=== PATIENT | female | born 1975 | race Caucasian/White ===

== ENCOUNTER → 2017-08-13 15:25 | Outpatient (CLI) | payer OTHER, SELFPAY ==
--- NOTE | 2017-08-13 15:29 | RAD_ITS ---
STUDY: X-RAY - LEFT ANKLE REASON FOR EXAM: Female, 42 years old. Injury. Pain TECHNIQUE: 3 view(s) of the ankle. COMPARISON: None. FINDINGS: Normal visualized distal tibia and fibula. Normal medial and lateral malleoli. Normal tibiotalar articulation and ankle mortise. Normal visualized talus. Plantar spur of the calcaneus. The visualized subtalar, talonavicular, calcaneocuboid and tarsal articulations are normal. There is no demonstrated fracture. The soft tissue structures are unremarkable. RAD/Ankle min 3 Views IMPRESSION: No fracture. Heel spur. Electronically Signed: Wayne Machuca MD at 23:31 EDT , Service support ,
== END ==
PROVIDERS: Family Provider Family Medicine; PCP Family Medicine; Visit Provider Physician Assistant
DX: S99.912A Unspecified injury of left ankle, initial encounter (principal)
CPT/HCPCS: 73610

== ENCOUNTER 2018-02-04 05:52 | Day surgery (SDC) | payer BC, SELFPAY ==
[2018-02-04 06:11] VITALS: BP 128/69; PULSE 79; TEMP 37; O2SAT 99; BMI 33.7
--- NOTE | 2018-02-04 07:54 | PCM.OPRPT ---
Report of Operation Date of Procedure: 02/04/18 Pre-Operative Diagnosis: menorrhaiga Post-Operative Diagnosis: same Surgery/Procedure Performed:: Hysteroscopy with a Ronda endometrial ablation Description of Surgical Findings:: Normal-appearing cervix and vagina, normal-appearing endometrial cavity. planer setter: None Type of Anesthesia:: MAC/Supplemental/Local Anesthesiologist: Karine Thayer Special Medications: none Specimen's removed: none Drains: none Estimated Blood Loss (mL): 10 Fluids Replaced: 700cc Description of Procedure: The patient was taken to the OR where she was prepped and draped in dorsal lithotomy position. The weighted speculum was placed in the vagina and the anterior lip of the cervix was grasped with a single-tooth tenaculum. A paracervical block was administered with 20 cc of 1% lidocaine with 1-100,000 epinephrine solution. The cervix was dilated serially with Hegar dilators. The 5mm hysteroscope was placed into the uterine cavity and the above findings were noted. Bilateral tubal ostia were identified. The uterus sounded to 11 cm and the cervical length was 5 cm. The endometrial cavity length was 6 cm. The hysteroscope was removed. The Ronda device was set to 6 cm. The instrument was then seated into the endometrial cavity and the indicator was in the green. The cervical seal balloon was inflated and the uterine integrity test was passed. The ablation procedure was initiated and completed without interruption. During the ablation procedure gentle traction was held on the tenaculum and the Ronda device was held up against the uterine fundus. When the ablation procedure was completed the Ronda was removed. The tenaculum was removed and the tenaculum site was noted to be hemostatic. All sponge and needle counts were correct. A vaginal sweep was performed by me. The patient was awakened and taken to the recovery room in stable condition. Hysteroscopic ins: 50 cc normal saline Hysteroscopic outs: The cc Findings: Endometrial cavity: Normal, no fibroids or polyps noted Cervix: Normal Vagina: Normal Grafts/Implants Used: none - Complications none - Admit VTE Documentation VTE Present on Admission: No VTE Mechan Device Prophylaxis: SCD's VTE Pharm Prophylaxis ordered?: No Reason prophylaxis not ordered:: Procedure Not Indicated
--- NOTE | 2018-02-04 07:57 | OP.PCM_ITS ---
Report of Operation Date of Procedure: 02/04/18 Pre-Operative Diagnosis: menorrhaiga Post-Operative Diagnosis: same Surgery/Procedure Performed:: Hysteroscopy with a Ronda endometrial ablation Description of Surgical Findings:: Normal-appearing cervix and vagina, normal-appearing endometrial cavity. vtc technician: None Type of Anesthesia:: MAC/Supplemental/Local Anesthesiologist: Karine Thayer Special Medications: none Specimen's removed: none Drains: none Estimated Blood Loss (mL): 10 Fluids Replaced: 700cc Description of Procedure: The patient was taken to the OR where she was prepped and draped in dorsal l ithotomy position. The weighted speculum was placed in the vagina and the anterior lip of the cervix was grasped with a single-tooth tenaculum. A paracervical block was administered with 20 cc of 1% lidocaine with 1-100,000 epinephrine solution. The cervix was dilated serially with Hegar dilators. The 5mm hysteroscope was placed into the uterine cavity and the above findings were noted. Bilateral tubal ostia were identified. The uterus sounded to 11 cm and the cervical length was 5 cm. The endometrial cavity length was 6 cm. The hysteroscope was removed. The Ronda device was set to 6 cm. The instrument was then seated into the endometrial cavity and the indicator was in the green. The cervical seal balloon was inflated and the uterine integrity test was passed. The ablation procedure was initiated and completed without interruption. During the ablation procedure gentle traction was held on the tenaculum and the Ronda device was held up against the uterine fundus. When the ablation procedure was completed the Ronda was removed. The tenaculum was removed and the tenaculum site was noted to be hemostatic. All sponge and needle counts were correct. A vaginal sweep was performed by me. The patient was awakened and taken to the recovery room in stable condition. Hysteroscopic ins: 50 cc normal saline Hysteroscopic outs: The cc Findings: Endometrial cavity: Normal, no fibroids or polyps noted Cervix: Normal Vagina: Normal Grafts/Implants Used: none - Complications none - Admit VTE Documentation VTE Present on Admission: No VTE Mechan Device Prophylaxis: SCD's VTE Pharm Prophylaxis ordered?: No Reason prophylaxis not ordered:: Procedure Not Indicated
[2018-02-04 08:00] VITALS: BP 110/62; BP 128/69; PULSE 93; RESP 16; TEMP 36.1; O2SAT 98
[2018-02-04 08:05] VITALS: BP 128/69; BP 94/63; PULSE 88; RESP 16; O2SAT 99
[2018-02-04 08:10] VITALS: BP 107/65; BP 128/69; PULSE 85; RESP 16; O2SAT 98
[2018-02-04 08:20] VITALS: BP 128/69; BP 98/67; PULSE 93; RESP 16; TEMP 36.9; O2SAT 98
[2018-02-04] MEDS: HYDROcodone Bitartrate/Apap 5/325 Tablet PO (08:37)
--- NOTE | 2018-02-04 08:42 | PCM.DC.D&C ---
Discharge Diet: No Restrictions Discharge Activity: Return to Normal Activity, May Shower, May Take a Tub Bath - in 2 weeks. Return to work on:: 02/06/18 May shower in (days): 0 May resume sexual activity in: 2 weeks Call your doctor if your incision/area has: Sudden Increased Bleeding, Foul Smelling Discharge Call your doctor if you observe: Fever of 101 or Higher, Using more than one pad per hour - for 2 hrs in a row Allergies/Adverse Reactions: Allergies ibuprofen [From Motrin] Allergy (Verified 01/28/18 08:40) Shortness of breath Medications to take at Discharge Biotin 5,000 mcg PO DAILY 01/28/18 Calcium Citrate 400 mg PO BID 01/28/18 Cholecalciferol (Vitamin D3) [Vitamin D3] 2,000 unit PO BID 01/28/18 Cyanocobalamin [Vitamin B12] 1,000 mcg PO WE 01/28/18 Ferrous Sulfate [Iron] 325 mg PO DAILY 01/28/18 Multivitamin [Multiple Vitamins] 1 each PO DAILY 01/28/18 Hydrocodone Bitart/Apap 5-325 [[place] 5MG-325MG] 1 tablet PO Q6H PRN PRN 4 Days #8 tablet 02/04/18 Ibuprofen [Motrin] 600 mg PO Q6H PRN #60 tablet 02/04/18 The following prescriptions were given: Hydrocodone Bitart/Apap 5-325 [[place] 5MG-325MG] 1 tablet PO Q6H PRN PRN 4 Days #8 tablet PRN Reason: Pain Ibuprofen [Motrin] 600 mg PO Q6H PRN #60 tablet PRN Reason: Pain Primary Care Physician: Care Physician,No Primary [Primary Care Provider] - Test Results: Test results from this visit will be discussed in further detail at your follow-up appointment, if applicable. Please Follow Up With: Sissy Rodriguez MD - [phone] When: 2-4 weeks or prn
[2018-02-04 08:56] VITALS: BP 120/78; BP 128/69; PULSE 78; RESP 16; TEMP 36.8; O2SAT 99
== END 2018-02-04 08:58 | disposition home or self-care (01) ==
LOC: SDC 05:53 → AC 05:55
PROVIDERS: Referring Provider Obstetrics & Gynecology; Visit Provider Obstetrics & Gynecology
PROC: 0U5B8ZZ Destruction of Endometrium, Via Natural or Artificial Opening Endoscopic (ICD-10-PCS; CPT 58558; principal; 2018-02-04 07:15)
DX: N92.0 Excessive and frequent menstruation with regular cycle (principal); D64.9 Anemia, unspecified; Z79.899 Other long term (current) drug therapy; G47.30 Sleep apnea, unspecified; Z98.84 Bariatric surgery status
CPT/HCPCS: 58563; J7120; J2405

== ENCOUNTER 2019-11-03 18:37 | Emergency (ER) | payer OTHER, SELFPAY ==
[2019-11-03 18:37] VITALS: BP 130/80; PULSE 88; RESP 18; TEMP 36.7; O2SAT 93; BMI 44.9
--- NOTE | 2019-11-03 19:32 | ED.VISSUMM ---
- ER Visit Summary Date of Service: 11/03/19 Chief Complaint: Midthoracic back pain acute on chronic History of Present Illness: The patient is a 44 F history of chronic back pain states he had back pain for months. It comes and goes. Worse laying supine. No fever. No chills. No prior back surgery. No prior back MRI. She has seen a chiropractor in the past. Denies any trauma. No leg weakness or numbness. No bowel or bladder incontinence. No dysuria. She has had symptoms like this before. Physical Examination: Middle-aged female no acute distress vital signs stable afebrile. H EENT exam unremarkable. Neck nontender. Lungs clear to auscultation bilaterally. Heart regular rhythm no murmur. Abdomen soft nontender normal bowel sounds no peritoneal signs. Extremities moves all 4. Neurovascular intact. 5-5 human anatomy teacher strength. Dorsi plantarflexion intact. She standing. She can raise up on her toes without any difficulty. No cauda equina. No saddle anesthesia. Back she points to her mid thoracic spine it hurts but is not reproducibly tender. There is no ecchymosis or bruising. No subcu air. No redness or warmth. There is no reproducible tenderness to her spine or paraspinal soft tissues. Neurologically she is awake and alert with no focal motor or sensory deficits. Normal motor strength and sensation bilaterally. Test Results: None Emergency Department Course and Treatment: Patient musculoskeletal back pain. Treated with p.o. Motrin. Treatment Plan: Referred to primary care physician Marck Andrade. Follow-up with not improving. Motrin for pain. Disposition: discharge Impression: Acute thoracic musculoskeletal back pain This note was generated with [employer] dictation software. It may contain incorrect words, spelling, and punctuation that were not noted in review of the chart prior to signing ED Disposition - Plan for ED Patient: Referrals: Care Physician,No Primary [Primary Care Provider] -
--- NOTE | 2019-11-03 19:35 | ED.DEP ---
ED Disposition - Plan for ED Patient: Disposition: Home or Assisted Living Instructions: ED Back Pain Acute or Chronic Referrals: Marck Andrade MD [[facility]] - 1 Week if not improving Additional Instructions: Motrin, Advil or ibuprofen for pain. May also use Tylenol. Follow-up if not improving.
[2019-11-03] MEDS: Ibuprofen 400 MG Tablet 800 MG PO (19:43)
[2019-11-03 19:44] VITALS: BP 126/78; PULSE 78; RESP 18; O2SAT 96
== END 2019-11-03 19:45 | disposition home or self-care (01) ==
PROVIDERS: Emergency Provider Emergency Medicine
DX: M54.6 Pain in thoracic spine (principal); G89.29 Other chronic pain
CPT/HCPCS: 99283

== ENCOUNTER → 2020-12-19 14:11 | Outpatient (CLI) | payer OTHER, SELFPAY ==
[2020-12-19 17:11] LABS: Thyroid Stim Hormone (TSH) 0.87 uIU/mL (0.358-3.74)
[2020-12-19 17:14] LABS: Vitamin B12 402 pg/mL (211-911); Vitamin D,25 Hydroxy 24.5 ng/mL
== END ==
LOC: BIMLAB 14:15
PROVIDERS: PCP Internal Medicine; Referring Provider Nurse Practitioner Family; Visit Provider Nurse Practitioner Family
DX: E53.8 Deficiency of other specified B group vitamins (principal); E66.9 Obesity, unspecified
CPT/HCPCS: 36415; 82306; 82607; 84443

== ENCOUNTER 2021-03-13 11:43 | Outpatient (CLI) | payer OTHER, SELFPAY ==
[2021-03-13 15:35] LABS: Anion Gap 5 (5-15); BUN 12 mg/dL (7-18); BUN/Creat Ratio 18.3 RATIO (10-20); Calcium,Total 9.9 mg/dL (8.5-10.1); Chloride 107 mmol/L (98-107); Creatinine, Serum 0.65 mg/dL (0.55-1.02); EST Glomerular Filtration Rate 105 mL/min (>60); Est Glom Filt Rate - Afr Amer 127 mL/min (>60); Glucose 84 mg/dL (74-106); Potassium 4.5 mmol/L (3.5-5.1); Sodium Level 140 mmol/L (136-145)
== END 2021-03-13 23:59 | disposition short-term general hospital (02) ==
LOC: BIMLAB 11:50
PROVIDERS: PCP Internal Medicine; Referring Provider Nurse Practitioner Family; Visit Provider Nurse Practitioner Family
DX: L65.9 Nonscarring hair loss, unspecified (principal)
CPT/HCPCS: 36415; 80048; 84443

== ENCOUNTER 2021-04-19 07:56 | Outpatient (CLI) | payer OTHER, SELFPAY ==
--- NOTE | 2021-04-19 08:00 | VDLE_ITS ---
Reason For Study: leg swelling RIGHT LEFT CFV is compressible, spontaneous, phasic, CFV is compressible, spontaneous, phasic, competent and demonstrates normal competent, and demonstrates normal augmentation. augmentation. FV is compressible, spontaneous, phasic, FV is compressible, spontaneous, phasic, competent and demonstrates normal competent and demonstrates normal augmentation. augmentation. POP V is compressible, spontaneous, phasic, POP V is compressible, spontaneous, phasic, competent and demonstrates normal competent and demonstrates normal augmentation. augmentation. T/P Trunk is compressible. T/P Trunk is compressible. PTV is compressible. PTV is compressible. RT PerV is compressible. LT PerV is compressible. SFJ is competent and measures 0.70 x 0.70 cm. SFJ is competent and measures 0.51 x 0.70 cm. GSV proximal thigh measures 0.66 x 0.55 cm. GSV proximal thigh measures 0.53 x 0.58 cm. GSV at knee measures 0.45 x 0.42 cm. GSV at knee measures 0.48 x 0.49 cm. GSV is competent throughout. GSV is competent throughout. SSV proximal calf is competent and measures SSV proximal calf is competent and measures 0.24 x 0.27 cm. 0.22 x 0.24 cm. Compressible varocosities noted prox/anterior thigh, lateral knee and prox/lateral calf. Procedure This is a venous duplex using B-mode, color flow and spectral Doppler. Exam performed in department. The exam was diagnostic. VL/Venous Duplex US - Christiano Extrem Interpretation Summary Deep veins of the lower extremities are bilaterally patent and compressible seg mentally. There is no evidence of deep vein thrombosis on either side. Valvular competence appears in tact within the proximal deep venous systems bilaterally. The great saphenous veins appear bila terally patent and compressible segmentally. Sapheno-femoral junctions are bilaterally competent . Valvular competence appears to be intact segmentally within the great saphenous veins bilaterally. Small saphenous veins are patent and competent bilaterally. Superficial varicosities are noted in the right thigh and calf. Ordering Physician: Reji Duckworth Referring Physician: Mynor Garcia Performed By: Mariposa Reeves, ALPHONSO, RVT
== END 2021-04-19 23:59 | disposition home or self-care (01) ==
LOC: CVS 07:57
PROVIDERS: PCP Internal Medicine; Referring Provider Surgery; Visit Provider Surgery
DX: M79.89 Other specified soft tissue disorders (principal); M79.606 Pain in leg, unspecified
CPT/HCPCS: 93970

== ENCOUNTER 2021-06-07 16:52 | Outpatient (CLI) | payer OTHER, SELFPAY ==
[2021-06-14 13:29] LABS: HPV APTIMA, High Risk Negative (Negative)
== END 2021-06-07 23:59 | disposition home or self-care (01) ==
LOC: OPBI 16:53
PROVIDERS: PCP Internal Medicine; Visit Provider Obstetrics & Gynecology
DX: Z12.4 Encounter for screening for malignant neoplasm of cervix (principal)
CPT/HCPCS: 87624; 88175; G0145

== ENCOUNTER 2021-06-13 13:14 | Outpatient (CLI) | payer OTHER, SELFPAY ==
--- NOTE | 2021-06-13 13:17 | BI_ITS ---
MAMMOGRAPHY - BILATERAL SCREENING REASON FOR EXAM: Female, 46 years old. Routine annual screening examination. PERTINENT HISTORY: Non-contributory. TECHNIQUE: Digital bilateral breast adriana (3D mammographic acquisition) in the CC and MLO projections. 2-D mediolateral oblique (MLO) and craniocaudad (CC) views of both breasts were obtained. CAD: Full Field Digital Mammography with Computer Added Detection was performed. COMPARISON: None. Baseline examination. FINDINGS: Breast Composition: There are scattered areas of fibroglandular density. There are no dominant masses or suspicious calcifications. No other significant abnormalities are identified. BI/SCRN MAMM (CAD)W/ADRIANA BILAT IMPRESSION: Negative screening mammogram. Yearly followup mammogram recommended. (A) ASSESSMENT CATEGORY: BIRADS Category 1: Negative. A letter regarding these results will be sent to the patient by the facility within 30 days. Approximately 10% of breast cancers are not detected by mammography. A normal mammogram should not delay biopsy of a clinically suspicious abnormality. [id number] Electronically Signed: Jose Mejía MD at 14:21 EDT ,
== END 2021-06-13 23:59 | disposition home or self-care (01) ==
LOC: OPBI 13:15
PROVIDERS: PCP Internal Medicine; Visit Provider Obstetrics & Gynecology
DX: Z12.31 Encounter for screening mammogram for malignant neoplasm of breast (principal)
CPT/HCPCS: 77063; 77067

== ENCOUNTER 2021-06-14 11:14 | Outpatient (CLI) | payer OTHER, SELFPAY ==
--- NOTE | 2021-06-14 11:15 | US_ITS ---
STUDY: ULTRASOUND OF THE FEMALE PELVIS - COMPLETE REASON FOR EXAM: Female, 46 years old. Mixed incontinence LMP: 05/15/2021. TECHNIQUE: Transabdominal and Transvaginal TECHNICAL QUALITY: Adequate. COMPARISON: None. FINDINGS: The uterus is anteverted and is in a midline position. The uterus measures 12 cm x 5.8 cm x 5.7 cm. There is a Nabothian cyst of the cervix. The endometrium measures 5.2 mm in thickness, and is hyperechoic. There is no demonstrated endometrial mass. There is a 2.7 cm x 2.4 cm x 1.9 sono fundal fibroid. I.U.D. - The patient does not have an I.U.D. The right ovary is visualized. The right ovary measures 2.8 cm x 2.5 cm x 1.5 cm. There is no right ovarian cyst or ovarian mass. There is no visualized right adnexal mass or complex lesion. There is normal arterial and normal venous vascularity. The left ovary is visualized. The left ovary measures 4.1 cm x 2.5 cm x 2.2 cm. There is a 2.5 cm x 2.2 cm by 2.1 cm left ovarian cyst. There is no visualized left adnexal mass or complex lesion. There is normal arterial and normal venous vascularity. There is no fluid in the cul-de-sac. The pre void volume of the bladder was 982 ml. US/Pelvic (Non ) IMPRESSION: Fibroid uterus. 2.5 cm x 2.2 cm x 2.1 cm left ovarian cyst. Electronically Signed: Jose Mejía MD at 13:50 EDT ,
--- NOTE | 2021-06-14 11:15 | US_ITS ---
STUDY: ULTRASOUND OF THE FEMALE PELVIS - COMPLETE REASON FOR EXAM: Female, 46 years old. Mixed incontinence LMP: 05/15/2021. TECHNIQUE: Transabdominal and Transvaginal TECHNICAL QUALITY: Adequate. COMPARISON: None. FINDINGS: The uterus is anteverted and is in a midline position. The uterus measures 12 cm x 5.8 cm x 5.7 cm. There is a Nabothian cyst of the cervix. The endometrium measures 5.2 mm in thickness, and is hyperechoic. There is no demonstrated endometrial mass. There is a 2.7 cm x 2.4 cm x 1.9 sono fundal fibroid. I.U.D. - The patient does not have an I.U.D. The right ovary is visualized. The right ovary measures 2.8 cm x 2.5 cm x 1.5 cm. There is no right ovarian cyst or ovarian mass. There is no visualized right adnexal mass or complex lesion. There is normal arterial and normal venous vascularity. The left ovary is visualized. The left ovary measures 4.1 cm x 2.5 cm x 2.2 cm. There is a 2.5 cm x 2.2 cm by 2.1 cm left ovarian cyst. There is no visualized left adnexal mass or complex lesion. There is normal arterial and normal venous vascularity. There is no fluid in the cul-de-sac. The pre void volume of the bladder was 982 ml. US/Transvaginal Non- IMPRESSION: Fibroid uterus. 2.5 cm x 2.2 cm x 2.1 cm left ovarian cyst. Electronically Signed: Jose Mejía MD at 13:50 EDT ,
== END 2021-06-14 23:59 | disposition home or self-care (01) ==
LOC: US 11:14
PROVIDERS: PCP Internal Medicine; Referring Provider Obstetrics & Gynecology; Visit Provider Obstetrics & Gynecology
DX: N39.46 Mixed incontinence (principal)
CPT/HCPCS: 76830; 76856

== ENCOUNTER → 2021-07-22 | Outpatient (CLI) | payer OTHER, SELFPAY | END | disposition home or self-care (01) | LOC: RAD 12:02 | PROVIDERS: PCP Internal Medicine; Referring Provider Chiropractor; Visit Provider Chiropractor | DX: M99.02 Segmental and somatic dysfunction of thoracic region (principal) | CPT/HCPCS: 72070 ==

== ENCOUNTER → 2021-08-25 | Outpatient (CLI) | payer OTHER, SELFPAY ==
[2021-08-25 14:22] LABS: Bacteria 0 SEEN /hpf (None Seen); Mucous, Urine 0 SEEN /hpf (<or=2+); Red Blood Cells-Urine 0 SEEN /hpf (0-5); Squamous Epithelial Cells - UA 0 SEEN /hpf (5-10)
[2021-08-25 14:35] LABS: Color, Urine Yellow (Yellow); Glucose, Dipstick Normal (Normal); Ketone-Dipstick Negative (Negative); Leukocyte Esterase-Dipstick 500 /ul (Negative); Nitrite-Dipstick Negative (Negative); Occult Blood-Urine 250 /ul (Negative); Protein-Dipstick 30 mg/dl (Negative); Urine Bilirubin Dipstick Negative (Negative); Urine Clarity Clear (Clear); Urine Urobilinogen Normal (Normal)
[2021-08-25 14:45] LABS: White Blood Cells 10-25 SEEN /hpf (0-5)
== END | disposition home or self-care (01) ==
PROVIDERS: PCP Internal Medicine; Visit Provider Nurse Practitioner Family
DX: R30.9 Painful micturition, unspecified (principal)
CPT/HCPCS: 81001; 87077; 87086; 87088

== ENCOUNTER → 2021-09-08 | Outpatient (CLI) | payer OTHER, SELFPAY ==
[2021-09-08 15:11] LABS: Bacteria 0 SEEN /hpf (None Seen); Mucous, Urine 0 SEEN /hpf (<or=2+)
[2021-09-08 15:18] LABS: Color, Urine Straw (Yellow); Glucose, Dipstick Normal (Normal); Ketone-Dipstick Negative (Negative); Leukocyte Esterase-Dipstick 500 /ul (Negative); Nitrite-Dipstick Negative (Negative); Occult Blood-Urine 150 /ul (Negative); Protein-Dipstick 30 mg/dl (Negative); Urine Bilirubin Dipstick Negative (Negative); Urine Clarity Clear (Clear); Urine Urobilinogen Normal (Normal)
[2021-09-08 15:30] LABS: Red Blood Cells-Urine 5-10 SEEN /hpf (0-5); Squamous Epithelial Cells - UA 0-5 SEEN /hpf (5-10); White Blood Cells 10-25 SEEN /hpf (0-5)
== END | disposition home or self-care (01) ==
PROVIDERS: PCP Internal Medicine; Visit Provider Nurse Practitioner Family
DX: N39.0 Urinary tract infection, site not specified (principal)
CPT/HCPCS: 81001; 87077; 87086; 87088; 87186

== ENCOUNTER 2021-10-17 18:03 | Observation (INO) | payer OTHER, SELFPAY ==
--- NOTE | 2021-10-08 15:39 | EKG12_ITS ---
Test Reason : PRE-OP Blood Pressure : / mmHG Vent. Rate : 061 BPM Atrial Rate : 061 BPM P-R Int : 172 ms QRS Dur : 092 ms QT Int : 430 ms P-R-T Axes : 033 027 041 degrees QTc Int : 432 ms Normal sinus rhythm Low voltage QRS Borderline ECG Confirmed by JOSE VICTOR, YVAN ([id number]), make up editor DANYA ONTIVEROS ([id number]) on 10/09/2021 12:51:48 PM Referred By: Allie Coker Confirmed By:YVAN GARCIA MD
[2021-10-14 07:17] LABS: Hematocrit 36.8 % (37-47); Hemoglobin 11.9 g/dL (12.0-15.0); Mean Corp Hgb Conc 32.3 g/dL (32-36); Mean Corpuscular Hgb 27.9 pg (27.0-32.0); Mean Corpuscular Volume 86.2 fL (81-99); Platelet Count 276 K/mm3 (150-450); RBC Distribution Width CV 13.6 % (11.6-14.6); Red Blood Count 4.27 M/mm3 (4.2-5.4); White Blood Count 6.2 K/mm3 (4.4-11.0)
[2021-10-14 07:33] LABS: Partial Thromboplast Time 29.7 Seconds (24.1-36.2)
[2021-10-14 07:52] LABS: Magnesium 2.2 mg/dL (1.6-2.6)
[2021-10-17] VITALS (19 sets, daily range): BP systolic 107–128; BP diastolic 63–80; PULSE 42–102; RESP 14–18; TEMP 36.3–37.2; O2SAT 93–100; BMI 43.4
--- NOTE | 2021-10-17 | HYST_PTH ---
PATIENT: FABIENNE FRANKS LOC: MS3 U#:[id number] AGE/SX: 46/F ROOM: [facility] [place] RE10/17/[address]: Dr. Allie Coker DO : 1975 BED: 1 DIS: 10/18/2021 SPEC #: [id number] RECD: 10/17/21 12:50 STATUS: CHATO ZAMARRIPABre #: [id number] CARLY: 10/17/21 00:[address]: Allie Coker DEPT: SURGICAL PATHOLOGY RECD BY: Mani Soriano ENTERED: 10/17/21 12:50 SP TYPE: HYSTERECT OTHR DR: MD Dr. Mynor Delatorre MD Dr. Holly Wyneski, MD Tissues: Uterus, NOS Procedures: Surgery Specimen Level V HEADER OPERATION: ERAS, total robotic hysterectomy, right salpingectomy, mid urethral salpingectomy PRE-OP DIAGNOSIS: Dyspareunia, abnormal uterine bleeding, stress urinary incontinence TISSUE SUBMITTED: Uterus, cervix, right fallopian tube MICROSCOPIC DIAGNOSIS Uterus, cervix, right fallopian tube, hysterectomy and right salpingectomy: Cervix ? chronic inflammation. Endometrium ? mostly denuded endometrium with focal area of proliferative endometrium, consistent with h/o endometrium ablation. Myometrium ? focal adenomyosis - a small intramural leiomyoma. Right fallopian tubes - no pathologic diagnosis. 10/18/2021 MICROSCOPIC DESCRIPTION Slides are reviewed. GROSS DESCRIPTION Received in fixative is one container labeled with the patient's name and designated uterus. The specimen consists of a hysterectomy specimen consisting of uterus, cervix and detached fallopian tube identified as right. The uterus with cervix weighs 121.5 gm and measures 12 x 7 x 5 cm. The serosal surface is ragged anteriorly. A filschie clip is noted at the right cornua and appears intact. The ectocervical mucosa is unremarkable. The external os is circular in contour. The endocervical canal measures 4.5 cm in length and the endocervical mucosa is unremarkable. The endometrial cavity is narrow and measures 5 cm in length and 0.5 cm in width. The endometrium is hdez, glistening and measures 0.1 cm in thickness. Sections of the uterine wall reveal one small nodular mass in the anterior uterine wall measuring 0.5 cm in diameter. Uterine wall measures up to 3.0 cm in thickness. The fallopian tube measures 3.5 cm in length and 1.0 cm in diameter. Fimbrial end is identified. Sections reveal unremarkable cut surfaces. Canvas Cutter Machine sections are submitted in seven cassettes as follows: 1 - anterior cervix, 2 - posterior cervix, 3 & 4 - anterior uterine wall (cassette 3 contains the nodular mass), 5 & 6 - posterior uterine wall, 7 ? right fallopian tube. /SJ:cc 10/17/21 TC:5 CPT: 44559
[2021-10-17 06:10] LABS: Bedside Glucose 77 mg/dL (74-106)
[2021-10-17] MEDS: Lactated Ringers 1,000 ML 40 ML IV (06:17)
[2021-10-17] MEDS: Scopolamine 1mg/72hr Patch 1 PATCH TD (06:23)
[2021-10-17] MEDS: Gabapentin 600 MG Tablet PO (06:23)
[2021-10-17] MEDS: Acetaminophen 500 MG Tablet 1000 MG PO ×2 (06:23→19:07)
[2021-10-17 06:42] LABS: Internal QC Validated? YES +Cl - CLEAR BKGD; Pregnancy, Urine Negative Negative
--- NOTE | 2021-10-17 08:03 | HP.PCM_ITS ---
History and Physical Date of Admission: 10/17/21 Name:? FABIENNE FRANKS Rep #: [id number] : 1975 ? ? Provider: Dr. Allie Coker, DO Age/Sex:? 46/F ? ? Location: [facility] [place] Status: Signed Intake Vital Signs ? 07/16/2214:43 09/26/2214:20 Height 5 ft 4 in 5 ft 4 in Weight: ? 257 lb 8 oz BMI ? 44.1 BP ? 118/82 H Intake Visit Reasons:?total robotic hyst BS cysto Grip Required: No Is patient in pain?: Yes Allergies ibuprofen [From Motrin] Allergy (Verified 09/26/21 15:42) Shortness of breath Medications cyanocobalamin (vitamin B-12) 1,000 mcg/mL injection solution 1,000 mcg IM QMONTH 06/26/21 [History Confirmed 09/26/21] Is last menstrual period known: Yes Post menopausal: No Patient : No : No Current gender identity: female [facility] Medical History? Back pain Chronic back pain Hair loss disorder Neck pain Obesity Tiredness Varicose veins of both lower extremities Vitamin B12 deficiency Weight loss Surgical History? History of History of endometrial ablation History of gastric stapling History of tonsillectomy History of tubal ligation Family History? Father Diabetes Heart disease Lung cancer ?? ? smoker- agent orange ?? ? Social History? current gender identity:? female Smoking Status:? Never smoker alcohol intake:? never substance use type:? does not use caffeine:? Yes what type of physical activity do you participate in:? none seatbelt use:? always do you feel safe at home:? Yes additional social history:? Jose- [employer] in [place] patient works at [employer] HPI total robotic hyst BS cysto Details: FABIENNE FRANKS is a 46 year old who presents for Pregancy History ? ? ? 3 ? Elective abortions ? Hx Para ? ? ? 3 ? Spontaneous abortions ? Hx # Term Pregnancies ? Ectopic pregnancies ? Hx # Pregnancies ? Multiple births ? # of living children ? Past Pregnancies Del. Date Name GA/Weeks Outcome Route Bth Weight Infant Gen Labor Lgth Anesthesia Del Locatn Provider FOB Unknown [facility] ? live - full term C -section ? Unknown 2000 [facility] ? live - full term C-sec tion ? Unknown 2005 [facility] ? live - full term C -section ? ROS Const ROS Unobtainable: All systems reviewed & are unremarkable except as noted in H Resp Resp: Reports system reviewed and no additional complaints, except as documented; Denies cough GI GI: Reports as per HPI Psych Psych: Reports system reviewed and no additional complaints, except as documented Exam Const General: cooperative, healthy appearing, comfortable and no acute distress Resp Effort & Inspection: normal respiratory effort Skin General: no rashes or lesions noted Psych Appearance: grossly normal Speech and Movement: speech and movement normal Coding Level of Care Code Off vis,est,level 5 Diagnoses Dyspareunia? Abnormal uterine bleeding? N93.9 Obesity? E66.9 Assessment and Plan Assessment and Plan (1) Dyspareunia: ?Status:?Acute ?Comment: deep- doxycycline ordered, US, if no resolution suspect adenomyosis. (2) Abnormal uterine bleeding: ?Status:?Acute ?Comment: s/p ablation, now reduced bleeding but irregular and painful. ordered US (3) Obesity: ?Status:?Acute Plan After discussing the patient's diagnosis and treatment plan options, patient wishes to proceed with surgical management. The plan is for a total robotic hysterectomy, bilateral salpingectomy, cystoscopy on 10/17/2021 ?I have discussed with the patient the risks, benefits, and alternatives of the procedure which include but are not limited to risks of anesthesia, bleeding, infection, possible damage to bowel, bladder, or surrounding vasculature which could lead to additional surgery to evaluate any complications.? Patient agrees to procedure and wishes to proceed.? ACOG/uptodate references given for additional information regarding procedure.? Plan Details Goals & Barriers: Goals Decrease spasm Improve sleep Decrease pain Barriers Overuse UPDATE- I have seen the patient and performed any clinically relevant updates to the history and physical exam. Allie Coker, DO
[2021-10-17] MEDS: Cefazolin 2 GM in 0.9% Normal Saline 100 ML IV (08:06)
--- NOTE | 2021-10-17 08:07 | PCM.DC ---
Discharge Instructions Diet Discharge Diet: No restrictions Activity May resume sexual activity in: 6 weeks Weight Bearing Status: Full weight bearing Dressing / Incision Call your doctor if your incision/area has: Continuous Slow Oozing, Sudden Increased Bleeding, Increased Pain/ Swelling, Increased Redness and Foul Smelling Discharge Call your doctor if you observe: Fever of 101 or Higher, Using more than 1 pad per hour, Shortness of breath, Chest pain and Uncontrolled pain Suture Line Care: Avoid Pulling/Pushing and Avoid Pinching/Bending Remove Dressing in: 1 week (if present) Cleanse incision/area with: Soap & Water and Keep Dressing Clean & Dry Follow Up Care Please Follow Up With: Allie Coker DO When: Call to make an appointment with your doctor for a postop visit in 2 and 6 weeks Test Results: Test results from this visit will be discussed in further detail at your follow-up appointment, if applicable. Discharge Plan Admission Primary Reason for Your Visit: hysterectomy and sling procedure Attending Provider: Allie Coker Primary Care Provider: Mynor Garcia Consulting Providers: Marck Sampson ; Antonia Torres Discharge Orders/Prescriptions Prescriptions: New oxycodone-acetaminophen [Percocet] 5-325 mg tablet 1 tab PO Q4H PRN (Reason: pain) 7 Days Qty: 30 0RF naproxen 500 mg tablet 500 mg PO BID PRN PRN (Reason: Pain) Qty: 30 0RF No Action cyanocobalamin (vitamin B-12) 1,000 mcg/mL solution 1,000 mcg IM QMONTH Other Ambulatory Orders: ,Urine (Routine) Timeframe: 20211017 Facility: [facility] - Location: Laboratory Ordered By: Dr. Allie Coker Referrals / Follow Up: Mynor Garcia MD [Primary Care Provider] - Disposition Disposition (needs filled in before D/C Order can be placed): Home, Self Care
--- NOTE | 2021-10-17 08:52 | PCM.OPRPT ---
Report of Operation Date of Procedure: 10/17/21 Pre-Operative Diagnosis: Stress urinary incontinence Post-Operative Diagnosis: Same Surgery/Procedure Performed:: Mid urethral sling insertion, cystourethroscopy with bilateral ureteral catheterization Surgeon: Antonia Torres Type of Anesthesia: General Estimated Blood Loss (mL): 25 cc Description of Procedure: The patient is a 46-year-old female undergoing a robotic assisted laparoscopic hysterectomy and mid urethral sling insertion for management of her stress incontinence. Informed consent was obtained. The patient was taken to the operating room and placed on the operating room table. Anesthesia monitored the head, neck, airway, IV access and vital signs throughout the case. Once anesthesia was appropriate ministered, the patient was placed into the dorsal lithotomy position. A Cano catheter was inserted to straight drain. Dr. Hawley performed her part of the procedure and the case was turned over to az. The mid urethra was isolated and injected submucosally with vasopressin for hydrostatic dissection and hemostatic control. A midline vertical 2 cm incision was made and sharp and blunt dissection was then performed on either side of the urethra. Care was taken to avoid entrance into the urethra or the vaginal mucosa. Using the provided trochars, the Altis mid urethral sling was inserted into the transobturator complexes bilaterally. The sling was positioned using the tensioning suture. The suture was then cut. The incision was closed using running interlocking 2-0 Vicryl. The Cano catheter was removed and the cystoscope was inserted under direct visualization through the urethra into the urinary bladder. The bladder mucosa was visualized and found to be without evidence of foreign body, hemorrhage, injury or mass. A whistle-tip catheter was used to gently cannulate each ureteral orifice and it was advanced to 20 cm bilaterally without difficulty or evidence of injury. At this time the bladder was emptied and the cystoscope was removed. The patient was awakened and taken to the recovery room in good condition. There were no complications during this procedure. Grafts/Implants Used: Altis mid urethral sling Complications None Admit VTE Documentation VTE Present on Admission: Yes VTE Mechan Device Prophylaxis: SCD's VTE Pharm Prophylaxis ordered?: No Reason prophylaxis not ordered:: Treatment Not Indicated
[2021-10-17] MEDS: Bupivacaine 0.25% 30 ML Vial (10:45)
[2021-10-17] MEDS: Ondansetron 4 MG/2 ML Vial IV (10:55)
--- NOTE | 2021-10-17 12:06 | EX.PCM.DISCH ---
Discharge Instructions Diet Discharge Diet: No restrictions Activity Discharge Activity: May Shower May resume sexual activity in: 6 weeks Weight Bearing Status: Full weight bearing Dressing / Incision Call your doctor if your incision/area has: Continuous Slow Oozing, Sudden Increased Bleeding, Increased Pain/ Swelling, Increased Redness and Foul Smelling Discharge Call your doctor if you observe: Fever of 101 or Higher, Using more than 1 pad per hour, Shortness of breath, Chest pain and Uncontrolled pain Suture Line Care: Avoid Pulling/Pushing and Avoid Pinching/Bending Cleanse incision/area with: Soap & Water and Keep Dressing Clean & Dry Follow Up Care Please Follow Up With: Allie Coker DO When: with , call for appt Test Results: Test results from this visit will be discussed in further detail at your follow-up appointment, if applicable. Discharge Plan Admission Primary Reason for Your Visit: hysterectomy and sling procedure Attending Provider: Allie Coker Primary Care Provider: Mynor Garcia Consulting Providers: Marck Sampson ; Antonia Torres Discharge Orders/Prescriptions Prescriptions: New oxycodone-acetaminophen [Percocet] 5-325 mg tablet 1 tab PO Q4H PRN (Reason: pain) 7 Days Qty: 30 0RF naproxen 500 mg tablet 500 mg PO BID PRN PRN (Reason: Pain) Qty: 30 0RF cephalexin [cephalexin] 500 mg capsule 500 mg PO Q12 3 Days Qty: 6 0RF No Action cyanocobalamin (vitamin B-12) 1,000 mcg/mL solution 1,000 mcg IM QMONTH Other Ambulatory Orders: ,Urine (Routine) Timeframe: 20211017 Facility: [facility] - Location: Laboratory Ordered By: Dr. Allie Coker Referrals / Follow Up: Mynor Garcia MD [Primary Care Provider] - Disposition Disposition (needs filled in before D/C Order can be placed): Home, Self Care
[2021-10-17] MEDS: Lactated Ringers 1,000 ML 100 ML IV (13:05)
[2021-10-17] MEDS: HYDROcodone Bitartrate/Apap 5/325 Tablet PO (16:49)
--- NOTE | 2021-10-17 17:13 | OP.PCM_ITS ---
Operative Report Date of Procedure: 10/17/21 Preoperative diagnosis: Menorrhagia pelvic pain fibroid uterus Postoperative diagnosis: Menorrhagia pelvic pain fibroid uterus Procedure: Total robotic hysterectomy, lysis of adhesions Anesthesia: General endotracheal intubation Estimated blood loss: 200cc Urine output:400cc Drains: None Implanted material: None Complications: None Surgeon: Dr. Allie Coker DO Vice President Of Engineering: JENNIFER Abebe Findings: 10 cm size uterus, normal appearing ovaries and tubes. On exploration of the abdominal cavity the uterus, adnexa, bowel, and liver were found to be normal. There was extensive adhesions of the omentum to the anterior abdominal wall and extensive adhesions of the anterior uterine wall to the anterior abdominal wall. Specimens removed: Uterus and cervix, right fallopian tube Reason for surgery: This is a 46-year-old G3, P3 who presented to my office from Dr. Miller with history of moderate to severe pelvic pain and history of prior C-sections x3, and enlarged fibroid uterus. the planned procedure is for a robotic hysterectomy the risks benefits and alternatives were discussed with the patient the patient had a clear understanding of the procedure and a consent form was signed. Procedure: The patient was placed in the dorsal low lithotomy position and prepped and draped in the normal sterile fashion both abdominally and in the perineum. Her legs were placed in stirrups a Cano catheter was inserted into the urethra without difficulty. A weighted speculum was placed in the vagina and a single- tooth tenaculum was used to grasp the anterior lip of the cervix. An advincula uterine manipulator was inserted through the cervix without complication. It was then tied into place at the 2 and 10:00 locations on the cervix. Gloves were changed and attention was turned towards the abdomen. Approximately 23 cm above the pubic symphysis in the midline, and after Marcaine injection, a [8] mm incision was made. An 8 mm trocar was inserted through the laparoscope, then inserted into the abdomen under direct visualization using the laparoscope. Good abdominal placement was noted and no complications were appreciated. An air seal device was utilized to create pneumoperitoneum. At 12 cm lateral to the midline on the left and right sides 8 mm accessory ports were placed. Next a left upper quadrant 8 mm or assistant port site was placed. The patient was placed in steep Trendelenburg position. The robot was docked. The hysterectomy was initiated first by taking down the round ligament on each side using the vessel sealer device. There was noted to be a marked amount of omental adhesions to the anterior abdominal wall extending from the right upper quadrant down to the left aspect of the uterus. These adhesions were taken down starting with the vessel sealer device and also using the laparoscopic scissors to carefully remove the omentum for adequate visualization. Anterior uterine adhesions were noted and taken down using the monopolar cautery. At this time the uterine manipulator was found to be misplaced and was readjusted and reinserted. Once the anterior adhesions were removed, The IP ligament was then taken down using the vessel sealer device. These areas were freed without complication. the broad ligament was then and taken down using the vessel sealer device. Next the bladder flap was taken down without complication. This was done using monopolar cautery to the level of the cervical vaginal junction. After the bladder flap was created, uterine vessels were then isolated and cauterized using the vessel sealer device and EndoShears. At this point the uterine vessels were taken down further starting from the ascending branch, dissecting along the edges of the cervix to the level of the cervical vaginal junction with hemostasis appreciated. The cervical vaginal junction was then using monopolar cautery in a circumferential pattern across the superior aspect of the cervix. The specimen was delivered through the vagina and sent to pathology. The remaining vaginal cuff was then closed using OV lock suture. This was performed in a running technique. Excellent hemostasis was obtained and good closure was noted. Irrigation was then performed. There was some's light amount of bleeding from the vaginal cuff after the procedure noted in the vaginal canal only this was oversewn using 0 Vicryl sutures however with the each pass of the needle there was tiny needle austen areas that were oozing with blood and for this fibrillar was used for hemostasis. all operative sites were noted to be hemostatic. The abdominal cavity was again examined using the laparoscope after the robot was undocked. All operative sites were noted to be hemostatic. The trochars were removed under direct visualization without complication and pneumoperitoneum was reduced. At this point the skin was then closed using 4-0 Monocryl subcuticular stitch and sealed with surgical glue. The patient tolerated the procedure well sponge lap and needle counts were correct x2 the patient was taken to the recovery room in stable condition. The remaining procedure was performed by Dr.Wyneski Slime Khoury in the separate dictation Multi Select Codes Urinary/Genital Urinary/Genital CPT Codes: 54180 TLH+BS/O <250gr uterus and Other Procedure See Report (lysis of adhesions )
[2021-10-17] MEDS: 0.9% Saline Lock 10 ML Syringe IV ×2 (19:30→21:52)
[2021-10-17] MEDS: Morphine 2 MG/ML Syringe IV (21:51)
[2021-10-17] MEDS: Docusate Sodium 100 MG Capsule PO (21:52)
[2021-10-18] MEDS: Acetaminophen 500 MG Tablet 1000 MG PO ×2 (00:29→06:32)
[2021-10-18 02:23] VITALS: BP 111/69; PULSE 74; RESP 16; TEMP 36.7; O2SAT 100
[2021-10-18 06:19] LABS: Hemoglobin 10.3 g/dL (12.0-15.0); Mean Corp Hgb Conc 32.2 g/dL (32-36); Mean Platelet Vol. 10.3 fl (6.2-12.0); Platelet Count 231 K/mm3 (150-450); RBC Distribution Width CV 13.6 % (11.6-14.6); RBC Distribution Width SD 43.5 fl (35.1-43.9); Red Blood Count 3.68 M/mm3 (4.2-5.4); White Blood Count 10.1 K/mm3 (4.4-11.0)
[2021-10-18 06:48] VITALS: O2SAT 98
[2021-10-18 07:47] VITALS: BP 110/70; PULSE 68; RESP 16; TEMP 36.6; O2SAT 94
--- NOTE | 2021-10-18 08:15 | PCM.PN.OB ---
Subjective Subjective patient recovering well, denies CP, SOB, N, or V. patient is ambulating, voiding ,tolerating adequate po, and pain is controlled with oral medications. Objective Data Objective Data Vital Signs: Vital Signs Temp Pulse Resp BP Pulse Ox O2 Del Method O2 Flow Rate 98 F 68 16 110/70 94 Room Air 2 10/18/21 07:47 10/18/21 07:47 10/18/21 07:47 10/18/21 07:47 10/18/21 07:47 10/18/21 07:47 10/18/21 06:48 Oxygen Flow Rate (L/min) 2 Oxygen Delivery Method Room Air Weight: 253 lb 3.2 oz Body Mass Index (BMI) 43.4 Intake & Output: Intake and Output for Last 24 Hours 10/16/21 10/17/21 10/18/21 23:59 23:59 23:59 Intake Total 2862 / 2862 900 / 900 Output Total 2400 / 2400 1000 / 1000 Balance 462 / 462 -100 / -100 Lab / Micro Data Result Diagrams: 10/18/21 04:54 Labs: Laboratory Results - last 24 hr 10/18/21 04:54: WBC 10.1, RBC 3.68 L, Hgb 10.3 L, Hct 32.0 L, MCV 87.0, MCH 28.0, MCHC 32.2, RDW Std Deviation 43.5, RDW Coeff of Aretha 13.6, Plt Count 231, MPV 10.3 ROS Constitutional Constitutional: Denies chills, fatigue, fever(s), poor appetite or weakness Eyes Eyes: Denies blurry vision, change in vision, seeing flashes or spots in vision ENT HEENT: Denies dizziness, headache(s), loss taste/smell or sore throat Cardiovascular Cardiovascular: Denies chest pain, dizziness, dyspnea, irregular heart rhythm, palpitations or rapid heart rate Respiratory/Chest Respiratory/Chest: Denies chest tightness, cough, dyspnea or breast pain Gastrointestinal Gastrointestinal: Denies abdominal pain, constipation or vomiting Genitourinary Genitourinary: Denies dysuria or flank pain Musculoskeletal Musculoskeletal: Denies difficulty walking, joint pain, limited range of motion or numbness Neurologic Neurologic: Denies abnormal movements, abnormal speech, dizziness, numbness, seizure-like activity or syncope Psychiatric Psychiatric: Denies anxiety, behavioral changes, change in appetite, confusion, depression or suicidal thoughts Physical Exam Const alert, oriented x3 and no apparent distress General Appearance: cooperative and comfortable Resp normal respiratory effort Cardio regular rate GI normal to inspection, nondistended, normoactive bowel sounds GI Narrative: uterus is firm below umbilicus Palpation: soft Back/Spine no CVA tenderness and thoraco-lumbar ROM normal Extremity normal to inspection, no clubbing, cyanosis or edema, no calf tenderness and no pedal edema Psych mental status grossly normal, thought process normal, cooperative, affect normal, speech normal, activity/motor behavior normal, denies homicidal ideation and denies suicidal ideation Assessment & Plan (1) Status post hysterectomy: PLAN: Plan patient is s/p total robotic hysterectomy, lysis of adhesions, midurethral sling and cysto, POD 1 1. routine ERAS protocol postop care- increase ambulation, encourage oral intake and oral control of pain. scds for dvt prophylaxis, patient stable for discharge to home.
[2021-10-18] MEDS: Docusate Sodium 100 MG Capsule PO (09:00)
--- NOTE | 2021-10-18 10:19 | PHA.DC.MC ---
Pharmacy Service has performed discharge medication reconciliation and counseling for this patient. 1. CEPHALEXIN 500MG PO Q12 X 3 DAYS 2. NAPROXEN 500MG PO BID PRN PAIN 3. PERCOCET 5/325MG PO Q4H PRN PAIN The patient's discharge medication list was reviewed for discrepancies and discrepancies were resolved. Home Medications cyanocobalamin (vitamin B-12) 1,000 mcg/mL injection solution 1,000 mcg IM QMONTH 06/26/21 cephalexin 500 mg capsule 500 mg PO Q12 post-operative 3 days #6 CAPSULES 10/17/21 naproxen 500 mg tablet 500 mg PO BID PRN PRN Pain #30 tabs 10/17/21 oxycodone-acetaminophen 5 mg-325 mg tablet (Percocet) 1 tab PO Q4H PRN pain 7 days #30 tabs 10/17/21 The patient was counseled on the following discharge medications and changes in medications for homegoing were reviewed. The Reason for Use, instructions for use, and potential side effects were reviewed for all new medications. The patient's questions regarding all of their medications were answered. The patient was able to verbally demonstrate an understanding of their discharge medications.
== END 2021-10-18 11:07 | disposition home or self-care (01) ==
LOC: MS3 10-18 07:26 → SDC 10-18 09:45 → MS3 10-18 09:45
PROVIDERS: Anesthesiology; Admitting Provider Obstetrics & Gynecology; PCP Internal Medicine; Referring Provider Obstetrics & Gynecology; Visit Provider Obstetrics & Gynecology
PROC: 0UT90ZZ Resection of Uterus, Open Approach (ICD-10-PCS; CPT S2900; principal; 2021-10-17 07:10)
DX: D25.1 Intramural leiomyoma of uterus (principal); Z68.41 Body mass index [BMI] 40.0-44.9, adult; N93.9 Abnormal uterine and vaginal bleeding, unspecified; N39.46 Mixed incontinence; N94.10 Unspecified dyspareunia; E66.9 Obesity, unspecified; L65.9 Nonscarring hair loss, unspecified; M99.02 Segmental and somatic dysfunction of thoracic region; M19.90 Unspecified osteoarthritis, unspecified site; Z98.84 Bariatric surgery status
CPT/HCPCS: 57288; S2900; 58571; 00840; 36415; 81025; 82962; 83735; 85027; 85610; 85730; 86850; 86900; 86901; 88307; 93005; 94762; 96374; 99218; 99251; J7120; A4216; C1758; G0378; G0463; J2405; J3475

== ENCOUNTER → 2021-12-19 | Outpatient (CLI) | payer OTHER, SELFPAY ==
[2021-12-19 17:24] LABS: Vitamin B12 630 pg/mL (211-911); Vitamin D,25 Hydroxy 24.3 ng/mL
[2021-12-19 17:29] LABS: Thyroid Stim Hormone (TSH) 2.45 uIU/mL (0.358-3.74)
== END | disposition home or self-care (01) ==
LOC: BIMLAB 16:12
PROVIDERS: PCP Internal Medicine; Referring Provider Physician Assistant; Visit Provider Physician Assistant
DX: E56.9 Vitamin deficiency, unspecified (principal); Z13.29 Encounter for screening for other suspected endocrine disorder
CPT/HCPCS: 36415; 82306; 82607; 84443

== ENCOUNTER 2022-01-22 16:47 | Outpatient (CLI) | payer OTHER, SELFPAY | END 2022-01-22 23:59 | disposition home or self-care (01) | LOC: LABSPEC 16:48 | PROVIDERS: PCP Internal Medicine; Visit Provider Nurse Practitioner Women's Health | DX: N89.8 Other specified noninflammatory disorders of vagina (principal); R35.0 Frequency of micturition | CPT/HCPCS: 87070; 87077; 87086; 87088; 87186; 87205 ==

== ENCOUNTER → 2022-07-18 | Outpatient (CLI) | payer OTHER, SELFPAY ==
--- NOTE | 2022-07-18 13:56 | EKG12_ITS ---
Test Reason : HTN Blood Pressure : / mmHG Vent. Rate : 059 BPM Atrial Rate : 059 BPM P-R Int : 168 ms QRS Dur : 092 ms QT Int : 426 ms P-R-T Axes : 027 -02 026 degrees QTc Int : 421 ms Sinus bradycardia Otherwise normal ECG Confirmed by MARKOS VICTOR, BRIAN ([id number]), scientific publications editor DANYA ONTIVEROS ([id number]) on 07/21/2022 11:24:46 AM Referred By: Mynor Garcia Confirmed By:BRIAN BURROWS MD
== END | disposition home or self-care (01) ==
LOC: PSN 13:56
PROVIDERS: PCP Internal Medicine; Referring Provider Internal Medicine; Visit Provider Internal Medicine
DX: I10 Essential (primary) hypertension (principal)
CPT/HCPCS: 93005

== ENCOUNTER → 2022-07-24 | Outpatient (CLI) | payer OTHER, SELFPAY ==
[2022-07-24 07:58] LABS: Cholesterol 183 mg/dL (200); High Density Lipoprotein 49 mg/dL; Triglycerides 80 mg/dL; Very Low Density Lipoprotein 16 mg/dL (5-40)
== END | disposition home or self-care (01) ==
PROVIDERS: PCP Internal Medicine; Referring Provider Internal Medicine; Visit Provider Internal Medicine
DX: E78.5 Hyperlipidemia, unspecified (principal)
CPT/HCPCS: 36415; 80061

== ENCOUNTER → 2022-08-22 | Outpatient (CLI) | payer OTHER, SELFPAY ==
--- NOTE | 2022-08-22 13:42 | BI_ITS ---
MAMMOGRAPHY - BILATERAL SCREENING REASON FOR EXAM: Female, 47 years old. Routine annual screening examination. PERTINENT HISTORY: Non-contributory. History of prior right needle breast biopsy. TECHNIQUE: Digital bilateral breast adriana (3D mammographic acquisition) in the CC and MLO projections. 2-D mediolateral oblique (MLO) and craniocaudad (CC) views of both breasts were obtained. CAD: Full Field Digital Mammography with Computer Added Detection was performed. COMPARISON: Comparison is made with prior study June 13, 2021. FINDINGS: Breast Composition: There are scattered areas of fibroglandular density. There are no dominant masses or suspicious calcifications. No other significant abnormalities are identified. There has been no significant change since the prior study. BI/SCRN MAMM (CAD)W/ADRIANA BILAT IMPRESSION: Stable bilateral screening mammogram. Yearly follow-up mammogram recommended. (A) ASSESSMENT CATEGORY: BIRADS Category 1: Negative. A letter regarding these results will be sent to the patient by the facility within 30 days. Approximately 10% of breast cancers are not detected by mammography. A normal mammogram should not delay biopsy of a clinically suspicious abnormality. [id number] Electronically Signed: Jose Mejía MD at 9:33 EDT ,
== END | disposition home or self-care (01) ==
LOC: OPBI 13:41
PROVIDERS: PCP Internal Medicine; Referring Provider Nurse Practitioner Women's Health; Visit Provider Nurse Practitioner Women's Health
DX: Z12.31 Encounter for screening mammogram for malignant neoplasm of breast (principal)
CPT/HCPCS: 77063; 77067

== ENCOUNTER → 2022-08-27 | Outpatient (CLI) | payer OTHER, SELFPAY ==
--- NOTE | 2022-08-27 13:24 | CT_ITS ---
INDICATION: HTN, family history of early CAD. Limited chest OVER READ ONLY. EXAMINATION: CT CHEST WITHOUT CONTRAST - CT Chest W/O Contrast Injection TECHNIQUE: Helically acquired images were obtained of the chest. A radiation dose optimization technique was used for this scan. IV Contrast dosage and agent: None. COMPARISON: None. FINDINGS: LUNGS, PLEURA AND LARGE AIRWAYS: There is an 8.5 mm x 5.7 mm noncalcified nodule in the right lower lobe adjacent to the right hemidiaphragm as seen on axial image #48. No pleural effusion or thickening. No pneumothorax. THYROID: No thyroid lesions. HEART AND PERICARDIUM: Heart size is normal. No pericardial effusion. CORONARY ARTERIES: Coronary artery calcification is not seen. VESSELS: Mild calcific plaque at the level of the aortic arch. MEDIASTINUM AND FELISA: Small mediastinal lymph nodes. Esophagus is unremarkable. No hiatal hernia. UPPER ABDOMEN: Subtotal gastrectomy. BONES: No suspicious lytic or blastic abnormality. CT/Limited Chest CT Cardiac Only IMPRESSION: No coronary artery calcification is seen. 8.5 mm x 5.7 mm noncalcified nodule in the right lower lobe adjacent to the right hemidiaphragm as seen on axial image #48. A follow-up CT scan is recommended in 6 months. Electronically Signed: Jose Mejía MD at 15:20 EDT ,
--- NOTE | 2022-08-27 17:54 | CA.SCORE ---
Calcium Scoring Date of Study:: 08/27/22 Indications Indications: Hypertension and family history of coronary artery disease Coronary Calcium Scoring: High-resolution Computed Tomographic imaging of the chest was performed on [08/27/2022], with particular attention paid to the coronary arteries. Images from the examination were analyzed for the presence and extent of coronary artery calcification , using coronary calcium quantification software. The patient tolerated the procedure well and there were no complications. The results of the coronary calcification analysis are provided below. Findings Coronary Artery Left Main (LM): 0 Left Anterior Descending (LAD): 0 Left Circumflex (LCX): 0 Right Coronary Artery (RCA): 0 Total Agatston Score: 0 Percentile Rankinth percentile Calcium Scoring Interpretation: Different methods to categorize the overall amount of coronary plaque. Overall amount CAC SIS Visual of coronary plaque P1 Mild -100 <2 1-2 vessels with mild amount of plaque P2 Moderate 101-300 3-4 1-2 vessels with moderate amount, 3 vessels with mild amount of plaque P3 Severe 301-999 5-7 3 vessels with moderate amount, 1 vessel with severe amount of plaque P4 Extensive >1000 >8 2-3 vessels with severe amount of plaque Conclusion: No significant atherosclerotic plaquing noted
== END | disposition home or self-care (01) ==
LOC: CT 13:15
PROVIDERS: PCP Internal Medicine; Referring Provider Internal Medicine; Visit Provider Internal Medicine
DX: I10 Essential (primary) hypertension (principal); E66.9 Obesity, unspecified; E78.5 Hyperlipidemia, unspecified; Z82.49 Family history of ischemic heart disease and other diseases of the circulatory system
CPT/HCPCS: 75571; 76380

== ENCOUNTER → 2022-09-23 | Outpatient (CLI) | payer OTHER, SELFPAY | END | disposition home or self-care (01) | LOC: LABSPEC 16:48 | PROVIDERS: PCP Internal Medicine; Visit Provider Physician Assistant | DX: R30.0 Dysuria (principal) | CPT/HCPCS: 87086; 87088; 87186 ==

== ENCOUNTER 2022-12-10 04:34 | Emergency (ER) | payer OTHER, SELFPAY ==
[2022-12-10 04:35] VITALS: BP 130/72; PULSE 76; RESP 18; TEMP 35.9; O2SAT 96; BMI 43.9
--- NOTE | 2022-12-10 04:42 | CT_ITS ---
EXAM: CT HEAD WITHOUT INTRAVENOUS CONTRAST CLINICAL INDICATION: headache TECHNIQUE: Multiple axial images were obtained of the head without intravenous contrast. This CT exam was performed using one or more of the following dose reduction techniques: automated exposure control, adjustment of the mA and/or kV according to patient size, and/or use of iterative reconstruction technique. RADIATION DOSE: Total DLP: 846.73 mGy-cm. COMPARISON: No relevant prior studies available. FINDINGS: BRAIN AND EXTRA-AXIAL SPACES: Unremarkable. No intra- or extra-axial hemorrhage. No evidence of acute infarct. No intracranial mass or mass effect. There is preservation of the landis/white matter interface. Posterior fossa structures are unremarkable. Ventricles are appropriate for age. No hydrocephalus. Basal cisterns are patent. BONES/JOINTS: The temporomandibular joints are symmetric. No discrete lytic or blastic abnormalities. SINUSES: Small incidental retention cyst at the base of the left maxillary antrum. Tiny incidental retention cyst along the floor of the right sphenoid sinus. No paranasal sinus air-fluid levels. MASTOID AIR CELLS: Unremarkable. Clear. ORBITS: Visualized globes, extraocular muscles, optic nerves and retrobulbar fat appear unremarkable. CT/Brain/Head without Contrast IMPRESSION: No acute findings in the head/brain. Electronically Signed: Cruz España MD at 5:25 EDT ,
--- NOTE | 2022-12-10 04:44 | EX.ED.VIS.HA ---
HPI History of Present Illness Chief Complaint: Headache Narrative Narrative: 47-year-old female presents with headache that she has had for the last 2 days. She endorses photophobia and phonophobia as well. It is more of a frontal headache and radiates backwards along her scalp. She is nauseated but has not vomited. She denies any history of diagnosis of migraine headaches, but states that she gets headaches approximately twice a week, but not like this. It was not a thunderclap headache however and it seems to be getting worse over the last 2 days. It started 2 days ago in the evening. She denies any fevers or chills. No other symptoms. No exacerbating or alleviating factors. She has not taken any analgesics, however she is allergic to ibuprofen. She was coming into work, and wanted to be registered for her ongoing headache. [facility] Medical History Abnormal uterine bleeding Anemia Arthritis Back pain Chest pain Chronic back pain Chronic fatigue CPAP (continuous positive airway pressure) dependence Family history of early CAD Generalized anxiety disorder Hair loss disorder History of edema History of pain when walking Hyperlipidemia Hypertension Leg cramps Lung nodule seen on imaging study Migraine headache Neck pain Non-smoker Obesity CHRISTIANA (obstructive sleep apnea) Seizures Sleep apnea Tiredness UTI (urinary tract infection) Varicose veins of both lower extremities Vitamin B12 deficiency Weight loss Home Medications needle (disp) 25 gauge 25 gauge x 1 #100 ea 12/19/21 [Rx Last Taken Unknown] fluoxetine 20 mg tablet 20 mg PO BID #180 tabs 09/03/22 [Rx Last Taken Unknown] Allergy/AdvReac Type Severity Reaction Status Date / Time ibuprofen [From Motrin] Allergy Shortness Verified 12/10/22 04:36 of breath Family History Father Diabetes Heart disease Lung cancer smoker- agent orange Surgical History History of History of carpal tunnel surgery of left wrist History of endometrial ablation History of gastric stapling History of tonsillectomy History of tubal ligation Hx laparoscopic cholecystectomy Hx of bilateral cataract extraction Status post hysterectomy (~10/17/21) Social History Smoking Status: Never smoker alcohol intake: never substance use type: does not use caffeine: Yes what type of physical activity do you participate in: none seatbelt use: always do you feel safe at home: Yes additional social history: 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 HEENT: No sore throat. No neck pain. No loss of vision. No rhinorrhea. Cardiovascular: No chest pain. No palpitations. No pedal edema. Respiratory: No cough, no shortness of breath. Abdominal: No abdominal pain. Positive nausea. No vomiting. Genitourinary: No dysuria. No hematuria. Musculoskeletal: No myalgias. No arthralgias. Neurologic: Positive frontal headaches. No dizziness. No lightheadedness. Skin: No rash. No change in color. Psychiatric: No depression. No anxiety. EXAM Physical Exam Narrative Exam Narrative: Afebrile. Vital signs noted. HEENT: Normocephalic. Atraumatic. PERRL, EOMI. Neck soft and supple. No point tenderness or step off. Cardiovascular: Regular rate and rhythm. No murmurs, rubs, or gallops appreciated. Respiratory: No tachypnea. Lungs clear to auscultation bilaterally. Gastrointestinal: Abdomen soft, nontender, with normoactive bowel sounds. No rebound or guarding. Neurological: Awake. Alert. Oriented x3. Nonfocal, nonlateralizing. DTRs equal and symmetric. Skin: No rash. Normal color. No pallor. Musculoskeletal: No pedal edema. Full range of motion extremities. Const Vital Signs: 12/10/22 04:35 Temperature 96.7 F L Temperature Source Temporal Pulse Rate 76 Respiratory Rate 18 Blood Pressure 130/72 H Blood Pressure Mean 91 Pulse Ox 96 Oxygen Delivery Method Room Air MDM MDM MDM Narrative Medical decision making narrative: Feels she has more of a migrainous type headache. As she does not have a definitive diagnosis of this, however, I do feel CT imaging of the brain is indicated. She was bolused normal saline, and administered Compazine and Benadryl. She currently rates her headache around a [address] of the brain images were reviewed independently by myself and I see no evidence of acute hemorrhage or mass. I reviewed the radiology report which confirms my independent interpretation. I do not feel she requires a lumbar puncture currently. RN reported that the patient still had a throbbing headache. I chose to check her labs afterwards, in review of her laboratory work, she has normal white count of 6.8, hemoglobin stable 11.8, hematocrit 37.5, platelet count normal at 233. Electrolyte panel shows chloride slightly elevated at 111 which I think is nonspecific, BUN normal at 13 with creatinine normal at 0.62, no signs of dehydration. Glucose appropriately elevated at 91 with an anion gap low at 4. She had rated her pain a 4 out of 5 upon reassessment. She was given Decadron 10 mg intravenously, and states that her headache has gone down even further. At this point in time, I do feel she can be discharged safely home with follow-up to her primary care provider. She was told that she may need to start prophylactic medication for migraines, and she may also require referral to a neurologist in the future. I feel she can be discharged safely home. Return instructions were reviewed. Disposition is discharged home in stable condition. History & Record Review Discussion w/independent historian: Patient Additional record(s) reviewed:: Prior ED visit Lab Data Attestation: I reviewed the patient's lab results. Labs: Laboratory Results - last 24 hr 12/10/22 06:17 WBC 6.8 RBC 4.22 Hgb 11.8 L Hct 37.5 MCV 88.9 MCH 28.0 MCHC 31.5 L RDW Std Deviation 43.3 RDW Coeff of Aretha 13.3 Plt Count 233 MPV 9.8 Immature Gran % (Auto) 0.100 Neut % (Auto) 70.2 H Lymph % (Auto) 21.0 Ziebach % (Auto) 6.8 Eos % (Auto) 1.5 Baso % (Auto) 0.4 Absolute Neuts (auto) 4.8 Absolute Lymphs (auto) 1.43 Nucleated RBC % 0 Sodium 140 Potassium 3.8 Chloride 111 H Carbon Dioxide 25.0 Anion Gap 4 L BUN 13 Creatinine 0.62 Estim Creat Clear Calc 98.95 Est GFR (MDRD) Af Amer 134 Est GFR (MDRD) Non-Af 110 BUN/Creatinine Ratio 21.0 H Glucose 91 Calcium 8.9 Radiography Diagnostic Testing: Clinical Impression(s) from Imaging Studies Brain CT 12/10/22 04:42 IMPRESSION: No acute findings in the head/brain. Electronically Signed: Cruz España MD at 5:25 EDT , Discharge Plan Triage Chief Complaint: Headache ED Provider: Jp Barnard Dx/Rx/DC Orders Clinical Impression: Headache, Migraine Instructions: ED Headache Unspecified, ED, Migraine (Classical) Prescriptions: No Action (DME) needle (disp) 25 gauge 25 gauge x 1 needle See Rx Instructions .Route Qty: 100 1RF Rx Instructions: As directed fluoxetine 20 mg tablet 20 mg PO BID Qty: 180 1RF Rx Instructions: administer in the morning and at noon/midday Stand Alone Forms: ED Work / School Excuse Primary Care Provider: Mynor Garcia Referrals: Mynor Garcai MD [Primary Care Provider] - 3-5 Days if not improving Disposition Disposition: Home, Self Care
[2022-12-10] MEDS: 0.9% Normal Saline (1000mL) 1,000 ML 999 ML IV (04:52)
[2022-12-10] MEDS: proCHLORPERazine 10 MG/2 ML Vial IV (04:52)
[2022-12-10] MEDS: DiphenhydrAMINE 50 MG/ML Syringe 25 MG IV (04:52)
[2022-12-10] MEDS: dexAMETHasone 10 MG/ML Vial IV (06:11)
[2022-12-10 06:23] LABS: Absolute Lymphocyte Count 1.43 X10^3/uL (0.83-4.51); Absolute Neutrophil Count 4.8 X10^3/uL (2.0-7.7); Basophil# 0.03 X10^3/uL; Basophil% 0.4 % (0-1); Eosinophils% 1.5 % (0-5); Hematocrit 37.5 % (37-47); Hemoglobin 11.8 g/dL (12.0-15.0); Lymphocyte # 1.43 X10^3/ul (0.83-4.51); Mean Corp Hgb Conc 31.5 g/dL (32-36); Mean Corpuscular Volume 88.9 fL (81-99); Mean Platelet Vol. 9.8 fl (6.2-12.0); Monocyte# 0.46 X10^3/uL; Monocyte% 6.8 % (0-10); NRBC Flagged by Analyzer 0 % (0-5); Neutrophil # 4.77 X10^3/uL (2.7-7.7); Neutrophil % 70.2 % (47-70); Platelet Count 233 K/mm3 (150-450); RBC Distribution Width CV 13.3 % (11.6-14.6); RBC Distribution Width SD 43.3 fl (35.1-43.9); Red Blood Count 4.22 M/mm3 (4.2-5.4); White Blood Count 6.8 K/mm3 (4.4-11.0)
[2022-12-10 06:36] LABS: Anion Gap 4 (5-15); BUN 13 mg/dL (7-18); Calcium,Total 8.9 mg/dL (8.5-10.1); Chloride 111 mmol/L (98-107); Creatinine, Serum 0.62 mg/dL (0.55-1.02); EST Glomerular Filtration Rate 110 mL/min (>60); Est Glom Filt Rate - Afr Amer 134 mL/min (>60); Estimated Creatinine Clearance 98.95 ml/min; Glucose 91 mg/dL (74-106); Potassium 3.8 mmol/L (3.5-5.1); Sodium Level 140 mmol/L (136-145)
[2022-12-10 07:17] VITALS: RESP 16
== END 2022-12-10 07:17 | disposition home or self-care (01) ==
PROVIDERS: Emergency Provider Emergency Medicine; PCP Internal Medicine; Visit Provider Emergency Medicine
DX: G43.909 Migraine, unspecified, not intractable, without status migrainosus (principal); I10 Essential (primary) hypertension; E78.5 Hyperlipidemia, unspecified; Z99.89 Dependence on other enabling machines and devices; F41.1 Generalized anxiety disorder; Z79.899 Other long term (current) drug therapy; Z90.49 Acquired absence of other specified parts of digestive tract; Z98.41 Cataract extraction status, right eye; Z98.42 Cataract extraction status, left eye; Z90.710 Acquired absence of both cervix and uterus
CPT/HCPCS: 70450; 80048; 85025; 96361; 96374; 96375; 99283; J7030; A4216

== ENCOUNTER → 2022-12-15 | Outpatient (CLI) | payer OTHER, SELFPAY | END | disposition home or self-care (01) | LOC: LABSPEC 16:50 | PROVIDERS: PCP Internal Medicine; Referring Provider Obstetrics & Gynecology; Visit Provider Obstetrics & Gynecology | DX: N89.8 Other specified noninflammatory disorders of vagina (principal) | CPT/HCPCS: 87070; 87205 ==

== ENCOUNTER → 2023-03-04 | Outpatient (CLI) | payer OTHER, SELFPAY ==
--- NOTE | 2023-03-04 07:30 | CT_ITS ---
HISTORY: Follow-up lung nodule. TECHNIQUE: Helically acquired images were obtained of the chest without contrast. A radiation dose optimization technique was used for this scan. 864 images. COMPARISON: 08/27/2022. FINDINGS: LARGE AIRWAYS: Patent. LUNGS: Stable 4 mm nodule or scar of the right minor fissure. Stable 8 mm right middle lobe nodule with 2 mm central calcification adjacent to the diaphragm. 3 mm noncalcified nodule in the right lower lobe just posterior to the diaphragm, either new or not seen on prior due to slice selection artifact. PLEURA: No pneumothorax or significant pleural effusion. HEART/PERICARDIUM: Heart within normal limits in size. No significant coronary artery calcification. No pericardial effusion. VESSELS: Thoracic aorta nondilated. MEDIASTINUM/FELISA: Several small calcified and noncalcified mediastinal lymph nodes. UPPER ABDOMEN: Gastric postoperative change. BONES: Intact. CT/Chest without Contrast IMPRESSION: No significant interval change in size of 8 mm right middle lobe nodule. New 3 mm right lower lobe pulmonary nodule. Recommend 12 month follow-up. Electronically Signed: Lo Marin MD at 10:07 EST ,
--- OUTSIDE RECORDS SUMMARY | 2023-03-04 07:32 | XMS RPT_ITS | CCD ---
Author Name Unknown Address [address] [place] [address] Organization [facility] Care Team Providers Care Weighmaster Name Role Phone THERON DAVISA Admitting Unavailable SUSAN, ISABEL Attending Unavailable SUSAN, ISABEL Primary Care Unavailable VACCARIELLO, ANGEL Consulting Unavailable PROVIDER, UNKNOWN Consulting Unavailable PROVIDER, UNKNOWN Consulting Unavailable PROVIDER, UNKNOWN Consulting Unavailable SUSAN, ISABEL Admitting Unavailable SUSAN, ISABEL Attending Unavailable SUSAN, ISABEL Primary Care Unavailable VACCARIELLO, ANGEL Consulting Unavailable PROVIDER, UNKNOWN Consulting Unavailable PROVIDER, UNKNOWN Consulting Unavailable PROVIDER, UNKNOWN Consulting Unavailable SUSAN, ISABEL Admitting Unavailable SUSAN, ISABEL Attending Unavailable SUSAN, ISABEL Primary Care Unavailable VACCARIELLO, ANGEL Consulting Unavailable PROVIDER, UNKNOWN Consulting Unavailable PROVIDER, UNKNOWN Consulting Unavailable PROVIDER, UNKNOWN Consulting Unavailable JAY, LEVI DO Admitting Unavailable JAY, LEVI DO Primary Care Unavailable JAY, LEVI DO Attending Unavailable SUSAN, ISABEL Consulting Unavailable SUSAN, ISABEL Referring Unavailable PROVIDER, UNKNOWN Consulting Unavailable ROSS, SCOT T Admitting Unavailable VACCARIELLO, ANGEL Consulting Unavailable ROSS, SCOT T Primary Care Unavailable ROSS, SCOT T Attending Unavailable PROVIDER, UNKNOWN Consulting Unavailable PROVIDER, UNKNOWN Consulting Unavailable PROVIDER, UNKNOWN Consulting Unavailable ROSS, SCOT T Admitting Unavailable ROSS, SCOT T Primary Care Unavailable ROSS, SCOT T Attending Unavailable VACCARIELLO, ANGEL Consulting Unavailable PROVIDER, UNKNOWN Consulting Unavailable PROVIDER, UNKNOWN Consulting Unavailable PROVIDER, UNKNOWN Consulting Unavailable Allergies Allergy Classification Reported Allergen(s) Allergy Type Date of Onset Reaction(s) Facility (2 sources) Ibuprofen Drug Allergy [facility] Repository Problems Problem Classification Problem Date Documented Da te Episodic/Chronic Abdominal pain (3 sources) Right upper quadrant pain; Translations: [Right upper quadrant pain] Onset: 02-22-2020 Episodic Biliary tract disease (1 source) Calculus of bile duct without cholangitis or cholecystitis without obstruction; Translations: [Calculus of bile duct without cholangitis or cholecystitis without obstruction] Onset: 03-15-2020 Episodic Nausea and vomiting (1 source) Nausea with vomiting, unspecified; Translations: [Nausea with vomiting, unspecified] Onset: 02-22-2020 Episodic Other gastrointestinal disorders (1 source) Bariatric surgery status; Translations: [Bariatric surgery status] Onset: 12-23-2019 Episodic Other nervous system disorders (3 sources) Other chronic pain; Translations: [Other chronic pain] Onset: 11-25-2019 Chronic Other nutritional; endocrine; and metabolic disorders (1 source) Morbid (severe) obesity due to excess calories; Translations: [Morbid (severe) obesity due to excess calories] Onset: 12-23-2019 Chronic Other screening for suspected conditions (not mental disorders or infectious disease) (3 sources) Encounter for screening for diseases of the blood and blood-forming organs and certain disorders involving the immune mechanism; Translations: [Encounter for screening for lipoid disorders] Onset: 12-23-2019 Episodic Spondylosis; intervertebral disc disorders; other back problems (1 source) Spondylosis, unspecified; Translations: [Spondylosis, unspecified] Onset: 11-25-2019 Chronic Spondylosis; intervertebral disc disorders; other back problems (1 source) Pain in thoracic spine; Translations: [Pain in thoracic spine] Onset: 11-25-2019 Episodic Results Test Name Value Interpretation Reference Range Facil ity Encounters Encounter Date Encounter Type Care Provider Facility Start: 03-21-2020 End: 03-21-2020 Patient encounter procedure [facility] Start: 03-15-2020 End: 03-15-2020 Patient encounter procedure [facility] Start: 02-22-2020 End: 02-22-2020 Emergency department patient visit LEVI DEGROOT [facility] Start: 12-26-2019 Encounter for gyneco logical examination (general) (routine) without abnormal findings [facility] Start: 12-26-2019 End: 12-26-2019 Patient encounter procedure [facility] Start: 12-23-2019 Encounter for genera l adult medical examination without abnormal findings [facility] Start: 12-23-2019 End: 12-23-2019 Patient encounter procedure ISABEL DAVIS [facility] Start: 11-25-2019 End: 11-25-2019 Patient encounter procedure ISABEL DAVIS [facility] Encounter for genera l adult medical examination without abnormal findings ISABEL DAVIS [facility] Procedures Date Procedure Procedure Detail Performing Clinician Start: 02-22-2020 Urinalysis LEVI KI NCADE Payers Date Payer Category Payer Unknown [id number] [id number] 1975 Unknown [id number] [id number] [id number] 1975 Unknown [id number] 2.16.84 [id number] 1975 Unknown [id number] 2.16.84 [id number] 1975 Unknown [id number] 2.16.84 [id number] 1975 Unknown [id number] 2.16.84 [id number] Unknown [id number] Clinical Note 09-21-2020 Note Date & Type Note Facility 09-21-2020 Note Patient Outreach (IN [facility]) FABIENNE FRANKS ([id number]) 1975 F Date Time Provider Department 09/21/20 CHRISTOPHER RUIZ During your visit today, we recorded the following information about you: Allergies As of Date: 09/21/2020 Noted Allergy Reaction IBUPROFEN 06/14/2005 12 - Shortness of Breath Comments: but able to take Aleve Date Reviewed: 07/18/2019 Reviewed by: Mindy Tamayo Ma - Fully Assessed Visit Diagnosis:Encounter for screening mammogram for breast cancer [Z12.31] Order(s):[facility] SCREENING [[id number]] Order #: [id number] FUTURE Prescriptions as of 09/24/2020 - albuterol HFA (PROAIR HFA) 90 mcg/actuation inhaler Inhale 2 Puffs as instructed every 4 hours as needed for Wheezing/Shortness of Breath. - biotin 5,000 mcg ODT DAILY - calcium citrate (CALCITRATE) 200 mg (950 mg) tab TWICE A DAY - Cholecalciferol, Vitamin D3, 2,000 unit cap TWICE A DAY - cyanocobalamin (VITAMIN B-12) 500 mcg tab tab(s) WE - ibuprofen (MOTRIN) 600 mg tablet - MULTIVITAMIN ORAL DAILY - ferrous sulfate 325 mg (65 mg iron) tablet Take 1 tablet by mouth twice daily. Problem List As Of Date 09/21/2020 Noted Resolved Supervision of other normal [Z34.80] 06/14/2005 09/05/2011 Edema or excessive weight gain, antepartum [IMO*06/14/2005 09/05/2011 Other benign neoplasm of connective and other s*09/16/2011 Unspecified hereditary and idiopathic periphera*09/16/2011 Encounter Status:Closed by MIREILLE TAO on 09/24/20 [facility] Summary Purpose Family History No Family History Records FoundNo Family History Records FoundNo Family History Records FoundNo Family History Records Found Advance Directives No Advanced Directives Records FoundNo Advanced Directives Records FoundNo Advanced Directives Records FoundNo Advanced Directives Records Found Additional Source Comments INFORMATION SOURCE (unrecogn ized section and content) DATE CREATED AUTHOR AUTHOR'S ORGANIZ ATION 12/28/2019 [facility] DATE CREATED AUTHOR AUTHOR'S ORGANIZ ATION 03/26/2020 [facility] DATE CREATED AUTHOR AUTHOR'S ORGANIZ ATION 09/24/2020 [facility] FOR RECORDS PERTAINING TO PATIENTS WHO ARE OR HAVE BEEN ENROLLED IN A CHEMICAL DEPENDENCY/SUBSTANCEABUSE PROGRAM, SOME INFORMATION MAY BE OMITTED. This clinical summary was aggregated from multiple sources. Caution should be exercised in using it in the provision of clinical care. This summary normalizes information from multiple sources, and as a consequence, information in this document may materially change the coding, format and clinical context of patient data. In addition, data may be omitted in some cases. CLINICAL DECISIONS SHOULD BE BASED ON THE PRIMARY CLINICAL RECORDS. [facility] [email or web address] [facility]. provides no warranty or guarantee of the accuracy or completeness of information in this document.
== END | disposition home or self-care (01) ==
LOC: CT 07:29
PROVIDERS: PCP Internal Medicine; Visit Provider Internal Medicine
DX: R91.1 Solitary pulmonary nodule (principal)
CPT/HCPCS: 71250

== ENCOUNTER → 2023-03-27 | Outpatient (CLI) | payer OTHER, SELFPAY ==
--- NOTE | 2023-03-27 10:55 | VDLE_ITS ---
Reason For Study: Pain BLE RIGHT LEFT GSV is normal. GSV is normal. CFV is compressible, spontaneous, phasic, CFV is compressible, spontaneous, phasic, competent and demonstrates normal competent, and demonstrates normal augmentation. augmentation. FV is compressible, spontaneous, phasic, FV is compressible, spontaneous, phasic, competent and demonstrates normal competent and demonstrates normal augmentation. augmentation. POP V is compressible, spontaneous, phasic, POP V is compressible, spontaneous, phasic, competent and demonstrates normal competent and demonstrates normal augmentation. augmentation. T/P Trunk is compressible. T/P Trunk is compressible. PTV is compressible. PTV is compressible. RT PerV is compressible. LT PerV is compressible. SFJ is competent and measures 0.66cm x 0.67 SFJ is competent and measures 0.60cm x 0.56 cm. cm. GSV proximal thigh measures 0.57cm x 0.56 cm. GSV proximal thigh measures 0.48cm x 0.48 cm. GSV at knee measures 0.40cm x 0.41 cm. GSV at knee measures 0.40cm x 0.42 cm. GSV is competent throughout. GSV is competent throughout. SSV proximal calf is competent and measures SSV proximal calf is competent and measures 0.28cm x 0.29 cm. 0.40cm x 0.42 cm. Compressible varicose vein Rt Thigh. VL/Venous Duplex US - Christiano Extrem Interpretation Summary Deep veins of the bilateral lower extremities are patent and compressible segme ntally. There is no evidence of bilateral lower extremity deep vein thrombosis. The bilateral great saphenous veins appear patent and compressible segmentally. Negative for reflux bilateral Ordering Physician: Elizabeth Melendez Referring Physician: Mynor Garcia Performed By: Trisha Eubanks, RDCS, RVT
== END | disposition home or self-care (01) ==
LOC: CVS 10:54
PROVIDERS: PCP Internal Medicine; Referring Provider Physician Assistant; Visit Provider Physician Assistant
DX: I83.93 Asymptomatic varicose veins of bilateral lower extremities (principal)
CPT/HCPCS: 93970

== ENCOUNTER → 2023-04-14 | Outpatient (CLI) | payer OTHER, SELFPAY ==
--- NOTE | 2023-04-14 13:54 | CT_ITS ---
STUDY: CT ABDOMEN AND PELVIS WITH CONTRAST REASON FOR EXAM: Female, 47 years old. Pelvic congestion. Bilateral lower extremity pain and swelling. RADIATION DOSAGE (If Supplied By Facility): CTDIvol = ( 20.26 ) mGy, DLP = ( 1268.85 ) mGycm TECHNIQUE: Transaxial images were obtained from the dome of the diaphragm to the symphysis pubis without oral contrast. IV 100mL Isovue-370 was administered. Sagittal and coronal images were reconstructed. Individualized dose optimization techniques were used for this CT. COMPARISON: None. FINDINGS: Stable 1 cm nodular density in the right lower lobe adjacent to the right hemidiaphragm. The visualized portions of the heart are within normal limits. There is decreased attenuation of the liver consistent with steatosis. There are surgical clips in the gallbladder fossa consistent with a prior cholecystectomy. Normal spleen. Normal pancreas. Normal bilateral adrenal glands. Normal right kidney. Normal left kidney. The patient is status post gastric sleeve surgery with the decreased size of the stomach. Surgical sutures are seen along the greater curvature of the stomach. Normal small intestine. There are scattered colonic diverticula consistent with diverticulosis. The appendix is visualized and appears normal. Normal abdominal aorta. Normal inferior vena cava. Normal retroperitoneum. Normal urinary bladder. There is a 1.6 cm dominant follicle in the right ovary. The patient is status post hysterectomy. Small benign-appearing lymph nodes in the inguinal regions bilaterally. Normal osseous structures. CT/Abdomen/Pelvis W IV Cont ONLY IMPRESSION: Fatty infiltration of the liver. Status post gastric sleeve surgical procedure. 1.6 cm dominant follicle in the right ovary. Stable 1 cm nodular density in the right lower lobe adjacent to the right hemidiaphragm. Electronically Signed: Jose Mejía MD at 9:24 EST ,
--- OUTSIDE RECORDS SUMMARY | 2023-04-14 18:36 | XMS RPT_ITS | CCD ---
Author Name Unknown Address [address] [place] [address] Organization [facility] Care Team Providers Care Associate Field Service Engineer Name Role Phone THERON DAVISA Admitting Unavailable [...] Reaction(s) Facility (2 sources) Ibuprofen Drug Allergy [facility] Repository Problems Problem Classification Problem Date Documented [...] Start: 03-21-2020 End: 03-21-2020 Patient encounter procedure [facility] Start: 03-15-2020 End: 03-15-2020 Patient encounter procedure [facility] Start: 02-22-2020 End: 02-22-2020 Emergency department patient visit LEVI DEGROOT [facility] Start: 12-26-2019 Encounter for gyneco logical examination (general) (routine) without abnormal findings [facility] Start: 12-26-2019 End: 12-26-2019 Patient encounter procedure [facility] Start: 12-23-2019 Encounter for genera l adult medical examination without abnormal findings [facility] Start: 12-23-2019 End: 12-23-2019 Patient encounter procedure ISABEL DAVIS [facility] Start: 11-25-2019 End: 11-25-2019 Patient encounter procedure ISABEL DAVIS [facility] Encounter for genera l adult medical examination without abnormal findings ISABEL DAVIS [facility] Procedures Date Procedure Procedure Detail Performing Clinician Start: 02-22-2020 Urinalysis LEVI KI NCADE Payers Date Payer Category Payer Unknown [id number] 2.16.84 [id number] 1975 Unknown [id number] 2.16.84 [id number] 1975 Unknown [id number] 2.16.84 [id number] 1975 Unknown [id number] 2.16.84 [id number] 1975 Unknown [id number] 2.16.84 [id number] 1975 Unknown [id number] 2.16.84 [id number] Unknown [id number] Clinical Note 09-21-2020 Note Date & Type Note Facility 09-21-2020 Note Patient Outreach (IN [facility]) FABIENNE FRANKS ([id number]) 1975 F Date Time Provider Department 09/21/20 CHRISTOPHER RUIZ During your visit today, we recorded the following information about you: Allergies As of Date: 09/21/2020 Noted Allergy Reaction IBUPROFEN 06/14/2005 12 - Shortness of Breath Comments: but able to take Aleve Date Reviewed: 07/18/2019 Reviewed by: Mindy Tamayo Ma - Fully Assessed Visit Diagnosis:Encounter for screening mammogram for breast cancer [Z12.31] Order(s):[facility] SCREEN[facility] [[id number]] Order #: [id number] FUTURE Prescriptions as of 09/24/2020 - albuterol [...] Status:Closed by MIREILLE TAO on 09/24/20 [facility] Summary Purpose Family History No Family History Records FoundNo Family History Records FoundNo Family History Records FoundNo Family History Records Found Advance Directives No Advanced Directives Records FoundNo Advanced Directives Records FoundNo Advanced Directives Records FoundNo Advanced Directives Records Found Additional Source Comments INFORMATION SOURCE (unrecogn ized section and content) DATE CREATED AUTHOR AUTHOR'S ORGANIZ ATION 12/28/2019 [facility] DATE CREATED AUTHOR AUTHOR'S ORGANIZ ATION 03/26/2020 [facility] DATE CREATED AUTHOR AUTHOR'S ORGANIZ ATION 09/24/2020 [facility] FOR RECORDS PERTAINING TO PATIENTS WHO [...] BE BASED ON THE PRIMARY CLINICAL RECORDS. [facility] [employer] [facility]. provides no warranty or guarantee of the accuracy or completeness of information in this document.
== END | disposition home or self-care (01) ==
LOC: CT 13:53
PROVIDERS: PCP Internal Medicine; Referring Provider Surgery Trauma Surgery; Visit Provider Surgery Trauma Surgery
DX: N94.89 Other specified conditions associated with female genital organs and menstrual cycle (principal)
CPT/HCPCS: 74177; Q9967

== ENCOUNTER 2023-05-13 08:23 | Day surgery (SDC) | payer OTHER, SELFPAY ==
[2023-05-12 07:33] VITALS: BMI 44.4
--- OUTSIDE RECORDS SUMMARY | 2023-05-13 08:49 | XMS RPT_ITS | CCD ---
Author Name Unknown Address [address] [place] [address] Organization [facility] Care Team Providers Care Housing Officer Name Role Phone THERON DAVISA Admitting Unavailable [...] Reaction(s) Facility (2 sources) Ibuprofen Drug Allergy [facility] Repository Problems Problem Classification Problem Date [...] Start: 03-21-2020 End: 03-21-2020 Patient encounter procedure [facility] Start: 03-15-2020 End: 03-15-2020 Patient encounter procedure [facility] Start: 02-22-2020 End: 02-22-2020 Emergency department patient visit LEVI DEGROOT [facility] Start: 12-26-2019 Encounter for gyneco logical examination (general) (routine) without abnormal findings [facility] Start: 12-26-2019 End: 12-26-2019 Patient encounter procedure [facility] Start: 12-23-2019 Encounter for genera l adult medical examination without abnormal findings [facility] Start: 12-23-2019 End: 12-23-2019 Patient encounter procedure ISABEL DAVIS [facility] Start: 11-25-2019 End: 11-25-2019 Patient encounter procedure ISABEL DAVIS [facility] Encounter for genera l adult medical examination without abnormal findings ISABEL DAVIS [facility] Procedures Date Procedure Procedure Detail Performing Clinician Start: 02-22-2020 Urinalysis LEVI KI NCADE Payers Date Payer Category Payer Unknown [id number] [id number] [id number] 1975 Unknown [id number] [id number] [id number] 1975 Unknown [id number] [id number] [id number] 1975 Unknown [id number] 2.16.84 [id number] 1975 Unknown [id number] 2.16.84 [id number] 1975 Unknown [id number] [id number] [id number] Unknown [id number] Clinical Note 09-21-2020 Note Date & Type Note Facility 09-21-2020 Note Patient Outreach (IN [facility]) FABIENNE FRANKS ([id number]) 1975 F Date Time Provider Department 09/21/20 CHRISTOPHER RUIZ During your visit today, we recorded the following information about you: Allergies As of Date: 09/21/2020 Noted Allergy Reaction IBUPROFEN 06/14/2005 12 - Shortness of Breath Comments: but able to take Aleve Date Reviewed: 07/18/2019 Reviewed by: Mindy Tamayo Ma - Fully Assessed Visit Diagnosis:Encounter for screening mammogram for breast cancer [Z12.31] Order(s):[facility] SCREENING [[id number]] Order #: [id number] FUTURE Prescriptions as of 09/24/2020 - albuterol [...] Status:Closed by MIREILLE TAO on 09/24/20 [facility] Summary Purpose Family History No Family History Records FoundNo Family History Records FoundNo Family History Records FoundNo Family History Records Found Advance Directives No Advanced Directives Records FoundNo Advanced Directives Records FoundNo Advanced Directives Records FoundNo Advanced Directives Records Found Additional Source Comments INFORMATION SOURCE (unrecogn ized section and content) DATE CREATED AUTHOR AUTHOR'S ORGANIZ ATION 12/28/2019 [facility] DATE CREATED AUTHOR AUTHOR'S ORGANIZ ATION 03/26/2020 [facility] DATE CREATED AUTHOR AUTHOR'S ORGANIZ ATION 09/24/2020 [facility] FOR RECORDS PERTAINING TO PATIENTS WHO ARE [...] BE BASED ON THE PRIMARY CLINICAL RECORDS. [facility] [employer] [facility]. provides no warranty or guarantee of the accuracy or completeness of information in this document.
--- NOTE | 2023-05-13 08:58 | HP.PCM_ITS ---
HPI - General HPI Narrative FABIENNE FRANKS, is a 48 F who presents with bilateral lower extremity varicose veins. Also has increased pelvic pain/pressure, worse with physical activity, dyspareunia. No prior DVT or venous procedures. Did have hysterectomy for bleeding fibroids, bladder sling, x 3. CT did not reveal varicosities in the pelvis or enlarged ovarian vein PFSH Medical History Abnormal uterine bleeding Anemia Arthritis Back pain Chest pain Chronic back pain Chronic fatigue Colon cancer screening CPAP (continuous positive airway pressure) dependence Family history of early CAD Generalized anxiety disorder Hair loss disorder History of edema History of pain when walking Hyperlipidemia Hypertension Leg cramps Lung nodule seen on imaging study Lung nodules Migraine headache Neck pain Non-smoker Obesity CHRISTIANA (obstructive sleep apnea) Preventative health care Seizures Sleep apnea Tiredness UTI (urinary tract infection) Varicose veins of both lower extremities Vitamin B12 deficiency Weight loss Home Medications fluoxetine 20 mg tablet 20 mg PO BID #180 tabs 09/03/22 [Rx Last Taken Unknown] mecobalamin (vitamin B12) 10,000 mcg solution for injection 10,000 mcg IM .once a month 12/15/22 [History Last Taken Unknown] cyanocobalamin (vitamin B-12) 1,000 mcg/mL injection solution See Rx Instructions .Route .COMPLEX #3 mL 01/02/23 [Rx Last Taken Unknown] syringe with needle, safety 3 mL 25 gauge x 1 (Easy Touch SheathLock Syringe with Needle) #100 ea 03/18/23 [Rx Last Taken Unknown] Allergy/AdvReac Type Severity Reaction Status Date / Time ibuprofen [From Motrin] AdvReac Intermediate Shortness Verified 04/06/23 15:20 of breath Family History Father Diabetes Heart disease Lung cancer smoker- agent orange Arthritis Cancer Mother High cholesterol Surgical History History of History of carpal tunnel surgery of left wrist History of endometrial ablation History of gastric stapling History of tonsillectomy History of tubal ligation Hx laparoscopic cholecystectomy Hx of bilateral cataract extraction Status post hysterectomy (~10/17/21) Social History Smoking Status: Never smoker alcohol intake: never substance use type: does not use caffeine: Yes what type of physical activity do you participate in: none seatbelt use: always do you feel safe at home: Yes additional social history: [employer]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 [employer] ROS Constitutional Constitutional: Denies chills, fever(s), frequent falls, lethargy or weakness Eyes Eyes: Denies blind spots, change in vision or loss of vision ENT HEENT: Denies bleeding gums, hoarseness or sore throat Cardiovascular Cardiovascular: Denies abdominal pain, bluish discoloration of hand/feet, chest pain with activity, claudication, cold extremities, cyanosis, dyspnea on exertion, erythema on extremities, irregular heart rhythm, leg edema, leg ulcers, numbness in extremities or weakness in extremities Respiratory/Chest Respiratory/Chest: Denies cough, excessive phlegm production, shortness of breath at rest, shortness of breath with exertion or wheezing Gastrointestinal Gastrointestinal: Denies anorexia, change in stool character, constipation, diarrhea, melena or rectal bleeding Genitourinary Genitourinary: Denies dysuria or hematuria Musculoskeletal Musculoskeletal: Denies abnormal gait Integumentary Integumentary: Reports other Details: ; Denies erythema, non-healing lesions or wounds Neurologic Neurologic: Denies abnormal speech, focal weakness, headache(s), loss of vision, numbness, paresthesias or sensory deficit Hematologic/Lymphatic Hematologic/Lymphatic: Denies easy bleeding, easy bruising or lymphadenopathy Vital Signs Vital Signs Vital Signs: Weight Weight: 259 lb Body Mass Index (BMI) 44.4 Physical Exam Const alert, oriented x3, no apparent distress and healthy appearing General Appearance: cooperative; Negative for combative or lethargic Orientation / Consciousness: awake Exam Limitations: no limitations HEENT Head and Scalp: normocephalic and atraumatic Eyes EOMs intact bilaterally General Eye: normal appearance of both eyes Neck full ROM, no lymphadenopathy, thyroid normal and No no carotid bruits General: trachea midline; Negative for lymphadenopathy or tenderness Thyroid: thyroid normal Lymph Lymphatic: Negative for no lymphadenopathy noted Resp normal respiratory effort and no use of accessory muscles Effort and Inspection: Negative for labored, stridor or audible wheezes Cardio regular rate and regular rhythm Peripheral Pulses: brachial pulses present and radial pulses present Back/Spine Cervical Spine: cervical ROM normal Extremity full ROM, normal capillary refill and no clubbing, cyanosis or edema Skin no rashes or lesions noted and no wounds Neuro oriented x3, CN's II-XII intact bilaterally, no focal motor deficits and no sensory deficits noted Psych thought process normal, cooperative, affect normal, speech normal and activit y/motor behavior normal Results Lab / Micro Data 05/13/23 08:28 05/13/23 08:28 Assessment & Plan Assessment/Plan (1) Varicose veins of bilateral lower extremities with pain: PLAN: -venogram
[2023-05-13 09:46] LABS: Hematocrit 38.2 % (37-47); Hemoglobin 11.9 g/dL (12.0-15.0); Mean Corp Hgb Conc 31.2 g/dL (32-36); Mean Corpuscular Hgb 26.7 pg (27.0-32.0); Mean Corpuscular Volume 85.7 fL (81-99); Mean Platelet Vol. 10.3 fl (6.2-12.0); Platelet Count 287 K/mm3 (150-450); RBC Distribution Width CV 13.7 % (11.6-14.6); RBC Distribution Width SD 42.7 fl (35.1-43.9); Red Blood Count 4.46 M/mm3 (4.2-5.4); White Blood Count 7.1 K/mm3 (4.4-11.0)
[2023-05-13 10:26] LABS: Anion Gap 8 (5-15); BUN 12 mg/dL (7-18); BUN/Creat Ratio 17.1 RATIO (10-20); Calcium,Total 9.6 mg/dL (8.5-10.1); Chloride 106 mmol/L (98-107); EST Glomerular Filtration Rate 95 mL/min (>60); Est Glom Filt Rate - Afr Amer 115 mL/min (>60); Estimated Creatinine Clearance 126.53 ml/min; Glucose 91 mg/dL (74-106); Potassium 3.9 mmol/L (3.5-5.1); Sodium Level 142 mmol/L (136-145)
--- NOTE | 2023-05-13 10:45 | PCM.OPRPT ---
Report of Operation Date of Procedure: 05/13/23 Pre-Operative Diagnosis: varicose veins with pain Post-Operative Diagnosis: same Surgery/Procedure Performed:: venogram IVC IVUS IVC, bilateral common/external iliac veins angioplasty/stent right common iliac vein Description of Surgical Findings:: Right common iliac vein compression 65% compression, left common iliac vein compression 47% Surgeon: Marck Thompson Type of Anesthesia: Local and Sedation,Conscious Estimated Blood Loss (mL): 2 Description of Procedure: HPI: Patient is a 48-year-old female with proximal bilateral lower extremity painful varicose veins. She had reflux studies which revealed no significant valvular incompetence in the deep veins or great saphenous veins of the bilateral extremities. She is taken now for venogram to assess for central venous compression. Description of procedure: Upon obtaining form consent and verification correct patient procedure site patient was taken to the Sort Line where she was positioned prepped and draped in usual sterile fashion. Timeout was then performed, sedation administered Versed and fentanyl. Skin overlying the right common femoral vein was anesthetized 1% lidocaine and the saphenofemoral junction accessed under ultrasound guidance with micropuncture needle wire. This was then exchanged for micropuncture sheath routine injection ilio caval venogram was performed revealed satisfactory positioning no extravasation dissection. This also revealed narrowing of the mid common iliac vein. Through the micropuncture sheath [employer]ystem[employer] wire advanced the micropuncture sheath exchanged out for a 10 [place] sheath. Next skin overlying the left common femoral vein was anesthetized 1% lidocaine and the vessel accessed under ultrasound guidance with micropuncture needle wire. This exchanged out for micropuncture sheath routine injection ilio caval venogram was performed revealing satisfactory position no extravasation dissection. This also revealed very large caliber common iliac vein with some decreased opacification in the mid segment. [place] advantage wire was then advanced and the micropuncture sheath exchanged for a 10 [place] sheath. Intravascular sound probe was advanced via the right femoral access sheath and recorded pullback performed of the IVC, right, vein, right external iliac vein. This revealed 65% compression of the mid common iliac vein. Ultrasound probe was then withdrawn and advanced via the left femoral access sheath recorded pullback of the IVC, left common iliac vein, left external leg pain was performed. This revealed a 47% compression of the mid left common iliac vein. It was felt that the right common iliac vein compression met threshold for treatment and that the left was borderline. Reference vessel measurements of the proximal and distal landing zones and length measurement was performed and a Bard Venovo 18 x 100 stent was advanced in the position and deployed. This was then postdilated with a Bard Livermore 16 x 4 angioplasty balloon inflated to nominal along the entirety of the stent. The balloon was then withdrawn and intravascular ultrasound probe was readvanced and recorded pullback performed revealing satisfactory stent positioning with good wall apposition and no residual compression. Completion venogram confirmed brisk contrast transit with no extravasation or dissection. Silk suture was then placed at the access sites and the sheath withdrawn followed by 5 minutes of manual pressure with satisfactory stasis noted. Patient then taken recovery room for bedrest prior to discharge home Grafts/Implants Used: Bard Venovo 18 x 100
== END 2023-05-13 12:49 | disposition home or self-care (01) ==
LOC: CLSP 08:25
PROVIDERS: PCP Internal Medicine; Referring Provider Surgery Trauma Surgery; Visit Provider Surgery Trauma Surgery
DX: I83.813 Varicose veins of bilateral lower extremities with pain (principal); M54.9 Dorsalgia, unspecified; I10 Essential (primary) hypertension; E78.5 Hyperlipidemia, unspecified; F41.1 Generalized anxiety disorder; G89.29 Other chronic pain; Z90.49 Acquired absence of other specified parts of digestive tract; Z98.84 Bariatric surgery status; Z98.42 Cataract extraction status, left eye; Z98.51 Tubal ligation status; G47.33 Obstructive sleep apnea (adult) (pediatric)
CPT/HCPCS: 36010; 36415; 37238; 37252; 37253; 75825; 76937; 80048; 85027; 99152; 99153; C1725; C1753; C1769; C1876; C1894; J7040; Q9967

== ENCOUNTER 2023-05-18 21:42 | Emergency (ER) | payer OTHER, SELFPAY ==
[2023-05-18 21:43] VITALS: BP 151/79; PULSE 89; RESP 16; TEMP 36.1; O2SAT 100; BMI 42.8
--- NOTE | 2023-05-18 23:00 | CT_ITS ---
EXAM: CT HEAD WITHOUT INTRAVENOUS CONTRAST CLINICAL INDICATION: headache, vomiting, new antiplatelet TECHNIQUE: Multiple axial images were obtained of the head without intravenous contrast. This CT exam was performed using one or more of the following dose reduction techniques: automated exposure control, adjustment of the mA and/or kV according to patient size, and/or use of iterative reconstruction technique. RADIATION DOSE: CTDIvol = 44.99 mGy, DLP = 846.73 mGy-cm COMPARISON: 12/10/2022. FINDINGS: BRAIN AND EXTRA-AXIAL SPACES: Unremarkable. No intra- or extra-axial hemorrhage. No evidence of acute infarct. No intracranial mass or mass effect. There is preservation of the landis/white matter interface. Posterior fossa structures are unremarkable. Ventricles are appropriate for age. No hydrocephalus. Basal cisterns are patent. BONES/JOINTS: Unremarkable. No discrete lytic or blastic abnormalities. SINUSES: Unremarkable as visualized. Clear. MASTOID AIR CELLS: Unremarkable. Clear. ORBITS: Visualized globes, extraocular muscles, optic nerves and retrobulbar fat appear unremarkable. CT/Brain/Head without Contrast IMPRESSION: Negative head/brain CT without intravenous contrast. Electronically Signed: Kenneth Grayson MD at 0:40 EDT ,
--- NOTE | 2023-05-18 23:01 | EKG12_ITS ---
Test Reason : DYSRHYTHMIA Blood Pressure : / mmHG Vent. Rate : 081 BPM Atrial Rate : 081 BPM P-R Int : 186 ms QRS Dur : 094 ms QT Int : 404 ms P-R-T Axes : 053 039 044 degrees QTc Int : 469 ms Normal sinus rhythm Normal ECG Confirmed by MARKOS VICTOR, BRIAN ([id number]), supervising editor news reel RAF MONTANEZ [id number]) on 05/19/2023 8:02:37 AM Referred By: Confirmed By:BRIAN BURROWS MD
--- NOTE | 2023-05-18 23:01 | CT_ITS ---
EXAM: CT ABDOMEN AND PELVIS WITH INTRAVENOUS CONTRAST CLINICAL INDICATION: lower abd pain, n/v TECHNIQUE: Helically acquired images were obtained of the abdomen and pelvis with intravenous contrast. This CT exam was performed using one or more of the following dose reduction techniques: automated exposure control, adjustment of the mA and/or kV according to patient size, and/or use of iterative reconstruction technique. CONTRAST: 100 cc of Isovue-370 IV. RADIATION DOSE: CTDIvol = 26.53 mGy, DLP = 1769.16 mGy-cm COMPARISON: 04/14/2023. FINDINGS: LOWER THORAX: Unremarkable. Lung bases are clear. No cardiomegaly. No significant pericardial effusion. ABDOMEN: LIVER: There is diffuse low-attenuation of the liver. GALLBLADDER AND BILE DUCTS: Cholecystectomy. No intra- or extrahepatic biliary ductal dilation. PANCREAS: Unremarkable. No focal cystic or solid mass. SPLEEN: Unremarkable. Normal size without focal cystic or solid mass. ADRENALS: Unremarkable. No nodules. KIDNEYS AND URETERS: Unremarkable. Normal renal size and position. No hydronephrosis. STOMACH AND BOWEL: Status post gastric sleeve surgery. No stomach or bowel distention. No focal inflammatory change. PELVIS: APPENDIX: Normal appendix. BLADDER: Unremarkable. REPRODUCTIVE: Hysterectomy. ABDOMEN and PELVIS: INTRAPERITONEAL SPACE: Unremarkable. No ascites or other fluid collection. No free air. BONES/JOINTS: Unremarkable. No suspicious lytic or blastic abnormality. SOFT TISSUES: Unremarkable. No discrete abdominal or pelvic wall hernia. VASCULATURE: Stents within the right common iliac vein. Abdominal aorta is non-dilated. LYMPH NODES: Unremarkable. No enlarged lymph nodes. CT/Abdomen/Pelvis W IV Cont ONLY IMPRESSION: 1. Fatty liver. 2. Cholecystectomy. 3. Stents within the right common iliac vein. 4. Hysterectomy. 5. No acute abdominal pelvic abnormality. 6. Status post gastric sleeve surgery. No obstruction. Electronically Signed: Kenneth Grayson MD at 0:42 EDT ,
--- NOTE | 2023-05-18 23:03 | EDS_ITS ---
HPI History of Present Illness Chief Complaint: Headache Informant: patient Narrative Narrative: Patient presents with right-sided headache going down the back of her neck and into her right upper chest, discomfort in her chest that hurts more to take a deep breath, and pain in her right lower quadrant of her abdomen. She states all of this started yesterday, when she woke up with a headache and neck pain. She denies any neurologic symptoms. She had said some sensitivity to light, yesterday she had an episode of vomiting, she does not know if it was associated with severe headache or abdominal pain at that time. States she does not usually get headaches but she did have headaches similar to this couple months ago. Of note just 5 days ago she had a procedure where stents were placed in her lower extremity venous system. She states it was due to varicose veins that were pinched off. She is on aspirin and clopidogrel as a result of this, no other new medications. She denies any head injuries lately. She denies anything that she can think of that would result in straining her neck although she admits she did wake up with the symptoms yesterday. She has had some feelings of being hot, denies any known fevers or chills. Denies any coughing or shortness of breath. She states prior to this has been placed she was having pain and swelling in her leg, there is been no major changes there she is wearing her compression stockings. [facility] Medical History Abnormal uterine bleeding Anemia Arthritis Back pain Chest pain Chronic back pain Chronic fatigue Colon cancer screening CPAP (continuous positive airway pressure) dependence Family history of early CAD Generalized anxiety disorder Hair loss disorder History of edema History of pain when walking Hyperlipidemia Hypertension Leg cramps Lung nodule seen on imaging study Lung nodules Migraine headache Neck pain Non-smoker Obesity [place] (obstructive sleep apnea) Preventative health care Seizures Sleep apnea Tiredness UTI (urinary tract infection) Varicose veins of both lower extremities Vitamin B12 deficiency Weight loss Home Medications fluoxetine 20 mg tablet 20 mg PO BID #180 tabs 09/03/22 [Rx Last Taken Unknown] mecobalamin (vitamin B12) 10,000 mcg solution for injection 10,000 mcg IM .once a month 12/15/22 [History Last Taken Unknown] cyanocobalamin (vitamin B-12) 1,000 mcg/mL injection solution See Rx Instructions .Route .COMPLEX #3 mL 01/02/23 [Rx Last Taken Unknown] syringe with needle, safety 3 mL 25 gauge x 1 (Easy Touch SheathLock Syringe with Needle) #100 ea 03/18/23 [Rx Last Taken Unknown] clopidogrel 75 mg tablet (Plavix) 75 mg PO .daily #90 tabs 05/13/23 [Rx Last Taken Unknown] Allergy/AdvReac Type Severity Reaction Status Date / Time ibuprofen [From Motrin] AdvReac Intermediate Shortness Verified 05/18/23 21:43 of breath Family History Father Diabetes Heart disease Lung cancer smoker- agent orange Arthritis Cancer Mother High cholesterol Surgical History History of History of carpal tunnel surgery of left wrist History of endometrial ablation History of gastric stapling History of tonsillectomy History of tubal ligation Hx laparoscopic cholecystectomy Hx of bilateral cataract extraction Status post hysterectomy (~10/17/21) Social History Smoking Status: Never smoker alcohol intake: never substance use type: does not use caffeine: Yes what type of physical activity do you participate in: none seatbelt use: always do you feel safe at home: Yes additional social history: [employer] [facility] [place] patient works at [employer] ROS ROS ED Constitutional Constitutional ED: Denies chills or fever(s) Eyes Eyes: Reports photophobia; Denies blurry vision or diplopia ENT ENT ED: Denies ear pain, rhinorrhea or sore throat Cardiovascular Cardiovascular: Reports chest pain; Denies palpitations Respiratory/Chest Respiratory/Chest: Denies cough or dyspnea Gastrointestinal Gastrointestinal: Reports abdominal pain; Denies diarrhea, hematemesis, hematochezia or melena Genitourinary Genitourinary ED: Denies dysuria, hematuria or urinary frequency Musculoskeletal Musculoskeletal: Reports neck pain; Denies back pain or myalgias Integumentary Denies abscess or rash Neurologic Neurologic: Reports headache(s); Denies paresthesias or weakness Psychiatric Psychiatric: Denies suicidal ideation or suicidal thoughts EXAM Physical Exam Const Vital Signs: 05/18/23 21:43 05/18/23 23:32 05/19/23 00:20 Temperature 97 F L Temperature Source Temporal Pulse Rate 89 74 79 Respiratory Rate 16 16 16 Blood Pressure 151/79 H 132/82 H 107/68 Blood Pressure Mean 103 98 81 Pulse Ox 100 98 97 Oxygen Delivery Method Room Air Room Air Positive well nourished, well developed and obese General Appearance ED: well developed and NAD Nutritional Appearance: obese HEENT Reports normocephalic and moist mucous membranes atraumatic Eyes PERRL, EOMs intact bilaterally and conjunctivae normal Eyes Narrative: photophobia Neck no lymphadenopathy, supple and no meningeal signs Neck Narrative: Tender in the right posterior cervical spine spinal musculature going down into the rhomboids and more lateral portions of the upper trapezius as well. Also tender in the insertion of the right sternocleidomastoid and surrounding areas around that clavicle. Normal on inspection. No mastoid process tenderness. Full range of motion of the neck, no meningismus. General: tenderness Chest Wall inspection of chest normal Resp normal respiratory effort and clear to auscultation bilaterally Cardio regular rate, regular rhythm and no murmurs Rate: Negative for tachycardic GI non-distended GI Narrative: Mild diffuse lower abdominal tenderness, but not immediate suprapubic tenderness. No guarding or rebound tenderness. No upper abdominal tenderness negative [place]. Auscultation: normoactive bowel sounds Palpation: soft Back/Spine no CVA tenderness General Back: other FROM Extremity normal to inspection and full ROM General Extremety ED: Negative for pulses abnormal or tenderness General Extremity: Negative for pulses abnormal Neuro oriented x3 and CN's II-XII intact bilaterally Sensorium / Orientation: awake and alert Speech: speech normal Gait (Neuro): normal gait Motor Exam: strength 5/5 throughout Psych mental status grossly normal Skin no rashes or lesions noted and no wounds Skin Narrative: 2 small surgical incisions each with [address] both inguinal areas benign appearing without discharge, significant tenderness, signs of infection, or dehiscence. Lesions: no lesions Rashes: no rashes MDM MDM MDM Narrative Medical decision making narrative: Patient presents with headache, vomiting, abdominal pain, and also today has been having chest discomfort all day that she states has a bit of a pleuritic component but denies any dyspnea. Based on my exam I think that the chest and neck discomfort are all musculoskeletal which we talked about. She is understanding of that. We did some test to rule out other etiologies of this including a CT of the head to evaluate for intracranial hemorrhage and she is now on clopidogrel that she was not on before, and EKG which is normal, chest x- ray 2 views my interpretation negative, which radiology is in agreement with, and a troponin that is negative. Given that her PERC score is 0 I do not think she needs further workup for pulmonary embolus in context of all of this. I reviewed her records of her recent procedure. It seems that she had a clinical diagnosis of pelvic congestion syndrome and varicose veins and so she was taken for a venogram where they saw that she had stenosis of the right common iliac vein that was enough for stenting, and she also had stenosis of the left common iliac vein but not enough for stenting. It seems part of the reason they took her for the venogram was that she was having pelvic pain. With regards to her abdominal pain, she seemed to indicate that this was something new and was worse when she was having a bowel movement earlier, different than her other pelvic pain, so we sent her for CT of the abdomen/pelvis with IV contrast to rule out appendicitis. I reviewed the CT images, which show her right common iliac vein stent, fatty liver, other couple incidental findings, I reviewed the radiologist interpretation and I agree with it, there is nothing acute, including acute vascular complications of the recent manipulation. Patient was given Reglan while she was getting workup, it helped her headache a little bit. She still having some abdominal discomfort although she was never in any distress. Will give her something for pain prior to discharge, she is due to follow-up postoperatively but does not have the appointment yet is post to receive a phone call from the office tomorrow. Unknown if this could be related to her stent, it is in the general area where she is having pain. History & Record Review Additional record(s) reviewed:: Prior outpatient record Lab Data Attestation: I reviewed the patient's lab results. Labs: Laboratory Results - last 24 hr 05/18/23 05/18/23 23:17 23:34 WBC 8.8 RBC 3.68 L Hgb 10.0 L Hct 31.3 L MCV 85.1 MCH 27.2 MCHC 31.9 L RDW Std Deviation 42.4 RDW Coeff of Aretha 13.6 Plt Count 216 MPV 9.7 Immature Gran % (Auto) 0.500 Neut % (Auto) 68.5 Lymph % (Auto) 22.2 [place] % (Auto) 7.6 Eos % (Auto) 1.0 Baso % (Auto) 0.2 Absolute Neuts (auto) 6.0 Absolute Lymphs (auto) 1.95 Nucleated RBC % 0 Sodium 138 Potassium 3.5 Chloride 106 Carbon Dioxide 25.0 Anion Gap 7 BUN 15 Creatinine 0.70 Estim Creat Clear Calc 128.28 Est GFR (MDRD) Af Amer 116 Est GFR (MDRD) Non-Af 96 BUN/Creatinine Ratio 21.4 H Glucose 88 Calcium 9.8 Troponin I High Sens 5 Urine Color Yellow Urine Clarity Clear Urine pH 5.0 Ur Specific [place] 1.020 Urine Protein Negative Urine Glucose (UA) Normal Urine Ketones Negative Urine Occult Blood Negative Urine Nitrite Negative Urine Bilirubin Negative Urine Urobilinogen Normal Ur Leukocyte Esterase 25 H Urine RBC 10-25 SEEN Urine WBC 0-5 SEEN Ur Squamous Epith Cells 10-25 SEEN Urine Bacteria 2+ Urine Mucus 0 SEEN Radiography Diagnostic Testing: Clinical Impression(s) from Imaging Studies Brain CT 05/18/23 23:00 IMPRESSION: Negative head/brain CT without intravenous contrast. Electronically Signed: Kenneth Grayson MD at 0:40 EDT , Abdomen/Pelvis CT 05/18/23 23:01 IMPRESSION: 1. Fatty liver. 2. Cholecystectomy. 3. Stents within the right common iliac vein. 4. Hysterectomy. 5. No acute abdominal pelvic abnormality. 6. Status post gastric sleeve surgery. No obstruction. Electronically Signed: Kenneth Grayson MD at 0:42 EDT , Rhythm Strip Rhythm Strip: Sinus Rhythm Rate: 80 Ectopy: None EKG Initial EKG: Attestation: I personally reviewed and interpreted this EKG as follows: Interpretation: Sinus Rhythm and No Acute Injury Pattern Comments: nml EKG Discharge Plan Triage Chief Complaint: Headache ED Provider: Wayne Lara Dx/Rx/DC Orders Clinical Impression: Acute headache, Musculoskeletal neck pain, Musculoskeletal chest pain, Lower abdominal pain Instructions: Abdominal Pain, ED, Migraine (Classical) Prescriptions: No Action mecobalamin (vitamin B12) 10,000 mcg recon soln 10,000 mcg IM .once a month fluoxetine 20 mg tablet 20 mg PO BID Qty: 180 1RF Rx Instructions: administer in the morning and at noon/midday clopidogrel [Plavix] 75 mg tablet 75 mg PO .daily Qty: 90 3RF cyanocobalamin (vitamin B-12) 1,000 mcg/mL solution See Rx Instructions .ROUTE .COMPLEX Qty: 3 3RF Dose Instruction: INJECT 1000 MCG (1ML) INTRAMUSCULARLY ONCE A MONTH Rx Instructions: INJECT 1000 MCG (1ML) INTRAMUSCULARLY ONCE A MONTH (DME) Easy Touch SheathLock Syrg-Ndl 3 mL 25 gauge x 1 syringe See Rx Instructions .Route Qty: 100 1RF Rx Instructions: As directed for B-12 injections Primary Care Provider: Mynor Garcia Referrals: Mynor Garcia MD [Primary Care Provider] - 3-5 Days if not improving Marck Thompson MD [Med Staff - Active Staff] - (As directed for follow-up) Disposition Disposition: Home, Self Care
[2023-05-18] MEDS: Metoclopramide 10 MG/2 ML Vial 5 MG IV (23:18)
[2023-05-18] MEDS: Dicyclomine 10 MG Capsule 20 MG PO (23:18)
[2023-05-18] MEDS: 0.9% Normal Saline (1000mL) 1,000 ML 125 ML IV (23:18)
[2023-05-18 23:28] LABS: Absolute Lymphocyte Count 1.95 X10^3/uL (0.83-4.51); Basophil# 0.02 X10^3/uL; Basophil% 0.2 % (0-1); Eosinophil# 0.09 X10^3/uL; Hematocrit 31.3 % (37-47); Lymphocyte # 1.95 X10^3/ul (0.83-4.51); Lymphocyte % 22.2 % (19-41); Mean Corp Hgb Conc 31.9 g/dL (32-36); Mean Corpuscular Hgb 27.2 pg (27.0-32.0); Mean Corpuscular Volume 85.1 fL (81-99); Mean Platelet Vol. 9.7 fl (6.2-12.0); Monocyte# 0.67 X10^3/uL; Monocyte% 7.6 % (0-10); NRBC Flagged by Analyzer 0 % (0-5); Neutrophil % 68.5 % (47-70); Platelet Count 216 K/mm3 (150-450); RBC Distribution Width CV 13.6 % (11.6-14.6); RBC Distribution Width SD 42.4 fl (35.1-43.9); Red Blood Count 3.68 M/mm3 (4.2-5.4); White Blood Count 8.8 K/mm3 (4.4-11.0)
[2023-05-18 23:32] VITALS: BP 132/82; PULSE 74; RESP 16; O2SAT 98
[2023-05-18 23:42] LABS: Mucous, Urine 0 SEEN /hpf (<or=2+)
[2023-05-18 23:47] LABS: Anion Gap 7 (5-15); BUN 15 mg/dL (7-18); BUN/Creat Ratio 21.4 RATIO (10-20); Calcium,Total 9.8 mg/dL (8.5-10.1); Chloride 106 mmol/L (98-107); EST Glomerular Filtration Rate 96 mL/min (>60); Est Glom Filt Rate - Afr Amer 116 mL/min (>60); Estimated Creatinine Clearance 128.28 ml/min; Glucose 88 mg/dL (74-106); Potassium 3.5 mmol/L (3.5-5.1); Sodium Level 138 mmol/L (136-145); Troponin-I HS 5 pg/mL (3.0-54.0)
[2023-05-18 23:49] LABS: Color, Urine Yellow (Yellow); Glucose, Dipstick Normal (Normal); Ketone-Dipstick Negative (Negative); Leukocyte Esterase-Dipstick 25 /ul (Negative); Nitrite-Dipstick Negative (Negative); Occult Blood-Urine Negative /ul (Negative); Protein-Dipstick Negative (Negative); Urine Bilirubin Dipstick Negative (Negative); Urine Clarity Clear (Clear); Urine Urobilinogen Normal (Normal)
[2023-05-18 23:57] LABS: Red Blood Cells-Urine 10-25 SEEN /hpf (0-5); White Blood Cells 0-5 SEEN /hpf (0-5)
[2023-05-18 23:58] LABS: Bacteria 2+ /hpf (None Seen); Squamous Epithelial Cells - UA 10-25 SEEN /hpf (5-10)
[2023-05-19 00:20] VITALS: BP 107/68; PULSE 79; RESP 16; O2SAT 97
[2023-05-19 00:44] VITALS: BP 129/68; PULSE 80; RESP 17; TEMP 36.6; O2SAT 96
[2023-05-19] MEDS: oxyCODONE 5 MG Tablet PO (01:05)
== END 2023-05-19 01:07 | disposition home or self-care (01) ==
PROVIDERS: Emergency Provider Emergency Medicine; PCP Internal Medicine; Visit Provider Emergency Medicine
DX: R07.89 Other chest pain (principal); R51.9 Headache, unspecified; M79.18 Myalgia, other site; R10.30 Lower abdominal pain, unspecified; E78.5 Hyperlipidemia, unspecified; I10 Essential (primary) hypertension; G47.33 Obstructive sleep apnea (adult) (pediatric); Z99.89 Dependence on other enabling machines and devices; Z98.51 Tubal ligation status; Z90.49 Acquired absence of other specified parts of digestive tract; Z98.41 Cataract extraction status, right eye; Z98.42 Cataract extraction status, left eye; Z90.710 Acquired absence of both cervix and uterus
CPT/HCPCS: 70450; 74177; 80048; 81001; 84484; 85025; 87631; 93005; 96361; 96374; 99283; J7030; Q9967; A4216

== ENCOUNTER 2023-07-30 07:13 | Emergency (ER) | payer OTHER, SELFPAY ==
[2023-07-30 07:13] VITALS: BP 128/75; PULSE 70; RESP 14; TEMP 37.2; O2SAT 98; BMI 43.9
--- NOTE | 2023-07-30 07:46 | CT_ITS ---
STUDY: CT ABDOMEN AND PELVIS WITH CONTRAST REASON FOR EXAM: Female, 48 years old. RLQ abd pain RADIATION DOSAGE (If Supplied By Facility): CTDIvol = ( 20.32 ) mGy, DLP = ( 1302.05 ) mGycm TECHNIQUE: IV 100mL Isovue-370 was administered. Transaxial images were obtained from the dome of the diaphragm to the symphysis pubis. Multiplanar coronal and sagittal images were reformatted. The protocol utilizes one or more of the following dose reduction techniques: automated exposure control, adjustment of mA and/or kV according to patient size,and/or use of iterative reconstruction technique. COMPARISON: Prior study dated: 05/18/2023. FINDINGS: Persistent 1 cm right middle lobe nodule abutting the right hemidiaphragm. The visualized portions of the heart are within normal limits. Hepatomegaly and mild hepatic steatosis. There are surgical clips in the gallbladder fossa consistent with a prior cholecystectomy. Normal spleen. Normal pancreas. Normal bilateral adrenal glands. Small hiatal hernia. Status post gastric sleeve. Normal in caliber small bowel loops. Fecal retention. No evidence of acute diverticulitis. No evidence of acute appendicitis. Normal abdominal aorta. Right common iliac stent is again seen stable position since previous exam. No retroperitoneal adenopathy. Normal right kidney. Normal left kidney. Normal urinary bladder. Cystic changes in the right adnexal region. Status post hysterectomy. No free fluid. Normal abdominal wall. No demonstrated acute osseous changes. CT/Abdomen/Pelvis W IV Cont ONLY IMPRESSION: 1. No focal acute inflammatory process. 2. Stable 1 cm right lower lung nodule for which further follow-up exam in 3 months or correlation with PET scan is recommended. 3. Hepatomegaly and mild hepatic steatosis. 4. Status post gastric sleeve, hysterectomy and cholecystectomy. 5. Small cystic changes in the right adnexal region could be due to prominent follicles. 6. Right common iliac stent in stable position. Electronically Signed: Greg Hernandez MD at 9:59 EDT ,
--- NOTE | 2023-07-30 07:52 | ED.VIS.GI ---
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 Thompson, presenting with worsening lower abdominal pain. Patient states in her suprapubic and right lower quadrant. Pain does not radiate. She notes the pain in started approximately 5 days ago but is worsening over the past 2 days. She notes it is particularly sharp and bad when she coughs or sneezes but also worse with movement. She also has increased pain with urination. Never had pain like this before and this feels different than her prior pelvic congestive syndrome issues. She had 2 episodes of diarrhea yesterday but denies any black or blood in her stool. Denies any associated nausea or vomiting. Denies any fever or chills. Did not take any medication for symptoms prior to arrival. Is chronically on Plavix and aspirin because of her iliac stent. Has had prior abdominal surgeries including iliac stent, hysterectomy, gallbladder and gastric sleeve surgery. She does still have her appendix. [facility] Medical History Lung nodules Preventative [facility] care Colon cancer screening UTI (urinary tract infection) CHRISTIANA (obstructive sleep apnea) Chronic fatigue Lung nodule seen on imaging study Family history of early CAD Generalized anxiety disorder Hyperlipidemia Hypertension Arthritis Anemia Migraine headache Seizures Non-smoker CPAP (continuous positive airway pressure) dependence Sleep apnea Leg cramps History of pain when walking History of edema Chest pain Abnormal uterine bleeding Tiredness Weight loss Back pain Neck pain Varicose veins of both lower extremities Hair loss disorder Chronic back pain Obesity Vitamin B12 deficiency Home Medications ?Medication ?Instructions ?Recorded ?Last Taken ?Type mecobalamin (vitamin B12) 10,000 10,000 mcg IM .once a month 12/15/22 Unknown History mcg solution for injection cyanocobalamin (vitamin B-12) See Rx Instructions .Route 01/02/23 Unknown Rx 1,000 mcg/mL injection solution .COMPLEX #3 mL syringe with needle, safety 3 mL #100 ea 03/18/23 Unknown Rx 25 gauge x 1 (Easy Touch SheathLock Syringe with Needle) clopidogrel 75 mg tablet (Plavix) 75 mg PO .daily #90 tabs 05/13/23 Unknown Rx aspirin 81 mg tablet,delayed 81 mg PO DAILY 05/20/23 Unknown History release fluoxetine 20 mg tablet 20 mg PO BID #180 tabs 06/17/23 Unknown Rx hydrocodone-acetaminophen 5-325mg 1 tab PO Q6H PRN PRN Pain 3 days 07/30/23 Unknown Rx 5mg-325mg #10 TABLETS Allergy/AdvReac Type Severity Reaction Status Date / Time ibuprofen (From Motrin) AdvReac Intermediate Shortness Verified 07/30/23 07:14 of breath Family History Father Diabetes Heart disease Lung cancer smoker- agent orange Arthritis Cancer Mother High cholesterol Surgical History Status post hysterectomy (~10/17/21) Hx laparoscopic cholecystectomy Hx of bilateral cataract extraction History of carpal tunnel surgery of left wrist History of endometrial ablation History of gastric stapling History of History of tonsillectomy History of tubal ligation Social History Smoking Status: Never smoker alcohol intake: never substance use type: does not use caffeine: Yes what type of physical activity do you participate in: none seatbelt use: always do you feel safe at home: Yes additional social history: [employer] in [place] patient works at [employer] ROS ROS ED Constitutional Constitutional ED: Denies chills or fever(s) Cardiovascular Cardiovascular: Denies chest pain Respiratory/Chest Respiratory/Chest: Denies cough Gastrointestinal Gastrointestinal: Reports abdominal pain and diarrhea; Denies constipation, nausea or vomiting Musculoskeletal Musculoskeletal: Denies arthralgias or myalgias Integumentary Denies rash Neurologic Neurologic: Denies headache(s) Hematologic/Lymphatic Hematologic/Lymphatic: Denies easy bleeding or easy bruising EXAM Physical Exam Const Vital Signs: 07/30/23 07:13 07/30/23 09:13 07/30/23 11:00 Temperature 98.9 F Temperature Source Temporal Pulse Rate 70 79 72 Respiratory Rate 14 16 16 Blood Pressure 128/75 H 122/71 H 128/74 H Blood Pressure Mean 92 88 92 Pulse Ox 98 98 98 Oxygen Delivery Method Room Air Room Air 07/30/23 12:53 Temperature 97.3 F L Temperature Source Pulse Rate 71 Respiratory Rate 16 Blood Pressure 124/74 H Blood Pressure Mean 90 Pulse Ox 97 Oxygen Delivery Method Positive well nourished and well developed General Appearance ED: well developed and NAD HEENT Reports moist mucous membranes Eyes PERRL Resp normal respiratory effort and clear to auscultation bilaterally Cardio regular rate and regular rhythm GI GI Narrative: Negative Rovsing sign. No pulsatile mass appreciated. Inspection: Negative for abdominal distention Auscultation: hyperactive bowel sounds Palpation: soft and tender RLQ, McBurney's point and suprapubic; Negative for guarding, rigid or rebound tenderness present Extremity full ROM General Extremety ED: Negative for edema or tenderness General Extremity: Negative for edema Neuro Sensorium / Orientation: alert Motor Exam: Negative for general weakness Psych mental status grossly normal and thought process normal Skin no wounds Rashes: no rashes MDM MDM MDM Narrative Medical decision making narrative: Patient is evaluated for worsening suprapubic and right lower quadrant abdominal pain. Has had some associate diarrhea. Differential diagnosis includes was not limited to acute appendicitis, small bowel obstruction, abdominal hernia, occlusion of her iliac stent, nephrolithiasis, colitis and pyelonephritis. Patient's given IV fluids, Toradol and Zofran initially for pain control. Will reevaluate for response. Basic lab work obtained as well as CT of the abdomen pelvis. Most recent vascular office visit note reviewed from 06/03/[address] Thompson. She had a follow-up venogram of the right iliac vein stent. Has had improvement of symptoms and has been doing well. She has mild compression on the left but not treated and improved we will hold off in for their venogram/stent on left. Patient does not have improvement with Toradol. Is given dose of morphine with improvement of her symptoms. Lab work largely unremarkable. No signs of acute infection or signs of acute inflammatory process. CT of the abdomen and pelvis does not show any acute process. As she does have a stable 1 cm right lower lung nodule which patient is informed of and she is aware of already. Surgical changes and she has a small cystic change to the right adnexal region. Her right iliac stent is stable. Patient will be given outpatient referral to gynecology in case of the cyst is causing her pain. Also discussed that she could have a small hernia that is causing pain but is not requiring acute surgical intervention. I am not able to palpate a hernia defect at this time however patient does have an elevated BMI which is limited physical exam. Patient notes that she has increased pain with urination however her urinalysis is not consistent with infection and she is informed of this. Patient be discharged home with a short course of pain medication help with her symptoms and outpatient follow-up. She is agreeable to plan of care. Discharged home in stable condition. Is given return precautions to the emergency room. Lab Data Attestation: I reviewed the patient's lab results. Labs: Laboratory Results - last 24 hr 07/30/23 07/30/23 07:40 10:45 WBC 6.6 RBC 4.12 L Hgb 11.3 L Hct 36.0 L MCV 87.4 MCH 27.4 MCHC 31.4 L RDW Std Deviation 45.0 H RDW Coeff of Aretha 13.9 Plt Count 285 MPV 9.8 Immature Gran % (Auto) 0.300 Neut % (Auto) 68.0 Lymph % (Auto) 22.8 [place] % (Auto) 7.4 Eos % (Auto) 1.2 Baso % (Auto) 0.3 Absolute Neuts (auto) 4.5 Absolute Lymphs (auto) 1.50 Nucleated RBC % 0 Sodium 138 Potassium 3.8 Chloride 108 H Carbon Dioxide 24.0 Anion Gap 6 BUN 15 Creatinine 0.87 Estim Creat Clear Calc 104.65 Est GFR (MDRD) Af Amer 90 Est GFR (MDRD) Non-Af 74 BUN/Creatinine Ratio 17.2 Glucose 93 Calcium 9.6 Total Bilirubin 0.60 AST 16 ALT 21 Alkaline Phosphatase 132 H Total Protein 8.0 Albumin 3.6 Globulin 4.4 H Albumin/Globulin Ratio 0.8 L Urine Color Straw Urine Clarity Clear Urine pH 7.0 Ur Specific [place] 1.015 Urine Protein Negative Urine Glucose (UA) Normal Urine Ketones Negative Urine Occult Blood Negative Urine Nitrite Negative Urine Bilirubin Negative Urine Urobilinogen Normal Ur Leukocyte Esterase 100 H Urine RBC 0 SEEN Urine WBC 0 SEEN Ur Squamous Epith Cells 0 SEEN Urine Bacteria 0 SEEN Urine Mucus 0 SEEN Radiography Diagnostic Testing: Clinical Impression(s) from Imaging Studies Abdomen/Pelvis CT 07/30/23 07:46 IMPRESSION: 1. No focal acute inflammatory process. 2. Stable 1 cm right lower lung nodule for which further follow-up exam in 3 months or correlation with PET scan is recommended. 3. Hepatomegaly and mild hepatic steatosis. 4. Status post gastric sleeve, hysterectomy and cholecystectomy. 5. Small cystic changes in the right adnexal region could be due to prominent follicles. 6. Right common iliac stent in stable position. Electronically Signed: Greg Hernandez MD at 9:59 EDT , Discharge Plan Triage Chief Complaint: Abd Pain ED Provider: Bety Briggs Dx/Rx/DC Orders Clinical Impression: Lower abdominal pain of unknown etiology, Nodule of right lung Instructions: ED Abdominal Pain Unkn Cause Fem, ED Pulmonary Nodule, Solitary Prescriptions: New hydrocodone-acetaminophen 5-325 mg tablet 1 tab PO Q6H PRN PRN (Reason: Pain) 3 Days Qty: 10 0RF No Action mecobalamin (vitamin B12) 10,000 mcg recon soln 10,000 mcg IM .once a month aspirin 81 mg tablet,delayed release (DR/EC) 81 mg PO DAILY clopidogrel [Plavix] 75 mg tablet 75 mg PO .daily Qty: 90 3RF cyanocobalamin (vitamin B-12) 1,000 mcg/mL solution See Rx Instructions .ROUTE .COMPLEX Qty: 3 3RF Dose Instruction: INJECT 1000 MCG (1ML) INTRAMUSCULARLY ONCE A MONTH Rx Instructions: INJECT 1000 MCG (1ML) INTRAMUSCULARLY ONCE A MONTH (DME) Easy Touch SheathLock Syrg-Ndl 3 mL 25 gauge x 1 syringe See Rx Instructions .Route Qty: 100 1RF Rx Instructions: As directed for B-12 injections fluoxetine 20 mg tablet 20 mg PO BID Qty: 180 0RF Rx Instructions: administer in the morning and at noon/midday Primary Care Provider: Mynor Garcia Referrals: Mynor Garcia MD [Primary Care Provider] - Allie Coker DO [Med Staff - Active Staff] - As soon as possible Activity Restrictions/Additional Instructions: The exact cause your symptoms is not clear however there does not appear to be any acute surgical or infectious abnormality on your imaging and lab work today. You do have a pulmonary nodule that needs be followed up with your primary care doctor for routine monitoring. That current guidelines recommend repeat imaging in 3 months. In addition your CT did show prominent cyst/follicles of the right ovary which could be contribute to your pain. We recommend follow-up with gynecology for this. Print Language: Maltese Disposition Disposition: Home, Self Care Discharge Date/Time: 07/30/23 12:55
[2023-07-30] MEDS: 0.9% Normal Saline (1000mL) 1,000 ML 999 ML IV (07:57)
[2023-07-30] MEDS: Ketorolac 30 MG/ML Syringe 15 MG IV (07:57)
[2023-07-30 07:58] LABS: Absolute Neutrophil Count 4.5 X10^3/uL (2.0-7.7); Basophil# 0.02 X10^3/uL; Basophil% 0.3 % (0-1); Eosinophil# 0.08 X10^3/uL; Eosinophils% 1.2 % (0-5); Hemoglobin 11.3 g/dL (12.0-15.0); Lymphocyte % 22.8 % (19-41); Mean Corp Hgb Conc 31.4 g/dL (32-36); Mean Corpuscular Hgb 27.4 pg (27.0-32.0); Mean Corpuscular Volume 87.4 fL (81-99); Mean Platelet Vol. 9.8 fl (6.2-12.0); Monocyte# 0.49 X10^3/uL; Monocyte% 7.4 % (0-10); NRBC Flagged by Analyzer 0 % (0-5); Neutrophil # 4.48 X10^3/uL (2.7-7.7); Platelet Count 285 K/mm3 (150-450); RBC Distribution Width CV 13.9 % (11.6-14.6); Red Blood Count 4.12 M/mm3 (4.2-5.4); White Blood Count 6.6 K/mm3 (4.4-11.0)
[2023-07-30] MEDS: Ondansetron 4 MG/2 ML Vial IV (07:58)
[2023-07-30 08:13] LABS: ALB/GLOB Ratio 0.8 RATIO (0.9-2.4); AST(SGOT) 16 U/L (15-37); Alanine Aminotransfer ALT/SGPT 21 U/L (13-56); Albumin, Serum 3.6 g/dL (3.2-5.0); Alkaline Phosphatase 132 U/L (45-117); Anion Gap 6 (5-15); BUN 15 mg/dL (7-18); BUN/Creat Ratio 17.2 RATIO (10-20); Calcium,Total 9.6 mg/dL (8.5-10.1); Chloride 108 mmol/L (98-107); Creatinine, Serum 0.87 mg/dL (0.55-1.02); EST Glomerular Filtration Rate 74 mL/min (>60); Est Glom Filt Rate - Afr Amer 90 mL/min (>60); Estimated Creatinine Clearance 104.65 ml/min; Globulin 4.4 g/dL (2.2-4.2); Glucose 93 mg/dL (74-106); Potassium 3.8 mmol/L (3.5-5.1); Sodium Level 138 mmol/L (136-145)
[2023-07-30 09:13] VITALS: BP 122/71; PULSE 79; RESP 16; O2SAT 98
[2023-07-30 10:51] LABS: Bacteria 0 SEEN /hpf (None Seen); Mucous, Urine 0 SEEN /hpf (<or=2+); Red Blood Cells-Urine 0 SEEN /hpf (0-5); Squamous Epithelial Cells - UA 0 SEEN /hpf (5-10); White Blood Cells 0 SEEN /hpf (0-5)
[2023-07-30 11:00] VITALS: BP 128/74; PULSE 72; RESP 16; O2SAT 98
[2023-07-30 11:01] LABS: Color, Urine Straw (Yellow); Glucose, Dipstick Normal (Normal); Ketone-Dipstick Negative (Negative); Leukocyte Esterase-Dipstick 100 /ul (Negative); Nitrite-Dipstick Negative (Negative); Occult Blood-Urine Negative /ul (Negative); Protein-Dipstick Negative (Negative); Specific Gravity, Urine 1.015 (1.002-1.030); Urine Bilirubin Dipstick Negative (Negative); Urine Clarity Clear (Clear); Urine Urobilinogen Normal (Normal)
[2023-07-30] MEDS: Morphine 4 MG/ML Syringe IV (11:59)
[2023-07-30 12:53] VITALS: BP 124/74; PULSE 71; RESP 16; TEMP 36.3; O2SAT 97
== END 2023-07-30 12:55 | disposition home or self-care (01) ==
PROVIDERS: Emergency Provider Emergency Medicine; PCP Internal Medicine; Visit Provider Emergency Medicine
DX: R10.31 Right lower quadrant pain (principal); I10 Essential (primary) hypertension; E78.5 Hyperlipidemia, unspecified; Z79.02 Long term (current) use of antithrombotics/antiplatelets; Z79.82 Long term (current) use of aspirin; Z90.710 Acquired absence of both cervix and uterus; G47.33 Obstructive sleep apnea (adult) (pediatric); Z99.89 Dependence on other enabling machines and devices; Z90.49 Acquired absence of other specified parts of digestive tract; Z98.41 Cataract extraction status, right eye; Z98.42 Cataract extraction status, left eye; Z98.51 Tubal ligation status; R10.32 Left lower quadrant pain; R91.1 Solitary pulmonary nodule
CPT/HCPCS: 74177; 80053; 81001; 85025; 96361; 96374; 96375; 99282; Q9967; A4216; J2405

== ENCOUNTER → 2023-08-14 | Outpatient (CLI) | payer OTHER, SELFPAY | END | disposition home or self-care (01) | LOC: LABSPEC 17:11 | PROVIDERS: PCP Internal Medicine; Referring Provider Obstetrics & Gynecology; Visit Provider Obstetrics & Gynecology | DX: R10.2 Pelvic and perineal pain (principal) | CPT/HCPCS: 87086; 87088; 87186 ==

== ENCOUNTER 2023-09-11 15:37 | Emergency (ER) | payer OTHER, SELFPAY ==
[2023-09-11 15:37] VITALS: BP 147/84; PULSE 84; RESP 16; TEMP 36.6; O2SAT 99; BMI 43.5
--- NOTE | 2023-09-11 15:50 | VDLE_ITS ---
Reason For Study: RLE Pain RIGHT LEFT GSV is normal. FV is compressible, spontaneous, phasic, CFV is compressible, spontaneous, phasic, competent and demonstrates normal competent and demonstrates normal augmentation. augmentation. FV is compressible, spontaneous, phasic, competent and demonstrates normal augmentation. POP V is compressible, spontaneous, phasic, competent and demonstrates normal augmentation. T/P Trunk is compressible. PTV is compressible. RT PerV is compressible. ASV Varicosities noted throughout thigh. However the vessel appears patent and compressible. Procedure This is a venous duplex using B-mode, color flow and spectral Doppler. Exam performed portable in ED. The study was technically difficult. A preliminary report was called and/or faxed to ED RN / Dr. Sin. VL/Venous Duplex US, Unilateral Interpretation Summary Deep veins of the right lower extremity are patent and compressible segmentally . There is no evidence of right lower extremity deep vein thrombosis. The right great sapheno us vein appears patent and compressible segmentally. Ordering Physician: Marck Sin Referring Physician: Mynor Garcia Performed By: Ty Parr, NEETU
--- NOTE | 2023-09-11 15:51 | EDS_ITS ---
HPI History of Present Illness HPI Narrative: Patient presents with pain to her right knee and lower leg that began when she woke up today. Patient states it became worse throughout the day. Patient states it began rather suddenly when she woke up. Patient describes it as cramping. Patient states it is mainly over the posterior aspect of her knee and calf. Patient states she does have some cramping over the anterior distal quadricep area. Patient denies any trauma or injury. Patient denies any paresthesias or weakness. Patient states nothing makes her pain worse and nothing makes it better. Chief Complaint: Lower Extremity Injury Informant: patient Onset/Context/Timing Onset: Today Context: Sudden Onset Timing: Continuous Quality of Pain: Aching and - (Cramping) Location: Right posterior knee and calf Worsened by: Nothing Relieved by: Nothing Associated Symptoms Associated Symptoms: Negative for Parasthesia or Weakness [facility] Medical History Lung nodules Preventative health care Colon cancer screening UTI (urinary tract infection) CHRISTIANA (obstructive sleep apnea) Chronic fatigue Lung nodule seen on imaging study Family history of early CAD Generalized anxiety disorder Hyperlipidemia Hypertension Arthritis Anemia Migraine headache Seizures Non-smoker CPAP (continuous positive airway pressure) dependence Sleep apnea Leg cramps History of pain when walking History of edema Chest pain Abnormal uterine bleeding Tiredness Weight loss Back pain Neck pain Varicose veins of both lower extremities Hair loss disorder Chronic back pain Obesity Vitamin B12 deficiency Home Medications ?Medication ?Instructions ?Recorded ?Last Taken ?Type mecobalamin (vitamin B12) 10,000 10,000 mcg IM .once a month 12/15/22 Unknown History mcg solution for injection cyanocobalamin (vitamin B-12) See Rx Instructions .Route 01/02/23 Unknown Rx 1,000 mcg/mL injection solution .COMPLEX #3 mL syringe with needle, safety 3 mL #100 ea 03/18/23 Unknown Rx 25 gauge x 1 (Easy Touch SheathLock Syringe with Needle) clopidogrel 75 mg tablet (Plavix) 75 mg PO .daily #90 tabs 05/13/23 Unknown Rx aspirin 81 mg tablet,delayed 81 mg PO DAILY 05/20/23 Unknown History release fluoxetine 20 mg tablet 20 mg PO BID #180 tabs 06/17/23 Unknown Rx nitrofurantoin 100 mg PO BID #14 caps 08/18/23 Unknown Rx monohydrate/macrocrystals 100 mg capsule (Macrobid) Allergy/AdvReac Type Severity Reaction Status Date / Time ibuprofen (From Motrin) AdvReac Intermediate Shortness Verified 09/11/23 15:39 of breath Family History Father Diabetes Heart disease Lung cancer smoker- agent orange Arthritis Cancer Mother High cholesterol Surgical History Status post hysterectomy (~10/17/21) Hx laparoscopic cholecystectomy Hx of bilateral cataract extraction History of carpal tunnel surgery of left wrist History of endometrial ablation History of gastric stapling History of History of tonsillectomy History of tubal ligation Social History Smoking Status: Never smoker alcohol intake: never substance use type: does not use caffeine: Yes what type of physical activity do you participate in: none seatbelt use: always do you feel safe at home: Yes additional social history: [employer] in [place] patient works at [employer] ROS ROS ED Constitutional Constitutional ED: Denies chills or fever(s) Eyes Eyes: Denies blurry vision or change in vision ENT ENT ED: Denies rhinorrhea or sore throat Cardiovascular Cardiovascular: Denies chest pain or palpitations Respiratory/Chest Respiratory/Chest: Denies cough or dyspnea Gastrointestinal Gastrointestinal: Reports nausea; Denies vomiting Genitourinary Genitourinary ED: Denies dysuria or hematuria Musculoskeletal Musculoskeletal: Reports back pain; Denies neck pain Integumentary Denies abscess or rash Neurologic Neurologic: Reports headache(s); Denies weakness Allergic/Immunologic Allergic/Immunologic ED: Denies mouth swelling or urticaria EXAM Physical Exam Const Vital Signs: 09/11/23 15:37 Temperature 98 F Temperature Source Temporal Pulse Rate 84 Respiratory Rate 16 Blood Pressure 147/84 H Blood Pressure Mean 105 Pulse Ox 99 Oxygen Delivery Method Room Air Positive well nourished and well developed General Appearance ED: well developed and NAD HEENT Reports moist mucous membranes normocephalic and atraumatic Neck full ROM Extremity Extremity Narrative: There is tenderness over the right popliteal fossa and calf. There is trace edema. There is no bony crepitance or step-off. There is no deformity noted. Range of motion was slightly limited in all motions of the right knee secondary to pain. Pedal pulses are equal bilaterally. Sensation was intact to light touch bilaterally in the lower extremities. Strength is 5/5 bilaterally in the lower extremities. Neuro oriented x3, CN's II-XII intact bilaterally, moves all extremities and no sensory deficits noted Sensorium / Orientation: alert Motor Exam: strength 5/5 throughout Psych mental status grossly normal MDM MDM MDM Narrative Medical decision making narrative: Differential diagnosis includes muscle strain, DVT, and superficial phlebitis. Venous duplex of the right lower extremity will be obtained to assess for DVT and superficial phlebitis. Radiography Diagnostic Testing: Venous duplex of the right lower extremity was obtained. There are varicosities. But there is no evidence of DVT or superficial thrombophlebitis. Treatment and Re-Evaluation Narrative: Patient was advised of her findings. Patient was instructed to ice and elevate the right leg. Patient was instructed to take Tylenol as needed for pain. Patient was instructed to follow-up with her primary care physician in 5 to 7 days. Patient understood and was agreeable with the plan. All questions were answered. Discharge Plan Triage Chief Complaint: Lower Extremity Injury ED Provider: Marck Sin Dx/Rx/DC Orders Clinical Impression: Muscle strain of right lower leg, Varicose veins of bilateral lower extremities with pain, Obesity Instructions: ED Muscle Strain, Extremity Prescriptions: No Action mecobalamin (vitamin B12) 10,000 mcg recon soln 10,000 mcg IM .once a month aspirin 81 mg tablet,delayed release (DR/EC) 81 mg PO DAILY clopidogrel [Plavix] 75 mg tablet 75 mg PO .daily Qty: 90 3RF cyanocobalamin (vitamin B-12) 1,000 mcg/mL solution See Rx Instructions .ROUTE .COMPLEX Qty: 3 3RF Dose Instruction: INJECT 1000 MCG (1ML) INTRAMUSCULARLY ONCE A MONTH Rx Instructions: INJECT 1000 MCG (1ML) INTRAMUSCULARLY ONCE A MONTH (DME) Easy Touch SheathLock Syrg-Ndl 3 mL 25 gauge x 1 syringe See Rx Instructions .Route Qty: 100 1RF Rx Instructions: As directed for B-12 injections fluoxetine 20 mg tablet 20 mg PO BID Qty: 180 0RF Rx Instructions: administer in the morning and at noon/midday nitrofurantoin monohyd/m-cryst [Macrobid] 100 mg capsule 100 mg PO BID Qty: 14 0RF Rx Instructions: must administer with a meal/food Primary Care Provider: Mynor Garcia Referrals: Mynor Garcia MD [Primary Care Provider] - 5-7 Days Print Language: Malay Disposition Disposition: Home, Self Care
[2023-09-11 16:55] VITALS: BP 127/66; PULSE 72; RESP 15; TEMP 36.3; O2SAT 99
== END 2023-09-11 16:57 | disposition home or self-care (01) ==
PROVIDERS: Emergency Provider Emergency Medicine; PCP Internal Medicine; Visit Provider Emergency Medicine
DX: S86.911A Strain of unspecified muscle(s) and tendon(s) at lower leg level, right leg, initial encounter (principal); I10 Essential (primary) hypertension; E78.5 Hyperlipidemia, unspecified; I83.813 Varicose veins of bilateral lower extremities with pain; E66.9 Obesity, unspecified; G47.33 Obstructive sleep apnea (adult) (pediatric); Z99.89 Dependence on other enabling machines and devices; Z79.02 Long term (current) use of antithrombotics/antiplatelets; Z79.82 Long term (current) use of aspirin; Z90.710 Acquired absence of both cervix and uterus; Z90.49 Acquired absence of other specified parts of digestive tract; Z98.41 Cataract extraction status, right eye; Z98.42 Cataract extraction status, left eye; Z98.51 Tubal ligation status
CPT/HCPCS: 93971; 99282

== ENCOUNTER → 2023-09-23 | Outpatient (CLI) | payer OTHER, SELFPAY ==
[2023-09-23 13:02] LABS: Vitamin B12 870 pg/mL (211-911); Vitamin D,25 Hydroxy 26.5 ng/mL
[2023-09-23 13:05] LABS: Absolute Neutrophil Count 5.1 X10^3/uL (2.0-7.7); Basophil# 0.03 X10^3/uL; Basophil% 0.4 % (0-1); Eosinophil# 0.09 X10^3/uL; Eosinophils% 1.2 % (0-5); Hematocrit 35.7 % (37-47); Hemoglobin 11.3 g/dL (12.0-15.0); Lymphocyte % 22.8 % (19-41); Mean Corp Hgb Conc 31.7 g/dL (32-36); Mean Corpuscular Hgb 27.1 pg (27.0-32.0); Mean Corpuscular Volume 85.6 fL (81-99); Monocyte# 0.49 X10^3/uL; Monocyte% 6.6 % (0-10); NRBC Flagged by Analyzer 0 % (0-5); Neutrophil # 5.13 X10^3/uL (2.7-7.7); Neutrophil % 68.6 % (47-70); Platelet Count 283 K/mm3 (150-450); RBC Distribution Width CV 13.6 % (11.6-14.6); RBC Distribution Width SD 42.5 fl (35.1-43.9); Red Blood Count 4.17 M/mm3 (4.2-5.4); White Blood Count 7.5 K/mm3 (4.4-11.0)
[2023-09-23 13:08] LABS: ALB/GLOB Ratio 0.8 RATIO (0.9-2.4); AST(SGOT) 18 U/L (15-37); Alanine Aminotransfer ALT/SGPT 22 U/L (13-56); Albumin, Serum 3.3 g/dL (3.2-5.0); Alkaline Phosphatase 131 U/L (45-117); Anion Gap 8 (5-15); BUN 14 mg/dL (7-18); BUN/Creat Ratio 15.7 RATIO (10-20); Calcium,Total 9.4 mg/dL (8.5-10.1); Chloride 110 mmol/L (98-107); Cholesterol 205 mg/dL (200); Creatinine, Serum 0.89 mg/dL (0.55-1.02); EST Glomerular Filtration Rate 72 mL/min (>60); Est Glom Filt Rate - Afr Amer 88 mL/min (>60); Globulin 4.3 g/dL (2.2-4.2); Glucose 91 mg/dL (74-106); High Density Lipoprotein 57 mg/dL; Potassium 3.9 mmol/L (3.5-5.1); Protein, Total 7.6 g/dL (6.4-8.2); Sodium Level 141 mmol/L (136-145); Thyroid Stim Hormone (TSH) 1.11 uIU/mL (0.358-3.74); Triglycerides 122 mg/dL; Very Low Density Lipoprotein 24 mg/dL (5-40)
[2023-09-23 13:43] LABS: Hemoglobin A1c 4.9 % (3.8-5.6)
[2023-09-24 14:10] LABS: Thyroglobulin Antibody < 1.0 IU/mL (0.0-0.9); Thyroid Peroxidase AB < 9 IU/mL (0-34)
== END | disposition home or self-care (01) ==
LOC: VSLAB 11:54
PROVIDERS: Visit Provider Nurse Practitioner Family
DX: E66.9 Obesity, unspecified (principal); E56.9 Vitamin deficiency, unspecified
CPT/HCPCS: 36415; 80053; 80061; 82306; 82607; 83036; 84443; 85025; 86376; 86800

== ENCOUNTER → 2023-11-16 | Outpatient (CLI) | payer OTHER, SELFPAY ==
--- NOTE | 2023-11-16 07:52 | AAVD_ITS ---
Reason For Study: s/p Rt Iliac Stent Inferior Vena Cava Proximal inferior vena cava measures 1.63cm x 2.23 cm. in the cross-sectional axis. Proximal inferior vena cava measures 1.61 cm. in the longitudinal axis. Mid inferior vena cava measures 1.87cm 2.63 cm. in the cross-sectional axis. Mid inferior vena cava measures 1.93 cm. in the longitudinal axis. Distal inferior vena cava measures 2.40cm x 2.77 cm. in the cross-sectional axis. Distal inferior vena cava measures 2.30 cm. in the longitudinal axis. The inferior vena cava has spontaneous, phasic flow throughout. Left Common Iliac Vein Left common iliac vein measures 1.32cm x 1.70 cm. in the cross-sectional axis. Left common iliac vein measures 1.28 cm. in the longitudinal axis. The left common iliac vein has spontaneous, phasic flow throughout. Right Common Iliac Vein Right common iliac vein measures 1.81cm x 1.66 cm. in the cross-sectional axis. Right common iliac vein measures 1.74 cm. in the longitudinal axis. The right common iliac vein has spontaneous, phasic flow throughout. Procedure Aorta IVC Iliac vasculature or bypass grafts [id number]. Exam performed in department. VL/Abd Aortic/IVC Duplex scan Interpretation Summary Patent inferior vena cava and left iliac vein with normal venous flow pattern. Patent right iliac vein stent with normal venous flow pattern. Ordering Physician: Marck Thompson Referring Physician: Andreas Calvert Performed By: Trisha Eubanks, RDCS, RVT
== END | disposition home or self-care (01) ==
LOC: CVS 07:50
PROVIDERS: PCP Nurse Practitioner Family; Referring Provider Surgery Trauma Surgery; Visit Provider Surgery Trauma Surgery
DX: I87.1 Compression of vein (principal)
CPT/HCPCS: 93978

== ENCOUNTER 2023-12-04 05:34 | Day surgery (SDC) | payer OTHER, SELFPAY ==
[2023-12-04] VITALS (7 sets, daily range): BP systolic 103–139; BP diastolic 50–94; PULSE 65–82; RESP 16; TEMP 36.1–36.5; O2SAT 100; BMI 44.7
--- NOTE | 2023-12-04 06:30 | EGD_PTH ---
PATIENT: FABIENNE FRANKS LOC: EN U#:[id number] AGE/SX: 48/F ROOM: RE12/04/[address]: Dr. Brian Zuniga DO : 1975 BED: DIS: 12/04/2023 SPEC #: [id number] RECD: 12/04/23 10:06 STATUS: CHATO GEORGIANA #: [id number] CARLY: 12/04/23 06:[address]: Brian Zuniga DEPT: SURGICAL PATHOLOGY RECD BY: Veronica Ramirez ENTERED: 12/04/23 11:24 SP TYPE: EGD BIOPSY OT DR: Andreas Calvert, ASSEMBLER SHOW MOTOR-C Tissues: A - Duodenum, NOS B - Gastric mucous membrane C - Esophagus, NOS D - Cecum, NOS E - COLON BIOPSY Procedures: Special Stain Group I Surgery Specimen Level IV Alcian Blue/PAS (control) HEADER OPERATION: Colonoscopy with biopsy, EGD with biopsy PRE-OP DIAGNOSIS: Abdominal symptoms TISSUE SUBMITTED: A- Duodenum biopsy, B- Gastric body biopsy, C- Distal esophagus biopsy, D- Cecum biopsy, E- Random colon biopsy MICROSCOPIC DIAGNOSIS A. Duodenum, biopsy: Fragments of duodenal mucosa with focal mild villous blunting and moderate non-specific chronic inflammation. B. Gastric body, biopsy: Mild gastritis. See microscopic description and comment. C. Distal esophagus, biopsy: A fragment of gastric mucosa with mild chronic inflammation. Intestinal metaplasia (goblet cell metaplasia) not identified. See comment. D. Cecum, biopsy: Fragments of colonic mucosa, no pathologic diagnosis. E. Colon, random biopsy: Fragments of colonic mucosa, no pathologic diagnosis. SHANNAN. 12/07/2023 COMMENT B. The results of immunohistochemistry for Helicobacter pylori will be reported separately ([id number]). C. Alcian blue/PAS stain with matched control is used in the evaluation of the specimen. Clinical correlation and appropriate follow-up are necessary. MICROSCOPIC DESCRIPTION Slides are reviewed. B. The specimen shows fragments of gastric mucosa with chronic inflammatory cell infiltrates in the lamina propria consisting of lymphocytes and plasma cells, consistent with mild chronic gastritis. GROSS DESCRIPTION A. Received in fixative is one container labeled with the patient's name and designated Duodenum biopsy. The specimen consists of multiple irregular fragments of light hdez soft tissue that in aggregate measure 1.0 x 0.5 x 0.1 cm. The specimen is totally submitted in one cassette. B. Received in fixative is one container labeled with the patient's name and designated Gastric body biopsy. The specimen consists of two irregular fragments of light hdez soft tissue that in aggregate measure 0.6 x 0.3 x 0.1 cm. The specimen is totally submitted in one cassette. C. Received in fixative is one container labeled with the patient's name and designated Distal esophagus biopsy. The specimen consists of one irregular fragment of light hdez soft tissue that measures 0.6 x 0.3 x 0.1 cm. The specimen is totally submitted in one cassette. D. Received in fixative is one container labeled with the patient's name and designated Cecum biopsy. The specimen consists of multiple irregular fragments of light hdez soft tissue that in aggregate measure 0.6 x 0.4 x 0.1 cm. The specimen is totally submitted in one cassette. E. Received in fixative is one container labeled with the patient's name and designated Random colon biopsy. The specimen consists of two irregular fragments of light hdez soft tissue that in aggregate measure 0.8 x 0.3 x 0.1 cm. The specimen is totally submitted in one cassette. SJ 12/04/2023 TC:3 CPT:76546q0,03363
--- NOTE | 2023-12-04 06:30 | IMM_PTH ---
PATIENT: FABIENNE FRANKS LOC: EN U#:[id number] AGE/SX: 48/F ROOM: RE12/04/[address]: Dr. Brian Zuniga DO : 1975 BED: DIS: 12/04/2023 SPEC #: [id number] RECD: 12/04/23 12:12 STATUS: CHATO REQ #: [id number] CARLY: 12/04/23 06:[address]: Brian Zuniga DEPT: IMMUNOHISTOCHEMISTRY RECD BY: Ernesto Anne ENTERED: 12/04/23 12:12 SP TYPE: IMMUNO OTHR DR: Andreas Calvert, DIESEL TRACTOR OPERATOR-C Tissues: B - Gastric mucous membrane Procedures: H Pylori (initial) PHYSICIAN & INSTITUTION [place] [address] SPECIMEN INFORMATION: Tissue Source: B- Gastric body biopsy Clinical Info: Abdominal symptoms Specimen Number: [id number] CPT code: 03085 METHODOLOGY: Deparaffinized sections of prefer/formalin-fixed tissue or PAP/DQ stained slides are incubated with monoclonal/polyclonal antibodies/oligonucleotide probes. Localization is made via biotin free immunoperoxidase method. Appropriate controls are performed and reacted as expected. Results on target cell population are indicated in the following table: RESULTS: ANTIBODY / CLONE RESULT Block B H Pylori (polyclonal) negative These tests were developed and their performance characteristics determined by [facility]. They may not have been cleared or approved by the U.S. Food and Drug Administration. The FDA has determined that such clearance or approval is not necessary. The above immunohistochemical/dualISH markers are ordered and reviewed by the Pathologist. INTERPRETATION: B. Gastric body, biopsy: Negative for Helicobacter pylori organisms. 12/07/2023
--- NOTE | 2023-12-04 06:35 | PRE.ANES_ITS ---
ASA Classification* ASA Classification ASA Classification: 3 Assessment & Plan Anesthesia* Anesthesia Assessment Anesthesia Assessment: Discussed sedation and/or anesthesia options, risks, benefits, and alternatives with patient/parents/legal guardian/POA. Questions invited. The patient/parents/legal guardian/POA seems to understand and agrees to proceed with anesthesia plan. Reviewed the physical assessment, medical history, allergy history and patient home medications list prior to surgery/procedure/anesthetic and documented any changes. Performed airway and anesthesia risk assessments. Anesthesia Type Anesthesia Type: MAC History Source History Obtained from:: Patient and Chart Anesthesia Focused Assessment* Temperature: 97 F Pulse Rate: 82 Blood Pressure: 139/94 Respiratory Rate: 16 Pulse Ox: 100 Airway Assessment Mouth opens: >3 cm Mallampati Score: II Teeth Condition: Intact Neck Range of motion (ROM): Full ROM Focused Labs Anesthesia Preop lab: CBC WBC 7.5 K/mm3 (4.4-11.0) 09/23/23 11:55 RBC 4.17 M/mm3 (4.2-5.4) L 09/23/23 11:55 Hgb 11.3 g/dL (12.0-15.0) L 09/23/23 11:55 Hct 35.7 % (37-47) L 09/23/23 11:55 Plt Count 283 K/mm3 (150-450) 09/23/23 11:55 CHEMISTRY Potassium 3.9 mmol/L (3.5-5.1) 09/23/23 11:55 Sodium 141 mmol/L (136-145) 09/23/23 11:55 Magnesium 2.2 mg/dL (1.6-2.6) 10/14/21 06:31 Phosphorus 3.0 mg/dL (2.5-4.9) 12/29/22 06:12 BUN 14 mg/dL (7-18) 09/23/23 11:55 Creatinine 0.89 mg/dL (0.55-1.02) 09/23/23 11:55 Glucose 91 mg/dL (74-106) 09/23/23 11:55 POC Glucose 77 mg/dL (74-106) 10/17/21 05:49 TSH 1.11 uIU/mL (0.358-3.74) 09/23/23 11:55 COAG PT 13.0 SECONDS (11.7-14.9) 10/14/21 06:31 Urine Test Negative Negative 10/17/21 05:40 Pre-Assessment Diagnosis/Proposed Procedure Planned Operative Procedure(s): COLONOSCOPY/EGD Anesthesia History Anesthesia History - deposit refund clerk: Anesthesia History - deposit refund clerk Hx Hospitalization No 12/02/23 09:45 Any Problems With Anesthesia No 12/02/23 09:45 Cholinesterase deficiency No 12/02/23 09:45 You/Your Family Experience No 12/02/23 09:45 fever (hyperthermia) with Relationship Recent Exposure to Contagious No 12/04/23 06:00 Disease Does patient have nerve No 12/02/23 09:45 stimulator Patient instructed to have device shut off --Does patient have Pacemaker No 12/04/23 06:00 or ICD? When Was Last Pacemaker Check QUESTION #4 FULL TEXT: You/Your Family Experience fever (hyperthermia) with Anesthesia Last Oral Intake Last Oral intake: Last Oral Intake NPO since 02:00 12/04/23 06:00 Meds taken in AM with sips of water? Meds patient instructed to take am of surgery PONV PONV - deposit refund clerk: PONV - deposit refund clerk Female Yes 12/02/23 09:45 HX of Motion Sickness Yes 12/02/23 09:45 HX of N/V After Surgery No 12/02/23 09:45 Non-Smoker Yes 12/02/23 09:45 Duration of Surgery greater No 12/02/23 09:45 than 60 minutes Number of Risk Factors 3 12/02/23 09:45 PONV Score Moderate Risk 12/02/23 09:45 Height & Weight Height & Weight: Anesthesia: Height & Weight Height 5 ft 5 in 12/04/23 06:00 Weight: 122.016 kg 12/04/23 06:00 Body Mass Index (BMI) 44.7 12/04/23 06:00 Respiratory Assessment Respiratory Assessment - deposit refund clerk: Respiratory Tract Infection Hx - deposit refund clerk Hx Respiratory Tract Infection No 12/02/23 09:45 STOP Sleep Apnea STOP Sleep Apnea - deposit refund clerk: STOP Sleep Apnea - deposit refund clerk Hx Hypertension No 12/02/23 09:45 Hx Sleep Apnea Yes: DOESN'T WEAR 12/02/23 09:45 CPAP Yes 12/02/23 09:45 BIPAP No 12/02/23 09:45 Do you snore loudly (louder than talking or can be heard Do you often feel tired/ fatigued/ sleepy during daytime? Has anyone observed you stop breathing during sleep? STOP Results Positive 12/02/23 09:45 QUESTION #5 FULL TEXT : Do you snore loudly (louder than talking or can be heard through closed doors)? Tobacco Use History Tobacco Use History - deposit refund clerk: Tobacco Use History - deposit refund clerk Tobacco Use Smoking Status Never smoker 12/02/23 09:45 Hx Tobacco Use No 12/02/23 09:45 Years Smoking Packs Smoked per Day Smoking Cessation Date was within the last 15 years Hx Smoking Cessation Date Hx Smoking Cessation Counseling Hematologic Medial History Hematologic Hx - deposit refund clerk: Hematologic Medical Hx - clinical documentation clerk Hx of Blood Transfusion No 12/02/23 09:45 Hx of Transfusion in last 3 No 12/02/23 09:45 Months Date of Last Transfusion (if within last 3 months) Ever experience any problems No 12/02/23 09:45 with transfusion(s)? Specify any problems Hx of Preganancy in last 3 No 12/02/23 09:45 Months Nurse Filling Out Transfusion VCHRISTIN 12/02/23 09:45 & Questions: Date: 12/02/23 12/02/23 09:45 Time: 09:46 12/02/23 09:45 Patient unable to answer at this time (ie. confused, unrespo /Reproduction History /Reproductive History - deposit refund clerk: /Reproductive Hx- deposit refund clerk Hx Now Gestational Age (in weeks): EDC: Hx Hx Para Hx Section SAB No 12/02/23 09:45 PFSH Medical History Lung nodules Preventative health care Colon cancer screening UTI (urinary tract infection) CHRISTIANA (obstructive sleep apnea) Chronic fatigue Lung nodule seen on imaging study Family history of early CAD Generalized anxiety disorder Hyperlipidemia Hypertension Arthritis Anemia Migraine headache Seizures Non-smoker CPAP (continuous positive airway pressure) dependence Sleep apnea Leg cramps History of pain when walking History of edema Abnormal uterine bleeding Tiredness Weight loss Back pain Neck pain Varicose veins of both lower extremities Hair loss disorder Chronic back pain Obesity Vitamin B12 deficiency Home Medications ?Medication ?Instructions ?Recorded ?Last Taken ?Type syringe with needle, safety 3 mL #100 ea 03/18/23 Unknown Rx 25 gauge x 1 (Easy Touch SheathLock Syringe with Needle) aspirin 81 mg tablet,delayed 81 mg PO DAILY 05/20/23 11/30/23 History release bupropion HCl 100 mg tablet,12 hr 100 mg PO QDAY 11/12/23 Unknown History sustained-release (Wellbutrin SR) clopidogrel 75 mg tablet (Plavix) 75 mg PO DAILY 12/02/23 11/30/23 History cyanocobalamin (vitamin B-12) 1,000 mcg subcut QMONTH 12/02/23 Unknown History 1,000 mcg/mL injection solution Allergy/AdvReac Type Severity Reaction Status Date / Time ibuprofen (From Motrin) AdvReac Intermediate Shortness Verified 12/04/23 06:00 of breath Family History Father Diabetes Heart disease Lung cancer smoker- agent orange Arthritis Cancer Mother High cholesterol Surgical History Hx of hysterectomy Hx of surgical procedure Status post hysterectomy (~10/17/21) Hx laparoscopic cholecystectomy Hx of bilateral cataract extraction History of carpal tunnel surgery of left wrist History of endometrial ablation History of gastric stapling History of History of tonsillectomy History of tubal ligation Social History Smoking Status: Never smoker alcohol intake: never substance use type: does not use caffeine: Yes what type of physical activity do you participate in: none seatbelt use: always do you feel safe at home: Yes additional social history: [employer] in [place] patient works at [employer] Review of Systems (Anesthesia) ROS Narrative System reviewed and no additional complaints, except as documented.
--- NOTE | 2023-12-04 06:48 | HP.PCM_ITS ---
History and Physical Date of Admission: 12/04/23 FABIENNE FRANKS, is a 48 F who presents to the office today for establishment with [facility]. She has PMHx pertinent for lung nodules, CHRISTIANA, HTN, HLD, urge and stress incontinence, chronic back pain and B12 deficiency. On interview, she tells me she has had multiple abdominal surgeries most recently a hysterectomy in 2021. Since then she has been having GI symptoms with constipation and sharp abdominal pains. She feels it is a GI concern rather than gynecologic. The pain happens periodically but mostly right before she needs to have a bowel movement. She has 1-2 bowel movements per week and this is normal for her. She has never tried medications for constipation. She has never had a colonoscopy. She denies diarrhea or blood in her stool. She has occasional dysphagia to solids and liquids. She feels like food will get stuck. Her throat will make a 'noise' and she will have to drink water for the food to pass. She has a surgical hx of sleeve gastrectomy in 2018. She did have an EGD before this surgery which did not have abnormalities. She denies n/v or heartburn. ROS Const Constitutional: Positive for fatigue, fever(s), headache(s), weakness and weight change (weight gain) ENT ENT: Positive for headache(s) and difficulty swallowing Cardio Cardiology: Positive for leg pain with exertion Gastro GI: Positive for abdominal pain, bloating, constipation, difficulty swallowing and excessive flatus; No belching, change in bowel habits, change in stool character, coffee ground emesis, cramping, diarrhea, heartburn, feeling full early, incontinent of stools, Vomiting blood/hematemesis, Blood in stool, loose stools, Black,tarry stools, nausea/dyspepsia, pain with swallowing, vomiting or other Musc Musculoskeletal: Positive for joint pain, back pain, joint swelling, muscle weakness, numbness, stiffness, tingling, leg pain at night and leg pain with exertion Skin Skin: No yellowing of the eye or itchy eyes Neuro Neurology: Positive for weakness, headache(s), numbness and tingling Psych Psychiatric: Positive for anxiety and Positive for depression Endo Endocrine: Positive for fatigue and weight change (weight gain) Aller/Imm Allergy/Immunologic: No itchy eyes Isael/Lymp Hematologic/Lymphatic: No easy bleeding or easy bruising Exam Const General: cooperative and comfortable Nutritional Appearance: average body habitus and well nourished [facility] Head: normal to inspection Ears: hearing grossly normal bilaterally Nose: external nose normal Face and sinus: normal facial exam Eyes General: appearance normal, both eyes and all related structures Neck Neck: normal visual inspection Chest Chest palpation & inspection: normal inspection of the chest Resp Effort & Inspection: normal respiratory effort and able to speak in complete sentences Cardio Palpation: normal PMI GI Inspection: normal to inspection Auscultation: normal bowel sounds Percussion: normal to percussion Palpation: no hepatosplenomegaly Skin General: no rashes or lesions noted Neuro General: patient alert Extrem General: normal to inspection Psych Affect: normal affect Assessment and Plan Assessment and Plan (1) Abdominal symptoms: Plan: Patient is here today for establishment with [facility]. She has been having persistent constipation and sharp abdominal pains since her hysterectomy in 2021. She has had numerous abdominal surgeries. No hx of colonoscopies. Patient is right at the screening age for colon cancer and she is having constipation so she will have a colonoscopy. She also has complaints of dysphagia to solids an liquids. Her last EGD was prior to sleeve gastrectomy in 2018. She will be scheduled for an EGD as well. I will order blood work and stool tests to rule out inflammation, infection or autoimmune conditions. In the future we will consider further testing with CT scan to look for structural abnormalities that may be attributing to her pain and constipation. In the meantime, she will start taking miralax and fiber supplement every other day. She is agreeable to this plan. -EGD and colonoscopy -blood work and stool tests -miralax and fiber every other day -f/u in 3 months Orders: Orders CBC W/Diff, Automated Today R10.9 - Unspecified abdominal pain Comprehensive Metabolic Profil Today R10.9 - Unspecified abdominal pain Erythrocyte Sed Rate Today R10.9 - Unspecified abdominal pain CRP Today R10.9 - Unspecified abdominal pain IBD Expanded Profile Today R10.9 - Unspecified abdominal pain Celiac Disease Profile Today R10.9 - Unspecified abdominal pain Allergen, Food Profile 14 Today R10.9 - Unspecified abdominal pain PRIMO Comprehensive Panel Today R10.9 - Unspecified abdominal pain ANCA Today R10.9 - Unspecified abdominal pain Calprotectin, Stool Today R10.9 - Unspecified abdominal pain Stool Lactoferrin/WBC Today K58.9 - Irritable bowel syndrome without diarrhea, R10.9 - Unspecified abdominal pain Pancreatic Elastase, Fecal Today R10.9 - Unspecified abdominal pain Immunoglobulins G/A/M/E Today R10.9 - Unspecified abdominal pain I have examined the patient and the H&P has been reviewed. There are no clinical changes since date of exam.
--- NOTE | 2023-12-04 07:10 | PRE.ANES_ITS ---
ASA Classification* ASA Classification ASA Classification: 3 Assessment & Plan Anesthesia* Anesthesia Assessment Anesthesia Assessment: Discussed sedation and/or anesthesia options, risks, benefits, and alternatives with patient/parents/legal guardian/POA. Questions invited. The patient/parents/legal guardian/POA seems to understand and agrees to proceed with anesthesia plan. Reviewed the physical assessment, medical history, allergy history and patient home medications list prior to surgery/procedure/anesthetic and documented any changes. Performed airway and anesthesia risk assessments. Anesthesia Type Anesthesia Type: MAC (see written pre anesthesia record for full assessment) Anesthesia Focused Assessment* Temperature: 97 F Pulse Rate: 82 Blood Pressure: 139/94 Respiratory Rate: 16 Pulse Ox: 100 Airway Assessment Mouth opens: >3 cm Mallampati Score: III Focused Labs Anesthesia Preop lab: CBC WBC 7.5 K/mm3 (4.4-11.0) 09/23/23 11:55 RBC 4.17 M/mm3 (4.2-5.4) L 09/23/23 11:55 Hgb 11.3 g/dL (12.0-15.0) L 09/23/23 11:55 Hct 35.7 % (37-47) L 09/23/23 11:55 Plt Count 283 K/mm3 (150-450) 09/23/23 11:55 CHEMISTRY Potassium 3.9 mmol/L (3.5-5.1) 09/23/23 11:55 Sodium 141 mmol/L (136-145) 09/23/23 11:55 Magnesium 2.2 mg/dL (1.6-2.6) 10/14/21 06:31 Phosphorus 3.0 mg/dL (2.5-4.9) 12/29/22 06:12 BUN 14 mg/dL (7-18) 09/23/23 11:55 Creatinine 0.89 mg/dL (0.55-1.02) 09/23/23 11:55 Glucose 91 mg/dL (74-106) 09/23/23 11:55 POC Glucose 77 mg/dL (74-106) 10/17/21 05:49 TSH 1.11 uIU/mL (0.358-3.74) 09/23/23 11:55 COAG PT 13.0 SECONDS (11.7-14.9) 10/14/21 06:31 Urine Test Negative Negative 10/17/21 05:40 Pre-Assessment Diagnosis/Proposed Procedure Planned Operative Procedure(s): COLONOSCOPY/EGD Anesthesia History Anesthesia History - manufacturing engineering technologist: Anesthesia History - manufacturing engineering technologist Hx Hospitalization No 12/02/23 09:45 Any Problems With Anesthesia No 12/02/23 09:45 Cholinesterase deficiency No 12/02/23 09:45 You/Your Family Experience No 12/02/23 09:45 fever (hyperthermia) with Relationship Recent Exposure to Contagious No 12/04/23 06:00 Disease Does patient have nerve No 12/02/23 09:45 stimulator Patient instructed to have device shut off --Does patient have Pacemaker No 12/04/23 06:00 or ICD? When Was Last Pacemaker Check QUESTION #4 FULL TEXT: You/Your Family Experience fever (hyperthermia) with Anesthesia Last Oral Intake Last Oral intake: Last Oral Intake NPO since 02:00 12/04/23 06:00 Meds taken in AM with sips of water? Meds patient instructed to take am of surgery PONV PONV - manufacturing engineering technologist: PONV - manufacturing engineering technologist Female Yes 12/02/23 09:45 HX of Motion Sickness Yes 12/02/23 09:45 HX of N/V After Surgery No 12/02/23 09:45 Non-Smoker Yes 12/02/23 09:45 Duration of Surgery greater No 12/02/23 09:45 than 60 minutes Number of Risk Factors 3 12/02/23 09:45 PONV Score Moderate Risk 12/02/23 09:45 Height & Weight Height & Weight: Anesthesia: Height & Weight Height 5 ft 5 in 12/04/23 06:00 Weight: 122.016 kg 12/04/23 06:00 Body Mass Index (BMI) 44.7 12/04/23 06:00 Respiratory Assessment Respiratory Assessment - manufacturing engineering technologist: Respiratory Tract Infection Hx - manufacturing engineering technologist Hx Respiratory Tract Infection No 12/02/23 09:45 STOP Sleep Apnea STOP Sleep Apnea - manufacturing engineering technologist: STOP Sleep Apnea - manufacturing engineering technologist Hx Hypertension No 12/02/23 09:45 Hx Sleep Apnea Yes: DOESN'T WEAR 12/02/23 09:45 CPAP Yes 12/02/23 09:45 BIPAP No 12/02/23 09:45 Do you snore loudly (louder than talking or can be heard Do you often feel tired/ fatigued/ sleepy during daytime? Has anyone observed you stop breathing during sleep? STOP Results Positive 12/02/23 09:45 QUESTION #5 FULL TEXT : Do you snore loudly (louder than talking or can be heard through closed doors)? Tobacco Use History Tobacco Use History - manufacturing engineering technologist: Tobacco Use History - manufacturing engineering technologist Tobacco Use Smoking Status Never smoker 12/02/23 09:45 Hx Tobacco Use No 12/02/23 09:45 Years Smoking Packs Smoked per Day Smoking Cessation Date was within the last 15 years Hx Smoking Cessation Date Hx Smoking Cessation Counseling Hematologic Medial History Hematologic Hx - manufacturing engineering technologist: Hematologic Medical Hx - expeller operator Hx of Blood Transfusion No 12/02/23 09:45 Hx of Transfusion in last 3 No 12/02/23 09:45 Months Date of Last Transfusion (if within last 3 months) Ever experience any problems No 12/02/23 09:45 with transfusion(s)? Specify any problems Hx of Preganancy in last 3 No 12/02/23 09:45 Months Nurse Filling Out Transfusion VCHRISTIN 12/02/23 09:45 & Questions: Date: 12/02/23 12/02/23 09:45 Time: 09:46 12/02/23 09:45 Patient unable to answer at this time (ie. confused, unrespo /Reproduction History /Reproductive History - manufacturing engineering technologist: /Reproductive Hx- manufacturing engineering technologist Hx Now Gestational Age (in weeks): EDC: Hx Hx Para Hx Section SAB No 12/02/23 09:45 PFSH Medical History Lung nodules Preventative health care Colon cancer screening UTI (urinary tract infection) CHRISTIANA (obstructive sleep apnea) Chronic fatigue Lung nodule seen on imaging study Family history of early CAD Generalized anxiety disorder Hyperlipidemia Hypertension Arthritis Anemia Migraine headache Seizures Non-smoker CPAP (continuous positive airway pressure) dependence Sleep apnea Leg cramps History of pain when walking History of edema Abnormal uterine bleeding Tiredness Weight loss Back pain Neck pain Varicose veins of both lower extremities Hair loss disorder Chronic back pain Obesity Vitamin B12 deficiency Home Medications ?Medication ?Instructions ?Recorded ?Last Taken ?Type syringe with needle, safety 3 mL #100 ea 03/18/23 Unknown Rx 25 gauge x 1 (Easy Touch SheathLock Syringe with Needle) aspirin 81 mg tablet,delayed 81 mg PO DAILY 05/20/23 11/30/23 History release bupropion HCl 100 mg tablet,12 hr 100 mg PO QDAY 11/12/23 Unknown History sustained-release (Wellbutrin SR) clopidogrel 75 mg tablet (Plavix) 75 mg PO DAILY 12/02/23 11/30/23 History cyanocobalamin (vitamin B-12) 1,000 mcg subcut QMONTH 12/02/23 Unknown History 1,000 mcg/mL injection solution Allergy/AdvReac Type Severity Reaction Status Date / Time ibuprofen (From Motrin) AdvReac Intermediate Shortness Verified 12/04/23 06:00 of breath Family History Father Diabetes Heart disease Lung cancer smoker- agent orange Arthritis Cancer Mother High cholesterol Surgical History Hx of hysterectomy Hx of surgical procedure Status post hysterectomy (~10/17/21) Hx laparoscopic cholecystectomy Hx of bilateral cataract extraction History of carpal tunnel surgery of left wrist History of endometrial ablation History of gastric stapling History of History of tonsillectomy History of tubal ligation Social History Smoking Status: Never smoker alcohol intake: never substance use type: does not use caffeine: Yes what type of physical activity do you participate in: none seatbelt use: always do you feel safe at home: Yes additional social history: [employer] [place] in [place] patient works at [employer] Review of Systems (Anesthesia) ROS Narrative System reviewed and no additional complaints, except as documented.
--- NOTE | 2023-12-04 07:31 | OP.CCLET_ITS ---
12/04/2023 Andreas Calvert [facility], Security Systems Sales Representative-c Re : Upper GI endoscopy procedure for Yelena Caceres Dear Nehal This procedure was performed on Monday, December 04, 2023. My impressions and recommendations are as follows: Impressions : - Z-line irregular, 40 cm from the incisors. Biopsied. - Small hiatal hernia. - Chronic gastritis. Biopsied. - A sleeve gastrectomy was found, characterized by healthy appearing mucosa. - Erythematous duodenopathy. Biopsied. Recommendations : - Await pathology results. - Continue present medications. My findings are described in the full procedure note, which is enclosed. If I can be of further assistance, please feel free to contact me at . Sincerely, Brian Zuniga, 12/04/2023 7:30:34 AM This report has been signed electronically.
--- NOTE | 2023-12-04 07:31 | OP.EGD_ITS ---
Patient Name: Yelena Caceres Procedure Date: 12/04/2023 6:09 AM Date of : 1975 Age: 48 Procedure: Upper GI endoscopy Indications: Epigastric abdominal pain, Functional Dyspepsia Providers: Brian Zuniga DO Medicines: Monitored Anesthesia Care Patient Profile: This is a 48 year old female. Refer to note in patient chart for documentation of history and physical. Patient has symptoms of chronic abdominal cramping and chronic epigastric abdominal pain. She is status post laparoscopic sleeve gastrectomy within the past several years. Complications: No immediate complications. Procedure: Pre-Anesthesia Assessment: - Prior to the procedure, a History and Physical was performed, and patient medications and allergies were reviewed. The patient is competent. The risks and benefits of the procedure and the sedation options and risks were discussed with the patient. All questions were answered and informed consent was obtained. Patient identification and proposed procedure were verified by the physician in the pre-procedure area. Mental Status Examination: alert and oriented. Airway Examination: normal oropharyngeal airway and neck mobility. Respiratory Examination: clear to auscultation. CV Examination: normal. Prophylactic Antibiotics: The patient does not require prophylactic antibiotics. Prior Anticoagulants: The patient has taken no anticoagulant or antiplatelet agents except for NSAID medication. ASA Grade Assessment: II - A patient with mild systemic disease. After reviewing the risks and benefits, the patient was deemed in satisfactory condition to undergo the procedure. The anesthesia plan was to use monitored anesthesia care (MAC). Immediately prior to administration of medications, the patient was re-assessed for adequacy to receive sedatives. The heart rate, respiratory rate, oxygen saturations, blood pressure, adequacy of pulmonary ventilation, and response to care were monitored throughout the procedure. The physical status of the patient was re-assessed after the procedure. After obtaining informed consent, the endoscope was passed under direct vision. Throughout the procedure, the patient's blood pressure, pulse, and oxygen saturations were monitored continuously. The Colonoscope was introduced through the mouth, and advanced to the second part of duodenum. The upper GI endoscopy was accomplished without difficulty. The patient tolerated the procedure well. Scope In: 7:02:03 AM Scope Out: 7:06:51 AM Total Procedure Duration Time 0 hours 4 minutes 48 seconds Findings: The Z-line was irregular and was found 40 cm from the incisors. Biopsies were taken with a cold forceps for histology. Biopsies were taken with a cold forceps for histology. Verification of patient identification for the specimen was done. Estimated blood loss was minimal. A small hiatal hernia was present. Patchy mild inflammation characterized by erythema was found in the gastric body. Biopsies were taken with a cold forceps for histology. Verification of patient identification for the specimen was done. Estimated blood loss was minimal. Biopsies were taken with a cold forceps for Helicobacter pylori testing. Verification of patient identification for the specimen was done. Estimated blood loss was minimal. Evidence of a sleeve gastrectomy was found in the gastric body. This was characterized by healthy appearing mucosa. Patchy mildly erythematous mucosa without active bleeding and with no stigmata of bleeding was found in the duodenal bulb. Biopsies were taken with a cold forceps for histology. Impression: - Z-line irregular, 40 cm from the incisors. Biopsied. - Small hiatal hernia. - Chronic gastritis. Biopsied. - A sleeve gastrectomy was found, characterized by healthy appearing mucosa. - Erythematous duodenopathy. Biopsied. Recommendation: - Await pathology results. - Continue present medications. Procedure Code(s): --- Professional --- 54401, Esophagogastroduodenoscopy, flexible, transoral; with biopsy, single or multiple CPT copyright 2021 [employer]. All rights reserved. The codes documented in this report are preliminary and upon medical insurance coder review may be revised to meet current compliance requirements. Brian Zuniga DO 12/04/2023 7:30:34 AM This report has been signed electronically. Number of Addenda: 0 Note Initiated On: 12/04/2023 6:09 AM
--- NOTE | 2023-12-04 07:33 | OP.CCLET_ITS ---
12/04/2023 Andreas Calvert [facility], Glass Production Machine Operator-c Re : Colonoscopy procedure for Yelena Caceres Dear Nehal This procedure was performed on Monday, December 04, 2023. My impressions and recommendations are as follows: Impressions : - Diverticulosis in the recto-sigmoid colon and in the sigmoid colon. - Congested mucosa in the sigmoid colon, at the splenic flexure, at the hepatic flexure and in the cecum. Biopsied. Recommendations : - Discharge patient to home. - Resume previous diet. - Continue present medications. - Await pathology results. - Repeat colonoscopy in 10 years for screening purposes. My findings are described in the full procedure note, which is enclosed. If I can be of further assistance, please feel free to contact me at . Sincerely, Brian Zuniga, 12/04/2023 7:33:02 AM This report has been signed electronically.
--- NOTE | 2023-12-04 07:33 | OP.COLON_ITS ---
Patient Name: Yleena Caceres Procedure Date: 12/04/2023 7:07 AM Date of : 1975 Age: 48 Procedure: Colonoscopy Indications: Screening for colorectal malignant neoplasm Providers: Brian Zuniga DO Medicines: Monitored Anesthesia Care Patient Profile: This is a 48 year old female. Refer to note in patient chart for documentation of history and physical. Patient has symptoms of chronic abdominal cramping and chronic epigastric abdominal pain. She is status post laparoscopic sleeve gastrectomy within the past several years. Last Colonoscopy: none. The patient's first colonoscopy is today. Complications: No immediate complications. Procedure: Pre-Anesthesia Assessment: - Prior to the procedure, a History and Physical was performed, and patient medications and allergies were reviewed. The patient is competent. The risks and benefits of the procedure and the sedation options and risks were discussed with the patient. All questions were answered and informed consent was obtained. Patient identification and proposed procedure were verified by the physician in the pre-procedure area. Mental Status Examination: alert and oriented. Airway Examination: normal oropharyngeal airway and neck mobility. Respiratory Examination: clear to auscultation. CV Examination: normal. Prophylactic Antibiotics: The patient does not require prophylactic antibiotics. Prior Anticoagulants: The patient has taken no anticoagulant or antiplatelet agents except for NSAID medication. ASA Grade Assessment: II - A patient with mild systemic disease. After reviewing the risks and benefits, the patient was deemed in satisfactory condition to undergo the procedure. The anesthesia plan was to use monitored anesthesia care (MAC). Immediately prior to administration of medications, the patient was re-assessed for adequacy to receive sedatives. The heart rate, respiratory rate, oxygen saturations, blood pressure, adequacy of pulmonary ventilation, and response to care were monitored throughout the procedure. The physical status of the patient was re-assessed after the procedure. After I obtained informed consent, the scope was passed under direct vision. Throughout the procedure, the patient's blood pressure, pulse, and oxygen saturations were monitored continuously. The Colonoscope was introduced through the anus and advanced to the terminal ileum. The colonoscopy was performed without difficulty. The patient tolerated the procedure well. The quality of the bowel preparation was adequate. The ileocecal valve, appendiceal orifice, and rectum were photographed. Scope In: 7:10:26 AM Scope Withdrawal Time 0 hours 10 minutes 48 seconds Scope Out: 7:23:30 AM Total Procedure Duration Time 0 hours 13 minutes 4 seconds Findings: The perianal and digital rectal examinations were normal. A few small-mouthed diverticula were found in the recto-sigmoid colon and sigmoid colon. An area of mildly congested mucosa was found in the sigmoid colon, at the splenic flexure, at the hepatic flexure and in the cecum. Biopsies were taken with a cold forceps for histology. Verification of patient identification for the specimen was done. Estimated blood loss was minimal. Impression: - Diverticulosis in the recto-sigmoid colon and in the sigmoid colon. - Congested mucosa in the sigmoid colon, at the splenic flexure, at the hepatic flexure and in the cecum. Biopsied. Recommendation: - Discharge patient to home. - Resume previous diet. - Continue present medications. - Await pathology results. - Repeat colonoscopy in 10 years for screening purposes. Procedure Code(s): --- Professional --- 54825, Colonoscopy, flexible; with biopsy, single or multiple CPT copyright 2021 [employer]. All rights reserved. The codes documented in this report are preliminary and upon hand zipper trimmer review may be revised to meet current compliance requirements. Brian Zuniga DO 12/04/2023 7:33:02 AM This report has been signed electronically. Number of Addenda: 0 Note Initiated On: 12/04/2023 7:07 AM
--- NOTE | 2023-12-04 07:39 | PCM.POST.ANE ---
Anesthesia: Postop Eval I Current Vital Signs Temperature: 97.7 F Pulse Rate: 72 Blood Pressure: 103/50 Respiratory Rate: 16 Pulse Ox: 100 Oxygen Delivery Method: Room Air Assessment Airway patent: Yes Spontaneous unlabored respirations: Yes Mental status: Awake and Calm nausea: No Vomiting: No Anesthesia Complication: No Fluid Hydration Crystalloid volume administer (ml): 700 Total IV fluid infused: 700 Progress Note Anesthesia document: Postop Eval 1 completed: Yes
--- NOTE | 2023-12-04 07:42 | PCM.POSTANE2 ---
Anesthesia Postop Eval I Sum Postop Eval Completion status Anesthesia document: Postop Eval 1 completed: Yes Anesthesia Postop Eval I Summary Anesthesia Postop Eval I Summary: Anesthesia Postop Eval I: Assessment Summary Airway patent Yes 12/04/23 07:40 [email or web address] Spontaneous unlabored Yes 12/04/23 07:40 [email or web address] respirations Mental status Awake,Calm 12/04/23 07:40 [email or web address] nausea No 12/04/23 07:40 [email or web address] Vomiting No 12/04/23 07:40 [email or web address] Anesthesia Postop Eval I: Fluid Summary Crystalloid volume administer 700 12/04/23 07:40 [email or web address] (ml) Colloids volume administered ( ml) Blood Product volume administered (ml) Total IV fluid infused 700 12/04/23 07:40 [email or web address] Anesthesia Postop Eval I: Summary Notes Anesthesia Complication No 12/04/23 07:40 [email or web address] Anesthesia Complication Comment: Post-operative progress note Anesthesia: Postop Eval II Evaluation Mental status: Awake Pain Level: 0 nausea: No Vomiting: No
== END 2023-12-04 08:17 | disposition home or self-care (01) ==
LOC: EN 05:39 → AC 05:40
PROVIDERS: PCP Nurse Practitioner Family; Referring Provider Nurse Practitioner Family; Visit Provider Internal Medicine Gastroenterology
PROC: 0DJD8ZZ Inspection of Lower Intestinal Tract, Via Natural or Artificial Opening Endoscopic (ICD-10-PCS; CPT 45378; principal; 2023-12-04 06:25)
DX: R10.9 Unspecified abdominal pain (principal); K44.9 Diaphragmatic hernia without obstruction or gangrene; K57.30 Diverticulosis of large intestine without perforation or abscess without bleeding; K29.50 Unspecified chronic gastritis without bleeding; K63.89 Other specified diseases of intestine; Z90.710 Acquired absence of both cervix and uterus; Z90.3 Acquired absence of stomach [part of]; I10 Essential (primary) hypertension; E78.5 Hyperlipidemia, unspecified; K59.00 Constipation, unspecified; R13.10 Dysphagia, unspecified; K31.89 Other diseases of stomach and duodenum; K22.89 Other specified disease of esophagus
CPT/HCPCS: 45380; 43239; 88305; 88312; 88342; A4216; J2405

== ENCOUNTER 2024-01-31 17:31 | Inpatient (IN) | payer OTHER, SELFPAY ==
[2024-01-31] VITALS (14 sets, daily range): BP systolic 139–166; BP diastolic 82–112; PULSE 20–140; RESP 14–35; TEMP 36.2–36.6; O2SAT 95–100; BMI 44.4; BMI 43.3
[2024-01-31] MEDS: Epi Pen (EQUIV) 0.3 MG Syringe IM (17:38)
[2024-01-31] MEDS: Etomidate 20 MG/10 ML Vial IV ×2 (17:49→17:58)
[2024-01-31] MEDS: DiphenhydrAMINE 50 MG/ML Syringe IV ×2 (17:50→23:17)
[2024-01-31] MEDS: 0.9% Normal Saline (1000mL) 1,000 ML 999 ML IV (17:50)
[2024-01-31] MEDS: Epinephrine (1 mg/ml) 1 MG in 0.9% Normal Saline (250mL Bag) 250 ML 30.1 MG IV (17:52)
[2024-01-31] MEDS: Famotidine 200 MG/20 ML MDV 20 MG in 0.9% Normal Saline (Pres. free 8 ML 300 MG IV ×2 (17:55→23:15)
[2024-01-31] MEDS: Succinylcholine Chloride 200 MG/10 ML SYRINGE 100 MG IV (17:58)
[2024-01-31] MEDS: MethylPREDNISolone 125 MG/2 ML Vial IV (17:58)
[2024-01-31] MEDS: Propofol 10MG/Ml 1,000 MG/100 ML Bottle 7.5 MG CONT INF (18:04)
--- NOTE | 2024-01-31 18:05 | CM.ED ---
Social Work: Date of referral: 01/31/24 Reason for referral: Airway alert plant operations worker met with patient's daughter Theresa who was in the hallway while staff worked with patient to secure airway. Theresa was alone and tearful and social sciences chair provided support and got Theresa to the waiting room which was empty and more private. plant operations worker provided emotional support and comfort until Theresa's father arrived. Theresa denied needing anything additional at this time. Allie Benjamin, AUDIO DIRECTOR, MATTRESS PACKER
[2024-01-31 18:09] LABS: Absolute Lymphocyte Count 2.96 X10^3/uL (0.83-4.51); Absolute Neutrophil Count 3.8 X10^3/uL (2.0-7.7); Basophil# 0.02 X10^3/uL; Basophil% 0.3 % (0-1); Eosinophil# 0.08 X10^3/uL; Eosinophils% 1.1 % (0-5); Hematocrit 38.5 % (37-47); Hemoglobin 12.8 g/dL (12.0-15.0); Lymphocyte # 2.96 X10^3/ul (0.83-4.51); Lymphocyte % 40.2 % (19-41); Mean Corp Hgb Conc 33.2 g/dL (32-36); Mean Corpuscular Hgb 28.1 pg (27.0-32.0); Mean Corpuscular Volume 84.6 fL (81-99); Mean Platelet Vol. 9.8 fl (6.2-12.0); Monocyte# 0.46 X10^3/uL; Monocyte% 6.2 % (0-10); NRBC Flagged by Analyzer 0 % (0-5); Neutrophil # 3.81 X10^3/uL (2.7-7.7); Neutrophil % 51.7 % (47-70); Platelet Count 336 K/mm3 (150-450); RBC Distribution Width CV 14.1 % (11.6-14.6); RBC Distribution Width SD 43.3 fl (35.1-43.9); Red Blood Count 4.55 M/mm3 (4.2-5.4); White Blood Count 7.4 K/mm3 (4.4-11.0)
--- NOTE | 2024-01-31 18:10 | RAD_ITS ---
EXAM: XR CHEST, 1 VIEW CLINICAL INDICATION: Respiratory failure due to allergic/anaphylactic r TECHNIQUE: Frontal view of the chest. COMPARISON: No relevant prior studies available. FINDINGS: LUNGS AND PLEURAL SPACES: Pulmonary opacities in the left lung likely indicating pneumonia or atelectasis. No pneumothorax. No effusion. HEART: No significant abnormality. Cardiac silhouette not enlarged. MEDIASTINUM: Central airways and mediastinal contour are unremarkable. BONES/JOINTS: No significant abnormality. No acute fracture. SOFT TISSUES: No significant abnormality. TUBES, LINES AND DEVICES: The endotracheal tube tip is high, approximately 6.4 cm above the lindsey. RAD/Chest 1 View (Portable) IMPRESSION: 1. The endotracheal tube tip is high, approximately 6.4 cm above the lindsey. Consider advancing approximately 2 to 3 cm. 2. Pulmonary opacities in the left lung likely indicating pneumonia or atelectasis. Electronically Signed: Ian Kenyon DO at 18:28 EST ,
--- NOTE | 2024-01-31 18:19 | EDS_ITS ---
HPI History of Present Illness Chief Complaint: Allergic Reaction Detail of Chief Complaint: Allergic reaction Informant: patient and family Onset/Context/Timing Onset: Hours Context: Sudden Onset Timing: Continuous Quality: Anaphylactic reaction and allergic angioedema. Location: Generalized Current Severity: Severe Maximum Severity: Severe Worsened by: Unknown Relieved by: Nothing Associated Symptoms Associated Symptoms: Airway obstruction Narrative Narrative: patient is a 48-year-old woman. 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 Apparently this has happened before when she has gone to [facility]. Unable to understand when patient arrived. She had obvious angioedema with a Mallampati score of 4. History is limited. Prior similar symptoms: Yes Recent Illness/Hospitalization: No PFSH PFS Medical History Lung nodules Preventative health care Colon cancer screening UTI (urinary tract infection) CHRISTIANA (obstructive sleep apnea) Chronic fatigue Lung nodule seen on imaging study Family history of early CAD Generalized anxiety disorder Hyperlipidemia Hypertension Arthritis Anemia Migraine headache Seizures Non-smoker CPAP (continuous positive airway pressure) dependence Sleep apnea Leg cramps History of pain when walking History of edema Abnormal uterine bleeding Tiredness Weight loss Back pain Neck pain Varicose veins of both lower extremities Hair loss disorder Chronic back pain Obesity Vitamin B12 deficiency Home Medications ?Medication ?Instructions ?Recorded ?Last Taken ?Type syringe with needle, safety 3 mL #100 ea 03/18/23 Unknown Rx 25 gauge x 1 (Easy Touch SheathLock Syringe with Needle) aspirin 81 mg tablet,delayed 81 mg PO DAILY 05/20/23 11/30/23 History release bupropion HCl 100 mg tablet,12 hr 100 mg PO QDAY 11/12/23 Unknown History sustained-release (Wellbutrin SR) clopidogrel 75 mg tablet (Plavix) 75 mg PO DAILY 12/02/23 11/30/23 History cyanocobalamin (vitamin B-12) 1,000 mcg subcut QMONTH 12/02/23 Unknown History 1,000 mcg/mL injection solution pantoprazole 20 mg tablet,delayed 20 mg PO QDAY #30 tabs 12/16/23 Unknown Rx release Allergy/AdvReac Type Severity Reaction Status Date / Time ibuprofen (From Motrin) AdvReac Intermediate Shortness Verified 01/31/24 17:36 of breath Family History Father Diabetes Heart disease Lung cancer smoker- agent orange Arthritis Cancer Mother High cholesterol Surgical History Hx of hysterectomy Hx of surgical procedure Status post hysterectomy (~10/17/21) Hx laparoscopic cholecystectomy Hx of bilateral cataract extraction History of carpal tunnel surgery of left wrist History of endometrial ablation History of gastric stapling History of History of tonsillectomy History of tubal ligation Social History Smoking Status: Never smoker alcohol intake: never substance use type: does not use caffeine: Yes what type of physical activity do you participate in: none seatbelt use: always do you feel safe at home: Yes additional social history: [employer] in [place] patient works at [employer] ROS ROS ED Review of Systems ROS Unobtainable: due to mental status and other Details: Anaphylactic reaction with allergic angioedema and airway obstruction EXAM Physical Exam Const Vital Signs: 01/31/24 17:33 01/31/24 17:52 01/31/24 18:06 Temperature 97.3 F L 98 F Temperature Source Temporal Axillary Pulse Rate 133 H 140 H 135 H Respiratory Rate 24 H 35 H 34 H Respiratory Effort Respiratory Depth Respiratory Pattern Blood Pressure 139/112 H 140/100 H 140/100 H Blood Pressure Mean 121 113 113 Pulse Ox 100 95 100 Oxygen Delivery Method Room Air Ambu-Bag Fraction of Inspired Oxygen (FIO2) 01/31/24 18:15 01/31/24 18:25 01/31/24 18:32 Temperature Temperature Source Pulse Rate 112 H 99 Respiratory Rate 14 20 H Respiratory Effort Short of Breath Nasal [place] Respiratory Depth Shallow Respiratory Pattern Normal Gasping Blood Pressure 166/96 H Blood Pressure Mean 119 Pulse Ox 100 99 Oxygen Delivery Method Mechanical Ventilator Fraction of Inspired Oxygen (FIO2) 50 50 Positive well nourished and well developed General Appearance ED: well developed and cyanotic; Negative for diaphoretic or NAD HEENT Reports moist mucous membranes HEENT Narrative: Allergic angioedema with Mallampati score of 4 Eyes PERRL and EOMs intact bilaterally General Eye ED: Negative for pale conjunctiva or scleral icterus Neck Neck Narrative: Significant swelling of the anterior neck. Chest Wall inspection of chest normal and palpation of chest normal Resp No normal respiratory effort and clear to auscultation bilaterally Resp Narrative: Patient with retractions. Cardio regular rhythm, S1 normal heart sound, S2 normal heart sound and no murmurs GI normal to inspection, nondistended, normoactive bowel sounds, non-tender, non- distended and no masses; Negative for hepatosplenomegaly Back/Spine no CVA tenderness Extremity normal to inspection General Extremety ED: Negative for edema or tenderness General Extremity: Negative for edema Neuro oriented x3 and CN's II-XII intact bilaterally Psych Mood & Affect: anxious Skin Skin Narrative: Initially patient did not have a rash. Shortly after arrival she developed urticaria MDM MDM MDM Narrative Medical decision making narrative: Patient presents with angioedema. She is on an antidepressant. She took Zyrtec. Unable to determine why she took Zyrtec. Daughter states she took a Zyrtec. Patient has allergic angioedema. She is developing generalized hives. She ate at [employer]. Spoke with the worker at [employer]. She informing they do not use peanut oil. She had [employer] beef and [employer] noodles. Contents are peppers, onions soy sauce. There is no type of shellfish food. Uncertain whether they use separate pots/pans for shellfish food and food that contains nuts. Patient received epi. There was no response because of concern that she may not have gotten the epi. Second dose of epi was given. In spite of this patient continued to have swelling of her lip tongue and neck. Epi drip was verbally ordered by me and nurse was instructed how to mix it. Patient had an LMA placed immediately by me and airway team was called. Dr. Sampson the anesthesiologist presented. Prior to placement of Igel patient became cyanotic. She was pointing to her throat that she could not breathe. In spite of 2 epinephrine, Pepcid, Solu-Medrol and Benadryl she was getting worse and reason for epinephrine drip. Patient was oxygenated with Igel. Patient was fiberoptically intubated through Igel by Dr. Sampson. There was appropriate color change on the capnometer. Chest x-ray reveals endotracheal tube to be in proper position. Furthermore visualized with bronchoscope rings in the trachea. Please see read nurses notes for time and dosage of medicines that were ordered verbally during an emergent critical situation. History & Record Review Discussion w/independent historian: Patient and Family Lab Data Attestation: I reviewed the patient's lab results. Lab results narrative: CBC is unremarkable. There is no eosinophilia. Electrolyte panel is unremarkable. Glucose is slightly elevated 121 with normal CO2 anion gap. Hepatic panel is normal Labs: Laboratory Results - last 24 hr 01/31/24 01/31/24 01/31/24 17:42 17:42 17:42 WBC 7.4 RBC 4.55 Hgb 12.8 Hct 38.5 MCV 84.6 MCH 28.1 MCHC 33.2 RDW Std Deviation 43.3 RDW Coeff of Aretha 14.1 Plt Count 336 MPV 9.8 Immature Gran % (Auto) 0.500 Neut % (Auto) 51.7 Lymph % (Auto) 40.2 Graves % (Auto) 6.2 Eos % (Auto) 1.1 Baso % (Auto) 0.3 Absolute Neuts (auto) 3.8 Absolute Lymphs (auto) 2.96 Nucleated RBC % 0 Sodium Cancelled 140 Potassium Cancelled 3.7 Chloride Cancelled Carbon Dioxide Anion Gap BUN Creatinine Estim Creat Clear Calc Est GFR (MDRD) Af Amer Est GFR (MDRD) Non-Af BUN/Creatinine Ratio Glucose Calcium Total Bilirubin AST ALT Alkaline Phosphatase Total Creatine Kinase Total Protein Albumin Globulin Albumin/Globulin Ratio Triglycerides 01/31/24 01/31/24 01/31/24 17:42 17:42 17:42 WBC RBC Hgb Hct MCV MCH MCHC RDW Std Deviation RDW Coeff of Aretha Plt Count MPV Immature Gran % (Auto) Neut % (Auto) Lymph % (Auto) Graves % (Auto) Eos % (Auto) Baso % (Auto) Absolute Neuts (auto) Absolute Lymphs (auto) Nucleated RBC % Sodium Potassium Chloride 108 H Carbon Dioxide Cancelled 22.0 Anion Gap Cancelled 10 BUN Cancelled Creatinine Estim Creat Clear Calc Est GFR (MDRD) Af Amer Est GFR (MDRD) Non-Af BUN/Creatinine Ratio Glucose Calcium Total Bilirubin AST ALT Alkaline Phosphatase Total Creatine Kinase Total Protein Albumin Globulin Albumin/Globulin Ratio Triglycerides 01/31/24 01/31/24 01/31/24 17:42 17:42 17:42 WBC RBC Hgb Hct MCV MCH MCHC RDW Std Deviation RDW Coeff of Aretha Plt Count MPV Immature Gran % (Auto) Neut % (Auto) Lymph % (Auto) Graves % (Auto) Eos % (Auto) Baso % (Auto) Absolute Neuts (auto) Absolute Lymphs (auto) Nucleated RBC % Sodium Potassium Chloride Carbon Dioxide Anion Gap BUN 11 Creatinine Cancelled 0.88 Estim Creat Clear Calc Cancelled 107.88 Est GFR (MDRD) Af Amer Cancelled Est GFR (MDRD) Non-Af BUN/Creatinine Ratio Glucose Calcium Total Bilirubin AST ALT Alkaline Phosphatase Total Creatine Kinase Total Protein Albumin Globulin Albumin/Globulin Ratio Triglycerides 01/31/24 01/31/24 01/31/24 17:42 17:42 17:42 WBC RBC Hgb Hct MCV MCH MCHC RDW Std Deviation RDW Coeff of Aretha Plt Count MPV Immature Gran % (Auto) Neut % (Auto) Lymph % (Auto) Graves % (Auto) Eos % (Auto) Baso % (Auto) Absolute Neuts (auto) Absolute Lymphs (auto) Nucleated RBC % Sodium Potassium Chloride Carbon Dioxide Anion Gap BUN Creatinine Estim Creat Clear Calc Est GFR (MDRD) Af Amer 89 Est GFR (MDRD) Non-Af Cancelled 74 BUN/Creatinine Ratio Cancelled 12.5 Glucose Cancelled Calcium Total Bilirubin AST ALT Alkaline Phosphatase Total Creatine Kinase Total Protein Albumin Globulin Albumin/Globulin Ratio Triglycerides 01/31/24 01/31/24 17:42 17:42 WBC RBC Hgb Hct MCV MCH MCHC RDW Std Deviation RDW Coeff of Aretha Plt Count MPV Immature Gran % (Auto) Neut % (Auto) Lymph % (Auto) Graves % (Auto) Eos % (Auto) Baso % (Auto) Absolute Neuts (auto) Absolute Lymphs (auto) Nucleated RBC % Sodium Potassium Chloride Carbon Dioxide Anion Gap BUN Creatinine Estim Creat Clear Calc Est GFR (MDRD) Af Amer Est GFR (MDRD) Non-Af BUN/Creatinine Ratio Glucose 121 H Calcium Cancelled 9.5 Total Bilirubin 0.20 AST 5 L ALT 21 Alkaline Phosphatase 139 H Total Creatine Kinase 128 Total Protein 7.5 Albumin 3.4 Globulin 4.1 Albumin/Globulin Ratio 0.8 L Triglycerides 170 Radiography Chest X-Ray - ED: Read by ED Physician (Single view chest x-ray does not drink to be in proper position. There is no evidence of pneumothorax, infiltrate or effusion. There is evidence of discoid atelectasis left. Cardiac silhouette size normal. 1819) Diagnostic Testing: Clinical Impression(s) from Imaging Studies Chest X-Ray 01/31/24 18:10 IMPRESSION: 1. The endotracheal tube tip is high, approximately 6.4 cm above the lindsey. Consider advancing approximately 2 to 3 cm. 2. Pulmonary opacities in the left lung likely indicating pneumonia or atelectasis. Electronically Signed: Ian Kenyon, DO at 18:28 EST , Radiology report was read. The endotracheal tube cannot be advanced because of 6.5 and there is concern the airway could be lost if attempt was made to use obturator to advance endotracheal tube through the Igel. Since patient is being ventilated and oxygenated the tube will remain at 6 cm above the lindsey. EKG Initial EKG: Attestation: I personally reviewed and interpreted this EKG as follows: Interpretation: Sinus Rhythm (Rate is 95. There is low voltage which may be due to body habitus i.e. BMI 44.5. NE interval started milliseconds QRS duration 98 ms. QT duration parities 6 ms. The QTc is prolonged.) Treatment and Re-Evaluation :: Documented in the MDM portion of the EMR Procedures Other Procedures Procedure(s): Placement of i-gel for oxygenation due to angioedema obstructing the airway. Critical Care Time Critical Care Time: Yes Critical care time (excluding procedures): 30-74 minutes (36), Including time spent: (History, physical, documentation, wet pour supervisor spoke with family by tended to the patient's needs), Discussing w/Patient &/or Family/Clutch Specialist, Discussing w/Consultants (Spoke with hospitalist for admission to ICU and wet pour supervisor to [facility] arrangements for ICU admission), Arranging Admission or Transfer and Performing Direct Patient Care at Bedside (Placement of i-gel/LMA for oxygenation and alleviate patient's obstruction due to allergic angioedema. Patient was fiberoptically intubated by Dr. Sampson) Discharge Plan Dx/Rx/DC Orders Clinical Impression: Anaphylactic reaction, Hypertension, Hyperlipidemia, CHRISTIANA (obstructive sleep apnea), Allergic angioedema due to ingested food, Acute respiratory distress, Acute airway obstruction, Sinus tachycardia, BMI 40.0-44.9, adult Disposition Disposition: Acute Care Hospital [facility]
--- NOTE | 2024-01-31 18:22 | CPS ---
Stat airway team was called. ET tube was placed by Dr. Sheppard through the [facility] oral airway with fiber optic scope. Tube was secured with cloth tape. ET tube appears to be at 26 at the lip.
[2024-01-31 18:30] LABS: ALB/GLOB Ratio 0.8 RATIO (0.9-2.4); AST(SGOT) 5 U/L (15-37); Alanine Aminotransfer ALT/SGPT 21 U/L (13-56); Albumin, Serum 3.4 g/dL (3.2-5.0); Alkaline Phosphatase 139 U/L (45-117); Anion Gap 10 (5-15); BUN 11 mg/dL (7-18); BUN/Creat Ratio 12.5 RATIO (10-20); CPK Total, Creatine Kinase 128 U/L (26-192); Calcium,Total 9.5 mg/dL (8.5-10.1); Chloride 108 mmol/L (98-107); Creatinine, Serum 0.88 mg/dL (0.55-1.02); EST Glomerular Filtration Rate 74 mL/min (>60); Est Glom Filt Rate - Afr Amer 89 mL/min (>60); Estimated Creatinine Clearance 107.88 ml/min; Globulin 4.1 g/dL (2.2-4.2); Glucose 121 mg/dL (74-106); Potassium 3.7 mmol/L (3.5-5.1); Protein, Total 7.5 g/dL (6.4-8.2); Sodium Level 140 mmol/L (136-145)
--- NOTE | 2024-01-31 18:42 | HP.PCM.HOS_ITS ---
HPI - General General Date of Admission: 01/31/24 Date of Service: 01/31/24 Chief Complaint: facial, throat, tongue swelling after eating out. 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 Thompson who presents to the [facility] ED on 01/31/24 with history of significant facial swelling, tongue and throat swelling, pruritus that started approximately 5 minutes prior to ED arrival following ingestion of food at [employer] with no history of food allergies previous to this. Workup in the ED included initial evaluation T97.3 Temporally, heart rate 113, BP 139/112, respiratory rate 24, 100% on room air--> heart rate 99, BP 166/96, respiratory rate 20, 99% ventilated with 50% FiO2, CBC with WBC 7.4, hemoglobin 12.8, MCV 84.6, platelet 336 without marked shift, CMP with chloride 108, glucose 121, alk phos 139 otherwise not marked appearing, total creatinine kinase 128, chest x-ray ET tube high approximately 6.4 cm above the lindsey, pulm opacities left lung possibly pneumonia or atelectasis. Given severity of presentation and worsening airway compromise stat airway team was initiated per ED physician and anesthesia eventually placed an i-gel supraglottic airway as well as an ET tube inside of the i-gel via fiberoptic. In the ED patient was administered 1 L normal saline, diphenhydramine 50 mg IV x 2, EpiPen 0.3 mg IM x 2, famotidine 20 mg IV x 1, Solu-Medrol 125 mg IV x 1 and eventually administered succinylcholine 100 mg IV x 1, etomidate 20 mg IV x 2 and started on a propofol drip. Patient following securing her airway was also placed on an epinephrine drip. Per report he notes that she also had similar reaction but less severe after [employer] and took zyrtec with improvement. Soy, green/red/yellow pepper, lo mein, soy sauce, beef was in her dish per [employer]. They do not use peanut oil. Unclear if separate pans are used on not. PFSH Medical History Lung nodules Preventative health care Colon cancer screening UTI (urinary tract infection) CHRISTIANA (obstructive sleep apnea) Chronic fatigue Lung nodule seen on imaging study Family history of early CAD Generalized anxiety disorder Hyperlipidemia Hypertension Arthritis Anemia Migraine headache Seizures Non-smoker CPAP (continuous positive airway pressure) dependence Sleep apnea Leg cramps History of pain when walking History of edema Abnormal uterine bleeding Tiredness Weight loss Back pain Neck pain Varicose veins of both lower extremities Hair loss disorder Chronic back pain Obesity Vitamin B12 deficiency Home Medications ?Medication ?Instructions ?Recorded ?Last Taken ?Type syringe with needle, safety 3 mL #100 ea 03/18/23 Unknown Rx 25 gauge x 1 (Easy Touch SheathLock Syringe with Needle) aspirin 81 mg tablet,delayed 81 mg PO DAILY 05/20/23 11/30/23 History release bupropion HCl 100 mg tablet,12 hr 100 mg PO QDAY 11/12/23 Unknown History sustained-release (Wellbutrin SR) clopidogrel 75 mg tablet (Plavix) 75 mg PO DAILY 12/02/23 11/30/23 History cyanocobalamin (vitamin B-12) 1,000 mcg subcut QMONTH 12/02/23 Unknown History 1,000 mcg/mL injection solution pantoprazole 20 mg tablet,delayed 20 mg PO QDAY #30 tabs 12/16/23 Unknown Rx release Allergy/AdvReac Type Severity Reaction Status Date / Time ibuprofen (From Motrin) AdvReac Intermediate Shortness Verified 01/31/24 17:36 of breath Family History Father Diabetes Heart disease Lung cancer smoker- agent orange Arthritis Cancer Mother High cholesterol Surgical History Hx of hysterectomy Hx of surgical procedure Status post hysterectomy (~10/17/21) Hx laparoscopic cholecystectomy Hx of bilateral cataract extraction History of carpal tunnel surgery of left wrist History of endometrial ablation History of gastric stapling History of History of tonsillectomy History of tubal ligation Social History Smoking Status: Never smoker alcohol intake: never substance use type: does not use caffeine: Yes what type of physical activity do you participate in: none seatbelt use: always do you feel safe at home: Yes additional social history: [employer]- [place] in [place] patient works at [employer] ROS Review of Systems ROS Unobtainable: due to endotracheal tube Vital Signs Vital Signs Vital Signs: 01/31/24 17:33 01/31/24 17:52 01/31/24 18:06 Temperature 97.3 F L 98 F Temperature Source Temporal Axillary Pulse Rate 133 H 140 H 135 H Respiratory Rate 24 H 35 H 34 H Respiratory Effort Respiratory Depth Respiratory Pattern Blood Pressure 139/112 H 140/100 H 140/100 H Blood Pressure Mean 121 113 113 Pulse Ox 100 95 100 Oxygen Delivery Method Room Air Ambu-Bag Fraction of Inspired Oxygen (FIO2) 01/31/24 18:15 01/31/24 18:25 01/31/24 18:32 Temperature Temperature Source Pulse Rate 112 H 99 Respiratory Rate 14 20 H Respiratory Effort Short of Breath Nasal [place] Respiratory Depth Shallow Respiratory Pattern Normal Gasping Blood Pressure 166/96 H Blood Pressure Mean 119 Pulse Ox 100 99 Oxygen Delivery Method Mechanical Ventilator Fraction of Inspired Oxygen (FIO2) 50 50 Weight Weight: 275 lb 6.4 oz Body Mass Index (BMI) 44.4 Physical Exam Narrative Physical Examination: General: Intubated, sedated, intubated, airway team, i-gel and ET tube currently in place, significant facial/tongue/airway swelling. Skin: Normal color, normal turgor, no icterus, no cyanosis. HEENT: AT/NC, EOMI, PERRLA, dry MM, swollen tongue/throat/face, no obvious carotid bruit, difficult assess JVD given current swelling. Lungs: Diminished, greater bases, intubated, sedated, symmetric rise no rales, ronchi or wheezing. Heart: Mildly tachycardic with rhythm; no gallop, rub audible. Abdomen: Soft, morbidly obese, NTTP but currently intubated and sedated, no obvious distention, distant BS, no appreciated HSM but difficult exam given morbidly obese habitus. Extremities: No cyanosis, clubbing, no peripheral marked edema but as noted significant facial swelling with anaphylaxis. Neurological: Intubated, sedated, intubated, airway team, i-gel and ET tube currently in place, significant facial/tongue/airway swelling, cognitive function unable to be assessed well because intubated/sedated status, pupils mildly sluggish, equally reactive to light and accommodation, cranial nerves unable to be assessed given intubated/sedated status, not responding to stimuli, strength accordingly severely global decrease. Psychiatric: Affect appears flat, sedated and intubated, no acute evidence of depressive or anxiety feelings but does have history. Results Lab / Micro Data 01/31/24 17:42 01/31/24 17:42 Labs: Laboratory Results - last 24 hr 01/31/24 17:42: WBC 7.4, RBC 4.55, Hgb 12.8, Hct 38.5, MCV 84.6, MCH 28.1, MCHC 33.2, RDW Std Deviation 43.3, RDW Coeff of Aretha 14.1, Plt Count 336, MPV 9.8, Immature Gran % (Auto) 0.500, Neut % (Auto) 51.7, Lymph % (Auto) 40.2, [place] % (Auto) 6.2, Eos % (Auto) 1.1, Baso % (Auto) 0.3, Absolute Neuts (auto) 3.8, Absolute Lymphs (auto) 2.96, Nucleated RBC % 0, Sodium Cancelled 01/31/24 17:42: Sodium 140, Potassium Cancelled 01/31/24 17:42: Potassium 3.7, Chloride Cancelled 01/31/24 17:42: Chloride 108 H, Carbon Dioxide Cancelled 01/31/24 17:42: Carbon Dioxide 22.0, Anion Gap Cancelled 01/31/24 17:42: Anion Gap 10, BUN Cancelled 01/31/24 17:42: BUN 11, Creatinine Cancelled 01/31/24 17:42: Creatinine 0.88, Estim Creat Clear Calc Cancelled 01/31/24 17:42: Estim Creat Clear Calc 107.88, Est GFR (MDRD) Af Amer Cancelled 01/31/24 17:42: Est GFR (MDRD) Af Amer 89, Est GFR (MDRD) Non-Af Cancelled 01/31/24 17:42: Est GFR (MDRD) Non-Af 74, BUN/Creatinine Ratio Cancelled 01/31/24 17:42: BUN/Creatinine Ratio 12.5, Glucose Cancelled 01/31/24 17:42: Glucose 121 H, Calcium Cancelled 01/31/24 17:42: Calcium 9.5, Total Bilirubin 0.20, AST 5 L, ALT 21, Alkaline Phosphatase 139 H, Total Creatine Kinase 128, Total Protein 7.5, Albumin 3.4, Globulin 4.1, Albumin/Globulin Ratio 0.8 L Imaging Radiology Impression Chest X-Ray 01/31/24 18:10 IMPRESSION: 1. The endotracheal tube tip is high, approximately 6.4 cm above the lindsey. Consider advancing approximately 2 to 3 cm. 2. Pulmonary opacities in the left lung likely indicating pneumonia or atelectasis. 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 Thompson who presents to the [facility] ED on 01/31/24 with history of significant facial swelling, tongue and throat swelling, pruritus that started approximately 5 minutes prior to ED arrival following ingestion of food at [employer] with no history of food allergies previous to this. #1. Acute hypoxic respiratory failure secondary to severe allergic reaction highly suspicious for seafood allergy with anaphylaxis and airway compromise: Will admit to the ICU, maintain intubated and sedated status with i-gel within the ETT per anesthesia, will maintain on ATC budesonide, PRN albuterol, maintain on IV epinephrine, maintain on IV Solu-Medrol, maintain on IV Benadryl, maintain on IV famotidine, vocational technical education teacher will be consulted for further recommendations, given airway is secure as noted per family preference/request as patient works at [facility], will admit to [facility] and if necessary may consider involving ENT however they are not on service per discussion with press operator [employer] until 02/02/2024. Food allergy formal testing requested with pending Food Profile Allergen given severity of current presentation and recurrent history, worsening although seafood allergy suspected based on family history given. #2. History of gastric sleeve with occasional dysphagia since: Noted gastric sleeve 2017, complaints of dysphagia to food getting stuck since, most recent EGD noted 12/04/2023 with small hiatal hernia, chronic gastritis, evidence of sleeve gastrectomy found, erythematous duodenopathy with biopsies obtained. Encourage continued outpatient follow-up with gastroenterology as previously arranged. Continue recently initiated PPI 12/16/2023 per gastroenterology at office visit. #3. Hypertension: Current list does not appear to be on regimen, clarified to be certain we will add if appropriate, IV as needed hydralazine in interim. #4. Hyperlipidemia: Per current list does not appear to be on any statin therapy or hyperlipidemic regimen, no statin allergy listed, will defer to outpatient. #5. Chart reported history of seizure disorder: Unclear exact history, possibly in use, not on any antibiotic medication but clarifying. #6. History of significant varicose veins bilaterally with pain with right greater than left common iliac vein obstruction: Status post PCI right common iliac vein with only noted mild compression on the left thus monitoring, following outpatient with vascular surgeon Dr. Thompson, continue aspirin, Plavix, clarifying hypertensive regimen, not on statin therapy per current list but again clarifying to be certain. #7. Chronic normocytic anemia, vitamin B12 deficiency: Noted in history especially with follow-up with gastroenterology, on subcu injections monthly, admission CBC with hemoglobin 12.8, MCV 84.6, baseline hemoglobin noted to be 10-11 primarily, most recently prior to this 09/23/2023 hemoglobin 11.3, continue to trend. #8. Morbid Obesity: Weight loss and lifestyle changes encouraged. #9. CHRISTIANA: Given presentation will continue intubated and sedated status. #10. Anxiety and depression: Will continue patient on appropriate regimen #11. GERD: Will maintain on IV famotidine. On oral PPI per GI. #12. DVT prophylaxis: Lovenox. #13. CODE STATUS: Full code. Charges/Coding Visit Charges Inpatient E&M: 42336 Init Hosp L3
--- NOTE | 2024-01-31 18:54 | ED.RN ---
pt grasping @ throat, thrashing. Intubation verbal order, restraints applied for pt safety per Dr. Gage
--- NOTE | 2024-01-31 18:57 | EKG12_ITS ---
Test Reason : DYSRHYTHMIA Blood Pressure : */* mmHG Vent. Rate : 95 BPM Atrial Rate : 95 BPM P-R Int : 200 ms QRS Dur : 98 ms QT Int : 386 ms P-R-T Axes : 32 -11 57 degrees QTcB Int : 485 ms Normal sinus rhythm Low voltage QRS Prolonged QT Abnormal ECG Confirmed by Kenneth Friedman ([id number]), linux kernel developer DANYA ONTIVEROS ([id number]) on 02/01/2024 11:47:23 AM Referred By: Confirmed By: Kenneth Friedman
[2024-01-31 19:01] LABS: Triglycerides 170 mg/dL
--- NOTE | 2024-01-31 19:06 | ED.RN ---
unable to place OG due to angioedema. LMA placed to hold airway, ETT placed inside.
[2024-01-31 19:19] LABS: Lactic Acid 3.9 mmol/L (0.4-1.9)
[2024-01-31 19:20] LABS: Allen Test Positive; Base Excess -6 mmol/L (-2 to +2); Bicarbonate 20.9 mmol/L (22-26); Blood Gas Specimen Type ART; Mode AC; O2 Delivery Device Adult Vent; PEEP 5; PO2 92 mmHG (75-100); RR 14; SITE L Radial; SO2 96 % (95-99); Total Carbon Dioxide 22 mmol/L; pCO2 46.1 mmHg (35-45); pH 7.27 (7.35-7.45)
[2024-01-31] MEDS: fentaNYL drip 100 ML 5 MCG CONT INF (20:11)
[2024-01-31 22:35] LABS: Reflex Lactate? Y
[2024-01-31 22:39] LABS: Base Excess -5 mmol/L (-2 to +2); Blood Gas Specimen Type ART; Mode AC; O2 Delivery Device Adult Vent; PEEP 5; PO2 91 mmHG (75-100); RR 14; SITE L Radial; SO2 97 % (95-99); Total Carbon Dioxide 21 mmol/L; pCO2 35.3 mmHg (35-45); pH 7.36 (7.35-7.45)
[2024-01-31] MEDS: Propofol 10MG/Ml 1,000 MG/100 ML Bottle 30 MG CONT INF (22:54)
[2024-01-31] MEDS: Chlorhexidine 15 ML PO (22:57)
[2024-01-31] MEDS: Enoxaparin 40 MG/0.4 ML Syringe SC (23:16)
[2024-01-31] MEDS: 0.9% Normal Saline (1000mL) 1,000 ML 100 ML IV (23:17)
[2024-01-31] MEDS: MethylPREDNISolone 125 MG/2 ML Vial 40 MG IV (23:17)
[2024-02-01] VITALS (33 sets, daily range): BP systolic 128–144; BP diastolic 78–84; PULSE 14–109; RESP 14–23; TEMP 36.2–37; O2SAT 92–100; BMI 43.2
[2024-02-01 01:35] LABS: Lactic Acid 5.4 mmol/L (0.4-1.9)
[2024-02-01] MEDS: Epinephrine (1 mg/ml) 1 MG in 0.9% Normal Saline (250mL Bag) 250 ML 60.2 MG IV (02:12)
[2024-02-01] MEDS: Propofol 10MG/Ml 1,000 MG/100 ML Bottle 26.2 MG CONT INF ×6 (02:12→20:39)
--- NOTE | 2024-02-01 02:15 | PCM.HOSP.N ---
Hospitalist Note Patient admitted earlier this evening for anaphylactic shock requiring emergent intubation. Initial lactic acid was 3.9 and repeat lactic acid at 1 AM came back at 5.4. Patient is currently being maintained on epinephrine drip at 4 mcg/minute and propofol and phenyl drips. She is also getting IV Benadryl and IV Solu-Medrol scheduled every 8 hours. Per ICU nurse, patient has been very stable since arrival up to the ICU. Has gotten approximately 500 cc of normal saline to this point. Will give another 1 L of normal saline total at this time. No need for urgent labs, can follow-up morning labs and repeat lactate then.
[2024-02-01 05:11] LABS: Absolute Lymphocyte Count 0.62 X10^3/uL (0.83-4.51); Absolute Neutrophil Count 13.4 X10^3/uL (2.0-7.7); Basophil# 0.02 X10^3/uL; Basophil% 0.1 % (0-1); Eosinophil# 0.02 X10^3/uL; Eosinophils% 0.1 % (0-5); Hematocrit 37.1 % (37-47); Lymphocyte # 0.62 X10^3/ul (0.83-4.51); Lymphocyte % 4.3 % (19-41); Mean Corp Hgb Conc 32.3 g/dL (32-36); Mean Corpuscular Hgb 27.8 pg (27.0-32.0); Mean Corpuscular Volume 85.9 fL (81-99); Mean Platelet Vol. 9.6 fl (6.2-12.0); Monocyte# 0.23 X10^3/uL; Monocyte% 1.6 % (0-10); NRBC Flagged by Analyzer 0 % (0-5); Neutrophil # 13.43 X10^3/uL (2.7-7.7); Neutrophil % 93.3 % (47-70); Platelet Count 335 K/mm3 (150-450); RBC Distribution Width CV 14.4 % (11.6-14.6); Red Blood Count 4.32 M/mm3 (4.2-5.4); White Blood Count 14.4 K/mm3 (4.4-11.0)
[2024-02-01 05:33] LABS: ALB/GLOB Ratio 0.8 RATIO (0.9-2.4); AST(SGOT) 22 U/L (15-37); Alanine Aminotransfer ALT/SGPT 21 U/L (13-56); Albumin, Serum 3.1 g/dL (3.2-5.0); Alkaline Phosphatase 125 U/L (45-117); Anion Gap 14 (5-15); BUN 7 mg/dL (7-18); BUN/Creat Ratio 7.7 RATIO (10-20); Calcium,Total 7.3 mg/dL (8.5-10.1); Chloride 108 mmol/L (98-107); Creatinine, Serum 0.91 mg/dL (0.55-1.02); EST Glomerular Filtration Rate 70 mL/min (>60); Est Glom Filt Rate - Afr Amer 85 mL/min (>60); Estimated Creatinine Clearance 106.09 ml/min; Glucose 180 mg/dL (74-106); Potassium 4.8 mmol/L (3.5-5.1); Protein, Total 7.1 g/dL (6.4-8.2); Sodium Level 138 mmol/L (136-145)
[2024-02-01 05:35] LABS: Lactic Acid 8.1 mmol/L (0.4-1.9)
[2024-02-01] MEDS: Sodium Bicarbonate 8.4% 50 ML Syringe 100 MEQ IV (05:55)
[2024-02-01] MEDS: DiphenhydrAMINE 50 MG/ML Syringe IV ×3 (05:55→20:40)
[2024-02-01] MEDS: MethylPREDNISolone 125 MG/2 ML Vial 40 MG IV ×3 (05:55→20:40)
--- NOTE | 2024-02-01 07:36 | PN.HOSP_ITS ---
Reason for Visit Reason for Visit: Diagnoses Anaphylactic shock, unspecified, initial encounter (01/31/24) Subjective Subjective Patient is a 48-year-old lady who was admitted following anaphylactic reaction after food ingestion. Patient was assessed to have a compromised airway resulting in patient being intubated and admitted to the intensive care unit. Patient was also found to have a lactic acid elevation with no source of infection Objective Data Objective Data Vital Signs: Vital Signs Temp Pulse Resp BP Pulse Ox O2 Del Method FiO2 97.2 F L 99 23 H 128/78 H 95 Mechanical Ventilator 21 02/01/24 00:00 02/01/24 07:00 02/01/24 07:00 02/01/24 07:00 02/01/24 07:00 02/01/24 07:00 02/01/24 07:00 Oxygen Delivery Method Mechanical Ventilator Weight: 125.1 kg Body Mass Index (BMI) 43.2 Intake & Output: Intake and Output for Last 24 Hours 01/30/24 01/31/24 02/01/24 23:59 23:59 23:59 Intake Total 1391.82 / 1429.32 486.83 / 486.83 Output Total 1950 / 1950 Balance 1391.82 / 579.32 -1463.17 / -1463.17 Lab / Micro Data 02/01/24 05:00 02/01/24 05:00 Labs: Laboratory Results - last 24 hr 01/31/24 17:42: WBC 7.4, RBC 4.55, Hgb 12.8, Hct 38.5, MCV 84.6, MCH 28.1, MCHC 33.2, RDW Std Deviation 43.3, RDW Coeff of Aretha 14.1, Plt Count 336, MPV 9.8, Immature Gran % (Auto) 0.500, Neut % (Auto) 51.7, Lymph % (Auto) 40.2, [place] % (Auto) 6.2, Eos % (Auto) 1.1, Baso % (Auto) 0.3, Absolute Neuts (auto) 3.8, Absolute Lymphs (auto) 2.96, Nucleated RBC % 0, Sodium Cancelled 01/31/24 17:42: Sodium 140, Potassium Cancelled 01/31/24 17:42: Potassium 3.7, Chloride Cancelled 01/31/24 17:42: Chloride 108 H, Carbon Dioxide Cancelled 01/31/24 17:42: Carbon Dioxide 22.0, Anion Gap Cancelled 01/31/24 17:42: Anion Gap 10, BUN Cancelled 01/31/24 17:42: BUN 11, Creatinine Cancelled 01/31/24 17:42: Creatinine 0.88, Estim Creat Clear Calc Cancelled 01/31/24 17:42: Estim Creat Clear Calc 107.88, Est GFR (MDRD) Af Amer Cancelled 01/31/24 17:42: Est GFR (MDRD) Af Amer 89, Est GFR (MDRD) Non-Af Cancelled 01/31/24 17:42: Est GFR (MDRD) Non-Af 74, BUN/Creatinine Ratio Cancelled 01/31/24 17:42: BUN/Creatinine Ratio 12.5, Glucose Cancelled 01/31/24 17:42: Glucose 121 H, Calcium Cancelled 01/31/24 17:42: Calcium 9.5, Total Bilirubin 0.20, AST 5 L, ALT 21, Alkaline Phosphatase 139 H, Total Creatine Kinase 128, Total Protein 7.5, Albumin 3.4, Globulin 4.1, Albumin/Globulin Ratio 0.8 L, Triglycerides 170 01/31/24 18:33: Lactic Acid 3.9 H* 02/01/24 00:55: Lactic Acid 5.4 H* 02/01/24 05:00: WBC 14.4 H, RBC 4.32, Hgb 12.0, Hct 37.1, MCV 85.9, MCH 27.8, MCHC 32.3, RDW Std Deviation 45.0 H, RDW Coeff of Aretha 14.4, Plt Count 335, MPV 9.6, Immature Gran % (Auto) 0.600, Neut % (Auto) 93.3 H, Lymph % (Auto) 4.3 L, [place] % (Auto) 1.6, Eos % (Auto) 0.1, Baso % (Auto) 0.1, Absolute Neuts (auto) 13.4 H, Absolute Lymphs (auto) 0.62 L, Nucleated RBC % 0, Sodium 138, Potassium 4.8, Chloride 108 H, Carbon Dioxide 16.0 L, Anion Gap 14, BUN 7, Creatinine 0.91, Estim Creat Clear Calc 106.09, Est GFR (MDRD) Af Amer 85, Est GFR (MDRD) Non-Af 70, BUN/Creatinine Ratio 7.7 L, Glucose 180 H, Lactic Acid 8.1 H*, C alcium 7.3 L, Total Bilirubin 0.30, AST 22, ALT 21, Alkaline Phosphatase 125 H, Total Protein 7.1, Albumin 3.1 L, Globulin 4.0, Albumin/Globulin Ratio 0.8 L ABG Data ABG results: ABG 01/31/24 01/31/24 19:17 22:35 Specimen Type ART ART Sample Site L Radial L Radial pH 7.27 L 7.36 Bicarbonate Actual 20.9 L 20.0 L Total CO2 22 21 Base Excess -6 L -5 L O2 Saturation 96 97 O2 % 40.0 25.0 ABG pCO2 46.1 H 35.3 ABG pO2 92 91 Srinivasa Test Positive N/A Respiration Rate 14 14 O2 Delivery Device Adult Vent Adult Vent Vent Mode AC AC Tidal Volume 450.0 500.0 POC PEEP 5 5 Radiography Diagnostic Testing: Radiology Impression Chest X-Ray 01/31/24 18:10 IMPRESSION: 1. The endotracheal tube tip is high, approximately 6.4 cm above the lindsey. Consider advancing approximately 2 to 3 cm. 2. Pulmonary opacities in the left lung likely indicating pneumonia or atelectasis. Electronically Signed: Ian Kenyon DO at 18:28 EST , Physical Exam Narrative GENERAL: Sedated on the vent HEENT: ET tube in place EYES; Anicteric, Normal Conjunctiva NECK; supple, normal thyroid, RESPIRATORY: Diminished to auscultation CARDIOVASCULAR: Regular S1 S2, GI: soft, normoactive bowel sounds, : No Renal angle tenderness; EXTREMITIES: No edema, no clubbing, MUSCULOSKELETAL: no muscle wasting NEURO: Sedated on the vent SKIN: No Rash Assessment & Plan Assessment/Plan (1) Anaphylaxis: PLAN: Plan Patient is a 48-year-old lady who was admitted following anaphylactic reaction after food ingestion. Patient was assessed to have a compromised airway resulting in patient being intubated and admitted to the intensive care unit. Patient was also found to have a lactic acid elevation with no source of infection 1. Acute anaphylactic reaction ? Following ingestion of food suspected to be secondary to seafood allergy. Patient is allergic to peanuts. Patient was found to have a compromise airway resulting in patient being intubated and subsequently admitted to the intensive care unit and placed on epinephrine drip 2. Acute hypoxic respiratory failure ? Secondary to compromised airway following anaphylaxis patient was admitted to the intensive care unit managed with Benadryl Solu-Medrol as well as epinephrine drip with consultation placed to environmental solutions engineer 3. Essential hypertension ? Blood pressure currently remains stable 4. GERD ? On PPI 5. Vitamin B12 deficiency ? Patient is on subcu injections q. monthly 6. Class III obesity with BMI of 43.2 ? Complicating care 7. Lactic acidosis ? No evidence of infectious etiology thought to be secondary to increased work of breathing following patient anaphylaxis 8. DVT prophylaxis ? Subcu Lovenox Time spent in the patient's overall evaluation,decision-making process, review of diagnostic data, adjustment of management, discussion with other providers, nursing nursing and ancillary staff involved in patient's care documentation, 50 minutes Charges/Coding Visit Charges Inpatient E&M: [id number] [facility] Hosp L3
[2024-02-01] MEDS: fentaNYL drip 100 ML 7.5 MCG CONT INF ×2 (08:01→20:41)
[2024-02-01] MEDS: 0.9% Saline Lock 10 ML Syringe IV ×4 (08:02→20:41)
--- NOTE | 2024-02-01 08:34 | EX.PCM.CONCC ---
Assessment & Plan Assessment/Plan (1) Acute airway obstruction: (2) Anaphylactic reaction: PLAN: Plan RECOMMENDATIONS: 1. Continue assist-control mode mechanical ventilation. 2. Check endotracheal tube cuff leak in the morning. 3. Awaiting results of allergy and food profile. 4. Continue propofol and fentanyl for sedation. 5. Continue Pepcid, Benadryl and IV steroids as ordered. 6. Continue appropriate DVT prophylaxis. 7. Recommend outpatient follow-up with allergy/immunology after discharge. IMPRESSIONS: 1. Acute hypoxemic respiratory failure Secondary to acute anaphylactic reaction secondary to unknown triggering food ingestion. The patient has a known history of significant food allergies. She is no longer actively being followed by an interior systems carpenter. The patient appears to have developed significant angioedema after eating at [employer]. As a consequence of this, the patient was emergently intubated for airway protection. She will be continued on corticosteroids, Benadryl and Pepcid as ordered. In the interim, food allergy profile was currently pending. Plan to perform a leak test once again tomorrow morning. Ventilator requirement is minimal at the present time. Ultimately, the patient needs to follow-up with an allergy/immunology provider after discharge. 2. History of obstructive sleep apnea/GERD/anemia/hypertension/hyperlipidemia/history of gastric sleeve procedure Complicates care, management, recovery and prognosis. Continue supportive measures as noted above. Hold on initiating tube feeding today. TIME: 42 minutes of critical care time, independent of procedures, was spent addressing the patient's acute hypoxemic respiratory failure secondary to angioedema in the setting of an anaphylactic reaction, review of all data and collaboration with the care team. HPI Consult Data Date of Consult: 02/01/24 HPI Narrative Reason for Consultation: Acute respiratory failure HPI Narrative: The patient is a 48-year-old female, with a history as outlined below, who presented to the emergency department on January 30 after experiencing an acute anaphylactic reaction while eating at [employer]. The patient has a known history of multiple food allergies, having previously been followed by an steam hand 20 years ago. In addition, she has a documented history of hypertension, hyperlipidemia, and obstructive sleep apnea. According to the patient's , is not entirely clear what the patient ate that would have precipitated her acute anaphylactic reaction. However, he did report that she quite frequently experiences dermatitis and has had an episode of lip swelling this past spring with certain food exposures. On presentation to the emergency department, the patient was notably tachycardic and tachypneic, but otherwise hemodynamically stable. The patient had notable angioedema noted on presentation to the emergency department. Due to her airway being compromised, an Igel was placed. The patient was ultimately intubated through the Igel by anesthesia. She was initiated on Pepcid, Benadryl and IV steroids. The patient was subsequently admitted to the medical intensive care unit for further management. Postintubation ABG demonstrated a pH of 7.36 with a pCO2 of 35 and pO2 of 91. This morning, the patient is stable from a clinical perspective. Her ventilator requirement is minimal with an FiO2 of 21%. However, the patient's angioedema has not completely resolved. The patient did not have a leak this morning reported by respiratory therapy. White blood cell count is elevated at 14,000. Her most recent lactate was normal at 1.9. Food allergy profile is currently pending. [facility] Medical History Lung nodules Preventative [facility] Colon cancer screening UTI (urinary tract infection) CHRISTIANA (obstructive sleep apnea) Chronic fatigue Lung nodule seen on imaging study Family history of early CAD Generalized anxiety disorder Hyperlipidemia Hypertension Arthritis Anemia Migraine headache Seizures Non-smoker CPAP (continuous positive airway pressure) dependence Sleep apnea Leg cramps History of pain when walking History of edema Abnormal uterine bleeding Tiredness Weight loss Back pain Neck pain Varicose veins of both lower extremities Hair loss disorder Chronic back pain Obesity Vitamin B12 deficiency Home Medications ?Medication ?Instructions ?Recorded ?Last Taken ?Type syringe with needle, safety 3 mL #100 ea 03/18/23 Unknown Rx 25 gauge x 1 (Easy Touch SheathLock Syringe with Needle) aspirin 81 mg tablet,delayed 81 mg PO DAILY 05/20/23 11/30/23 History release bupropion HCl 100 mg tablet,12 hr 100 mg PO QDAY 11/12/23 Unknown History sustained-release (Wellbutrin SR) clopidogrel 75 mg tablet (Plavix) 75 mg PO DAILY 12/02/23 11/30/23 History cyanocobalamin (vitamin B-12) 1,000 mcg subcut QMONTH 12/02/23 Unknown History 1,000 mcg/mL injection solution pantoprazole 20 mg tablet,delayed 20 mg PO QDAY #30 tabs 12/16/23 Unknown Rx release Allergy/AdvReac Type Severity Reaction Status Date / Time peanut Allergy Severe Angioedema Verified 01/31/24 19:30 ibuprofen (From Motrin) AdvReac Intermediate Shortness Verified 01/31/24 17:36 of breath Family History Father Diabetes Heart disease Lung cancer smoker- agent orange Arthritis Cancer Mother High cholesterol Surgical History Hx of hysterectomy Hx of surgical procedure Status post hysterectomy (~10/17/21) Hx laparoscopic cholecystectomy Hx of bilateral cataract extraction History of carpal tunnel surgery of left wrist History of endometrial ablation History of gastric stapling History of History of tonsillectomy History of tubal ligation Social History Smoking Status: Never smoker alcohol intake: never substance use type: does not use caffeine: Yes what type of physical activity do you participate in: none seatbelt use: always do you feel safe at home: Yes additional social history: [employer] in [place] patient works at [employer] Review of Systems ROS Unobtainable: due to endotracheal tube Physical Exam Const Constitutional Narrative: Intubated, sedated and mechanically ventilated. No ventilator dyssynchrony. is present at the bedside. HEENT normocephalic and head/scalp atraumatic HEENT Narrative: The patient is currently intubated through an i-gel, which is in satisfactory position. There is still a significant amount of angioedema present. Eyes PERRL, EOMs intact bilaterally and conjunctivae normal Neck supple General: trachea midline Chest inspection of chest normal Resp normal respiratory effort Auscultation: diminished lung sounds Cardio regular rate and regular rhythm GI normal to inspection, nondistended, normoactive bowel sounds Extremity General Extremity: Negative for clubbing or edema Skin no rashes or lesions noted Neuro Sensorium / Orientation: sedated on vent Lab / Micro Data 02/01/24 05:00 02/01/24 05:00 Labs: Laboratory Results - last 24 hr 01/31/24 17:42: WBC 7.4, RBC 4.55, Hgb 12.8, Hct 38.5, MCV 84.6, MCH 28.1, MCHC 33.2, RDW Std Deviation 43.3, RDW Coeff of Aretha 14.1, Plt Count 336, MPV 9.8, Immature Gran % (Auto) 0.500, Neut % (Auto) 51.7, Lymph % (Auto) 40.2, Delta % (Auto) 6.2, Eos % (Auto) 1.1, Baso % (Auto) 0.3, Absolute Neuts (auto) 3.8, Absolute Lymphs (auto) 2.96, Nucleated RBC % 0, Sodium Cancelled 01/31/24 17:42: Sodium 140, Potassium Cancelled 01/31/24 17:42: Potassium 3.7, Chloride Cancelled 01/31/24 17:42: Chloride 108 H, Carbon Dioxide Cancelled 01/31/24 17:42: Carbon Dioxide 22.0, Anion Gap Cancelled 01/31/24 17:42: Anion Gap 10, BUN Cancelled 01/31/24 17:42: BUN 11, Creatinine Cancelled 01/31/24 17:42: Creatinine 0.88, Estim Creat Clear Calc Cancelled 01/31/24 17:42: Estim Creat Clear Calc 107.88, Est GFR (MDRD) Af Amer Cancelled 01/31/24 17:42: Est GFR (MDRD) Af Amer 89, Est GFR (MDRD) Non-Af Cancelled 01/31/24 17:42: Est GFR (MDRD) Non-Af 74, BUN/Creatinine Ratio Cancelled 01/31/24 17:42: BUN/Creatinine Ratio 12.5, Glucose Cancelled 01/31/24 17:42: Glucose 121 H, Calcium Cancelled 01/31/24 17:42: Calcium 9.5, Total Bilirubin 0.20, AST 5 L, ALT 21, Alkaline Phosphatase 139 H, Total Creatine Kinase 128, Total Protein 7.5, Albumin 3.4, Globulin 4.1, Albumin/Globulin Ratio 0.8 L, Triglycerides 170 01/31/24 18:33: Lactic Acid 3.9 H* 02/01/24 00:55: Lactic Acid 5.4 H* 02/01/24 05:00: WBC 14.4 H, RBC 4.32, Hgb 12.0, Hct 37.1, MCV 85.9, MCH 27.8, MCHC 32.3, RDW Std Deviation 45.0 H, RDW Coeff of Aretha 14.4, Plt Count 335, MPV 9.6, Immature Gran % (Auto) 0.600, Neut % (Auto) 93.3 H, Lymph % (Auto) 4.3 L, Delta % (Auto) 1.6, Eos % (Auto) 0.1, Baso % (Auto) 0.1, Absolute Neuts (auto) 13.4 H, Absolute Lymphs (auto) 0.62 L, Nucleated RBC % 0, Sodium 138, Potassium 4.8, Chloride 108 H, Carbon Dioxide 16.0 L, Anion Gap 14, BUN 7, Creatinine 0.91, Estim Creat Clear Calc 106.09, Est GFR (MDRD) Af Amer 85, Est GFR (MDRD) Non-Af 70, BUN/Creatinine Ratio 7.7 L, Glucose 180 H, Lactic Acid 8.1 H*, Calcium 7.3 L, Total Bilirubin 0.30, AST 22, ALT 21, Alkaline Phosphatase 125 H, Total Protein 7.1, Albumin 3.1 L, Globulin 4.0, Albumin/Globulin Ratio 0.8 L ABG Data ABG results: ABG 01/31/24 01/31/24 19:17 22:35 Specimen Type ART ART Sample Site L Radial L Radial pH 7.27 L 7.36 Bicarbonate Actual 20.9 L 20.0 L Total CO2 22 21 Base Excess -6 L -5 L O2 Saturation 96 97 O2 % 40.0 25.0 ABG pCO2 46.1 H 35.3 ABG pO2 92 91 Srinivasa Test Positive N/A Respiration Rate 14 14 O2 Delivery Device Adult Vent Adult Vent Vent Mode AC AC Tidal Volume 450.0 500.0 POC PEEP 5 5 Imaging Radiology Impression Chest X-Ray 01/31/24 18:10 IMPRESSION: 1. The endotracheal tube tip is high, approximately 6.4 cm above the l[place]. Consider advancing approximately 2 to 3 cm. 2. Pulmonary opacities in the left lung likely indicating pneumonia or atelectasis. Electronically Signed: Ian Kenyon DO at 18:28 EST , Charges/Coding Procedures Hospitalists Procedures: 73814 Critical Care 1st Hr
[2024-02-01] MEDS: Chlorhexidine 15 ML PO ×2 (08:41→20:52)
[2024-02-01] MEDS: Enoxaparin 40 MG/0.4 ML Syringe SC ×2 (08:42→20:41)
[2024-02-01 09:06] LABS: Reflex Lactate? Y
[2024-02-01] MEDS: Famotidine 200 MG/20 ML MDV 20 MG in 0.9% Normal Saline (Pres. free 8 ML 300 MG IV ×2 (09:25→20:41)
[2024-02-01 09:53] LABS: Lactic Acid 1.9 mmol/L (0.4-1.9)
--- NOTE | 2024-02-01 10:31 | CM.UR ---
RN CM Assessment Face to Face with patient for initial transition planning/care coordination assessment. Pt is currently on the vent and is unable to answer this RN CM as needed. Pt (Jose) at bedside and willing to help. Care providers, pharmacy, and demographics verified. Admitting dx: Anaphylaxis, Acute Hypoxic RF LACE Strata: 1 PCP: Andreas Calvert Specialists: ICU Dr. aCmpbell states that the pt is needing to be re-established with an Qa Engineer/ Dye Maker. Jose states that the pt has not seen an Dye Maker in 20 years. States that the specialist was out of [place] and cannot recall the name or facility. This RN CM provided Jose with the local Qa Engineer information. Jose states that he would be OK with this RN CM setting the pt up with an appt. Jose also questions the pt if this is OK and the pt nodded her head yes. This RN CM [facility] [place] and they state that they prefer the pt or pt spouse to call and schedule the appt so they can describe what all is needed and what to expect. This RN CM provided the pt with this contact information who then states that he will call to get the pt established. Preferred Pharmacy: [facility] Insurance: [facility] [employer] Prescription Benefit: Yes LNOK: Jose Caceres (), Theresa Caceres (Sarath), Mable Caceres (Son) Living Arrangements: Pt lives with her and daughter Theresa in a single story home with 3-4 steps to enter ADLs/IADLs: Jose states that the pt is ind at baseline Transportation: Self, . DME: CPAP @ [facility] with no additional oxygen. Denies further DME uses at this time HHC/SNF: Denies Hx Plan: TBD. Pt is currently on the mechanical ventilator. PT has been held up to this point and may be held again today per ICU rounds. At this time, it is too early to decipher what the safest DC plan will be for the pt moving forward. CM and SW to continue to follow. Carmelo Head RN, CM
--- NOTE | 2024-02-01 11:19 | CASEMGMT ---
RN CM Assessment Face to Face with patient for initial transition planning/care coordination assessment. Pt is currently on the vent and is unable to answer this RN CM as needed. Pt (Jose) at bedside and willing to help. Care providers, pharmacy, and demographics verified. Admitting dx: Anaphylaxis, Acute Hypoxic RF LACE Strata: 1 PCP: Andreas Calvert Specialists: ICU Dr. Campbell states that the pt is needing to be re-established with an [facility]/ C[facility]. Jose states that the pt has not seen an Ciso in 20 years. States that the specialist was out of [place] and cannot recall the name or facility. This RN CM provided Jose with the local [facility] information. Jose states that he would be OK with this RN CM setting the pt up with an appt. Jose also questions the pt if this is OK and the pt nodded her head yes. This RN CM [facility] [place] and they state that they prefer the pt or pt spouse to call and schedule the appt so they can describe what all is needed and what to expect. This RN CM provided the pt with this contact information who then states that he will call to get the pt established. Preferred Pharmacy: [facility] Insurance: [facility] [employer] Prescription Benefit: Yes LNOK: Jose Caceres (), Theresa Caceres (Sarath), Mable Caceres (Son) Living Arrangements: Pt lives with her and daughter Theresa in a single story home with 3-4 steps to enter ADLs/IADLs: Jose states that the pt is ind at baseline Transportation: Self, . DME: CPAP @ [facility] with no additional oxygen. Denies further DME uses at this time HHC/SNF: Denies Hx Plan: TBD. Pt is currently on the mechanical ventilator. PT has been held up to this point and will be held again today per ICU rounds. At this time, it is too early to decipher what the safest DC plan will be for the pt moving forward. CM and SW to continue to follow. Carmelo Head RN, CM
[2024-02-01 11:29] LABS: Bedside Glucose 111 mg/dL (74-106)
--- NOTE | 2024-02-01 16:04 | CHAPLAIN ---
Type of Pastoral Visit _x__ Initial Visit ___ Follow-up Visit ___ On-call Visit ___ General Patient Visit ___ Spiritual Assessment ___ Family Conference ___ Bereavement ___ Rapid Response ___ Code Blue ___ Other (describe below) Pastoral Care Referral From _x__ Patient _x__ Family ___ Nurse ___ Physician ___ Executive Assistant To President ___ Alliance Director ___ Other (describe below) Sacrament/Intervention ___ Active listening ___ Anointing ___ Jain ___ Bereavement ___ Communion ___ Stella exploration ___ ___ Life review _x__ Prayer ___ Reconciliation ___ Sacrament of Sick _x__ Supportive presence ___ Wedding ___ Other (describe below) Pastoral Comments patient is on a vent but is awake and able to open eyes and nod her head to comments and questions; spouse is at her bedside; patient accepts prayer as does the spouse; offer of support and seeking any further support to patient is given to the spouse
[2024-02-01 17:49] LABS: Bedside Glucose 105 mg/dL (74-106)
[2024-02-01 23:32] LABS: Bedside Glucose 123 mg/dL (74-106)
[2024-02-02] VITALS (33 sets, daily range): BP systolic 118–148; BP diastolic 70–89; PULSE 60–84; RESP 14–18; TEMP 36.7–37.2; O2SAT 92–100; BMI 42.0
[2024-02-02] MEDS: Propofol 10MG/Ml 1,000 MG/100 ML Bottle 26.2 MG CONT INF ×2 (00:51→04:21)
[2024-02-02 04:16] LABS: Absolute Neutrophil Count 16.3 X10^3/uL (2.0-7.7); Basophil# 0.02 X10^3/uL; Basophil% 0.1 % (0-1); Hematocrit 33.3 % (37-47); Hemoglobin 10.6 g/dL (12.0-15.0); Mean Corp Hgb Conc 31.8 g/dL (32-36); Mean Corpuscular Hgb 27.5 pg (27.0-32.0); Mean Corpuscular Volume 86.3 fL (81-99); Mean Platelet Vol. 9.8 fl (6.2-12.0); Monocyte# 0.69 X10^3/uL; Monocyte% 3.7 % (0-10); NRBC Flagged by Analyzer 0 % (0-5); Neutrophil % 87.4 % (47-70); Platelet Count 283 K/mm3 (150-450); RBC Distribution Width CV 14.6 % (11.6-14.6); RBC Distribution Width SD 45.6 fl (35.1-43.9); Red Blood Count 3.86 M/mm3 (4.2-5.4); White Blood Count 18.7 K/mm3 (4.4-11.0)
[2024-02-02 04:21] LABS: Anion Gap 4 (5-15); BUN 16 mg/dL (7-18); Calcium,Total 9.3 mg/dL (8.5-10.1); Chloride 106 mmol/L (98-107); Creatinine, Serum 0.67 mg/dL (0.55-1.02); EST Glomerular Filtration Rate 101 mL/min (>60); Est Glom Filt Rate - Afr Amer 122 mL/min (>60); Glucose 119 mg/dL (74-106); Magnesium 2.2 mg/dL (1.6-2.6); Phosphorus 3.3 mg/dL (2.5-4.9); Sodium Level 136 mmol/L (136-145)
[2024-02-02] MEDS: CHLORHEXIDINE GLUC 2% CLOTH 1 EACH TOWELETTE TOPICAL (04:22)
[2024-02-02] MEDS: 0.9% Saline Lock 10 ML Syringe IV ×5 (04:22→20:13)
[2024-02-02] MEDS: DiphenhydrAMINE 50 MG/ML Syringe IV ×3 (05:13→20:07)
[2024-02-02] MEDS: MethylPREDNISolone 125 MG/2 ML Vial 40 MG IV ×3 (05:13→20:06)
[2024-02-02 05:36] LABS: Bedside Glucose 81 mg/dL (74-106)
[2024-02-02] MEDS: TITRATION PARAMETER CHANGE 1 EACH IV (05:58)
--- NOTE | 2024-02-02 07:13 | PN.HOSP_ITS ---
Reason for Visit Reason for Visit: Diagnoses Other specified respiratory disorders (01/31/24) Anaphylactic shock, unspecified, initial encounter (01/31/24) Subjective Subjective Patient seen remains on the vent responds to tactile stimulation. Tongue still remains significantly swollen Objective Data Objective Data Vital Signs: Vital Signs Temp Pulse Resp BP Pulse Ox O2 Del Method FiO2 98.4 F 70 14 124/81 H 95 Mechanical Ventilator 21 02/02/24 04:00 02/02/24 07:00 02/02/24 07:00 02/02/24 07:00 02/02/24 07:00 02/02/24 07:00 02/02/24 07:00 Oxygen Delivery Method Mechanical Ventilator Weight: 121.8 kg Body Mass Index (BMI) 42.0 Intake & Output: Intake and Output for Last 24 Hours 01/31/24 02/01/24 02/02/24 23:59 23:59 23:59 Intake Total 1391.82 / 1429.32 1971.87 / 2005.57 192.16 / 192.16 Output Total 4000 / 4000 200 / 200 Balance 1391.82 / 579.32 -2028.13 / -1994.43 -7.84 / -7.84 Lab / Micro Data 02/02/24 03:50 02/02/24 03:50 Labs: Laboratory Results - last 24 hr 02/01/24 09:20: Lactic Acid 1.9 02/01/24 11:08: POC Glucose 111 H 02/01/24 17:31: POC Glucose 105 02/01/24 23:15: POC Glucose 123 H 02/02/24 03:50: WBC 18.7 H, RBC 3.86 L, Hgb 10.6 L, Hct 33.3 L, MCV 86.3, MCH 27.5, MCHC 31.8 L, RDW Std Deviation 45.6 H, RDW Coeff of Aretha 14.6, Plt Count 283, MPV 9.8, Immature Gran % (Auto) 0.800, Neut % (Auto) 87.4 H, Lymph % (Auto) 8.0 L, [place] % (Auto) 3.7, Eos % (Auto) 0.0, Baso % (Auto) 0.1, Absolute Neuts (auto) 16.3 H, Absolute Lymphs (auto) 1.50, Nucleated RBC % 0, Sodium 136, Potassium 4.0, Chloride 106, Carbon Dioxide 26.0, Anion Gap 4 L, BUN 16, Creatinine 0.67, Estim Creat Clear Calc 144.10, Est GFR (MDRD) Af Amer 122, Est GFR (MDRD) Non-Af 101, BUN/Creatinine Ratio 24.0 H, Glucose 119 H, Calcium 9.3, Phosphorus 3.3, Magnesium 2.2 02/02/24 05:11: POC Glucose 81 Micro: Microbiology 01/31/24 22:10 Sputum, Induced/Lukens Gram Stain - Final Physical Exam Narrative GENERAL: Sedated on the vent HEENT: ET tube in place EYES; Anicteric, Normal Conjunctiva NECK; supple, normal thyroid, RESPIRATORY: Diminished to auscultation CARDIOVASCULAR: Regular S1 S2, GI: soft, normoactive bowel sounds, : No Renal angle tenderness; EXTREMITIES: No edema, no clubbing, MUSCULOSKELETAL: no muscle wasting NEURO: Sedated on the vent SKIN: No Rash Assessment & Plan Assessment/Plan (1) Anaphylaxis: PLAN: Plan Patient is a 48-year-old lady who was admitted following anaphylactic reaction after food ingestion. Patient was assessed to have a compromised airway resulting in patient being intubated and admitted to the intensive care unit. Patient was also found to have a lactic acid elevation with no source of infection 1. Acute anaphylactic reaction ? Following ingestion of food suspected to be secondary to seafood allergy. Patient is allergic to peanuts. Patient was found to have a compromise airway resulting in patient being intubated and subsequently admitted to the intensive care unit and placed on epinephrine drip ?02/02/2024 epinephrine discontinued. Patient is on famotidine and methylprednisolone 2. Acute hypoxic respiratory failure ? Secondary to compromised airway following anaphylaxis patient was admitted to the intensive care unit managed with Benadryl Solu-Medrol as well as epinephrine drip with consultation placed to sales executive ? 02/02/2024; patient remains on the vent 3. Essential hypertension ? Blood pressure currently remains stable 4. GERD ? On PPI 5. Vitamin B12 deficiency ? Patient is on subcu injections q. monthly 6. Class III obesity with BMI of 43.2 ? Complicating care 7. Lactic acidosis ? No evidence of infectious etiology thought to be secondary to increased work of breathing following patient anaphylaxis 8. DVT prophylaxis ? Subcu Lovenox 9. Leukocytosis ? No evidence of infection this is secondary to patient being on steroid we will continue monitoring with daily CBC with differential Time spent in the patient's overall evaluation,decision-making process, review of diagnostic data, adjustment of management, discussion with other providers, nursing nursing and ancillary staff involved in patient's care documentation, 52 minutes Charges/Coding Visit Charges Inpatient E&M: 36819 Init Hosp L3
[2024-02-02] MEDS: Propofol 10MG/Ml 1,000 MG/100 ML Bottle 25.6 MG CONT INF (07:48)
[2024-02-02] MEDS: Chlorhexidine 15 ML PO ×2 (07:54→20:07)
[2024-02-02] MEDS: Enoxaparin 40 MG/0.4 ML Syringe SC ×2 (07:55→20:05)
--- NOTE | 2024-02-02 08:18 | PCM.PN.INT ---
Assessment & Plan Assessment/Plan (1) Acute airway obstruction: (2) Anaphylactic reaction: PLAN: Plan RECOMMENDATIONS: 1. Continue assist-control mode mechanical ventilation. 2. Check endotracheal tube cuff leak each morning. Plan for spontaneous breathing trial tomorrow morning if leak is present. 3. Awaiting results of allergy and food profile. 4. Continue propofol and fentanyl for sedation. 5. Continue Pepcid, Benadryl and IV steroids as ordered. 6. Continue appropriate DVT prophylaxis. 7. Recommend outpatient follow-up with allergy/immunology after discharge. IMPRESSIONS: 1. Acute hypoxemic respiratory failure Secondary to acute anaphylactic reaction secondary to unknown triggering food ingestion. The patient has a known history of significant food allergies. She is no longer actively being followed by an pullboat engineer. The patient appears to have developed significant angioedema after eating at [employer]. As a consequence of this, the patient was emergently intubated for airway protection. She will be continued on corticosteroids, Benadryl and Pepcid as ordered. In the interim, food allergy profile was currently pending. Overall, the patient's angioedema is slowly improving and she did have a cuff leak noted this morning. Given that there is still residual swelling, we will continue the aforementioned supportive care, with plans to proceed with spontaneous breathing trial once her edema has adequately resolved. Ultimately, the patient needs to follow-up with an allergy/immunology provider after discharge. 2. History of obstructive sleep apnea/GERD/anemia/hypertension/hyperlipidemia/history of gastric sleeve procedure Complicates care, management, recovery and prognosis. Continue supportive measures as noted above. Continue to hold on initiating tube feeding, due to inability to place OG/NG tube. In the interim, will start dextrose containing IV fluids. TIME: 32 minutes of critical care time, independent of procedures, was spent addressing the patient's acute hypoxemic respiratory failure secondary to angioedema in the setting of an anaphylactic reaction, review of all data and collaboration with the care team. Subjective Subjective The patient was seen and examined at the bedside this morning. Events from the last 24 hours have been reviewed. The patient is currently afebrile, hemodynamically stable and maintaining appropriate oxygen saturations on assist-control mode mechanical ventilation with an FiO2 requirement of 21% and PEEP of 5. Overall, the patient's angioedema continues to improve. She did have a cuff leak noted this morning. No other overnight issues were identified by the nursing staff. White blood cell count is elevated at 19,000 with a hemoglobin of 10.6 g/dL. Creatinine is stable. Objective Data Objective Data The patient's most recent lab work, culture data and imaging studies have all been personally reviewed. Sputum culture dated January 30 appears to be normal respiratory manolo. Vital Signs: Vital Signs Temp Pulse Resp BP Pulse Ox O2 Del Method FiO2 98.5 F 73 14 133/81 H 96 Mechanical Ventilator 21 02/02/24 08:00 02/02/24 08:00 02/02/24 08:00 02/02/24 08:00 02/02/24 08:00 02/02/24 08:00 02/02/24 08:00 Oxygen Delivery Method Mechanical Ventilator Weight: 268 lb 8.368 oz Body Mass Index (BMI) 42.0 Intake & Output: Intake and Output for Last 24 Hours 01/31/24 02/01/24 02/02/24 23:59 23:59 23:59 Intake Total 1391.82 / 1429.32 1971.87 / 2004.57 292.06 / 292.06 Output Total 4000 / 4000 200 / 200 Balance 1391.82 / 579.32 -2028.13 / -1993.43 92.06 / 92.06 Lab / Micro Data Attestation: I reviewed the patient's lab results. 02/02/24 03:50 02/02/24 03:50 Labs: Laboratory Results - last 24 hr 02/01/24 09:20: Lactic Acid 1.9 02/01/24 11:08: POC Glucose 111 H 02/01/24 17:31: POC Glucose 105 02/01/24 23:15: POC Glucose 123 H 02/02/24 03:50: WBC 18.7 H, RBC 3.86 L, Hgb 10.6 L, Hct 33.3 L, MCV 86.3, MCH 27.5, MCHC 31.8 L, RDW Std Deviation 45.6 H, RDW Coeff of Aretha 14.6, Plt Count 283, MPV 9.8, Immature Gran % (Auto) 0.800, Neut % (Auto) 87.4 H, Lymph % (Auto) 8.0 L, [place] % (Auto) 3.7, Eos % (Auto) 0.0, Baso % (Auto) 0.1, Absolute Neuts (auto) 16.3 H, Absolute Lymphs (auto) 1.50, Nucleated RBC % 0, Sodium 136, Potassium 4.0, Chloride 106, Carbon Dioxide 26.0, Anion Gap 4 L, BUN 16, Creatinine 0.67, Estim Creat Clear Calc 144.10, Est GFR (MDRD) Af Amer 122, Est GFR (MDRD) Non-Af 101, BUN/Creatinine Ratio 24.0 H, Glucose 119 H, Calcium 9.3, Phosphorus 3.3, Magnesium 2.2 02/02/24 05:11: POC Glucose 81 Micro: Microbiology 01/31/24 22:10 Sputum, Induced/Lukens Gram Stain - Final 01/31/24 22:10 Sputum, Induced/Lukens Respiratory Culture - Preliminary Appears to be normal respiratory manolo. Further studies to follow. Physical Exam Const Constitutional Narrative: Intubated, sedated and mechanically ventilated. No ventilator dyssynchrony. is present at the bedside. HEENT normocephalic and head/scalp atraumatic HEENT Narrative: The patient is currently intubated through an i-gel, which is in satisfactory position. Improving angioedema is noted. Eyes PERRL, EOMs intact bilaterally and conjunctivae normal Neck supple General: trachea midline Chest inspection of chest normal Resp normal respiratory effort Auscultation: diminished lung sounds Cardio regular rate and regular rhythm GI normal to inspection, nondistended, normoactive bowel sounds Extremity General Extremity: Negative for clubbing or edema Skin no rashes or lesions noted Neuro Sensorium / Orientation: sedated on vent Charges/Coding Procedures Hospitalists Procedures: [id number] Critical Care 1st Hr
[2024-02-02] MEDS: Famotidine 200 MG/20 ML MDV 20 MG in 0.9% Normal Saline (Pres. free 8 ML 300 MG IV ×2 (09:24→20:05)
[2024-02-02] MEDS: fentaNYL drip 100 ML 7.5 MCG CONT INF ×2 (09:45→23:12)
[2024-02-02] MEDS: Dext 5%-0.45% NS 1,000 ML 100 ML IV (10:58)
[2024-02-02] MEDS: Propofol 10MG/Ml 1,000 MG/100 ML Bottle 21.9 MG CONT INF ×3 (11:04→20:07)
[2024-02-02 11:20] LABS: Bedside Glucose 90 mg/dL (74-106)
[2024-02-02 17:02] LABS: Bedside Glucose 104 mg/dL (74-106)
[2024-02-02 23:31] LABS: Bedside Glucose 109 mg/dL (74-106)
[2024-02-03] VITALS (27 sets, daily range): BP systolic 96–163; BP diastolic 55–100; PULSE 61–88; RESP 13–20; TEMP 36–37.8; O2SAT 91–98; BMI 43.0
[2024-02-03] MEDS: Propofol 10MG/Ml 1,000 MG/100 ML Bottle 11 MG CONT INF (04:50)
[2024-02-03] MEDS: MethylPREDNISolone 125 MG/2 ML Vial 40 MG IV ×3 (05:15→19:58)
[2024-02-03] MEDS: DiphenhydrAMINE 50 MG/ML Syringe IV ×3 (05:15→19:59)
[2024-02-03] MEDS: 0.9% Saline Lock 10 ML Syringe IV ×3 (07:31→19:59)
[2024-02-03 07:44] LABS: Absolute Lymphocyte Count 1.54 X10^3/uL (0.83-4.51); Absolute Neutrophil Count 15.5 X10^3/uL (2.0-7.7); Basophil# 0.02 X10^3/uL; Basophil% 0.1 % (0-1); Hematocrit 33.3 % (37-47); Hemoglobin 10.4 g/dL (12.0-15.0); Lymphocyte # 1.54 X10^3/ul (0.83-4.51); Lymphocyte % 8.6 % (19-41); Mean Corp Hgb Conc 31.2 g/dL (32-36); Mean Corpuscular Hgb 27.4 pg (27.0-32.0); Mean Corpuscular Volume 87.9 fL (81-99); Mean Platelet Vol. 9.9 fl (6.2-12.0); Monocyte# 0.86 X10^3/uL; Monocyte% 4.8 % (0-10); NRBC Flagged by Analyzer 0 % (0-5); Neutrophil # 15.46 X10^3/uL (2.7-7.7); Neutrophil % 85.9 % (47-70); Platelet Count 250 K/mm3 (150-450); RBC Distribution Width CV 14.5 % (11.6-14.6); RBC Distribution Width SD 46.8 fl (35.1-43.9); Red Blood Count 3.79 M/mm3 (4.2-5.4)
[2024-02-03 07:51] LABS: Anion Gap 6 (5-15); BUN 19 mg/dL (7-18); BUN/Creat Ratio 30.7 RATIO (10-20); Calcium,Total 9.4 mg/dL (8.5-10.1); Chloride 105 mmol/L (98-107); Creatinine, Serum 0.62 mg/dL (0.55-1.02); EST Glomerular Filtration Rate 110 mL/min (>60); Est Glom Filt Rate - Afr Amer 133 mL/min (>60); Estimated Creatinine Clearance 153.36 ml/min; Glucose 102 mg/dL (74-106); Sodium Level 137 mmol/L (136-145)
--- NOTE | 2024-02-03 08:10 | PN.HOSP_ITS ---
Reason for Visit Reason for Visit: Diagnoses Other specified respiratory disorders (01/31/24) Anaphylactic shock, unspecified, initial encounter (01/31/24) Subjective Subjective Patient seen remains on the vent today appears to be a substantial decrease in the size of her tongue swelling Objective Data Objective Data Vital Signs: Vital Signs Temp Pulse Resp BP Pulse Ox O2 Del Method FiO2 99.6 F H 65 14 141/83 H 97 Mechanical Ventilator 21 02/03/24 04:00 02/03/24 07:00 02/03/24 07:00 02/03/24 07:00 02/03/24 07:00 02/03/24 07:00 02/03/24 07:00 Oxygen Delivery Method Mechanical Ventilator Weight: 124.5 kg Body Mass Index (BMI) 43.0 Intake & Output: Intake and Output for Last 24 Hours 02/01/24 02/02/24 02/03/24 23:59 23:59 23:59 Intake Total 1971.87 / 2005.57 1737.56 / 1754.56 146.43 / 146.43 Output Total 4000 / 4000 1700 / 1700 450 / 450 Balance -2028.13 / -1994.43 37.56 / 54.56 -303.57 / -303.57 Lab / Micro Data 02/03/24 03:10 02/03/24 03:10 Labs: Laboratory Results - last 24 hr 02/02/24 10:58: POC Glucose 90 02/02/24 16:45: POC Glucose 104 02/02/24 23:10: POC Glucose 109 H 02/03/24 03:10: WBC 18.0 H, RBC 3.79 L, Hgb 10.4 L, Hct 33.3 L, MCV 87.9, MCH 27.4, MCHC 31.2 L, RDW Std Deviation 46.8 H, RDW Coeff of Aretha 14.5, Plt Count 250, MPV 9.9, Immature Gran % (Auto) 0.600, Neut % (Auto) 85.9 H, Lymph % (Auto) 8.6 L, [place] % (Auto) 4.8, Eos % (Auto) 0.0, Baso % (Auto) 0.1, Absolute Neuts (auto) 15.5 H, Absolute Lymphs (auto) 1.54, Nucleated RBC % 0, Sodium 137, Potassium 4.0, Chloride 105, Carbon Dioxide 26.0, Anion Gap 6, BUN 19 H, Creatinine 0.62, Estim Creat Clear Calc 153.36, Est GFR (MDRD) Af Amer 133, Est GFR (MDRD) Non-Af 110, BUN/Creatinine Ratio 30.7 H, Glucose 102, Calcium 9.4 Micro: Microbiology 01/31/24 22:10 Sputum, Induced/Lukens Gram Stain - Final 01/31/24 22:10 Sputum, Induced/Lukens Respiratory Culture - Preliminary Appears to be normal respiratory manolo. Further studies to follow. Physical Exam Narrative GENERAL: Sedated on the vent HEENT: ET tube in place EYES; Anicteric, Normal Conjunctiva NECK; supple, normal thyroid, RESPIRATORY: Diminished to auscultation CARDIOVASCULAR: Regular S1 S2, GI: soft, normoactive bowel sounds, : No Renal angle tenderness; EXTREMITIES: No edema, no clubbing, MUSCULOSKELETAL: no muscle wasting NEURO: Sedated on the vent SKIN: No Rash Assessment & Plan Assessment/Plan (1) Anaphylaxis: PLAN: Plan Patient is a 48-year-old lady who was admitted following anaphylactic reaction after food ingestion. Patient was assessed to have a compromised airway resulting in patient being intubated and admitted to the intensive care unit. Patient was also found to have a lactic acid elevation with no source of infection 1. Acute anaphylactic reaction ? Following ingestion of food suspected to be secondary to seafood allergy. Patient is allergic to peanuts. Patient was found to have a compromise airway resulting in patient being intubated and subsequently admitted to the intensive care unit and placed on epinephrine drip ?02/02/2024 epinephrine discontinued. Patient is on famotidine and methylprednisolone ? 02/03/2024; patient seen remains on the vent today appears to be a substantial decrease in the size of her tongue swelling 2. Acute hypoxic respiratory failure ? Secondary to compromised airway following anaphylaxis patient was admitted to the intensive care unit managed with Benadryl Solu-Medrol as well as epinephrine drip with consultation placed to child life therapist ? 02/02/2024; patient remains on the vent 3. Essential hypertension ? Blood pressure currently remains stable 4. GERD ? On PPI 5. Vitamin B12 deficiency ? Patient is on subcu injections q. monthly 6. Class III obesity with BMI of 43.2 ? Complicating care 7. Lactic acidosis ? No evidence of infectious etiology thought to be secondary to increased work of breathing following patient anaphylaxis 8. DVT prophylaxis ? Subcu Lovenox 9. Leukocytosis ? No evidence of infection this is secondary to patient being on steroid we will continue monitoring with daily CBC with differential Time spent in the patient's overall evaluation,decision-making process, review of diagnostic data, adjustment of management, discussion with other providers, nursing nursing and ancillary staff involved in patient's care documentation, 38 minutes Charges/Coding Visit Charges Inpatient E&M: 07049 Subs Hosp L2
--- NOTE | 2024-02-03 10:04 | PN.CC_ITS ---
Assessment & Plan Assessment/Plan (1) Acute airway obstruction: (2) Anaphylactic reaction: PLAN: Plan RECOMMENDATIONS: 1. Proceed with a trial of extubation this morning. 2. Supplemental oxygen, if needed, to maintain saturations at or above 90%. 3. Awaiting results of allergy and food profile. 4. Continue Pepcid, Benadryl and IV steroids as ordered for 1 additional day. 5. Recommend speech therapy evaluation prior to advancement of diet. 6. Continue appropriate DVT prophylaxis. 7. Recommend outpatient follow-up with allergy/immunology after discharge. IMPRESSIONS: 1. Acute hypoxemic respiratory failure Secondary to acute anaphylactic reaction secondary to unknown triggering food ingestion. The patient has a known history of significant food allergies. She is no longer actively being followed by an clinical study manager. The patient appears to have developed significant angioedema after eating at [employer]. As a consequence of this, the patient was emergently intubated for airway protection. The patient has been maintained on corticosteroids, Benadryl and Pepcid with subsequent improvement in her angioedema. Her respiratory status has improved and she was able to pass a breathing trial this morning. Therefore, we will proceed with extubation. In the interim, food allergy profile was currently pending. Ultimately, the patient needs to follow-up with an allergy/immunology provider after discharge. The patient's diet will be advanced once she has been cleared by speech therapy. 2. History of obstructive sleep apnea/GERD/anemia/hypertension/hyperlipidemia/history of gastric sleeve procedure Complicates care, management, recovery and prognosis. Continue supportive measures as noted above. TIME: 35 minutes of critical care time, independent of procedures, was spent addressing the patient's acute hypoxemic respiratory failure secondary to angioedema in the setting of an anaphylactic reaction, review of all data and collaboration with the care team. Subjective Subjective The patient was seen and examined at the bedside this morning. Events from the last 24 hours have been reviewed. The patient is currently afebrile, hemodynamically stable and maintaining appropriate oxygen saturations on assist- control mode mechanical ventilation with an FiO2 requirement of 21% and PEEP of 5. Upon my evaluation of the patient this morning, she was noted to have overall improvement in her presenting angioedema. She had a notable cuff leak on her endotracheal tube when the pilot plant operator balloon was deflated. The patient was subsequently placed on a spontaneous breathing trial, which she completed without complication. The patient is alert and able to follow commands appropriately. Therefore, the decision was made to proceed with extubation. White blood cell count this morning remains elevated at 18,000. Hemoglobin remained stable at 10.4 g/dL. Platelet count is within normal limits. Chemistry profile was unrevealing. Objective Data Objective Data The patient's most recent lab work, culture data and imaging studies have all been personally reviewed. Sputum culture dated January 30 appears to be normal respiratory manolo. Vital Signs: Vital Signs Temp Pulse Resp BP Pulse Ox O2 Del Method FiO2 96.8 F L 63 14 163/89 H 96 Mechanical Ventilator 21 02/03/24 08:00 02/03/24 09:00 02/03/24 09:00 02/03/24 09:00 02/03/24 09:00 02/03/24 09:00 02/03/24 07:05 Oxygen Delivery Method Mechanical Ventilator Weight: 274 lb 7.608 oz Body Mass Index (BMI) 43.0 Intake & Output: Intake and Output for Last 24 Hours 02/01/24 02/02/24 02/03/24 23:59 23:59 23:59 Intake Total 1971.87 / 2005.57 1737.56 / 1754.56 183.43 / 183.43 Output Total 4000 / 4000 1700 / 1700 450 / 450 Balance -2028.13 / -1994.43 37.56 / 54.56 -266.57 / -266.57 Lab / Micro Data Attestation: I reviewed the patient's lab results. 02/03/24 03:10 02/03/24 03:10 Labs: Laboratory Results - last 24 hr 02/02/24 10:58: POC Glucose 90 02/02/24 16:45: POC Glucose 104 02/02/24 23:10: POC Glucose 109 H 02/03/24 03:10: WBC 18.0 H, RBC 3.79 L, Hgb 10.4 L, Hct 33.3 L, MCV 87.9, MCH 27.4, MCHC 31.2 L, RDW Std Deviation 46.8 H, RDW Coeff of Aretha 14.5, Plt Count 250, MPV 9.9, Immature Gran % (Auto) 0.600, Neut % (Auto) 85.9 H, Lymph % (Auto) 8.6 L, [place] % (Auto) 4.8, Eos % (Auto) 0.0, Baso % (Auto) 0.1, Absolute Neuts (auto) 15.5 H, Absolute Lymphs (auto) 1.54, Nucleated RBC % 0, Sodium 137, Potassium 4.0, Chloride 105, Carbon Dioxide 26.0, Anion Gap 6, BUN 19 H, Creatinine 0.62, Estim Creat Clear Calc 153.36, Est GFR (MDRD) Af Amer 133, Est GFR (MDRD) Non-Af 110, BUN/Creatinine Ratio 30.7 H, Glucose 102, Calcium 9.4 Micro: Microbiology 01/31/24 22:10 Sputum, Induced/Lukens Gram Stain - Final 01/31/24 22:10 Sputum, Induced/Lukens Respiratory Culture - Final Mixed normal respiratory manolo. No Streptococcus pneumoniae, beta-hemolytic Streptococcus or Staphylococcus aureus isolated. Physical Exam Const Constitutional Narrative: Remains intubated and mechanically ventilated. Currently tolerating spontaneous mode of mechanical ventilation. remains present at the bedside. HEENT normocephalic and head/scalp atraumatic HEENT Narrative: The patient is currently intubated through an i-gel, which is in satisfactory position. The patient's oropharyngeal edema significantly improved. Eyes PERRL, EOMs intact bilaterally and conjunctivae normal Neck supple General: trachea midline Chest inspection of chest normal Resp normal respiratory effort Auscultation: diminished lung sounds Cardio regular rate and regular rhythm GI normal to inspection, nondistended, normoactive bowel sounds Extremity General Extremity: Negative for clubbing or edema Skin no rashes or lesions noted Neuro Neuro Narrative: Alert and able to follow simple commands without issue. Charges/Coding Procedures Hospitalists Procedures: [id number] Critical Care 1st Hr
[2024-02-03] MEDS: Enoxaparin 40 MG/0.4 ML Syringe SC ×2 (10:46→19:58)
[2024-02-03] MEDS: Famotidine 200 MG/20 ML MDV 20 MG in 0.9% Normal Saline (Pres. free 8 ML 300 MG IV ×2 (10:46→20:02)
[2024-02-03] MEDS: CHLORHEXIDINE GLUC 2% CLOTH 1 EACH TOWELETTE TOPICAL (11:10)
[2024-02-03 13:08] LABS: Clam <0.10 kU/L (Class 0); Codfish <0.10 kU/L (Class 0); Corn <0.10 kU/L (Class 0); Egg, White <0.10 kU/L (Class 0); Milk (Cow) <0.10 kU/L (Class 0); Peanut <0.10 kU/L (Class 0); SCALLOP <0.10 kU/L (Class 0); SESAME SEED 0.18 kU/L (Class 0/I); Shrimp <0.10 kU/L (Class 0); Soybean <0.10 kU/L (Class 0); Walnut, (Food) <0.10 kU/L (Class 0); Wheat <0.10 kU/L (Class 0)
[2024-02-04] VITALS (13 sets, daily range): BP systolic 87–147; BP diastolic 54–94; PULSE 54–75; RESP 15–20; TEMP 36.7–37.2; O2SAT 92–98; BMI 41.8
[2024-02-04 03:47] LABS: Absolute Lymphocyte Count 1.43 X10^3/uL (0.83-4.51); Basophil# 0.02 X10^3/uL; Basophil% 0.2 % (0-1); Eosinophil# 0.01 X10^3/uL; Eosinophils% 0.1 % (0-5); Hematocrit 34.1 % (37-47); Hemoglobin 11.1 g/dL (12.0-15.0); Lymphocyte # 1.43 X10^3/ul (0.83-4.51); Lymphocyte % 10.8 % (19-41); Mean Corp Hgb Conc 32.6 g/dL (32-36); Mean Corpuscular Hgb 27.8 pg (27.0-32.0); Mean Corpuscular Volume 85.3 fL (81-99); Mean Platelet Vol. 9.5 fl (6.2-12.0); Monocyte# 0.74 X10^3/uL; Monocyte% 5.6 % (0-10); NRBC Flagged by Analyzer 0 % (0-5); Neutrophil # 10.98 X10^3/uL (2.7-7.7); Neutrophil % 82.6 % (47-70); Platelet Count 234 K/mm3 (150-450); RBC Distribution Width CV 13.9 % (11.6-14.6); RBC Distribution Width SD 43.3 fl (35.1-43.9); White Blood Count 13.3 K/mm3 (4.4-11.0)
[2024-02-04 04:05] LABS: Anion Gap 8 (5-15); BUN 24 mg/dL (7-18); BUN/Creat Ratio 39.7 RATIO (10-20); Calcium,Total 9.5 mg/dL (8.5-10.1); Chloride 107 mmol/L (98-107); EST Glomerular Filtration Rate 113 mL/min (>60); Est Glom Filt Rate - Afr Amer 137 mL/min (>60); Estimated Creatinine Clearance 160.47 ml/min; Glucose 111 mg/dL (74-106); Sodium Level 139 mmol/L (136-145)
[2024-02-04] MEDS: 0.9% Saline Lock 10 ML Syringe IV (05:11)
[2024-02-04] MEDS: DiphenhydrAMINE 50 MG/ML Syringe IV (05:11)
[2024-02-04] MEDS: MethylPREDNISolone 125 MG/2 ML Vial 40 MG IV (05:12)
--- NOTE | 2024-02-04 08:31 | PN.HOSP_ITS ---
Reason for Visit Reason for Visit: Diagnoses Other specified respiratory disorders (01/31/24) Anaphylactic shock, unspecified, initial encounter (01/31/24) Subjective Subjective Patient was assessed maintained on the vent. Tongue still remains swollen. Plan is for patient to be transferred to [facility]. Objective Data Objective Data Vital Signs: Vital Signs Temp Pulse Resp BP Pulse Ox O2 Del Method FiO2 98.1 F 55 L 18 111/66 93 Room Air 21 02/04/24 08:00 02/04/24 08:00 02/04/24 08:00 02/04/24 08:00 02/04/24 08:00 02/04/24 08:00 02/03/24 07:05 Oxygen Delivery Method Room Air Weight: 121 kg Body Mass Index (BMI) 41.8 Intake & Output: Intake and Output for Last 24 Hours 02/02/24 02/03/24 02/04/24 23:59 23:59 23:59 Intake Total 1737.56 / 1754.56 203.43 / 203.43 Output Total 1700 / 1700 2175 / 2175 Balance 37.56 / 54.56 -1971.57 / -1971.57 Lab / Micro Data 02/04/24 03:40 02/04/24 03:40 Labs: Laboratory Results - last 24 hr 02/01/24 00:55: Clam Allergen <0.10, Codfish Allergen <0.10, [place] Allergen <0.10, Cow's Milk Allergen <0.10, Egg White Allergen <0.10, Peanut Allergen <0.10, [place] Allergen <0.10, Sesame Seed IgE Ab 0.18 H, Shrimp Allergen <0.10, Soybean Allergen <0.10, [place] Allergen <0.10, Wheat Allergen <0.10, RAST Comment Comment 02/04/24 03:40: WBC 13.3 H, RBC 4.00 L, Hgb 11.1 L, Hct 34.1 L, MCV 85.3, MCH 27.8, MCHC 32.6, RDW Std Deviation 43.3, RDW Coeff of Aretha 13.9, Plt Count 234, MPV 9.5, Immature Gran % (Auto) 0.700, Neut % (Auto) 82.6 H, Lymph % (Auto) 10.8 L, [place] % (Auto) 5.6, Eos % (Auto) 0.1, Baso % (Auto) 0.2, Absolute Neuts (auto) 11.0 H, Absolute Lymphs (auto) 1.43, Nucleated RBC % 0, Sodium 139, Potassium 4.0, Chloride 107, Carbon Dioxide 24.0, Anion Gap 8, BUN 24 H, Creatinine 0.60, Estim Creat Clear Calc 160.47, Est GFR (MDRD) Af Amer 137, Est GFR (MDRD) Non-Af 113, BUN/Creatinine Ratio 39.7 H, Glucose 111 H, Calcium 9.5 Micro: Microbiology 01/31/24 22:10 Sputum, Induced/Lukens Gram Stain - Final 01/31/24 22:10 Sputum, Induced/Lukens Respiratory Culture - Final Mixed normal respiratory manolo. No Streptococcus pneumoniae, beta-hemolytic Streptococcus or Staphylococcus aureus isolated. Physical Exam Narrative GENERAL: cooperative HEENT: Atraumatic; normocephalic, tongue remains swollen EYES; Anicteric, Normal Conjunctiva NECK; supple, normal thyroid, RESPIRATORY: Diminished to auscultation CARDIOVASCULAR: Regular S1 S2, GI: soft, normoactive bowel sounds, : No Renal angle tenderness; EXTREMITIES: No edema, no clubbing, MUSCULOSKELETAL: no muscle wasting NEURO: Awake; no lateralizing signs. SKIN: No Rash PSYCH; Flat affect Assessment & Plan Assessment/Plan (1) Anaphylaxis: PLAN: Plan Patient is a 48-year-old lady who was admitted following anaphylactic reaction after food ingestion. Patient was assessed to have a compromised airway resulting in patient being intubated and admitted to the intensive care unit. Patient was also found to have a lactic acid elevation with no source of infection 1. Acute anaphylactic reaction ? Following ingestion of food suspected to be secondary to seafood allergy. Patient is allergic to peanuts. Patient was found to have a compromise airway resulting in patient being intubated and subsequently admitted to the intensive care unit and placed on epinephrine drip ?02/02/2024 epinephrine discontinued. Patient is on famotidine and methylprednisolone ? 02/03/2024; patient seen remains on the vent today appears to be a substantial decrease in the size of her tongue swelling ? 02/04/2024. Patient has successfully been weaned off the vent. Plan is for patient to be transferred to [facility] unit 2. Acute hypoxic respiratory failure ? Secondary to compromised airway following anaphylaxis patient was admitted to the intensive care unit managed with Benadryl Solu-Medrol as well as epinephrine drip with consultation placed to miller wood [employer] ? 02/02/2024; patient remains on the vent 3. Essential hypertension ? Blood pressure currently remains stable 4. GERD ? On PPI 5. Vitamin B12 deficiency ? Patient is on subcu injections q. monthly 6. Class III obesity with BMI of 43.2 ? Complicating care 7. Lactic acidosis ? No evidence of infectious etiology thought to be secondary to increased work of breathing following patient anaphylaxis 8. DVT prophylaxis ? Subcu Lovenox 9. Leukocytosis ? No evidence of infection this is secondary to patient being on steroid we will continue monitoring with daily CBC with differential Time spent in the patient's overall evaluation,decision-making process, review of diagnostic data, adjustment of management, discussion with other providers, nursing nursing and ancillary staff involved in patient's care documentation, 38 minutes Charges/Coding Visit Charges Inpatient E&M: 09900 Subs Hosp L2
--- NOTE | 2024-02-04 10:45 | PCM.PN.INT ---
Assessment & Plan Assessment/Plan (1) Acute airway obstruction: (2) Anaphylactic reaction: PLAN: Plan RECOMMENDATIONS: 1. Swallow evaluation prior to advancement of diet. 2. Supplemental oxygen, if needed, to maintain saturations at or above 90%. 3. Okay to discontinue Benadryl, Pepcid and steroids. 4. Continue appropriate DVT prophylaxis. 5. Encourage incentive spirometer use and mobilize patient as tolerated. 6. Recommend outpatient follow-up with allergy/immunology after discharge. 7. The patient is medically stable for transfer out of the intensive care unit. Will sign off at this time. IMPRESSIONS: 1. Acute hypoxemic respiratory failure Secondary to acute anaphylactic reaction secondary to unknown triggering food ingestion. The patient has a known history of significant food allergies. She is no longer actively being followed by an foreign banknote teller trader. The patient appears to have developed significant angioedema after eating at [employer]. As a consequence of this, the patient was emergently intubated for airway protection. The patient has been maintained on corticosteroids, Benadryl and Pepcid with subsequent improvement in her angioedema. Her respiratory status has improved and she was able to be successfully extubated on February 02. The patient is maintaining appropriate oxygen saturations on room air. Recommend speech therapy evaluation prior to advancement of diet. The patient's Pepcid, Benadryl and corticosteroids will be discontinued. Ultimately, the patient needs to follow-up with an allergy/immunology provider after discharge. 2. History of obstructive sleep apnea/GERD/anemia/hypertension/hyperlipidemia/history of gastric sleeve procedure Complicates care, management, recovery and prognosis. Continue supportive measures as noted above. This note was generated with [employer] dictation software. It may contain incorrect words, spelling, and punctuation that were not noted in checking the note before signing. Subjective Subjective The patient was seen and examined at the bedside this morning. Events from the last 24 hours have been reviewed. The patient is currently afebrile, hemodynamically stable and maintaining appropriate oxygen saturations on room air. No overnight issues were identified by the nursing staff. The patient does endorse the presence of a sore throat this morning. Speech therapy is planning to follow-up with the patient today regarding her swallowing. White count is elevated at 13,000. Hemoglobin is stable. Chemistry profile is within normal limits. Objective Data Objective Data The patient's most recent lab work, culture data and imaging studies have all been personally reviewed. Sputum culture dated January 30 appears to be normal respiratory manolo. Vital Signs: Vital Signs Temp Pulse Resp BP Pulse Ox O2 Del Method FiO2 98.1 F 55 L 18 111/66 93 Room Air 21 02/04/24 08:00 02/04/24 08:00 02/04/24 08:00 02/04/24 08:00 02/04/24 08:00 02/04/24 08:00 02/03/24 07:05 Oxygen Delivery Method Room Air Weight: 266 lb 12.149 oz Body Mass Index (BMI) 41.8 Intake & Output: Intake and Output for Last 24 Hours 02/02/24 02/03/24 02/04/24 23:59 23:59 23:59 Intake Total 1737.56 / 1754.56 203.43 / 203.43 Output Total 1700 / 1700 2175 / 2175 Balance 37.56 / 54.56 -1971.57 / -1971.57 Lab / Micro Data Attestation: I reviewed the patient's lab results. 02/04/24 03:40 02/04/24 03:40 Labs: Laboratory Results - last 24 hr 02/01/24 00:55: Clam Allergen <0.10, Codfish Allergen <0.10, [place] Allergen <0.10, Cow's Milk Allergen <0.10, Egg White Allergen <0.10, Peanut Allergen <0.10, Scallop Allergen <0.10, Sesame Seed IgE Ab 0.18 H, Shrimp Allergen <0.10, Soybean Allergen <0.10, [place] Allergen <0.10, Wheat Allergen <0.10, RAST Comment Comment 02/04/24 03:40: WBC 13.3 H, RBC 4.00 L, Hgb 11.1 L, Hct 34.1 L, MCV 85.3, MCH 27.8, MCHC 32.6, RDW Std Deviation 43.3, RDW Coeff of Aretha 13.9, Plt Count 234, MPV 9.5, Immature Gran % (Auto) 0.700, Neut % (Auto) 82.6 H, Lymph % (Auto) 10.8 L, [place] % (Auto) 5.6, Eos % (Auto) 0.1, Baso % (Auto) 0.2, Absolute Neuts (auto) 11.0 H, Absolute Lymphs (auto) 1.43, Nucleated RBC % 0, Sodium 139, Potassium 4.0, Chloride 107, Carbon Dioxide 24.0, Anion Gap 8, BUN 24 H, Creatinine 0.60, Estim Creat Clear Calc 160.47, Est GFR (MDRD) Af Amer 137, Est GFR (MDRD) Non-Af 113, BUN/Creatinine Ratio 39.7 H, Glucose 111 H, Calcium 9.5 Micro: Microbiology 01/31/24 22:10 Sputum, Induced/Lukens Gram Stain - Final 01/31/24 22:10 Sputum, Induced/Lukens Respiratory Culture - Final Mixed normal respiratory manolo. No Streptococcus pneumoniae, beta-hemolytic Streptococcus or Staphylococcus aureus isolated. Physical Exam Const alert, oriented x3 and no apparent distress General Appearance: cooperative HEENT normocephalic, head/scalp atraumatic and moist oral mucous membranes HEENT Narrative: No significant oropharyngeal edema Eyes PERRL, EOMs intact bilaterally and conjunctivae normal Neck supple General: trachea midline Chest inspection of chest normal Resp normal respiratory effort Auscultation: diminished lung sounds; Negative for rales, rhonchi or wheezes Cardio regular rate and regular rhythm GI normal to inspection, nondistended, normoactive bowel sounds Extremity General Extremity: Negative for clubbing or edema Skin no rashes or lesions noted Neuro CN's II-XII intact bilaterally, moves all extremities and no focal motor deficits Psych Mood & Affect: flat affect Charges/Coding Visit Charges Inpatient E&M: 81580 Subs Hosp L3
[2024-02-04] MEDS: Enoxaparin 40 MG/0.4 ML Syringe SC ×2 (11:39→21:48)
--- NOTE | 2024-02-04 14:42 | CASEMGMT ---
DEON FOERMAN to pt room at this time to f/u on DC plan. Pt is currently being transferred to [facility]. Report called and given to [facility] DEON FOREMAN.
[2024-02-04] MEDS: Acetaminophen 650 MG Suppository RC (17:19)
[2024-02-04] MEDS: Phenol/Sodium Phenolate 180ML 3 SPRAY MUCOUS MEM (22:29)
[2024-02-05 03:44] VITALS: BP 124/78; PULSE 60; RESP 18; TEMP 36.8; O2SAT 95
[2024-02-05 05:51] VITALS: BMI 41.1
[2024-02-05] MEDS: 0.9% Saline Lock 10 ML Syringe IV ×2 (06:55→12:59)
[2024-02-05] MEDS: Ondansetron 4 MG/2 ML Vial IV (06:55)
--- NOTE | 2024-02-05 07:20 | PN.HOSP_ITS ---
Reason for Visit Reason for Visit: Diagnoses Other specified respiratory disorders (01/31/24) Anaphylactic shock, unspecified, initial encounter (01/31/24) Subjective Subjective Patient seen complains of tongue swelling and difficulty swallowing. Objective Data Objective Data Vital Signs: Vital Signs Temp Pulse Resp BP Pulse Ox O2 Del Method FiO2 98.2 F 60 18 124/78 H 95 Room Air 21 02/05/24 03:44 02/05/24 03:44 02/05/24 03:44 02/05/24 03:44 02/05/24 03:44 02/05/24 03:45 02/03/24 07:05 Oxygen Delivery Method Room Air Weight: 119.1 kg Body Mass Index (BMI) 41.1 Intake & Output: Intake and Output for Last 24 Hours 02/03/24 02/04/24 02/05/24 23:59 23:59 23:59 Intake Total 203.43 / 203.43 0 / 0 Output Total 2175 / 2175 Balance -1971.57 / -1971.57 0 / 0 Lab / Micro Data 02/04/24 03:40 02/04/24 03:40 Micro: Microbiology 01/31/24 22:10 Sputum, Induced/Lukens Gram Stain - Final 01/31/24 22:10 Sputum, Induced/Lukens Respiratory Culture - Final Mixed normal respiratory manolo. No Streptococcus pneumoniae, beta-hemolytic Streptococcus or Staphylococcus aureus isolated. Physical Exam Narrative GENERAL: cooperative HEENT: Atraumatic; normocephalic, tongue remains swollen EYES; Anicteric, Normal Conjunctiva NECK; supple, normal thyroid, RESPIRATORY: Diminished to auscultation CARDIOVASCULAR: Regular S1 S2, GI: soft, normoactive bowel sounds, : No Renal angle tenderness; EXTREMITIES: No edema, no clubbing, MUSCULOSKELETAL: no muscle wasting NEURO: Awake; no lateralizing signs. SKIN: Erythema upper chest PSYCH; Flat affect Assessment & Plan Assessment/Plan (1) Anaphylaxis: PLAN: Plan Patient is a 48-year-old lady who was admitted following anaphylactic reaction after food ingestion. Patient was assessed to have a compromised airway resulting in patient being intubated and admitted to the intensive care unit. Patient was also found to have a lactic acid elevation with no source of infection 1. Acute anaphylactic reaction ? Following ingestion of food suspected to be secondary to seafood allergy. Patient is allergic to peanuts. Patient was found to have a compromise airway resulting in patient being intubated and subsequently admitted to the intensive care unit and placed on epinephrine drip ?02/02/2024 epinephrine discontinued. Patient is on famotidine and methylprednisolone ? 02/03/2024; patient seen remains on the vent today appears to be a substantial decrease in the size of her tongue swelling ? 02/04/2024. Patient has successfully been weaned off the vent. Plan is for patient to be transferred to [facility] unit ? 02/05/2024; patient still complains of difficulty swallowing. Will continue with monitoring 2. Acute hypoxic respiratory failure ? Secondary to compromised airway following anaphylaxis patient was admitted to the intensive care unit managed with Benadryl Solu-Medrol as well as epinephrine drip with consultation placed to fluid jet cutter operator ? 02/02/2024; patient remains on the vent 3. Essential hypertension ? Blood pressure currently remains stable 4. GERD ? On PPI 5. Vitamin B12 deficiency ? Patient is on subcu injections q. monthly 6. Class III obesity with BMI of 43.2 ? Complicating care 7. Lactic acidosis ? No evidence of infectious etiology thought to be secondary to increased work of breathing following patient anaphylaxis 8. DVT prophylaxis ? Subcu Lovenox 9. Leukocytosis ? No evidence of infection this is secondary to patient being on steroid we will continue monitoring with daily CBC with differential Time spent in the patient's overall evaluation,decision-making process, review of diagnostic data, adjustment of management, discussion with other providers, nursing nursing and ancillary staff involved in patient's care documentation, 36 minutes Charges/Coding Visit Charges Inpatient E&M: 56646 Subs Hosp L2
[2024-02-05 08:33] VITALS: BP 124/74; PULSE 67; RESP 18; TEMP 36.4; O2SAT 98
[2024-02-05 08:35] LABS: Absolute Lymphocyte Count 3.23 X10^3/uL (0.83-4.51); Absolute Neutrophil Count 7.2 X10^3/uL (2.0-7.7); Basophil# 0.02 X10^3/uL; Basophil% 0.2 % (0-1); Eosinophil# 0.01 X10^3/uL; Eosinophils% 0.1 % (0-5); Hematocrit 38.8 % (37-47); Hemoglobin 12.3 g/dL (12.0-15.0); Lymphocyte # 3.23 X10^3/ul (0.83-4.51); Lymphocyte % 28.8 % (19-41); Mean Corp Hgb Conc 31.7 g/dL (32-36); Mean Corpuscular Hgb 27.6 pg (27.0-32.0); Mean Platelet Vol. 9.5 fl (6.2-12.0); Monocyte# 0.71 X10^3/uL; Monocyte% 6.3 % (0-10); NRBC Flagged by Analyzer 0 % (0-5); Neutrophil # 7.18 X10^3/uL (2.7-7.7); Neutrophil % 64.2 % (47-70); Platelet Count 249 K/mm3 (150-450); RBC Distribution Width CV 13.9 % (11.6-14.6); RBC Distribution Width SD 43.8 fl (35.1-43.9); Red Blood Count 4.46 M/mm3 (4.2-5.4); White Blood Count 11.2 K/mm3 (4.4-11.0)
[2024-02-05] MEDS: Enoxaparin 40 MG/0.4 ML Syringe SC ×2 (08:36→21:31)
[2024-02-05 09:12] LABS: Anion Gap 6 (5-15); BUN 31 mg/dL (7-18); BUN/Creat Ratio 37.8 RATIO (10-20); Calcium,Total 9.8 mg/dL (8.5-10.1); Chloride 107 mmol/L (98-107); Creatinine, Serum 0.82 mg/dL (0.55-1.02); EST Glomerular Filtration Rate 80 mL/min (>60); Est Glom Filt Rate - Afr Amer 96 mL/min (>60); Estimated Creatinine Clearance 114.49 ml/min; Glucose 87 mg/dL (74-106); Magnesium 2.4 mg/dL (1.6-2.6); Phosphorus 3.5 mg/dL (2.5-4.9); Sodium Level 143 mmol/L (136-145)
[2024-02-05] MEDS: KCL 20MEQ in D5.45NS 20 MEQ/1,000 ML IV.SOLN. 100 MEQ IV ×2 (12:43→23:05)
--- NOTE | 2024-02-05 13:38 | CASEMGMT ---
Noted pt to have reassessment of swallow function tomorrow for diet advancement. RN AHSAN into pt room, pt sitting on eob with at bedside. Discussed homegoing needs. Pt denies needs. Discussed that should pt be dc'd over the weekend, a ST rx is placed on chart with green sheet so she will receive it. She is aware that if she is still admitted on Thursday, RN AHSAN will follow up. Pt denies any further needs.
[2024-02-05 14:38] VITALS: BP 111/74; PULSE 67; RESP 18; TEMP 36.6; O2SAT 95
--- NOTE | 2024-02-05 17:06 | CHAPLAIN ---
Type of Pastoral Visit ___ Initial Visit _x__ Follow-up Visit ___ On-call Visit ___ General Patient Visit ___ Spiritual Assessment ___ Family Conference ___ Bereavement ___ Rapid Response ___ Code Blue ___ Other (describe below) Pastoral Care Referral From _x__ Patient ___ Family ___ Nurse ___ Physician ___ Flat Bed Operator ___ Die Cutting Machine Operator ___ Other (describe below) Sacrament/Intervention _x__ Active listening ___ Anointing ___ Roman Catholic ___ Bereavement ___ Communion ___ Stella exploration ___ ___ Life review _x__ Prayer ___ Reconciliation ___ Sacrament of Sick _x__ Supportive presence ___ Wedding ___ Other (describe below) Pastoral Comments follow up to this patient; spouse is with her at bedside; pt was previously in ICU and has made some improvements; pt is still unable to fully swallow and enjoy drink or food; pt admits that this is a difficult situation but acknowledges the improvement and hope for full recovery; offer presence and prayer is received
[2024-02-05] MEDS: Acetaminophen 650 MG Suppository RC (21:31)
[2024-02-05 21:36] VITALS: BP 118/62; PULSE 67; RESP 16; TEMP 37.1; O2SAT 98
[2024-02-06] MEDS: Acetaminophen 650 MG Suppository RC ×4 (02:39→18:44)
[2024-02-06 02:42] VITALS: BP 115/63; PULSE 62; RESP 16; TEMP 36.6; O2SAT 99
[2024-02-06 03:22] VITALS: BMI 41.2
[2024-02-06 05:40] LABS: Absolute Lymphocyte Count 2.03 X10^3/uL (0.83-4.51); Absolute Neutrophil Count 7.1 X10^3/uL (2.0-7.7); Basophil# 0.03 X10^3/uL; Basophil% 0.3 % (0-1); Eosinophil# 0.08 X10^3/uL; Eosinophils% 0.8 % (0-5); Hematocrit 37.4 % (37-47); Hemoglobin 12.1 g/dL (12.0-15.0); Lymphocyte # 2.03 X10^3/ul (0.83-4.51); Lymphocyte % 20.2 % (19-41); Mean Corp Hgb Conc 32.4 g/dL (32-36); Mean Corpuscular Hgb 27.9 pg (27.0-32.0); Mean Corpuscular Volume 86.2 fL (81-99); Mean Platelet Vol. 9.7 fl (6.2-12.0); NRBC Flagged by Analyzer 0 % (0-5); Neutrophil # 7.13 X10^3/uL (2.7-7.7); Neutrophil % 71.1 % (47-70); Platelet Count 281 K/mm3 (150-450); RBC Distribution Width CV 13.7 % (11.6-14.6); RBC Distribution Width SD 42.9 fl (35.1-43.9); Red Blood Count 4.34 M/mm3 (4.2-5.4)
[2024-02-06 06:00] LABS: Anion Gap 6 (5-15); BUN 21 mg/dL (7-18); BUN/Creat Ratio 32.6 RATIO (10-20); Calcium,Total 9.5 mg/dL (8.5-10.1); Chloride 107 mmol/L (98-107); Creatinine, Serum 0.64 mg/dL (0.55-1.02); EST Glomerular Filtration Rate 105 mL/min (>60); Est Glom Filt Rate - Afr Amer 127 mL/min (>60); Estimated Creatinine Clearance 146.69 ml/min; Glucose 95 mg/dL (74-106); Potassium 3.2 mmol/L (3.5-5.1); Sodium Level 140 mmol/L (136-145)
[2024-02-06] MEDS: Enoxaparin 40 MG/0.4 ML Syringe SC ×2 (08:04→21:56)
[2024-02-06 08:33] VITALS: BP 109/76; PULSE 89; RESP 16; TEMP 36.2; O2SAT 97
[2024-02-06] MEDS: KCL 20MEQ in D5.45NS 20 MEQ/1,000 ML IV.SOLN. 100 MEQ IV (09:05)
[2024-02-06 11:27] VITALS: BP 111/80; PULSE 93; RESP 16; TEMP 36.4; O2SAT 99
--- NOTE | 2024-02-06 11:36 | PCM.PN.HOSP ---
Reason for Visit Reason for Visit: Diagnoses Other specified respiratory disorders (01/31/24) Anaphylactic shock, unspecified, initial encounter (01/31/24) Subjective Subjective Saw patient at bedside this morning, present. Patient was sitting at edge of bed, appeared fatigued but otherwise in no acute distress. Continue to report difficulty with swallowing anything including her saliva and noted having a foul-smelling saliva over the past few days. Denies any fevers or chills. No other acute concerns this morning. Objective Data Objective Data Vital Signs: Vital Signs Temp Pulse Resp BP Pulse Ox O2 Del Method FiO2 97.5 F L 93 16 111/80 99 Room Air 21 02/06/24 11:27 02/06/24 11:27 02/06/24 11:27 02/06/24 11:27 02/06/24 11:27 02/06/24 11:27 02/03/24 07:05 Oxygen Delivery Method Room Air Weight: 119.1 kg Body Mass Index (BMI) 41.2 Intake & Output: Intake and Output for Last 24 Hours 02/04/24 02/05/24 02/06/24 23:59 23:59 23:59 Intake Total 1000 / 1000 1000 / 1000 Balance 1000 / 1000 1000 / 1000 Lab / Micro Data 02/06/24 04:40 02/06/24 04:40 Labs: Laboratory Results - last 24 hr 02/06/24 04:40: WBC 10.0, RBC 4.34, Hgb 12.1, Hct 37.4, MCV 86.2, MCH 27.9, MCHC 32.4, RDW Std Deviation 42.9, RDW Coeff of Aretha 13.7, Plt Count 281, MPV 9.7, Immature Gran % (Auto) 0.600, Neut % (Auto) 71.1 H, Lymph % (Auto) 20.2, [place] % (Auto) 7.0, Eos % (Auto) 0.8, Baso % (Auto) 0.3, Absolute Neuts (auto) 7.1, Absolute Lymphs (auto) 2.03, Nucleated RBC % 0, Sodium 140, Potassium 3.2 L, Chloride 107, Carbon Dioxide 27.0, Anion Gap 6, BUN 21 H, Creatinine 0.64, Estim Creat Clear Calc 146.69, Est GFR (MDRD) Af Amer 127, Est GFR (MDRD) Non-Af 105, BUN/Creatinine Ratio 32.6 H, Glucose 95, Calcium 9.5 Micro: Microbiology 01/31/24 22:10 Sputum, Induced/Lukens Gram Stain - Final 01/31/24 22:10 Sputum, Induced/Lukens Respiratory Culture - Final Mixed normal respiratory manolo. No Streptococcus pneumoniae, beta-hemolytic Streptococcus or Staphylococcus aureus isolated. Physical Exam Const alert, oriented x3 and no apparent distress Constitutional Narrative: Middle-age female, class III obesity, mildly fatigued appearing, otherwise sitting up comfortably in bed, in no acute distress. General Appearance: cooperative and comfortable HEENT normocephalic, head/scalp atraumatic and hearing grossly normal bilaterally HEENT Narrative: Tongue remains swollen. Unable to visualize palate well. Eyes PERRL, EOMs intact bilaterally and conjunctivae normal Neck full ROM Chest inspection of chest normal Resp normal respiratory effort, normal air movement, no use of accessory muscles and clear to auscultation bilaterally Cardio regular rate, regular rhythm, no murmurs and peripheral pulses 2+ throughout GI normal to inspection, nondistended, normoactive bowel sounds, soft to palpation, non-tender and non-distended Back/Spine normal ROM Extremity normal to inspection, full ROM and no pedal edema Skin no rashes or lesions noted Psych mental status grossly normal Assessment & Plan Assessment/Plan (1) Anaphylactic reaction: (2) Acute airway obstruction: (3) Dysphagia: PLAN: Plan Patient is a 48-year-old female who presented to [facility] ED on 01/31/2024 after an acute anaphylactic reaction. 1. Acute anaphylactic reaction; acute hypoxic respiratory failure, resolved ? Meat Hostess followed. Occurred following food ingestion suspected secondary to seafood allergy versus peanut allergy. Required emergent intubation on admission. Improved with IV Solu-Medrol, Benadryl, famotidine and epinephrine drip for short period of time. Successfully extubated to nasal cannula on 02/03 and transferred to MedSur unit. Now stable on room air. No need for further treatment for allergic reaction. Allergy panel sent, result pending. 2. Dysphagia secondary to ongoing tongue and palate swelling with concern for superimposed infection ? Speech therapy following. Patient with severe oropharyngeal dysphagia secondary to ongoing palate swelling, recommendation for strict n.p.o. status as of 02/05. Have concern for possible superimposed infection given foul-smelling saliva and excessive phlegm production. Sputum culture on admit was unremarkable, repeat sputum culture sent on 02/05. Will empirically treat with IV Unasyn for now. Patient has now been without nutrition since 01/30. If patient shows no improvement and remains strict n.p.o. status on Wednesday 02/07, will plan for GI consult for evaluation for NG feeding tube placement. Chronic medical conditions: ? Class III obesity: BMI 41 on admit. Encouraged lifestyle modifications. Complicates hospital course, care and prognosis. ? 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 Thompson. Continue home aspirin and Plavix. ? GERD: Continue home PPI. ? Mood disorder: Continue home bupropion. ? Vitamin B12 deficiency: Continue monthly injections on discharge. DVT prophylaxis: Lovenox CODE STATUS: Full code, verified Expected disposition: Home, TBD Total clinical time spent by myself addressing the patient's medical issues, reviewing all the data, and collaborating with patient's care team: 35 minutes. Charges/Coding Visit Charges Inpatient E&M: 67766 Subs Hosp L2
[2024-02-06 12:53] LABS: AST(SGOT) 30 U/L (15-37); Alanine Aminotransfer ALT/SGPT 60 U/L (13-56); Albumin, Serum 3.1 g/dL (3.2-5.0); Alkaline Phosphatase 103 U/L (45-117); Bilirubin, Direct 0.32 mg/dL (0.00-0.30); Globulin 4.2 g/dL (2.2-4.2); Protein, Total 7.3 g/dL (6.4-8.2)
[2024-02-06] MEDS: Ampicillin/Sulbactam 3 GM in 0.9% Normal Saline (100mL MB+) 100 ML IV ×2 (13:04→17:17)
[2024-02-06 15:37] VITALS: BP 110/62; PULSE 72; RESP 16; TEMP 36.7; O2SAT 96
[2024-02-06 21:51] VITALS: BP 111/63; PULSE 72; RESP 16; TEMP 36.4; O2SAT 96
[2024-02-07] VITALS (7 sets, daily range): BP systolic 103–130; BP diastolic 55–84; PULSE 64–99; RESP 15–18; TEMP 36.2–36.9; O2SAT 94–100; BMI 41.1; BMI 43.6
[2024-02-07] MEDS: Ampicillin/Sulbactam 3 GM in 0.9% Normal Saline (100mL MB+) 100 ML IV ×4 (00:28→17:48)
[2024-02-07] MEDS: Acetaminophen 650 MG Suppository RC ×2 (00:28→17:47)
[2024-02-07 07:22] LABS: Absolute Lymphocyte Count 1.97 X10^3/uL (0.83-4.51); Absolute Neutrophil Count 6.2 X10^3/uL (2.0-7.7); Basophil# 0.02 X10^3/uL; Basophil% 0.2 % (0-1); Eosinophil# 0.19 X10^3/uL; Eosinophils% 2.1 % (0-5); Hematocrit 39.1 % (37-47); Hemoglobin 12.6 g/dL (12.0-15.0); Lymphocyte # 1.97 X10^3/ul (0.83-4.51); Lymphocyte % 21.8 % (19-41); Mean Corp Hgb Conc 32.2 g/dL (32-36); Mean Corpuscular Hgb 27.6 pg (27.0-32.0); Mean Corpuscular Volume 85.7 fL (81-99); Mean Platelet Vol. 9.6 fl (6.2-12.0); Monocyte# 0.64 X10^3/uL; Monocyte% 7.1 % (0-10); NRBC Flagged by Analyzer 0 % (0-5); Neutrophil # 6.19 X10^3/uL (2.7-7.7); Neutrophil % 68.4 % (47-70); Platelet Count 271 K/mm3 (150-450); RBC Distribution Width CV 13.7 % (11.6-14.6); RBC Distribution Width SD 42.5 fl (35.1-43.9); Red Blood Count 4.56 M/mm3 (4.2-5.4); White Blood Count 9.1 K/mm3 (4.4-11.0)
[2024-02-07 08:15] LABS: Anion Gap 7 (5-15); BUN 16 mg/dL (7-18); BUN/Creat Ratio 27.7 RATIO (10-20); Calcium,Total 9.2 mg/dL (8.5-10.1); Chloride 107 mmol/L (98-107); Creatinine, Serum 0.58 mg/dL (0.55-1.02); EST Glomerular Filtration Rate 119 mL/min (>60); Est Glom Filt Rate - Afr Amer 144 mL/min (>60); Estimated Creatinine Clearance 161.79 ml/min; Glucose 86 mg/dL (74-106); Potassium 3.6 mmol/L (3.5-5.1); Sodium Level 141 mmol/L (136-145)
[2024-02-07] MEDS: Enoxaparin 40 MG/0.4 ML Syringe SC (09:37)
[2024-02-07] MEDS: Ondansetron 4 MG/2 ML Vial IV (11:59)
--- NOTE | 2024-02-07 12:07 | PCM.PN.HOSP ---
Reason for Visit Reason for Visit: Diagnoses Other specified respiratory disorders (01/31/24) Dysphagia, unspecified (01/31/24) Anaphylactic shock, unspecified, initial encounter (01/31/24) Subjective Subjective Saw patient at bedside this morning, present. Patient was sitting up in bedside chair, in no acute distress. She remained mildly fatigued appearing. She was attempting to eat some ice chips when I saw her. Stated that she felt the same today compared to yesterday, still has not been able to get anything down. Continues to have significant sputum production that is foul-smelling. Denies any fevers or chills. No other new concerns this morning. Discussed with patient and on plans moving forward. Given patient still cannot take in any food or drink and it has been 7 days since last p.o. intake, patient will need to start supplemental nutrition. Called Dr. Zuniga and tentative plan is for placement of feeding tube under endoscopic guidance to minimize risk of trauma to palate with placement and to potentially have some visualization of the palate with placement. Patient and agreeable with this plan. Objective Data Objective Data Vital Signs: Vital Signs Temp Pulse Resp BP Pulse Ox O2 Del Method FiO2 98.5 F 83 18 118/68 100 Room Air 21 02/07/24 09:30 02/07/24 09:30 02/07/24 09:30 02/07/24 09:30 02/07/24 09:30 02/07/24 09:31 02/03/24 07:05 Oxygen Delivery Method Room Air Weight: 119 kg Body Mass Index (BMI) 41.1 Intake & Output: Intake and Output for Last 24 Hours 02/05/24 02/06/24 02/07/24 23:59 23:59 23:59 Intake Total 1000 / 1000 2224 / 2224 254 / 254 Balance 1000 / 1000 2224 / 2224 254 / 254 Lab / Micro Data 02/07/24 06:24 02/07/24 06:24 Labs: Laboratory Results - last 24 hr 02/06/24 04:40: Total Bilirubin 1.00, Direct Bilirubin 0.32 H, AST 30, ALT 60 H, Alkaline Phosphatase 103, Total Protein 7.3, Albumin 3.1 L, Globulin 4.2 02/07/24 06:24: WBC 9.1, RBC 4.56, Hgb 12.6, Hct 39.1, MCV 85.7, MCH 27.6, MCHC 32.2, RDW Std Deviation 42.5, RDW Coeff of Aretha 13.7, Plt Count 271, MPV 9.6, Immature Gran % (Auto) 0.400, Neut % (Auto) 68.4, Lymph % (Auto) 21.8, [place] % (Auto) 7.1, Eos % (Auto) 2.1, Baso % (Auto) 0.2, Absolute Neuts (auto) 6.2, Absolute Lymphs (auto) 1.97, Nucleated RBC % 0, Sodium 141, Potassium 3.6, Chloride 107, Carbon Dioxide 27.0, Anion Gap 7, BUN 16, Creatinine 0.58, Estim Creat Clear Calc 161.79, Est GFR (MDRD) Af Amer 144, Est GFR (MDRD) Non-Af 119, BUN/Creatinine Ratio 27.7 H, Glucose 86, Calcium 9.2 Micro: Microbiology 02/06/24 13:05 Sputum, Expectorated/Coughed Gram Stain - Final 02/06/24 13:05 Sputum, Expectorated/Coughed Respiratory Culture - Preliminary Appears to be normal respiratory manolo. Further studies to follow. 01/31/24 22:10 Sputum, Induced/Lukens Gram Stain - Final 01/31/24 22:10 Sputum, Induced/Lukens Respiratory Culture - Final Mixed normal respiratory manolo. No Streptococcus pneumoniae, beta-hemolytic Streptococcus or Staphylococcus aureus isolated. Physical Exam Const alert, oriented x3 and no apparent distress Constitutional Narrative: Middle-age female, class III obesity, mildly fatigued appearing, otherwise sitting up comfortably in bed, in no acute distress. General Appearance: cooperative and comfortable HEENT normocephalic, head/scalp atraumatic and hearing grossly normal bilaterally HEENT Narrative: Tongue remains swollen. Unable to visualize palate well. Eyes PERRL, EOMs intact bilaterally and conjunctivae normal Neck full ROM Chest inspection of chest normal Resp normal respiratory effort, normal air movement, no use of accessory muscles and clear to auscultation bilaterally Cardio regular rate, regular rhythm, no murmurs and peripheral pulses 2+ throughout GI normal to inspection, nondistended, normoactive bowel sounds, soft to palpation, non-tender and non-distended Back/Spine normal ROM Extremity normal to inspection, full ROM and no pedal edema Skin no rashes or lesions noted Psych mental status grossly normal Assessment & Plan Assessment/Plan (1) Anaphylactic reaction: (2) Acute airway obstruction: (3) Dysphagia: PLAN: Plan Patient is a 48-year-old female who presented to [facility] ED on 01/31/2024 after an acute anaphylactic reaction. 1. Acute anaphylactic reaction; acute hypoxic respiratory failure, resolved ? Photographic Double followed. Occurred following food ingestion suspected secondary to seafood allergy versus peanut allergy. Required emergent intubation on admission. Improved with IV Solu-Medrol, Benadryl, famotidine and epinephrine drip for short period of time. Successfully extubated to nasal cannula on 02/03 and transferred to MedSur unit. Now stable on room air. No need for further treatment for allergic reaction. Allergy panel sent, result pending. 2. Dysphagia secondary to ongoing tongue and palate swelling with concern for superimposed infection ? Speech therapy following. Patient with severe oropharyngeal dysphagia secondary to ongoing palate swelling, recommendation for strict n.p.o. status as of 02/05. Have concern for possible superimposed infection given foul-smelling saliva and excessive phlegm production. Sputum culture on admit was unremarkable, repeat sputum culture sent on 02/05. Will empirically treat with IV Unasyn for now. Patient has now been without nutrition since 01/30. Discussed with Dr. Zuniga and we will plan for feeding tube placement under endoscopic guidance on Wednesday 02/07, GI consult placed. He notably may be able to have some visualization of the palate with placement. If he does not have adequate visualization, will need to discuss with speech therapy on need for possible FEES versus ENT evaluation. Continue strict n.p.o. status. Chronic medical conditions: ? Class III obesity: BMI 41 on admit. Encouraged lifestyle modifications. Complicates hospital course, care and prognosis. ? 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 Thompson. Continue home aspirin and Plavix. ? GERD: Continue home PPI. ? Mood disorder: Continue home bupropion. ? Vitamin B12 deficiency: Continue monthly injections on discharge. DVT prophylaxis: Lovenox CODE STATUS: Full code, verified Expected disposition: Home, TBD Total clinical time spent by myself addressing the patient's medical issues, reviewing all the data, and collaborating with patient's care team: 35 minutes. Charges/Coding Visit Charges Inpatient E&M: 70879 Subs Hosp L2
--- NOTE | 2024-02-07 16:54 | EX.PCM.CON.G ---
HPI Consult Data Date of Consult: 02/08/24 HPI Narrative Reason for Consultation: dysphagia HPI Narrative: FABIENNE FRANKS, is a 48 F who [id number] female who presented to [facility] [place] ED on 01/31/2024 after an acute anaphylactic reaction. Her acute anaphylactic reaction; acute hypoxic respiratory failure, resolved. It was suspected that it occurred following food ingestion suspected secondary to seafood allergy versus peanut allergy. Required emergent intubation on admission. Improved with IV Solu-Medrol, Benadryl, famotidine and epinephrine drip for short period of time. Successfully extubated to nasal cannula on 02/03 and transferred to MedSur unit. Now stable on room air. No need for further treatment for allergic reaction. Allergy panel sent, result pending. She also developed dysphagia secondary to ongoing tongue and palate swelling with concern for superimposed infection. she was evaluated by speech therapy. Speech therapy following. Patient with severe oropharyngeal dysphagia secondary to ongoing palate swelling, recommendation for strict n.p.o. status as of 02/05. There is also have concern for possible superimposed infection given foul-smelling saliva and excessive phlegm production. Sputum culture on admit was unremarkable, repeat sputum culture sent on 02/05. She is getting empirically treated with IV Unasyn for now. Patient has now been without nutrition since 01/30. I was consulted for Dobbhoff tube placement. [facility] Medical History Lung nodules Preventative health care Colon cancer screening UTI (urinary tract infection) CHRISTIANA (obstructive sleep apnea) Chronic fatigue Lung nodule seen on imaging study Family history of early CAD Generalized anxiety disorder Hyperlipidemia Hypertension Arthritis Anemia Migraine headache Seizures Non-smoker CPAP (continuous positive airway pressure) dependence Sleep apnea Leg cramps History of pain when walking History of edema Abnormal uterine bleeding Tiredness Weight loss Back pain Neck pain Varicose veins of both lower extremities Hair loss disorder Chronic back pain Obesity Vitamin B12 deficiency Home Medications ?Medication ?Instructions ?Recorded ?Last Taken ?Type syringe with needle, safety 3 mL #100 ea 03/18/23 Unknown Rx 25 gauge x 1 (Easy Touch SheathLock Syringe with Needle) aspirin 81 mg tablet,delayed 81 mg PO DAILY stent 05/20/23 01/31/24 08:11 History release 81 mg clopidogrel 75 mg tablet (Plavix) 75 mg PO DAILY 12/02/23 11/30/23 History cyanocobalamin (vitamin B-12) 1,000 mcg subcut QMONTH gastric 12/02/23 01/13/24 History 1,000 mcg/mL injection solution sleeve pantoprazole 20 mg tablet,delayed 20 mg PO QDAY #30 tabs 12/16/23 01/31/24 Rx release bupropion HCl 300 mg 24 hr tablet, 300 mg PO DAILY PTSD 02/04/24 01/31/24 History extended release Allergy/AdvReac Type Severity Reaction Status Date / Time peanut Allergy Severe Angioedema Verified 01/31/24 19:30 ibuprofen (From Motrin) AdvReac Intermediate Shortness Verified 01/31/24 17:36 of breath Family History Father Diabetes Heart disease Lung cancer smoker- agent orange Arthritis Cancer Mother High cholesterol Surgical History Hx of hysterectomy Hx of surgical procedure Status post hysterectomy (~10/17/21) Hx laparoscopic cholecystectomy Hx of bilateral cataract extraction History of carpal tunnel surgery of left wrist History of endometrial ablation History of gastric stapling History of History of tonsillectomy History of tubal ligation Social History Smoking Status: Never smoker alcohol intake: never substance use type: does not use caffeine: Yes what type of physical activity do you participate in: none seatbelt use: always do you feel safe at home: Yes additional social history: [employer] in [place] patient works at [employer] evs ROS Review of Systems ROS Unobtainable: due to endotracheal tube Medical Records Data Medical Nutrition Assessment Dietitian: Malnutrition Criteria Met Start: 02/08/24 12:25 Freq: Status: Active Protocol: Document 02/08/24 12:25 ECTOR (Rec: 02/08/24 12:28 SLA [id number]) Nutrition Malnutrition Evidence of Malnutrition Exists Yes Malnutrition (severe): Acute Illness/Injury Evidenced By Suboptimal Energy Intake ( Severe),Weight Loss (Severe) Intake Problem Inadequate Oral Intake Status Inactive Problem Clinical Problem Acute Disease or Injury Related Malnutrition Etiology related to anaphylactic reaction leaving pt with swollen tongue and inability to take oral nutrition x 8 days Signs/Symptoms as evidenced by 8.8% unintentional wt loss and pt meeting <75% of est nutritional needs x 8 days Status Active Problem Recommendation Dietitian Recommendations/Changes When able to start TF, rec Jevity 1.5 at goal rate 50 ml/ hr with 100 ml water flush every 4 hours to provide ~1800 merlyn / 76 gm pro/ 1812 ml free water/day. Would start tf at 10 ml/hr and increase every 12-24 hours as pt tolerates until goal rate achieved. Rec slow start and increase in tf rate d/t risk of refeeding syndrome. Recommend advanced diet as tolerated to Cardiac / Gluten Free diet per AERONAUTICS TEACHER consistency/ texture recommendations. Will continue to follow and monitor for changes in pt nutritional status and make additional recommendations as needed. Lab / Micro Data 02/08/24 06:25 02/08/24 06:25 Labs: Laboratory Results - last 24 hr 02/07/24 20:30: Urine Test Negative 02/08/24 06:25: WBC 8.5, RBC 4.31, Hgb 12.0, Hct 37.0, MCV 85.8, MCH 27.8, MCHC 32.4, RDW Std Deviation 42.9, RDW Coeff of Aretha 13.7, Plt Count 277, MPV 9.5, Immature Gran % (Auto) 0.600, Neut % (Auto) 67.0, Lymph % (Auto) 23.2, [place] % (Auto) 6.6, Eos % (Auto) 2.2, Baso % (Auto) 0.4, Absolute Neuts (auto) 5.7, Absolute Lymphs (auto) 1.96, Nucleated RBC % 0, PT 14.6, INR 1.1, Sodium 143, Potassium 3.5, Chloride 110 H, Carbon Dioxide 25.0, Anion Gap 8, BUN 19 H, Creatinine 0.63, Estim Creat Clear Calc 140.64, Est GFR (MDRD) Af Amer 131, Est GFR (MDRD) Non-Af 108, BUN/Creatinine Ratio 30.3 H, Glucose 92, Calcium 9.6 Micro: Microbiology 02/06/24 13:05 Sputum, Expectorated/Coughed Gram Stain - Final 02/06/24 13:05 Sputum, Expectorated/Coughed Respiratory Culture - Preliminary Appears to be normal respiratory manolo. Further studies to follow. Assessment & Plan Assessment/Plan (1) Anaphylaxis: PLAN: Plan Patient is a 48-year-old lady who was admitted following anaphylactic reaction after food ingestion. Patient was assessed to have a compromised airway resulting in patient being intubated and admitted to the intensive care unit. Patient was also found to have a lactic acid elevation with no source of infection 1. Acute anaphylactic reaction ? Following ingestion of food suspected to be secondary to seafood allergy. Patient is allergic to peanuts. Patient was found to have a compromise airway resulting in patient being intubated and subsequently admitted to the intensive care unit and placed on epinephrine drip. She is extubated and out of the ICU but she still complains of difficulty swallowing and inability to swallow her secretions. She will undergo endoscopic evaluation along with Dobbhoff tube placement. She was explained alternatives, risk and benefits Elizabeth withstanding bleeding, infection, sepsis, perforation, need for return to . She will have an ASA of 3. Charges/Coding Visit Charges Inpatient E&M: 67428 Init Hosp L3
[2024-02-07 21:01] LABS: Internal QC Validated? YES +Cl - CLEAR BKGD; Pregnancy, Urine Negative Negative
[2024-02-08] VITALS (13 sets, daily range): BP systolic 95–127; BP diastolic 54–86; PULSE 66–89; RESP 14–18; TEMP 36.2–36.9; O2SAT 94–100; BMI 41.9
[2024-02-08] MEDS: Ampicillin/Sulbactam 3 GM in 0.9% Normal Saline (100mL MB+) 100 ML IV ×4 (01:24→19:08)
[2024-02-08 06:36] LABS: Absolute Lymphocyte Count 1.96 X10^3/uL (0.83-4.51); Absolute Neutrophil Count 5.7 X10^3/uL (2.0-7.7); Basophil# 0.03 X10^3/uL; Basophil% 0.4 % (0-1); Eosinophil# 0.19 X10^3/uL; Eosinophils% 2.2 % (0-5); Lymphocyte # 1.96 X10^3/ul (0.83-4.51); Lymphocyte % 23.2 % (19-41); Mean Corp Hgb Conc 32.4 g/dL (32-36); Mean Corpuscular Hgb 27.8 pg (27.0-32.0); Mean Corpuscular Volume 85.8 fL (81-99); Mean Platelet Vol. 9.5 fl (6.2-12.0); Monocyte# 0.56 X10^3/uL; Monocyte% 6.6 % (0-10); NRBC Flagged by Analyzer 0 % (0-5); Neutrophil # 5.67 X10^3/uL (2.7-7.7); Platelet Count 277 K/mm3 (150-450); RBC Distribution Width CV 13.7 % (11.6-14.6); RBC Distribution Width SD 42.9 fl (35.1-43.9); Red Blood Count 4.31 M/mm3 (4.2-5.4); White Blood Count 8.5 K/mm3 (4.4-11.0)
[2024-02-08 07:22] LABS: Anion Gap 8 (5-15); BUN 19 mg/dL (7-18); BUN/Creat Ratio 30.3 RATIO (10-20); Calcium,Total 9.6 mg/dL (8.5-10.1); Chloride 110 mmol/L (98-107); Creatinine, Serum 0.63 mg/dL (0.55-1.02); EST Glomerular Filtration Rate 108 mL/min (>60); Est Glom Filt Rate - Afr Amer 131 mL/min (>60); Estimated Creatinine Clearance 140.64 ml/min; Glucose 92 mg/dL (74-106); Potassium 3.5 mmol/L (3.5-5.1); Sodium Level 143 mmol/L (136-145)
[2024-02-08 07:31] LABS: International Normalized Ratio 1.1; Prothrombin Time (Protime)PT. 14.6 SECONDS (11.7-14.9)
[2024-02-08] MEDS: Ondansetron 4 MG/2 ML Vial IV (09:24)
[2024-02-08] MEDS: 0.9% Saline Lock 10 ML Syringe IV ×2 (09:24→19:07)
--- NOTE | 2024-02-08 11:23 | PN.HOSP_ITS ---
Subjective Subjective Doing well, no issues overnight. Has what appears to be thrush Objective Data Objective Data Vital Signs: Vital Signs Temp Pulse Resp BP Pulse Ox O2 Del Method FiO2 97.9 F 72 15 111/64 94 Room Air 21 02/08/24 05:00 02/08/24 05:00 02/08/24 05:00 02/08/24 05:00 02/08/24 05:00 02/08/24 05:00 02/03/24 07:05 Oxygen Delivery Method Room Air Weight: 251 lb 8.759 oz Body Mass Index (BMI) 41.9 Intake & Output: Intake and Output for Last 24 Hours 02/07/24 02/08/24 02/09/24 03:59 03:59 03:59 Intake Total 2336 / 2336 578 / 578 112 / 112 Balance 2336 / 2336 578 / 578 112 / 112 Lab / Micro Data 02/08/24 06:25 02/08/24 06:25 Labs: Laboratory Results - last 24 hr 02/07/24 20:30: Urine Test Negative 02/08/24 06:25: WBC 8.5, RBC 4.31, Hgb 12.0, Hct 37.0, MCV 85.8, MCH 27.8, MCHC 32.4, RDW Std Deviation 42.9, RDW Coeff of Aretha 13.7, Plt Count 277, MPV 9.5, Immature Gran % (Auto) 0.600, Neut % (Auto) 67.0, Lymph % (Auto) 23.2, [place] % (Auto) 6.6, Eos % (Auto) 2.2, Baso % (Auto) 0.4, Absolute Neuts (auto) 5.7, Absolute Lymphs (auto) 1.96, Nucleated RBC % 0, PT 14.6, INR 1.1, Sodium 143, Potassium 3.5, Chloride 110 H, Carbon Dioxide 25.0, Anion Gap 8, BUN 19 H, Creatinine 0.63, Estim Creat Clear Calc 140.64, Est GFR (MDRD) Af Amer 131, Est GFR (MDRD) Non-Af 108, BUN/Creatinine Ratio 30.3 H, Glucose 92, Calcium 9.6 Micro: Microbiology 02/06/24 13:05 Sputum, Expectorated/Coughed Gram Stain - Final 02/06/24 13:05 Sputum, Expectorated/Coughed Respiratory Culture - Preliminary Appears to be normal respiratory manolo. Further studies to follow. 01/31/24 22:10 Sputum, Induced/Lukens Gram Stain - Final 01/31/24 22:10 Sputum, Induced/Lukens Respiratory Culture - Final Mixed normal respiratory manolo. No Streptococcus pneumoniae, beta-hemolytic Streptococcus or Staphylococcus aureus isolated. Physical Exam Narrative General: Alert, Oriented x3, Cooperative, No apparent distress HEENT: Atraumatic, PERRLA, EOMI, Normocephalic Oral: Moist Mucosa Neck: Supple, No JVD Lungs: Diminished, Normal air movement, No rhonchi, No wheeze, No rales Cardiovascular: Regular rate, Regular Rhythm, Normal S1, Normal S2, No murmurs Abdomen: Soft, Non Tender, Non-Distended, No Hepato-splenomegaly Extremities: No edema, Capillary Refill Less than 3 Seconds Skin: No rashes, No breakdown Musculoskeletal: No Tenderness to Palpation of Joints or Extremities Neurological: No focal neurological deficits, Motor Exam 5/5 strength throughout, Sensory exam intact to light touch and pain Psych/Mental Status: Normal Affect, Appropriate Assessment & Plan Assessment/Plan (1) Anaphylactic reaction: (2) Acute airway obstruction: (3) Dysphagia: PLAN: Plan 1. Acute anaphylactic reaction; acute hypoxic respiratory failure, resolved ? Side Seam Tender followed. Occurred following food ingestion suspected secondary to seafood allergy versus peanut allergy. Required emergent intubation on admission. Improved with IV Solu-Medrol, Benadryl, famotidine and epinephrine drip for short period of time. Successfully extubated to nasal cannula on 02/03 and transferred to MedSur unit. Now stable on room air. No need for further treatment for allergic reaction. Allergy panel sent, result pending. 02/08/2024: Allergy testing is positive for sesame seeds, she did eat at [employer] which may have sesame oil though the positive level was equivocal/low at 0.18. Planning for EGD today 2. Dysphagia secondary to ongoing tongue and palate swelling with concern for superimposed infection ? Speech therapy following. Patient with severe oropharyngeal dysphagia secondary to ongoing palate swelling, recommendation for strict n.p.o. status as of 02/05. Have concern for possible superimposed infection given foul-smelling saliva and excessive phlegm production. Sputum culture on admit was unremarkable, repeat sputum culture sent on 02/05. Will empirically treat with IV Unasyn for now. Patient has now been without nutrition since 01/30. Discussed with Dr. Zuniga and we will plan for feeding tube placement under endoscopic guidance on Wednesday 02/07, GI consult placed. He notably may be able to have some visualization of the palate with placement. If he does not have adequate visualization, will need to discuss with speech therapy on need for possible FEES versus ENT evaluation. Continue strict n.p.o. status. 02/08/2024: Still on Unasyn, she was also placed on inhaled budesonide initially on admission. Possible continued swelling and pain with swallowing due to thrush. Will start nystatin swish and swallow Chronic medical conditions: ? Class III obesity: BMI 41 on admit. Encouraged lifestyle modifications. Complicates hospital course, care and prognosis. ? 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 Thompson. Continue home aspirin and Plavix. ? GERD: Continue home PPI. ? Mood disorder: Continue home bupropion. ? Vitamin B12 deficiency: Continue monthly injections on discharge. DVT: Lovenox Charges/Coding Visit Charges Inpatient E&M: 91971 Subs Hosp L2
[2024-02-08] MEDS: NYSTATIN 500,000 UNIT/5 ML UDC 500000 UNIT PO ×4 (11:56→21:05)
--- NOTE | 2024-02-08 15:28 | CHAPLAIN ---
Type of Pastoral Visit ___ Initial Visit _x__ Follow-up Visit ___ On-call Visit ___ General Patient Visit ___ Spiritual Assessment ___ Family Conference ___ Bereavement ___ Rapid Response ___ Code Blue ___ Other (describe below) Pastoral Care Referral From _x__ Patient ___ Family ___ Nurse ___ Physician ___ Operating Room Scheduler ___ Artificial Flowers Dyer ___ Other (describe below) Sacrament/Intervention _x__ Active listening ___ Anointing ___ Methodist ___ Bereavement ___ Communion ___ Stella exploration ___ ___ Life review ___ Prayer ___ Reconciliation ___ Sacrament of Sick _x__ Supportive presence ___ Wedding ___ Other (describe below) Pastoral Comments follow up on this patient who is to have a procedure this afternoon; spouse and daughter are with her but daughter leaves at this time; pt is offered support; pt and spouse give updates on the situation and speak of how they are addressing it all
--- NOTE | 2024-02-08 15:34 | NURSING ---
1510-pt off floor via bed for scheduled procedure
--- NOTE | 2024-02-08 16:08 | PRE.ANES_ITS ---
ASA Classification* ASA Classification ASA Classification: 3 Assessment & Plan Anesthesia* Anesthesia Assessment Anesthesia Assessment: Discussed sedation and/or anesthesia options, risks, benefits, and alternatives with patient/parents/legal guardian/POA. Questions invited. The patient/parents/legal guardian/POA seems to understand and agrees to proceed with anesthesia plan. Reviewed the physical assessment, medical history, allergy history and patient home medications list prior to surgery/procedure/anesthetic and documented any changes. Performed airway and anesthesia risk assessments. Anesthesia Type Anesthesia Type: MAC History Source History Obtained from:: Patient and Chart Anesthesia Focused Assessment* Temperature: 98.1 F Pulse Rate: 75 Blood Pressure: 110/54 Respiratory Rate: 15 Pulse Ox: 100 Oxygen Delivery Method: Room Air Fraction of Inspired Oxygen (FIO2): 21 Airway Assessment Mouth opens: >3 cm Mallampati Score: II Teeth Condition: Intact Neck Range of motion (ROM): Limited ROM (Slight decrease in extension) Focused Labs Anesthesia Preop lab: CBC WBC 8.5 K/mm3 (4.4-11.0) 02/08/24 06:25 RBC 4.31 M/mm3 (4.2-5.4) 02/08/24 06:25 Hgb 12.0 g/dL (12.0-15.0) 02/08/24 06:25 Hct 37.0 % (37-47) 02/08/24 06:25 Plt Count 277 K/mm3 (150-450) 02/08/24 06:25 CHEMISTRY Potassium 3.5 mmol/L (3.5-5.1) 02/08/24 06:25 Sodium 143 mmol/L (136-145) 02/08/24 06:25 Magnesium 2.4 mg/dL (1.6-2.6) 02/05/24 08:16 Phosphorus 3.5 mg/dL (2.5-4.9) 02/05/24 08:16 BUN 19 mg/dL (7-18) H 02/08/24 06:25 Creatinine 0.63 mg/dL (0.55-1.02) 02/08/24 06:25 Glucose 92 mg/dL (74-106) 02/08/24 06:25 POC Glucose 109 mg/dL (74-106) H 02/02/24 23:10 TSH 1.11 uIU/mL (0.358-3.74) 09/23/23 11:55 COAG PT 14.6 SECONDS (11.7-14.9) 02/08/24 06:25 Urine Test Negative Negative 02/07/24 20:30 Pre-Assessment Diagnosis/Proposed Procedure Planned Operative Procedure(s): EGD Anesthesia History 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 When Was Last Pacemaker Check QUESTION #4 FULL TEXT: You/Your Family Experience fever (hyperthermia) with Anesthesia Last Oral Intake Last Oral intake: Last Oral Intake NPO since 00:00 02/07/24 22:44 Meds taken in AM with sips of water? Meds patient instructed to take am of surgery PONV PONV - paving and surfacing labourer: PONV - paving and surfacing labourer Female HX of Motion Sickness HX of N/V After Surgery Non-Smoker Duration of Surgery greater than 60 minutes Number of Risk Factors PONV Score Height & Weight Height & Weight: Anesthesia: Height & Weight Height 5 ft 5 in 02/08/24 12:01 Weight: 114.1 kg 02/08/24 12:01 Body Mass Index (BMI) 41.9 02/08/24 06:00 Respiratory Assessment Respiratory Assessment - paving and surfacing labourer: Respiratory Tract Infection Hx - paving and surfacing labourer Hx Respiratory Tract Infection No 02/08/24 05:31 STOP Sleep Apnea STOP Sleep Apnea - paving and surfacing labourer: STOP Sleep Apnea - paving and surfacing labourer Hx Hypertension No 02/04/24 13:24 Hx Sleep Apnea No 01/31/24 22:00 CPAP Yes 12/04/23 07:35 BIPAP No 12/02/23 09:45 Do you snore loudly (louder No 01/31/24 22:00 than talking or can be heard Do you often feel tired/ No 01/31/24 22:00 fatigued/ sleepy during daytime? Has anyone observed you stop No 01/31/24 22:00 breathing during sleep? STOP Results Negative 01/31/24 22:00 QUESTION #5 FULL TEXT : Do you snore loudly (louder than talking or can be heard through closed doors)? 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 Specify any problems Hx of Preganancy in last 3 No 01/31/24 22:00 Months Nurse Filling Out Transfusion MCLEMENS 01/31/24 22:00 & Questions: Date: 01/31/24 01/31/24 22:00 Time: 22:06 01/31/24 22:00 Patient unable to answer at this time (ie. confused, unrespo /Reproduction History /Reproductive History - paving and surfacing labourer: /Reproductive Hx- paving and surfacing labourer Hx Now No 02/08/24 05:31 Gestational Age (in weeks): EDC: Hx Hx Para Hx Section SAB No 02/07/24 22:44 Active Medications Active Medications: Current Medications Generic Name Dose Route Start Last Admin Trade Name Freq PRN Reason Stop Dose Admin Acetaminophen 650 mg 01/31/24 21:58 Acetaminophen 325 Mg Tablet PO Q4H PRN PRN Fever, pain 1-10/10 Acetaminophen 650 mg 01/31/24 21:58 02/07/24 17:47 Acetaminophen 650 Mg Suppository RC 650 mg Q4H PRN PRN Administration Fever, pain 1-10 Albuterol Sulfate 2.5 mg 01/31/24 21:58 Albuterol 2.5 Mg/3 Ml Vial.Neb. INHALATION Q2H PRN PRN Dyspnea, wheezing Aspirin 81 mg 02/01/24 10:00 02/08/24 07:10 Aspirin E.C. 81 Mg Tablet PO Not Given DAILY [facility] Bupropion HCl 100 mg 02/01/24 10:00 02/08/24 07:11 Bupropion (Sr) 100 Mg Tablet.Sa PO Not Given DAILY [facility] Clopidogrel Bisulfate 75 mg 02/01/24 10:00 02/08/24 07:11 Clopidogrel Bisulfate 75 Mg Tablet PO Not Given DAILY [facility] Enoxaparin Sodium 40 mg 01/31/24 22:00 02/08/24 07:11 Enoxaparin 40 Mg/0.4 Ml Syringe SC Not Given BID MICA Hydralazine HCl 10 mg 01/31/24 21:58 Hydralazine 20 Mg/Ml Vial IV Q4H PRN PRN SBP > 160 Protocol Ampicillin Sodium/Sulbactam 112 mls @ 150 mls/hr 02/06/24 12:05 02/08/24 12:50 Sodium 3 gm/ Sodium Chloride IV Infused Q6 MICA Infusion Sodium Chloride 500 mls @ 15 mls/hr 02/07/24 01:33 IV .[id number] PRN Saline Flush Sodium Chloride 500 mls @ 15 mls/hr 02/07/24 01:33 IV .[id number] PRN Additional IVPB Infusion Nystatin 500,000 unit 02/08/24 10:00 02/08/24 14:18 Nystatin 500,000 Unit/5 Ml Udc PO 500,000 unit 4X/DAY MICA Administration Ondansetron HCl 4 mg 01/31/24 21:58 02/08/24 09:24 Ondansetron 4 Mg/2 Ml Vial IV 4 mg Q8H PRN PRN Administration NAUSEA/VOMITING Pantoprazole Sodium 20 mg 02/01/24 10:00 02/08/24 07:11 Pantoprazole Sodium 20 Mg Tablet PO Not Given DAILY [facility] Phenol/Menthol 3 spray 02/04/24 21:55 02/04/24 22:29 Phenol/Sodium Phenolate 180ml MUCOUS MEM 3 spray Q2H PRN PRN Administration SORE THROAT Prochlorperazine Edisylate 5 mg 01/31/24 21:58 Prochlorperazine 10 Mg/2 Ml Vial IV Q4H PRN PRN Breakthrough Nausea/Vomiting Sodium Chloride 5 ml 01/31/24 21:58 Sodium Cl For Inhalation 15 Ml Vial.Neb. INHALATION Q5M PRN Suctioning Sodium Chloride 10 - 40 ml 01/31/24 22:15 02/08/24 09:24 0.9% Saline Lock 10 Ml Syringe IV 10 ml UD PRN Administration SALINE FLUSH PFSH Medical History Lung nodules Preventative health care Colon cancer screening UTI (urinary tract infection) CHRISTIANA (obstructive sleep apnea) Chronic fatigue Lung nodule seen on imaging study Family history of early CAD Generalized anxiety disorder Hyperlipidemia Hypertension Arthritis Anemia Migraine headache Seizures Non-smoker CPAP (continuous positive airway pressure) dependence Sleep apnea Leg cramps History of pain when walking History of edema Abnormal uterine bleeding Tiredness Weight loss Back pain Neck pain Varicose veins of both lower extremities Hair loss disorder Chronic back pain Obesity Vitamin B12 deficiency Home Medications ?Medication ?Instructions ?Recorded ?Last Taken ?Type syringe with needle, safety 3 mL #100 ea 03/18/23 Unknown Rx 25 gauge x 1 (Easy Touch SheathLock Syringe with Needle) aspirin 81 mg tablet,delayed 81 mg PO DAILY stent 05/20/23 01/31/24 08:11 History release 81 mg clopidogrel 75 mg tablet (Plavix) 75 mg PO DAILY 12/02/23 11/30/23 History cyanocobalamin (vitamin B-12) 1,000 mcg subcut QMONTH gastric 12/02/23 01/13/24 History 1,000 mcg/mL injection solution sleeve pantoprazole 20 mg tablet,delayed 20 mg PO QDAY #30 tabs 12/16/23 01/31/24 Rx release bupropion HCl 300 mg 24 hr tablet, 300 mg PO DAILY PTSD 02/04/24 01/31/24 History extended release Allergy/AdvReac Type Severity Reaction Status Date / Time peanut Allergy Severe Angioedema Verified 01/31/24 19:30 ibuprofen (From Motrin) AdvReac Intermediate Shortness Verified 01/31/24 17:36 of breath Family History Father Diabetes Heart disease Lung cancer smoker- agent orange Arthritis Cancer Mother High cholesterol Surgical History Hx of hysterectomy Hx of surgical procedure Status post hysterectomy (~10/17/21) Hx laparoscopic cholecystectomy Hx of bilateral cataract extraction History of carpal tunnel surgery of left wrist History of endometrial ablation History of gastric stapling History of History of tonsillectomy History of tubal ligation Social History Smoking Status: Never smoker alcohol intake: never substance use type: does not use caffeine: Yes what type of physical activity do you participate in: none seatbelt use: always do you feel safe at home: Yes additional social history: [employer] in [place] patient works at [employer] evs Review of Systems (Anesthesia) ROS Narrative System reviewed and no additional complaints, except as documented.
--- NOTE | 2024-02-08 17:23 | PCM.POST.ANE ---
Anesthesia: Postop Eval I Current Vital Signs Temperature: 97.6 F Pulse Rate: 89 Blood Pressure: 108/79 Respiratory Rate: 18 Pulse Ox: 99 Oxygen Delivery Method: Room Air Assessment Airway patent: Yes Spontaneous unlabored respirations: Yes Mental status: Awake nausea: No Vomiting: No Anesthesia Complication: No Fluid Hydration Crystalloid volume administer (ml): 30 Total IV fluid infused: 30 Progress Note Anesthesia document: Postop Eval 1 completed: Yes
--- NOTE | 2024-02-08 17:30 | RAD_ITS ---
We are attempting to reach an attending provider to discuss findings. An addendum with communication details will be sent when the communication is complete. STUDY: X-RAY - ABDOMEN/PELVIS REASON FOR EXAM: Female, 48 years old. FEEDING TUBE PLACEMENT TECHNIQUE: KUB COMPARISON: None. FINDINGS: Normal visualized lung bases. There is an unremarkable bowel gas pattern. There is no demonstrated free abdominal air. The visualized liver, spleen and kidneys are grossly normal in size and morphology. Feeding tube placement noted with tip in the proximal gastric fundus and should be advanced Postop change in the right upper quadrant. Dorsal spine demonstrates minor scoliosis and degenerative change RAD/Abdomen Single View (Portable) IMPRESSION: Feeding tube placement with tip in proximal gastric fundus and should be advanced Electronically Signed: James Jacobson MD at 19:00 EST ,
--- NOTE | 2024-02-08 17:53 | PCM.POSTANE2 ---
Anesthesia Postop Eval I Sum Postop Eval Completion status Anesthesia document: Postop Eval 1 completed: Yes Anesthesia Postop Eval I Summary Anesthesia Postop Eval I Summary: Anesthesia Postop Eval I: Assessment Summary Airway patent Yes 02/08/24 17:24 [email or web address] Spontaneous unlabored Yes 02/08/24 17:24 [email or web address] respirations Mental status Awake 02/08/24 17:24 [email or web address] nausea No 02/08/24 17:24 [email or web address] Vomiting No 02/08/24 17:24 [email or web address] Anesthesia Postop Eval I: Fluid Summary Crystalloid volume administer 30 02/08/24 17:24 [email or web address] (ml) Colloids volume administered ( ml) Blood Product volume administered (ml) Total IV fluid infused 30 02/08/24 17:24 [email or web address] Anesthesia Postop Eval I: Summary Notes Anesthesia Complication No 02/08/24 17:24 [email or web address] Anesthesia Complication Comment: Post-operative progress note Anesthesia: Postop Eval II Evaluation Mental status: Awake Pain Level: 0 nausea: No Vomiting: No
--- NOTE | 2024-02-08 18:30 | OP.EGD_ITS ---
Patient Name: Yelena Caceres Procedure Date: 02/08/2024 4:40 PM Date of : 1975 Age: 48 Procedure: Upper GI endoscopy Indications: Dysphagia, Odynophagia Providers: Brian Zuniga DO Medicines: Monitored Anesthesia Care Patient Profile: This is a 48 year old female. Refer to note in patient chart for documentation of history and physical. Patient has symptoms of dysphagia with both liquids and solids. Complications: No immediate complications. Procedure: Pre-Anesthesia Assessment: - Prior to the procedure, a History and Physical was performed, and patient medications and allergies were reviewed. The patient is competent. The risks and benefits of the procedure and the sedation options and risks were discussed with the patient. All questions were answered and informed consent was obtained. Patient identification and proposed procedure were verified by the physician in the pre-procedure area. Mental Status Examination: alert and oriented. Airway Examination: normal oropharyngeal airway and neck mobility. Respiratory Examination: clear to auscultation. CV Examination: normal. Prophylactic Antibiotics: The patient does not require prophylactic antibiotics. Prior Anticoagulants: The patient has taken no anticoagulant or antiplatelet agents. ASA Grade Assessment: II - A patient with mild systemic disease. After reviewing the risks and benefits, the patient was deemed in satisfactory condition to undergo the procedure. The anesthesia plan was to use monitored anesthesia care (MAC). Immediately prior to administration of medications, the patient was re-assessed for adequacy to receive sedatives. The heart rate, respiratory rate, oxygen saturations, blood pressure, adequacy of pulmonary ventilation, and response to care were monitored throughout the procedure. The physical status of the patient was re-assessed after the procedure. After obtaining informed consent, the endoscope was passed under direct vision. Throughout the procedure, the patient's blood pressure, pulse, and oxygen saturations were monitored continuously. The Endoscope was introduced through the mouth, and advanced to the second part of duodenum. The upper GI endoscopy was accomplished without difficulty. The patient tolerated the procedure well. Scope In: 5:04:37 PM Scope Out: 5:15:27 PM Total Procedure Duration Time 0 hours 10 minutes 50 seconds Findings: Laryngeal edema was visualized, most prominently diffusely, throughout the larynx. The edema is not obstructing the airway. Ulceration was found diffusely, throughout the larynx. The examined esophagus was normal. No gross lesions were noted in the entire examined stomach. No gross lesions were noted in the duodenal bulb. A 14 Fr nasogastric tube was placed through the nares into the esophagus. Under endoscopic guidance, the tube was advanced into the stomach. Placement was confirmed by scope visualization. Impression: - Laryngeal edema was found. - Ulceration was found diffusely, throughout the larynx. - Normal esophagus. - No gross lesions in the entire stomach. - No gross lesions in the duodenal bulb. - Feeding tube placement was successfully performed. - No specimens collected. Recommendation: - Discharge patient to home. - Clear liquid diet. - Continue present medications. - Start tube feedings -Consult nutrition -Consult ENT Procedure Code(s): --- Professional --- 25857, Esophagogastroduodenoscopy, flexible, transoral; with insertion of intraluminal tube or catheter CPT copyright 2021 [employer]. All rights reserved. The codes documented in this report are preliminary and upon undercover agent review may be revised to meet current compliance requirements. Brian Zuniga DO 02/08/2024 6:30:28 PM This report has been signed electronically. Number of Addenda: 0 Note Initiated On: 02/08/2024 4:40 PM
--- NOTE | 2024-02-08 18:31 | OP.CCLET_ITS ---
02/08/[address] [facility], Single Fold Machine Operator-c Re : Upper GI endoscopy procedure for Yelena Caceres Dear Nehal This procedure was performed on Thursday, February 08, 2024. My impressions and recommendations are as follows: Impressions : - Laryngeal edema was found. - Ulceration was found diffusely, throughout the larynx. - Normal esophagus. - No gross lesions in the entire stomach. - No gross lesions in the duodenal bulb. - Feeding tube placement was successfully performed. - No specimens collected. Recommendations : - Discharge patient to home. - Clear liquid diet. - Continue present medications. - Start tube feedings -Consult nutrition -Consult ENT My findings are described in the full procedure note, which is enclosed. If I can be of further assistance, please feel free to contact me at . Sincerely, Brian Zuniga, 02/08/2024 6:30:28 PM This report has been signed electronically.
--- NOTE | 2024-02-08 20:38 | NURSING ---
RCVD CALL FROM [facility] RADIOLOGY RE: REINIER PLACEMENT. PER DR RIVERS (RADIOLOGIST), THE TIP IS IN THE PROXIMAL GASTRIC FUNDUS AND SHOULD BE ADVANCED. PAGED DR SILVESTRE & INFORMED HIM. CHARGE NURSE PAGED TOOLING ENGINEER TO VERIFY THAT NURSING IS NOT PERMITTED TO ADVANCE REINIER. DR SILVESTRE MADE AWARE. HOLDING JEVITY AT THIS TIME
[2024-02-08] MEDS: Enoxaparin 40 MG/0.4 ML Syringe SC (21:05)
[2024-02-09] MEDS: Ampicillin/Sulbactam 3 GM in 0.9% Normal Saline (100mL MB+) 100 ML IV ×2 (00:01→05:09)
[2024-02-09 05:00] VITALS: BP 121/64; PULSE 63; RESP 15; TEMP 36.6; O2SAT 100
[2024-02-09 05:43] VITALS: BMI 42.7
[2024-02-09 07:50] LABS: Absolute Lymphocyte Count 2.69 X10^3/uL (0.83-4.51); Basophil# 0.04 X10^3/uL; Basophil% 0.3 % (0-1); Eosinophil# 0.02 X10^3/uL; Eosinophils% 0.2 % (0-5); Hematocrit 39.3 % (37-47); Hemoglobin 13.4 g/dL (12.0-15.0); Lymphocyte # 2.69 X10^3/ul (0.83-4.51); Lymphocyte % 23.3 % (19-41); Mean Corp Hgb Conc 34.1 g/dL (32-36); Mean Corpuscular Hgb 29.3 pg (27.0-32.0); Mean Platelet Vol. 9.9 fl (6.2-12.0); Monocyte# 0.67 X10^3/uL; Monocyte% 5.8 % (0-10); NRBC Flagged by Analyzer 0 % (0-5); Neutrophil # 8.04 X10^3/uL (2.7-7.7); Neutrophil % 69.8 % (47-70); Platelet Count 372 K/mm3 (150-450); RBC Distribution Width CV 13.7 % (11.6-14.6); RBC Distribution Width SD 42.6 fl (35.1-43.9); Red Blood Count 4.57 M/mm3 (4.2-5.4); White Blood Count 11.5 K/mm3 (4.4-11.0)
[2024-02-09 08:00] VITALS: BP 113/71; PULSE 72; RESP 14; TEMP 36.4; O2SAT 99
[2024-02-09 08:10] LABS: Anion Gap 8 (5-15); BUN 21 mg/dL (7-18); BUN/Creat Ratio 33.9 RATIO (10-20); Calcium,Total 10.5 mg/dL (8.5-10.1); Chloride 110 mmol/L (98-107); Creatinine, Serum 0.62 mg/dL (0.55-1.02); EST Glomerular Filtration Rate 110 mL/min (>60); Est Glom Filt Rate - Afr Amer 133 mL/min (>60); Estimated Creatinine Clearance 144.62 ml/min; Glucose 80 mg/dL (74-106); Potassium 3.8 mmol/L (3.5-5.1); Sodium Level 140 mmol/L (136-145)
[2024-02-09] MEDS: Enoxaparin 40 MG/0.4 ML Syringe SC ×2 (08:20→23:15)
[2024-02-09] MEDS: NYSTATIN 500,000 UNIT/5 ML UDC 500000 UNIT PO ×4 (08:20→23:15)
--- NOTE | 2024-02-09 09:02 | PN.HOSP_ITS ---
Subjective Subjective Feels like her oral lesions are doing little bit better. Unfortunately the feeding tube needs to be advanced further, GI has been contacted for this Objective Data Objective Data Vital Signs: Vital Signs Temp Pulse Resp BP Pulse Ox O2 Del Method FiO2 97.5 F L 72 14 113/71 99 Room Air 21 02/09/24 08:00 02/09/24 08:00 02/09/24 08:00 02/09/24 08:00 02/09/24 08:00 02/09/24 08:00 02/08/24 16:15 Oxygen Delivery Method Room Air Weight: 256 lb 13.416 oz Body Mass Index (BMI) 42.7 Intake & Output: Intake and Output for Last 24 Hours 02/08/24 02/09/24 02/10/24 03:59 03:59 03:59 Intake Total 578 / 578 448 / 448 112 / 112 Balance 578 / 578 448 / 448 112 / 112 Medical Nutrition Assessment Dietitian: Malnutrition Criteria Met Start: 02/08/24 12:25 Freq: Status: Active Protocol: Document 02/08/24 12:25 SLA (Rec: 02/08/24 12:28 SLA [id number]) Nutrition Malnutrition Evidence of Malnutrition Exists Yes Malnutrition (severe): Acute Illness/Injury Evidenced By Suboptimal Energy Intake ( Severe),Weight Loss (Severe) Intake Problem Inadequate Oral Intake Status Inactive Problem Clinical Problem Acute Disease or Injury Related Malnutrition Etiology related to anaphylactic reaction leaving pt with swollen tongue and inability to take oral nutrition x 8 days Signs/Symptoms as evidenced by 8.8% unintentional wt loss and pt meeting <75% of est nutritional needs x 8 days Status Active Problem Recommendation Dietitian Recommendations/Changes When able to start TF, rec Jevity 1.5 at goal rate 50 ml/ hr with 100 ml water flush every 4 hours to provide ~1800 merlyn / 76 gm pro/ 1812 ml free water/day. Would start tf at 10 ml/hr and increase every 12-24 hours as pt tolerates until goal rate achieved. Rec slow start and increase in tf rate d/t risk of refeeding syndrome. Recommend advanced diet as tolerated to Cardiac / Gluten Free diet per PICKLING DRUM OPERATOR consistency/ texture recommendations. Will continue to follow and monitor for changes in pt nutritional status and make additional recommendations as needed. Lab / Micro Data 02/09/24 07:32 02/09/24 07:32 Labs: Laboratory Results - last 24 hr 02/09/24 07:32: WBC 11.5 H, RBC 4.57, Hgb 13.4, Hct 39.3, MCV 86.0, MCH 29.3, M CHC 34.1 D, RDW Std Deviation 42.6, RDW Coeff of Aretha 13.7, Plt Count 372, MPV 9.9, Immature Gran % (Auto) 0.600, Neut % (Auto) 69.8, Lymph % (Auto) 23.3, Archer % (Auto) 5.8, Eos % (Auto) 0.2, Baso % (Auto) 0.3, Absolute Neuts (auto) 8.0 H, Absolute Lymphs (auto) 2.69, Nucleated RBC % 0, Sodium 140, Potassium 3.8, C hloride 110 H, Carbon Dioxide 22.0, Anion Gap 8, BUN 21 H, Creatinine 0.62, Estim Creat Clear Calc 144.62, Est GFR (MDRD) Af Amer 133, Est GFR (MDRD) Non-Af 110, BUN/Creatinine Ratio 33.9 H, Glucose 80, Calcium 10.5 H Micro: Microbiology 02/06/24 13:05 Sputum, Expectorated/Coughed Gram Stain - Final 02/06/24 13:05 Sputum, Expectorated/Coughed Respiratory Culture - Preliminary Appears to be normal respiratory manolo. Further studies to follow. 01/31/24 22:10 Sputum, Induced/Lukens Gram Stain - Final 01/31/24 22:10 Sputum, Induced/Lukens Respiratory Culture - Final Mixed normal respiratory manolo. No Streptococcus pneumoniae, beta-hemolytic Streptococcus or Staphylococcus aureus isolated. Radiography Diagnostic Testing: Radiology Impression KUB X-Ray 02/08/24 17:30 IMPRESSION: Feeding tube placement with tip in proximal gastric fundus and should be advanced Electronically Signed: James Jacobson MD at 19:00 EST , ADDENDUM: 02/08/242033 IMPRESSION: Feeding tube placement with tip in proximal gastric fundus and should be advanced N.B. : The above Results were Read Back by James Jacobson MD to Charis Montez RN, and understanding confirmed on 02/08/2024 20:27:40 (ET). Electronically Signed: James Jacobson MD at 19:00 EST Reading Location ID and State: [address] [place] [address] Tel , Service support , Physical Exam Narrative General: Alert, Oriented x3, Cooperative, No apparent distress HEENT: Atraumatic, PERRLA, EOMI, Normocephalic, feeding tube in right nostril Oral: Moist Mucosa Neck: Supple, No JVD Lungs: Diminished, Normal air movement, No rhonchi, No wheeze, No rales Cardiovascular: Regular rate, Regular Rhythm, Normal S1, Normal S2, No murmurs Abdomen: Soft, Non Tender, Non-Distended, No Hepato-splenomegaly Extremities: No edema, Capillary Refill Less than 3 Seconds Skin: No rashes, No breakdown Musculoskeletal: No Tenderness to Palpation of Joints or Extremities Neurological: No focal neurological deficits, Motor Exam 5/5 strength throughout, Sensory exam intact to light touch and pain Psych/Mental Status: Normal Affect, Appropriate Assessment & Plan Assessment/Plan (1) Anaphylactic reaction: (2) Acute airway obstruction: (3) Dysphagia: PLAN: Plan 1. Acute anaphylactic reaction; acute hypoxic respiratory failure, resolved ? Bench Boring Machine Operator followed. Occurred following food ingestion suspected secondary to seafood allergy versus peanut allergy. Required emergent intubation on admission. Improved with IV Solu-Medrol, Benadryl, famotidine and epinephrine drip for short period of time. Successfully extubated to nasal cannula on 02/03 and transferred to MedSurg unit. Now stable on room air. No need for further treatment for allergic reaction. Allergy panel sent, result pending. 02/08/2024: Allergy testing is positive for sesame seeds, she did eat at [employer] which may have sesame oil though the positive level was equivocal/low at 0.18. Planning for EGD today 2. Dysphagia secondary to ongoing tongue and palate swelling with concern for superimposed infection ? Speech therapy following. Patient with severe oropharyngeal dysphagia secondary to ongoing palate swelling, recommendation for strict n.p.o. status as of 02/05. Have concern for possible superimposed infection given foul-smelling saliva and excessive phlegm production. Sputum culture on admit was unremarkable, repeat sputum culture sent on 02/05. Will empirically treat with IV Unasyn for now. Patient has now been without nutrition since 01/30. Discussed with Dr. Zuniga and we will plan for feeding tube placement under endoscopic guidance on Wednesday 02/07, GI consult placed. He notably may be able to have some visualization of the palate with placement. If he does not have adequate visualization, will need to discuss with speech therapy on need for possible FEES versus ENT evaluation. Continue strict n.p.o. status. 02/08/2024: Still on Unasyn, she was also placed on inhaled budesonide initially on admission. Possible continued swelling and pain with swallowing due to thrush. Will start p.o. nystatin 02/09/2024: Dobbhoff tube is in the gastric fundus, will need to be advanced. Sputum cultures are negative and she has had 3 days of Unasyn, will discontinue Chronic medical conditions: ? Class III obesity: BMI 41 on admit. Encouraged lifestyle modifications. Complicates hospital course, care and prognosis. ? 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 Thompson. Continue home aspirin and Plavix. ? GERD: Continue home PPI. ? Mood disorder: Continue home bupropion. ? Vitamin B12 deficiency: Continue monthly injections on discharge. DVT: Lovenox Charges/Coding Visit Charges Inpatient E&M: 24199 Subs Hosp L2
--- NOTE | 2024-02-09 09:18 | NURSING ---
text sent to dr sevilla, pt still npo and do not have any ativan to premedicate pt
--- NOTE | 2024-02-09 10:47 | CASEMGMT ---
Discharge Planning A list of HH providers including quality and resource use data and consistent with the patient's preferred geographic region, medical needs, and insurance network was created in [facility].? This list was provided to the RN AHSAN. Esperanza Vieira, Discharge Planning Asst.
[2024-02-09] MEDS: BMX LIQUID 180 ML 10 ML PO ×2 (11:21→23:50)
--- NOTE | 2024-02-09 11:49 | CASEMGMT ---
Addendum entered by Josy Unger 02/09/24 15:44: RN AHSAN into pt room, pt aware that she needs to be homebound to have HHC. Discussed ST as an outpt. Made aware the request was made to see if I can send a nurse for education prior to dc'ing from the hospital. Pt verbalizes understanding. Pt feedings started. Addendum entered by Josy Unger 02/09/24 13:14: Referral sent to [facility] to check benefits and see if there is availability for teaching at the hospital. Pt has not yet started feedings at this time. Hospitalist on floor to advance tube. Addendum entered by Josy Unger 02/09/24 13:03: Received t/c back from [facility], pt does need to be homebound for services despite dobhoff. Referral cancelled at this time. Will proceed with outpt ST. Original Note: RN AHSAN into pt room, discussed with pt options for homegoing such as HHC vs outpt. Pt would be interested in [facility] nurse coming to the home to teach and monitor tube feedings. Provided pt with a list of HHC options created by dc automotive service assistant. 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 Pt is aware this RN CM will call and confirm if pt needs to be homebound or not. Pt will need SN and ST. Provided pt a verbal list of options for infusion provider for feedings, pt chose [facility]. TC mary grace Gibbons at [facility], referral made, will await decision to accept.
[2024-02-09] MEDS: 0.9% Saline Lock 10 ML Syringe IV (12:46)
[2024-02-09] MEDS: LORazepam 2 MG/ML Syringe 0.5 MG IV (12:46)
--- NOTE | 2024-02-09 13:24 | RAD_ITS ---
STUDY: X-RAY - ABDOMEN/PELVIS REASON FOR EXAM: Female, 48 years old. Dobbhoff placement for enteral feeding TECHNIQUE: Single AP view of the abdomen / pelvis. COMPARISON: Comparison is made with prior study dated February 08, 2024. FINDINGS: The tip of the Dobbhoff tube is in the second portion of the duodenum. There is a moderate amount of colonic fecal material. The visualized liver, spleen and kidneys are grossly normal in size and morphology. Vascular stent is seen in the right pelvis. There are degenerative changes of the visualized lumbar spine. RAD/Abdomen Single View (Portable) IMPRESSION: The tip of the feeding tube is in the second portion of the duodenum. Electronically Signed: Jose Mejía MD at 15:18 EST ,
--- NOTE | 2024-02-09 13:26 | NURSING ---
GORDYOFF ADVANCED AT BEDSIDE BY DR WICK. PT TOLERATED WELL. KUB ORDERED
[2024-02-09] MEDS: Jevity 1.5 1,000 ML 10 ML GT (16:04)
[2024-02-09 16:20] VITALS: BP 103/63; PULSE 68; RESP 14; TEMP 37; O2SAT 98
--- NOTE | 2024-02-09 16:28 | NURSING ---
JONATHON REVIEWED BY SAMANTHA MACIAS TO USE. CONNECTOR OBTAINED FROM ICU, TF WOULD NOT CONNECT TO DOOFF CONNECTOR. JEVITY INFUSING AT 10MLS/HR
[2024-02-09 23:18] VITALS: BP 130/99; PULSE 96; RESP 16; TEMP 36.6; O2SAT 99
[2024-02-10 05:37] LABS: Absolute Lymphocyte Count 1.73 X10^3/uL (0.83-4.51); Absolute Neutrophil Count 9.3 X10^3/uL (2.0-7.7); Basophil# 0.02 X10^3/uL; Basophil% 0.2 % (0-1); Eosinophil# 0.05 X10^3/uL; Eosinophils% 0.4 % (0-5); Hematocrit 36.8 % (37-47); Hemoglobin 11.7 g/dL (12.0-15.0); Lymphocyte # 1.73 X10^3/ul (0.83-4.51); Lymphocyte % 14.8 % (19-41); Mean Corp Hgb Conc 31.8 g/dL (32-36); Mean Corpuscular Hgb 27.3 pg (27.0-32.0); Mean Corpuscular Volume 85.8 fL (81-99); Mean Platelet Vol. 10.1 fl (6.2-12.0); Monocyte# 0.56 X10^3/uL; Monocyte% 4.8 % (0-10); NRBC Flagged by Analyzer 0 % (0-5); Neutrophil # 9.29 X10^3/uL (2.7-7.7); Neutrophil % 79.2 % (47-70); Platelet Count 283 K/mm3 (150-450); RBC Distribution Width CV 14.1 % (11.6-14.6); RBC Distribution Width SD 43.7 fl (35.1-43.9); Red Blood Count 4.29 M/mm3 (4.2-5.4); White Blood Count 11.7 K/mm3 (4.4-11.0)
[2024-02-10 06:00] VITALS: BMI 43.0
[2024-02-10 06:17] LABS: Anion Gap 6 (5-15); BUN 22 mg/dL (7-18); BUN/Creat Ratio 36.8 RATIO (10-20); Calcium,Total 9.9 mg/dL (8.5-10.1); Chloride 109 mmol/L (98-107); EST Glomerular Filtration Rate 114 mL/min (>60); Est Glom Filt Rate - Afr Amer 139 mL/min (>60); Estimated Creatinine Clearance 149.44 ml/min; Glucose 95 mg/dL (74-106); Potassium 3.3 mmol/L (3.5-5.1); Sodium Level 141 mmol/L (136-145)
[2024-02-10 06:23] VITALS: BP 126/83; PULSE 87; RESP 16; TEMP 36.9; O2SAT 100
[2024-02-10 07:44] LABS: Phosphorus 2.7 mg/dL (2.5-4.9)
--- NOTE | 2024-02-10 09:05 | DCINST_ITS ---
Discharge Instructions Diet Discharge Diet: - (Tube feeds) DC O2, CPAP, BIPAP needs PSN CPAP & BiPAP: BiPAP & CPAP Settings per PSN Fraction of Inspired Oxygen ( 21 02/08/24 16:15 FIO2) Additional Home O2 Discharge instructions: No Dressing / Incision Discharge Activity: Return to Normal Activity Dressing / Incision Call your doctor if you observe: Fever of 101 or Higher, Shortness of breath, Dizziness, Fainting spells, Swelling in the ankles, Chest pain and Increased palpitations (irregular heartbeat) Follow Up Care Test Results: Test results from this visit will be discussed in further detail at your follow- up appointment, if applicable. Discharge Plan Admission Admit Date/Time: 01/31/24 18:43 Attending Provider: Omar Betancourt Primary Care Provider: Andreas Calvert Consulting Providers: Mary Kern; Jez Cuba; Brian Zuniga; Abdias Gallagher Discharge Orders/Prescriptions Prescriptions: New IV with Additives Jevity 1.5 1000 ML 50 mls/hr GT Ordered By: Omar Betancourt MD Last Taken: 02/09/24 16:04 10 mls/hr Continued aspirin 81 mg tablet,delayed release (DR/EC) 81 mg PO DAILY pantoprazole 20 mg tablet,delayed release (DR/EC) 20 mg PO QDAY Qty: 30 2RF clopidogrel [Plavix] 75 mg tablet 75 mg PO DAILY Patient Comments: stop 3 days prior to procedure cyanocobalamin (vitamin B-12) 1,000 mcg/mL solution 1,000 mcg subcut QMONTH Rx Instructions: INJECT 1000 MCG (1ML) INTRAMUSCULARLY ONCE A MONTH bupropion HCl 300 mg tablet extended release 24 hr 300 mg PO DAILY (DME) Easy Touch SheathLock Syrg-Ndl 3 mL 25 gauge x 1 syringe See Rx Instructions .Route Qty: 100 1RF Rx Instructions: As directed for B-12 injections Referrals / Follow Up: Bereket Fields MD [Med Staff - Active Staff] - Within 2 Weeks (Per request from GI for eval of ulcerations and swelling of larynx and pharynx) Brian Zuniga DO [Med Staff - Active Staff] - Within 2 Weeks Andreas Calvert, APPLICATIONS ADMINISTRATOR-C [Primary Care Provider] - Within 1 Week Disposition Disposition (needs filled in before D/C Order can be placed): Home, Self Care
--- NOTE | 2024-02-10 10:00 | CASEMGMT ---
Addendum entered by Josy Unger 02/10/24 12:16: 1059-Discussed with hospitalist as well as game developer, pt to be increased to 40ml/hr prior to dc. 12p- Made aware by Francis at [facility] that pt did well with teaching. States the pump will be sent to pt home this evening. Pt to dc with a bottle of feedings, nurse aware. RN CM into pt room, pt confirmed that she feels comfortable with feedings. Pt is able to take some nutrition orally. Pt aware that supplies will be delivered this evening. Pt and nurse determining best dc time for pt. Pt is aware of ST eval set up. Pt denies any further homegoing needs. DC instructions sent to [facility] via [facility] at this time. Addendum entered by Josy Unger 02/10/24 11:03: ST order faxed to [facility] at this time. Addendum entered by Josy Unger 02/10/24 10:59: Uploaded TF order to [facility] and notified [facility] that pt attachment is cone shaped. TC to [facility], ST eval scheduled for Thursday at 12pm. Placed on dc instructions. Original Note: RN CM received benefits that cost of feedings will be zero once deductible and OOP is met. Nurse can come from [facility] at 11am today for teaching to pt. RN CM into pt room, ST present. Pt aware of benefits of medication and nurse will be present. Pt prefers RN CM to set up appt for ST at [facility] upon dc. Pt prefers latest appt possible. Spoke with game developer who will come to floor to verify order for TF.
--- NOTE | 2024-02-10 10:06 | CASEMGMT ---
Discharge Planning Updates sent via [facility] to [facility]. Esperanza Vieira DC Planning Asst.
[2024-02-10 11:07] VITALS: BP 133/100; PULSE 105; RESP 16; TEMP 36.6; O2SAT 100
[2024-02-10] MEDS: Enoxaparin 40 MG/0.4 ML Syringe SC (11:26)
[2024-02-10] MEDS: NYSTATIN 500,000 UNIT/5 ML UDC 500000 UNIT PO (11:30)
--- NOTE | 2024-02-10 12:04 | PCM.DC.SUM ---
Providers Date of Admission: 01/31/24 Primary Care Physician: JOSE Pickett Consultations 01/31/24 21:58 Consult: Sales Enablement Consultant / Pulmonary Medicine Routine Consulting Provider: Intensivists/Pulmonary Med Reason for Consult: Anaphylaxis, respiratory failure EMERGENT Consult: No Notified: Yes Date Notified: 01/31/24 Time Notified: 18:45 Method of Notification: Text 02/07/24 13:55 Consult: Gastroenterology Routine Consulting Provider: NadiaBrian Reason for Consult: endoscopic feeding tube placement EMERGENT Consult: No MD Notified: Yes Date Notified: 02/07/24 Time Notified: 15:18 Method of Notification: per Dr. Gallagher Reason For Visit: ANAPHYLAXIS, ACUTE HYPOXIC RESPIRATORY FAILURE Diagnosis Discharge Diagnosis (1) Anaphylactic reaction: Status: Acute Code(s): T78.2XXA - Anaphylactic shock, unspecified, initial encounter (2) Acute airway obstruction: Status: Acute Code(s): J98.8 - Other specified respiratory disorders (3) Dysphagia: Status: Acute Code(s): R13.10 - Dysphagia, unspecified Medications at Discharge Home Medications syringe with needle, safety 3 mL 25 gauge x 1 (Easy Touch SheathLock Syringe with Needle) #100 ea 03/18/23 aspirin 81 mg tablet,delayed release 81 mg PO DAILY stent 05/20/23 clopidogrel 75 mg tablet (Plavix) 75 mg PO DAILY 12/02/23 cyanocobalamin (vitamin B-12) 1,000 mcg/mL injection solution 1,000 mcg subcut QMONTH gastric sleeve 12/02/23 pantoprazole 20 mg tablet,delayed release 20 mg PO QDAY #30 tabs 12/16/23 bupropion HCl 300 mg 24 hr tablet, extended release 300 mg PO DAILY PTSD 02/04/24 IV with Additives 50 mls/hr GT 02/10/24 Hospital Course Operations None Procedures EGD and Intubation Summary of Care Provided Minutes Spent on Discharge: 37 Hospital Course: Per HPI: The patient is a 48 y/o F w/ PMHx: Hx Sleeve gastrectomy 2018 with occasional dysphagia since, Morbid obesity, HTN, HLD, Seizure disorder, CHRISTIANA on CPAP, Anxiety and Depression, Chronic migraines, Chronic anemia, Hx significant varicose veins bilaterally with pain associated with 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 Thompson who presents to the [facility] ED on 01/31/24 with history of significant facial swelling, tongue and throat swelling, pruritus that started approximately 5 minutes prior to ED arrival following ingestion of food at [employer] with no history of food allergies previous to this. Workup in the ED included initial evaluation T97.3 Temporally, heart rate 113, BP 139/112, respiratory rate 24, 100% on room air--> heart rate 99, BP 166/96, respiratory rate 20, 99% ventilated with 50% FiO2, CBC with WBC 7.4, hemoglobin 12.8, MCV 84.6, platelet 336 without marked shift, CMP with chloride 108, glucose 121, alk phos 139 otherwise not marked appearing, total creatinine kinase 128, chest x-ray ET tube high approximately 6.4 cm above the lindsey, pulm opacities left lung possibly pneumonia or atelectasis. Given severity of presentation and worsening airway compromise stat airway team was initiated per ED physician and anesthesia eventually placed an i-gel supraglottic airway as well as an ET tube inside of the i-gel via fiberoptic. In the ED patient was administered 1 L normal saline, diphenhydramine 50 mg IV x 2, EpiPen 0.3 mg IM x 2, famotidine 20 mg IV x 1, Solu-Medrol 125 mg IV x 1 and eventually administered succinylcholine 100 mg IV x 1, etomidate 20 mg IV x 2 and started on a propofol drip. Patient following securing her airway was also placed on an epinephrine drip. Per report he notes that she also had similar reaction but less severe after [employer] and took zyrtec with improvement. Soy, green/red/yellow pepper, lo mein, soy sauce, beef was in her dish per [employer]. They do not use peanut oil. Unclear if separate pans are used on not. Hospital Course: 1. Acute anaphylactic reaction; acute hypoxic respiratory failure, resolved ? Sales Enablement Consultant followed. Occurred following food ingestion suspected secondary to seafood allergy versus peanut allergy. Required emergent intubation on admission. Improved with IV Solu-Medrol, Benadryl, famotidine and epinephrine drip for short period of time. Successfully extubated to nasal cannula on 02/03 and transferred to MedSur unit. Now stable on room air. No need for further treatment for allergic reaction. Allergy panel sent, result pending. 02/08/2024: Allergy testing is positive for sesame seeds, she did eat at [employer] which may have sesame oil though the positive level was equivocal/low at 0.18. Planning for EGD today 02/10/2024: I discussed with her the plan for discharge today she expressed understanding the risks and benefits of going home and would like to go home today. Her Dobbhoff was advanced and she was tolerating tube feeds at 20, will increase this to 40 today and then on discharge she can likely go to 50 cc/h. Will have her follow-up with ENT at the request of GI as an outpatient to monitor the laryngeal and pharyngeal ulcerations and swelling. She is capable of having thin liquids per speech, and her speech recommends outpatient therapy. 2. Dysphagia secondary to ongoing tongue and palate swelling with concern for superimposed infection ? Speech therapy following. Patient with severe oropharyngeal dysphagia secondary to ongoing palate swelling, recommendation for strict n.p.o. status as of 02/05. Have concern for possible superimposed infection given foul-smelling saliva and excessive phlegm production. Sputum culture on admit was unremarkable, repeat sputum culture sent on 02/05. Will empirically treat with IV Unasyn for now. Patient has now been without nutrition since 01/30. Discussed with Dr. Zuniga and we will plan for feeding tube placement under endoscopic guidance on Wednesday 02/07, GI consult placed. He notably may be able to have some visualization of the palate with placement. If he does not have adequate visualization, will need to discuss with speech therapy on need for possible FEES versus ENT evaluation. Continue strict n.p.o. status. 02/08/2024: Still on Unasyn, she was also placed on inhaled budesonide initially on admission. Possible continued swelling and pain with swallowing due to thrush. Will start p.o. nystatin 02/09/2024: Dobbhoff tube is in the gastric fundus, will need to be advanced. Sputum cultures are negative and she has had 3 days of Unasyn, will discontinue Chronic medical conditions: ? Class III obesity: BMI 41 on admit. Encouraged lifestyle modifications. Complicates hospital course, care and prognosis. ? 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 Thompson. Continue home aspirin and Plavix. ? GERD: Continue home PPI. ? Mood disorder: Continue home bupropion. ? Vitamin B12 deficiency: Continue monthly injections on discharge. Physical Exam Narrative General: Alert, Oriented x3, Cooperative, No apparent distress HEENT: Atraumatic, PERRLA, EOMI, Normocephalic, feeding tube in right nostril Oral: Moist Mucosa Neck: Supple, No JVD Lungs: Diminished, Normal air movement, No rhonchi, No wheeze, No rales Cardiovascular: Regular rate, Regular Rhythm, Normal S1, Normal S2, No murmurs Abdomen: Soft, Non Tender, Non-Distended, No Hepato-splenomegaly Extremities: No edema, Capillary Refill Less than 3 Seconds Skin: No rashes, No breakdown Musculoskeletal: No Tenderness to Palpation of Joints or Extremities Neurological: No focal neurological deficits, Motor Exam 5/5 strength throughout, Sensory exam intact to light touch and pain Psych/Mental Status: Normal Affect, Appropriate Medical Records Data Medical Nutrition Assessment Dietitian: Malnutrition Criteria Met Start: 02/08/24 12:25 Freq: Status: Active Protocol: Document 02/09/24 13:23 RMA (Rec: 02/09/24 13:23 RMA [id number]) Nutrition Malnutrition Evidence of Malnutrition Exists Yes Malnutrition (severe): Acute Illness/Injury Evidenced By Suboptimal Energy Intake ( Severe),Weight Loss (Severe) Intake Problem Inadequate Oral Intake Etiology related to difficulty swallowing Signs/Symptoms as evidenced by NPO and need for enteral nutrition support Status Active Problem Clinical Problem Acute Disease or Injury Related Malnutrition Etiology Severe protein-calorie malnutrition in the context of acute condition related to difficulty chewing/swallowing Signs/Symptoms as evidenced by NPO, >5% unintentional wt loss in less than 2 weeks, PO meeting less than 50% estimated nutrition needs Status Active Problem Recommendation Dietitian Recommendations/Changes When able to start enteral nutrition support, recommend TF with Jevity 1.5 to goal rate 50 ml/hr with 100 ml water flush every 4 hours to provide ~1800 kcal, 76 gm pro and 1812 ml free water/day. Start TF at 10 ml/hr and increase by 10mL/hr Q 8-12 hours as tolerated until goal rate of 50mL/hr achieved. Monitor closely for signs/ symptoms of refeeding syndrome . Recommend advanced PO diet as tolerated to Cardiac / Gluten- Free diet per [employer] consistency/ texture recommendations. Weight / BMI Weight Weight: 258 lb 9.636 oz Body Mass Index (BMI) 43.0 ABG / Lab / Microbiology Data 02/10/24 04:32 02/10/24 04:32 Laboratory: Laboratory Results - last 24 hr 02/10/24 04:32: WBC 11.7 H, RBC 4.29, Hgb 11.7 L, Hct 36.8 L, MCV 85.8, MCH 27.3, MCHC 31.8 L D, RDW Std Deviation 43.7, RDW Coeff of Aretha 14.1, Plt Count 283, MPV 10.1, Immature Gran % (Auto) 0.600, Neut % (Auto) 79.2 H, Lymph % (Auto) 14.8 L, [place] % (Auto) 4.8, Eos % (Auto) 0.4, Baso % (Auto) 0.2, Absolute Neuts (auto) 9.3 H, Absolute Lymphs (auto) 1.73, Nucleated RBC % 0, Sodium 141, Potassium 3.3 L, Chloride 109 H, Carbon Dioxide 26.0, Anion Gap 6, BUN 22 H, Creatinine 0.60, Estim Creat Clear Calc 149.44, Est GFR (MDRD) Af Amer 139, Est GFR (MDRD) Non-Af 114, BUN/Creatinine Ratio 36.8 H, Glucose 95, Calcium 9.9, Phosphorus 2.7, Magnesium 2.0 Microbiology: Microbiology 02/06/24 13:05 Sputum, Expectorated/Coughed Gram Stain - Final 02/06/24 13:05 Sputum, Expectorated/Coughed Respiratory Culture - Final 01/31/24 22:10 Sputum, Induced/Lukens Gram Stain - Final 01/31/24 22:10 Sputum, Induced/Lukens Respiratory Culture - Final Mixed normal respiratory manolo. No Streptococcus pneumoniae, beta-hemolytic Streptococcus or Staphylococcus aureus isolated. Radiography Diagnostic Testing: Radiology Impression KUB X-Ray 02/09/24 13:24 IMPRESSION: The tip of the feeding tube is in the second portion of the duodenum. Electronically Signed: Jose Mejía MD at 15:18 EST , D/C Instructions Discharge Diet: - (Tube feeds) Call your doctor if you observe: Fever of 101 or Higher, Shortness of breath, Dizziness, Fainting spells, Swelling in the ankles, Chest pain and Increased palpitations (irregular heartbeat) DC O2, CPAP, BIPAP Needs PSN CPAP & BiPAP: BiPAP & CPAP Settings per PSN Fraction of Inspired Oxygen ( 21 02/08/24 16:15 FIO2) Additional Home O2 Discharge instructions: No DC home with Oxygen: No Meaningful Use Info Meaningful Use Meaningful Use Diagnoses (Choose all that apply): None applicable Ischemic Stroke Statin Dosing Therapy Reference: STATIN DOSE THERAPY REFERENCE: * Patients > 75 years receive moderate or high dose statin therapy. * Patients 75 years or YOUNGER should receive HIGH intensity statin dose unless contraindicated. You will be required to document reason for non-treatment if statin daily dose does not meet guidelines. HIGH DOSE STATIN THERAPY DAILY Atorvastatin > than or = to 40 mg Rosuvastatin > than or = to 20 mg Amlodipine + Atorvastatin > than or = to 2.5/40 mg Ezetimibe + Simvastatin 10/80 mg Simvastatin 80mg Discharge Plan Admission Admit Date/Time: 01/31/24 18:43 Attending Provider: Omar Betancourt Primary Care Provider: Andreas Calvert [facility] Consulting Providers: Mary Kern; Jez Cuba; Nadia,Brian; Abdias Gallagher Discharge Orders/Prescriptions Prescriptions: New IV with Additives Jevity 1.5 1000 ML 50 mls/hr GT Ordered By: Omar Betancourt MD Last Taken: 02/09/24 16:04 10 mls/hr Continued aspirin 81 mg tablet,delayed release (DR/EC) 81 mg PO DAILY pantoprazole 20 mg tablet,delayed release (DR/EC) 20 mg PO QDAY Qty: 30 2RF clopidogrel [Plavix] 75 mg tablet 75 mg PO DAILY Patient Comments: stop 3 days prior to procedure cyanocobalamin (vitamin B-12) 1,000 mcg/mL solution 1,000 mcg subcut QMONTH Rx Instructions: INJECT 1000 MCG (1ML) INTRAMUSCULARLY ONCE A MONTH bupropion HCl 300 mg tablet extended release 24 hr 300 mg PO DAILY (DME) Easy Touch SheathLock Syrg-Ndl 3 mL 25 gauge x 1 syringe See Rx Instructions .Route Qty: 100 1RF Rx Instructions: As directed for B-12 injections Referrals / Follow Up: Bereket Fields MD [Med Staff - Active Staff] - Within 2 Weeks (Per request from GI for eval of ulcerations and swelling of larynx and pharynx) Brian Zuniga DO [Med Staff - Active Staff] - Within 2 Weeks Andreas Calvert, EVENTS MANAGER-C [Primary Care Provider] - Within 1 Week Disposition Disposition (needs filled in before D/C Order can be placed): Home, Self Care Charges/Coding Visit Charges Inpatient E&M: 34207 Disch Hosp >30min
--- NOTE | 2024-02-10 13:43 | PHA.DC.MR.R ---
Pharmacy [place] Med Reconciliation Pharmacy Service has performed discharge medication reconciliation for this patient. The patient's discharge medication list was reviewed for discrepancies and discrepancies were resolved. Medications at Discharge Home Medications syringe with needle, safety 3 mL 25 gauge x 1 (Easy Touch SheathLock Syringe with Needle) #100 ea 03/18/23 aspirin 81 mg tablet,delayed release 81 mg PO DAILY stent 05/20/23 clopidogrel 75 mg tablet (Plavix) 75 mg PO DAILY 12/02/23 cyanocobalamin (vitamin B-12) 1,000 mcg/mL injection solution 1,000 mcg subcut QMONTH gastric sleeve 12/02/23 pantoprazole 20 mg tablet,delayed release 20 mg PO QDAY #30 tabs 12/16/23 bupropion HCl 300 mg 24 hr tablet, extended release 300 mg PO DAILY PTSD 02/04/24 IV with Additives 50 mls/hr GT 02/10/24
--- NOTE | 2024-02-10 13:54 | SP.FEES_ITS ---
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 Thompson, Lung nodules, Preventative health care, Colon cancer screening, UTI, Chronic fatigue, Family history of early CAD, Generalized anxiety disorder, HLD, HTN, Arthritis, Anemia, Migraine, Headache, Seizures, Non-smoker, CPAP dependence, Leg cramps, History of pain when walking, History of edema, Abnormal uterine bleeding, Tiredness, Weight loss, Back pain, Neck pain, Varicose veins of both lower extremities, Hair loss disorder, Chronic back pain, Obesity, Vitamin B12 deficiency. The patient presented [facility] ED on 01/31/24 with history of significant facial swelling, tongue and throat swelling, pruritus that started ~5 minutes prior to ED arrival following ingestion of food at [employer]. Per pt and family, hx of Celiacs, as well as allergy to peanuts, mangoes, and potentially shellfish. Per report, he notes that she also had similar reaction, but less severe after [employer] and took zyrtec with improvement. Soy, green/red/yellow pep per, lo mein, soy sauce, beef was in her dish per [employer]. They do not use peanut oil. Unclear if separate pans are used on not. In the ED, given severity of presentation and worsening airway compromise stat airway team was initiated, eventually placed an i-gel supraglottic airway as well as an ET tube inside of the i-gel via fiberoptic. After securing her airway, the patient was also placed on an epinephrine drip. Pt was admitted to ICU. Pt was extubated in the AM 02/03/[address] consult prior to diet advancement. Pt was recommended NPO 02/03/2024 due to poor secretion management. 02/04/2024 she was cleared for ice chips; however, odynophagia onset. 02/08/24 pt underwent EGD for placement of NG tube. 02/08/2024 Impression: Laryngeal edema?Ulceration was found diffusely, throughout the larynx?Normal esophagus?Feeding tube placement was successfully performed.? Pt was recommended for FEES today to assess swallow function and aspiration risk to determine if the patient is safe for diet advancement. KNOWN FOOD ALLERGIES: Gluten (Celiac's), Peanut, Mangoes, Shellfish?? Current Diet: Alternative Means of Nutrition/Hydration: NG tube Comment:: NPO w/ sips and chips by tsp after oral care Respiratory Status Observation:: Room Air Vocal Quality: Observations:: Hoarse Cognition: Observations:: WNL Position During FEES: Position During FEES:: Upright Location: In Bed Fiberoptic Endoscope: Size: 3.4 mm Nare Used:: Left Anatomical Findings: Anatomical Findings:: Tongue swelling improved, but bruising on tongue. Scarring on posterior pharyngeal wall (hx of tonsillectomy). NG tube present and running along the R side of the patient's pharynx. Pharynx and larynx w/ moderate edema. L pyriform sinus unable to be viewed due to edema. R pyriform sinus i ntermittently in view. R arytenoid more edematous than L. Ventricular folds edematous. Majority of tissue in pharynx pink/reddish w/ bright red epiglottis and R arytenoid. Raymond-colored, slightly raised tissue on lateral glosso- epiglottic folds and posterior pharyngeal wall, likely healing ulcerated tissue from recent intubation/extubation for anaphylaxis. Thin, clear secretions mostly on the lateral glosso-epiglottic folds. Incomplete vocal fold adduction (posterior 1/3 of the folds) w/ phonation tasks. R vocal fold paresis possibly due to edematous R arytenoid impacting ROM. Minimal pharyngeal contraction observed during pitch glides. Penetration-Aspiration Scale Penetration-Aspiration Scale Thin Liquids by Teaspoon Food/Drink Provided:: Thin water w/ green food coloring Swallow Onset Location:: Vallecula PAS Score: PAS Score *7 Visual Analysis of Swallowing Efficiency and Safety (VASES) after the swallow: Oropharynx, Laryngeal Vestibule, Vocal Folds and Subglottis VASES Comments:: Residues: glosso-epiglottic folds 10%, vallecula 30%, true vocal folds <5%, subglottis <5% Strategies Trialed:: Effortful = somewhat effective (decreased residue, but still PAS = 7). Chin tuck = effective (PAS = 3) Mildly Thick Liquids by Teaspoon Food/Drink Provided:: mildly thick water w/ green food coloring Swallow Onset Location:: Val[place]cula PAS Score: PAS Score *8 Visual Analysis of Swallowing Efficiency and Safety (VASES) after the swallow: Oropharynx, Hypopharynx, Vocal Folds and Subglottis Comments:: glosso-epiglottic folds 10%, posterior pharyngeal wall = 15%, arytenoids and post cricoid region = 20%, vallecula 10%, true vocal folds <5%, subglottis <5% Puree Textures Food/Drink Provided:: Applesauce Swallow Onset Location:: Val[place]cula PAS Score: PAS Score *3 Visual Analysis of Swallowing Efficiency and Safety (VASES) after the swallow: Oropharynx and Epiglottis Comments:: Residues: 60% vallecula, 10% posterior pharyngeal wall, 5% epiglottis, 10% pyriform sinuses bilaterally Additional Comments:: Pt coughed up ~50% of bolus and spit out. Diagnosis/Impressions Diagnosis: Moderate-severe oropharyngeal dysphagia R13.12 Recommendations Diet: Thin Liquids Comments: Sips by TSP Chin tuck and double swallow EACH SIP Slow rate Intermittent [id number]-md-swallow Sitting upright for oral intake medications via NG tube NG tube present to meet nutrition/hydration needs Recommend Repeat Instrumental Swallow Assessment: Yes Comments: Repeat MBSS planned as OP 02/18/2024 w/ follow-up OP ST recommended. Need for Skilled Speech Therapy Services: Yes Comments: Recommendation for repeat instrumental assessment in 1 week to allow time for healing and to consider pt for diet advancement w/ follow-up OP ST recommended. Pt demonstrates good understanding of recommended diet textures and aspiration precautions at this time. Education Completed: 1. Described result of evaluation. and 2. Pt understands evaluation & agrees with goals and treatment plan.
== END 2024-02-10 14:41 | disposition home or self-care (01) | DRG 915 ==
LOC: ED 18:47 → ICU 18:57 → MS3 02-04 14:55
PROVIDERS: Anesthesiology; Hospitalist; Internal Medicine; Internal Medicine Gastroenterology; Admitting Provider Family Medicine; Emergency Provider Emergency Medicine; PCP Nurse Practitioner Family; Visit Provider Family Medicine
PROC: 0DJ08ZZ Inspection of Upper Intestinal Tract, Via Natural or Artificial Opening Endoscopic (ICD-10-PCS; CPT 43235; principal; 2024-02-08 16:25)
DX: T78.00XA Anaphylactic reaction due to unspecified food, initial encounter (principal); J96.01 Acute respiratory failure with hypoxia; E46 Unspecified protein-calorie malnutrition; B37.0 Candidal stomatitis; E87.20 Acidosis, unspecified; Z68.41 Body mass index [BMI] 40.0-44.9, adult; J38.4 Edema of larynx; I10 Essential (primary) hypertension; F32.A Depression, unspecified; E53.8 Deficiency of other specified B group vitamins; E78.5 Hyperlipidemia, unspecified; G47.33 Obstructive sleep apnea (adult) (pediatric); K21.9 Gastro-esophageal reflux disease without esophagitis; J98.8 Other specified respiratory disorders; D72.829 Elevated white blood cell count, unspecified; Z79.02 Long term (current) use of antithrombotics/antiplatelets; Z79.82 Long term (current) use of aspirin; F41.1 Generalized anxiety disorder; Z90.710 Acquired absence of both cervix and uterus; E66.813 Obesity, class 3; J38.7 Other diseases of larynx; Z90.3 Acquired absence of stomach [part of]; Z99.89 Dependence on other enabling machines and devices; Z79.899 Other long term (current) drug therapy; Z90.49 Acquired absence of other specified parts of digestive tract; Z98.41 Cataract extraction status, right eye; Z98.42 Cataract extraction status, left eye; Z98.51 Tubal ligation status; Y92.511 Restaurant or cafe as the place of occurrence of the external cause; T78.3XXA Angioneurotic edema, initial encounter; R13.19 Other dysphagia; Z86.718 Personal history of other venous thrombosis and embolism
CPT/HCPCS: 31500; 31720; 36415; 36600; 71045; 74018; 80048; 80053; 80076; 81025; 82550; 82803; 82962; 83605; 83735; 84100; 84478; 85025; 85610; 86003; 87070; 87205; 92526; 92610; 92612; 93005; 94002; 94003; 94668; 94762; 97802; 97803; 99252; 99285; J7030; J7040; J7050; A4216; G0463; J0295; J2405; J3490; J7799

== ENCOUNTER → 2024-02-16 | Outpatient (CLI) | payer OTHER, SELFPAY ==
[2024-02-16 12:38] LABS: Absolute Lymphocyte Count 1.58 X10^3/uL (0.83-4.51); Absolute Neutrophil Count 4.5 X10^3/uL (2.0-7.7); Basophil# 0.05 X10^3/uL; Basophil% 0.7 % (0-1); Eosinophil# 0.14 X10^3/uL; Eosinophils% 2.1 % (0-5); Hematocrit 36.7 % (37-47); Hemoglobin 11.9 g/dL (12.0-15.0); Lymphocyte # 1.58 X10^3/ul (0.83-4.51); Lymphocyte % 23.2 % (19-41); Mean Corp Hgb Conc 32.4 g/dL (32-36); Mean Corpuscular Hgb 27.6 pg (27.0-32.0); Mean Corpuscular Volume 85.2 fL (81-99); Mean Platelet Vol. 10.5 fl (6.2-12.0); Monocyte% 7.3 % (0-10); NRBC Flagged by Analyzer 0 % (0-5); Neutrophil # 4.51 X10^3/uL (2.7-7.7); Neutrophil % 66.3 % (47-70); Platelet Count 351 K/mm3 (150-450); RBC Distribution Width CV 14.1 % (11.6-14.6); RBC Distribution Width SD 43.8 fl (35.1-43.9); Red Blood Count 4.31 M/mm3 (4.2-5.4); White Blood Count 6.8 K/mm3 (4.4-11.0)
== END | disposition home or self-care (01) ==
LOC: VSLAB 10:13
PROVIDERS: PCP Nurse Practitioner Family
DX: D72.829 Elevated white blood cell count, unspecified (principal)
CPT/HCPCS: 36415; 85025

== ENCOUNTER → 2024-02-18 | Outpatient (CLI) | payer OTHER, SELFPAY ==
--- NOTE | 2024-02-18 14:02 | SP.MBSS_ITS ---
Modified Barium Swallow Patient Information Study Date: 02/18/24 Study Time: 13:00 Direct Billable Minutes: 77 Total Minutes procedure & reportin Diagnosis: Dysphagia R13.10 Referring Physician: Jagdeep Valverde Ranjan Reason for Referral: Re-assess swallow function and aspiration risk to determine recommendations for least restrictive diet textures and strategies to decrease risk for aspiration. 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 Thompson, Lung nodules, Preventative health care, Colon cancer screening, UTI, Chronic fatigue, Family history of early CAD, Generalized anxiety disorder, HLD, HTN, Arthritis, Anemia, Migraine, Headache, Seizures, Non-smoker, CPAP dependence, Leg cramps, History of pain when walking, History of edema, Abnormal uterine bleeding, Tiredness, Weight loss, Back pain, Neck pain, Varicose veins of both lower extremities, Hair loss disorder, Chronic back pain, Obesity, Vitamin B12 deficiency. The patient presented [facility] ED on 01/31/24 with history of significant facial swelling, tongue and throat swelling, pruritus that started ~5 minutes prior to ED arrival following ingestion of food at [employer]. Per pt and family, hx of Celiacs, as well as allergy to peanuts, mangoes, and potentially shellfish. Per report, he notes that she also had similar reaction, but less severe after [employer]ob[employer] and took zyrtec with improvement. Soy, green/red/yellow pepper , lo mein, soy sauce, beef was in her dish per [employer]. They do not use peanut oil. Unclear if separate pans are used on not. In the ED, given severity of presentation and worsening airway compromise stat airway team was initiated, eventually placed an i-gel supraglottic airway as well as an ET tube inside of the i-gel via fiberoptic. After securing her airway, the patient was also placed on an epinephrine drip. Pt was admitted to ICU. Pt was extubated in the AM 02/03/[address] consult prior to diet advancement. Pt was recommended NPO 02/03/2024 due to poor secretion management. 02/04/2024 she was cleared for ice chips; however, odynophagia onset. 02/08/24 pt underwent EGD for placement of NG tube. 02/08/2024 Impression: Laryngeal edema?Ulceration was found diffusely, throughout the larynx?Normal esophagus?Feeding tube placement was successfully performed.? Pt was recommended for FEES 02/10/2024 to assess swallow function and aspiration risk to determine if the patient is safe for diet advancement. FEES revealed moderate-severe oropharyngeal dysphagia w/ recommendations for thin liquids only, sips by tsp, chin tuck and double swallow each sip, slow rate, intermittent cough and re-swallow, sitting upright for oral intake, medications via NG tube, NG tube present to meet nutrition/hydration needs. She was discharged home w/ this diet and recommended for repeat in [facility] assessment of swallow function in 1 week. Current Diet Ordered: Thin liquids only; NG Dentition: WNL Mental Status: WNL Respiratory Status: Oxygenating on Room Air Penetration-Aspiration Scale Penetration-Aspiration Scale: OBJECTIVE ASSESSMENT OF SWALLOW FUNCTION (QUANTITATIVE ? PER TRIAL): PENETRATION / ASPIRATION SCALE (HERNANDEZ): 1 = does not enter airway 2 = enters airway/above vocal folds/ejected 3 = enters airway/above vocal folds/not ejected 4 = enters airway/contacts vocal folds/ejected 5 = enters airway/contacts vocal folds/not ejected 6 = enters airway/below vocal folds/ejected 7 = enters airway/below vocal folds/not ejected despite effort 8 = enters airway/below vocal folds/no effort VIDEOFLOROSCOPIC SCALE SCORE (HERNANDEZ): Grade I = aspiration of material that has penetrated into the laryngeal vestibule, intact cough reflex Grade II = aspiration < 10 % of the bolus, intact cough reflex Grade III = aspiration of < 10 % of the bolus, reduced cough reflex or aspiration of > 10 % of the bolus, intact cough reflex Grade IV = aspiration of > 10 % of the bolus, reduced cough reflex Penetration-Aspiration Scale Score Thin Liquid via teaspoon Chin tuck: Result: 1= does not enter airway Thin Liquid via teaspoon Trial 2: Result: 1= does not enter airway Thin Liquid via small single sip: cup: Result: 4= enters airway/contacts vocal folds/ejected [place] Thick Liquid via small single sip: cup: Result: 1= does not enter airway Honey Thick Liquid via teaspoon: Result: 1= does not enter airway Pudding via teaspoon: Result: 1= does not enter airway 1/2 Potato Chip coated in barium pudding: Result: 1= does not enter airway Thin Liquid via single sip: straw Effortful swallow: Result: 2= enter airway/above vocal folds/ejected Thin Liquid via sequential sips:straw: Result: 2= enter airway/above vocal folds/ejected Oral Phase Labial Seal: No Labial Escape Tongue Control During Bolus Hold: Posterior escape of less than half of bolus Bolus Preparation/Mastication: Timely and efficient chewing and mashing Bolus Transport/Lingual Motion: Delayed initiation of tongue motion Oral Residue: Trace residue lining oral structures Pharyngeal Phase Initiation of Pharyngeal Swallow: Bolus head at posterior laryngeal surgace of epiglottis Soft Palate Elevation: No bolus between soft palate and pharyngeal wall Laryngeal Elevation: Comp. Superior move thyroid cart w/comp. apprx arytenoid cart-epig pet Anterior Hyoid Excursion: Partial anterior movement Epiglottic Movement: Partial inversion (inconsistent) Laryngeal Vestibule Closure at Height of Swallow: Incomplete; narrow column of air/contrast in laryngeal vestibule (very trace amount of thin barium on VF during the swallow w/ thin by cup) Pharyngeal Stripping Wave: Present - diminished Pharyngoesophageal Segment Opening: Parital distension and partial duration; parital obstruction of flow Tongue Base Retraction: Narrow column of contrast between tongue base & post. pharyngeal wall Pharyngeal Residue: Collection of residue within or on pharyngeal structures Diagnosis/Impression Diagnosis: Mild pharyngeal dysphagia R13.13 Impression: The oral phase appears grossly WNL. The pharyngeal phase is marked by... -Mild pharyngeal residues most notable w/ pudding and cookie due to mildly decreased TB retraction, pharyngeal stripping wave, and UES opening/duration. Liquid wash effectively cleared residues. -Good airway closure during the swallow attributed to good laryngeal elevation. Epiglottic inversion partial on some trials likely due to presence of NG tube in pharynx. -Very trace laryngeal penetration of thin liquids by cup to the vocal folds w/ full ejection. No aspiration observed. Recommendations Diet: Regular Textures (Easy to Chew textures - IDDSI Level 7) and Thin Liquids Comment: Add sauces/gravies to dry textures NG available to supplement nutrition/hydration needs if the patient is unable to meet nutrition/hydration needs by mouth given continued odynophagia (10/09 when not managed by pain medication) Compensatory Strategies: Small Bites, Small Sips (Effortful/hard swallows), Slow Rate, Alternate bites/solids and sips/liquids, Sitting upright and Remain sitting upright for 30 minutes after PO intake Recommend Repeat Modified Barium Swallow: No Need for Skilled Speech Therapy Services: Yes Comment: Due to mild residual pharyngeal deficits, will recommend the patient follow up w/ OP ST for training in oropharyngeal exercise program to promote improved TB retraction, pharyngeal stripping wave, and UES opening/duration. Consider implementation of Lynn, Effortful, and Yawn stretch. Education Completed: 1. Described result of evaluation. Comment: CLIENT SERVICE SUPERVISOR reviewed results and recommendations of MBSS w/ pt. Education well received. Pt is planning to discuss study w/ [facility] SPECIALIST, Jagdeep Valverde. If she is able to resume a full oral diet, she would like NG tube removed as soon as possible. CLIENT SERVICE SUPERVISOR encouraged further discussion of results of MBSS w/ NCQA SPECIALIST. Status Active ST Patient: Active Contact Information [facility] Speech Therapy:: Gisselle Solis M.A. CCC-CLIENT SERVICE SUPERVISOR? Speech-Language Pathologist?? [facility] [address] [place] [address]? [email or web address]?? [phone]
== END | disposition home or self-care (01) ==
LOC: RAD 12:46
PROVIDERS: PCP Nurse Practitioner Family
DX: R13.10 Dysphagia, unspecified (principal)
CPT/HCPCS: 74230; 92611

== ENCOUNTER 2024-02-20 12:33 | Emergency (ER) | payer OTHER, SELFPAY ==
[2024-02-20 12:34] VITALS: BP 163/91; PULSE 122; RESP 18; TEMP 36.6; O2SAT 98; BMI 42.3
--- NOTE | 2024-02-20 12:52 | EDS_ITS ---
<Statement entered by Alex Perales DO - 02/20/24 15:47> Patient was seen and examined with nurse practitioner Rodolfo All components of the history and physical confirmed and agreed. History of present illness and physical exam: Patient is a 48-year-old female with a past medical history of allergic reaction, acute airway obstruction with NG tube placement secondary to feeding difficulty after developing ulcer in her throat who presents to the emergency department with a chief complaint of dislodged feeding tube. She states that she follows with Dr. Zuniga in the outpatient setting. States that after a shower today she noted that she was coughing heavily and noted that the tube was coiled in her mouth. She states that she has noted that at the end of the tube had been continuously getting longer and longer. Patient states that she has been eating and drinking by mouth. Review of systems: Agree with above Physical exam: Agree with above MDM Patient is a 48-year-old female who presents to the emergency department chief complaint of dislodged NG tube. Patient will have a workup performed here including a x-ray to ensure no evidence of perforation. On the differential diagnose includes but not limited to NG tube dislodgment, perforation although once again have very low suspicion for this as the patient is nontoxic in appearance has no pain and is tolerating her secretions well. Patient's x-ray was reviewed by myself and by radiology Which showed no acute evidence of cardiopulmonary processes. Patient's case was discussed with Dr. Zuniga by the nurse practitioner Rodolfo who states that he does not believe that she needs the NG at this point in time as she is tolerating food by mouth. He states that this she will need to follow-up with him in the outpatient setting. Patient was encouraged to return with worsening symptoms or other concerns. She is agreeable this plan as well as significant other at bedside. All question concerns answered she was discharged home in stable condition. Plan: Final impression: NG tube dislodgment Disposition: Patient will be discharged home in stable condition Supervising attending attestation: Alex Perales D.O. [facility] History of Present Illness Chief Complaint: Other, Pain/Inj Narrative Narrative: Patient is a 48-year-old female who is recent history of significant allergic reaction, acute airway obstruction, patient currently sees Dr. Mcdonald and had a feeding tube placed from her nose which was an NG tube. Patient was coughing heavily today and it came up out of her abdomen and into her throat causing her to gag and vomit. Patient denied any other abdominal pain, sickness. Patient is here to have this removed. Per the patient, she does take by mouth fluids and food at this time. [facility] Medical History Lung nodules Preventative health care Colon cancer screening UTI (urinary tract infection) CHRISTIANA (obstructive sleep apnea) Chronic fatigue Lung nodule seen on imaging study Family history of early CAD Generalized anxiety disorder Hyperlipidemia Hypertension Arthritis Anemia Migraine headache Seizures Non-smoker CPAP (continuous positive airway pressure) dependence Sleep apnea Leg cramps History of pain when walking History of edema Abnormal uterine bleeding Tiredness Weight loss Back pain Neck pain Varicose veins of both lower extremities Hair loss disorder Chronic back pain Obesity Vitamin B12 deficiency Home Medications ?Medication ?Instructions ?Recorded ?Last Taken ?Type syringe with needle, safety 3 mL #100 ea 03/18/23 Unknown Rx 25 gauge x 1 (Easy Touch SheathLock Syringe with Needle) aspirin 81 mg tablet,delayed 81 mg PO DAILY stent 05/20/23 01/31/24 08:11 History release 81 mg clopidogrel 75 mg tablet (Plavix) 75 mg PO DAILY 12/02/23 11/30/23 History cyanocobalamin (vitamin B-12) 1,000 mcg subcut QMONTH gastric 12/02/23 01/13/24 History 1,000 mcg/mL injection solution sleeve pantoprazole 20 mg tablet,delayed 20 mg PO QDAY #30 tabs 12/16/23 01/31/24 Rx release bupropion HCl 300 mg 24 hr tablet, 300 mg PO DAILY PTSD 02/04/24 01/31/24 History extended release IV with Additives 50 mls/hr GT 02/10/24 Unknown Rx epinephrine 0.1 mg/0.1 mL 0.1 ml subcut X1 #2 ea 02/10/24 Unknown Rx injection, auto-injector Allergy/AdvReac Type Severity Reaction Status Date / Time peanut Allergy Severe Angioedema Verified 02/20/24 12:37 ibuprofen (From Motrin) AdvReac Intermediate Shortness Verified 02/20/24 12:37 of breath Family History Father Diabetes Heart disease Lung cancer smoker- agent orange Arthritis Cancer Mother High cholesterol Surgical History Hx of hysterectomy Hx of surgical procedure Status post hysterectomy (~10/17/21) Hx laparoscopic cholecystectomy Hx of bilateral cataract extraction History of carpal tunnel surgery of left wrist History of endometrial ablation History of gastric stapling History of History of tonsillectomy History of tubal ligation Social History Smoking Status: Never smoker alcohol intake: never substance use type: does not use caffeine: Yes what type of physical activity do you participate in: none seatbelt use: always do you feel safe at home: Yes additional social history: Jose- [employer] in [place] patient works at [employer] ROS ROS ED ROS Narrative Constitutional: Negative for fever, chills, weight loss, weakness Eyes: Negative for vision loss, vision change, double vision ENT: Negative for any sore throat, ear pain, congestion Cardiovascular: Negative for any chest pain, tightness, palpitations Respiratory: Negative for any cough, sputum production, hemoptysis, dyspnea, dyspnea on exertion, orthopnea Gastrointestinal: Negative for any abdominal pain, diarrhea, constipation, blood in stool, blood in vomit. Positive for nausea and vomiting : Negative for any urinary frequency, dysuria, retention, blood in urine Muscle skeletal: Negative for any neck pain, back pain Neurological: Negative for any headache, syncope, dizziness Skin: Negative for any rashes, itching, abrasions, lacerations Psychiatric: Negative for any depression, anxiety, stress, suicidal ideation, homicidal ideation Hematologic: Negative for any excessive bruising, easy bleeding EXAM Physical Exam Narrative Exam Narrative: Vital signs reviewed. On my initial evaluation, the patient was leaning over in a trash can vomiting. Patient had quite a bit of the tube coiled in her mouth. I immediately able to take it out of her nose. HEET: Head normocephalic atraumatic, TMs clear bilaterally. Posterior pharynx is clear, moist mucous membranes. Nares clear bilaterally. Neck: Supple with no lymphadenopathy or tenderness. No signs of meningismus. Cardiac: Regular rate and rhythm no murmurs gallops or rubs, equal peripheral pulses bilaterally. Respiratory: Lungs clear to auscultation bilaterally. No chest tenderness. Abdomen: Soft, nontender, nondistended. No abdominal bruit or pulsatile masses. No hepatosplenomegaly Extremities: No peripheral edema, no signs of gross trauma or deformity. Active full range of motion of all extremities. Neuro: Cranial nerves II through XII intact, no focal neurological deficits. Skin: Clean dry and intact with no rash, purpura, petechiae, vesicles or pustules. Backs/flank: No CVA tenderness, no midline spinal tenderness, no deformity. Psych: Normal mood and affect. No SI, HI or acute psychosis. Const Vital Signs: 02/20/24 12:34 02/20/24 13:06 Temperature 97.8 F Temperature Source Temporal Pulse Rate 122 H Respiratory Rate 18 Respiratory Pattern Normal Blood Pressure 163/91 H Blood Pressure Mean 115 Pulse Ox 98 Oxygen Delivery Method Room Air Positive well nourished and well developed General Appearance ED: well developed [facility] MDM Radiography Diagnostic Testing: Clinical Impression(s) from Imaging Studies Chest X-Ray 02/20/24 12:55 IMPRESSION: No radiographic evidence of acute cardiopulmonary disease. Electronically Signed: Gerg Hernandez MD at 14:14 EST , Treatment and Re-Evaluation :: Differential diagnosis includes however is not limited to: NG tube malfunction, aspiration pneumonia, GI virus, acute nausea and vomiting Patient appears generally well, vital signs are stable, patient is nontoxic- appearing. On my initial evaluation, the patient was tachycardic however the patient was vomiting as well as had a NG tube mostly cold in her mouth. I was able to discontinue it from her right nare. Once the NG tube was removed, the patient symptoms decreased. Patient will be given a two-view chest x-ray to rule out any aspiration pneumonia as well as oral Zofran. Patient also be observed. I do not believe that this NG/feeding tube needs to be replaced because she is eating food by mouth at this time. She does see Dr. Zuniga. She will need to follow-up with him. All radiologic examinations were read, reviewed by the emergency department attending. From these reads, a plan of care will be put in place. On reevaluation with the patient is doing well, passing p.o. challenge. X-ray two-view interpreted the ER physician was negative. Spoke with Dr. Mcdonald, he is okay with not having the NG/feeding tube in. Patient will follow-up outpatient, she was given strict return precaution. Patient stable for discharge. Discharge Plan Triage Chief Complaint: Other, Pain/Inj ED Midlevel Provider: Rodolfo Torres ED Provider: Alex Perales Dx/Rx/DC Orders Clinical Impression: Complication of feeding tube, History of dysphagia Prescriptions: No Action aspirin 81 mg tablet,delayed release (DR/EC) 81 mg PO DAILY pantoprazole 20 mg tablet,delayed release (DR/EC) 20 mg PO QDAY Qty: 30 2RF clopidogrel [Plavix] 75 mg tablet 75 mg PO DAILY Patient Comments: stop 3 days prior to procedure cyanocobalamin (vitamin B-12) 1,000 mcg/mL solution 1,000 mcg subcut QMONTH Rx Instructions: INJECT 1000 MCG (1ML) INTRAMUSCULARLY ONCE A MONTH bupropion HCl 300 mg tablet extended release 24 hr 300 mg PO DAILY IV with Additives Jevity 1.5 1000 ML 50 mls/hr GT Ordered By: Omar Betancourt MD Last Taken: Unknown epinephrine 0.1 mg/0.1 mL auto-injector 0.1 ml subcut X1 Qty: 2 0RF (DME) Easy Touch SheathLock Syrg-Ndl 3 mL 25 gauge x 1 syringe See Rx Instructions .Route Qty: 100 1RF Rx Instructions: As directed for B-12 injections Primary Care Provider: Andreas Calvert Referrals: Brian Zuniga DO [Med Staff - Active Staff] - Andreas Calvert, CERTIFICATION AND SELECTION SPECIALIST-C [Primary Care Provider] - Activity Restrictions/Additional Instructions: Please follow-up outpatient Print Language: Romansh Disposition Disposition: Home, Self Care
[2024-02-20] MEDS: Ondansetron ODT 4 MG Tablet 8 MG PO (12:53)
--- NOTE | 2024-02-20 12:55 | RAD_ITS ---
INDICATION: cough EXAMINATION/TECHNIQUE: X-RAY - XR Chest 2 Views COMPARISON: Prior study dated: 01/31/2024 FINDINGS: LINES/DEVICES: Endotracheal tube has been removed. LUNGS: No consolidation, edema or effusion. No pneumothorax. MEDIASTINUM AND CARDIOVASCULAR STRUCTURES: Cardiac silhouette not enlarged. Central airways and mediastinal contour are unremarkable. BONES AND SOFT TISSUES: Unremarkable. RAD/Chest PA and Lateral IMPRESSION: No radiographic evidence of acute cardiopulmonary disease. Electronically Signed: Greg Hernandez MD at 14:14 EST ,
[2024-02-20 14:37] VITALS: BP 133/62; PULSE 74; RESP 15; TEMP 36.6; O2SAT 99
== END 2024-02-20 14:52 | disposition home or self-care (01) ==
PROVIDERS: Emergency Provider Emergency Medicine; PCP Nurse Practitioner Family; Visit Provider Emergency Medicine
DX: T85.528A Displacement of other gastrointestinal prosthetic devices, implants and grafts, initial encounter (principal); Z90.710 Acquired absence of both cervix and uterus; I10 Essential (primary) hypertension; E78.5 Hyperlipidemia, unspecified; G47.33 Obstructive sleep apnea (adult) (pediatric); Z99.89 Dependence on other enabling machines and devices; Z79.82 Long term (current) use of aspirin; Z79.899 Other long term (current) drug therapy; F41.1 Generalized anxiety disorder; Z90.49 Acquired absence of other specified parts of digestive tract; Z98.41 Cataract extraction status, right eye; Z98.42 Cataract extraction status, left eye; Z98.51 Tubal ligation status; R11.10 Vomiting, unspecified
CPT/HCPCS: 71046; 99282

== ENCOUNTER 2024-03-17 06:41 | Day surgery (SDC) | payer OTHER, SELFPAY ==
--- NOTE | 2024-03-16 09:25 | PAT.ANE_ITS ---
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 When Was Last Pacemaker Check QUESTION #4 FULL TEXT: You/Your Family Experience fever (hyperthermia) with Anesthesia Last Oral Intake Last Oral intake: Last Oral Intake NPO since Meds taken in AM with sips of water? Meds patient instructed to take am of surgery PONV PONV - sales promotion manager: PONV - sales promotion manager Female Yes 03/16/24 09:05 HX of Motion Sickness No 03/16/24 09:05 HX of N/V After Surgery No 03/16/24 09:05 Non-Smoker Yes 03/16/24 09:05 Duration of Surgery greater No 03/16/24 09:05 than 60 minutes Number of Risk Factors 2 03/16/24 09:05 PONV Score Moderate Risk 03/16/24 09:05 Height & Weight Height & Weight: Anesthesia: Height & Weight Height 5 ft 5 in 02/20/24 12:34 Respiratory Assessment Respiratory Assessment - sales promotion manager: Respiratory Tract Infection Hx - sales promotion manager Hx Respiratory Tract Infection No 03/16/24 09:05 STOP Sleep Apnea STOP Sleep Apnea - sales promotion manager: STOP Sleep Apnea - sales promotion manager Hx Hypertension No 03/16/24 09:05 Hx Sleep Apnea Yes 03/16/24 09:05 CPAP Yes: NON COMPLIANT 03/16/24 09:05 BIPAP No 03/16/24 09:05 Do you snore loudly (louder than talking or can be heard Do you often feel tired/ fatigued/ sleepy during daytime? Has anyone observed you stop breathing during sleep? STOP Results Positive 03/16/24 09:05 QUESTION #5 FULL TEXT : Do you snore loudly (louder than talking or can be heard through closed doors)? 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 Specify any problems Hx of Preganancy in last 3 N/A 03/16/24 09:05 Months Nurse Filling Out Transfusion NBUCHER 03/16/24 09:05 & Questions: Date: 03/16/24 03/16/24 09:05 Time: 09:06 03/16/24 09:05 Patient unable to answer at this time (ie. confused, unrespo /Reproduction History /Reproductive History - sales promotion manager: /Reproductive Hx- sales promotion manager Hx Now No 03/16/24 09:05 Gestational Age (in weeks): EDC: Hx Hx Para Hx Section SAB No 03/16/24 09:05 [facility] Medical History Lung nodules Preventative health care Colon cancer screening UTI (urinary tract infection) CHRISTIANA (obstructive sleep apnea) Chronic fatigue Lung nodule seen on imaging study Family history of early CAD Generalized anxiety disorder Hyperlipidemia Hypertension Arthritis Anemia Migraine headache Seizures Non-smoker CPAP (continuous positive airway pressure) dependence Sleep apnea Leg cramps History of pain when walking History of edema Abnormal uterine bleeding Tiredness Weight loss Back pain Neck pain Varicose veins of both lower extremities Hair loss disorder Chronic back pain Obesity Vitamin B12 deficiency Home Medications ?Medication ?Instructions ?Recorded ?Last Taken ?Type syringe with needle, safety 3 mL #100 ea 03/18/23 Unknown Rx 25 gauge x 1 (Easy Touch SheathLock Syringe with Needle) aspirin 81 mg tablet,delayed 81 mg PO DAILY stent 05/20/23 01/31/24 08:11 History release 81 mg clopidogrel 75 mg tablet (Plavix) 75 mg PO DAILY 12/02/23 11/30/23 History cyanocobalamin (vitamin B-12) 1,000 mcg subcut QMONTH gastric 12/02/23 01/13/24 History 1,000 mcg/mL injection solution sleeve epinephrine 0.1 mg/0.1 mL 0.1 ml subcut X1 #2 ea 02/10/24 Unknown Rx injection, auto-injector ondansetron 4 mg disintegrating 4 mg PO Q8H PRN PRN Nausea #10 tabs 02/20/24 Unknown Rx tablet sucralfate 100 mg/mL oral 10 ml PO BID 30 days #600 mL 03/03/24 Unknown Rx suspension Allergy/AdvReac Type Severity Reaction Status Date / Time peanut Allergy Severe Angioedema Verified 03/16/24 09:02 ibuprofen (From Motrin) AdvReac Intermediate Shortness Verified 03/16/24 09:02 of breath Family History Father Diabetes Heart disease Lung cancer smoker- agent orange Arthritis Cancer Mother High cholesterol Surgical History Hx of hysterectomy Hx of surgical procedure Status post hysterectomy (~10/17/21) Hx laparoscopic cholecystectomy Hx of bilateral cataract extraction History of carpal tunnel surgery of left wrist History of endometrial ablation History of gastric stapling History of History of tonsillectomy History of tubal ligation Social History Smoking Status: Never smoker alcohol intake: never substance use type: does not use caffeine: Yes what type of physical activity do you participate in: none seatbelt use: always do you feel safe at home: Yes additional social history: Sqrrl in [place] patient works at [employer] Audit: Pertinent Findings Pertinent Findings EKG Perinent findings: 01/31/2024 normal sinus rhythm 95 bpm prolonged QT otherwise normal Pulmonary function results/spirometer pertinent findings: 02/20/2024 no evidence of acute cardiopulmonary disease Additional pertinent findings: Potassium 3.3 on 02/10/2024 lab Recommendation Anesthesia Recommendation Anesthesia recommendation: OPTIMIZED for anesthesia
[2024-03-17] VITALS (7 sets, daily range): BP systolic 123–128; BP diastolic 68–87; PULSE 75–98; RESP 16; TEMP 36.1–36.3; O2SAT 94–96; BMI 44.1
--- NOTE | 2024-03-17 | COLBX_PTH ---
PATIENT: FABIENNE FRANKS LOC: EN U#:[id number] AGE/SX: 48/F ROOM: RE03/17/[address]: Dr. Brian Zuniga DO : 1975 BED: DIS: 03/17/2024 SPEC #: [id number] RECD: 03/17/24 12:46 STATUS: CHATO REBre #: [id number] CARLY: 03/17/24 00:[address]: Brian Zuniga DEPT: SURGICAL PATHOLOGY RECD BY: Mani Soriano ENTERED: 03/17/24 12:46 SP TYPE: COLON BX OTHR DR: MD Joy Bright, JERRICA Calvert, INTELLECTUAL PROPERTY COUNSEL-C Tissues: Duodenum, NOS Procedures: Surgery Specimen Level IV HEADER OPERATION: EGD, biopsy PRE-OP DIAGNOSIS: Dysphagia, anaphylaxis, celiac disease TISSUE SUBMITTED: Duodenum biopsy MICROSCOPIC DIAGNOSIS Duodenum, biopsy: A fragment of duodenal mucosa with mild non-specific chronic inflammation. See comment. 03/18/2024 COMMENT Correlation with clinical, endoscopic, laboratory findings and appropriate follow up are necessary. MICROSCOPIC DESCRIPTION Slides are reviewed. GROSS DESCRIPTION Received in fixative is one container labeled with the patient's name and designated Duodenum biopsy. The specimen consists of one irregular fragment of light hdez soft tissue that measures 1.0 x 0.3 x 0.2 cm. The specimen is totally submitted in one cassette. 03/17/2024 TC:3 CPT:59596
--- NOTE | 2024-03-17 07:26 | PCM.PRE.AN2 ---
ASA Classification* ASA Classification ASA Classification: 3 Assessment & Plan Anesthesia* Anesthesia Assessment Anesthesia Assessment: Discussed sedation and/or anesthesia options, risks, benefits, and alternatives with patient/parents/legal guardian/POA. Questions invited. The patient/parents/legal guardian/POA seems to understand and agrees to proceed with anesthesia plan. Reviewed the physical assessment, medical history, allergy history and patient home medications list prior to surgery/procedure/anesthetic and documented any changes. Performed airway and anesthesia risk assessments. Anesthesia Type Anesthesia Type: MAC Anesthesia Focused Assessment* Temperature: 96.9 F Pulse Rate: 83 Blood Pressure: 123/68 Respiratory Rate: 16 Pulse Ox: 96 Airway Assessment Mouth opens: >3 cm Mallampati Score: II Focused Labs Anesthesia Preop lab: CBC WBC 6.8 K/mm3 (4.4-11.0) 02/16/24 10:14 RBC 4.31 M/mm3 (4.2-5.4) 02/16/24 10:14 Hgb 11.9 g/dL (12.0-15.0) L 02/16/24 10:14 Hct 36.7 % (37-47) L 02/16/24 10:14 Plt Count 351 K/mm3 (150-450) 02/16/24 10:14 CHEMISTRY Potassium 3.3 mmol/L (3.5-5.1) L 02/10/24 04:32 Sodium 141 mmol/L (136-145) 02/10/24 04:32 Magnesium 2.0 mg/dL (1.6-2.6) 02/10/24 04:32 Phosphorus 2.7 mg/dL (2.5-4.9) 02/10/24 04:32 BUN 22 mg/dL (7-18) H 02/10/24 04:32 Creatinine 0.60 mg/dL (0.55-1.02) 02/10/24 04:32 Glucose 95 mg/dL (74-106) 02/10/24 04:32 POC Glucose 109 mg/dL (74-106) H 02/02/24 23:10 TSH 1.11 uIU/mL (0.358-3.74) 09/23/23 11:55 COAG PT 14.6 SECONDS (11.7-14.9) 02/08/24 06:25 Urine Test Negative Negative 02/07/24 20:30 Pre-Assessment Diagnosis/Proposed Procedure Planned Operative Procedure(s): EGD Anesthesia History Anesthesia History - 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 When Was Last Pacemaker Check QUESTION #4 FULL TEXT: You/Your Family Experience fever (hyperthermia) with Anesthesia Last Oral Intake Last Oral intake: Last Oral Intake NPO since 23:30 03/17/24 07:02 Meds taken in AM with sips of water? Meds patient instructed to take am of surgery PONV PONV - accounts receivable administrator: PONV - accounts receivable administrator Female Yes 03/16/24 09:05 HX of Motion Sickness No 03/16/24 09:05 HX of N/V After Surgery No 03/16/24 09:05 Non-Smoker Yes 03/16/24 09:05 Duration of Surgery greater No 03/16/24 09:05 than 60 minutes Number of Risk Factors 2 03/16/24 09:05 PONV Score Moderate Risk 03/16/24 09:05 Height & Weight Height & Weight: Anesthesia: Height & Weight Height 5 ft 5 in 03/17/24 07:02 Weight: 120.4 kg 03/17/24 07:02 Body Mass Index (BMI) 44.1 03/17/24 07:02 Respiratory Assessment Respiratory Assessment - accounts receivable administrator: Respiratory Tract Infection Hx - accounts receivable administrator Hx Respiratory Tract Infection No 03/16/24 09:05 STOP Sleep Apnea STOP Sleep Apnea - accounts receivable administrator: STOP Sleep Apnea - accounts receivable administrator Hx Hypertension No 03/16/24 09:05 Hx Sleep Apnea Yes 03/16/24 09:05 CPAP Yes: NON COMPLIANT 03/16/24 09:05 BIPAP No 03/16/24 09:05 Do you snore loudly (louder than talking or can be heard Do you often feel tired/ fatigued/ sleepy during daytime? Has anyone observed you stop breathing during sleep? STOP Results Positive 03/16/24 09:05 QUESTION #5 FULL TEXT : Do you snore loudly (louder than talking or can be heard through closed doors)? Tobacco Use History Tobacco Use History - accounts receivable administrator: Tobacco Use History - accounts receivable administrator Tobacco Use Smoking Status Never smoker 03/16/24 09:05 Hx Tobacco Use No 03/16/24 09:05 Years Smoking Packs Smoked per Day Smoking Cessation Date was within the last 15 years Hx Smoking Cessation Date Hx Smoking Cessation Counseling Hematologic Medial History Hematologic Hx - accounts receivable administrator: Hematologic Medical Hx - public relations account executive Hx of Blood Transfusion No 03/16/24 09:05 Hx of Transfusion in last 3 No 03/16/24 09:05 Months Date of Last Transfusion (if within last 3 months) Ever experience any problems No 03/16/24 09:05 with transfusion(s)? Specify any problems Hx of Preganancy in last 3 N/A 03/16/24 09:05 Months Nurse Filling Out Transfusion NBUCHER 03/16/24 09:05 & Questions: Date: 03/16/24 03/16/24 09:05 Time: 09:06 03/16/24 09:05 Patient unable to answer at this time (ie. confused, unrespo /Reproduction History /Reproductive History - accounts receivable administrator: /Reproductive Hx- accounts receivable administrator Hx Now No 03/16/24 09:05 Gestational Age (in weeks): EDC: Hx Hx Para Hx Section SAB No 03/16/24 09:05 PFSH Medical History Lung nodules Preventative health care Colon cancer screening UTI (urinary tract infection) CHRISTIANA (obstructive sleep apnea) Chronic fatigue Lung nodule seen on imaging study Family history of early CAD Generalized anxiety disorder Hyperlipidemia Hypertension Arthritis Anemia Migraine headache Seizures Non-smoker CPAP (continuous positive airway pressure) dependence Sleep apnea Leg cramps History of pain when walking History of edema Abnormal uterine bleeding Tiredness Weight loss Back pain Neck pain Varicose veins of both lower extremities Hair loss disorder Chronic back pain Obesity Vitamin B12 deficiency Home Medications ?Medication ?Instructions ?Recorded ?Last Taken ?Type syringe with needle, safety 3 mL #100 ea 03/18/23 Unknown Rx 25 gauge x 1 (Easy Touch SheathLock Syringe with Needle) aspirin 81 mg tablet,delayed 81 mg PO DAILY stent 05/20/23 01/31/24 08:11 History release 81 mg clopidogrel 75 mg tablet (Plavix) 75 mg PO DAILY 12/02/23 11/30/23 History cyanocobalamin (vitamin B-12) 1,000 mcg subcut QMONTH gastric 12/02/23 01/13/24 History 1,000 mcg/mL injection solution sleeve epinephrine 0.1 mg/0.1 mL 0.1 ml subcut X1 #2 ea 02/10/24 Unknown Rx injection, auto-injector ondansetron 4 mg disintegrating 4 mg PO Q8H PRN PRN Nausea #10 tabs 02/20/24 Unknown Rx tablet sucralfate 100 mg/mL oral 10 ml PO BID 30 days #600 mL 03/03/24 Unknown Rx suspension Allergy/AdvReac Type Severity Reaction Status Date / Time nut - unspecified (nuts) Allergy Severe Angioedema Verified 03/17/24 07:00 ibuprofen (From Motrin) AdvReac Intermediate Shortness Verified 03/16/24 09:02 of breath Family History Father Diabetes Heart disease Lung cancer smoker- agent orange Arthritis Cancer Mother High cholesterol Surgical History Hx of hysterectomy Hx of surgical procedure Status post hysterectomy (~10/17/21) Hx laparoscopic cholecystectomy Hx of bilateral cataract extraction History of carpal tunnel surgery of left wrist History of endometrial ablation History of gastric stapling History of History of tonsillectomy History of tubal ligation Social History Smoking Status: Never smoker alcohol intake: never substance use type: does not use caffeine: Yes what type of physical activity do you participate in: none seatbelt use: always do you feel safe at home: Yes additional social history: [employer] in [place] patient works at [employer] Review of Systems (Anesthesia) ROS Narrative System reviewed and no additional complaints, except as documented.
--- NOTE | 2024-03-17 07:54 | PCM.HP.STD ---
HPI - General General Date of Admission: 03/17/24 Date of Service: 03/17/24 Chief Complaint: Dysphagia HPI Narrative FABIENNE RFANKS, is a 48 F who presents for evaluation of ongoing dysphagia. BGI 11.12.23 established She has PMHx pertinent for lung nodules, CHRISTIANA, HTN, HLD, urge and stress incontinence, chronic back pain and B12 deficiency. On interview, she tells me she has had multiple abdominal surgeries most recently a hysterectomy in 2021. Since then she has been having GI symptoms with constipation and sharp abdominal pains. She feels it is a GI concern rather than gynecologic. The pain happens periodically but mostly right before she needs to have a bowel movement. She has 1-2 bowel movements per week and this is normal for her. She has never tried medications for constipation. She has never had a colonoscopy. She denies diarrhea or blood in her stool. She has occasional dysphagia to solids and liquids. She feels like food will get stuck. Her throat will make a 'noise' and she will have to drink water for the food to pass. She has a surgical hx of sleeve gastrectomy in 2018. She did have an EGD before this surgery which did not have abnormalities. She denies n/v or heartburn. EGD 12.04.23 Z-line irregular, 40 cm from the incisors. Biopsied. - Small hiatal hernia. - Chronic gastritis. Biopsied. - A sleeve gastrectomy was found, characterized by healthy appearing mucosa. - Erythematous duodenography. Biopsied. Colonoscopy 12.04.23 Diverticulosis in the recto-sigmoid colon and in the sigmoid colon. - Congested mucosa in the sigmoid colon, at the splenic flexure, at the hepatic flexure and in the cecum. Biopsied. OV 12.16.23; Pt continues to have symptoms with dysphagia and heartburn. She feels like food gets stuck. She has not been taking a PPI. She has no new issues today but is here to discuss her test results. [facility] inpatient 01.31.24-02.10.24- Acute anaphylactic reaction, dysphagia, Dobbhoff tube placement EGD 02.08.24- Laryngeal edema, ulceration was found diffusely throughout the larynx. Normal esophagus OV 1.2.25 Pt reports feeding tube was removed in the ER on 02/19. Continues to have trouble swallowing, food getting stuck. States her tongue is still numb. States she was previously taking Pantoprazole 20mg QD as prescribed at last visit but has not been taking it since hospital discharge. [facility] Medical History Lung nodules Preventative health care Colon cancer screening UTI (urinary tract infection) CHRISTIANA (obstructive sleep apnea) Chronic fatigue Lung nodule seen on imaging study Family history of early CAD Generalized anxiety disorder Hyperlipidemia Hypertension Arthritis Anemia Migraine headache Seizures Non-smoker CPAP (continuous positive airway pressure) dependence Sleep apnea Leg cramps History of pain when walking History of edema Abnormal uterine bleeding Tiredness Weight loss Back pain Neck pain Varicose veins of both lower extremities Hair loss disorder Chronic back pain Obesity Vitamin B12 deficiency Home Medications ?Medication ?Instructions ?Recorded ?Last Taken ?Type syringe with needle, safety 3 mL #100 ea 03/18/23 Unknown Rx 25 gauge x 1 (Easy Touch SheathLock Syringe with Needle) aspirin 81 mg tablet,delayed 81 mg PO DAILY stent 05/20/23 01/31/24 08:11 History release 81 mg clopidogrel 75 mg tablet (Plavix) 75 mg PO DAILY 12/02/23 11/30/23 History cyanocobalamin (vitamin B-12) 1,000 mcg subcut QMONTH gastric 12/02/23 01/13/24 History 1,000 mcg/mL injection solution sleeve epinephrine 0.1 mg/0.1 mL 0.1 ml subcut X1 #2 ea 02/10/24 Unknown Rx injection, auto-injector ondansetron 4 mg disintegrating 4 mg PO Q8H PRN PRN Nausea #10 tabs 02/20/24 Unknown Rx tablet sucralfate 100 mg/mL oral 10 ml PO BID 30 days #600 mL 03/03/24 Unknown Rx suspension Allergy/AdvReac Type Severity Reaction Status Date / Time nut - unspecified (nuts) Allergy Severe Angioedema Verified 03/17/24 07:00 ibuprofen (From Motrin) AdvReac Intermediate Shortness Verified 03/16/24 09:02 of breath Family History Father Diabetes Heart disease Lung cancer smoker- agent orange Arthritis Cancer Mother High cholesterol Surgical History Hx of hysterectomy Hx of surgical procedure Status post hysterectomy (~10/17/21) Hx laparoscopic cholecystectomy Hx of bilateral cataract extraction History of carpal tunnel surgery of left wrist History of endometrial ablation History of gastric stapling History of History of tonsillectomy History of tubal ligation Social History Smoking Status: Never smoker alcohol intake: never substance use type: does not use caffeine: Yes what type of physical activity do you participate in: none seatbelt use: always do you feel safe at home: Yes additional social history: [employer] in [place] patient works at [employer] Constitutional Constitutional: Denies fatigue, fever(s), poor appetite, weight gain or weight loss Gastrointestinal Gastrointestinal: Denies belching, bloating, change in bowel habits, change in stool character, chewing difficulty, coffee ground emesis, constipation, cramping, diarrhea, dyspepsia, dysphagia, early satiety, excessive flatus, fecal incontinence, heartburn, hematemesis, hematochezia, hemorrhoids, loose stools, melena, nausea, odynophagia, rectal bleeding, tenesmus, vomiting or weight changes Vital Signs Vital Signs Vital Signs: 03/17/24 07:02 03/17/24 07:02 03/17/24 07:26 Temperature 96.9 F L 96.9 F L Temperature Source Temporal Pulse Rate 83 83 Respiratory Rate 16 16 Respiratory Pattern Normal Blood Pressure 123/68 H 123/68 H Blood Pressure Mean 86 Blood Pressure Source Monitor Blood Pressure Position Semi-Fowlers Blood Pressure Location Right Arm Pulse Ox 96 96 Oxygen Delivery Method Room Air Weight Weight: 265 lb 6.985 oz Body Mass Index (BMI) 44.1 Physical Exam Const alert, oriented x3, no apparent distress and healthy appearing General Appearance: cooperative GI normal to inspection, nondistended, normoactive bowel sounds, soft to palpation, non-tender and non-distended Percussion: normal to percussion Rectal Exam: deferred Assessment & Plan Assessment/Plan (1) Dysphagia: PLAN: She recently had a allergic reaction (thought to be secondary to sesame seed) with an acute airway obstruction with NG tube placement secondary to feeding difficulty after developing ulcer in her throat who presented to the emergency department with a chief complaint of dislodged feeding tube. She stated that after a shower she noted that she was coughing heavily and noted that the tube was coiled in her mouth. She states that she has noted that at the end of the tube had been continuously getting longer and longer. Patient states that she has been eating and drinking by mouth. Patient will had a workup performed here including a x-ray to ensure no evidence of perforation. On the differential diagnose includes but not limited to NG tube dislodgment, perforation although once again have very low suspicion for this as the patient is nontoxic in appearance has no pain and is tolerating her secretions well. Patient's x-ray was reviewed by myself and by radiology Which showed no acute evidence of cardiopulmonary processes. I requested that the tube be removed while in the ED. Currently at this time she is having some esophageal dysphagia. Recommend prednisolone 10 mL/day and Carafate 5 to 10 mL twice a day x 1 month. We will also repeat upper endoscopy. P She is agreeable this plan as well as significant other at bedside. All question concerns answered. (2) Anaphylaxis: Status: Acute (3) Celiac disease: Status: Acute Medications: New sucralfate 10 mL PO BID 30 days 600 mL 0RF prednisolone sodium phosphate 10 mg (5 mL) PO QAM 30 days 150 mL 0RF
--- NOTE | 2024-03-17 08:23 | PCM.POST.ANE ---
Anesthesia: Postop Eval I Current Vital Signs Temperature: 97.4 F Pulse Rate: 81 Blood Pressure: 127/85 Respiratory Rate: 16 Pulse Ox: 96 Oxygen Delivery Method: Room Air Assessment Airway patent: Yes Spontaneous unlabored respirations: Yes Mental status: Asleep nausea: No Vomiting: No Anesthesia Complication: No Fluid Hydration Crystalloid volume administer (ml): 30 Total IV fluid infused: 30 Progress Note Anesthesia document: Postop Eval 1 completed: Yes
--- NOTE | 2024-03-17 08:25 | OP.CCLET_ITS ---
03/17/2024 Andreas Calvert [facility], Sling Operator-c Re : Upper GI endoscopy procedure for Yelena Caceres Dear Nehal This procedure was performed on March. My impressions and recommendations are as follows: Impressions : - The nasopharynx and oropharynx are abnormal. - Non-severe reflux esophagitis with no bleeding. - Small hiatal hernia. - Bile duodenitis. Biopsied. Recommendations : - Discharge patient to home. - Resume previous diet. - Continue present medications. - Await pathology results. My findings are described in the full procedure note, which is enclosed. If I can be of further assistance, please feel free to contact me at . Sincerely, Brian Zuniga, 03/17/2024 8:25:12 AM This report has been signed electronically.
--- NOTE | 2024-03-17 08:25 | OP.EGD_ITS ---
Patient Name: Yelena Caceres Procedure Date: 03/17/2024 8:03 AM Date of : 1975 Age: 48 Procedure: Upper GI endoscopy Indications: Dysphagia, Odynophagia Providers: Brian Zuniga DO Referring MD: Andreas Calvert [facility], Width Stripper-c Medicines: Monitored Anesthesia Care Patient Profile: This is a 48 year old female. Refer to note in patient chart for documentation of history and physical. Patient has symptoms of chronic dysphagia and dysphagia with both liquids and solids. Complications: No immediate complications. Procedure: Pre-Anesthesia Assessment: - Prior to the procedure, a History and Physical was performed, and patient medications and allergies were reviewed. The patient is competent. The risks and benefits of the procedure and the sedation options and risks were discussed with the patient. All questions were answered and informed consent was obtained. Patient identification and proposed procedure were verified by the physician in the pre-procedure area. Mental Status Examination: alert and oriented. Airway Examination: normal oropharyngeal airway and neck mobility. Respiratory Examination: clear to auscultation. CV Examination: normal. Prophylactic Antibiotics: The patient does not require prophylactic antibiotics. Prior Anticoagulants: The patient has taken no anticoagulant or antiplatelet agents. ASA Grade Assessment: II - A patient with mild systemic disease. After reviewing the risks and benefits, the patient was deemed in satisfactory condition to undergo the procedure. The anesthesia plan was to use monitored anesthesia care (MAC). Immediately prior to administration of medications, the patient was re-assessed for adequacy to receive sedatives. The heart rate, respiratory rate, oxygen saturations, blood pressure, adequacy of pulmonary ventilation, and response to care were monitored throughout the procedure. The physical status of the patient was re-assessed after the procedure. After obtaining informed consent, the endoscope was passed under direct vision. Throughout the procedure, the patient's blood pressure, pulse, and oxygen saturations were monitored continuously. The Endoscope was introduced through the mouth, and advanced to the duodenal bulb. The upper GI endoscopy was accomplished without difficulty. The patient tolerated the procedure well. Scope In: 8:11:45 AM Scope Out: 8:14:58 AM Total Procedure Duration Time 0 hours 3 minutes 13 seconds Findings: The nasopharynx and oropharynx are abnormal. Non-severe esophagitis with no bleeding was found 39 to 40 cm from the incisors. A small hiatal hernia was present. The exam of the stomach was otherwise normal. Patchy mild inflammation characterized by congestion (edema), erosions and erythema was found in the duodenal bulb and in the first portion of the duodenum. Biopsies were taken with a cold forceps for histology. Verification of patient identification for the specimen was done. Estimated blood loss was minimal. Impression: - The nasopharynx and oropharynx are abnormal. - Non-severe reflux esophagitis with no bleeding. - Small hiatal hernia. - Bile duodenitis. Biopsied. Recommendation: - Discharge patient to home. - Resume previous diet. - Continue present medications. - Await pathology results. Procedure Code(s): --- Professional --- 73990, Esophagogastroduodenoscopy, flexible, transoral; with biopsy, single or multiple CPT copyright 2021 [employer]. All rights reserved. The codes documented in this report are preliminary and upon camp program director review may be revised to meet current compliance requirements. Brian Zuniga DO 03/17/2024 8:25:12 AM This report has been signed electronically. Number of Addenda: 0 Note Initiated On: 03/17/2024 8:03 AM
--- NOTE | 2024-03-17 08:42 | PCM.POSTANE2 ---
Anesthesia Postop Eval I Sum Postop Eval Completion status Anesthesia document: Postop Eval 1 completed: Yes Anesthesia Postop Eval I Summary Anesthesia Postop Eval I Summary: Anesthesia Postop Eval I: Assessment Summary Airway patent Yes 03/17/24 08:24 [email or web address] Spontaneous unlabored Yes 03/17/24 08:24 [email or web address] respirations Mental status Asleep 03/17/24 08:24 [email or web address] nausea No 03/17/24 08:24 [email or web address] Vomiting No 03/17/24 08:24 [email or web address] Anesthesia Postop Eval I: Fluid Summary Crystalloid volume administer 30 03/17/24 08:24 [email or web address] (ml) Colloids volume administered ( ml) Blood Product volume administered (ml) Total IV fluid infused 30 03/17/24 08:24 [email or web address] Anesthesia Postop Eval I: Summary Notes Anesthesia Complication No 03/17/24 08:24 [email or web address] Anesthesia Complication Comment: Post-operative progress note Anesthesia: Postop Eval II Evaluation Mental status: Awake Pain Level: 0 nausea: No Vomiting: No
[2024-03-17 09:52] LABS: Internal QC Validated? YES +Cl - CLEAR BKGD; Pregnancy, Serum, hCG Quali. NEGATIVE Negative
[2024-03-17 09:53] LABS: Erythrocyte Sedimentation Rate 35 mm/hr (0-30)
[2024-03-17 09:56] LABS: Absolute Lymphocyte Count 1.48 X10^3/uL (0.83-4.51); Absolute Neutrophil Count 4.8 X10^3/uL (2.0-7.7); Basophil# 0.04 X10^3/uL; Basophil% 0.6 % (0-1); Eosinophil# 0.19 X10^3/uL; Eosinophils% 2.7 % (0-5); Hematocrit 32.6 % (37-47); Hemoglobin 10.7 g/dL (12.0-15.0); Lymphocyte # 1.48 X10^3/ul (0.83-4.51); Lymphocyte % 21.2 % (19-41); Mean Corp Hgb Conc 32.8 g/dL (32-36); Mean Corpuscular Hgb 27.7 pg (27.0-32.0); Mean Corpuscular Volume 84.5 fL (81-99); Mean Platelet Vol. 10.4 fl (6.2-12.0); Monocyte# 0.49 X10^3/uL; NRBC Flagged by Analyzer 0 % (0-5); Neutrophil # 4.75 X10^3/uL (2.7-7.7); Neutrophil % 68.1 % (47-70); Platelet Count 264 K/mm3 (150-450); RBC Distribution Width CV 14.5 % (11.6-14.6); RBC Distribution Width SD 44.2 fl (35.1-43.9); Red Blood Count 3.86 M/mm3 (4.2-5.4)
[2024-03-17 10:06] LABS: Vitamin B12 453 pg/mL (211-911); Vitamin D,25 Hydroxy 26.1 ng/mL
[2024-03-17 10:16] LABS: ALB/GLOB Ratio 0.8 RATIO (0.9-2.4); AST(SGOT) 14 U/L (15-37); Alanine Aminotransfer ALT/SGPT 19 U/L (13-56); Albumin, Serum 3.1 g/dL (3.2-5.0); Alkaline Phosphatase 113 U/L (45-117); Anion Gap 7 (5-15); BUN 11 mg/dL (7-18); BUN/Creat Ratio 19.2 RATIO (10-20); CRP 9.42 mg/L (0.0-3.0); Calcium,Total 9.6 mg/dL (8.5-10.1); Chloride 109 mmol/L (98-107); Creatinine, Serum 0.57 mg/dL (0.55-1.02); EST Glomerular Filtration Rate 120 mL/min (>60); Est Glom Filt Rate - Afr Amer 145 mL/min (>60); Estimated Creatinine Clearance 160.35 ml/min; Glucose 92 mg/dL (74-106); Iron Binding Capacity,Total 316 ug/dL (250-450); Potassium 3.5 mmol/L (3.5-5.1); Protein, Total 7.1 g/dL (6.4-8.2); Sodium Level 140 mmol/L (136-145)
[2024-03-21 00:07] LABS: Clam <0.10 kU/L (Class 0); Codfish <0.10 kU/L (Class 0); Corn <0.10 kU/L (Class 0); Egg, White <0.10 kU/L (Class 0); Milk (Cow) <0.10 kU/L (Class 0); Peanut <0.10 kU/L (Class 0); SCALLOP <0.10 kU/L (Class 0); SESAME SEED <0.10 kU/L (Class 0); Shrimp <0.10 kU/L (Class 0); Soybean <0.10 kU/L (Class 0); Walnut, (Food) <0.10 kU/L (Class 0); Wheat <0.10 kU/L (Class 0)
[2024-03-21 16:09] LABS: ACCA 100 units (0-90); ALCA 0 units (0-60); AMCA 20 units (0-100); Cytoplasmic Ab (C-ANCA) <1:20 titer (Neg:<1:20); Endomysial Antibody IgA Negative (Negative); Immunoglobulin A 216 mg/dL (87-352); Immunoglobulin E 24 IU/mL (6-495); Immunoglobulin G 1022 mg/dL (586-1602); Immunoglobulin M 41 mg/dL (26-217); Perinuclear Ab (P-ANCA) <1:20 titer (Neg:<1:20); gASCA 34 units (0-50); t-Transglutaminase IgA <2 U/mL (0-3)
[2024-03-21 19:07] LABS: C1 EST Inhibitor, Functional >110 (.)
== END 2024-03-17 09:06 | disposition home or self-care (01) ==
LOC: EN 06:41 → AC 06:42
PROVIDERS: Student in an Organized Health Care Education/Training Program; PCP Nurse Practitioner Family; Referring Provider Nurse Practitioner Family; Visit Provider Internal Medicine Gastroenterology
PROC: 0DJ08ZZ Inspection of Upper Intestinal Tract, Via Natural or Artificial Opening Endoscopic (ICD-10-PCS; CPT 43235; principal; 2024-03-17 07:40)
DX: R13.10 Dysphagia, unspecified (principal); K44.9 Diaphragmatic hernia without obstruction or gangrene; Z90.710 Acquired absence of both cervix and uterus; E78.5 Hyperlipidemia, unspecified; K29.80 Duodenitis without bleeding; Z79.02 Long term (current) use of antithrombotics/antiplatelets; Z79.82 Long term (current) use of aspirin; I10 Essential (primary) hypertension; G47.33 Obstructive sleep apnea (adult) (pediatric); Z99.89 Dependence on other enabling machines and devices; Z90.49 Acquired absence of other specified parts of digestive tract; Z98.41 Cataract extraction status, right eye; Z98.42 Cataract extraction status, left eye; Z98.51 Tubal ligation status; T78.2XXA Anaphylactic shock, unspecified, initial encounter; K90.0 Celiac disease; K21.00 Gastro-esophageal reflux disease with esophagitis, without bleeding; R93.3 Abnormal findings on diagnostic imaging of other parts of digestive tract; K31.89 Other diseases of stomach and duodenum
CPT/HCPCS: 43239; 80053; 82306; 82607; 82746; 82784; 82785; 83516; 83520; 83550; 84703; 85025; 85652; 86003; 86036; 86037; 86140; 86160; 86161; 86255; 86671; 88305; A4216; J2405

== ENCOUNTER 2024-03-25 10:00 | Outpatient (RCR) | payer OTHER, SELFPAY ==
--- NOTE | 2024-02-22 17:19 | ST ---
[facility] Speech Pathology [address] [place] [address] Modified Barium Swallow Study MR#: [id number] Name: FABIENNE FRANKS Rep #: [id number] : 1975 48 Modified Barium Swallow Patient Information Study Date: 02/18/24 Study Time: 13:00 Direct Billable Minutes: 77 Total Minutes procedure & reportin Diagnosis: Dysphagia R13.10 Referring Physician: Jagdeep Valverde Reason for Referral: Re-assess swallow function and aspiration risk to determine recommendations for least restrictive diet textures and strategies to decrease risk for aspiration. 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 Thompson, Lung nodules, Preventative health care, Colon cancer screening, UTI, Chronic fatigue, Family history of early CAD, Generalized anxiety disorder, HLD, HTN, Arthritis, Anemia, Migraine, Headache, Seizures, Non-smoker, CPAP dependence, Leg cramps, History of pain when walking, History of edema, Abnormal uterine bleeding, Tiredness, Weight loss, Back pain, Neck pain, Varicose veins of both lower extremities, Hair loss disorder, Chronic back pain, Obesity, Vitamin B12 deficiency. The patient presented [facility] ED on 01/31/24 with history of significant facial swelling, tongue and throat swelling, pruritus that started ~5 minutes prior to ED arrival following ingestion of food at [employer]. Per pt and family, hx of Celiacs, as well as allergy to peanuts, mangoes, and potentially shellfish. Per report, he notes that she also had similar reaction, but less severe after [employer] and took zyrtec with improvement. Soy, green/red/yellow pepper, lo mein, soy sauce, beef was in her dish per [employer]. They do not use peanut oil. Unclear if separate pans are used on not. In the ED, given severity of presentation and worsening airway compromise stat airway team was initiated, eventually placed an i-gel supraglottic airway as well as an ET tube inside of the i-gel via fiberoptic. After securing her airway, the patient was also placed on an epinephrine drip. Pt was admitted to ICU. Pt was extubated in the AM 02/03/[address] consult prior to diet advancement. Pt was recommended NPO 02/03/2024 due to poor secretion management. 02/04/2024 she was cleared for ice chips; however, odynophagia onset. 02/08/24 pt underwent EGD for placement of NG tube. 02/08/2024 Impression: Laryngeal edema?Ulceration was found diffusely, throughout the larynx?Normal esophagus?Feeding tube placement was successfully performed.? Pt was recommended for FEES 02/10/2024 to assess swallow function and aspiration risk to determine if the patient is safe for diet advancement. FEES revealed moderate-severe oropharyngeal dysphagia w/ recommendations for thin liquids only, sips by tsp, chin tuck and double swallow each sip, slow rate, intermittent cough and re-swallow, sitting upright for oral intake, medications via NG tube, NG tube present to meet nutrition/hydration needs. She was discharged home w/ this diet and recommended for repeat instrumental assessment of swallow function in 1 week. Current Diet Ordered: Thin liquids only; NG Dentition: WNL Mental Status: WNL Respiratory Status: Oxygenating on Room Air Penetration-Aspiration Scale Penetration-Aspiration Scale: OBJECTIVE ASSESSMENT OF SWALLOW FUNCTION (QUANTITATIVE ? PER TRIAL): PENETRATION / ASPIRATION SCALE (HERNANDEZ): 1 = does not enter airway 2 = enters airway/above vocal folds/ejected 3 = enters airway/above vocal folds/not ejected 4 = enters airway/contacts vocal folds/ejected 5 = enters airway/contacts vocal folds/not ejected 6 = enters airway/below vocal folds/ejected 7 = enters airway/below vocal folds/not ejected despite effort 8 = enters airway/below vocal folds/no effort VIDEOFLOROSCOPIC SCALE SCORE (HERNANDEZ): Grade I = aspiration of material that has penetrated into the laryngeal vestibule, intact cough reflex Grade II = aspiration < 10 % of the bolus, intact cough reflex Grade III = aspiration of < 10 % of the bolus, reduced cough reflex or aspiration of > 10 % of the bolus, intact cough reflex Grade IV = aspiration of > 10 % of the bolus, reduced cough reflexPenetration-Aspiration Scale Score Thin Liquid via teaspoon Chin tuck: Result: 1= does not enter airway Thin Liquid via teaspoon Trial 2: Result: 1= does not enter airway Thin Liquid via small single sip: cup: Result: 4= enters airway/contacts vocal folds/ejected [place] Thick Liquid via small single sip: cup: Result: 1= does not enter airway Honey Thick Liquid via teaspoon: Result: 1= does not enter airway Pudding via teaspoon: Result: 1= does not enter airway 1/2 Potato Chip coated in barium pudding: Result: 1= does not enter airway Thin Liquid via single sip: straw Effortful swallow: Result: 2= enter airway/above vocal folds/ejected Thin Liquid via sequential sips:straw: Result: 2= enter airway/above vocal folds/ejected Oral Phase Labial Seal: No Labial Escape Tongue Control During Bolus Hold: Posterior escape of less than half of bolus Bolus Preparation/Mastication: Timely and efficient chewing and mashing Bolus Transport/Lingual Motion: Delayed initiation of tongue motion Oral Residue: Trace residue lining oral structures Pharyngeal Phase Initiation of Pharyngeal Swallow: Bolus head at posterior laryngeal surgace of epiglottis Soft Palate Elevation: No bolus between soft palate and pharyngeal wall Laryngeal Elevation: Comp. Superior move thyroid cart w/comp. apprx arytenoid cart-epig pet Anterior Hyoid Excursion: Partial anterior movement Epiglottic Movement: Partial inversion (inconsistent) Laryngeal Vestibule Closure at Height of Swallow: Incomplete; narrow column of air/contrast in laryngeal vestibule (very trace amount of thin barium on VF during the swallow w/ thin by cup) Pharyngeal Stripping Wave: Present - diminished Pharyngoesophageal Segment Opening: Parital distension and partial duration; parital obstruction of flow Tongue Base Retraction: Narrow column of contrast between tongue base & post. pharyngeal wall Pharyngeal Residue: Collection of residue within or on pharyngeal structures Diagnosis/Impression Diagnosis: Mild pharyngeal dysphagia R13.13 Impression: The oral phase appears grossly WNL. The pharyngeal phase is marked by... -Mild pharyngeal residues most notable w/ pudding and cookie due to mildly decreased TB retraction, pharyngeal stripping wave, and UES opening/duration. Liquid wash effectively cleared residues. -Good airway closure during the swallow attributed to good laryngeal elevation. Epiglottic inversion partial on some trials likely due to presence of NG tube in pharynx. -Very trace laryngeal penetration of thin liquids by cup to the vocal folds w/ full ejection. No aspiration observed. Recommendations Diet: Regular Textures (Easy to Chew textures - IDDSI Level 7) and Thin Liquids Comment: Add sauces/gravies to dry textures NG available to supplement nutrition/hydration needs if the patient is unable to meet nutrition/hydration needs by mouth given continued odynophagia (10/09 when not managed by pain medication) Compensatory Strategies: Small Bites, Small Sips (Effortful/hard swallows), Slow Rate, Alternate bites/solids and sips/liquids, Sitting upright and Remain sitting upright for 30 minutes after PO intake Recommend Repeat Modified Barium Swallow: No Need for Skilled Speech Therapy Services: Yes Comment: Due to mild residual pharyngeal deficits, will recommend the patient follow up w/ OP ST for training in oropharyngeal exercise program to promote improved TB retraction, pharyngeal stripping wave, and UES opening/duration. Consider implementation of Lynn, Effortful, and Yawn stretch. Education Completed: 1. Described result of evaluation. Comment: SHOEMAKING FINISHER reviewed results and recommendations of MBSS w/ pt. Education well received. Pt is planning to discuss study w/ PAYROLL ADMINISTRATOR, Jagdeep Valverde. If she is able to resume a full oral diet, she would like NG tube removed as soon as possible. SHOEMAKING FINISHER encouraged further discussion of results of MBSS w/ PAYROLL ADMINISTRATOR. Status Active ST Patient: Active Contact Information [facility] Speech Therapy:: Gisselle Solis M.A. [facility]-SHOEMAKING FINISHER? Speech-Language Pathologist?? [facility] [address] [place] [address]? [email or web address]?? [phone] 02/18/24 [id number] <Electronically signed by Gisselle Solis M.A., CCC-SHOEMAKING FINISHER>
--- NOTE | 2024-02-29 17:17 | HP.SP.EVAL ---
Visit History Visit Info Date of Eval: 02/22/24 Visit: 1 Patient's Approved Number of Visits: 25 Thaw Shed Heater Tender: CRISTIANO History Attending Doctor: Referring Doctor: Reason for Referral: DYSPHAGIA. DR TO FAX RX Medical Diagnosis: Dysphagia Date of Onset of Diagnosis: 01-31-24 Previous speech therapy: Yes Results: Pt was recommended NPO 02/03/2024 due to poor secretion management. 02/04/2024 she was cleared for ice chips; however, odynophagia onset. 02/08/24 pt underwent EGD for placement of NG tube. FEES revealed moderate-severe oropharyngeal dysphagia w/ recommendations for thin liquids only, sips by tsp, chin tuck and double swallow each sip, slow rate, intermittent cough and re-swallow, sitting upright for oral intake, medications via NG tube, NG tube present to meet nutrition/hydration needs. She was discharged home w/ this diet and recommended for repeat instrumental assessment of swallow function in 1 week with MBSS completed on 02/18/24. ( See below for results.) Other Relevant Medical History/Diagnoses/Surgery: The patient presented [facility] ED on 01/31/24 with history of significant facial swelling, tongue and throat swelling, pruritus that started ~5 minutes prior to ED arrival following ingestion of food at [employer]. Per pt and family, hx of Celiacs, as well as allergy to peanuts, mangoes, and potentially shellfish. Per report, he notes that she also had similar reaction, but less severe after [employer] Lobster and took zyrtec with improvement. In the ED, given severity of presentation and worsening airway compromise stat airway team was initiated, eventually placed an i-gel supraglottic airway as well as an ET tube inside of the i-gel via fiberoptic. After securing her airway, the patient was also placed on an epinephrine drip. Pt was admitted to ICU. Pt was extubated in the AM 02/03/2024. 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 Thompson, Lung nodules, Preventative health care, Colon cancer screening, UTI, Chronic fatigue, Family history of early CAD, Generalized anxiety disorder, HLD, HTN, Arthritis, Anemia, Migraine, Headache, Seizures, Non-smoker, CPAP dependence, Leg cramps, History of pain when walking, History of edema, Abnormal uterine bleeding, Tiredness, Weight loss, Back pain, Neck pain, Varicose veins of both lower extremities, Hair loss disorder, Chronic back pain, Obesity, Vitamin B12 deficiency. Medications related to this diagnosis: Plavix, baby aspirin, antibiotic, B12 shot. Smoking Status: Never smoker Diagnosis Diagnosis: Mild pharyngeal dysphagia R13.13 Pain Is pain an issue with your current prescribed condition?: Yes Personal Preferred language: Macedonian Patient Allergies Allergies Allergies: Allergies peanut Allergy (Severe, Verified 02/20/24 12:37) Angioedema ibuprofen (From Motrin) Adverse Reaction (Intermediate, Verified 02/20/24 12:37) Shortness of breath Subjective Dysphagia Symptoms Reported Symptoms/Problems with: Difficulty Swallowing Solids, Difficulty Swallowing Liquids, Difficulty Swallowing Pills and Pain on Swallowing Current Diet Solids Current Diet: Regular and Soft Other: Easy to chew Current Diet Liquids Current Liquids: Thin Comments NG tube: -: Patient had NG tube placed while in hospital. It was removed on 02-20-24 when it changed location and ER removed it. Objective Dysphagia Administered by Administered by: Self Thin Liquids Administred via: Cup Oral Transit: WNL Bolus clearance: fully cleared Gagging: No Cough: none observed/unable to assess Patient Report: Patient reported that she is able to drink now without difficulty. Soft & Bite sized (Mechanical) Oral Preparation: WNL Oral Transit: WNL Bolus clearance: fully cleared Cough: none observed/unable to assess Patient Report: Patient is very careful when chewing as a little over half her tongue is numb. She reported no difficulty with swallowing except when foods are dry. Swallowing Impairment Contributing Factors to Swallowing Impairment: Reduced Oral Strength/Coordination/Sensation Impact Impact on Safety & Functioning: Risk for Inadequate Nutrition/Hydration Recommendations Modified Barium Swallow/Cookie Swallow Recommended: No Swallowing Treatment: Yes Diet Texture Recommendations Solids: Easy to Chew (Level 7) Liquids: Thin (Level 0) Safety Saftey Precautions/Swallowing Recommendations (Check all that Apply): Upright Position at Least 30 Minutes After Meals, Small Sips & Bites when Eating, Alternate Liquids & Solids and Other (Specify Below) Other: Effortful swallow Results Swallowing Within Normal Limits: No Swallowing Diagnosis: Pharyngeal Phase Dysphagia (R13.13) Severity: Mild Objective Oral Motor Oral Status Dentition: WNL Labial Impairment: WNL Closure: WNL Involuntary Movement noted: No Lingual Comments Comments: Patient reports that right side just over half of her tongue remains numb. Jaw Impairment: WNL Respiratory Status Respiratory Status: Room Air Modified Barium Results Hx If Applicable Enter into a NOTE MBS Report Entered: Yes MBS Results (from prior exam): 02/22/24 17:19 Speech Therapy by Arvind De La Cruz [facility] Speech Pathology [address] [place] [address] Modified Barium Swallow Study MR#: [id number] Name: FABIENNE FRANKS Rep #: [id number] : 1975 48 Modified Barium Swallow Patient Information Study Date: 02/18/24 Study Time: 13:00 Direct Billable Minutes: 77 Total Minutes procedure & reportin Diagnosis: Dysphagia R13.10 Referring Physician: Jagdeep Valverde Ranjan Reason for Referral: Re-assess swallow function and aspiration risk to determine recommendations for least restrictive diet textures and strategies to decrease risk for aspiration. 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 Thompson, Lung nodules, Preventative health care, Colon cancer screening, UTI, Chronic fatigue, Family history of early CAD, Generalized anxiety disorder, HLD, HTN, Arthritis, Anemia, Migraine, Headache, Seizures, Non-smoker, CPAP dependence, Leg cramps, History of pain when walking, History of edema, Abnormal uterine bleeding, Tiredness, Weight loss, Back pain, Neck pain, Varicose veins of both lower extremities, Hair loss disorder, Chronic back pain, Obesity, Vitamin B12 deficiency. The patient presented [facility] ED on 01/31/24 with history of significant facial swelling, tongue and throat swelling, pruritus that started ~5 minutes prior to ED arrival following ingestion of food at [employer]. Per pt and family, hx of Celiacs, as well as allergy to peanuts, mangoes, and potentially shellfish. Per report, he notes that she also had similar reaction, but less severe after Red Lobster and took zyrtec with improvement. Soy, green/red/yellow pepper, lo mein, soy sauce, beef was in her dish per [employer]. They do not use peanut oil. Unclear if separate pans are used on not. In the ED, given severity of presentation and worsening airway compromise stat airway team was initiated, eventually placed an i-gel supraglottic airway as well as an ET tube inside of the i-gel via fiberoptic. After securing her airway, the patient was also placed on an epinephrine drip. Pt was admitted to ICU. Pt was extubated in the AM 02/03/[address] consult prior to diet advancement. Pt was recommended NPO 02/03/2024 due to poor secretion management. 02/04/2024 she was cleared for ice chips; however, odynophagia onset. 02/08/24 pt underwent EGD for placement of NG tube. 02/08/2024 Impression: Laryngeal edema?Ulceration was found diffusely, throughout the larynx?Normal esophagus?Feeding tube placement was successfully performed.? Pt was recommended for FEES 02/10/2024 to assess swallow function and aspiration risk to determine if the patient is safe for diet advancement. FEES revealed moderate-severe oropharyngeal dysphagia w/ recommendations for thin liquids only, sips by tsp, chin tuck and double swallow each sip, slow rate, intermittent cough and re-swallow, sitting upright for oral intake, medications via NG tube, NG tube present to meet nutrition/hydration needs. She was discharged home w/ this diet and recommended for repeat instrumental assessment of swallow function in 1 week. Current Diet Ordered: Thin liquids only; NG Dentition: WNL Mental Status: WNL Respiratory Status: Oxygenating on Room Air Penetration-Aspiration Scale Penetration-Aspiration Scale: OBJECTIVE ASSESSMENT OF SWALLOW FUNCTION (QUANTITATIVE ? PER TRIAL): PENETRATION / ASPIRATION SCALE (HERNANDEZ): 1 = does not enter airway 2 = enters airway/above vocal folds/ejected 3 = enters airway/above vocal folds/not ejected 4 = enters airway/contacts vocal folds/ejected 5 = enters airway/contacts vocal folds/not ejected 6 = enters airway/below vocal folds/ejected 7 = enters airway/below vocal folds/not ejected despite effort 8 = enters airway/below vocal folds/no effort VIDEOFLOROSCOPIC SCALE SCORE (HERNANDEZ): Grade I = aspiration of material that has penetrated into the laryngeal vestibule, intact cough reflex Grade II = aspiration < 10 % of the bolus, intact cough reflex Grade III = aspiration of < 10 % of the bolus, reduced cough reflex or aspiration of > 10 % of the bolus, intact cough reflex Grade IV = aspiration of > 10 % of the bolus, reduced cough reflexPenetration-Aspiration Scale Score Thin Liquid via teaspoon Chin tuck: Result: 1= does not enter airway Thin Liquid via teaspoon Trial 2: Result: 1= does not enter airway Thin Liquid via small single sip: cup: Result: 4= enters airway/contacts vocal folds/ejected Hysham Thick Liquid via small single sip: cup: Result: 1= does not enter airway Honey Thick Liquid via teaspoon: Result: 1= does not enter airway Pudding via teaspoon: Result: 1= does not enter airway 1/2 Potato Chip coated in barium pudding: Result: 1= does not enter airway Thin Liquid via single sip: straw Effortful swallow: Result: 2= enter airway/above vocal folds/ejected Thin Liquid via sequential sips:straw: Result: 2= enter airway/above vocal folds/ejected Oral Phase Labial Seal: No Labial Escape Tongue Control During Bolus Hold: Posterior escape of less than half of bolus Bolus Preparation/Mastication: Timely and efficient chewing and mashing Bolus Transport/Lingual Motion: Delayed initiation of tongue motion Oral Residue: Trace residue lining oral structures Pharyngeal Phase Initiation of Pharyngeal Swallow: Bolus head at posterior laryngeal surgace of epiglottis Soft Palate Elevation: No bolus between soft palate and pharyngeal wall Laryngeal Elevation: Comp. Superior move thyroid cart w/comp. apprx arytenoid cart-epig pet Anterior Hyoid Excursion: Partial anterior movement Epiglottic Movement: Partial inversion (inconsistent) Laryngeal Vestibule Closure at Height of Swallow: Incomplete; narrow column of air/contrast in laryngeal vestibule (very trace amount of thin barium on VF during the swallow w/ thin by cup) Pharyngeal Stripping Wave: Present - diminished Pharyngoesophageal Segment Opening: Parital distension and partial duration; parital obstruction of flow Tongue Base Retraction: Narrow column of contrast between tongue base & post. pharyngeal wall Pharyngeal Residue: Collection of residue within or on pharyngeal structures Diagnosis/Impression Diagnosis: Mild pharyngeal dysphagia R13.13 Impression: The oral phase appears grossly WNL. The pharyngeal phase is marked by... -Mild pharyngeal residues most notable w/ pudding and cookie due to mildly decreased TB retraction, pharyngeal stripping wave, and UES opening/duration. Liquid wash effectively cleared residues. -Good airway closure during the swallow attributed to good laryngeal elevation. Epiglottic inversion partial on some trials likely due to presence of NG tube in pharynx. -Very trace laryngeal penetration of thin liquids by cup to the vocal folds w/ full ejection. No aspiration observed. Recommendations Diet: Regular Textures (Easy to Chew textures - IDDSI Level 7) and Thin Liquids Comment: Add sauces/gravies to dry textures NG available to supplement nutrition/hydration needs if the patient is unable to meet nutrition/hydration needs by mouth given continued odynophagia (8/10 when not managed by pain medication) Compensatory Strategies: Small Bites, Small Sips (Effortful/hard swallows), Slow Rate, Alternate bites/solids and sips/liquids, Sitting upright and Remain sitting upright for 30 minutes after PO intake Recommend Repeat Modified Barium Swallow: No Need for Skilled Speech Therapy Services: Yes Comment: Due to mild residual pharyngeal deficits, will recommend the patient follow up w/ OP ST for training in oropharyngeal exercise program to promote improved TB retraction, pharyngeal stripping wave, and UES opening/duration. Consider implementation of Lynn, Effortful, and Yawn stretch. Education Completed: 1. Described result of evaluation. Comment: MIGRATORY FARM HAND reviewed results and recommendations of MBSS w/ pt. Education well received. Pt is planning to discuss study w/ BRIQUETTE MOLDER, Jagdeep Valverde. If she is able to resume a full oral diet, she would like NG tube removed as soon as possible. MIGRATORY FARM HAND encouraged further discussion of results of MBSS w/ BRIQUETTE MOLDER. Status Active ST Patient: Active Contact Information [facility] Speech Therapy:: Gisselle Solis M.A. [facility]? Speech-Language Pathologist?? [facility] [address] [place] [address]? [email or web address]?? [phone] 02/18/24 [id number] <Electronically signed by Gisselle Solis M.A., CCC-MIGRATORY FARM HAND> Initialized on 02/22/24 17:19 - END OF NOTE Swallowing Performance Scale Swallowing Performance Scale Swallowing Performance Scale Result: 3 Mild Reference: Neuro-QoL instrument Radiation Oncology Patient Plan Plan Plan: Patient continues to have pain when swallowing. Currently, she is independent with completion of exercises. Re-assess in 2-4 weeks to determine if pain has reduced and skills are appropriate. Recommendations Treatment Warranted: Yes Treatment Warranted: Dysphagia Progress Prognosis: Good Frequency Frequency: 1x/Week Duration: 1 session in 2-4 weeks. Patient/Family Goal Patient/Family Goal: Patient wishes to return to eating like normal. Goals that are Established Determination:: Goals will be added/modified as deemed necessary and appropriate. Therapy will be discontinued when results of re-evaluation indicate therapy is no longer needed or lack of progress has been documented. Goal #1-5 Goal #1: Re-assess if patient's pain level has reduced to determine swallowing difficulties at that time. Education Patient has Indicated that the Following Identified Educational Needs: None The Patient has indicated that they have no educational or learning abilities that may effect their care.: Yes Patient Instruction Patient Education: Diagnosis, Treatment Plan and Home Exercise Program Person Taught: Patient Teaching Method: Discussion Response to teaching: Verbalize Understanding
--- NOTE | 2024-07-18 09:09 | HP.SP.DC ---
ST Discharge Summary Discharged: Discharge: Yelena Caceres is discharged from [facility] as of July 18, 2024. 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 Patient exhibited pain upon swallowing and had further testing. She was treated for 2 sessions in March and was to return after a second opinion from another sewage reticulation drafting officer. She had a modified barium swallow study on 02/17/25 that recommended Regular Textures (Easy to Chew textures - IDDSI Level 7) and Thin Liquids. She resumed this diet at home when she was discharged from the hospital. She was completing her exercises independently and continued to report feeling food stuck 2x per day. GI report stated she was 80% healed but she was unsure why she was continuing to have pain with swallowing. Plan was for her to contact ENT to determine why she was having pain and return to speech therapy. No further contact was completed so patient is discharged. Thank you for allowing me to participate in the care of this patient.
== END 2024-03-25 19:00 | disposition home or self-care (01) ==
LOC: SP 10:00
PROVIDERS: PCP Nurse Practitioner Family; Referring Provider Family Medicine; Visit Provider Family Medicine
DX: R13.12 Dysphagia, oropharyngeal phase (principal)
CPT/HCPCS: 92507; 92526; 92610

== ENCOUNTER → 2024-04-11 | Outpatient (CLI) | payer OTHER, SELFPAY ==
[2024-04-13 13:07] LABS: Anti-Centromere B Ab <0.2 AI (0.0-0.9); Anti-Chromatin <0.2 AI (0.0-0.9); Anti-Jo <0.2 AI (0.0-0.9); Anti-Scleroderma-70 AB <0.2 AI (0.0-0.9); Anti-dsDNA Ab <1 IU/mL (0-9); RNP Ab 0.2 AI (0.0-0.9); SJOGREN'S Anti-SS-A test > 8.0 AI (0.0-0.9); SJOGREN'S Anti-SS-B test < 0.2 AI (0.0-0.9); Smith Ab <0.2 AI (0.0-0.9)
[2024-04-14 19:07] LABS: Angiotensin Convert Enzyme 60 U/L (14-82); C1 EST Inhibitor, Functional >110 (.); C1 Esterase Inhibitor, Quant 37 mg/dL (21-39); Complement C3 197 mg/dL (82-167); Complement CH50 > 60 U/mL (>41); Cytoplasmic Ab (C-ANCA) <1:20 titer (Neg:<1:20); Perinuclear Ab (P-ANCA) <1:20 titer (Neg:<1:20)
== END | disposition home or self-care (01) ==
PROVIDERS: PCP Nurse Practitioner Family; Referring Provider Internal Medicine Gastroenterology; Visit Provider Internal Medicine Gastroenterology
DX: T78.3XXA Angioneurotic edema, initial encounter (principal); I77.6 Arteritis, unspecified
CPT/HCPCS: 36415; 82164; 86037; 86160; 86161; 86162; 86225; 86235

== ENCOUNTER → 2024-05-16 | Outpatient (CLI) | payer OTHER, SELFPAY ==
--- NOTE | 2024-05-16 07:42 | AAVD_ITS ---
Reason For Study Reason For Study: s/p Rt Iliac Stent Inferior Vena Cava Proximal inferior vena cava measures 0.75cm x 2.25 cm. in the cross-sectional axis. Proximal inferior vena cava measures 0.88 cm. in the longitudinal axis. Mid inferior vena cava measures 1.60 cm x 1.64 cm. in the cross-sectional axis. Mid inferior vena cava measures 0.82 cm. in the longitudinal axis. Distal inferior vena cava measures 1.66cm x 2.39 cm. in the cross-sectional axis. Distal inferior vena cava measures 1.86 cm. in the longitudinal axis. The inferior vena cava has spontaneous, phasic flow throughout. Left Common Iliac Vein Left common iliac vein measures 1.47cm x 2.46 cm. in the cross-sectional axis. Left common iliac vein measures 1.25 cm. in the longitudinal axis. The left common iliac vein has spontaneous, phasic flow throughout. Right Common Iliac Vein Right common iliac vein measures 1.78cm x 1.42 cm. in the cross-sectional axis. Right common iliac vein measures 1.55 cm. in the longitudinal axis. The right common iliac vein has spontaneous, phasic flow throughout. Procedure Aorta IVC Iliac vasculature or bypass grafts [id number]. Exam performed in department. VL/Abd Aortic/IVC Duplex scan Interpretation Summary Inferior vena cava and left iliac vein patent with normal venous flow pattern. Right iliac vein stent patent with normal venous flow pattern. Ordering Physician: Elizabeth Melendez Referring Physician: Andreas Calvert Performed By: Trisha Eubanks, ALPHONSO, RVT
== END | disposition home or self-care (01) ==
LOC: CVS 07:42
PROVIDERS: PCP Nurse Practitioner Family; Referring Provider Physician Assistant; Visit Provider Physician Assistant
DX: I87.1 Compression of vein (principal); Z48.812 Encounter for surgical aftercare following surgery on the circulatory system
CPT/HCPCS: 93978

== ENCOUNTER → 2024-05-17 | Outpatient (CLI) | payer OTHER, SELFPAY ==
--- NOTE | 2024-05-17 17:53 | CT_ITS ---
PROCEDURE: CHEST WITHOUT CONTRAST 05/17/2024 REASON FOR EXAM: FU LUNG NODULE TECHNIQUE: CT chest was performed without IV contrast. Multiplanar reformats were generated. One or more dose reduction techniques were used (e.g., Automated exposure control, adjustment of the mA and/or kV according to patient size, use of iterative reconstruction technique COMPARISON: 03/04/2023 and 08/27/2022 RADIATION DOSE SUMMARY: CTDlvol: 20.15 mGy DLP: 730.04 mGycm FINDINGS: Note that evaluation of the vasculature, sean, and soft tissues is limited in the absence of IV contrast. Heart/pericardium: Unremarkable. Aorta: Two-vessel arch, normal variant. Pulmonary arteries: Normal in caliber. Lymph nodes: Chronic granulomatous disease. Similar partially calcified subcarinal node, 14 mm short axis. Similar anterior mediastinal nodularity since 08/07/2022. Lungs/pleura: Minimal atelectasis/scarring. Similar small fissural likely intrapulmonary lymph node along the minor fissure (series 4, image 64). Similar irregular partially calcified nodule abutting the RIGHT hemidiaphragm in the RIGHT middle lobe since the earliest exam of 08/27/2022 when measured similarly, roughly 11 x 9 mm (series 4 image 76). Previous RIGHT lower lobe 3 mm nodule abutting the diaphragm is not visualized. Airways: Unremarkable. Chest wall: Unremarkable. Upper abdomen: Sleeve gastrectomy. Cholecystectomy. Tiny splenic granulomas.. Musculoskeletal: Multilevel spondylosis. Possible early diffuse idiopathic skeletal hyperostosis. Mild thoracolumbar dextroscoliosis may be positional. CT/Chest without Contrast IMPRESSION: 1. No new or enlarging pulmonary nodule identified. Similar 10 mm average axia l diameter RIGHT lower lobe nodule abutting the diaphragm is partially calcified and may reflect a calcifying granuloma. Jane nued follow-up to complete 2 years of surveillance recommended. 2. Mild mediastinal lymphadenopathy, nonspecific and potentially reactive or re lated to chronic granulomatous disease. This is also similar to prior. Attention on above recommended follow-up. 3. Unusual nonspecific but similar anterior mediastinal nodularity compared wit h the earliest exam of 08/07/2022. Attention on follow-up. 4. Additional description as above. Reading Location: [id number]
== END | disposition home or self-care (01) ==
LOC: CT 17:49
PROVIDERS: PCP Nurse Practitioner Family; Referring Provider Internal Medicine; Visit Provider Internal Medicine
DX: R91.1 Solitary pulmonary nodule (principal); R91.8 Other nonspecific abnormal finding of lung field
CPT/HCPCS: 71250

== ENCOUNTER → 2024-06-21 | Outpatient (CLI) | payer OTHER, SELFPAY ==
--- NOTE | 2024-06-21 16:50 | RAD_ITS ---
PROCEDURE: LUMBAR SPINE 2 OR 3 VIEWS 06/21/2024 REASON FOR EXAM: PAIN TECHNIQUE: 2 view(s) of the lumbar spine FINDINGS: Vertebrae: Unremarkable. Discs: Disc space heights are preserved. Alignment: No subluxation. Other: Facet hypertrophy consistent with degenerative disc disease. RAD/Lumbar Spine 2 or 3 Views IMPRESSION: MILD DEGENERATIVE CHANGES OF THE LUMBAR SPINE. Reading Location: [id number]
--- NOTE | 2024-06-21 16:50 | RAD_ITS ---
PROCEDURE: THORACIC SPINE 2 VIEWS 06/21/2024 REASON FOR EXAM: PAIN TECHNIQUE: One (1) view of the thoracic spine. FINDINGS: Vertebrae: No acute fracture. Disc spaces: Mild joint space narrowing. Alignment: Normal alignment. soft tissues: Unremarkable. Other: RAD/Thoracic Spine 2 Views IMPRESSION: MILD DEGENERATIVE DISC DISEASE. Reading Location: [id number]
--- NOTE | 2024-06-21 16:50 | RAD_ITS ---
PROCEDURE: CERV SPINE 2 OR 3 VIEWS N/A REASON FOR EXAM: PAIN TECHNIQUE: 3 views of the cervical spine. FINDINGS: Vertebrae: Unremarkable. disc spaces: Unremarkable. Alignment: Normal soft tissues: Unremarkable. Other: RAD/Cerv Spine 2 or 3 Views IMPRESSION: NEGATIVE CERVICAL SPINE. Disclaimer: Reading Location: [id number]
== END | disposition home or self-care (01) ==
LOC: MTRAD 16:50
PROVIDERS: PCP Nurse Practitioner Family; Referring Provider Physician Assistant; Visit Provider Physician Assistant
DX: R52 Pain, unspecified (principal)
CPT/HCPCS: 72040; 72070; 72100

== ENCOUNTER 2024-06-27 13:59 | Emergency (ER) | payer OTHER, SELFPAY ==
[2024-06-27 14:00] VITALS: BP 165/92; PULSE 106; RESP 16; TEMP 36.6; O2SAT 97; BMI 45.1
--- NOTE | 2024-06-27 16:19 | EDS_ITS ---
<Statement entered by Alex Perales DO - 06/27/24 20:37> Patient was seen and examined with physician contract assistant Mona All components of the history and physical confirmed and agreed. History of present illness and physical exam: Patient is a 49-year-old female with a past medical history of hypertension, hyperlipidemia, seizures, CHRISTIANA, anxiety who presented to the emergency department with a chief complaint of having multiple complaints. States that she has felt shaky overall for the last few days and on Thursday she had an episode of lightheadedness. She states that she had been on prednisone since late last week due to flare of her back pain. She reports urinary frequency as well and had 1 episode of vomiting prior to arrival states that she slightly feels n auseous still. Patient notes that she has a dull headache that started earlier today and progressively worsened in nature. Patient denies any trauma or injuries. Review of systems: Agree above Physical exam: Agree with above will add on to neuroexam that she completed finger-nose testing bilaterally without any difficulty sensation grossly intact. MDM: Patient is a 49-year-old female who presented to the emergency department with multiple vague complaints. On the differential diagnose includes but not limited to UTI, electrolyte abnormality, upper respiratory infection secondary to viral etiology. Patient CBC was reviewed and showed no evidence leukocytosis white blood count normal 11.7, hemoglobin 11.4, plate count was 334. Patient's sodium normal 139, potassium was 3.4, creatinine was 0.86. Patient urinalysis reviewed and showed no evidence of infection. Patient ambulated well here in the emergency department. Patient was recommended to take Claritin and Zyrtec for her tympanic membrane effusions however they do not appear to be infected this is likely secondary to allergies. She was advised to follow-up with her primary care physician in the outpatient setting return for worsening symptoms or concerns. She is agreeable to plan all question concerns answered she was discharged home in stable condition. Final impression: Generalized weakness Disposition: Patient will be discharged home in stable condition Supervising attending attestation: Alex Perales D.O. [facility] History of Present Illness Chief Complaint: General Illness Narrative Narrative: Patient presenting today with multiple vague complaints. She reports that she has felt shaky over the last few days and on Thursday had an episode of lightheadedness. She has been on prednisone since late last week due to a flare of her back pain. She reports urinary frequency and had 1 episode of vomiting prior to arrival, she reports she still feels slightly nauseous. She reports left-sided ear pain that started over the weekend. She reports a frontal headache that started earlier today, she reports that the pain has been gradual in onset, she has a history of headaches and has had similar headaches in the past. She denies any fevers, chills, abdominal pain, chest pain, shortness of breath. [facility] Medical History Lumbar strain Thoracic myofascial strain Cervical myofascial strain Lung nodules Preventative health care Colon cancer screening UTI (urinary tract infection) CHRISTIANA (obstructive sleep apnea) Chronic fatigue Lung nodule seen on imaging study Family history of early CAD Generalized anxiety disorder Hyperlipidemia Hypertension Arthritis Anemia Migraine headache Seizures Non-smoker CPAP (continuous positive airway pressure) dependence Sleep apnea Leg cramps History of pain when walking History of edema Abnormal uterine bleeding Tiredness Weight loss Back pain Neck pain Varicose veins of both lower extremities Hair loss disorder Chronic back pain Obesity Vitamin B12 deficiency Home Medications ?Medication ?Instructions ?Recorded ?Last Taken ?Type syringe with needle, safety 3 mL #100 ea 03/18/23 Unkn own Rx 25 gauge x 1 (Easy Touch SheathLock Syringe with Needle) cyanocobalamin (vitamin B-12) 1,000 mcg subcut QMONTH gastric 12/02/23 04/20/24 History 1,000 mcg/mL injection solution sleeve epinephrine 0.1 mg/0.1 mL 0.1 ml subcut X1 #2 ea 02/09 Unknown Rx injection, auto-injector ondansetron 4 mg disintegrating 4 mg PO Q8H PRN PRN Na usea #10 tabs 02/20/24 Unknown Rx tablet prednisone 20 mg tablet 20 mg PO QDAY #90 tabs 04/07 Unknown Rx clopidogrel 75 mg tablet (Plavix) 75 mg PO DAILY #90 t abs 06/10/24 06/26/24 Rx cyclobenzaprine 10 mg tablet 10 mg PO HS PRN muscle sp asm #14 06/21/24 06/26/24 Rx tabs prednisone 10 mg tablet 10 mg PO DAILY #30 tabs 06/0106/26/24 Rx estradiol 0.01% (0.1 mg/gram) vaginal 06/27/24 Unknown History vaginal cream Allergy/AdvReac Type Severity Reaction Status Date / Time nut - unspecified (nuts) Allergy Severe Angioedema Verified 06/27/24 14:03 ibuprofen (From Motrin) AdvReac Intermediate Shortness Verified 06/27/24 14:03 of breath Family History Father Diabetes Heart disease Lung cancer smoker- agent orange Arthritis Cancer Mother High cholesterol Surgical History Hx of hysterectomy Hx of surgical procedure Status post hysterectomy (~10/17/21) Hx laparoscopic cholecystectomy Hx of bilateral cataract extraction History of carpal tunnel surgery of left wrist History of endometrial ablation History of gastric stapling History of History of tonsillectomy History of tubal ligation Social History Smoking Status: Never smoker alcohol intake: never substance use type: does not use caffeine: Yes what type of physical activity do you participate in: none seatbelt use: always do you feel safe at home: Yes additional social history: Thwapr in surprise patient works at [employer] evs ROS ROS ED Constitutional Constitutional ED: Denies chills or fever(s) Cardiovascular Cardiovascular: Denies chest pain Respiratory/Chest Respiratory/Chest: Denies dyspnea Gastrointestinal Gastrointestinal: Reports nausea and vomiting; Denies abdominal pain Genitourinary Genitourinary ED: Reports urinary frequency; Denies dysuria or hematuria Musculoskeletal Musculoskeletal: Denies arthralgias or myalgias Integumentary Denies rash Neurologic Neurologic: Reports headache(s); Denies weakness EXAM Physical Exam Const Vital Signs: 06/27/24 14:00 06/27/24 16:16 06/27/24 16:38 Temperature 97.9 F Temperature Source Oral Pulse Rate 106 H 100 Respiratory Rate 16 18 Respiratory Effort Normal Non-Labored Respiratory Pattern Normal Blood Pressure 165/92 H 138/79 H Blood Pressure Mean 116 98 Pulse Ox 97 99 Oxygen Delivery Method Room Air Room Air 06/27/24 18:06 06/27/24 18:59 Temperature 98.4 F Temperature Source Pulse Rate 83 89 Respiratory Rate 16 18 Respiratory Effort Respiratory Pattern Blood Pressure 124/73 H 138/74 H Blood Pressure Mean 90 95 Pulse Ox 97 97 Oxygen Delivery Method Room Air Positive well nourished, well developed and no apparent distress General Appearance ED: well developed HEENT Reports normocephalic and head/scalp atraumatic HEENT Narrative: Bilateral TMs with effusions, no bulging or erythema to the bilateral TMs, bilateral EACs are clear. No mastoid tenderness bilaterally. Mouth ED: Yes moist mucous membranes normal Eyes PERRL and EOMs intact bilaterally Neck full ROM and supple Chest Wall inspection of chest normal Resp normal respiratory effort and clear to auscultation bilaterally Cardio regular rate and regular rhythm GI soft to palpation, non-tender, non-distended and no masses Back/Spine normal ROM and normal to inspection Extremity normal to inspection and full ROM Neuro oriented x3, CN's II-XII intact bilaterally, moves all extremities, no focal motor deficits and no sensory deficits noted Sensorium / Orientation: awake and alert Psych mental status grossly normal and thought process normal Skin no rashes or lesions noted and no wounds MDM MDM MDM Narrative Medical decision making narrative: Patient presenting today with multiple vague complaints. She has left-sided ear pain, she has effusions to the bilateral TMs without bulging or erythema, no signs of mastoiditis. She had an episode of vomiting prior to arrival, her abdomen is soft and nontender. She reports urinary frequency, UA will be obtained to assess for UTI. Additionally she has a headache, no meningeal signs, low suspicion for SAH, she has had headaches in the past. I do not feel head imaging is indicated at this time. She will be given IV fluids, Zofran, and Toradol. She has an ibuprofen allergy reports that she has tolerated Toradol in the past. Labs obtained, her CBC shows a mild leukocytosis at 11.7, BMP unremarkable, UA will be cultured. I recommended she begin taking Claritin or Zyrtec for her TM effusions, I do not feel antibiotics are indicated at this time. On reexamination she is doing well, she ambulated without difficulty, her vitals have remained stable.Patient discharged home in stable condition. Lab Data Attestation: I reviewed the patient's lab results. Labs: Laboratory Results - last 24 hr 06/27/24 06/27/24 16:30 16:47 WBC 11.7 H RBC 4.33 Hgb 11.4 L Hct 34.9 L MCV 80.6 L MCH 26.3 L MCHC 32.7 RDW Std Deviation 40.2 RDW Coeff of Aretha 13.7 Plt Count 334 MPV 9.1 Immature Gran % (Auto) 0.400 Neut % (Auto) 63.1 Lymph % (Auto) 29.5 [place] % (Auto) 6.1 Eos % (Auto) 0.5 Baso % (Auto) 0.4 Absolute Neuts (auto) 7.4 Absolute Lymphs (auto) 3.46 Nucleated RBC % 0 Sodium 139 Potassium 3.4 Chloride 105 Carbon Dioxide 22.6 Anion Gap 12 BUN 16 Creatinine 0.86 Estim Creat Clear Calc 106.46 Est GFR (MDRD) Non-Af 84 BUN/Creatinine Ratio 18.0 Glucose 84 Calcium 9.8 Urine Color Straw Urine Clarity Clear Urine pH 6.0 Ur Specific [place] 1.015 Urine Protein 15 H Urine Glucose (UA) Normal Urine Ketones Negative Urine Occult Blood Negative Urine Nitrite Negative Urine Bilirubin Negative Urine Urobilinogen Normal Ur Leukocyte Esterase 100 H Urine RBC 0 SEEN Urine WBC 5-10 SEEN Ur Squamous Epith Cells 0-5 SEEN Urine Bacteria 1+ Urine Mucus 0 SEEN Discharge Plan Triage Chief Complaint: General Illness ED Midlevel Provider: Dinora Weiss ED Provider: Alex Perales Dx/Rx/DC Orders Clinical Impression: Weakness, Urinary frequency, Vomiting Instructions: ED Vomiting (Adult) Prescriptions: No Action prednisone 20 mg tablet 20 mg PO QDAY Qty: 90 0RF clopidogrel [Plavix] 75 mg tablet 75 mg PO DAILY Qty: 90 3RF cyclobenzaprine 10 mg tablet 10 mg PO HS PRN (Reason: muscle spasm) Qty: 14 0RF prednisone 10 mg tablet 10 mg PO DAILY Qty: 30 0RF Rx Instructions: 4 tablets daily x3 days, then 3 tablets daily x3 days, then 2 tablets daily x3 days, then 1 tablet daily x3 days cyanocobalamin (vitamin B-12) 1,000 mcg/mL solution 1,000 mcg subcut QMONTH Rx Instructions: INJECT 1000 MCG (1ML) INTRAMUSCULARLY ONCE A MONTH epinephrine 0.1 mg/0.1 mL auto-injector 0.1 ml subcut X1 Qty: 2 0RF ondansetron 4 mg tablet,disintegrating 4 mg PO Q8H PRN PRN (Reason: Nausea) Qty: 10 0RF estradiol 0.01 % (0.1 mg/gram) cream vaginal Patient Comments: PT HAS NOT STARTED (DME) Easy Touch SheathLock Syrg-Ndl 3 mL 25 gauge x 1 syringe See Rx Instructions .Route Qty: 100 1RF Rx Instructions: As directed for B-12 injections Primary Care Provider: Andreas Calvert Referrals: Andreas Calvert, [employer]ER-[facility] [Primary Care Provider] - 5-7 Days Activity Restrictions/Additional Instructions: Follow-up with your PCP and return for any other concerns. Print Language: Guatemalan Disposition Disposition: Home, Self Care Discharge Date/Time: 06/27/24 19:00
[2024-06-27 16:38] VITALS: BP 138/79; PULSE 100; RESP 18; O2SAT 99
[2024-06-27 16:42] LABS: Mucous, Urine 0 SEEN /hpf (<or=2+); Red Blood Cells-Urine 0 SEEN /hpf (0-5)
[2024-06-27] MEDS: 0.9% Normal Saline (1000mL) 1,000 ML 999 ML IV (16:51)
[2024-06-27] MEDS: Ondansetron 4 MG/2 ML Vial IV (16:51)
[2024-06-27 17:04] LABS: Absolute Lymphocyte Count 3.46 X10^3/uL (0.83-4.51); Absolute Neutrophil Count 7.4 X10^3/uL (2.0-7.7); Basophil# 0.05 X10^3/uL; Basophil% 0.4 % (0-1); Eosinophil# 0.06 X10^3/uL; Eosinophils% 0.5 % (0-5); Hematocrit 34.9 % (37-47); Hemoglobin 11.4 g/dL (12.0-15.0); Lymphocyte # 3.46 X10^3/ul (0.83-4.51); Lymphocyte % 29.5 % (19-41); Mean Corp Hgb Conc 32.7 g/dL (32-36); Mean Corpuscular Hgb 26.3 pg (27.0-32.0); Mean Corpuscular Volume 80.6 fL (81-99); Mean Platelet Vol. 9.1 fl (6.2-12.0); Monocyte# 0.71 X10^3/uL; Monocyte% 6.1 % (0-10); NRBC Flagged by Analyzer 0 % (0-5); Neutrophil # 7.39 X10^3/uL (2.7-7.7); Neutrophil % 63.1 % (47-70); Platelet Count 334 K/mm3 (150-450); RBC Distribution Width CV 13.7 % (11.6-14.6); RBC Distribution Width SD 40.2 fl (35.1-43.9); Red Blood Count 4.33 M/mm3 (4.2-5.4); White Blood Count 11.7 K/mm3 (4.4-11.0)
[2024-06-27 17:14] LABS: Color, Urine Straw (Yellow); Glucose, Dipstick Normal (Normal); Ketone-Dipstick Negative (Negative); Leukocyte Esterase-Dipstick 100 /ul (Negative); Nitrite-Dipstick Negative (Negative); Occult Blood-Urine Negative /ul (Negative); Protein-Dipstick 15 mg/dl (Negative); Specific Gravity, Urine 1.015 (1.002-1.030); Urine Bilirubin Dipstick Negative (Negative); Urine Clarity Clear (Clear); Urine Urobilinogen Normal (Normal)
[2024-06-27 17:20] LABS: Anion Gap 12 (5-15); BUN 16 mg/dL (4-19); Calcium,Total 9.8 mg/dL (7.6-11.0); Carbon Dioxide 22.6 mmol/L (21.0-32.0); Chloride 105 mmol/L (98-108); Creatinine, Serum 0.86 mg/dL (0.70-1.20); EST Glomerular Filtration Rate 84 (>60); Estimated Creatinine Clearance 106.46 ml/min (50-250); Glucose 84 mg/dL (70-99); Potassium 3.4 mmol/L (3.3-5.1); Sodium Level 139 mmol/L (133-145)
[2024-06-27 18:06] VITALS: BP 124/73; PULSE 83; RESP 16; O2SAT 97
[2024-06-27 18:28] VITALS: O2SAT 98
[2024-06-27] MEDS: Ketorolac 15 MG/ML Vial IV (18:48)
[2024-06-27 18:52] LABS: Bacteria 1+ /hpf (None Seen)
[2024-06-27 18:53] LABS: Squamous Epithelial Cells - UA 0-5 SEEN /hpf (5-10); White Blood Cells 5-10 SEEN /hpf (0-5)
[2024-06-27 18:59] VITALS: BP 138/74; PULSE 89; RESP 18; TEMP 36.9; O2SAT 97
== END 2024-06-27 19:00 | disposition home or self-care (01) ==
PROVIDERS: Physician Assistant; Emergency Provider Emergency Medicine; PCP Nurse Practitioner Family; Visit Provider Emergency Medicine
DX: R53.1 Weakness (principal); Z90.710 Acquired absence of both cervix and uterus; I10 Essential (primary) hypertension; E78.5 Hyperlipidemia, unspecified; R11.10 Vomiting, unspecified; R35.0 Frequency of micturition; G47.33 Obstructive sleep apnea (adult) (pediatric); Z99.89 Dependence on other enabling machines and devices; Z90.49 Acquired absence of other specified parts of digestive tract; Z98.41 Cataract extraction status, right eye; Z98.42 Cataract extraction status, left eye; Z98.51 Tubal ligation status
CPT/HCPCS: 80048; 81001; 85025; 96361; 96374; 96375; 99283; J2405

== ENCOUNTER 2024-06-29 06:44 | Day surgery (SDC) | payer OTHER, SELFPAY ==
[2024-06-28 08:09] VITALS: BMI 44.9
[2024-06-29 06:58] LABS: Hematocrit 35.5 % (37-47); Hemoglobin 11.5 g/dL (12.0-15.0); Mean Corp Hgb Conc 32.4 g/dL (32-36); Mean Corpuscular Hgb 26.1 pg (27.0-32.0); Mean Corpuscular Volume 80.5 fL (81-99); Mean Platelet Vol. 9.1 fl (6.2-12.0); Platelet Count 323 K/mm3 (150-450); RBC Distribution Width CV 13.8 % (11.6-14.6); Red Blood Count 4.41 M/mm3 (4.2-5.4); White Blood Count 10.2 K/mm3 (4.4-11.0)
[2024-06-29 07:23] LABS: Anion Gap 10 (5-15); BUN 15 mg/dL (4-19); BUN/Creat Ratio 24.3 RATIO (10-20); Calcium,Total 9.7 mg/dL (7.6-11.0); Carbon Dioxide 22.6 mmol/L (21.0-32.0); Chloride 106 mmol/L (98-108); Creatinine, Serum 0.61 mg/dL (0.70-1.20); EST Glomerular Filtration Rate 111 (>60); Estimated Creatinine Clearance 149.73 ml/min (50-250); Glucose 84 mg/dL (70-99); Potassium 3.9 mmol/L (3.3-5.1); Sodium Level 138 mmol/L (133-145)
--- NOTE | 2024-06-29 14:41 | PCM.OPRPT ---
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 Post-Operative Diagnosis: Same, patent stent with no evidence of in-stent stenosis or thrombosis Surgery/Procedure Performed: Venogram inferior vena cava Intravascular ultrasound of the inferior vena cava, right common iliac vein, right external iliac vein recruiting scheduler: No Type of Anesthesia: Local and Sedation,Conscious Procedure Start Time: 08:05 Procedure Stop Time: 08:15 Select all DRAINS/GRAFTS/IMPLANTS that apply: None Estimated Blood Loss: 2 Specimen collected: No Description of surgery: HPI: Patient is a 49-year-old female with venous insufficiency and painful varicose veins who previously underwent a right common iliac vein stent placement approximately 1 year prior for greater than 50% compression. She initially has had symptom relief however she has had intermittent return of the right lower extremity pain and heaviness. She is also missed some of her dual antiplatelet doses so she presents now for venogram to assess for any evidence of compromise of the stent in an effort to treat prior to for stent failure. Description of procedure: Upon obtaining informed consent and verification correct patient procedure patient was taken the Group Product Manager where she was positioned prepped and draped in usual sterile fashion. Time was performed consultation ministered with Versed and fentanyl. Skin overlying the right common femoral vein was anesthetized with 1% lidocaine and the vessel accessed with a micropuncture needle wire under ultrasound guidance. This then exchanged for micropuncture sheath through which hand-injection ilio caval venogram was performed which revealed satisfactory positioning and no extravasation or dissection. This also revealed widely patent stent with brisk contrast transit and no significant pelvic collateral visualization. There also did not appear to be any in-stent stenosis evident on the venography. Bentson wire was then advanced and the micropuncture sheath exchanged for a short 8 Burkinan sheath. Through the 8 Burkinan sheath an intravascular ultrasound probe was advanced and recorded pullback performed of the IVC, right common iliac vein, right external iliac vein. This revealed patent stent with no in-stent stenosis, no significant evidence of intimal hyperplasia or mural thrombus formation, no compression, and good stent wall apposition. No lesions that required intervention were identified so the catheter, wire, and sheath were withdrawn a minute pressure held for 5 minutes until hemostasis was obtained. The patient was then taken the recovery area for bedrest prior to discharge to home. Surgical Findings: See above Complications Complications: No
== END 2024-06-29 10:30 | disposition home or self-care (01) ==
PROVIDERS: PCP Nurse Practitioner Family; Referring Provider Surgery Trauma Surgery; Visit Provider Surgery Trauma Surgery
DX: I87.1 Compression of vein (principal); Z79.02 Long term (current) use of antithrombotics/antiplatelets; Z79.82 Long term (current) use of aspirin
CPT/HCPCS: 36010; 36415; 37252; 37253; 75825; 76937; 80048; 85027; 99152; C1753; C1769; C1894; Q9967

== ENCOUNTER 2024-12-26 03:51 | Emergency (ER) | payer OTHER, SELFPAY ==
[2024-12-26 03:52] VITALS: BP 129/78; PULSE 79; RESP 16; TEMP 36.7; O2SAT 97; BMI 49.1
--- NOTE | 2024-12-26 04:24 | RAD_ITS ---
PROCEDURE: RAD/Thoracic Spine 3 Views
--- NOTE | 2024-12-26 04:30 | RAD_ITS ---
PROCEDURE: RAD/Chest PA and Lateral
--- NOTE | 2024-12-26 04:48 | ED.VIS.BACK ---
HPI History of Present Illness Chief Complaint: Back Informant: patient Narrative Narrative: Patient is a 49-year-old female with history of intermittent thoracic back pain, CHRISTIANA, anxiety, hypertension and hyperlipidemia presenting with worsening thoracic back pain. Describes it more as a burning sensation. States she cannot get comfortable. Is unable to sleep much for the past 2 days because of the pain. States that this back pain will flareup from time to time and normally muscle relaxers will help it calm down. Is not helping this time. She went to urgent care yesterday was prescribed Flexeril as well as a Medrol Dosepak. States she cannot sleep because of the pain. She has the pain initially started Thursday morning, 2 days ago after waking up. The pain is in her bilateral shoulder blade area and radiates down her thoracic back and up into her neck sometimes. Denies any numbness or tingling. Denies any weakness. Denies any urinary or bowel symptoms. States because of the pain she does not been able to eat or drink much. Pain is constant. Does not try anything at home because nothing works. [facility] Medical History Lumbar strain Thoracic myofascial strain Cervical myofascial strain Lung nodules Preventative health care Colon cancer screening UTI (urinary tract infection) CHRISTIANA (obstructive sleep apnea) Chronic fatigue Lung nodule seen on imaging study Family history of early CAD Generalized anxiety disorder Hyperlipidemia Hypertension Arthritis Anemia Migraine headache Seizures Non-smoker CPAP (continuous positive airway pressure) dependence Sleep apnea Leg cramps History of pain when walking History of edema Abnormal uterine bleeding Tiredness Weight loss Back pain Neck pain Varicose veins of both lower extremities Hair loss disorder Chronic back pain Obesity Vitamin B12 deficiency Home Medications ?Medication ?Instructions ?Recorded ?Last Taken ?Type syringe with needle, safety 3 mL #100 ea 03/18/23 Unknown Rx 25 gauge x 1 (Easy Touch SheathLock Syringe with Needle) cyanocobalamin (vitamin B-12) 1,000 mcg subcut QMONTH gastric 12/02/23 04/20/24 History 1,000 mcg/mL injection solution sleeve epinephrine 0.1 mg/0.1 mL 0.1 ml subcut X1 #2 ea 02/10/24 Unknown Rx injection, auto-injector ondansetron 4 mg disintegrating 4 mg PO Q8H PRN PRN Nausea #10 tabs 02/20/24 Unknown Rx tablet clopidogrel 75 mg tablet (Plavix) 75 mg PO DAILY #90 tabs 06/10/24 06/29/24 Rx cyclobenzaprine 10 mg tablet 10 mg PO HS PRN muscle spasm #14 06/21/24 06/26/24 Rx tabs estradiol 0.01% (0.1 mg/gram) vaginal 06/27/24 Unknown History vaginal cream prednisone 20 mg tablet 20 mg PO QDAY PRN 07/20/24 Unknown History hydrocodone-acetaminophen 5-325mg 1 tab PO Q8H PRN Pain 3 days #10 12/26/24 Unknown Rx 5mg-325mg TABLETS Allergy/AdvReac Type Severity Reaction Status Date / Time nut - unspecified (nuts) Allergy Severe Angioedema Verified 12/26/24 03:52 ibuprofen (From Motrin) AdvReac Intermediate Shortness Verified 12/26/24 03:52 of breath Family History Father Diabetes Heart disease Lung cancer smoker- agent orange Arthritis Cancer Mother High cholesterol Surgical History H/O midurethral sling procedure History of placement of ear tubes S/P adenoidectomy History of cholecystectomy Hx of hysterectomy Hx of surgical procedure Status post hysterectomy (~10/17/21) Hx laparoscopic cholecystectomy Hx of bilateral cataract extraction History of carpal tunnel surgery of left wrist History of endometrial ablation History of gastric stapling History of History of tonsillectomy History of tubal ligation Social History Smoking Status: Never smoker alcohol intake: never substance use type: does not use caffeine: Yes what type of physical activity do you participate in: none seatbelt use: always do you feel safe at home: Yes additional social history: [employer] in [place] patient works at [employer] ROS ROS ED Constitutional Constitutional ED: Denies chills or fever(s) Cardiovascular Cardiovascular: Denies chest pain Respiratory/Chest Respiratory/Chest: Denies dyspnea or dyspnea on exertion Gastrointestinal Gastrointestinal: Denies abdominal pain, diarrhea, nausea or vomiting Genitourinary Genitourinary ED: Denies dysuria Musculoskeletal Musculoskeletal: Reports back pain and neck pain Integumentary Denies rash Neurologic Neurologic: Denies paresthesias or weakness Hematologic/Lymphatic Hematologic/Lymphatic: Denies easy bleeding or easy bruising EXAM Physical Exam Const Vital Signs: 12/26/24 03:52 12/26/24 06:14 Temperature 98.1 F 98 F Temperature Source Oral Pulse Rate 79 64 Respiratory Rate 16 18 Blood Pressure 129/78 H 107/73 Blood Pressure Mean 95 84 Pulse Ox 97 100 Oxygen Delivery Method Room Air Positive well nourished and well developed General Appearance ED: well developed and NAD HEENT Reports moist mucous membranes Neck supple and no JVD Resp normal respiratory effort and clear to auscultation bilaterally Cardio regular rate and regular rhythm GI normal to inspection, nondistended, normoactive bowel sounds and soft to palpation Back/Spine Back/Spine Narrative: No cervical tenderness. No midline thoracic tenderness. Bilateral trapezius muscle and bilateral thoracic paraspinal tenderness to palpation. Decreased range of motion of thoracic back secondary to pain. Extremity normal to inspection General Extremety ED: Negative for edema General Extremity: Negative for edema Neuro oriented x3 Neuro Narrative: Normal gait. Sensorium / Orientation: alert Motor Exam: strength 5/5 throughout Psych mental status grossly normal Skin no rashes or lesions noted and no wounds MDM MDM MDM Narrative Medical decision making narrative: Patient presents for worsening thoracic back pain. Has episodes of bilateral thoracic back pain like this but usually not as severe and generally is relieved by muscle relaxers. Did drive here but is comfortable with receiving sedating medications and her daughter could pick her up. Pain appears to be more muscle skeletal. She does not any midline tenderness however she reports history of some back issues but she is not clear about the type. Given that is in the thoracic region will obtain chest x-ray to look for any abnormalities of the aortic size and heart as well as pneumothorax. Also obtain thoracic x-rays to look for any acute fracture or other cause of her pain. Do not think she requires emergent MRI as she has a normal neurologic exam with no focal deficits. Patient given IV Toradol and morphine with improvement of pain. Is been given [place]. X-ray of the thoracic and chest x-ray did not show any acute process. No acute infiltrate. Does have some mild atelectasis changes but suspect she is not taking deep breaths because of her pain. Does have degenerative changes to her back. Will be discharged home with a course of [place] referral for spinal surgery with Dr. Perez. Patient is comfortable this plan of care. Hemodynamically stable in the emergency room. Discharged home in stable and improved condition. Radiography Diagnostic Testing: Clinical Impression(s) from Imaging Studies Thoracic Spine X-Ray 12/26/24 04:24 IMPRESSION: No evidence for acute abnormality. Reading Location: [place] [id number] Chest X-Ray 12/26/24 04:30 IMPRESSION: Interval appearance of mild bilateral basilar atelectatic pulmonary changes. Reading Location: [place] [address] Discharge Plan Triage Chief Complaint: Back ED Provider: Bety Briggs Dx/Rx/DC Orders Clinical Impression: Acute bilateral thoracic back pain Instructions: ED Back Pain (Acute or Chronic), ED Back Sprain/Strain Prescriptions: New hydrocodone-acetaminophen 5-325 mg tablet 1 tab PO Q8H PRN (Reason: Pain) 3 Days Qty: 10 0RF No Action clopidogrel [Plavix] 75 mg tablet 75 mg PO DAILY Qty: 90 3RF cyclobenzaprine 10 mg tablet 10 mg PO HS PRN (Reason: muscle spasm) Qty: 14 0RF cyanocobalamin (vitamin B-12) 1,000 mcg/mL solution 1,000 mcg subcut QMONTH Rx Instructions: INJECT 1000 MCG (1ML) INTRAMUSCULARLY ONCE A MONTH epinephrine 0.1 mg/0.1 mL auto-injector 0.1 ml subcut X1 Qty: 2 0RF ondansetron 4 mg tablet,disintegrating 4 mg PO Q8H PRN PRN (Reason: Nausea) Qty: 10 0RF estradiol 0.01 % (0.1 mg/gram) cream vaginal Patient Comments: PT HAS NOT STARTED (DME) Easy Touch SheathLock Syrg-Ndl 3 mL 25 gauge x 1 syringe See Rx Instructions .Route Qty: 100 1RF Rx Instructions: As directed for B-12 injections Primary Care Provider: Andreas Calvert Referrals: Fernando Bryant MD [Med Staff - Active Staff, Orthopedics] Andreas Calvert, APPLICATION INTEGRATOR-C [Primary Care Provider, Family Practice] Activity Restrictions/Additional Instructions: Continue to use heat to your back as well as topical agents. You do have some degenerative changes to your thoracic spine and I do recommend follow-up either with family medicine or spinal surgery for further evaluation of this. You have been given information for these physicians. Print Language: Setswana Disposition Disposition: Home, Self Care Discharge Date/Time: 12/26/24 06:15
[2024-12-26] MEDS: HYDROcodone Bitartrate/Apap 5/325 Tablet PO (06:09)
[2024-12-26 06:14] VITALS: BP 107/73; PULSE 64; RESP 18; TEMP 36.6; O2SAT 100
== END 2024-12-26 06:15 | disposition home or self-care (01) ==
PROVIDERS: Emergency Provider Emergency Medicine; PCP Nurse Practitioner Family; Visit Provider Emergency Medicine
DX: M54.6 Pain in thoracic spine (principal); E78.5 Hyperlipidemia, unspecified; I10 Essential (primary) hypertension; G47.33 Obstructive sleep apnea (adult) (pediatric); Z99.89 Dependence on other enabling machines and devices; Z90.49 Acquired absence of other specified parts of digestive tract; Z90.710 Acquired absence of both cervix and uterus; Z98.41 Cataract extraction status, right eye; Z98.42 Cataract extraction status, left eye
CPT/HCPCS: 71046; 72072; 96372; 99282

== ENCOUNTER → 2025-02-15 | Outpatient (CLI) | payer OTHER, SELFPAY ==
[2025-02-15 12:24] LABS: Hematocrit 38.7 % (37-47); Hemoglobin 12.7 g/dL (12.0-15.0); Immature Granulocytes Count 0.030 X10^3/uL (0.0-0.0); Mean Corp Hgb Conc 32.8 g/dL (32-36); Mean Corpuscular Volume 86.0 fL (81-99); Mean Platelet Vol. 10.6 fl (6.2-12.0); NRBC Flagged by Analyzer 0 % (0-5); Platelet Count 266 K/mm3 (150-450); RBC Distribution Width CV 14.0 % (11.6-14.6); RBC Distribution Width SD 43.8 fl (35.1-43.9); Red Blood Count 4.50 M/mm3 (4.2-5.4); White Blood Count 7.6 K/mm3 (4.4-11.0)
[2025-02-15 13:19] LABS: AST(SGOT) 18 U/L (<=31); Alanine Aminotransfer ALT/SGPT 13 U/L (<=34); Albumin, Serum 4.3 g/dL (3.5-5.0); Alkaline Phosphatase 113 U/L (35-104); Anion Gap 12 (5-15); BUN 12 mg/dL (4-19); BUN/Creat Ratio 18.8 RATIO (10-20); Calcium,Total 10.0 mg/dL (7.6-11.0); Carbon Dioxide 21.5 mmol/L (21.0-32.0); Chloride 105 mmol/L (98-108); Globulin 3.5 g/dL (2.2-4.2); Glucose 86 mg/dL (70-99); Potassium 4.1 mmol/L (3.3-5.1); Vitamin B12 615 pg/mL (180-914); Vitamin D,25 Hydroxy 13.9 ng/mL (30-100)
== END | disposition home or self-care (01) ==
LOC: VSLAB 09:54
PROVIDERS: PCP Nurse Practitioner Family; Referring Provider Nurse Practitioner Family; Visit Provider Nurse Practitioner Family
DX: F33.0 Major depressive disorder, recurrent, mild (principal); E56.9 Vitamin deficiency, unspecified
CPT/HCPCS: 36415; 80053; 82306; 82607; 83036; 84443; 85025

== ENCOUNTER 2025-02-24 12:52 | Emergency (ER) | payer OTHER, SELFPAY ==
[2025-02-24] VITALS (7 sets, daily range): BP systolic 108–159; BP diastolic 63–91; PULSE 80–100; RESP 14–18; TEMP 36.2–36.6; O2SAT 98–100; BMI 45.0
--- NOTE | 2025-02-24 13:59 | EDS_ITS ---
HPI History of Present Illness Chief Complaint: General Illness Narrative Narrative: Patient is a 49-year-old female with a past medical history of CHRISTIANA, hyperlipidemia, hypertension, migraine headaches, vitamin B12 deficiency who presents to the emergency department with a chief complaint of sore throat, headache, whole body aches and not feeling well. Patient did note that she was very anxious and concerned about her symptoms as in the past she states that she was in the exact same room and had to be intubated awake secondary to allergic reaction. Patient denies any sick contacts. [facility] Medical History Lumbar strain Thoracic myofascial strain Cervical myofascial strain Lung nodules Preventative health care Colon cancer screening UTI (urinary tract infection) CHRISTIANA (obstructive sleep apnea) Chronic fatigue Lung nodule seen on imaging study Family history of early CAD Generalized anxiety disorder Hyperlipidemia Hypertension Arthritis Anemia Migraine headache Seizures Non-smoker CPAP (continuous positive airway pressure) dependence Sleep apnea Leg cramps History of pain when walking History of edema Abnormal uterine bleeding Tiredness Weight loss Back pain Neck pain Varicose veins of both lower extremities Hair loss disorder Chronic back pain Obesity Vitamin B12 deficiency Home Medications ?Medication ?Instructions ?Recorded ?Last Taken ?Type syringe with needle, safety 3 mL #100 ea 03/18/23 Unkn own Rx 25 gauge x 1 (Easy Touch SheathLock Syringe with Needle) cyanocobalamin (vitamin B-12) 1,000 mcg subcut QMONTH gastric 12/02/23 04/20/24 History 1,000 mcg/mL injection solution sleeve epinephrine 0.1 mg/0.1 mL 0.1 ml subcut X1 #2 ea 02/09 Unknown Rx injection, auto-injector ondansetron 4 mg disintegrating 4 mg PO Q8H PRN PRN Na usea #10 tabs 02/20/24 Unknown Rx tablet clopidogrel 75 mg tablet (Plavix) 75 mg PO DAILY #90 t abs 06/10/24 06/29/24 Rx cyclobenzaprine 10 mg tablet 10 mg PO HS PRN muscle sp asm #14 06/21/24 06/26/24 Rx tabs estradiol 0.01% (0.1 mg/gram) vaginal 06/27/24 Unknown History vaginal cream prednisone 20 mg tablet 20 mg PO QDAY PRN 07/20/24 U nknown History hydrocodone-acetaminophen 5-325mg 1 tab PO Q8H PRN Guzman n 3 days #10 12/26/24 Unknown Rx 5mg-325mg TABLETS ondansetron 4 mg disintegrating 4 mg PO Q6H PRN nausea and 02/24/25 Unknown Rx tablet vomiting #20 tabs Allergy/AdvReac Type Severity Reaction Status Date / Time nut - unspecified (nuts) Allergy Severe Angioedema Verified 02/24/25 12:53 ibuprofen (From Motrin) AdvReac Intermediate Shortness Verified 02/24/25 12:53 of breath Family History Father Diabetes Heart disease Lung cancer smoker- agent orange Arthritis Cancer Mother High cholesterol Surgical History H/O midurethral sling procedure History of placement of ear tubes S/P adenoidectomy History of cholecystectomy Hx of hysterectomy Hx of surgical procedure Status post hysterectomy (~10/17/21) Hx laparoscopic cholecystectomy Hx of bilateral cataract extraction History of carpal tunnel surgery of left wrist History of endometrial ablation History of gastric stapling History of History of tonsillectomy History of tubal ligation Social History Smoking Status: Never smoker alcohol intake: never substance use type: does not use caffeine: Yes what type of physical activity do you participate in: none seatbelt use: always do you feel safe at home: Yes additional social history: [employer] in [place] patient works at [employer] ROS ROS ED ROS Narrative Constitutional: Complains of whole body aches and chills as noted above denies any fevers Eyes, ears, nose, throat: Complaint of sore throat as noted above states that she is swallowing without any difficulty Cardiovascular: Complains of chest discomfort when she coughs denies palpitations Respiratory: Complains of cough as noted above denies shortness of breath Abdomen: Denies any abdominal pain nausea vomit diarrhea : Denies urinary symptoms Neurological: Denies any numbness, weakness, tingling Musculoskeletal: Denies back pain Skin: Denies any rashes or lesions EXAM Physical Exam Narrative Exam Narrative: General: Patient was lying in bed resting comfortably did not appear to be in acute distress Head: Atraumatic, normocephalic Eyes: PERRL bilaterally, EOMI bilaterally, no conjunctival injection noted, mild posterior pharynx erythema noted uvula midline no concern for peritonsillar abscess, external auditory canals clear bilaterally, TMs visualized bilaterally with some fluid noted behind the tympanic membrane however no concern for otitis media Neck: Soft, supple, trachea midline Cardiovascular: Regular rate and rhythm Respiratory: Clear to auscultation bilaterally Abdomen: Soft, nondistended, nontender to palpation Extremities: +5/5 strength noted in the bilateral upper and lower extremities Neurological: Patient following commands knew that she was at [facility] year is 2024 Skin: Warm, dry, intact no rashes or lesions noted Const Vital Signs: 02/24/25 12:53 02/24/25 12:54 02/24/25 13:54 Temperature 97.1 F L 97.1 F L 97.2 F L Temperature Source Oral Oral Oral Pulse Rate 100 99 82 Respiratory Rate 18 18 18 Respiratory Effort Respiratory Pattern Blood Pressure 159/91 H 159/91 H 138/77 H Blood Pressure Mean 113 113 97 Pulse Ox 98 98 100 Oxygen Delivery Method Room Air Room Air Room Air 02/24/25 14:00 02/24/25 14:37 02/24/25 14:53 Temperature 97.8 F Temperature Source Oral Pulse Rate 82 80 Respiratory Rate 14 16 Respiratory Effort Normal Respiratory Pattern Normal Blood Pressure 139/68 H 126/69 H Blood Pressure Mean 91 88 Pulse Ox 99 100 Oxygen Delivery Method Room Air 02/24/25 15:00 Temperature 97.8 F Temperature Source Oral Pulse Rate 80 Respiratory Rate 14 Respiratory Effort Respiratory Pattern Blood Pressure 113/68 Blood Pressure Mean 83 Pulse Ox 100 Oxygen Delivery Method Room Air MDM MDM MDM Narrative Medical decision making narrative: Patient is a 49-year-old female who presents to the emergency department chief complaint of cough, congestion, whole body aches and feeling overall under the weather. On the differential diagnose includes Melamin to strep throat, upper respiratory infection secondary viral etiology, pneumonia. Once the workup is obtained reviewed she will be reevaluated. Patient will be given Decadron here in the emergency department. Patient's chest x-ray was reviewed by myself and by radiology showed no acute cardiopulmonary processes. Patient tested negative for strep throat. She tested positive for COVID. Patient's EKG was reviewed as well and showed sinus rhythm with a rate of 70 bpm with MT interval 164 this was compared to EKG from January 31, 2024 and was largely unchanged. Discussed results with patient and she would like to go home at this point time she was advised to continue supportive care and follow-up with her doctor in the outpatient setting. She is agreeable this plan all question concerns answered she was discharged home in stable condition. Patient will be given prescription for Zofran ODT. Radiography Diagnostic Testing: Clinical Impression(s) from Imaging Studies Chest X-Ray 02/24/25 14:00 IMPRESSION: No radiographic evidence of acute cardiopulmonary pathology. Reading Location: [facility] Discharge Plan Triage Chief Complaint: General Illness ED Provider: Alex Perales Dx/Rx/DC Orders Clinical Impression: Upper respiratory infection, viral, Sore throat, COVID-19 Prescriptions: New ondansetron 4 mg tablet,disintegrating 4 mg PO Q6H PRN (Reason: nausea and vomiting) Qty: 20 0RF No Action clopidogrel [Plavix] 75 mg tablet 75 mg PO DAILY Qty: 90 3RF cyclobenzaprine 10 mg tablet 10 mg PO HS PRN (Reason: muscle spasm) Qty: 14 0RF cyanocobalamin (vitamin B-12) 1,000 mcg/mL solution 1,000 mcg subcut QMONTH Rx Instructions: INJECT 1000 MCG (1ML) INTRAMUSCULARLY ONCE A MONTH epinephrine 0.1 mg/0.1 mL auto-injector 0.1 ml subcut X1 Qty: 2 0RF ondansetron 4 mg tablet,disintegrating 4 mg PO Q8H PRN PRN (Reason: Nausea) Qty: 10 0RF estradiol 0.01 % (0.1 mg/gram) cream vaginal Patient Comments: PT HAS NOT STARTED hydrocodone-acetaminophen 5-325 mg tablet 1 tab PO Q8H PRN (Reason: Pain) 3 Days Qty: 10 0RF (DME) Easy Touch SheathLock Syrg-Ndl 3 mL 25 gauge x 1 syringe See Rx Instructions .Route Qty: 100 1RF Rx Instructions: As directed for B-12 injections Primary Care Provider: Andreas Calvert Referrals: Andreas Calvert, ENDING MACHINE OPERATOR-C [Primary Care Provider, Family Practice] Activity Restrictions/Additional Instructions: You tested positive for COVID-19 here in the emergency department. The steroid you were given will continue to work over the next several days. Continue supportive care and use Zofran as prescribed. Return with worsening symptoms or other concerns otherwise follow-up with your doctor. Print Language: Bruneian Disposition Disposition: Home, Self Care
--- NOTE | 2025-02-24 14:00 | RAD_ITS ---
PROCEDURE: CHEST PA AND LATERAL 02/24/2025 REASON FOR EXAM: Clinical history of cough. TECHNIQUE: Procedure Code: RADCXR Modality: DX Procedure: CHEST PA AND LATERAL COMPARISON: Chest radiographs 12/26/2024 FINDINGS: No focal lung consolidation, pneumothorax, or pleural effusion. The cardiomediastinal silhouette is within normal limits. The sean are within normal limits. Degenerative changes of the thoracic spine. Right upper quadrant surgical clips compatible with cholecystectomy. RAD/Chest PA and Lateral IMPRESSION: No radiographic evidence of acute cardiopulmonary pathology. Reading Location: [id number]
--- OUTSIDE RECORDS SUMMARY | 2025-02-24 14:13 | XMS RPT_ITS | CCD ---
Author Organization [facility] Care Team Providers Care Controls Operator Molded Goods Name Role Phone SUSAN, ISABEL Admitting Unavailable SUSAN, ISABEL Attending [...] Consulting Unavailable PROVIDER, UNKNOWN Consulting Unavailable JAY, MELINA DO Admitting Unavailable JAY, MELINA DO Primary Care Unavailable JAY, MELINA DO Attending Unavailable SUSAN, ISABEL Consulting Unavailable [...] UNKNOWN Consulting Unavailable PROVIDER, UNKNOWN Consulting Unavailable Dr. Mynor Garcia Primary Care Provider [phone] Dr. Mynor Garcia Referring Provider [phone] Nehal CARVAJAL, SCREENING TECH-C Andreas Attending Provider WEI Celis-Ranjan Means Attending Provider Dr. Maru Miller Attending Provider Debbie BECERRIL, JERRICA Luz Attending Provider Dr. Mynor Garcia Primary Care Provider [phone] Dr. Mynor Garcia Referring Provider [phone] Dr. Mynor Garcia Attending Provider [phone] Dr. Allie Coker Attending Provider [phone] Dr. Theresa Ren Attending Provider [phone] Dr. Mynor Garcia Primary Care Provider [phone] Dr. Mynor Garcia Referring Provider [phone] JOSE Celis Attending Provider Dr. Allie Coker Attending Provider [phone] Dr. Allie Coker Referring Provider [phone] Dr. Allie Coker Other Provider Dr. Marck Sampson Other Provider Dr. Antonia Torres Other Provider JERRICA Chi Attending Provider Unavail le Dr. Mynor Garcia Primary Care Provider [phone] Dr. Mynor Garcia Referring Provider [phone] Alida SCREENING TECH, SCREENING TECH-Ranjan Melgar Attending Provider [phone] Dr. Mynor Garcia Attending Provider [phone] Dr. Mynor Garcia Primary Care Provider [phone] Dr. Mynor Garcia Referring Provider [phone] [facility] SCREENING TECH, SCREENING TECHAisha Davis Attending Provider Dr. Mynor Garcia Other Provider [phone] Dr. Leo Oconnell Attending Provider Dr. Mynor Garcia Primary Care Provider [phone] Dr. Mynor Garcia Referring Provider [phone] Dr. Mynor Garcia Attending Provider [phone] Debbie BECERRIL, PA Tomas Luz Attending Provider [facility] SCREENING TECH, SCREENING TECH-C Angel Davis Attending Provider Dr. Allie Coker Attending Provider [phone] Dr. Mynor Garcia Primary Care Provider [phone] Dr. Mynor Garcia Referring Provider [phone] Dr. Allie Coker Attending Provider [phone] Dr. Mynor Garcia Attending Provider [phone] JERRICA Melendez Attending Provider [phone] Dr. Marck Thompson Attending Provider [phone] Dr. Mynor Garcia Primary Care Provider [phone] Dr. Mynor Garcia Referring Provider [phone] JERRICA Melendez Referring Provider [phone] Dr. Mynor Garcia Primary Care Provider [phone] [phone]) Dr. Mynor Garcia Referring Provider [phone] JERRICA Melendez Attending Provider [phone] Dr. Marck Thompson Attending Provider [phone] JERRICA Melendez Referring Provider [phone] Dr. Marck Thompson Referring Provider [phone] Marck Thompson Other Provider Nehal SCREENING TECH-C, Andreas Primary Care Provider Too VICTOR, Dr. Arevalo Emergency Provider Erlin VICTOR, Dr. Mary Buckley Admit Provider Erlin VICTOR, Dr. Mary Buckley Other Provider Bereket VICTOR, Dr. Story Other Provider Unavailable Nadia MOSELEY, Dr. Torres Other Provider [phone] Asia VICTOR, Dr. Omar Penn Attending Provider Aileen MOSELEY, Dr. Calero Other Provider [phone] Marcos VICTOR, Dr. Whipple Other Provider Leslie VICTOR, Dr. Orourke Other Provider Braden VICTOR, Dr. Choi Other Provider Adrian MOSELEY, Dr. Cabezsa Other Provider Renuka VICTOR, Dr. Jez Cortes Other Provider Dimple VICTOR, Dr. Geronimo Other Provider Flaco VICTOR, Dr. Lafleur Other Provider Nathaly VICTOR, Dr. Dorsey Other Provider [phone] Maria M VICTOR, Dr. Grady Other Provider Christiano VICTOR, Dr. Blackwell Other Provider Karol VICTOR, Dr. Hines Other Provider Ok VICTOR, Dr. Bynum Other Provider Unavailabl janett Parry MD, Dr. Glasgow Other Provider Alli VICTOR, Dr. Hinkle Other Provider Ana VICTOR, Dr. Sanford Other Provider Leobardo MOSELEY, Dr. Chavis Other Provider Bella VICTOR, Dr. Isaacs Other Provider Drake MOSELEY, Dr. Baltazar Other Provider Jaswinder VICTOR, Dr. Lomeli Other Provider Michael VICTOR, Dr. Alvarenga Other Provider Dr. Jez Cuba MD Attending Provider Unavaila jenny Campbell DO, Dr. Cabezas Attending Provider Bereket VICTOR, Dr. Story Referring Provider Unavaila jenny Gallagher DO, Dr. Calero Attending Provider Nadia MOSELEY, Dr. Torres Attending Provider Asia VICTOR, Dr. Omar Penn Other Provider Aileen MOSELEY, Dr. Calero Referring Provider Beam SCREENING TECH-C, Jagdeep Attending Provider Beam SCREENING TECH-C, Zebulun Referring Provider Diaz MOSELEY, Dr. Johnson Attending Provider Perales DO, Dr. Johnson Emergency Provider Calvert SCREENING TECH-C, Andreas Referring Provider Yeny VICTOR, Dr. Sanford Other Provider [phone] Devyn BECERRIL, Joy Other Provider Asia VICTOR, Dr. Omar Penn Referring Provider Nadia MOSELEY, Dr. Torres Referring Provider Elizabeth Shields Attending Provider [phone] Elizabeth Shields Referring Provider Donna VICTOR, Dr. Acharya Attending Provider Radha VICTOR, Dr. Lowe Attending Provider Radha VICTOR, Dr. Lowe Referring Provider Calvert SCREENING TECH-C, Andreas Primary Care Provider Calvert SCREENING TECH-C, Andreas Referring Provider Dr. Brian Zuniga DO Attending Provider Yeny VICTOR, Dr. Sanford Other Provider [phone] Devyn BECERRIL, Joy Other Provider Dr. Brian Zuniga DO Other Provider [phone] Dr. Omar Betancourt MD Attending Provider Asia VICTOR, Dr. Omar Penn Referring Provider Nadia MOSELEY, Dr. Torres Referring Provider Elizabeth Shields Attending Provider Elizabeth Shields Referring Provider Donna VICTOR, Dr. Acharya Attending Provider Radha VICTOR, Dr. Lowe Attending Provider [phone] Dr. Mynor Garcia MD Referring Provider [phone] Tomas Rogers Attending Provider Tomas Rogers Referring Provider Dr. Alex Perales DO Emergency Provider Calvert SCREENING TECH-C, Andreas Primary Care Provider Calvert SCREENING TECH-C, Andreas Referring Provider Dr. Brian Zuniga DO Attending Provider Dr. Alex Perales DO Attending Provider Donna VICTOR, Dr. Acharya Referring Provider [phone] Donna VICTOR, Dr. Acharya Other Provider [phone] Unavailable Primary Care Provider Unavailabl e Calvert VSC, Andreas Primary Care Unavailable Sanyurah, Juvenal Attending Unavailable Sanyurah, Juvenal Referring Unavailable Beam VSC, Zebulun Attending Unavailable Calvert VSC, Andreas Primary Care Unavailable Calvert VSC, Andreas Primary Care Unavailable Oleghe, Efewongbe Referring Unavailable Oleghe, Efewongbe Attending Unavailable Brian Zuniga Referring Unavailable Brian Zuniga Attending Unavailable Calvert VSC, Andreas Primary Care Unavailable Calvert VSC, Andreas Primary Care Unavailable Mary Kern Admitting Unavailable Raulito Campbell Attending Unavailable Jez Cuba Referring Unavailable Sarabjit Rodríguez Consulting Unavailable Sharad Nelson Consulting Unavailable Jimbo Feliciano Consulting Unavailable Raulito Campbell Consulting Unavailable Jez Grayson Consulting Unavailable Juanpablo Musa Consulting Unavailable Miquel aSm Consulting Unavailable Sunita Andersen Consulting Unavailab bob Franz Miguel A Consulting Unavailable Rishi Alvarado Consulting Unavailable Karol, Flora Consulting Unavailable Aljundi, Lamia Consulting Unavailable Sohan, Pee Consulting Unavailable Irukulla, Manan Consulting Unavailable Ana, Juvenal Consulting Unavailable Dhesi, Partha Consulting Unavailable Shital Blanco Consulting Unavailable Giovanny Juan Consulting Unavailable Hailey Sanam Consulting Unavailable Lyle Rodriguez Consulting Unavailable Mary Kern Consulting Unavailable Jez Cuba Consulting Unavailable Jez Cuba Attending Unavailable Brian Zuniga Attending Unavailable Abdias Gallagher Referring Unavailable FriendBrian Consulting Unavailable Abdias Gallagher Consulting Unavailable Kellyonis, Omar F Consulting Unavailable Calvert VSC, Andreas Primary Care Unavailable Alex Perales Attending Unavailable Alex Perales Attending Unavailable Calvert VSC, Andreas Primary Care Unavailable Calvert VSC, Andreas Primary Care Unavailable Bety Briggs Attending Unavailable MaxMarck mullen Attending Unavailable Melendez, Elizabeth Referring Unavailable Calvert VSC, Andreas Primary Care Unavailable Calvert VSC, Andreas Primary Care Unavailable Calvert VSC, Andreas Referring Unavailable Rosita Flores Attending Unavailable Brian Zuniga Attending Unavailable Abdias Gallagher Referring Unavailable Calvert VSC, Andreas Primary Care Unavailable Sathya Betancourtolas F Attending Unavailable Asia Omar F Attending Unavailable Calvert VSC, Andreas Primary Care Unavailable Kotsonis, Omar F Referring Unavailable Calvert VSC, Andreas Primary Care Unavailable Tomas Rogers Referring Unavailable Tomas Rogers Attending Unavailable Max, Marck Referring Unavailable Max, Marck Attending Unavailable Calvert VSC, Andreas Primary Care Unavailable Melendez, Elizabeth Attending Unavailable Melendez, Elizabeth Referring Unavailable Calvert VSC, Andreas Primary Care Unavailable Abdias Gallagher Attending Unavailable Calvert VSC, Andreas Primary Care Unavailable Melendez, Elizabeth Attending Unavailable Calvert VSC, Andreas Referring Unavailable Calvert VSC, Andreas Primary Care Unavailable Calvert VSC, Andreas Referring Unavailable Tomas Rogers Attending Unavailable Calvert VSC, Andreas Primary Care Unavailable Calvert VSC, Andreas Referring Unavailable MelendezTereso hsiehison Attending Unavailable Brian Zuniga Attending Unavailable Calvert VSC, Andreas Primary Care Unavailable Calvert VSC, Andreas Referring Unavailable FriendBrian Attending Unavailable Calvert VSC, Andreas Primary Care Unavailable Calvert VSC, Andreas Referring Unavailable Brian Zuniga Attending Unavailable Calvert VSC, Andreas Referring Unavailable Calvert VSC, Andreas Primary Care Unavailable Mary Kern Attending Unavailable Calvert VSC, Andreas Primary Care Unavailable Max, Marck Referring Unavailable Donna, Marck Consulting Unavailable Marck Thompson Attending Unavailable Beam VSC, Zebulun Referring Unavailable Calvert VSC, Andreas Primary Care Unavailable Beam VSC, Zebulun Attending Unavailable Friend, Brian Attending Unavailable Friend, Brian Consulting Unavailable Calvert VSC, Andreas Referring Unavailable Calvert VSC, Andreas Primary Care Unavailable Friend, Brian Attending Unavailable Calvert VSC, Andreas Referring Unavailable Calvert VSC, Andreas Primary Care Unavailable Juvenal Hansen Consulting Unavailable Joy Shepard Consulting Unavailable Calvert VSC, Andreas Primary Care Unavailable Omar Betancourt Attending Unavailable White, Mary L Consulting Unavailable White, Mary L Admitting Unavailable Jez Cuba Consulting Unavailable Friend, Brian Consulting Unavailable Abdias Gallagher Consulting Unavailable PAZJACLYN, AMLISETH Attending Unavailable UNGPRASERT, PATOMPONG Attending Unavailabl e UNGPRASERT, PATOMPONG Referring Unavailabl e UNGPRASERT, PATOMPONG Referring Unavailabl e UNGPRASERT, PATOMPONG Attending Unavailabl e PAZHANISAMY, AMEMHA Attending Unavailable UNGPRASERT, PATOMPONG Referring Unavailabl e TALKSCOT GUZMAN Attending Unavailable PAZHANISAMY, AMUDHA Referring Unavailable Allergies Allergy Classification Reported Allergen(s) Allergy Type Date of Onset Reaction(s) Facility (3 sources) Ibuprofen; Translations: [IBUPROFEN] Drug Allergy 6 [facility] Repository (20 sources) Ibuprofen Drug Allergy 6 Shortness of Breath [facility] (6 sources) nut - unspecified; Translations: [nut - unspecified] Allergy to substance 5 Angioedema [facility] Comment on above: cashews, almonds, pi stachio, sunflower seeds (1 source) Ibuprofen Drug Allergy 5 [facility] Repository (1 source) peanut allergenic extract Drug Allergy 5 [facility] Repository Medications Current Medications Medication Drug Class(es) Dates Sig (Normalized) Sig (Original) [id number] 200 actuat albuterol 0.09 mg/actuat metered dose inhaler (2 sources) beta2-Adrenergi c Agonist Start: 03-11-2018 take 2 puff(s) by inhalation every four hours as needed for wheezing albuterol HFA (PROAIR HFA) 90 mcg/actuation inhaler Indications: Sinobronchitis Inhale 2 Puffs as instructed every 4 hours as needed for Wheezing/Shortness of Breath. 1 Inhaler 03/11/2018 Active biotin 5 mg disintegrating oral tablet (20 sources) Start: 01-28-2018 End: 06-07-2021 biotin 5,000 mcg ODT DAILY 01/28/2018 Active calcium citrate 950 mg oral tablet (20 sources) Start: 01-28-2018 End: 06-07-2021 calcium citrate (CALCITRATE) 200 mg (950 mg) tab TWICE A DAY 01/28/2018 Active Start: 01-28-2018 End: 06-07-2021 cholecalciferol 0.05 mg oral capsule (20 sources) Vitamin D Start: 01-28-2018 End: 06-07-2021 Cholecalciferol, Vitamin D3, 2,000 unit cap TWICE A DAY 01/28/2018 Active clopidogrel 75 mg oral tablet (17 sources) [id number] Platelet Inhibitor Start: 05-13-2023 End: 06-21-2024 take 1 tablet by mouth once daily clopidogrel (PLAVIX) 75 mg tablet Take 75 mg by mouth once daily. 06/18/2024 Active cyclobenzaprine hydrochloride 10 mg oral tablet (20 sources) Muscle Relaxant Start: 06-21-2024 take 1 tablet by mouth at bedtime as needed for muscle spasms Cyclobenzaprine 10 mg tablet Active 10 mg PO BEDTIME as needed for muscle spasm June 21, 2024 12:00am Start: 05-20-2023 End: 05-27-2023 take 1 tablet by mouth three times daily as needed for muscle spasms Cyclobenzaprine 5 mg tablet Discontinued 5 mg PO THREE TIMES A DAY as needed for muscle spasm 19 09May 20, 2023 12:00am May 26, 2023 12:00am May 27, 2023 12:05am Start: 10-12-2022 End: 12-10-2022 take 1 tablet by mouth every eight hours as needed for muscle spasms Cyclobenzaprine 10 mg tablet Discontinued 10 mg PO Q8H as needed for Spasms October 12, 2022 8:39am December 10, 2022 4:37am Start: 07-16-2021 End: 09-26-2021 take 1 tablet by mouth three times daily as needed Cyclobenzaprine 5 mg tablet Discontinued 5 mg PO THREE TIMES A DAY as needed July 16, 2021 12:00am September 26, 2021 3:43pm Start: 12-27-2020 End: 06-07-2021 take 1 tablet by mouth three times daily as needed for muscle spasms Cyclobenzaprine 5 mg tablet Discontinued 5 mg PO THREE TIMES A DAY as needed for muscle spasm December 27, 2020 12:00am June 07, 2021 3:42pm Start: 09-11-2013 End: 08-13-2017 take 1 tablet by mouth every eight hours as needed for muscle spasms Cyclobenzaprine 10 MG tablet Discontinued 10 mg PO Q8H as needed for Spasms September 11, 2013 12:00am August 13, 2017 3:06pm Epinephrine 0.1 mg/0.1 mL auto-injector (3 sources) Start: 02-10-2024 Epinephrine 0.1 mg/0.1 mL auto-injector Active 0.1 mL SC ONE TIME 2 February 10, 2024 1:00am estradiol 0.1 mg/ml vaginal cream (3 sources) Estrogen Start: 06-27-2024 Estradiol 0.01 % (0.1 mg/gram) cream Active VAGINAL June 27, 2024 12:00am hydroxychloroquine sulfate 200 mg oral tablet (1 source) Antimalarial, Antirheumatic Agent Start: 10-27-2024 End: 10-27-2025 take 1 tablet by mouth twice daily hydrOXYchloroQUINE (PLAQUENIL) 200 mg tablet Indications: Seropositive rheumatoid arthritis (HCC) Take 1 tablet by mouth two times a day. 180 tablet 3 10/27/2024 10/27/2025 Active mecobalamin (6 sources) Start: 12-15-2022 inject 17060 ug by intramuscular injection every month Mecobalamin (Vitamin B12) Active 31803 MCG IM .once a month December 15, 2022 12:00am Start: 12-15-2022 inject 1 ug by intra muscular injection every month Mecobalamin (Vitamin B12) Active MCG IM .once a month December 14, 2022 11:00pm Start: 12-15-2022 inject 1 ug by intra muscular injection every month Mecobalamin (Vitamin B12) Active MCG IM .once a month December 15, 2022 12:00am MULTIVITAMIN ORAL (2 sources) Start: 01-28-2018 MULTIVITAMIN ORAL DAILY 01/28/2018 Active nitrofurantoin, macrocrystals 25 mg / nitrofurantoin, monohydrate 75 mg oral capsule (20 sources) Nitrofuran Antibacterial Start: 10-27-2024 End: 11-01-2024 take 1 capsule by mouth twice daily nitrofurantoin monohydrate and macrocrystal (MACROBID) 100 mg capsule Indications: Seropositive rheumatoid arthritis (HCC) Take 1 capsule by mouth two times a day for 5 days. 10 capsule 10/27/2024 11/01/2024 Active Start: 08-18-2023 End: 11-12-2023 take 1 capsule by mouth twice daily at mealtime Nitrofurantoin Monohyd/M-Cryst (Macrobid) 100 mg capsule Discontinued 100 mg PO TWICE A DAY August 18, 2023 12:00am November 12, 2023 8:18am must administer with a meal/food Start: 09-23-2022 End: 09-28-2022 take 1 capsule by mouth every twelve hours at mealtime Nitrofurantoin Monohyd/M-Cryst (Macrobid) 100 mg capsule Discontinued 100 mg PO Q12H 10 September 23, 2022 12:00am September 27, 2022 12:00am September 28, 2022 12:03am must administer with a meal/food Start: 08-25-2021 End: 08-30-2021 take 1 capsule by mouth every twelve hours at mealtime Nitrofurantoin Monohyd/M-Cryst (Macrobid) 100 mg capsule Discontinued 100 mg PO Q12H 10 August 25, 2021 12:00am August 29, 2021 12:00am August 30, 2021 12:03am must administer with a meal/food ondansetron 4 mg disintegrating oral tablet (5 sources) Serotonin-3 Receptor Antagonist Start: 02-20-2024 take 1 tablet by mouth every eight hours as needed for nausea Ondansetron 4 mg tablet,disintegrating Active 4 mg PO EVERY 8 HOURS NEEDED as needed for Nausea February 20, 2024 1:00am predniSONE 10 mg oral tablet (11 sources) Start: 06-21-2024 predniSONE (DELTASONE) 10 mg tablet Take 5 mg by mouth as needed. 06/21/2024 Active Start: 06-21-2024 End: 07-20-2024 take 4 tablets by mouth once daily, then take 3 tablets by mouth once daily, then take 2 tablets by mouth once daily, then take 1 tablet by mouth once daily Prednisone 10 mg tablet Discontinued 10 mg PO DAILY June 21, 2024 12:00am July 20, 2024 10:02am 4 tablets daily x3 days, then 3 tablets daily x3 days, then 2 tablets daily x3 days, then 1 tablet daily x3 days Start: 04-07-2024 End: 07-20-2024 take 1 tablet by mouth once daily as needed Prednisone 20 mg tablet Discontinued 20 mg PO daily as needed July 20, 2024 10:02am vitamin b12 1 mg/ml injectable solution (20 sources) Vitamin B12 Start: 01-02-2023 End: 12-02-2023 Cyanocobalamin (Vitamin B-12 ) 1,000 mcg/mL solution Active 1000 ug SC EVERY MONTH December 02, 2023 12:00am INJECT 1000 MCG (1ML) INTRAMUSCULARLY ONCE A MONTH Start: 01-02-2023 End: 12-02-2023 Start: 03-04-2022 End: 12-10-2022 Cyanocobalamin (Vitamin B-12 ) 1,000 mcg/mL solution Discontinued 0 .ROUTE .COMPLEX August 25, 2022 4:34pm December 10, 2022 4:37am INJECT 1000 MCG (1ML) INTRAMUSCULARLY ONCE A MONTH Start: 06-26-2021 End: 03-04-2022 inject 1000 ug by intramuscular injection every month Cyanocobalamin (Vitamin B-12) 1,000 mcg/mL solution Discontinued 1000 ug IM EVERY MONTH June 26, 2021 12:00am March 04, 2022 9:41am Start: 06-26-2021 End: 12-10-2022 Start: 03-13-2021 End: 06-07-2021 inject 1000 ug by intramuscular injection every month Cyanocobalamin (Vitamin B-12) 1,000 mcg/mL solution Discontinued 1000 ug IM EVERY MONTH March 13, 2021 2:32pm June 07, 2021 3:41pm Start: 12-19-2020 End: 03-13-2021 inject 100 ug by intramuscular injection every month Cyanocobalamin (Vitamin B-12) 1,000 mcg/mL solution Discontinued 100 ug IM EVERY MONTH March 13, 2021 12:29pm March 13, 2021 2:32pm Start: 12-19-2020 End: 06-07-2021 Start: 12-19-2020 End: 03-13-2021 inject 100 ug by intramuscular injection every month Cyanocobalamin (Vitamin B-12) Discontinued 100 MCG IM EVERY MONTH March 13, 2021 12:29pm March 13, 2021 2:32pm Start: 01-28-2018 cyanocobalamin (VITAMIN B-12) 500 mcg tab tab(s) WE 01/28/2018 Active Start: 01-28-2018 End: 12-19-2020 Cyanocobalamin (Vitamin B-12 ) 500 MCG tablet Discontinued 1000 ug PO WE January 28, 2018 1:00am December 19, 2020 1:27pm Start: 01-28-2018 End: 12-19-2020 Start: 01-28-2018 End: 12-19-2020 Cyanocobalamin (Vitamin B-12 ) Discontinued 1000 MCG PO WE January 28, 2018 1:00am December 19, 2020 1:27pm Completed/Discontinued Medications Medication Drug Class(es) Dates Sig (Normalized) Sig (Original) acetaminophen 325 mg / HYDROcodone bitartrate 5 mg oral tablet (20 sources) Opioid Agonist Start: 07-30-2023 End: 08-14-2023 Hydrocodone-Acetami nophen 5-325 mg tablet Discontinued 1 {tbl} PO EVERY 6 HOURS NEEDED as needed for Pain 12 02July 30, 2023 August 14, 2023 3:20pm Start: 07-30-2023 End: 08-14-2023 Start: 11-27-2021 End: 11-30-2021 Hydrocodone-Acetaminophen 5- 325 mg tablet Discontinued 1 {tbl} PO Q8H as needed for pain 17 05November 27, 2021 November 29, 2021 12:00am November 30, 2021 12:09am Start: 11-27-2021 End: 11-30-2021 Start: 11-27-2021 End: 11-30-2021 take 1 tablet by mouth every eight hours Hydrocodone-Acetaminophen Discontinued 1 TABLET PO Q8H 18 November 27, 2021 November 30, 2021 12:09am Start: 02-04-2018 End: 02-08-2018 Hydrocodone-Acetaminophen 1 TABLET tablet Discontinued 1 {tbl} PO EVERY 6 HOURS NEEDED as needed for Pain 8 February 04, 2018 1:00am February 07, 2018 1:00am February 08, 2018 1:08am Start: 02-04-2018 End: 02-08-2018 Start: 02-04-2018 End: 02-08-2018 take 1 tablet by mouth every six hours as needed Hydrocodone-Acetaminophen Discontinued 1 TABLET PO EVERY 6 HOURS NEEDED 8 February 04, 2018 1:00am February 08, 2018 1:08am Start: 09-11-2013 End: 08-13-2017 Hydrocodone-Acetaminophen 1 TABLET tablet Discontinued 1 - 2 {tbl} PO EVERY 4 HOURS NEEDED as needed for Pain September 11, 2013 12:00am August 13, 2017 3:06pm Start: 09-11-2013 End: 08-13-2017 Start: 09-11-2013 End: 08-13-2017 take 1 tablet by mouth every four hours as needed Hydrocodone-Acetaminophen Discontinued 1 - 2 TABLET PO EVERY 4 HOURS NEEDED September 11, 2013 12:00am August 13, 2017 3:06pm acetaminophen 325 mg / oxyCODONE hydrochloride 5 mg oral tablet (20 sources) Opioid Agonist Start: 10-17-2021 End: 11-02-2021 Oxycodone-Acetaminophen (Percocet) 5-325 mg tablet Discontinued 1 {tbl} PO Q4H as needed for pain 18 October 30, 2021 November 01, 2021 12:00am November 02, 2021 12:05am Start: 10-17-2021 End: 11-02-2021 amoxicillin 500 mg oral capsule (18 sources) Penicillin-class Antibacterial Start: 05-18-2021 End: 05-28-2021 take 2 capsules by mouth twice daily at mealtime Amoxicillin 500 mg capsule Discontinued 1000 mg PO TWICE A DAY 40 May 18, 2021 12:00am May 27, 2021 12:00am May 28, 2021 12:03am take with food Start: 05-18-2021 End: 05-28-2021 aspirin 81 mg delayed release oral tablet (5 sources) Platelet Aggregation Inhibitor, Nonsteroidal Anti-inflammatory Drug Start: 05-20-2023 End: 06-27-2024 take 1 tablet by mouth once daily Aspirin 81 mg tablet,delayed release (DR/EC) Discontinued 81 mg PO DAILY May 20, 2023 12:00am June 27, 2024 5:58pm benzonatate 100 mg oral capsule (14 sources) Non-narcotic Antitussive Start: 02-17-2022 End: 04-16-2022 take 2 capsules by mouth three times daily as needed for cough Benzonatate 100 mg capsule Discontinued 200 mg PO THREE TIMES A DAY as needed for cough February 17, 2022 1:00am April 16, 2022 3:41pm Start: 02-17-2022 End: 04-16-2022 24 hr buPROPion hydrochloride 300 mg extended release oral tablet (10 sources) Aminoketone Start: 02-04-2024 End: 03-16-2024 take 1 tablet by mouth once daily Bupropion Hcl 300 mg tablet extended release 24 hr Discontinued 300 mg PO DAILY February 04, 2024 1:00am March 16, 2024 10:04am Start: 11-12-2023 End: 02-04-2024 take 1 tablet by mouth once daily Bupropion Hcl (Wellbutrin Sr) 100 mg tablet sustained-release 12 hr Discontinued 100 mg PO daily November 12, 2023 12:00am February 04, 2024 4:16pm cephalexin 500 mg oral capsule (15 sources) Cephalosporin Antibacterial Start: 10-17-2021 End: 11-27-2021 take 1 capsule by mouth every twelve hours Cephalexin 500 mg capsule Discontinued 500 mg PO EVERY 12 HOURS 6 3 October 17, 2021 12:00am November 27, 2021 3:11pm diclofenac sodium 75 mg delayed release oral tablet (18 sources) Nonsteroidal Anti-inflammatory Drug Start: 09-11-2013 End: 08-13-2017 take 1 tablet by mouth twice daily at mealtime Diclofenac Sodium 75 MG tablet Discontinued 75 mg PO TWICE DAILY WITH MEALS September 11, 2013 12:00am August 13, 2017 3:06pm ferrous sulfate 325 mg oral tablet (20 sources) Start: 01-28-2018 End: 06-07-2021 take 1 tablet by mouth once daily Ferrous Sulfate (Iron (Ferrous Sulfate)) 325 MG tablet Discontinued 325 mg PO DAILY January 28, 2018 1:00am June 07, 2021 3:42pm Start: 11-24-2017 take 1 tablet by narcisa th twice daily ferrous sulfate 325 mg (65 mg iron) tablet Take 1 tablet by mouth twice daily. 11/24/2017 Active FLUoxetine 20 mg oral tablet (20 sources) Serotonin Reuptake Inhibitor Start: 07-14-2022 End: 11-12-2023 take 1 tablet by mouth twice daily in the morning Fluoxetine 20 mg tablet Discontinued 20 mg PO TWICE A DAY June 17, 2023 12:30pm November 12, 2023 8:17am administer in the morning and at noon/midday fluticasone propionate 0.05 mg/actuat metered dose nasal spray (18 sources) Corticosteroid Start: 03-13-2021 End: 06-07-2021 take 50 ug nasal route once daily Fluticasone Propionate (Flonase Allergy Relief) 50 mcg/actuation spray,suspension Discontinued 2 NMA INTRANASAL DAILY 15.March 13, 2021 1:00am June 07, 2021 3:42pm administer into each nostril Start: 03-13-2021 End: 06-07-2021 take 1 spray(s) nasal route once daily Fluticasone Propionate (Flonase Allergy Relief) 50 mcg/actuation spray,suspension Discontinued 2 SPRAY INTRANASAL DAILY 15.March 13, 2021 1:00am June 07, 2021 3:42pm administer into each nostril gabapentin 300 mg oral capsule (15 sources) Anti-epileptic Agent Start: 11-27-2021 End: 04-16-2022 take 1 capsule by mouth three times daily at bedtime as needed Gabapentin 300 mg capsule Discontinued 300 mg PO THREE TIMES A DAY November 27, 2021 12:00am April 16, 2022 3:42pm start with once daily at bedtime and increase as needed ibuprofen 600 mg oral tablet (20 sources) Nonsteroidal Anti-inflammatory Drug Start: 02-04-2018 End: 10-27-2024 ibuprofen (MOTRIN) 600 mg tablet 02/04/2018 10/27/2024 Discontinued Mecobalamin (Vitamin B12) 10,000 mcg recon soln (3 sources) Start: 12-15-2022 End: 11-12-2023 inject [id number] ug by intramuscular injection every month Mecobalamin (Vitamin B12) 10,000 mcg recon soln Discontinued [id number] ug IM .once a month December 15, 2022 12:00am November 12, 2023 8:17am meloxicam 7.5 mg oral tablet (18 sources) Nonsteroidal Anti-inflammatory Drug Start: 12-19-2020 End: 06-07-2021 take 7.5-15 mg by mouth once daily as needed for pain Meloxicam (Mobic) 7.5 mg tablet Discontinued 7.5 - 15 mg PO DAILY as needed for pain, mild 60 December 19, 2020 12:00am June 07, 2021 3:42pm metroNIDAZOLE 500 mg oral tablet (14 sources) Nitroimidazole Antimicrobial Start: 01-22-2022 End: 01-24-2022 take 1 tablet by mouth twice daily Metronidazole 500 mg tablet Discontinued 500 mg PO TWICE A DAY 14 January 22, 2022 1:00am January 28, 2022 1:00am January 24, 2022 9:34am Multivitamin (Multiple Vitamins) 1 EACH tablet (16 sources) Start: 01-28-2018 End: 06-07-2021 take 1 tablet by mouth once daily Multivitamin (Multiple Vitamins) 1 EACH tablet Discontinued 1 EACH PO DAILY January 28, 2018 9:41am June 07, 2021 3:42pm Start: 01-28-2018 End: 06-07-2021 take 1 tablet by mouth once daily Multivitamin (Multiple Vitamins) 1 EACH tablet Discontinued 1 NMA PO DAILY January 28, 2018 1:00am June 07, 2021 3:42pm Start: 01-28-2018 End: 06-07-2021 take 1 tablet by mouth once daily Multivitamin (Multiple Vitamins) 1 EACH tablet Discontinued 1 EACH PO DAILY January 28, 2018 12:00am June 07, 2021 2:42pm Start: 01-28-2018 End: 06-07-2021 take 1 tablet by mouth once daily Multivitamin (Multiple Vitamins) 1 EACH tablet Discontinued 1 EACH PO DAILY January 28, 2018 1:00am June 07, 2021 3:42pm Mupirocin (11 sources) RNA Synthetase Inhibitor Antibacterial Start: 08-10-2022 End: 12-10-2022 Mupirocin 2 % ointment Discontinued 1 NMA TOPICAL TWICE A DAY August 10, 2022 12:00am December 10, 2022 4:37am Start: 08-10-2022 End: 12-10-2022 Mupirocin Discontinued 1 STEPHANI LIC TOPICAL TWICE A DAY August 09, 2022 11:00pm December 10, 2022 3:37am Start: 08-10-2022 End: 12-10-2022 Mupirocin Discontinued 1 STEPHANI LIC TOPICAL TWICE A DAY August 10, 2022 12:00am December 10, 2022 4:37am Start: 08-10-2022 Mupirocin Acti ve 1 APPLIC TOPICAL TWICE A DAY August 10, 2022 12:00am naproxen 500 mg oral tablet (15 sources) Nonsteroidal Anti-inflammatory Drug Start: 10-17-2021 End: 10-30-2021 take 1 tablet by mouth twice daily as needed for pain Naproxen 500 mg tablet Discontinued 500 mg PO TWICE DAILY NEEDED as needed for Pain October 17, 2021 12:00am October 30, 2021 11:55am pantoprazole 20 mg delayed release oral tablet (5 sources) Proton Pump Inhibitor Start: 12-16-2023 End: 03-16-2024 take 1 tablet by mouth once daily Pantoprazole 20 mg tablet,delayed release (DR/EC) Discontinued 20 mg PO daily December 16, 2023 12:00am March 16, 2024 10:04am phenazopyridine hydrochloride 200 mg oral tablet (17 sources) Start: 08-25-2021 End: 09-26-2021 take 1 tablet by mouth three times daily as needed for pain Phenazopyridine (Pyridium) 200 mg tablet Discontinued 200 mg PO THREE TIMES A DAY as needed for pain August 25, 2021 12:00am September 26, 2021 3:43pm prednisoLONE 2 mg/ml oral solution (5 sources) Corticosteroid Start: 03-03-2024 End: 03-16-2024 take 10 mg by mouth once daily in the morning Prednisolone Sodium Phosphate 10 mg/5 mL solution Discontinued 10 mg PO EVERY MORNING 150 March 03, 2024 1:00am April 01, 2024 1:00am March 16, 2024 10:05am Sucralfate 100 mg/mL suspension (3 sources) Start: 03-03-2024 End: 04-02-2024 take 1 mL by mouth twice daily Sucralfate 100 mg/mL suspension Discontinued 10 mL PO TWICE A DAY March 03, 2024 1:00am April 01, 2024 1:00am April 02, 2024 1:16am sulfamethoxazole 800 mg / trimethoprim 160 mg oral tablet (20 sources) Dihydrofolate Reductase Inhibitor Antibacterial, Sulfonamide Antimicrobial Start: 01-24-2022 End: 01-29-2022 Sulfamethoxazole-Tr imethoprim 800-160 mg tablet Discontinued 1 {tbl} PO TWICE A DAY 10 January 24, 2022 1:00am January 28, 2022 1:00am January 29, 2022 1:03am Start: 01-24-2022 End: 01-29-2022 Start: 01-24-2022 End: 01-29-2022 take 1 tablet by mouth twice daily Sulfamethoxazole-Trimethoprim Discontinued 1 TABLET PO TWICE A DAY 10 January 24, 2022 1:00am January 29, 2022 1:03am Start: 09-08-2021 End: 09-18-2021 Sulfamethoxazole-Trimethopri m (Bactrim Ds) 800-160 mg tablet Discontinued 1 {tbl} PO TWICE A DAY 20 September 08, 2021 12:00am September 17, 2021 12:00am September 18, 2021 12:03am Start: 09-08-2021 End: 09-18-2021 (16 sources) Start: 03-03-2024 End: 04-02-2024 Start: 02-10-2024 Start: 03-18-2023 Start: 03-18-2023 End: 03-18-2023 Start: 12-15-2022 End: 11-12-2023 Start: 08-10-2022 End: 12-10-2022 Start: 12-19-2021 End: 12-15-2022 Start: 01-28-2018 End: 06-07-2021 Problems Active Problems Problem Classification Problem Date Documented Date Episodic/Chronic Abdominal pain (19 sources) Right upper quadrant pain; Translations: [Lower abdominal pain] Onset: 02-22-20 20 05-19-2023 Episodic Anxiety disorders (20 sources) Generalized anxiety disorder; Translations: [Generalized anxiety disorder] 07-14-2022 Chronic Biliary tract disease (1 source) Calculus of bile duct without cholangitis or cholecystitis without obstruction; Translations: [Calculus of bile duct without cholangitis or cholecystitis without obstruction] Onset: 03-15-19 Episodic Cardiac dysrhythmias (7 sources) Sinus tachycardia; Translations: [Tachycardia, unspecified] 01-31-2024 Episodic Complications of surgical procedures or medical care (5 sources) Complication associated with device; Translations: [Gastrostomy complication, unspecified] 02-28-2024 Episodic Diseases of white blood cells (1 source) Elevated white blood cell count, unspecified; Translations: [Elevated white blood cell count, unspecified] Onset: 03-18-19 Chronic Disorders of lipid metabolism (19 sources) Hyperlipidemia; Translations: [Hyperlipidemia, unspecified] 07-14-2022 Chronic E Codes: Fall (4 sources) Fall; Translations: [Unspecified fall, initial encounter] Episodic Essential hypertension (19 sources) Hypertensive disorder; Translations: [Essential (primary) hypertension] 07-14-2022 Chronic Genitourinary symptoms and ill-defined conditions (20 sources) Incontinence; Translations: [Mixed incontinence] Chronic Comment on above: urogyn consult, mid urethral sling 10/17/21 Genitourinary symptoms and ill-defined conditions (7 sources) Dysuria; Translations: [Dysuria] Episodic Headache; including migraine (11 sources) Migraine; Translations: [Migraine, unspecified, not intractable, without status migrainosus] 12-18-2022 Chronic Headache; including migraine (17 sources) Headache; Translations: [Headache] 12-18-2022 Episodic Malaise and fatigue (14 sources) Fatigue; Translations: [Chronic fatigue, unspecified] 09-03-2022 Chronic Miscellaneous mental health disorders (20 sources) Lack or loss of sexual desire; Translations: [Hypoactive sexual desire disorder] Chronic Comment on above: lifetime, discussed and encouraged counseling. Nausea and vomiting (4 sources) Nausea with vomiting, unspecified; Translations: [Vomiting] Onset: 02-22-20 20 06-27-2024 Episodic Nonmalignant breast conditions (1 source) Mastodynia; Translations: [Mastodynia] 04-16-2022 Episodic Nonspecific chest pain (6 sources) Musculoskeletal chest pain; Translations: [Other chest pain] 05-19-2023 Episodic Nutritional deficiencies (19 sources) Cobalamin deficiency; Translations: [Deficiency of other specified B group vitamins] Episodic Open wounds of head; neck; and trunk (15 sources) Open wound of nasal septum; Translations: [Unspecified open wound of nose, initial encounter] 08-10-2022 Episodic Other aftercare (5 sources) Surgical follow-up; Translations: [Encounter for surgical aftercare following surgery on the circulatory system] 11-20-2023 Episodic Other aftercare (1 source) Drug therapy finding; Translations: [Other rug cleaner hand (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) drug therapy] 10-27-2024 Episodic Other bone disease and musculoskeletal deformities (17 sources) Segmental and somatic dysfunction; Translations: [Segmental and somatic dysfunction of thoracic region] 07-16-2021 Episodic Other bone disease and musculoskeletal deformities (4 sources) Segmental and somatic dysfunction of thoracic region; Translations: [Nonallopathic lesions, thoracic region] Episodic Other circulatory disease (15 sources) Vasculitis; Translations: [Arteritis, unspecified] 04-07-2024 Chronic Other circulatory disease (1 source) Arteritis, unspecified; Translations: [Arteritis, unspecified] Onset: 04-07-19 Chronic Other connective tissue disease (1 source) Pain in left foot; Translations: [Pain in limb] Episodic Other diseases of veins and lymphatics (5 sources) Obstruction of iliac vein; Translations: [Compression of vein] 06-03-2023 Episodic Other diseases of veins and lymphatics (6 sources) Occlusion of iliac vein; Translations: [Compression of vein] 06-10-2024 Episodic Other ear and sense organ disorders (18 sources) Otalgia, left ear; Translations: [Otalgia of left ear] 08-01-2013 Episodic Other female genital disorders (20 sources) Dyspareunia; Translations: [Dyspareunia] Chronic Comment on above: deep- doxycycline or dered, US, if no resolution suspect adenomyosis. Other female genital disorders (18 sources) Abnormal uterine bleeding; Translations: [Abnormal uterine and vaginal bleeding, unspecified] 10-21-2021 Chronic Comment on above: s/p ablation, now re duced bleeding but irregular and painful. ordered US Other female genital disorders (5 sources) Abnormal uterine and vaginal bleeding, unspecified; Translations: [Unspecified disorders of menstruation and other abnormal bleeding from female genital tract] Chronic Other female genital disorders (8 sources) Pelvic congestion syndrome; Translations: [Other specified conditions associated with female genital organs and menstrual cycle] 04-06-2023 Episodic Comment on above: Duplex- negative for reflux Other female genital disorders (3 sources) Other specified conditions associated with female genital organs and menstrual cycle; Translations: [Pelvic congestion syndrome] 04-06-2023 Episodic Other gastrointestinal disorders (18 sources) Celiac disease; Translations: [Celiac disease] 12-16-2023 Chronic Other gastrointestinal disorders (1 source) Bariatric surgery status; Translations: [Bariatric surgery status] Onset: 12-23-19 Episodic Other gastrointestinal disorders (20 sources) Dysphagia; Translations: [Dysphagia, unspecified] 02-06-2024 Episodic Other injuries and conditions due to external causes (4 sources) Injury of left ankle; Translations: [Unspecified injury of left ankle, initial encounter] Episodic Other injuries and conditions due to external causes (4 sources) Unspecified injury of left thigh, initial encounter; Translations: [Injury of left thigh] Episodic Other injuries and conditions due to external causes (17 sources) Allergic angioedema due to ingested food; Translations: [Angioneurotic edema, initial encounter] 01-31-2024 Episodic Other injuries and conditions due to external causes (2 sources) Angioneurotic edema, initial encounter; Translations: [Angioneurotic edema, initial encounter] Onset: 05-04-19 Episodic Other lower respiratory disease (17 sources) Nodule of lung; Translations: [Solitary pulmonary nodule] 08-30-2022 Episodic Other lower respiratory disease (10 sources) Multiple nodules of lung; Translations: [Other nonspecific abnormal finding of lung field] 03-05-2023 Episodic Other lower respiratory disease (7 sources) Respiratory obstruction; Translations: [Other specified respiratory disorders] 01-31-2024 Episodic Other lower respiratory disease (7 sources) Acute respiratory distress; Translations: [Acute respiratory distress] 01-31-2024 Episodic Other nervous system disorders (4 sources) Other chronic pain; Translations: [Other chronic pain] Onset: 11-25-19 Chronic Other nervous system disorders (2 sources) Disorder of the peripheral nervous system; Translations: [Hereditary and idiopathic neuropathy, unspecified] Onset: 09-16-1909-16-2011 Chronic Other non-traumatic joint disorders (5 sources) Multiple joint pain; Translations: [Pain in unspecified joint] 10-07-2024 Episodic Other nutritional; endocrine; and metabolic disorders (1 source) Morbid (severe) obesity due to excess calories; Translations: [Morbid (severe) obesity due to excess calories] Onset: 12-23-19 Chronic Other nutritional; endocrine; and metabolic disorders (18 sources) Obesity; Translations: [Obesity, unspecified] 12-19-2020 Chronic Other nutritional; endocrine; and metabolic disorders (1 source) Obesity, unspecified; Translations: [Obesity, unspecified] Chronic Other nutritional; endocrine; and metabolic disorders (7 sources) Body mass index 40+ - severely obese; Translations: [Body mass index (BMI) 40.0-44.9, adult] 01-31-2024 Chronic Other screening for suspected conditions (not mental disorders or infectious disease) (18 sources) Encounter for screening for diseases of the blood and blood-forming organs and certain disorders involving the immune mechanism; Translations: [Encounter for screening for lipoid disorders] Onset: 12-23-1912-19-2022 Episodic Comment on above: anterior vag introit us, will see Dr Torres Other skin disorders (18 sources) Loss of hair; Translations: [Nonscarring hair loss, unspecified] 06-26-2021 Episodic Other skin disorders (3 sources) Nonscarring hair loss, unspecified; Translations: [Alopecia, unspecified] Episodic Otitis media and related conditions (7 sources) Otitis media; Translations: [Otitis media, unspecified, bilateral] Episodic Residual codes; unclassified (13 sources) Obstructive sleep apnea syndrome; Translations: [Obstructive sleep apnea (adult) (pediatric)] 09-03-2022 Chronic Residual codes; unclassified (3 sources) Obstructive sleep apnea (adult) (pediatric); Translations: [Obstructive sleep apnea (adult)(pediatric)] 09-03-2022 Chronic Residual codes; unclassified (3 sources) Acquired absence of both cervix and uterus; Translations: [Acquired absence of both cervix and uterus] Episodic Residual codes; unclassified (14 sources) FH: premature coronary heart disease; Translations: [Family history of ischemic heart disease and other diseases of the circulatory system] 07-14-2022 Episodic Residual codes; unclassified (3 sources) Family history of ischemic heart disease and other diseases of the circulatory system; Translations: [Family history of ischemic heart disease] 07-14-2022 Episodic Residual codes; unclassified (5 sources) Personal history of other specified conditions; Translations: [History of dysphagia] 02-28-2024 Episodic Rheumatoid arthritis and related disease (2 sources) Seropositive rheumatoid arthritis; Translations: [Rheumatoid arthritis with rheumatoid factor, unspecified] Onset: 10-28-1910-27-2024 Chronic Spondylosis; intervertebral disc disorders; other back problems (1 source) Spondylosis, unspecified; Translations: [Spondylosis, unspecified] Onset: 11-25-19 Chronic Spondylosis; intervertebral disc disorders; other back problems (20 sources) Pain in thoracic spine; Translations: [Chronic back pain ] Onset: 11-25-19 Episodic Comment on above: DDD, SPURS, ARTHRITI S Superficial injury; contusion (3 sources) Abrasion, left ankle, initial encounter; Translations: [Abrasion of left ankle, initial encounter] Episodic Systemic lupus erythematosus and connective tissue disorders (2 sources) Keratoconjunctivitis sicca, in Sjogren's syndrome; Translations: [Sicca syndrome with keratoconjunctivitis] Onset: 10-08-1910-27-2024 Chronic Unclassified (1 source) Abrasion, left ankle, initial encounter Unclassified (9 sources) Suture material present; Translations: [Suture material present] 01-22-2022 Unclassified (1 source) Adverse food reaction, sequela; Translations: [Adverse food reaction, sequela] Onset: 01-05-20 Unclassified (1 source) Chronic midline low back pain without sciatica; Translations: [Chronic midline low back pain without sciatica] Onset: 10-08-19 Urinary tract infections (20 sources) Urinary tract infectious disease; Translations: [Urinary tract infection, site not specified] Episodic Varicose veins of lower extremity (20 sources) Varicose veins of lower extremity; Translations: [Asymptomatic varicose veins of bilateral lower extremities] Episodic Past or Other Problems Problem Classification Problem Date Documented Da te Episodic/Chronic Allergic reactions (20 sources) Anaphylaxis; Translations: [Anaphylactic shock, unspecified, initial encounter] Onset: 02-18-2024 01-31-2024 Episodic Complication of device; implant or graft (15 sources) Graft complications; Translations: [Erosion of implanted urethral mesh to surrounding organ or tissue, initial encounter] Onset: 03-23-2024 12-15-2022 Episodic Inflammation; infection of eye (except that caused by tuberculosis or sexually transmitteddisease) (6 sources) Acute anterior uveitis; Translations: [Unspecified acute and subacute iridocyclitis] Onset: 10-07-2024 10-07-2024 Episodic Malaise and fatigue (4 sources) Asthenia; Translations: [Weakness] Onset: 06-29-2024 06-27-2024 Episodic Other and unspecified benign neoplasm (2 sources) Benign connective tissue neoplasm; Translations: [Benign neoplasm of connective and other soft tissue, unspecified] Onset: 09-16-2011 09-16-2011 Episodic Other complications of (2 sources) Finding related to ; Translations: [Edema or excessive weight gain, antepartum] Onset: 06-14-2005 Resolved: 09-05-2011 09-05-2011 Episodic Other diseases of veins and lymphatics (2 sources) Compression of vein; Translations: [Compression of vein] Onset: 07-23-2024 Episodic Other gastrointestinal disorders (2 sources) Dysphagia, unspecified; Translations: [Dysphagia, unspecified] Onset: 04-11-2024 Episodic Other injuries and conditions due to external causes (1 source) Angioneurotic edema, subsequent encounter; Translations: [Angioneurotic edema, subsequent encounter] Onset: 03-17-2024 Episodic Other injuries and conditions due to external causes (1 source) Angioneurotic edema, sequela; Translations: [Angioedema, sequela] Onset: 10-07-2024 Episodic Other lower respiratory disease (1 source) Solitary pulmonary nodule; Translations: [Solitary pulmonary nodule] Onset: 05-26-2024 Episodic Other lower respiratory disease (1 source) Other specified respiratory disorders; Translations: [Other specified respiratory disorders] Onset: 02-18-2024 Episodic Other non-traumatic joint disorders (1 source) Pain in unspecified joint; Translations: [Polyarthralgia] Onset: 10-07-2024 Episodic Other and delivery including normal (2 sources) Normal ; Translations: [Encounter for supervision of other normal , unspecified trimester] Onset: 06-14-2005 Resolved: 09-05-2011 09-05-2011 Episodic Residual codes; unclassified (1 source) Pain, unspecified; Translations: [Pain, unspecified] Onset: 06-27-2024 Episodic Sprains and strains (20 sources) Sprain of spinal ligament; Translations: [Sprain of back] Onset: 06-21-2024 09-19-2023 Episodic Results Test Name Value Interpretation Reference Range Facility [facility] 01-10-2025 [facility]OV Office Visit ([facility]) FABIENNE FRANKS ([id number]) 1975 F Date Time Provider Department 01/10/25 1:30 PM JANINA GOVEA During your visit today, we recorded the following information about you: Temperature Pulse Respiration Blood pressure 97.8 degrees 89/minute 18/minute 140/82 Weight 121.6 kg Jocy Humphrey RN 01/10/2025 2:41 PM Signed Patient here for allergy testing. In January of 2024, had [facility] and stated her throat closed up. Was seen at [facility]. Did have a reaction at [place] but was able to control her symptoms by going home and taking a cold shower. Janina Govea DO 01/10/2025 2:41 PM Signed Allergy and Immunology 01/10/2025 CHIEF COMPLAINT: recurrent swelling episodes HISTORY OF PRESENT ILLNESS: Here today to review results and do potential skin testing She has eaten shrimp occasionally but pre treats with benadryl and prednisone and eats only a few at a time She has been avoiding [facility] Feels as though plaquenil has made her joint symptoms worse No interval hives/angioedema since last visit Today she recalls more episodes of hives and angioedema Was told she was allergic to pine nut, peanut, tree nuts based on skin testing but is able to tolerate these foods. Occasionally she has had diffuse hives +/- angioedema after peanut for example but not consistently/ Used to happen once a year but has had 3 episodes in last year Social Hx: SOCIAL HISTORY[1] Employer And Job Title: [employer] ([employer]); [employer] ([employer]) Years Of Education Completed: 12 years Marital Status: to SHENA with 3 children SOCIAL HISTORY No social history on file. PAST MEDICAL HISTORY Diagnosis Date Localization-related (focal) (partial) epilepsy and epileptic syndromes with simple partial seizures, without mention of intractable epilepsy AFTER OF FIRST CHILD FAMILY HISTORY Problem Relation Age of Onset Lipids Mother Arthritis Father Diabetes Father Heart Father Hypertension Father Cancer Maternal Grandmother ?THROAT. Goiter? PAST SURGICAL HISTORY Procedure Laterality Date CARPAL TUNNEL DELIVERY ONLY 1998 AND 2000 , low cervical ENDOSEE TUBING FOR DEVICE 12/24/2017 with EMB GASTRIC BYPASS-MORBID OBESITY 04/06/2017 gastric sleeve HYSTEROSCOPY ENDOMETRIAL ABLATION 02/04/2018 [place] PAST SURGICAL HISTORY OF NAIL EVERSION TONSILLECTOMY PRIMARY/SECONDARY Tonsillectomy TUBAL LIGATION, Current Outpatient Medications Medication Sig prednisoLONE acetate (PRED FORTE) 1 % ophthalmic suspension 1 drop two times a day. prednisoLONE sodium phosphate (ORAPRED) 15 mg/5 mL (3 mg/mL) oral liquid Take 20 mL by mouth once daily. Start wiith onset of swelling. Repeat in 24 hours if not resolved hydrOXYchloroQUINE (PLAQUENIL) 200 mg tablet Take 1 tablet by mouth two times a day. clopidogrel (PLAVIX) 75 mg tablet Take 75 mg by mouth once daily. predniSONE (DELTASONE) 10 mg tablet Take 5 mg by mouth as needed. cyanocobalamin (VITAMIN B-12) 500 mcg tab tab(s) WE desonide (DESOWEN) 0.05 % ointment Apply to affected area two times a day. albuterol HFA (PROAIR HFA) 90 mcg/actuation inhaler Inhale 2 Puffs as instructed every 4 hours as needed for Wheezing/Shortness of Breath. (Patient not taking: Reported on 07/18/2019) biotin 5,000 mcg ODT DAILY (Patient not taking: Reported on 10/07/2024) calcium citrate (CALCITRATE) 200 mg (950 mg) tab TWICE A DAY (Patient not taking: Reported on 10/07/2024) Cholecalciferol, Vitamin D3, 2,000 unit cap TWICE A DAY (Patient not taking: Reported on 10/07/2024) ferrous sulfate 325 mg (65 mg iron) tablet Take 1 tablet by mouth twice daily. (Patient not taking: Reported on 10/07/2024) No current facility-administered medications for this visit. ALLERGIES Allergen Reactions Ibuprofen Shortness of Breath but able to take Aleve PHYSICAL EXAM: BP 140/82 (BP Site: Left Arm, BP Position: Sitting, BP Cuff Size: Large Adult) Pulse 89 Temp 36.6 ?C (97.8 ?F) Resp 18 Wt 121.6 kg (268 lb) LMP 02/25/2018 SpO2 97% BMI 45.19 kg/m? GENERAL: alert, oriented, comfortable EYES: non icteric sclera EARS: external ears normal NOSE: no audible congestion CHEST/LUNGS: respirations easy and regular Phone pictures: From first episode after [employer], flushed face with chemosis bilaterally, generalized facial plethora, enlarged tongue, no discrete angioedema of lips While intubated, facial fullness + enlarged tongue, no discrete angioedema of lips DATA/DIAGNOSTICS: I personally reviewed and interpreted relevant prior results, notable as below: CBC 01/30-02/09 notable for lympholeukocytosis peak of 18 wit left shift, no eosinophilia on admission, CMPs unremarkable 02/01/24 IgE to cod, corn, cow's milk, egg white, peanut, scallop (more content not included)... Normal [facility] ALGN RESP DISEASE PROF REG 5 on 01-04-2025 A. alternata IgE Qn (S) <0.35 Normal <0.35 [facility] Comment on above: Order Comment: Speci men Type: BLOOD SPECIMEN Ordering Facility: [facility] Address: [address] [place] [address] Performed By: #### 3 016-3, 4498-2, 40112-0, 3024-7 #### [facility] CLIA [id number] [address] [place] [address] [place] A. alternata IgE RAST class (S) Normal [facility] Comment on above: Order Comment: Murrayi jacqui Type: BLOOD SPECIMEN Ordering Facility: [facility] Address: [address] [place] [address] Result Comment: Eulogio rgen class is no longer reported Performed By: #### 3 016-3, 4498-2, 69429-0, 3023-7 #### [facility] CLIA [id number] [address] [place] [address] [place] A. fumigatus IgE Qn (S) <0.35 Normal <0.35 [facility] Comment on above: Order Comment: Speci men Type: BLOOD SPECIMEN Ordering Facility: [facility] Address: [address] [place] [address] Performed By: #### 3 016-3, 4498-2, 65459-1, 3023-7 #### [facility] CLIA [id number] [address] [place] [address] [place] A. fumigatus IgE RAST class (S) Normal [facility] Comment on above: Order Comment: Speci men Type: BLOOD SPECIMEN Ordering Facility: [facility] Address: [address] [place] [address] Result Comment: Eulogio rgen class is no longer reported Performed By: #### 3 016-3, 4498-2, 55493-3, 7 #### [facility] CLIA [id number] [address] [place] [address] [place] Mozambican house dust mite IgE Qn (S) <0.35 Normal <0.35 [facility] Comment on above: Order Comment: Speci men Type: BLOOD SPECIMEN Ordering Facility: [facility] Address: [address] [place] [address] Performed By: #### 3 016-3, 4498-2, 40674-8, 7 #### [facility] CLIA [id number] [address] [place] [address] [place] Mozambican house dust mite IgE RAST class (S) Normal [facility] Comment on above: Order Comment: Speci men Type: BLOOD SPECIMEN Ordering Facility: [facility] Address: [address] [place] [address] Result Comment: Eulogio rgen class is no longer reported Performed By: #### 3 016-3, 4498-2, 20399-9, 7 #### [facility] CLIA [id number] [address] [place] [address] [place] Bermuda grass IgE Qn (S) <0.35 Normal <0.35 [facility] Comment on above: Order Comment: Speci men Type: BLOOD SPECIMEN Ordering Facility: [facility] Address: [address] [place] [address] Performed By: #### 3 016-3, 4498-2, 93078-6, 7 #### [facility] CLIA [id number] [address] [place] [address] [place] Bermuda grass IgE RAST class (S) Normal [facility] Comment on above: Order Comment: Speci men Type: BLOOD SPECIMEN Ordering Facility: [facility] Address: [address] [place] [address] Result Comment: Eulogio rgen class is no longer reported Performed By: #### 3 016-3, 4498-2, 97300-1, 7 #### [facility] CLIA [id number] [address] [place] [address] [place] Boxelder IgE Qn (S) <0.35 Normal <0.35 [facility] Comment on above: Order Comment: Speci men Type: BLOOD SPECIMEN Ordering Facility: [facility] Address: [address] [place] [address] Performed By: #### 3 016-3, 4498-2, 77533-0, 7 #### [facility] CLIA [id number] [address] [place] [address] [place] Boxelder IgE RAST class (S) Normal [facility] Comment on above: Order Comment: Speci men Type: BLOOD SPECIMEN Ordering Facility: [facility] Address: [address] [place] [address] Result Comment: Eulogio rgen class is no longer reported Performed By: #### 3 016-3, 4498-2, 72145-2, 7 #### [facility] CLIA [id number] [address] [place] [address] [place] C. herbarum IgE Qn (S) <0.35 Normal <0.35 [facility] Comment on above: Order Comment: Speci men Type: BLOOD SPECIMEN Ordering Facility: [facility] Address: [address] [place] [address] Performed By: #### 3 016-3, 4498-2, 15002-5, 3027 #### [facility] CLIA [id number] [address] [place] [address] [place] C. herbarum IgE RAST class (S) Normal [facility] Comment on above: Order Comment: Speci men Type: BLOOD SPECIMEN Ordering Facility: [facility] Address: [address] [place] [address] Result Comment: Eulogio rgen class is no longer reported Performed By: #### 3 016-3, 4498-2, 91466-8, 3027 #### [facility] CLIA [id number] [address] [place] [address] [place] Cat dander IgE Qn (S) <0.35 Normal <0.35 [facility] Comment on above: Order Comment: Speci men Type: BLOOD SPECIMEN Ordering Facility: [facility] Address: [address] [place] [address] Performed By: #### 3 016-3, 4498-2, 58627-0, 3027 #### [facility] CLIA [id number] [address] [place] [address] [place] Cat dander IgE RAST class (S) Normal [facility] Comment on above: Order Comment: Speci men Type: BLOOD SPECIMEN Ordering Facility: [facility] Address: [address] [place] [address] Result Comment: Eulogio rgen class is no longer reported Performed By: #### 3 016-3, 4498-2, 35418-7, 3027 #### [facility] CLIA [id number] [address] [place] [address] [place] Cocklebur IgE Qn (S) 3.40 kU/l High <0.35 [facility] Comment on above: Order Comment: Speci men Type: BLOOD SPECIMEN Ordering Facility: [facility] Address: [address] [place] [address] Performed By: #### 3 016-3, 4498-2, 32497-2, 302-7 #### [facility] CLIA [id number] [address] [place] [address] [place] Cocklebur IgE RAST class (S) Normal [facility] Comment on above: Order Comment: Speci men Type: BLOOD SPECIMEN Ordering Facility: [facility] Address: [address] [place] [address] Result Comment: Eulogio rgen class is no longer reported Performed By: #### 3 016-3, 4498-2, 80156-2, 7 #### [facility] CLIA [id number] [address] [place] [address] [place] Cockroach IgE Qn (S) <0.35 Normal <0.35 [facility] Comment on above: Order Comment: Speci men Type: BLOOD SPECIMEN Ordering Facility: [facility] Address: [address] [place] [address] Performed By: #### 3 016-3, 4498-2, 95475-6, 7 #### [facility] CLIA [id number] [address] [place] [address] [place] Cockroach IgE RAST class (S) Normal [facility] Comment on above: Order Comment: Speci men Type: BLOOD SPECIMEN Ordering Facility: [facility] Address: [address] [place] [address] Result Comment: Eulogio rgen class is no longer reported Performed By: #### 3 016-3, 4498-2, 41594-0, 302-7 #### [facility] CLIA [id number] [address] [place] [address] [place] Common Pigweed IgE Qn (S) <0.35 Normal <0.35 [facility] Comment on above: Order Comment: Speci men Type: BLOOD SPECIMEN Ordering Facility: [facility] Address: [address] [place] [address] Performed By: #### 3 016-3, 4498-2, 98680-7, 3027 #### [facility] CLIA [id number] [address] [place] [address] [place] Common Pigweed IgE RAST class (S) Normal [facility] Comment on above: Order Comment: Speci men Type: BLOOD SPECIMEN Ordering Facility: [facility] Address: [address] [place] [address] Result Comment: Eulogio rgen class is no longer reported Performed By: #### 3 016-3, 4498-2, 58794-6, 3027 #### [facility] CLIA [id number] [address] [place] [address] [place] Common Ragweed IgE Qn (S) 8.08 kU/l High <0.35 [facility] Comment on above: Order Comment: Speci men Type: BLOOD SPECIMEN Ordering Facility: [facility] Address: [address] [place] [address] Performed By: #### 3 016-3, 4498-2, 96612-2, 3027 #### [facility] CLIA [id number] [address] [place] [address] [place] Common Ragweed IgE RAST class (S) Normal [facility] Comment on above: Order Comment: Speci men Type: BLOOD SPECIMEN Ordering Facility: [facility] Address: [address] [place] [address] Result Comment: Eulogio rgen class is no longer reported Performed By: #### 3 016-3, 4498-2, 01142-9, 3027 #### [facility] CLIA [id number] [address] [place] [address] [place] Archer IgE Qn (S) <0.35 Normal <0.35 [facility] Comment on above: Order Comment: Speci men Type: BLOOD SPECIMEN Ordering Facility: [facility] Address: [address] [place] [address] Performed By: #### 3 016-3, 4498-2, 96583-7, 7 #### [facility] CLIA [id number] [address] [place] [address] [place] Archer IgE RAST class (S) Normal [facility] Comment on above: Order Comment: Speci men Type: BLOOD SPECIMEN Ordering Facility: [facility] Address: [address] [place] [address] Result Comment: Eulogio rgen class is no longer reported Performed By: #### 3 016-3, 4498-2, 55436-1, 7 #### [facility] CLIA [id number] [address] [place] [address] [place] Dog dander IgE Qn (S) <0.35 Normal <0.35 [facility] Comment on above: Order Comment: Speci men Type: BLOOD SPECIMEN Ordering Facility: [facility] Address: [address] [place] [address] Performed By: #### 3 016-3, 4498-2, 88864-3, 3023-08 #### [facility] CLIA [id number] [address] [place] [address] [place] Dog dander IgE RAST class (S) Normal [facility] Comment on above: Order Comment: Speci men Type: BLOOD SPECIMEN Ordering Facility: [facility] Address: [address] [place] [address] Result Comment: Eulogio rgen class is no longer reported Performed By: #### 3 016-3, 4498-2, 65724-7, 3023-08 #### [facility] CLIA [id number] [address] [place] [address] [place] Venezuelan plantain IgE Qn (S) <0.35 Normal <0.35 [facility] Comment on above: Order Comment: Speci men Type: BLOOD SPECIMEN Ordering Facility: [facility] Address: [address] [place] [address] Performed By: #### 3 016-3, 4498-2, 38799-0, 3023-08 #### [facility] CLIA [id number] [address] [place] [address] [place] Venezuelan plantain IgE RAST class (S) Normal [facility] Comment on above: Order Comment: Speci men Type: BLOOD SPECIMEN Ordering Facility: [facility] Address: [address] [place] [address] Result Comment: Eulogio rgen class is no longer reported Performed By: #### 3 016-3, 4498-2, 14598-9, 3023-08 #### [facility] CLIA [id number] [address] [place] [address] [place] house dust mite IgE Qn (S) <0.35 Normal <0.35 [facility] Comment on above: Order Comment: Speci men Type: BLOOD SPECIMEN Ordering Facility: [facility] Address: [address] [place] [address] Performed By: #### 3 016-3, 4498-2, 69020-2, 3023-08 #### [facility] CLIA [id number] [address] [place] [address] [place] house dust mite IgE RAST class (S) Normal [facility] Comment on above: Order Comment: Speci men Type: BLOOD SPECIMEN Ordering Facility: [facility] Address: [address] [place] [address] Result Comment: Eulogio rgen class is no longer reported Performed By: #### 3 016-3, 4498-2, 35802-3, 3023-08 #### [facility] CLIA [id number] [address] [place] [address] [place] Goosefoot IgE Qn (S) <0.35 Normal <0.35 [facility] Comment on above: Order Comment: Speci men Type: BLOOD SPECIMEN Ordering Facility: [facility] Address: [address] [place] [address] Performed By: #### 3 016-3, 4498-2, 67877-9, 7 #### [facility] CLIA [id number] [address] [place] [address] [place] Goosefoot IgE RAST class (S) Normal [facility] Comment on above: Order Comment: Speci men Type: BLOOD SPECIMEN Ordering Facility: [facility] Address: [address] [place] [address] Result Comment: Eulogio rgen class is no longer reported Performed By: #### 3 016-3, 4498-2, 46615-3, 7 #### [facility] CLIA [id number] [address] [place] [address] [place] Jose grass smut IgE Qn (S) 0.44 kU/l High <0.35 [facility] Comment on above: Order Comment: Speci men Type: BLOOD SPECIMEN Ordering Facility: [facility] Address: [address] [place] [address] Performed By: #### 3 016-3, 4498-2, 41123-2, 7 #### [facility] CLIA [id number] [address] [place] [address] [place] Jose grass smut IgE RAST class (S) Normal [facility] Comment on above: Order Comment: Speci men Type: BLOOD SPECIMEN Ordering Facility: [facility] Address: [address] [place] [address] Result Comment: Eulogio rgen class is no longer reported Performed By: #### 3 016-3, 4498-2, 69004-8, 3023-08 #### [facility] CLIA [id number] [address] [place] [address] [place] Guy Plane IgE Qn (S) <0.35 Normal <0.35 [facility] Comment on above: Order Comment: Speci men Type: BLOOD SPECIMEN Ordering Facility: [facility] Address: [address] [place] [address] Performed By: #### 3 016-3, 4498-2, 33335-0, 7 #### [facility] CLIA [id number] [address] [place] [address] [place] Guy Plane IgE RAST class (S) Normal [facility] Comment on above: Order Comment: Speci men Type: BLOOD SPECIMEN Ordering Facility: [facility] Address: [address] [place] [address] Result Comment: Eulogio rgen class is no longer reported Performed By: #### 3 016-3, 4498-2, 19561-2, 7 #### [facility] CLIA [id number] [address] [place] [address] [place] Waggoner Elder IgE Qn (S) 1.52 kU/l High <0.35 [facility] Comment on above: Order Comment: Speci men Type: BLOOD SPECIMEN Ordering Facility: [facility] Address: [address] [place] [address] Performed By: #### 3 016-3, 4498-2, 92027-9, 7 #### [facility] CLIA [id number] [address] [place] [address] [place] Waggoner Elder IgE RAST class (S) Normal [facility] Comment on above: Order Comment: Speci men Type: BLOOD SPECIMEN Ordering Facility: [facility] Address: [address] [place] [address] Result Comment: Euloigo rgen class is no longer reported Performed By: #### 3 016-3, 4498-2, 10779-7, 3023-7 #### [facility] CLIA [id number] [address] [place] [address] [place] Mouse urine proteins IgE Qn (S) <0.35 Normal <0.35 [facility] Comment on above: Order Comment: Speci men Type: BLOOD SPECIMEN Ordering Facility: [facility] Address: [address] [place] [address] Performed By: #### 3 016-3, 4498-2, 68293-7, 302-7 #### [facility] CLIA [id number] [address] [place] [address] [place] Mouse urine proteins IgE RAST class (S) Normal [facility] Comment on above: Order Comment: Speci men Type: BLOOD SPECIMEN Ordering Facility: [facility] Address: [address] [place] [address] Result Comment: Eulogio rgen class is no longer reported Performed By: #### 3 016-3, 4498-2, 68239-8, 3023-7 #### [facility] CLIA [id number] [address] [place] [address] [place] Pecan or [place] Tree IgE Qn (S) 0.98 kU/l High <0.35 [facility] Comment on above: Order Comment: Speci men Type: BLOOD SPECIMEN Ordering Facility: [facility] Address: [address] [place] [address] Performed By: #### 3 016-3, 4498-2, 46087-4, 7 #### [facility] CLIA [id number] [address] [place] [address] [place] Pecan or [place] Tree IgE RAST class (S) Normal [facility] Comment on above: Order Comment: Speci men Type: BLOOD SPECIMEN Ordering Facility: [facility] Address: [address] [place] [address] Result Comment: Eulogio rgen class is no longer reported Performed By: #### 3 016-3, 4498-2, 37871-5, 7 #### [facility] CLIA [id number] [address] [place] [address] [place] Sheep Albee IgE Qn (S) <0.35 Normal <0.35 [facility] Comment on above: Order Comment: Speci men Type: BLOOD SPECIMEN Ordering Facility: [facility] Address: [address] [place] [address] Performed By: #### 3 016-3, 4498-2, 79342-7, 7 #### [facility] CLIA [id number] [address] [place] [address] [place] Sheep Albee IgE RAST class (S) Normal [facility] Comment on above: Order Comment: Speci men Type: BLOOD SPECIMEN Ordering Facility: [facility] Address: [address] [place] [address] Result Comment: Eulogio rgen class is no longer reported Performed By: #### 3 016-3, 4498-2, 92689-4, 7 #### [facility] CLIA [id number] [address] [place] [address] [place] Silver Birch IgE Qn (S) <0.35 Normal <0.35 [facility] Comment on above: Order Comment: Speci men Type: BLOOD SPECIMEN Ordering Facility: [facility] Address: [address] [place] [address] Performed By: #### 3 016-3, 4498-2, 14762-5, 7 #### [facility] CLIA [id number] [address] [place] [address] [place] Silver Birch IgE RAST class (S) Normal [facility] Comment on above: Order Comment: Speci men Type: BLOOD SPECIMEN Ordering Facility: [facility] Address: [address] [place] [address] Result Comment: Eulogio rgen class is no longer reported Performed By: #### 3 016-3, 4498-2, 28008-1, 7 #### [facility] CLIA [id number] [address] [place] [address] [place] Giovanny IgE Qn (S) 1.01 kU/l High <0.35 [facility] Comment on above: Order Comment: Speci men Type: BLOOD SPECIMEN Ordering Facility: [facility] Address: [address] [place] [address] Performed By: #### 3 016-3, 4498-2, 51873-0, 3023-08 #### [facility] CLIA [id number] [address] [place] [address] [place] Giovanny IgE RAST class (S) Normal [facility] Comment on above: Order Comment: Speci men Type: BLOOD SPECIMEN Ordering Facility: [facility] Address: [address] [place] [address] Result Comment: Eulogio rgen class is no longer reported Performed By: #### 3 016-3, 4498-2, 77332-0, 3023-08 #### [facility] CLIA [id number] [address] [place] [address] [place] White Kosta IgE Qn (S) <0.35 Normal <0.35 [facility] Comment on above: Order Comment: Speci men Type: BLOOD SPECIMEN Ordering Facility: [facility] Address: [address] [place] [address] Performed By: #### 3 016-3, 4498-2, , 3023-08 #### [facility] CLIA [id number] [address] [place] [address] [place] White Kosta IgE RAST class (S) Normal [facility] Comment on above: Order Comment: Speci men Type: BLOOD SPECIMEN Ordering Facility: [facility] Address: [address] [place] [address] Result Comment: Eulogio rgen class is no longer reported Performed By: #### 3 016-3, 4498-2, 19991-4, 3023-08 #### [facility] CLIA [id number] [address] [place] [address] [place] White Elm IgE Qn (S) <0.35 Normal <0.35 [facility] Comment on above: Order Comment: Speci men Type: BLOOD SPECIMEN Ordering Facility: [facility] Address: [address] [place] [address] Performed By: #### 3 016-3, 4498-2, 30250-3, 7 #### [facility] CLIA [id number] [address] [place] [address] [place] White Elm IgE RAST class (S) Normal [facility] Comment on above: Order Comment: Speci men Type: BLOOD SPECIMEN Ordering Facility: [facility] Address: [address] [place] [address] Result Comment: Eulogio rgen class is no longer reported Performed By: #### 3 016-3, 4498-2, 11199-0, 7 #### [facility] CLIA [id number] [address] [place] [address] [place] White mulberry IgE Qn (S) <0.35 Normal <0.35 [facility] Comment on above: Order Comment: Speci men Type: BLOOD SPECIMEN Ordering Facility: [facility] Address: [address] [place] [address] Performed By: #### 3 016-3, 4498-2, 26158-4, 3027 #### [facility] CLIA [id number] [address] [place] [address] [place] White mulberry IgE RAST class (S) Normal [facility] Comment on above: Order Comment: Speci men Type: BLOOD SPECIMEN Ordering Facility: [facility] Address: [address] [place] [address] Result Comment: Eulogio rgen class is no longer reported Performed By: #### 3 016-3, 4498-2, 51894-8, 3027 #### [facility] CLIA [id number] [address] [place] [address] [place] Pryor IgE Qn (S) <0.35 Normal <0.35 [facility] Comment on above: Order Comment: Speci men Type: BLOOD SPECIMEN Ordering Facility: [facility] Address: [address] [place] [address] Performed By: #### 3 016-3, 4498-2, 45225-6, 302-7 #### [facility] CLIA [id number] [address] [place] [address] [place] Pryor IgE RAST class (S) Normal [facility] Comment on above: Order Comment: Speci men Type: BLOOD SPECIMEN Ordering Facility: [facility] Address: [address] [place] [address] Result Comment: Eulogio rgen class is no longer reported Performed By: #### 3 016-3, 4498-2, 30137-8, 7 #### [facility] CLIA [id number] [address] [place] [address] [place] ALLERGEN, ALPHA-GAL COMPONEN T IGEon 01-04-2025 ALPHA-GAL IGE <0.10 Normal <0.10 [facility] Comment on above: Order Comment: Speci men Type: BLOOD SPECIMEN Ordering Facility: [facility] Address: [address] [place] [address] Performed By: #### 3 016-3, 4498-2, 25062-8, 7 #### [facility] CLIA [id number] [address] [place] [address] [place] ALLERGEN, DUST MITE COMPONEN TS IGEon 01-04-2025 house dust mite recombinant (rDer p) 10 IgE Qn (S) <0.10 Normal <0.10 [facility] Comment on above: Order Comment: Speci men Type: BLOOD SPECIMEN Ordering Facility: [facility] Address: [address] [place] [address] Performed By: #### 3 016-3, 4498-2, 14512-4, 7 #### [facility] CLIA [id number] [address] [place] [address] [place] house dust mite recombinant (rDer p) 2 IgE Qn (S) <0.10 Normal <0.10 [facility] Comment on above: Order Comment: Speci men Type: BLOOD SPECIMEN Ordering Facility: [facility] Address: [address] [place] [address] Performed By: #### 3 016-3, 4498-2, 18074-1, 7 #### [facility] CLIA [id number] [address] [place] [address] [place] RDER P1 <0.10 Normal <0.10 [facility] Comment on above: Order Comment: Speci men Type: BLOOD SPECIMEN Ordering Facility: [facility] Address: [address] [place] [address] Performed By: #### 3 016-3, 4498-2, 54168-6, 3024-7 #### [facility] CLIA [id number] [address] [place] [address] [place] C1 ESTERASE INHIB FUon 01-04 C1 ESTERASE INHIBITOR FUNCTION 108 % Normal >=41 [facility] Comment on above: Order Comment: Speci men Type: BLOOD SPECIMEN Ordering Facility: [facility] Address: [address] [place] [address] Result Comment: The concentration of functional C1 esterase inhibitor (C1-INH) is reported as the percentage of the mean level in normal specimens. Concentrations greater than or equal to 68 percent mean normal are considered normal. INTERPRETIVE INFORMATION: X-1-Uwxrogpy Inhib. Functional 68% or greater ........ Normal 41% - 67% ............. Indeterminate 40% or less ........... Abnormal Performed By: [facility] [address] [place] [address] General Counselor: Zafar Ramirez MD, PhD CLIA Number: [id number] Performed By: #### 3 016-3, 4498-2, 24032-8, 3024-7 #### [facility] CLIA [id number] [address] [place] [address] [place] C1 ESTERASE INHIBITon 2024 C1 ESTERASE INHIBIT 40 mg/dL High 21-38 [facility] Comment on above: Order Comment: Speci men Type: BLOOD SPECIMEN Ordering Facility: [facility] Address: [address] [place] [address] Result Comment: Perf ormed By: [facility] [address] [place] [id number] General Counselor: Zafar Ramirez MD, PhD CLIA Number: [id number] Performed By: #### 3 016-3, 4498-2, 78976-5, 7 #### [facility] CLIA [id number] [address] [place] [address] [place] C4 SerPl-mCncon 01-04-2025 Complement C4 [Mass/Vol] 32 mg/dL Normal 13-46 [facility] Comment on above: Order Comment: Speci men Type: BLOOD SPECIMEN Ordering Facility: [facility] Address: [address] [place] [address] Performed By: #### 3 016-3, 4498-2, 35080-1, 3023-08 #### [facility] CLIA [id number] [address] [place] [address] [place] CBC W Auto Differential pane l (Bld)on 01-04-2025 Basophils (Bld) [#/Vol] 0.08 10*3/uL Normal <0.11 [facility] Comment on above: Order Comment: Speci men Type: BLOOD SPECIMEN Ordering Facility: [facility] Address: [address] [place] [address] Performed By: #### 3 016-3, 4498-2, 59917-4, 7 #### [facility] CLIA [id number] [address] [place] [address] [place] Basophils/100 WBC (Bld) 0.9 % Normal [facility] Comment on above: Order Comment: Speci men Type: BLOOD SPECIMEN Ordering Facility: [facility] Address: [address] [place] [address] Performed By: #### 3 016-3, 4498-2, 10631-9, 7 #### [facility] CLIA [id number] [address] [place] [address] [place] Differential cell count method Nom (Bld) Auto Normal [facility] Comment on above: Order Comment: Speci men Type: BLOOD SPECIMEN Ordering Facility: [facility] Address: [address] [place] [address] Performed By: #### 3 016-3, 4498-2, 95102-6, 302-7 #### [facility] CLIA [id number] [address] [place] [address] [place] Eosinophils (Bld) [#/Vol] 0.13 10*3/uL Normal <0.46 [facility] Comment on above: Order Comment: Speci men Type: BLOOD SPECIMEN Ordering Facility: [facility] Address: [address] [place] [address] Performed By: #### 3 016-3, 4498-2, 88074-7, 3027 #### [facility] CLIA [id number] [address] [place] [address] [place] Eosinophils/100 WBC (Bld) 1.4 % Normal [facility] Comment on above: Order Comment: Speci men Type: BLOOD SPECIMEN Ordering Facility: [facility] Address: [address] [place] [address] Performed By: #### 3 016-3, 4498-2, 91584-6, 7 #### [facility] CLIA [id number] [address] [place] [address] [place] Erythrocyte distribution width (RBC) [Ratio] 13.7 % Normal 11.5-15.0 [facility] Comment on above: Order Comment: Speci men Type: BLOOD SPECIMEN Ordering Facility: [facility] Address: [address] [place] [address] Performed By: #### 3 016-3, 4498-2, 54593-6, 7 #### [facility] CLIA [id number] [address] [place] [address] [place] Hematocrit (Bld) [Volume fraction] 37.7 % Normal 36.0-46.0 [facility] Comment on above: Order Comment: Speci men Type: BLOOD SPECIMEN Ordering Facility: [facility] Address: [address] [place] [address] Performed By: #### 3 016-3, 4498-2, 72037-8, 302-7 #### [facility] CLIA [id number] [address] [place] [address] [place] Hemoglobin (Bld) [Mass/Vol] 12.3 g/dL Normal 11.5-15.5 [facility] Comment on above: Order Comment: Speci men Type: BLOOD SPECIMEN Ordering Facility: [facility] Address: [address] [place] [address] Performed By: #### 3 016-3, 4498-2, 29840-9, 3023-7 #### [facility] CLIA [id number] [address] [place] [address] [place] Immature granulocytes (Bld) [#/Vol] 10*3/uL Normal <0.10 [facility] Comment on above: Order Comment: Speci men Type: BLOOD SPECIMEN Ordering Facility: [facility] Address: [address] [place] [address] Performed By: #### 3 016-3, 4498-2, 57873-4, 3023-7 #### [facility] CLIA [id number] [address] [place] [address] [place] Immature granulocytes/100 WBC (Bld) 0.2 % Normal [facility] Comment on above: Order Comment: Speci men Type: BLOOD SPECIMEN Ordering Facility: [facility] Address: [address] [place] [address] Performed By: #### 3 016-3, 4498-2, 72652-3, 3023-7 #### [facility] CLIA [id number] [address] [place] [address] [place] Lymphocytes (Bld) [#/Vol] 2.60 10*3/uL Normal 1.00-4.0 0 [facility] Comment on above: Order Comment: Speci men Type: BLOOD SPECIMEN Ordering Facility: [facility] Address: [address] [place] [address] Performed By: #### 3 016-3, 4498-2, 29467-9, 7 #### [facility] CLIA [id number] [address] [place] [address] [place] Lymphocytes/100 WBC (Bld) 28.7 % Normal [facility] Comment on above: Order Comment: Speci men Type: BLOOD SPECIMEN Ordering Facility: [facility] Address: [address] [place] [address] Performed By: #### 3 016-3, 4498-2, 12909-6, 7 #### [facility] CLIA [id number] [address] [place] [address] [place] MCH (RBC) [Entitic mass] 27.7 pg Normal 26.0-34.0 [facility] Comment on above: Order Comment: Speci men Type: BLOOD SPECIMEN Ordering Facility: [facility] Address: [address] [place] [address] Performed By: #### 3 016-3, 4498-2, 09857-5, 7 #### [facility] CLIA [id number] [address] [place] [address] [place] MCHC (RBC) [Mass/Vol] 32.6 g/dL Normal 30.5-36.0 [facility] Comment on above: Order Comment: Speci men Type: BLOOD SPECIMEN Ordering Facility: [facility] Address: [address] [place] [address] Performed By: #### 3 016-3, 4498-2, 45292-6, 7 #### [facility] CLIA [id number] [address] [place] [address] [place] MCV (RBC) [Entitic vol] 84.9 fL Normal 80.0-100.0 [facility] Comment on above: Order Comment: Speci men Type: BLOOD SPECIMEN Ordering Facility: [facility] Address: [address] [place] [address] Performed By: #### 3 016-3, 4498-2, 43096-8, 7 #### [facility] CLIA [id number] [address] [place] [address] [place] Monocytes (Bld) [#/Vol] 0.56 10*3/uL Normal <0.87 [facility] Comment on above: Order Comment: Speci men Type: BLOOD SPECIMEN Ordering Facility: [facility] Address: [address] [place] [address] Performed By: #### 3 016-3, 4498-2, 88187-2, 3027 #### [facility] CLIA [id number] [address] [place] [address] [place] Monocytes/100 WBC (Bld) 6.2 % Normal [facility] Comment on above: Order Comment: Speci men Type: BLOOD SPECIMEN Ordering Facility: [facility] Address: [address] [place] [address] Performed By: #### 3 016-3, 4498-2, 12887-8, 3027 #### [facility] CLIA [id number] [address] [place] [address] [place] Neutrophils (Bld) [#/Vol] 5.68 10*3/uL Normal 1.45-7.5 0 [facility] Comment on above: Order Comment: Speci men Type: BLOOD SPECIMEN Ordering Facility: [facility] Address: [address] [place] [address] Performed By: #### 3 016-3, 4498-2, 92100-3, 3027 #### [facility] CLIA [id number] [address] [place] [address] [place] Neutrophils/100 WBC (Bld) 62.6 % Normal [facility] Comment on above: Order Comment: Speci men Type: BLOOD SPECIMEN Ordering Facility: [facility] Address: [address] [place] [address] Performed By: #### 3 016-3, 4498-2, 74122-0, 3024-7 #### [facility] CLIA [id number] [address] [place], [place] [address] [place] Nucleated RBC (Bld) [#/Vol] 10*3/uL Normal <0.01 [facility] Comment on above: Order Comment: Speci men Type: BLOOD SPECIMEN Ordering Facility: [facility] Address: [address] [place] [address] Performed By: #### 3 016-3, 4498-2, 63460-6, 7 #### [facility] CLIA [id number] [address] [place] [address] [place] Nucleated RBC/100 WBC (Bld) [Ratio] 0.0 /100 WBC Normal [facility] Comment on above: Order Comment: Speci men Type: BLOOD SPECIMEN Ordering Facility: [facility] Address: [address] [place] [address] Performed By: #### 3 016-3, 4498-2, 43596-7, 7 #### [facility] CLIA [id number] [address] [place] [address] [place] Platelet mean volume (Bld) [Entitic vol] 10.1 fL Normal 9.0-12.7 [facility] Comment on above: Order Comment: Speci men Type: BLOOD SPECIMEN Ordering Facility: [facility] Address: [address] [place] [address] Performed By: #### 3 016-3, 4498-2, 88938-2, 7 #### [facility] CLIA [id number] [address] [place] [address] [place] Platelets (Bld) [#/Vol] 287 10*3/uL Normal 150-400 [facility] Comment on above: Order Comment: Speci men Type: BLOOD SPECIMEN Ordering Facility: [facility] Address: [address] [place] [address] Performed By: #### 3 016-3, 4498-2, 38967-0, 7 #### [facility] CLIA [id number] [address] [place] [address] [place] RBC (Bld) [#/Vol] 4.44 10*6/uL Normal 3.90-5.20 [facility] Comment on above: Order Comment: Speci men Type: BLOOD SPECIMEN Ordering Facility: [facility] Address: [address] [place] [address] Performed By: #### 3 016-3, 4498-2, 88527-0, 3024-7 #### [facility] CLIA [id number] [address] [place] [address] [place] WBC (Bld) [#/Vol] 9.07 10*3/uL Normal 3.70-11.00 [facility] Comment on above: Order Comment: Speci men Type: BLOOD SPECIMEN Ordering Facility: [facility] Address: [address] [place] [address] Performed By: #### 3 016-3, 4498-2, 32058-9, 3024-7 #### [facility] CLIA [id number] [address] [place] [address] [place] CRP SerPl-ncon 01-04-2025 CRP [Mass/Vol] 0.8 mg/dL Normal <0.9 [facility] Comment on above: Order Comment: Speci men Type: BLOOD SPECIMEN Ordering Facility: [facility] Address: [address] [place] [address] Performed By: #### 3 016-3, 4498-2, 57236-5, 3024-7 #### [facility] CLIA [id number] [address] [place] [address] [place] Comprehensive metabolic 2000 panelon 01-04-2025 Albumin [Mass/Vol] 4.3 g/dL Normal 3.9-4.9 [facility] Comment on above: Order Comment: Speci men Type: BLOOD SPECIMEN Ordering Facility: [facility] Address: [address] [place] [address] Performed By: #### 3 016-3, 4498-2, 28782-2, 3024-7 #### [facility] CLIA [id number] [address] [place] [address] [place] ALP [Catalytic activity/Vol] 106 U/L Normal 34-123 [facility] Comment on above: Order Comment: Speci men Type: BLOOD SPECIMEN Ordering Facility: [facility] Address: [address] [place] [address] Performed By: #### 3 016-3, 4498-2, 94839-4, 3024-7 #### [facility] CLIA [id number] [address] [place] [address] [place] ALT [Catalytic activity/Vol] 20 U/L Normal 7-38 [facility] Comment on above: Order Comment: Speci men Type: BLOOD SPECIMEN Ordering Facility: [facility] Address: [address] [place] [address] Performed By: #### 3 016-3, 4498-2, 68404-6, 3024-7 #### [facility] CLIA [id number] [address] [place] [address] [place] Anion gap [Moles/Vol] 13 mmol/L Normal 8-15 [facility] Comment on above: Order Comment: Speci men Type: BLOOD SPECIMEN Ordering Facility: [facility] Address: [address] [place] [address] Performed By: #### 3 016-3, 4498-2, 01881-1, 302-7 #### [facility] CLIA [id number] [address] [place] [address] [place] AST [Catalytic activity/Vol] 22 U/L Normal 13-35 [facility] Comment on above: Order Comment: Speci men Type: BLOOD SPECIMEN Ordering Facility: [facility] Address: [address] [place] [address] Performed By: #### 3 016-3, 4498-2, 47897-7, 3024-7 #### [facility] CLIA [id number] [address] [place] [address] [place] Bilirubin [Mass/Vol] 0.3 mg/dL Normal 0.2-1.3 [facility] Comment on above: Order Comment: Speci men Type: BLOOD SPECIMEN Ordering Facility: [facility] Address: [address] [place] [address] Performed By: #### 3 016-3, 4498-2, 56363-9, 7 #### [facility] CLIA [id number] [address] [place] [address] [place] Calcium [Mass/Vol] 10.4 mg/dL High 8.5-10.2 [facility] Comment on above: Order Comment: Speci men Type: BLOOD SPECIMEN Ordering Facility: [facility] Address: [address] [place] [address] Performed By: #### 3 016-3, 4498-2, 63415-9, 7 #### [facility] CLIA [id number] [address] [place] [address] [place] Chloride [Moles/Vol] 106 mmol/L Normal 98-107 [facility] Comment on above: Order Comment: Speci men Type: BLOOD SPECIMEN Ordering Facility: [facility] Address: [address] [place] [address] Performed By: #### 3 016-3, 4498-2, 68551-0, 7 #### [facility] CLIA [id number] [address] [place] [address] [place] CO2 [Moles/Vol] 22 mmol/L Normal 22-30 [facility] Comment on above: Order Comment: Speci men Type: BLOOD SPECIMEN Ordering Facility: [facility] Address: [address] [place] [address] Performed By: #### 3 016-3, 4498-2, 40324-3, 7 #### [facility] CLIA [id number] [address] [place] [address] [place] Creatinine [Mass/Vol] 0.74 mg/dL Normal 0.58-0.96 [facility] Comment on above: Order Comment: Speci men Type: BLOOD SPECIMEN Ordering Facility: [facility] Address: [address] [place] [address] Performed By: #### 3 016-3, 4498-2, 14817-8, 3024-7 #### [facility] CLIA [id number] [address] [place] [address] [place] eGFRcr SerPlBld CKD-EPI 2020 101 mL/min/1.73m??? Normal >=60 [facility] Comment on above: Order Comment: Duran osman Type: BLOOD SPECIMEN Ordering Facility: [facility] Address: [address] [place] [address] Result Comment: Bethanie mated Glomerular Filtration Rate (eGFR) is calculated using the 2020 CKD-EPI creatinine equation. This equation utilizes serum creatinine, sex, and age as parameters. The creatinine assay has traceable calibration to isotope dilution-mass spectrometry. Refer to KDIGO guidelines for clinical interpretation. In patients with unstable renal function, e.g. those with acute kidney injury, the eGFR may not accurately reflect actual GFR. Performed By: #### 3 016-3, 4498-2, 55703-2, 3024-7 #### [facility] CLIA [id number] [address] [place] [address] [place] Glucose [Mass/Vol] 79 mg/dL Normal 74-99 [facility] Comment on above: Order Comment: Duran jacqui Type: BLOOD SPECIMEN Ordering Facility: [facility] Address: [address] [place] [address] Result Comment: The [place] [employer] (ADA) provides guidance for cutoff values for fasting glucose and random glucose. The ADA defines fasting as no caloric intake for at least 8 hours. Fasting plasma glucose results between 100 to 125 mg/dL indicate increased risk for diabetes (prediabetes). Fasting plasma glucose results greater than or equal to 126 mg/dL meet the criteria for diagnosis of diabetes. In the absence of unequivocal hyperglycemia, results should be confirmed by repeat testing. In a patient with classic symptoms of hyperglycemia or hyperglycemic crisis, random plasma glucose results greater than or equal to 200 mg/dL meet the criteria for diagnosis of diabetes. Reference: Standards of Medical Care in Diabetes 2016, [place] [employer]. Diabetes Care. 2016.39(Suppl 1). Performed By: #### 3 016-3, 4498-2, 26673-1, 7 #### [facility] CLIA [id number] [address] [place] [address] [place] Potassium [Moles/Vol] 4.6 mmol/L Normal 3.7-5.1 [facility] Comment on above: Order Comment: Speci men Type: BLOOD SPECIMEN Ordering Facility: [facility] Address: [address] [place] [address] Performed By: #### 3 016-3, 4498-2, 14591-6, 7 #### [facility] CLIA [id number] [address] [place] [address] [place] Protein [Mass/Vol] 7.6 g/dL Normal 6.3-8.0 [facility] Comment on above: Order Comment: Speci men Type: BLOOD SPECIMEN Ordering Facility: [facility] Address: [address] [place] [address] Performed By: #### 3 016-3, 4498-2, 71567-7, 7 #### [facility] CLIA [id number] [address] [place] [address] [place] Sodium [Moles/Vol] 141 mmol/L Normal 136-144 [facility] Comment on above: Order Comment: Speci men Type: BLOOD SPECIMEN Ordering Facility: [facility] Address: [address] [place] [address] Performed By: #### 3 016-3, 4498-2, 67753-0, 7 #### [facility] CLIA [id number] [address] [place] [address] [place] Urea nitrogen [Mass/Vol] 19 mg/dL Normal 7-21 [facility] Comment on above: Order Comment: Speci men Type: BLOOD SPECIMEN Ordering Facility: [facility] Address: [address] [place] [address] Performed By: #### 3 016-3, 4498-2, 44833-8, 3027 #### [facility] CLIA [id number] [address] [place] [address] [place] ESR Westergren method (Bld) [Velocity]on 01-04-2025 ESR (Bld) [Velocity] 36 mm/h High 0-20 [facility] Comment on above: Order Comment: Speci men Type: BLOOD SPECIMEN Ordering Facility: [facility] Address: [address] [place] [address] Performed By: #### 3 016-3, 4498-2, 36311-5, 3027 #### [facility] CLIA [id number] [address] [place] [address] [place] PROTEIN ELECTROPHORESIS SERU M (P)on 01-04-2025 Albumin [Mass/Vol] 4.27 g/dL Normal 3.43-5.41 [facility] Comment on above: Order Comment: Speci men Type: BLOOD SPECIMEN Ordering Facility: [facility] Address: [address] [place] [address] Performed By: #### 3 016-3, 4498-2, 13993-8, 7 #### [facility] CLIA [id number] [address] [place] [address] [place] Alpha 1 globulin Elph [Mass/Vol] 0.25 g/dL Normal 0.18-0.43 [facility] Comment on above: Order Comment: Speci men Type: BLOOD SPECIMEN Ordering Facility: [facility] Address: [address] [place] [address] Performed By: #### 3 016-3, 4498-2, 03093-5, 3027 #### [facility] CLIA [id number] [address] [place] [address] [place] Alpha 2 globulin Elph [Mass/Vol] 0.81 g/dL Normal 0.42-0.98 [facility] Comment on above: Order Comment: Speci men Type: BLOOD SPECIMEN Ordering Facility: [facility] Address: [address] [place] [address] Performed By: #### 3 016-3, 4498-2, 09107-3, 302-7 #### [facility] CLIA [id number] [address] [place] [address] [place] Beta globulin Elph [Mass/Vol] 1.01 g/dL Normal 0.61-1.17 [facility] Comment on above: Order Comment: Speci men Type: BLOOD SPECIMEN Ordering Facility: [facility] Address: [address] [place] [address] Performed By: #### 3 016-3, 4498-2, 41024-2, 302-7 #### [facility] CLIA [id number] [address] [place] [address] [place] Gamma globulin Elph [Mass/Vol] 1.05 g/dL Normal 0.53-1.51 [facility] Comment on above: Order Comment: Speci men Type: BLOOD SPECIMEN Ordering Facility: [facility] Address: [address] [place] [address] Performed By: #### 3 016-3, 4498-2, 57017-4, 7 #### [facility] CLIA [id number] [address] [place] [address] [place] M-PROTEIN LOCATION Normal [facility] Comment on above: Order Comment: Speci men Type: BLOOD SPECIMEN Ordering Facility: [facility] Address: [address] [place] [address] Result Comment: Not Applicable. Performed By: #### 3 016-3, 4498-2, 06386-5, 3023-7 #### [facility] CLIA [id number] [address] [place] [address] [place] Protein Fractions [Interp] No definitive M protein is identified on protein electrophoresis. Normal No definitive M protein is identified on protein electrophor esis. [facility] Comment on above: Order Comment: Speci men Type: BLOOD SPECIMEN Ordering Facility: [facility] Address: [address] [place] [address] Performed By: #### 3 016-3, 4498-2, 98250-4, 3024-7 #### [facility] CLIA [id number] [address] [place] [address] [place] Protein.monoclonal Elph [Mass/Vol] 0.00 g/dL Normal <=0.00 [facility] Comment on above: Order Comment: Speci men Type: BLOOD SPECIMEN Ordering Facility: [facility] Address: [address] [place] [address] Performed By: #### 3 016-3, 4498-2, 63837-0, 3024-7 #### [facility] CLIA [id number] [address] [place] [address] [place] SPE STAFF REVIEW Reviewed by Dr. Jacinta Delgado MD [facility] Comment on above: Order Comment: Speci men Type: BLOOD SPECIMEN Ordering Facility: [facility] Address: [address] [place] [address] Performed By: #### 3 016-3, 4498-2, 04480-5, 3024-7 #### [facility] CLIA [id number] [address] [place] [address] [place] Prot SerPl-mCncon 01-04-2025 Protein [Mass/Vol] 7.4 g/dL Normal 6.3-8.0 [facility] Comment on above: Order Comment: Speci men Type: BLOOD SPECIMEN Ordering Facility: [facility] Address: [address] [place] [address] Performed By: #### 3 016-3, 4498-2, 02399-3, 3024-7 #### [facility] CLIA [id number] [address] [place] [address] [place] Sesame Seed IgE Qnon 025 Sesame Seed IgE Qn (S) <0.35 Normal <0.35 [facility] Comment on above: Order Comment: Speci men Type: BLOOD SPECIMEN Ordering Facility: [facility] Address: [address] [place] [address] Performed By: #### 3 016-3, 4498-2, 23002-7, 3024-7 #### [facility] CLIA [id number] [address] [place] [address] [place] Sesame Seed IgE Qn (S)on Sesame Seed IgE RAST class (S) Normal [facility] Comment on above: Order Comment: Speci men Type: BLOOD SPECIMEN Ordering Facility: [facility] Address: [address] [place] [address] Result Comment: Eulogio rgen class is no longer reported Performed By: #### 3 016-3, 4498-2, 92335-8, 30247 #### [facility] CLIA [id number] [address] [place] [address] [place] Shrimp IgE Qnon 01-04-2025 Shrimp IgE Qn (S) <0.35 Normal <0.35 [facility] Comment on above: Order Comment: Speci men Type: BLOOD SPECIMEN Ordering Facility: [facility] Address: [address] [place] [address] Performed By: #### 3 016-3, 4498-2, 11719-0, 302-7 #### [facility] CLIA [id number] [address] [place] [address] [place] Shrimp IgE Qn (S)on 01-05-20 Shrimp IgE RAST class (S) Normal [facility] Comment on above: Order Comment: Speci men Type: BLOOD SPECIMEN Ordering Facility: [facility] Address: [address] [place] [address] Result Comment: Eulogio rgen class is no longer reported Performed By: #### 3 016-3, 4498-2, 13354-0, 3027 #### [facility] CLIA [id number] [address] [place] [address] [place] T4 Free SerPl-mCncon 025 Free T4 [Mass/Vol] 1.0 ng/dL Normal 0.9-1.7 [facility] Comment on above: Order Comment: Duran osman Type: BLOOD SPECIMEN Ordering Facility: [facility] Address: [address] [place] [address] Performed By: #### 3 016-3, 4498-2, 02512-1, 302-7 #### [facility] CLIA [id number] [address] [place] [address] [place] TRYPTASE BLOODon 01-04-2025 Tryptase [Mass/Vol] 4.3 ug/L Normal <8.4 [facility] Comment on above: Order Comment: Duran osman Type: BLOOD SPECIMEN Ordering Facility: [facility] Address: [address] [place] [address] Performed By: #### 3 016-3, 4498-2, 70298-1, 7 #### [facility] CLIA [id number] [address] [place] [address] [place] TSH SerPl-aCncon 01-04-2025 TSH Qn 2.450 m[IU]/L Normal 0.270-4.200 [facility] Comment on above: Order Comment: Duran osman Type: BLOOD SPECIMEN Ordering Facility: [facility] Address: [address] [place] [address] Result Comment: If t he patient is , TSH reference range varies by gestational period: First Trimester (weeks 9-12): 0.180-2.990 mIU/L Second Trimester: 0.110-3.980 mIU/L Third Trimester: 0.480-4.710 mIU/L Migel Buckley et al. A Practical Approach for the Verifications and Determination of Site- and Trimester-Specific Reference Intervals for Thyroid Function tests in . Thyroid, 2019:29:3:412-420. Abdias Rowland, et al. 2017 Guidelines of the [place] Thy[employer] for the Diagnosis and Management of Thyroid Disease during and the . Thyroid, 2017:27:3:315-389. Performed By: #### 3 016-3, 4498-2, 45629-5, 302-7 #### [facility] CLIA [id number] [address] [place] [address] [place] Chest PA and Lateralon 12-26 Chest PA and Lateral Normal [facility] Emergency Department Summary on 12-26-2024 Emergency Department Summary Normal [facility] Thoracic Spine 3 Viewson Thoracic Spine 3 Views Normal [facility] CNOVon 12-25-2024 CNOV Office Visit (WOUCA) FABIENNE FRANKS ([id number]) 1975 F Date Time Provider Department 12/25/24 9:30 AM SCOT BARRON During your visit today, we recorded the following information about you: Temperature Pulse Respiration Blood pressure 97.9 degrees 88/minute 18/minute 126/82 Weight 121.2 kg Scot Barron MD 12/25/2024 9:37 AM Signed [facility] Subjective Fabienne Yuen Golden is a 49 year old female. Patient presents with: Back Pain: Mid to upper back pain x 1 day Pt is here with back spasms that occur occasionally and now pain is mid back bilateral feels muscle spasms no chest pain no dyspnea no rashes no N/V no light headedness Back Pain Pertinent negatives include no chest pain, no fever, no numbness, no abdominal pain and no weakness. Review of Systems Constitutional: Negative for chills, diaphoresis, fatigue and fever. Respiratory: Negative for cough, chest tightness, shortness of breath, wheezing and stridor. Cardiovascular: Negative for chest pain and palpitations. Gastrointestinal: Negative for abdominal pain. Musculoskeletal: Positive for back pain and myalgias. Negative for neck pain and neck stiffness. Skin: Negative for rash. Neurological: Negative for weakness and numbness. Objective BP 126/82 Pulse 88 Temp 36.6 ?C (97.9 ?F) (Tympanic) Resp 18 Wt 121.2 kg (267 lb 3.2 oz) LMP 02/25/2018 SpO2 98% BMI 45.06 kg/m? Physical Exam Vitals and nursing note reviewed. Constitutional: Appearance: Normal appearance. She is not ill-appearing. Cardiovascular: Rate and Rhythm: Normal rate and regular rhythm. Heart sounds: Normal heart sounds. Pulmonary: Effort: Pulmonary effort is normal. No respiratory distress. Breath sounds: Normal breath sounds. No stridor. No wheezing, rhonchi or rales. Chest: Chest wall: No tenderness. Abdominal: Palpations: Abdomen is soft. Tenderness: There is no abdominal tenderness. Musculoskeletal: Cervical back: Normal range of motion and neck supple. No rigidity or tenderness. Comments: Pain to palpation bilateral mid back + spasms Skin: Findings: No rash. Neurological: Mental Status: She is alert and oriented to person, place, and time. Psychiatric: Mood and Affect: Mood normal. Behavior: Behavior normal. {ASSESSMENT/PLAN: 1. Acute bilateral thoracic back pain - ICD9: 724.1, ICD10: M54.6 Advised pt to call pcp and be seen tomorrow and if any worse today go to the ED - CYCLOBENZAPRINE 10 MG TABLET - METHYLPREDNISOLONE 4 MG TABLETS IN A DOSE PACK Scot Barron MD History and Record Review External record(s) reviewed: prior outpatient record. Differential Diagnoses - acute muscle strain is more likely for the following reason(s): suggested by HANDP - other back pain is less likely for the following reason(s): no systemic Sx, HANDP not suggestive Disposition The patient was discharged. Procedures Allergies As of Date: 12/25/2024 Noted Allergy Reaction IBUPROFEN 06/14/2005 12 - Shortness of Breath Comments: but able to take Aleve Date Reviewed: 12/25/2024 Reviewed by: Bonnie Vasques LPN - Fully Assessed Reason for Visit: Back Pain [12] Cmt: Mid to upper back pain x 1 day Primary Visit Diagnosis:Acute bilateral thoracic back pain [M54.6] Order(s):cyclobenzaprin e (FLEXERIL) 10 mg tabletTake 1 tablet by mouth three times a day as needed for up to 7 days.Disp: 21 tabletRfl: 0 methylPREDNISolone (MEDROL, ANUPAMA,) 4 mg Dose-PackTake as instructed per package.Disp: 21 tabletRfl: 0 Prescriptions as of 12/25/2024 - cyclobenzaprine (FLEXERIL) 10 mg tablet Take 1 tablet by mouth three times a day as needed for up to 7 days. - methylPREDNISolone (MEDROL, ANUPAMA,) 4 mg Dose-Pack Take as instructed per package. - prednisoLONE acetate (PRED FORTE) 1 % ophthalmic suspension 1 drop two times a day. - prednisoLONE sodium phosphate (ORAPRED) 15 mg/5 mL (3 mg/mL) oral liquid Take 20 mL by mouth once daily. Start wiith onset of swelling. Repeat in 24 hours if not resolved - hydrOXYchloroQUINE (PLAQUENIL) 200 mg tablet Take 1 tablet by mouth two times a day. - clopidogrel (PLAVIX) 75 mg tablet Take 75 mg by mouth once daily. - predniSONE (DELTASONE) 10 mg tablet Take 5 mg by mouth as needed. - albuterol HFA (PROAIR HFA) 90 mcg/actuation inhaler Inhale 2 Puffs as instructed every 4 hours as needed for Wheezing/Shortness of Breath. - biotin 5,000 mcg ODT DAILY - calcium citrate (CALCITRATE) 200 mg (950 mg) tab TWICE A DAY - Cholecalciferol, Vitamin D3, 2,000 unit cap TWICE A DAY - cyanocobalamin (VITAMIN B-12) 500 mcg tab tab(s) WE - ferrous sulfate 325 mg (65 mg iron) tablet Take 1 tablet by mouth twice daily. Problem List As Of Date 12/25/2024 Noted Resolved Supervision of other normal [Z34.80] 06/14/2005 09/05/2011 Edema or excessive weight gain (more content not included)... Normal [facility] CNOVon 12-08-2024 CNOV Office Visit (ALAPW) FABIENNE FRANKS ([id number]) 1975 F Date Time Provider Department 12/08/24 1:30 PM JANINA GOVEA During your visit today, we recorded the following information about you: Weight 123.7 kg Lawanda Gibson LPN 12/14/2024 10:58 AM Signed Patient reports that in January she had a reaction to something after eating [employer]. She was put on a ventilator for 4 days and in the hospital for a total of 2 weeks. Patient reports that she has 2 other reactions since then to something but was not food related. Patient was skin tested by another motorcycle deliverer and their test showed, cat, pine nuts, and mustard. Patient has not had any antihistamines in the last 5 days. Janina Govea DO 12/15/2024 4:05 PM Addendum Allergy and Immunology 12/13/2024 REFERRING PROVIDER: Jordan Ayala MD Consultation requested for an allergy/immunology evaluation. My final impression and recommendations will be communicated back to the requesting physician by way of shared medical record, fax, or US mail. CHIEF COMPLAINT: recurrent swelling episodes HISTORY OF PRESENT ILLNESS: The patient reports three episodes of angioedema, the first occurring in January while eating at [employer]. She experienced immediate pruritus of the hands and induration under the lower lip, followed by rapid swelling of the face, tongue, and throat. She took a chewable Zyrtec without relief and presented to the ER, where her throat completely closed within 10-15 minutes. Initial vitals per discharge summary were HR 113, BP 139/112, respiratory rate 24, sat 100%.She was intubated for 4 days due to persistent edema. She denies prior issues with the same meal, which she consumed weekly. She ordered the Broccoli Beef, which contains, sesame, soy, wheat, beef, wyatt, broccoli. She has eaten beef, broccoli, wheat, and soy sauce since. She is now hesitant to eat seafood because she is concerned there was cross-contamination. Since these episodes, she has been avoiding new foods, spicy foods, seafood, and seasonings due to fear of reactions. 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 She recalls one time when she brought home shrimp, ate some before bed, and awoke at 1 AM with difficulty swallowing. Unsure if she had angioedema. The second episode occurred in April at [employer], where she developed pruritus and swelling, possibly triggered by leather or an unknown contact. The third episode was in August, with sudden onset of symptoms upon stepping out of her truck, without known exposure to allergens. She denies any new medications at the time of these episodes but has a known allergy to ibuprofen, causing chest tightness and wheezing. She has a history of environmental allergies, including grass, trees, dust, and mold. She carries chewable Zyrtec, prednisone, and EpiPens but has not used the EpiPen during subsequent episodes due to uncertainty about when to administer it. Before she goes out to eat at a restaurant she takes a dose of prednisone just in case. She reports ongoing dysphagia since the intubation, attributed to ulcers from the procedure. She also notes increased joint pain since starting Plaquenil for Sjogren's syndrome and rheumatoid arthritis, diagnosed after an episode of severe photophobia and eye pain in July. She experiences pain in her legs and feet. Family history is notable for her mother having episodes of swelling in the neck, face, hands, and feet, with no definitive diagnosis. Brother has recent diagnosis of Bill's thyroiditis, presenting with fatigue and vision problems. 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 Morbid obesity HTN HLD Seizure disorder CHRISTIANA on CPAP Anxiety/Depression Chronic migraine Chronic anemia Hx of varicose veins R common iliac vein obstruction Answers submitted by the patient for this visit: Allergy Review of Symptoms (Submitted on 12/08/2024) Eye pain: Yes Eye redness: Yes Vision Disturbance: Yes Ear pain: Yes Hearing Loss: Yes Nasal Congestion: Yes Runny Nose: Yes Itchy Nose: Yes Sore throat: Yes Throat clearing: Yes Abdominal pain: Yes Trouble swallowing : Yes Diarrhea: Yes Constipation: Yes Headaches: Yes Dry skin: Yes [facility] HISTORY Question 12/08/2024 12:01 PM EDT - Filed by Patient Do you have or have you ever been diagnosed with allergic rhinitis? Not Sure Have you ever been skin tested for allergies? Yes Do you have asthma? No Do you have or have you ever been diagnosed with eczema or atopic dermatitis? Not Sure Do you get frequent sinus infections? Do you have nasal polyps? Do you have or have you ever been diagnosed with (more content not included)... Normal [facility] Prot/Creat Uron 10-08-2024 Protein/Creatinine (U) [Mass ratio] 0.12 mg/mg Normal <0.15 [facility] Comment on above: Order Comment: Speci men Type: URINE SPECIMENOrdering Facility: [facility] Address: [address] [place] [address] Result Comment: Adul t Proteinuria Categories: <0.15 mg/mg is considered normal to mildly increased 0.15 - 0.50 mg/mg is considered moderately increased >0.50 mg/mg is considered severely increased KDIGO. (2013). KDIGO 2012 Clinical Practice Guideline for the Evaluation and Management of Chronic Kidney Disease. Official Journal of the International Society of Nephrology, 3(1), 1-150. Performed By: #### 2 890-2 ####[facility] [id number] [place] [address] [place] Protein/Creatinine (U) [Mass ratio]on 10-08-2024 Creatinine (U) [Mass/Vol] 207.2 mg/dL Normal 20.0-300. 0 [facility] Comment on above: Order Comment: Speci men Type: URINE SPECIMENOrdering Facility: [facility] Address: [address] [place] [address] Performed By: #### 2 890-2 ####[facility] [id number] [place] [id number] [place] Protein (U) [Mass/Vol] 24 mg/dL High 0-20 [facility] Comment on above: Order Comment: Speci men Type: URINE SPECIMENOrdering Facility: [facility] Address: [address] [place] [address] Performed By: #### 2 890-2 ####[facility] [id number] [place] [id number] [place] Urinalysis complete panel (U )on 10-08-2024 BACTERIA UL 9015.5 uL High Negative [facility] Comment on above: Order Comment: Speci men Type: BLOOD SPECIMEN Ordering Facility: [facility] Address: [address] [place] [address] Performed By: #### 3 016-3, 4498-2, 12212-8, 7 #### [facility] CLIA [id number] [address] [place] [address] [place] Bilirubin Ql (U) Negative Normal Negative [facility] Comment on above: Order Comment: Speci men Type: BLOOD SPECIMEN Ordering Facility: [facility] Address: [address] [place] [address] Performed By: #### 3 016-3, 4498-2, 71321-5, 7 #### [facility] CLIA [id number] [address] [place] [address] [place] CALCIUM OXALATE CRYSTALS (UA) Few Abnormal None Seen [facility] Comment on above: Order Comment: Speci men Type: BLOOD SPECIMEN Ordering Facility: [facility] Address: [address] [place] [address] Performed By: #### 3 016-3, 4498-2, 23295-2, 7 #### [facility] CLIA [id number] [address] [place] [address] [place] Clarity (Unsp spec) Clear Normal Clear [facility] Comment on above: Order Comment: Speci men Type: BLOOD SPECIMEN Ordering Facility: [facility] Address: [address] [place] [address] Performed By: #### 3 016-3, 4498-2, 27740-0, 7 #### [facility] CLIA [id number] [address] [place] [address] [place] Color (U) Yellow Normal Yellow [facility] Comment on above: Order Comment: Speci men Type: BLOOD SPECIMEN Ordering Facility: [facility] Address: [address] [place] [address] Performed By: #### 3 016-3, 4498-2, 96465-8, 7 #### [facility] CLIA [id number] [address] [place] [address] [place] Epithelial cells LM.HPF (Urine sed) [#/Area] Few Normal [facility] Comment on above: Order Comment: Speci men Type: BLOOD SPECIMEN Ordering Facility: [facility] Address: [address] [place] [address] Performed By: #### 3 016-3, 4498-2, 72880-3, 3023-08 #### [facility] CLIA [id number] [address] [place] [address] [place] Glucose Test strip (U) [Mass/Vol] Negative Normal Negative [facility] Comment on above: Order Comment: Speci men Type: BLOOD SPECIMEN Ordering Facility: [facility] Address: [address] [place] [address] Performed By: #### 3 016-3, 4498-2, 13836-9, 3023-08 #### [facility] CLIA [id number] [address] [place] [address] [place] Hemoglobin Ql (U) Negative Normal Negative [facility] Comment on above: Order Comment: Speci men Type: BLOOD SPECIMEN Ordering Facility: [facility] Address: [address] [place] [address] Performed By: #### 3 016-3, 4498-2, 40353-5, 3023-08 #### [facility] CLIA [id number] [address] [place] [address] [place] Hyaline casts (Urine sed) [#/Area] 4-10 /LPF Abnormal 0 /LPF [facility] Comment on above: Order Comment: Speci men Type: BLOOD SPECIMEN Ordering Facility: [facility] Address: [address] [place] [address] Performed By: #### 3 016-3, 4498-2, 30620-2, 3023-08 #### [facility] CLIA [id number] [address] [place] [address] [place] Ketones Ql (U) Trace Abnormal Negative [facility] Comment on above: Order Comment: Speci men Type: BLOOD SPECIMEN Ordering Facility: [facility] Address: [address] [place] [address] Performed By: #### 3 016-3, 4498-2, 93416-3, 7 #### [facility] CLIA [id number] [address] [place] [address] [place] Leukocyte esterase Test strip Ql (U) 1+ Abnormal Negative [facility] Comment on above: Order Comment: Speci men Type: BLOOD SPECIMEN Ordering Facility: [facility] Address: [address] [place] [address] Performed By: #### 3 016-3, 4498-2, 76270-4, 3023-08 #### [facility] CLIA [id number] [address] [place] [address] [place] Nitrite Ql (U) Positive Abnormal Negative [facility] Comment on above: Order Comment: Speci men Type: BLOOD SPECIMEN Ordering Facility: [facility] Address: [address] [place] [address] Performed By: #### 3 016-3, 4498-2, 96221-9, 3023-08 #### [facility] CLIA [id number] [address] [place] [address] [place] pH (U) 5.5 [pH] Normal 5.0-8.0 [facility] Comment on above: Order Comment: Speci men Type: BLOOD SPECIMEN Ordering Facility: [facility] Address: [address] [place] [address] Performed By: #### 3 016-3, 4498-2, 52183-4, 7 #### [facility] CLIA [id number] [address] [place] [address] [place] Protein (U) [Mass/Vol] 1+ Abnormal Negative [facility] Comment on above: Order Comment: Speci men Type: BLOOD SPECIMEN Ordering Facility: [facility] Address: [address] [place] [address] Performed By: #### 3 016-3, 4498-2, 55324-0, 7 #### [facility] CLIA [id number] [address] [place] [address] [place] RBC LM.HPF (Urine sed) [#/Area] 0-2 /HPF Normal 0-2 /HPF [facility] Comment on above: Order Comment: Speci men Type: BLOOD SPECIMEN Ordering Facility: [facility] Address: [address] [place] [address] Performed By: #### 3 016-3, 4498-2, 42958-6, 3027 #### [facility] CLIA [id number] [address] [place] [address] [place] Specific gravity (U) [Rel density] 1.026 Normal 1.005-1.030 [facility] Comment on above: Order Comment: Speci men Type: BLOOD SPECIMEN Ordering Facility: [facility] Address: [address] [place] [address] Performed By: #### 3 016-3, 4498-2, 82285-7, 3027 #### [facility] CLIA [id number] [address] [place] [address] [place] Urobilinogen Ql (U) 0.2 EU/dL Normal 0.2-1.0 EU/dL [facility] Comment on above: Order Comment: Speci men Type: BLOOD SPECIMEN Ordering Facility: [facility] Address: [address] [place] [address] Performed By: #### 3 016-3, 4498-2, 15311-9, 3027 #### [facility] CLIA [id number] [address] [place] [address] [place] WBC LM.HPF (Urine sed) [#/Area] /[HPF] Abnormal 0-5 /HPF [facility] Comment on above: Order Comment: Speci men Type: BLOOD SPECIMEN Ordering Facility: [facility] Address: [address] [place] [address] Performed By: #### 3 016-3, 4498-2, 57595-1, 302-7 #### [facility] CLIA [id number] [address] [place] [address] [place] ALP SerPl-cCncon 10-07-2024 ALP [Catalytic activity/Vol] 134 U/L High 34-123 [facility] Comment on above: Order Comment: Speci men Type: BLOOD SPECIMEN Ordering Facility: [facility] Address: [address] [place] [address] Performed By: #### 3 016-3, 4498-2, 44236-4, 3024-7 #### [facility] CLIA [id number] [address] [place] [address] [place] ALT SerPl-cCncon 10-07-2024 ALT [Catalytic activity/Vol] 14 U/L Normal 7-38 [facility] Comment on above: Order Comment: Speci men Type: BLOOD SPECIMEN Ordering Facility: [facility] Address: [address] [place] [address] Performed By: #### 3 016-3, 4498-2, 99191-4, 3024-7 #### [facility] CLIA [id number] [address] [place] [address] [place] ANTI NEUTRO CYTO ABon 2024 INTERPRETATION (ANCA) Equivocal staining seen on the ethanol (indirect immunofluorescence screen) slide but negative results on follow up confirmatory testing. Anti-nuclear antibody test may be considered. Clinical correlation is required. Normal [facility] Comment on above: Order Comment: Speci men Type: BLOOD SPECIMEN Ordering Facility: [facility] Address: [address] [place] [address] Performed By: #### 3 016-3, 4498-2, 90526-2, 3024-7 #### [facility] CLIA [id number] [address] [place] [address] [place] Myeloperoxidase Ab Qn (S) <0.2 Normal <1.0 [facility] Comment on above: Order Comment: Speci men Type: BLOOD SPECIMEN Ordering Facility: [facility] Address: [address] [place] [address] Performed By: #### 3 016-3, 4498-2, 38936-5, 7 #### [facility] CLIA [id number] [address] [place] [address] [place] Neutrophil cytoplasmic Ab.classic IF Ql (S) Negative Normal Negative [facility] Comment on above: Order Comment: Speci men Type: BLOOD SPECIMEN Ordering Facility: [facility] Address: [address] [place] [address] Performed By: #### 3 016-3, 4498-2, 06844-1, 7 #### [facility] CLIA [id number] [address] [place] [address] [place] Neutrophil cytoplasmic Ab.perinuclear IF Ql (S) Negative Normal Negative [facility] Comment on above: Order Comment: Speci men Type: BLOOD SPECIMEN Ordering Facility: [facility] Address: [address] [place] [address] Performed By: #### 3 016-3, 4498-2, 30457-6, 7 #### [facility] CLIA [id number] [address] [place] [address] [place] Proteinase 3 Ab Qn (S) <0.2 Normal <1.0 [facility] Comment on above: Order Comment: Speci men Type: BLOOD SPECIMEN Ordering Facility: [facility] Address: [address] [place] [address] Performed By: #### 3 016-3, 4498-2, 70936-9, 7 #### [facility] CLIA [id number] [address] [place] [address] [place] STAFF REVIEW (ANCA) Reviewed by Williams Hensley, Ph.D D(YANETH) [facility] Comment on above: Order Comment: Speci men Type: BLOOD SPECIMEN Ordering Facility: [facility] Address: [address] [place] [address] Performed By: #### 3 016-3, 4498-2, 99853-3, 7 #### [facility] CLIA [id number] [address] [place] [address] [place] Aldolase SerPl-cCncon 2024 Aldolase [Catalytic activity/Vol] 3.1 mU/mL Normal 1.5-8.1 [facility] Comment on above: Order Comment: Duran osman Type: BLOOD SPECIMEN Ordering Facility: [facility] Address: [address] [place] [address] Result Comment: This test was developed, and its performance characteristics determined by the [facility]. It has not been cleared or approved by the FDA. The [facility] of Pathology and Laboratory Medicine is regulated under CLIA as qualified to perform high-complexity testing. This test is used for clinical purposes. It should not be regarded as investigational or for research. Performed By: #### 3 016-3, 4498-2, 09765-6, 3024-7 #### [facility] CLIA [id number] [address] [place] [address] [place] BUN SerPl-mCncon 10-07-2024 Urea nitrogen [Mass/Vol] 10 mg/dL Normal 7-21 [facility] Comment on above: Order Comment: Speci jacqui Type: BLOOD SPECIMEN Ordering Facility: [facility] Address: [address] [place] [address] Performed By: #### 3 016-3, 4498-2, 92502-2, 302-7 #### [facility] CLIA [id number] [address] [place] [address] [place] C3 SerPl-mCncon 10-07-2024 Complement C3 [Mass/Vol] 213 mg/dL High 86-166 [facility] Comment on above: Order Comment: Murrayi jacqui Type: BLOOD SPECIMEN Ordering Facility: [facility] Address: [address] [place] [address] Performed By: #### 3 016-3, 4498-2, 42579-7, 3024-7 #### [facility] CLIA [id number] [address] [place] [address] [place] C4 SerPl-mCncon 10-07-2024 Complement C4 [Mass/Vol] 33 mg/dL Normal 13-46 [facility] Comment on above: Order Comment: Speci men Type: BLOOD SPECIMEN Ordering Facility: [facility] Address: [address] [place] [address] Performed By: #### 3 016-3, 4498-2, 25583-4, 3024-7 #### [facility] CLIA [id number] [address] [place] [address] [place] CBC W Auto Differential pane l (Bld)on 10-07-2024 Basophils (Bld) [#/Vol] 0.05 10*3/uL Normal <0.11 [facility] Comment on above: Order Comment: Speci men Type: BLOOD SPECIMENOrdering Facility: [facility] Address: [address] [place] [address] Performed By: #### 4 537-7, 57413-7 ####[facility] [id number] [place] [address] [place] Basophils/100 WBC (Bld) 0.6 % Normal [facility] Comment on above: Order Comment: Speci men Type: BLOOD SPECIMENOrdering Facility: [facility] Address: [address] [place] [address] Performed By: #### 4 537-7, 97994-2 ####[facility] [id number] [place] [address] [place] Differential cell count method Nom (Bld) Auto Normal [facility] Comment on above: Order Comment: Speci men Type: BLOOD SPECIMENOrdering Facility: [facility] Address: [address] [place] [address] Performed By: #### 4 537-7, 65388-9 ####[facility] [id number] [place] [address] [place] Eosinophils (Bld) [#/Vol] 0.12 10*3/uL Normal <0.46 [facility] Comment on above: Order Comment: Speci men Type: BLOOD SPECIMENOrdering Facility: [facility] Address: [address] [place] [address] Performed By: #### 4 537-7, 76003-0 ####[facility] [id number] [place] [address] [place] Eosinophils/100 WBC (Bld) 1.4 % Normal [facility] Comment on above: Order Comment: Speci men Type: BLOOD SPECIMENOrdering Facility: [facility] Address: [address] [place] [address] Performed By: #### 4 537-7, 36624-9 ####[facility] [id number] [place] [address] [place] Erythrocyte distribution width (RBC) [Ratio] 14.6 % Normal 11.5-15.0 [facility] Comment on above: Order Comment: Speci men Type: BLOOD SPECIMENOrdering Facility: [facility] Address: [address] [place] [address] Performed By: #### 4 537-7, 39536-3 ####[facility] [id number] [place] [address] [place] Hematocrit (Bld) [Volume fraction] 36.0 % Normal 36.0-46.0 [facility] Comment on above: Order Comment: Speci men Type: BLOOD SPECIMENOrdering Facility: [facility] Address: [address] [place] [address] Performed By: #### 4 537-7, 66448-2 ####[facility] [id number] [place] [address] [place] Hemoglobin (Bld) [Mass/Vol] 11.7 g/dL Normal 11.5-15.5 [facility] Comment on above: Order Comment: Speci men Type: BLOOD SPECIMENOrdering Facility: [facility] Address: [address] [place] [address] Performed By: #### 4 537-7, 40820-5 ####[facility] LABIA [id number] [place] [address] [place] Immature granulocytes (Bld) [#/Vol] 0.05 10*3/uL Normal <0.10 [facility] Comment on above: Order Comment: Speci men Type: BLOOD SPECIMENOrdering Facility: [facility] Address: [address] [place] [address] Performed By: #### 4 537-7, 46462-1 ####[facility] LABIA [id number] [place] [address] [place] Immature granulocytes/100 WBC (Bld) 0.6 % Normal [facility] Comment on above: Order Comment: Speci men Type: BLOOD SPECIMENOrdering Facility: [facility] Address: [address] [place] [address] Performed By: #### 4 537-7, 63461-3 ####[facility] LABIA [id number] [place] [address] [place] Lymphocytes (Bld) [#/Vol] 1.79 10*3/uL Normal 1.00-4.0 0 [facility] Comment on above: Order Comment: Speci men Type: BLOOD SPECIMENOrdering Facility: [facility] Address: [address] [place] [address] Performed By: #### 4 537-7, 85806-5 ####[facility] LABIA [id number] [place] [address] [place] Lymphocytes/100 WBC (Bld) 21.3 % Normal [facility] Comment on above: Order Comment: Speci men Type: BLOOD SPECIMENOrdering Facility: [facility] Address: [address] [place] [address] Performed By: #### 4 537-7, 44993-8 ####[facility] LABIA [id number] [place] [address] [place] MCH (RBC) [Entitic mass] 27.1 pg Normal 26.0-34.0 [facility] Comment on above: Order Comment: Speci men Type: BLOOD SPECIMENOrdering Facility: [facility] Address: [address] [place] [address] Performed By: #### 4 537-7, 51300-5 ####[facility] LABIA [id number] [place] [address] [place] MCHC (RBC) [Mass/Vol] 32.5 g/dL Normal 30.5-36.0 [facility] Comment on above: Order Comment: Speci men Type: BLOOD SPECIMENOrdering Facility: [facility] Address: [address] [place] [address] Performed By: #### 4 537-7, 84207-6 ####[facility] [id number] [place] [address] [place] MCV (RBC) [Entitic vol] 83.5 fL Normal 80.0-100.0 [facility] Comment on above: Order Comment: Speci men Type: BLOOD SPECIMENOrdering Facility: [facility] Address: [address] [place] [address] Performed By: #### 4 537-7, 42334-5 ####[facility] LABIA [id number] [place] [id number] [place] Monocytes (Bld) [#/Vol] 0.49 10*3/uL Normal <0.87 [facility] Comment on above: Order Comment: Speci men Type: BLOOD SPECIMENOrdering Facility: [facility] Address: [address] [place] [address] Performed By: #### 4 537-7, 78751-1 ####[facility] LABIA [id number] [place] [id number] [place] Monocytes/100 WBC (Bld) 5.8 % Normal [facility] Comment on above: Order Comment: Speci men Type: BLOOD SPECIMENOrdering Facility: [facility] Address: [address] [place] [address] Performed By: #### 4 537-7, 83715-7 ####[facility]CL[facility] [id number] [place] [address] [place] Neutrophils (Bld) [#/Vol] 5.91 10*3/uL Normal 1.45-7.5 0 [facility] Comment on above: Order Comment: Speci men Type: BLOOD SPECIMENOrdering Facility: [facility] Address: [address] [place] [address] Performed By: #### 4 537-7, 23773-0 ####[facility] LABCLIA [id number] [place] [address] [place] Neutrophils/100 WBC (Bld) 70.3 % Normal [facility] Comment on above: Order Comment: Speci men Type: BLOOD SPECIMENOrdering Facility: [facility] Address: [address] [place] [address] Performed By: #### 4 537-7, 06466-5 ####[facility] LABCLIA [id number] [place] [address] [place] Nucleated RBC (Bld) [#/Vol] 10*3/uL Normal <0.01 [facility] Comment on above: Order Comment: Speci men Type: BLOOD SPECIMENOrdering Facility: [facility] Address: [address] [place] [address] Performed By: #### 4 537-7, 94110-1 ####[facility] LABCLIA [id number] [place] [id number] [place] Nucleated RBC/100 WBC (Bld) [Ratio] 0.0 /100 WBC Normal [facility] Comment on above: Order Comment: Speci men Type: BLOOD SPECIMENOrdering Facility: [facility] Address: [address] [place] [address] Performed By: #### 4 537-7, 70122-5 ####[facility] LABCLIA [id number] [place] [address] [place] Platelet mean volume (Bld) [Entitic vol] 10.0 fL Normal 9.0-12.7 [facility] Comment on above: Order Comment: Speci men Type: BLOOD SPECIMENOrdering Facility: [facility] Address: [address] [place] [address] Performed By: #### 4 537-7, 23336-2 ####[facility]CLIA [id number] [place] [address] [place] Platelets (Bld) [#/Vol] 300 10*3/uL Normal 150-400 [facility] Comment on above: Order Comment: Speci men Type: BLOOD SPECIMENOrdering Facility: [facility] Address: [address] [place] [address] Performed By: #### 4 537-7, 17261-3 ####[facility] LABIA [id number] [place] [address] [place] RBC (Bld) [#/Vol] 4.31 10*6/uL Normal 3.90-5.20 [facility] Comment on above: Order Comment: Speci men Type: BLOOD SPECIMENOrdering Facility: [facility] Address: [address] [place] [address] Performed By: #### 4 537-7, 94168-3 ####[facility]CLIA [id number] [place] [address] [place] WBC (Bld) [#/Vol] 8.41 10*3/uL Normal 3.70-11.00 [facility] Comment on above: Order Comment: Speci men Type: BLOOD SPECIMENOrdering Facility: [facility] Address: [address] [place] [address] Performed By: #### 4 537-7, 13204-9 ####[facility] LABCLIA [id number] [address] [place] CK SerPl-cCncon 10-07-2024 CK [Catalytic activity/Vol] 82 U/L Normal 42-196 [facility] Comment on above: Order Comment: Speci jacqui Type: BLOOD SPECIMEN Ordering Facility: [facility] Address: [address] [place] [address] Performed By: #### 3 016-3, 4498-2, 42495-4, 3024-7 #### [facility] CLIA [id number] [address] [place] [address] [place] CNOVon 10-07-2024 CNOV Office Visit (RHEUMN ) FABIENNE FRANKS Alpa ([id number]) 1975 F Date Time Provider Department 10/07/24 9:00 AM JORDAN AYALA RHEUMN During your visit today, we recorded the following information about you: Temperature Pulse Blood pressure Weight 97.9 degrees 80/minute 135/73 123 kg Height 1.64 m Jordan Ayala MD 10/07/2024 12:28 PM Signed MD Fabienne Jon October 06, 2024 Referring Provider: PCP: No primary care provider on file. Chief Complaint: Patient presents with: Consult HPI:Yuanmavis Franks is a 49 year old female who comes here today for ?autoimmune disease. Fabienne reports a significant allergic reaction in January after consuming food from [employer]. Within 10 minutes, she experienced pruritus of the hands and a sensation of swelling in the face and oral cavity. Upon arrival at the ER, her airway occluded, necessitating emergent intubation and mechanical ventilation for 4 days. Subsequent allergy testing was inconclusive. Since then, she has experienced similar reactions triggered by environmental exposures, such as the smell in a boot store and the scent of weeds at her [place] residence. These episodes were managed with antihistamines and cold showers, which provided relief. Approximately one month ago, she awoke with acute onset of erythema, pain, and photophobia in the right eye, described as a sensation of sand in the eye. An customer service advocate diagnosed her with a condition resembling arthritis of the eye and prescribed PF drops, which initially alleviated symptoms. However, upon tapering the medication, she began experiencing photopsia and a sensation of seeing her heartbeat in her vision. She missed a follow-up appointment last week and reports that this morning, her right eye was erythematous and watery again. She is going to make an appointment to see her customer service advocate again soon. She also notes intermittent watering of both eyes over the past week and occasional dryness. She underwent bilateral cataract surgery several years ago and reports a decline in visual acuity over the past year. She has a history of chronic upper back pain between the shoulder blades for approximately 20 years, with occasional lower back discomfort. She also reports bilateral ankle and foot pain for 3-4 years, with nocturnal exacerbation after prolonged standing during the day. Pain severity can reach 10/10. Morning stiffness and swelling are noted, predominantly in the left foot and ankle. Prolonged sitting, such as during car rides, exacerbates back pain and causes swelling and stiffness in the feet and ankles. She occasionally experiences shoulder pain and recently had difficulty ambulating due to right hip pain two days ago. She denies current use of analgesics but notes that gabapentin, previously prescribed for hot flashes, incidentally alleviated her leg pain. She reports xerostomia, requiring fluids to assist with swallowing, which has worsened since intubation. She denies oral ulcers or rashes. She also mentions a dent in one of her fingernails and a history of a lump on her hand, which has since resolved. Family history is significant for her brother's recent diagnosis of Bill's thyroiditis, presenting with fatigue and vision problems. Her mother has experienced recurrent swelling of the face, neck, hands, arms, and feet over the past 1.5-2 years, currently managed with injections. She denies family history of lupus, psoriasis, Crohn's disease, ulcerative colitis, ankylosing spondylitis, uveitis, or iritis. PAST MEDICAL HISTORY Diagnosis Date Localization-related (focal) (partial) epilepsy and epileptic syndromes with simple partial seizures, without mention of intractable epilepsy AFTER OF FIRST CHILD PAST SURGICAL HISTORY Procedure Laterality Date CARPAL TUNNEL DELIVERY ONLY 1998 AND 2000 , low cervical ENDOSEE TUBING FOR DEVICE 12/24/2017 with EMB GASTRIC BYPASS-MORBID OBESITY 04/06/2017 gastric sleeve HYSTEROSCOPY, SURGICAL; WITH ENDOME 02/04/2018 [place] PAST SURGICAL HISTORY OF NAIL EVERSION REMOVAL OF TONSILS,<12 Y/O Tonsillectomy TUBAL LIGATION, Social History Tobacco Use Smoking status: Never Smokeless tobacco: Never Substance Use Topics Alcohol use: No Drug use: No Health Maintenance: Depression Screening Never done Anxiety Screening Never done Hepatitis C Screening Never done HIV Screening Never done Mammogram Screening Never done Lipid Screening due on 2022 Diabetes Screening due on 2022 Colorectal Cancer Screening Never done Cervical Cancer Screening due on 11/19/2022 There is no immunization history on file for this patient. Current Outpatient Medications Medication Sig Dispense Refill clopidogrel (PLAVIX) 75 mg (more content not included)... Normal [facility] CRP SerPl-mCncon 10-07-2024 CRP [Mass/Vol] 1.3 mg/dL High <0.9 [facility] Comment on above: Order Comment: Speci men Type: BLOOD SPECIMEN Ordering Facility: [facility] Address: [address] [place] [address] Performed By: #### 3 016-3, 4498-2, 43187-6, 3024-7 #### [facility] CLIA [id number] [address] [place] [address] [place] Centromere Ab IF Ql (S)on Centromere Ab Qn (S) <0.2 Normal <1.0 [facility] Comment on above: Order Comment: Speci jacqui Type: BLOOD SPECIMEN Ordering Facility: [facility] Address: [address] [place] [address] Result Comment: Anti -centromere antibody is used as in aid in diagnosis of systemic sclerosis. Clinical correlation is required. Test Methodology: Multiplex flow immunoassay. Performed By: #### 3 016-3, 4498-2, 44131-8, 3024-7 #### [facility] CLIA [id number] [address] [place] [address] [place] CENTROMERE AB QUAL Negative Normal Negative [facility] Comment on above: Order Comment: Speci men Type: BLOOD SPECIMEN Ordering Facility: [facility] Address: [address] [place] [address] Performed By: #### 3 016-3, 4498-2, 05281-5, 3024-7 #### [facility] CLIA [id number] [address] [place] [address] [place] Chromatin Ab Qnon 10-07-2024 CHROMATIN AB QUAL Negative Normal Negative [facility] Comment on above: Order Comment: Speci men Type: BLOOD SPECIMENOrdering Facility: [facility] Address: [address] [place] [address] Performed By: #### 2 9374-6, 00184-0, 07580-9 ####[facility] [id number] [place] [address] [place] Chromatin Ab SerPl-aCncon Chromatin Ab Qn <0.2 Normal <1.0 [facility] Comment on above: Order Comment: Speci men Type: BLOOD SPECIMENOrdering Facility: [facility] Address: [address] [place] [address] Result Comment: Test Methodology: Multiplex flow immunoassay. Performed By: #### 2 9374-6, 80977-6, 69277-4 ####[facility] LAB[facility] [id number] [place] [address] [place] Creatinine and Glomerular fi ltration rate.predicted panel (S/P/Bld)on 10-07-2024 Creatinine [Mass/Vol] 0.57 mg/dL Low 0.58-0.96 [facility] Comment on above: Order Comment: Duran osman Type: BLOOD SPECIMEN Ordering Facility: [facility] Address: [address] [place] [address] Performed By: #### 3 016-3, 4498-2, 04115-8, 3024-7 #### [facility] CLIA [id number] [address] [place] [address] [place] eGFRcr SerPlBld CKD-EPI 2020 113 mL/min/1.73m??? Normal >=60 [facility] Comment on above: Order Comment: Duran men Type: BLOOD SPECIMEN Ordering Facility: [facility] Address: [address] [place] [address] Result Comment: Bethanie mated Glomerular Filtration Rate (eGFR) is calculated using the 2020 CKD-EPI creatinine equation. This equation utilizes serum creatinine, sex, and age as parameters. The creatinine assay has traceable calibration to isotope dilution-mass spectrometry. Refer to KDIGO guidelines for clinical interpretation. In patients with unstable renal function, e.g. those with acute kidney injury, the eGFR may not accurately reflect actual GFR. Performed By: #### 3 016-3, 4498-2, 86969-4, 3024-7 #### [facility] CLIA [id number] [address] [place] [address] [place] Cyclic citrullinated peptide IgG Qnon 10-07-2024 CCP ANTIBODY IGG QUALITATIVE Positive Abnormal Negative [facility] Comment on above: Order Comment: Duran osman Type: BLOOD SPECIMEN Ordering Facility: [facility] Address: [address] [place] [address] Performed By: #### 3 016-3, 4498-2, 15497-0, 3024-7 #### [facility] CLIA [id number] [address] [place] [address] [place] DNA double strand Ab IA Qn ( S)on 10-07-2024 DNA ANTIBODY 97 IU/mL Normal <=200 [facility] Comment on above: Order Comment: Duran osman Type: BLOOD SPECIMEN Ordering Facility: [facility] Address: [address] [place] [address] Result Comment: Nega tive: <200 IU/mL Equivocal: 201-300 IU/mL Moderate Positive: 301-800 IU/mL Strong Positive: >801 IU/mL Performed By: #### 3 2677-7 #### [facility] CLIA [id number] [address] [place] [address] [place] DNA ANTIBODY QUALITATIVE INTERPRETATION Negative Normal Negative [facility] Comment on above: Order Comment: Speci men Type: BLOOD SPECIMEN Ordering Facility: [facility] Address: [address] [place] [address] Performed By: #### 3 2677-7 #### [facility] CLIA [id number] [address] [place] [address] [place] LUIS Jo1 Ab Ser-aCncon 2024 Elaine-1 extractable nuclear Ab Qn (S) <0.2 Normal <1.0 [facility] Comment on above: Order Comment: Speci men Type: BLOOD SPECIMEN Ordering Facility: [facility] Address: [address] [place] [address] Performed By: #### 3 016-3, 4498-2, 00054-9, 3024-7 #### [facility] CLIA [id number] [address] [place] [address] [place] LUIS DRAWBENCH OPERATOR HELPER Ab Ser-aCncon 2024 Ribonucleoprotein extractable nuclear Ab Qn (S) <0.2 Normal <1.0 [facility] Comment on above: Order Comment: Speci men Type: BLOOD SPECIMENOrdering Facility: [facility] Address: [address] [place] [address] Performed By: #### 2 9374-6, 00570-2, 55970-7 ####[facility] LABCLIA [id number] [place] [address] [place] LUIS SM IgG Ser-aCncon 2024 Palmer extractable nuclear IgG Qn (S) <0.2 Normal <1.0 [facility] Comment on above: Order Comment: Speci men Type: BLOOD SPECIMEN Ordering Facility: [facility] Address: [address] [place] [address] Performed By: #### 3 016-3, 4498-2, 03760-4, 3024-7 #### [facility] CLIA [id number] [address] [place] [address] [place] LUIS SS-A Ab Ser-aCncon 10-07 Sjogrens syndrome-A extractable nuclear Ab Qn (S) >8.0 High <1.0 [facility] Comment on above: Order Comment: Speci men Type: BLOOD SPECIMENOrdering Facility: [facility] Address: [address] [place] [address] Result Comment: Test Methodology: Multiplex flow immunoassay. Performed By: #### 2 9374-6, 57356-4, 57764-9 ####[facility] LAB[facility] [id number] [place] [address] [place] LUIS SS-B Ab Ser-aCncon 10-07 Sjogrens syndrome-B extractable nuclear Ab Qn (S) <0.2 Normal <1.0 [facility] Comment on above: Order Comment: Murrayi jacqui Type: BLOOD SPECIMEN Ordering Facility: [facility] Address: [address] [place] [address] Result Comment: Anti -SSB (anti-La) antibody is used as an aid in diagnosis of a variety of systemic autoimmune diseases, especially for Sjogren's syndrome and systemic lupus erythematosus. Clinical correlation is required. Test Methodology: Multiplex flow immunoassay. Performed By: #### 3 016-3, 4498-2, 65768-3, 3024-7 #### [facility] CLIA [id number] [address] [place] [address] [place] ESR Westergren method (Bld) [Velocity]on 10-07-2024 ESR (Bld) [Velocity] 43 mm/h High 0-20 [facility] Comment on above: Order Comment: Speci men Type: BLOOD SPECIMENOrdering Facility: [facility] Address: [address] [place] [address] Performed By: #### 4 537-7, 68709-0 ####[facility] LABCLIA [id number] [place] [address] [place] HBV core Ab Ser Qlon HBV core Ab Ql (S) Negative Normal Negative [facility] Comment on above: Order Comment: Speci men Type: BLOOD SPECIMENOrdering Facility: [facility] Address: [address] [place] [address] Result Comment: No e vidence of current or past infection with Hepatitis B virus. Should recent infection be suspected, repeat testing may be considered 3-4 weeks after this draw. Performed By: #### 1 6933-4, 5195-3 ####[facility] LABCLIA [id number] [place] [address] [place] HBV surface Ag Ser Qlon HBV surface Ag Ql (S) Negative Normal Negative [facility] Comment on above: Order Comment: Speci men Type: BLOOD SPECIMEN Ordering Facility: [facility] Address: [address] [place] [address] Performed By: #### 3 016-3, 4498-2, 78827-8, 3027 #### [facility] CLIA [id number] [address] [place] [address] [place] HCV Ab Ser Qlon 10-07-2024 HCV Ab Ql (S) Negative Normal Negative [facility] Comment on above: Order Comment: Speci men Type: BLOOD SPECIMEN Ordering Facility: [facility] Address: [address] [place] [address] Result Comment: The result suggests no evidence of infection with Hepatitis C virus. Should recent infection be suspected, repeat testing may be considered 4-6 weeks after this draw. Performed By: #### 3 016-3, 4498-2, 14163-9, 3024-7 #### [facility] CLIA [id number] [address] [place] [address] [place] Elaine-1 extractable nuclear Ab Qn (S)on 10-07-2024 ELAINE 1 ANTIBODY QUAL Negative Normal Negative [facility] Comment on above: Order Comment: Duran osman Type: BLOOD SPECIMEN Ordering Facility: [facility] Address: [address] [place] [address] Result Comment: Anti -ELAINE-1 antibody is used as an aid in diagnosis of polymyositis and dermatomyositis especially with pulmonary involvement. A negative result cannot rule out polymyositis or dermatomyositis. Clinical correlation is required. Test Methodology: Multiplex flow immunoassay. Performed By: #### 3 016-3, 4498-2, 44639-4, 3023-7 #### [facility] CLIA [id number] [address] [place] [address] [place] No Panel Informationon 10-07 Radiology Study observation (narrative) Kelvin cannon [facility] IMPRESSION: No radiographic evidence for inflammatory arthritis. Shipping And Receiving Weigher: SHAHEEN Transcribe Date/Time: Oct 07 2024 10:52A Dictated by : JOHN REBOLLEDO MD This examination was interpreted and the report reviewed and electronically signed by: JOHN REBOLLEDO MD on Oct 07 2024 10:55AM [facility] DIVISION OF RADIOLOGY No Panel InformationOrdered By: Ccf Provider on 10-07-2024 [facility] Nuclear Ab IA Ql (S)on 10-07 PRIMO SCR QUAL Positive Abnormal Negative [facility] Comment on above: Order Comment: Duran osman Type: BLOOD SPECIMEN Ordering Facility: [facility] Address: [address] [place] [address] Result Comment: The qualitative antinuclear antibody screen test performed using the following antigens: dsDNA, Chromatin, Ribosomal P, SS-A 60, SS-A 52, SS-B, Sm, SmRNP, DRAWBENCH OPERATOR HELPER A, DRAWBENCH OPERATOR HELPER 68, Scl-70, Elaine-1, and Centromere B. Methodology: Multiplex flow immunoassay. Performed By: #### 3 016-3, 4498-2, 87107-0, 3023-7 #### [facility] CLIA [id number] [address] [place] [address] [place] Rheumatoid fact SerPl-aCncon 10-07-2024 Rheumatoid factor Qn 42 [IU]/mL High <16 [facility] Comment on above: Order Comment: Speci men Type: BLOOD SPECIMEN Ordering Facility: [facility] Address: [address] [place] [address] Performed By: #### 3 016-3, 4498-2, 65264-5, 3024-7 #### [facility] CLIA [id number] [address] [place] [address] [place] Ribonucleoprotein extractabl e nuclear Ab Qn (S)on 10-07-2024 ANTI-DRAWBENCH OPERATOR HELPER QUAL Negative Normal Negative [facility] Comment on above: Order Comment: Speci men Type: BLOOD SPECIMENOrdering Facility: [facility] Address: [address] [place] [address] Performed By: #### 2 9374-6, 81260-4, 67369-3 ####[facility] LABIA [id number] [place] [address] [place] RIBOSOMAL DRAWBENCH OPERATOR HELPER QUAL Negative Normal Negative [facility] Comment on above: Order Comment: Speci men Type: BLOOD SPECIMENOrdering Facility: [facility] Address: [address] [place] [address] Result Comment: Anti -Ribosomal RNA (Ribosomal P) antibody is used as an aid in diagnosis of systemic autoimmune diseases especially systemic lupus erythematosus and mixed connective tissue disease. Cross-reactivity with Anti-palmer antibody is not uncommon. Clinical correlation is required. Test Methodology: Multiplex flow immunoassay. Performed By: #### 2 9374-6, 89923-7, 66672-4 ####[facility] LABCLIA [id number] [place] [address] [place] SCL-70 extractable nuclear I gG IA Qn (S)on 10-07-2024 SCLERODERMA AB QUAL Negative Normal Negative [facility] Comment on above: Order Comment: Speci men Type: BLOOD SPECIMEN Ordering Facility: [facility] Address: [address] [place] [address] Performed By: #### 3 016-3, 4498-2, 44453-4, 7 #### [facility] CLIA [id number] [address] [place] [address] [place] SCLERODERMA IGG AB <0.2 Normal <1.0 [facility] Comment on above: Order Comment: Speci jacqui Type: BLOOD SPECIMEN Ordering Facility: [facility] Address: [address] [place] [address] Result Comment: Scl- 70/Scleroderma antibody test is used as an aid in diagnosis of systemic sclerosis especially the diffuse cutaneous form. A negative result cannot rule out systemic sclerosis. The final interpretation should consider clinical picture and other test results such as anti-centromere antibody. Test Methodology: Multiplex flow immunoassay. Performed By: #### 3 016-3, 4498-2, 11043-3, 7 #### [facility] CLIA [id number] [address] [place] [address] [place] Sjogrens syndrome-A extracta ble nuclear Ab Qn (S)on 10-07-2024 SSA ANTIBODY QUAL Positive Abnormal Negative [facility] Comment on above: Order Comment: Speci men Type: BLOOD SPECIMENOrdering Facility: [facility] Address: [address] [place] [address] Performed By: #### 2 9374-6, 21354-0, 57563-8 ####[facility] LABCLIA [id number] [place] [address] [place] Sjogrens syndrome-B extracta ble nuclear Ab Qn (S)on 10-07-2024 SSB ANTIBODY QUAL Negative Normal Negative [facility] Comment on above: Order Comment: Speci men Type: BLOOD SPECIMEN Ordering Facility: [facility] Address: [address] [place] [address] Performed By: #### 3 016-3, 4498-2, 73208-0, 3027 #### [facility] CLIA [id number] [address] [place] [address] [place] Palmer extractable nuclear Ig G Qn (S)on 10-07-2024 SM ANTIBODY QUAL Negative Normal [facility] Comment on above: Order Comment: Speci men Type: BLOOD SPECIMEN Ordering Facility: [facility] Address: [address] [place] [address] Result Comment: Anti -Sm (Palmer) antibody is used as an aid in diagnosis of systemic lupus erythematosus and its presence is associated with renal disease. A negative result cannot rule out systemic lupus erythematosus. Clinical correlation is required. Test Methodology: Multiplex flow immunoassay. Performed By: #### 3 016-3, 4498-2, 62521-9, 7 #### [facility] CLIA [id number] [address] [place] [address] [place] TSH SerPl-aCncon 10-07-2024 TSH Qn 1.370 m[IU]/L Normal 0.270-4.200 [facility] Comment on above: Order Comment: Speci men Type: BLOOD SPECIMEN Ordering Facility: [facility] Address: [address] [place] [address] Result Comment: If t he patient is , TSH reference range varies by gestational period: First Trimester (weeks 9-12): 0.180-2.990 mIU/L Second Trimester: 0.110-3.980 mIU/L Third Trimester: 0.480-4.710 mIU/L Migel Buckley et al. A Practical Approach for the Verifications and Determination of Site- and Trimester-Specific Reference Intervals for Thyroid Function tests in . Thyroid, 2019:29:3:412-420. Abdias Rowland, et al. 2017 Guidelines of the [place] [employer] for the Diagnosis and Management of Thyroid Disease during and the . Thyroid, 2017:27:3:315-389. Performed By: #### 3 016-3, 4498-2, 51554-8, 3023-08 #### [facility] CLIA [id number] [address] [place] [address] [place] XR CERVICAL 4V AP/LAT/OBLon 10-07-2024 XR CERVICAL 4V AP/LAT/OBL * * *Final Rep ort* * * DATE OF EXAM: Oct 07 2024 10:29AM AOX 5311 - XR CERVICAL 4V AP/LAT/OBL / PROCEDURE REASON: multiple diagnoses * * * * Physician Interpretation * * * * EXAMINATION / TECHNIQUE: XR CERVICAL 4V AP/LAT/OBL, XR SI JTS 2V AP PELV/CARABALLO, XR FOOT 3V AP/LAT/OBL MARIBELL, XR HAND 3V PA/LAT/OBL MARIBELL PATIENT/TECHNOLOGIST PROVIDED HISTORY: CLINICAL INFORMATION ( PROVIDED BY ORDERING CLINICIAN) : Acute anterior uveitis Polyarthralgia COMPARISON: None RESULT: Cervical spine: Counting reference: Craniocervical junction. Anatomic Variants: None. Normal cervical lordosis. No significant curvature. No significant spondylolisthesis. C1-C2 relationship is preserved. Vertebral body heights are preserved. No acute fracture is identified. Preserved disc spaces. Sacroiliac joints: Sacroiliac joint spaces are maintained bilaterally. No erosions, subarticular sclerosis, or ankylosis. Hip joint spaces are maintained also. Mild pubic symphysis mechanical degenerative changes. No fracture. Vascular stent projects over the right superior aspect of the pelvis. Hands: No erosions, chondrocalcinosis, or periostitis. Joint spaces are maintained bilaterally. No fracture or dislocation. Feet: No erosions, chondrocalcinosis, or periostitis. Joint spaces are maintained. 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 Minimal right and mild to moderate left hallux valgus. 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 No fracture or dislocation. Calcaneal enthesophytes bilaterally. IMPRESSION: No radiographic evidence for inflammatory arthritis. Shipping And Receiving Weigher[facility] Transcribe Date/Time: Oct 07 2024 10:52A Dictated by : JOHN REBOLLEDO MD This examination was interpreted and the report reviewed and electronically signed by: JOHN REBOLLEDO MD on Oct 07 2024 10:55AM EST [id number] Normal [facility] XR CHEST 2V FRONTAL/LATon XR CHEST 2V FRONTAL/LAT * * *Final Repor t* * * DATE OF EXAM: Oct 07 2024 10:29AM AOX 5291 - XR CHEST 2V FRONTAL/LAT / PROCEDURE REASON: multiple diagnoses * * * * Physician Interpretation * * * * EXAMINATION: CHEST RADIOGRAPH (2 VIEW FRONTAL and LATERAL) CLINICAL HISTORY: Acute anterior uveitis Polyarthralgia MQ: XC2_6 EXAM DATE/TIME: 10/07/2024 10:29 AM COMPARISON: No relevant prior studies available. RESULT: Lines, tubes, and devices: None. Lungs and pleura: No consolidation. No lung mass. No pleural effusion. No pneumothorax. Cardiomediastinal silhouette: Normal cardiomediastinal silhouette. Bones and soft tissues: Degenerative changes are present within the thoracic spine. IMPRESSION: No acute radiographic abnormality. Shipping And Receiving Weigher: P[facility] Transcribe Date/Time: Oct 07 2024 6:15P Dictated by : ARELY DUMONT MD This examination was interpreted and the report reviewed and electronically signed by: ARELY DUMONT MD on Oct 07 2024 6:16PM EST [id number] Normal [facility] XR Cervical spine AP and Lat eral and obliqueon 10-07-2024 * * *Final Report* * * DATE OF EXAM: Oct 07 2024 10:29AM AOX 5311 - XR CERVICAL 4V AP/LAT/OBL / PROCEDURE REASON: multiple diagnoses * * * * Physician Interpretation * * * * EXAMINATION / TECHNIQUE: XR CERVICAL 4V AP/LAT/OBL, XR SI JTS 2V AP PELV/CARABALLO, XR FOOT 3V AP/LAT/OBL MARIBELL, XR HAND 3V PA/LAT/OBL MARIBELL PATIENT/TECHNOLOGIST PROVIDED HISTORY: CLINICAL INFORMATION ( PROVIDED BY ORDERING CLINICIAN) : Acute anterior uveitis Polyarthralgia COMPARISON: None RESULT: Cervical spine: Counting reference: Craniocervical junction. Anatomic Variants: None. Normal cervical lordosis. No significant curvature. No significant spondylolisthesis. C1-C2 relationship is preserved. Vertebral body heights are preserved. No acute fracture is identified. Preserved disc spaces. Sacroiliac joints: Sacroiliac joint spaces are maintained bilaterally. No erosions, subarticular sclerosis, or ankylosis. Hip joint spaces are maintained also. Mild pubic symphysis mechanical degenerative changes. No fracture. Vascular stent projects over the right superior aspect of the pelvis. Hands: No erosions, chondrocalcinosis, or periostitis. Joint spaces are maintained bilaterally. No fracture or dislocation. Feet: No erosions, chondrocalcinosis, or periostitis. Joint spaces are maintained. 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 Minimal right and mild to moderate left hallux valgus. 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 No fracture or dislocation. Calcaneal enthesophytes bilaterally. DIVISION OF RADIOLOGY Provider, [facility] - 10/07/2024 * * *Final Report* * * DATE OF EXAM: Oct 07 2024 10:29AM AOX 5311 - XR CERVICAL 4V AP/LAT/OBL / PROCEDURE REASON: multiple diagnoses * * * * Physician Interpretation * * * * EXAMINATION / TECHNIQUE: XR CERVICAL 4V AP/LAT/OBL, XR SI JTS 2V AP PELV/CARABALLO, XR FOOT 3V AP/LAT/OBL MARIBELL, XR HAND 3V PA/LAT/OBL MARIBELL PATIENT/TECHNOLOGIST PROVIDED HISTORY: CLINICAL INFORMATION ( PROVIDED BY ORDERING CLINICIAN) : Acute anterior uveitis Polyarthralgia COMPARISON: None RESULT: Cervical spine: Counting reference: Craniocervical junction. Anatomic Variants: None. Normal cervical lordosis. No significant curvature. No significant spondylolisthesis. C1-C2 relationship is preserved. Vertebral body heights are preserved. No acute fracture is identified. Preserved disc spaces. Sacroiliac joints: Sacroiliac joint spaces are maintained bilaterally. No erosions, subarticular sclerosis, or ankylosis. Hip joint spaces are maintained also. Mild pubic symphysis mechanical degenerative changes. No fracture. Vascular stent projects over the right superior aspect of the pelvis. Hands: No erosions, chondrocalcinosis, or periostitis. Joint spaces are maintained bilaterally. No fracture or dislocation. Feet: No erosions, chondrocalcinosis, or periostitis. Joint spaces are maintained. 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 Minimal right and mild to moderate left hallux valgus. 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 No fracture or dislocation. Calcaneal enthesophytes bilaterally. IMPRESSION IMPRESSION: No radiographic evidence for inflammatory arthritis. Shipping And Receiving Weigher: SHAHEEN Transcribe Date/Time: Oct 07 2024 10:52A Dictated by : JOHN REBOLLEDO MD This examination was interpreted and the report reviewed and electronically signed by: JOHN REBOLLEDO MD on Oct 07 2024 10:55AM [facility] XR Chest PA and Lateralon 08 -08-2025 IMPRESSION: No acute radiographic abnormality. Shipping And Receiving Weigher: SHAHEEN Transcribe Date/Time: Oct 07 2024 6:15P Dictated by : ARELY DUMONT MD This examination was interpreted and the report reviewed and electronically signed by: ARELY DUMONT MD on Oct 07 2024 6:16PM [facility] DIVISION OF RADIOLOGY * * *Final Report* * * DATE OF EXAM: Oct 07 2024 10:29AM AOX 5291 - XR CHEST 2V FRONTAL/LAT / PROCEDURE REASON: multiple diagnoses * * * * Physician Interpretation * * * * EXAMINATION: CHEST RADIOGRAPH (2 VIEW FRONTAL & LATERAL) CLINICAL HISTORY: Acute anterior uveitis Polyarthralgia MQ: XC2_6 EXAM DATE/TIME: 10/07/2024 10:29 AM COMPARISON: No relevant prior studies available. RESULT: Lines, tubes, and devices: None. Lungs and pleura: No consolidation. No lung mass. No pleural effusion. No pneumothorax. Cardiomediastinal silhouette: Normal cardiomediastinal silhouette. Bones and soft tissues: Degenerative changes are present within the thoracic spine. DIVISION OF RADIOLOGY Provider, [facility] - 10/07/2024 * * *Final Report* * * DATE OF EXAM: Oct 07 2024 10:29AM AOX 5291 - XR CHEST 2V FRONTAL/LAT / PROCEDURE REASON: multiple diagnoses * * * * Physician Interpretation * * * * EXAMINATION: CHEST RADIOGRAPH (2 VIEW FRONTAL & LATERAL) CLINICAL HISTORY: Acute anterior uveitis Polyarthralgia MQ: XC2_6 EXAM DATE/TIME: 10/07/2024 10:29 AM COMPARISON: No relevant prior studies available. RESULT: Lines, tubes, and devices: None. Lungs and pleura: No consolidation. No lung mass. No pleural effusion. No pneumothorax. Cardiomediastinal silhouette: Normal cardiomediastinal silhouette. Bones and soft tissues: Degenerative changes are present within the thoracic spine. IMPRESSION IMPRESSION: No acute radiographic abnormality. Shipping And Receiving Weigher: SHAHEEN Transcribe Date/Time: Oct 07 2024 6:15P Dictated by : ARELY DUMONT MD This examination was interpreted and the report reviewed and electronically signed by: ARELY DUMONT MD on Oct 07 2024 6:16PM EST [facility] XR FOOT 3V AP/LAT/OBL BILon 10-07-2024 XR FOOT 3V AP/LAT/OBL MARIBELL * * *Final Rep ort* * * DATE OF EXAM: Oct 07 2024 10:29AM AOX 5555 - XR FOOT 3V AP/LAT/OBL MARIBELL / PROCEDURE REASON: multiple diagnoses * * * * Physician Interpretation * * * * EXAMINATION / TECHNIQUE: XR CERVICAL 4V AP/LAT/OBL, XR SI JTS 2V AP PELV/CARABALLO, XR FOOT 3V AP/LAT/OBL MARIBELL, XR HAND 3V PA/LAT/OBL MARIBELL PATIENT/TECHNOLOGIST PROVIDED HISTORY: CLINICAL INFORMATION ( PROVIDED BY ORDERING CLINICIAN) : Acute anterior uveitis Polyarthralgia COMPARISON: None RESULT: Cervical spine: Counting reference: Craniocervical junction. Anatomic Variants: None. Normal cervical lordosis. No significant curvature. No significant spondylolisthesis. C1-C2 relationship is preserved. Vertebral body heights are preserved. No acute fracture is identified. Preserved disc spaces. Sacroiliac joints: Sacroiliac joint spaces are maintained bilaterally. No erosions, subarticular sclerosis, or ankylosis. Hip joint spaces are maintained also. Mild pubic symphysis mechanical degenerative changes. No fracture. Vascular stent projects over the right superior aspect of the pelvis. Hands: No erosions, chondrocalcinosis, or periostitis. Joint spaces are maintained bilaterally. No fracture or dislocation. Feet: No erosions, chondrocalcinosis, or periostitis. Joint spaces are maintained. 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 Minimal right and mild to moderate left hallux valgus. 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 No fracture or dislocation. Calcaneal enthesophytes bilaterally. IMPRESSION: No radiographic evidence for inflammatory arthritis. Shipping And Receiving Weigher: PSCB Transcribe Date/Time: Oct 07 2024 10:52A Dictated by : JOHN REBOLLEDO MD This examination was interpreted and the report reviewed and electronically signed by: JOHN REBOLLEDO MD on Oct 07 2024 10:55AM EST [id number] Normal [facility] XR Foot - bilateral AP and L ateral and obliqueon 10-07-2024 * * *Final Report* * * DATE OF EXAM: Oct 07 2024 10:29AM AOX 5555 - XR FOOT 3V AP/LAT/OBL MARIBELL / PROCEDURE REASON: multiple diagnoses * * * * Physician Interpretation * * * * EXAMINATION / TECHNIQUE: XR CERVICAL 4V AP/LAT/OBL, XR SI JTS 2V AP PELV/CARABALLO, XR FOOT 3V AP/LAT/OBL MARIBELL, XR HAND 3V PA/LAT/OBL MARIBELL PATIENT/TECHNOLOGIST PROVIDED HISTORY: CLINICAL INFORMATION ( PROVIDED BY ORDERING CLINICIAN) : Acute anterior uveitis Polyarthralgia COMPARISON: None RESULT: Cervical spine: Counting reference: Craniocervical junction. Anatomic Variants: None. Normal cervical lordosis. No significant curvature. No significant spondylolisthesis. C1-C2 relationship is preserved. Vertebral body heights are preserved. No acute fracture is identified. Preserved disc spaces. Sacroiliac joints: Sacroiliac joint spaces are maintained bilaterally. No erosions, subarticular sclerosis, or ankylosis. Hip joint spaces are maintained also. Mild pubic symphysis mechanical degenerative changes. No fracture. Vascular stent projects over the right superior aspect of the pelvis. Hands: No erosions, chondrocalcinosis, or periostitis. Joint spaces are maintained bilaterally. No fracture or dislocation. Feet: No erosions, chondrocalcinosis, or periostitis. Joint spaces are maintained. 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 Minimal right and mild to moderate left hallux valgus. 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 No fracture or dislocation. Calcaneal enthesophytes bilaterally. DIVISION OF RADIOLOGY Provider, [facility] - 10/07/2024 * * *Final Report* * * DATE OF EXAM: Oct 07 2024 10:29AM AOX 5555 - XR FOOT 3V AP/LAT/OBL MARIBELL / PROCEDURE REASON: multiple diagnoses * * * * Physician Interpretation * * * * EXAMINATION / TECHNIQUE: XR CERVICAL 4V AP/LAT/OBL, XR SI JTS 2V AP PELV/CARABALLO, XR FOOT 3V AP/LAT/OBL MARIBELL, XR HAND 3V PA/LAT/OBL MARIBELL PATIENT/TECHNOLOGIST PROVIDED HISTORY: CLINICAL INFORMATION ( PROVIDED BY ORDERING CLINICIAN) : Acute anterior uveitis Polyarthralgia COMPARISON: None RESULT: Cervical spine: Counting reference: Craniocervical junction. Anatomic Variants: None. Normal cervical lordosis. No significant curvature. No significant spondylolisthesis. C1-C2 relationship is preserved. Vertebral body heights are preserved. No acute fracture is identified. Preserved disc spaces. Sacroiliac joints: Sacroiliac joint spaces are maintained bilaterally. No erosions, subarticular sclerosis, or ankylosis. Hip joint spaces are maintained also. Mild pubic symphysis mechanical degenerative changes. No fracture. Vascular stent projects over the right superior aspect of the pelvis. Hands: No erosions, chondrocalcinosis, or periostitis. Joint spaces are maintained bilaterally. No fracture or dislocation. Feet: No erosions, chondrocalcinosis, or periostitis. Joint spaces are maintained. 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 Minimal right and mild to moderate left hallux valgus. 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 No fracture or dislocation. Calcaneal enthesophytes bilaterally. IMPRESSION IMPRESSION: No radiographic evidence for inflammatory arthritis. Shipping And Receiving Weigher[facility] Transcribe Date/Time: Oct 07 2024 10:52A Dictated by : JOHN REBOLLEDO MD This examination was interpreted and the report reviewed and electronically signed by: JOHN REBOLLEDO MD on Oct 07 2024 10:55AM [facility] XR HAND 3V PA/LAT/OBL BILon 10-07-2024 XR HAND 3V PA/LAT/OBL MARIBELL * * *Final Rep ort* * * DATE OF EXAM: Oct 07 2024 10:29AM AOX 5556 - XR HAND 3V PA/LAT/OBL MARIBELL / PROCEDURE REASON: multiple diagnoses * * * * Physician Interpretation * * * * EXAMINATION / TECHNIQUE: XR CERVICAL 4V AP/LAT/OBL, XR SI JTS 2V AP PELV/CARABALLO, XR FOOT 3V AP/LAT/OBL MARIBELL, XR HAND 3V PA/LAT/OBL MARIBELL PATIENT/TECHNOLOGIST PROVIDED HISTORY: CLINICAL INFORMATION ( PROVIDED BY ORDERING CLINICIAN) : Acute anterior uveitis Polyarthralgia COMPARISON: None RESULT: Cervical spine: Counting reference: Craniocervical junction. Anatomic Variants: None. Normal cervical lordosis. No significant curvature. No significant spondylolisthesis. C1-C2 relationship is preserved. Vertebral body heights are preserved. No acute fracture is identified. Preserved disc spaces. Sacroiliac joints: Sacroiliac joint spaces are maintained bilaterally. No erosions, subarticular sclerosis, or ankylosis. Hip joint spaces are maintained also. Mild pubic symphysis mechanical degenerative changes. No fracture. Vascular stent projects over the right superior aspect of the pelvis. Hands: No erosions, chondrocalcinosis, or periostitis. Joint spaces are maintained bilaterally. No fracture or dislocation. Feet: No erosions, chondrocalcinosis, or periostitis. Joint spaces are maintained. 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 Minimal right and mild to moderate left hallux valgus. 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 No fracture or dislocation. Calcaneal enthesophytes bilaterally. IMPRESSION: No radiographic evidence for inflammatory arthritis. Shipping And Receiving Weigher: SHAHEEN Transcribe Date/Time: Oct 07 2024 10:52A Dictated by : JOHN REBOLLEDO MD This examination was interpreted and the report reviewed and electronically signed by: JOHN REBOLLEDO MD on Oct 07 2024 10:55AM EST [id number] Normal [facility] XR Hand - bilateral PA and L ateral and Obliqueon 10-07-2024 * * *Final Report* * * DATE OF EXAM: Oct 07 2024 10:29AM AOX 5556 - XR HAND 3V PA/LAT/OBL MARIBELL / PROCEDURE REASON: multiple diagnoses * * * * Physician Interpretation * * * * EXAMINATION / TECHNIQUE: XR CERVICAL 4V AP/LAT/OBL, XR SI JTS 2V AP PELV/CARABALLO, XR FOOT 3V AP/LAT/OBL MARIBELL, XR HAND 3V PA/LAT/OBL MARIBELL PATIENT/TECHNOLOGIST PROVIDED HISTORY: CLINICAL INFORMATION ( PROVIDED BY ORDERING CLINICIAN) : Acute anterior uveitis Polyarthralgia COMPARISON: None RESULT: Cervical spine: Counting reference: Craniocervical junction. Anatomic Variants: None. Normal cervical lordosis. No significant curvature. No significant spondylolisthesis. C1-C2 relationship is preserved. Vertebral body heights are preserved. No acute fracture is identified. Preserved disc spaces. Sacroiliac joints: Sacroiliac joint spaces are maintained bilaterally. No erosions, subarticular sclerosis, or ankylosis. Hip joint spaces are maintained also. Mild pubic symphysis mechanical degenerative changes. No fracture. Vascular stent projects over the right superior aspect of the pelvis. Hands: No erosions, chondrocalcinosis, or periostitis. Joint spaces are maintained bilaterally. No fracture or dislocation. Feet: No erosions, chondrocalcinosis, or periostitis. Joint spaces are maintained. 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 Minimal right and mild to moderate left hallux valgus. 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 No fracture or dislocation. Calcaneal enthesophytes bilaterally. DIVISION OF RADIOLOGY Provider, [facility] - 10/07/2024 * * *Final Report* * * DATE OF EXAM: Oct 07 2024 10:29AM AOX 5556 - XR HAND 3V PA/LAT/OBL MARIBELL / PROCEDURE REASON: multiple diagnoses * * * * Physician Interpretation * * * * EXAMINATION / TECHNIQUE: XR CERVICAL 4V AP/LAT/OBL, XR SI JTS 2V AP PELV/CARABALLO, XR FOOT 3V AP/LAT/OBL MARIBELL, XR HAND 3V PA/LAT/OBL MARIBELL PATIENT/TECHNOLOGIST PROVIDED HISTORY: CLINICAL INFORMATION ( PROVIDED BY ORDERING CLINICIAN) : Acute anterior uveitis Polyarthralgia COMPARISON: None RESULT: Cervical spine: Counting reference: Craniocervical junction. Anatomic Variants: None. Normal cervical lordosis. No significant curvature. No significant spondylolisthesis. C1-C2 relationship is preserved. Vertebral body heights are preserved. No acute fracture is identified. Preserved disc spaces. Sacroiliac joints: Sacroiliac joint spaces are maintained bilaterally. No erosions, subarticular sclerosis, or ankylosis. Hip joint spaces are maintained also. Mild pubic symphysis mechanical degenerative changes. No fracture. Vascular stent projects over the right superior aspect of the pelvis. Hands: No erosions, chondrocalcinosis, or periostitis. Joint spaces are maintained bilaterally. No fracture or dislocation. Feet: No erosions, chondrocalcinosis, or periostitis. Joint spaces are maintained. 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 Minimal right and mild to moderate left hallux valgus. 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 No fracture or dislocation. Calcaneal enthesophytes bilaterally. IMPRESSION IMPRESSION: No radiographic evidence for inflammatory arthritis. Shipping And Receiving Weigher: SHAHEEN Transcribe Date/Time: Oct 07 2024 10:52A Dictated by : JOHN REBOLLEDO MD This examination was interpreted and the report reviewed and electronically signed by: JOHN REBOLLEDO MD on Oct 07 2024 10:55AM [facility] XR SI JTS 2V AP PELV/FERGUSO Non 10-07-2024 XR SI JTS 2V AP PELV/CARABALLO * * *Final Report* * * DATE OF EXAM: Oct 07 2024 10:29AM AOX 5245 - XR SI JTS 2V AP PELV/CARABALLO / PROCEDURE REASON: multiple diagnoses * * * * Physician Interpretation * * * * EXAMINATION / TECHNIQUE: XR CERVICAL 4V AP/LAT/OBL, XR SI JTS 2V AP PELV/CARABALLO, XR FOOT 3V AP/LAT/OBL MARIBELL, XR HAND 3V PA/LAT/OBL MARIBELL PATIENT/TECHNOLOGIST PROVIDED HISTORY: CLINICAL INFORMATION ( PROVIDED BY ORDERING CLINICIAN) : Acute anterior uveitis Polyarthralgia COMPARISON: None RESULT: Cervical spine: Counting reference: Craniocervical junction. Anatomic Variants: None. Normal cervical lordosis. No significant curvature. No significant spondylolisthesis. C1-C2 relationship is preserved. Vertebral body heights are preserved. No acute fracture is identified. Preserved disc spaces. Sacroiliac joints: Sacroiliac joint spaces are maintained bilaterally. No erosions, subarticular sclerosis, or ankylosis. Hip joint spaces are maintained also. Mild pubic symphysis mechanical degenerative changes. No fracture. Vascular stent projects over the right superior aspect of the pelvis. Hands: No erosions, chondrocalcinosis, or periostitis. Joint spaces are maintained bilaterally. No fracture or dislocation. Feet: No erosions, chondrocalcinosis, or periostitis. Joint spaces are maintained. 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 Minimal right and mild to moderate left hallux valgus. 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 No fracture or dislocation. Calcaneal enthesophytes bilaterally. IMPRESSION: No radiographic evidence for inflammatory arthritis. Shipping And Receiving Weigher: [facility] Transcribe Date/Time: Oct 07 2024 10:52A Dictated by : JOHN REBOLLEDO MD This examination was interpreted and the report reviewed and electronically signed by: JOHN REBOLLEDO MD on Oct 07 2024 10:55AM EST [id number] Normal [facility] XR Sacroiliac Joint Viewson 10-07-2024 * * *Final Report* * * DATE OF EXAM: Oct 07 2024 10:29AM AOX 5245 - XR SI JTS 2V AP PELV/CARABALLO / PROCEDURE REASON: multiple diagnoses * * * * Physician Interpretation * * * * EXAMINATION / TECHNIQUE: XR CERVICAL 4V AP/LAT/OBL, XR SI JTS 2V AP PELV/CARABALLO, XR FOOT 3V AP/LAT/OBL MARIBELL, XR HAND 3V PA/LAT/OBL MARIBELL PATIENT/TECHNOLOGIST PROVIDED HISTORY: CLINICAL INFORMATION ( PROVIDED BY ORDERING CLINICIAN) : Acute anterior uveitis Polyarthralgia COMPARISON: None RESULT: Cervical spine: Counting reference: Craniocervical junction. Anatomic Variants: None. Normal cervical lordosis. No significant curvature. No significant spondylolisthesis. C1-C2 relationship is preserved. Vertebral body heights are preserved. No acute fracture is identified. Preserved disc spaces. Sacroiliac joints: Sacroiliac joint spaces are maintained bilaterally. No erosions, subarticular sclerosis, or ankylosis. Hip joint spaces are maintained also. Mild pubic symphysis mechanical degenerative changes. No fracture. Vascular stent projects over the right superior aspect of the pelvis. Hands: No erosions, chondrocalcinosis, or periostitis. Joint spaces are maintained bilaterally. No fracture or dislocation. Feet: No erosions, chondrocalcinosis, or periostitis. Joint spaces are maintained. 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 Minimal right and mild to moderate left hallux valgus. 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 No fracture or dislocation. Calcaneal enthesophytes bilaterally. DIVISION OF RADIOLOGY Provider, [facility] - 10/07/2024 * * *Final Report* * * DATE OF EXAM: Oct 07 2024 10:29AM AOX 5245 - XR SI JTS 2V AP PELV/CARABALLO / PROCEDURE REASON: multiple diagnoses * * * * Physician Interpretation * * * * EXAMINATION / TECHNIQUE: XR CERVICAL 4V AP/LAT/OBL, XR SI JTS 2V AP PELV/CARABALLO, XR FOOT 3V AP/LAT/OBL MARIBELL, XR HAND 3V PA/LAT/OBL MARIBELL PATIENT/TECHNOLOGIST PROVIDED HISTORY: CLINICAL INFORMATION ( PROVIDED BY ORDERING CLINICIAN) : Acute anterior uveitis Polyarthralgia COMPARISON: None RESULT: Cervical spine: Counting reference: Craniocervical junction. Anatomic Variants: None. Normal cervical lordosis. No significant curvature. No significant spondylolisthesis. C1-C2 relationship is preserved. Vertebral body heights are preserved. No acute fracture is identified. Preserved disc spaces. Sacroiliac joints: Sacroiliac joint spaces are maintained bilaterally. No erosions, subarticular sclerosis, or ankylosis. Hip joint spaces are maintained also. Mild pubic symphysis mechanical degenerative changes. No fracture. Vascular stent projects over the right superior aspect of the pelvis. Hands: No erosions, chondrocalcinosis, or periostitis. Joint spaces are maintained bilaterally. No fracture or dislocation. Feet: No erosions, chondrocalcinosis, or periostitis. Joint spaces are maintained. 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 Minimal right and mild to moderate left hallux valgus. 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 No fracture or dislocation. Calcaneal enthesophytes bilaterally. IMPRESSION IMPRESSION: No radiographic evidence for inflammatory arthritis. Shipping And Receiving Weigher: SHAHEEN Transcribe Date/Time: Oct 07 2024 10:52A Dictated by : JOHN REBOLLEDO MD This examination was interpreted and the report reviewed and electronically signed by: JOHN REBOLLEDO MD on Oct 07 2024 10:55AM EST [facility] cCP IgG SerPl-aCncon 025 Cyclic citrullinated peptide IgG Qn >250 High <20 [facility] Comment on above: Order Comment: Speci men Type: BLOOD SPECIMEN Ordering Facility: [facility] Address: [address] [place] [address] Performed By: #### 3 016-3, 4498-2, 76869-3, 3024-7 #### [facility] CLIA [id number] [facility] MR/BMS.BVSon 07-20-2024 MR/BMS.BVS Normal [facility] D/C Summary- SPon 07-18-2024 D/C Summary- SP Normal [facility] Anion gap in Serum or Plasma Ordered By: Marck Thompson on 06-29-2024 Anion gap [Moles/Vol] 10 mmol/L 5-15 [facility] BUN/creatinine ratioOrdered By: Marck Thompson on 06-29-2024 Urea nitrogen/Creatinine [Mass ratio] 24.3 mg/mg High 10-20 [facility] Basic Metabolic Profile (BMP )on 06-29-2024 BUN/CRE 24.3 RATIO High - [facility] Comment on above: Performed By: #### L 100.0500, L500.2500 ####[facility] [address] [place], [address] Calcium [Mass/Vol] 9.7 mg/dL Normal 7.6-11.0 [facility] Comment on above: Performed By: #### L 100.0500, L500.2500 ####[facility] [address] [place], [address] Chloride [Moles/Vol] 106 mmol/L Normal 98-108 [facility] Comment on above: Performed By: #### L 100.0500, L500.2500 ####[facility] [address] [place], [address] CO2 [Moles/Vol] 22.6 mmol/L Normal 21.0-32.0 [facility] Comment on above: Performed By: #### L 100.0500, L500.2500 ####[facility] [address] [place], [address] Creatinine [Mass/Vol] 0.61 mg/dL Low 0.70-1.20 [facility] Comment on above: Performed By: #### L 100.0500, L500.2500 ####[facility] [address] [place], [address] ECRCL 149.73 ml/min Normal 50-250 [facility] Comment on above: Performed By: #### L 100.0500, L500.2500 ####[facility] [address] [place], [address] GAP 10 Normal 5-15 [facility] Comment on above: Performed By: #### L 100.0500, L500.2500 ####[facility] [address] [place], [address] GFR/1.73 sq M.predicted among non-blacks MDRD (S/P/Bld) [Vol rate/Area] 111 mL/min/{1.73_m2} Normal >60 [facility] Comment on above: Result Comment: mL/m in/1.73m2 CKD-EPI Creatinine Equation (2020) Performed By: #### L 100.0500, L500.2500 ####[facility] [address] [place], [address] Glucose [Mass/Vol] 84 mg/dL Normal 70-99 [facility] Comment on above: Performed By: #### L 100.0500, L500.2500 ####[facility] [address] [place], [address] Potassium [Moles/Vol] 3.9 mmol/L Normal 3.3-5.1 [facility] Comment on above: Performed By: #### L 100.0500, L500.2500 ####[facility] [address] [place], [address] Sodium [Moles/Vol] 138 mmol/L Normal 133-145 [facility] Comment on above: Performed By: #### L 100.0500, L500.2500 ####[facility] [address] [place], [address] Urea nitrogen [Mass/Vol] 15 mg/dL Normal 4-19 [facility] Comment on above: Performed By: #### L 100.0500, L500.2500 ####[facility] [address] [place], [address] CBC-Complete Blood Cnt No Di ffon 06-29-2024 Erythrocyte distribution width (RBC) [Ratio] 13.8 % Normal 11.6-14.6 [facility] Comment on above: Performed By: #### L 100.0500, L500.2500 ####[facility] [address] [place], [address] Hematocrit (Bld) [Volume fraction] 35.5 % Low 37-47 [facility] Comment on above: Performed By: #### L 100.0500, L500.2500 ####[facility] [address] [place], [address] Hemoglobin (Bld) [Mass/Vol] 11.5 g/dL Low 12.0-15.0 [facility] Comment on above: Performed By: #### L 100.0500, L500.2500 ####[facility] [address] [place], [address] MCH (RBC) [Entitic mass] 26.1 pg Low 27.0-32.0 [facility] Comment on above: Performed By: #### L 100.0500, L500.2500 ####[facility] [address] [place], [address] MCHC (RBC) [Mass/Vol] 32.4 g/dL Normal 32-36 [facility] Comment on above: Performed By: #### L 100.0500, L500.2500 ####[facility] [address] [place], [address] MCV (RBC) [Entitic vol] 80.5 fL Low 81-99 [facility] Comment on above: Performed By: #### L 100.0500, L500.2500 ####[facility] [address] [place], [address] Platelet mean volume (Bld) [Entitic vol] 9.1 fL Normal 6.2-12.0 [facility] [facility] Comment on above: Performed By: #### L 100.0500, L500.2500 ####[facility] [address] [place], [address] Platelets (Bld) [#/Vol] 323 10*3/uL Normal 150-450 [facility] Comment on above: Performed By: #### L 100.0500, L500.2500 ####[facility] [address] [place], [address] RBC (Bld) [#/Vol] 4.41 10*6/uL Normal 4.2-5.4 [facility] Comment on above: Performed By: #### L 100.0500, L500.2500 ####[facility] [address] [place], [address] RDW SD 40.0 fl Normal 35.1-43.9 [facility] Comment on above: Performed By: #### L 100.0500, L500.2500 ####[facility] [address] [place], [address] WBC (Bld) [#/Vol] 10.2 10*3/uL Normal 4.4-11.0 [facility] Comment on above: Performed By: #### L 100.0500, L500.2500 ####[facility] [address] [place], [address] Carbon dioxide, total [Moles /volume] in Central venous bloodOrdered By: Marck Thompson on 06-29-2024 CO2 [Moles/Vol] 22.6 mmol/L 21.0-32.0 [facility] Chloride assayOrdered By: Sai Thompson on 06-29-2024 Chloride [Moles/Vol] 106 mmol/L 98-108 [facility] Erythrocyte distribution wid th ratioOrdered By: Marck Thompson on 06-29-2024 Erythrocyte distribution width (RBC) [Ratio] 13.8 % 11.6-14.6 [facility] Erythrocyte distribution wid th standard deviationOrdered By: Marck Thompson on 06-29-2024 Erythrocyte distribution width (RBC) [Ratio] 40.0 fl 35.1-43.9 [facility] Glomerular filtration rate ( GFR) estimation/1.73 sq m using serum, plasma, or whole bOrdered By: Marck Thompson on 06-29-2024 GFR/1.73 sq M.predicted among non-blacks MDRD (S/P/Bld) [Vol rate/Area] 111 mL/min/{1.73_m2} >60 [facility] Comment on above: mL/min/1.73m2 CKD-EP I Creatinine Equation (2020) Hematocrit Auto (Bld) [Volum e fraction]Ordered By: Marck Thompson on 06-29-2024 Hematocrit (Bld) [Volume fraction] 35.5 % Low 37-47 [facility] Hemoglobin measurementOrdere d By: Marck Thompson 06-29-2024 Hemoglobin (Bld) [Mass/Vol] 11.5 g/dL Low 12.0-15.0 [facility] MCV (mean corpuscular volume ) determinationOrdered By: Marck Thompson 06-29-2024 MCV (RBC) [Entitic vol] 80.5 fL Low 81-99 [facility] Mean corpuscular hemoglobin (MCH) determinationOrdered By: Marck Thompson 06-29-2024 MCH (RBC) [Entitic mass] 26.1 pg Low 27.0-32.0 [facility] Mean corpuscular hemoglobin concentration (MCHC) determinationOrdered By: Marck Thompson 06-29-2024 MCHC (RBC) [Mass/Vol] 32.4 g/dL 32-36 [facility] Mean platelet volume determi nationOrdered By: Marck Thompson 06-29-2024 Platelet mean volume (Bld) [Entitic vol] 9.1 fL 6.2-12.0 [facility] Operative Reporton Operative Report Normal [facility] Platelet countOrdered By: Sai Thompson on 06-29-2024 Platelets (Bld) [#/Vol] 323 10*3/uL 150-450 [facility] Potassium measurement (mass/ volume)Ordered By: Marck Thompson on 06-29-2024 Potassium (Unsp spec) [Mass/Vol] 3.9 mmol/L 3.3-5.1 [facility] RBC Auto (Bld) [#/Vol]Ordere d By: Marck Thompson on 06-29-2024 RBC (Bld) [#/Vol] 4.41 10*6/uL 4.2-5.4 [facility] Serum creatinine measurement (mass/volume)Ordered By: Marck Thompson on 06-29-2024 Creatinine [Mass/Vol] 0.61 mg/dL Low 0.70-1.20 [facility] Serum glucose measurement (m ass/volume)Ordered By: Marck Thompson on 06-29-2024 Glucose [Mass/Vol] 84 mg/dL 70-99 [facility] Serum or plasma calcium lizzeth urement (mass/volume)Ordered By: Marck Tohmpson on 06-29-2024 Calcium [Mass/Vol] 9.7 mg/dL 7.6-11.0 [facility] Serum or plasma urea nitroge n measurement (mass/volume)Ordered By: Marck Thompson on 06-29-2024 Urea nitrogen [Mass/Vol] 15 mg/dL 4-19 [facility] Sodium levelOrdered By: Marck Thompson on 06-29-2024 Sodium [Moles/Vol] 138 mmol/L 133-145 [facility] White blood cell (WBC) count Ordered By: Marck Thompson on 06-29-2024 WBC (Bld) [#/Vol] 10.2 10*3/uL 4.4-11.0 [facility] Absolute lymphocyte countOrd ered By: Dinora Weiss on 06-27-2024 Lymphocytes Auto (Unsp spec) [#/Vol] 3.46 10*3/uL 0.83-4.51 [facility] Absolute neutrophil countOrd ered By: Dinora Weiss on 06-27-2024 Neutrophils (Bld) [#/Vol] 7.4 10*3/uL 2.0-7.7 [facility] Anion gap in Serum or Plasma Ordered By: Dinora Weiss on 06-27-2024 Anion gap [Moles/Vol] 12 mmol/L 5- [facility] Automated lymphocyte count a s percentage of total leukocytesOrdered By: Dinora Weiss on 06-27-2024 Lymphocytes/100 WBC Auto (Unsp spec) 29.5 % [facility] BUN/creatinine ratioOrdered By: Dinora Weiss on 06-27-2024 Urea nitrogen/Creatinine [Mass ratio] 18.0 mg/mg - [facility] Basic Metabolic Profile (BMP )on 06-27-2024 BUN/CRE 18.0 RATIO Normal 12-19 [facility] Comment on above: Performed By: #### L 500.2500, L100.0100 ####[facility] [address] [place], [address] Calcium [Mass/Vol] 9.8 mg/dL Normal 7.6-11.0 [facility] Comment on above: Performed By: #### L 500.2500, L100.0100 ####[facility] [address] [place], [address] Chloride [Moles/Vol] 105 mmol/L Normal 98-108 [facility] Comment on above: Performed By: #### L 500.2500, L100.0100 ####[facility] [address] [place], [address] CO2 [Moles/Vol] 22.6 mmol/L Normal 21.0-32.0 [facility] Comment on above: Performed By: #### L 500.2500, L100.0100 ####[facility] [address] [place], [address] Creatinine [Mass/Vol] 0.86 mg/dL Normal 0.70-1.20 [facility] Comment on above: Performed By: #### L 500.2500, L100.0100 ####[facility] [address] [place], [address] ECRCL 106.46 ml/min Normal 50-250 [facility] Comment on above: Performed By: #### L 500.2500, L100.0100 ####[facility] [address] [place], [address] GAP 12 Normal 5-15 [facility] Comment on above: Performed By: #### L 500.2500, L100.0100 ####[facility] [address] [place], [address] GFR/1.73 sq M.predicted among non-blacks MDRD (S/P/Bld) [Vol rate/Area] 84 mL/min/{1.73_m2} Normal >60 [facility] Comment on above: Result Comment: mL/m in/1.73m2 CKD-EPI Creatinine Equation (2020) Performed By: #### L 500.2500, L100.0100 ####[facility] [address] [place], [address] Glucose [Mass/Vol] 84 mg/dL Normal 70-99 [facility] Comment on above: Performed By: #### L 500.2500, L100.0100 ####[facility] [address] [place], [address] Potassium [Moles/Vol] 3.4 mmol/L Normal 3.3-5.1 [facility] Comment on above: Performed By: #### L 500.2500, L100.0100 ####[facility] [address] [place], [address] Sodium [Moles/Vol] 139 mmol/L Normal 133-145 [facility] Comment on above: Performed By: #### L 500.2500, L100.0100 ####[facility] [address] [place], [address] Urea nitrogen [Mass/Vol] 16 mg/dL Normal 4-19 [facility] Comment on above: Performed By: #### L 500.2500, L100.0100 ####[facility] [address] [place], [address] Basophil percentageOrdered B y: Dinora Weiss on 06-27-2024 Basophils/100 WBC (Bld) 0.4 % 0-1 [facility] Bilirubin Test strip Ql (U)O rdered By: Dinora Weiss on 06-27-2024 Bilirubin Ql (U) Negative Negative [facility] CBC W/Diff, Automatedon 06-01 Absolute Lymph 3.46 X10 3/uL Normal 0.83-4.51 [facility] Comment on above: Performed By: #### L 500.2500, L100.0100 ####[facility] [address] [place], [address] Absolute Neut 7.4 X10 3/uL Normal 2.0-7.7 [facility] Comment on above: Performed By: #### L 500.2500, L100.0100 ####[facility] [address] [place], [address] Basophils/100 WBC (Bld) 0.4 % Normal 0-1 [facility] Comment on above: Performed By: #### L 500.2500, L100.0100 ####[facility] [address] [place], [address] Eosinophils/100 WBC (Bld) 0.5 % Normal 0-5 [facility] Comment on above: Performed By: #### L 500.2500, L100.0100 ####[facility] [address] [place], [address] Erythrocyte distribution width (RBC) [Ratio] 13.7 % Normal 11.6-14.6 [facility] Comment on above: Performed By: #### L 500.2500, L100.0100 ####[facility] [address] [place], [address] Hematocrit (Bld) [Volume fraction] 34.9 % Low 37-47 [facility] Comment on above: Performed By: #### L 500.2500, L100.0100 ####[facility] [address] [place], [address] Hemoglobin (Bld) [Mass/Vol] 11.4 g/dL Low 12.0-15.0 [facility] Comment on above: Performed By: #### L 500.2500, L100.0100 ####[facility] [address] [place], [address] IG% 0.400 Normal 0.0-0.9 [facility] Comment on above: Result Comment: IG% - Immature Granulocytes (promyelocytes, myelocytes andmetamyelocytes) > 1% indicates that a LEFT SHIFT is Present. Performed By: #### L 500.2500, L100.0100 ####[facility] [address] [place], [address] Lymphocytes/100 WBC (Bld) 29.5 % Normal 19-41 [facility] Comment on above: Performed By: #### L 500.2500, L100.0100 ####[facility] [address] [place], [address] MCH (RBC) [Entitic mass] 26.3 pg Low 27.0-32.0 [facility] Comment on above: Performed By: #### L 500.2500, L100.0100 ####[facility] [address] [place], [address] MCHC (RBC) [Mass/Vol] 32.7 g/dL Normal 32-36 [facility] Comment on above: Performed By: #### L 500.2500, L100.0100 ####[facility] [address] [place], [address] MCV (RBC) [Entitic vol] 80.6 fL Low 81-99 [facility] Comment on above: Performed By: #### L 500.2500, L100.0100 ####[facility] [address] [place], [address] Monocytes/100 WBC (Bld) 6.1 % Normal 0-10 [facility] Comment on above: Performed By: #### L 500.2500, L100.0100 ####[facility] [address] [place], [address] Neutrophils/100 WBC (Bld) 63.1 % Normal 47-70 [facility] Comment on above: Performed By: #### L 500.2500, L100.0100 ####[facility] [address] [place], [address] Nucleated RBC (Bld) [#/Vol] 0 10*3/uL Normal 0-5 [facility] Comment on above: Performed By: #### L 500.2500, L100.0100 ####[facility] [address] [place], [address] Platelet mean volume (Bld) [Entitic vol] 9.1 fL Normal 6.2-12.0 [facility] Comment on above: Performed By: #### L 500.2500, L100.0100 ####[facility] [address] [place], [address] Platelets (Bld) [#/Vol] 334 10*3/uL Normal 150-450 [facility] Comment on above: Performed By: #### L 500.2500, L100.0100 ####[facility] [address] [place], [address] RBC (Bld) [#/Vol] 4.33 10*6/uL Normal 4.2-5.4 [facility] Comment on above: Performed By: #### L 500.2500, L100.0100 ####[facility] [address] [place], [address] RDW SD 40.2 fl Normal 35.1-43.9 [facility] Comment on above: Performed By: #### L 500.2500, L100.0100 ####[facility] [address] [place], [address] WBC (Bld) [#/Vol] 11.7 10*3/uL High 4.4-11.0 [facility] Comment on above: Performed By: #### L 500.2500, L100.0100 ####[facility] [address] [place], [address] Carbon dioxide, total [Moles /volume] in Central venous bloodOrdered By: Dinora Weiss on 06-27-2024 CO2 [Moles/Vol] 22.6 mmol/L 21.0-32.0 [facility] Chloride assayOrdered By: Moira Weiss on 06-27-2024 Chloride [Moles/Vol] 105 mmol/L 98-108 [facility] Emergency Department Summary on 06-27-2024 Emergency Department Summary Normal [facility] Eosinophil percentageOrdered By: Dinora Weiss on 06-27-2024 Eosinophils/100 WBC (Bld) 0.5 % 0-5 [facility] Epithelial cells.squamous LM Ql (Urine sed)Ordered By: Dinora Weiss on 06-27-2024 Epithelial cells.squamous LM.HPF (Urine sed) [#/Area] 0 /[HPF] 5-10 [facility] Erythrocyte distribution wid th (RBC) [Ratio]Ordered By: Dinora Weiss on 06-27-2024 Erythrocyte distribution width (RBC) [Entitic vol] 40.2 fL 35.1-43.9 [facility] Erythrocyte distribution wid th ratioOrdered By: Dinora Weiss on 06-27-2024 Erythrocyte distribution width (RBC) [Ratio] 13.7 % 11.6-14.6 [facility] Erythrocyte distribution wid th standard deviationOrdered By: Dinora Weiss on 06-27-2024 Erythrocyte distribution width (RBC) [Ratio] 40.2 fl 35.1-43.9 [facility] Estimation of creatinine orin aranceOrdered By: Dinora Weiss on 06-27-2024 Estimated Creatinine Clearance Calc 106.46 ml/min 50-250 [facility] GFR/1.73 sq M.predicted joan g non-blacks MDRD (S/P/Bld) [Vol rate/Area]Ordered By: Dinora Weiss on 06-27-2024 Estimated GFR (MDRD) Non-Af Amer 84 >60 [facility] Comment on above: mL/min/1.73m2 CKD-EP I Creatinine Equation (2020) Glomerular filtration rate ( GFR) estimation/1.73 sq m using serum, plasma, or whole bOrdered By: Dinora Weiss on 06-27-2024 GFR/1.73 sq M.predicted among non-blacks MDRD (S/P/Bld) [Vol rate/Area] 84 mL/min/{1.73_m2} >60 [facility] Comment on above: mL/min/1.73m2 CKD-EP I Creatinine Equation (2020) Glucose Ql (U)Ordered By: Moira Weiss on 06-27-2024 Urine Glucose (UA) Normal mg/dl Normal [facility] Hematocrit Auto (Bld) [Volum e fraction]Ordered By: Dinora Weiss on 06-27-2024 Hematocrit (Bld) [Volume fraction] 34.9 % Low 37-47 [facility] Hemoglobin measurementOrdere d By: Dinora Weiss on 06-27-2024 Hemoglobin (Bld) [Mass/Vol] 11.4 g/dL Low 12.0-15.0 [facility] Immature granulocytes/100 WB C Auto (Bld)Ordered By: Dinora Weiss on 06-27-2024 Immature granulocytes/100 WBC (Bld) 0.400 % 0.0-0.9 [facility] Comment on above: IG% - Immature Granu locytes (promyelocytes, myelocytes and metamyelocytes) > 1% indicates that a LEFT SHIFT is Present. Ketones Test strip Ql (U)Ord ered By: Dinora Weiss on 06-27-2024 Ketones Ql (U) Negative Negative [facility] Lymphocytes Auto (Unsp spec) [#/Vol]Ordered By: Dinora Weiss on 06-27-2024 Lymphocytes (Bld) [#/Vol] 3.46 10*3/uL 0.83-4.5 1 [facility] Lymphocytes/100 WBC Auto (Un sp spec)Ordered By: Dinora Weiss on 06-27-2024 Lymphocytes/100 WBC (Bld) 29.5 % 19-41 [facility] MCV (mean corpuscular volume ) determinationOrdered By: Dinora Weiss on 06-27-2024 MCV (RBC) [Entitic vol] 80.6 fL Low 81-99 [facility] Mean corpuscular hemoglobin (MCH) determinationOrdered By: Dinora Weiss on 06-27-2024 MCH (RBC) [Entitic mass] 26.3 pg Low 27.0-32.0 [facility] Mean corpuscular hemoglobin concentration (MCHC) determinationOrdered By: Dinora Weiss on 06-27-2024 MCHC (RBC) [Mass/Vol] 32.7 g/dL 32-36 [facility] Mean platelet volume determi nationOrdered By: Dinora Weiss on 06-27-2024 Platelet mean volume (Bld) [Entitic vol] 9.1 fL 6.2-12.0 [facility] Microscopic analysis of urin e for red blood cells (RBC)Ordered By: Dinora Weiss on 06-27-2024 Microscopic analysis of urine for red blood cells (RBC) 0 SEEN /hpf 0-5 [facility] Urine RBC 0 SEEN /hpf 0-5 [facility] Monocyte percentageOrdered B y: Dinora Weiss on 06-27-2024 Monocytes/100 WBC (Bld) 6.1 % 0-10 [facility] Mucus LM Ql (Urine sed)Order ed By: Dinora Weiss on 06-27-2024 Mucus Ql (Urine sed) 0 SEEN /hpf [facility] Neutrophil percentageOrdered By: Dinora Weiss on 06-27-2024 Neutrophils/100 WBC (Bld) 63.1 % 47-70 [facility] Nitrite Test strip Ql (U)Ord ered By: Dinora Weiss on 06-27-2024 Nitrite Ql (U) Negative Negative [facility] Nucleated red blood cell per centageOrdered By: Dinora Weiss on 06-27-2024 Nucleated RBC/100 WBC (Bld) [Ratio] 0 % 0-5 [facility] Platelet countOrdered By: Moira Weiss on 06-27-2024 Platelets (Bld) [#/Vol] 334 10*3/uL 150-450 [facility] Potassium (Unsp spec) [Mass/ Vol]Ordered By: Dinora Weiss on 06-27-2024 Potassium [Moles/Vol] 3.4 mmol/L 3.3-5.1 [facility] Potassium measurement (mass/ volume)Ordered By: Dinora Weiss on 06-27-2024 Potassium (Unsp spec) [Mass/Vol] 3.4 mmol/L 3.3-5.1 [facility] Protein Test strip Ql (U)Ord ered By: Dinora Weiss on 06-27-2024 Protein Ql (U) 15 mg/dl High Negative [facility] RBC Auto (Bld) [#/Vol]Ordere d By: Dinora Weiss on 06-27-2024 RBC (Bld) [#/Vol] 4.33 10*6/uL 4.2-5.4 [facility] Serum creatinine measurement (mass/volume)Ordered By: Dinora Weiss on 06-27-2024 Creatinine [Mass/Vol] 0.86 mg/dL 0.70-1.20 [facility] Serum glucose measurement (m ass/volume)Ordered By: Dinora Weiss on 06-27-2024 Glucose [Mass/Vol] 84 mg/dL 70-99 [facility] Serum or plasma calcium lizzeth urement (mass/volume)Ordered By: Dinora Weiss on 06-27-2024 Calcium [Mass/Vol] 9.8 mg/dL 7.6-11.0 [facility] Serum or plasma urea nitroge n measurement (mass/volume)Ordered By: Dinora Weiss on 06-27-2024 Urea nitrogen [Mass/Vol] 16 mg/dL 4-19 [facility] Sodium levelOrdered By: Steve Weiss on 06-27-2024 Sodium [Moles/Vol] 139 mmol/L 133-145 [facility] Squamous epithelial cells de tection in urine sediment by light microscopyOrdered By: Dinora Weiss on 06-27-2024 Epithelial cells.squamous LM Ql (Urine sed) 0-5 SEEN /hpf 5-10 [facility] Urinalysis, Completeon 06-27 EPI,SQUAMOUS 0-5 SEEN Normal 5-10 [facility] Comment on above: Order Comment: CLEAN CATCH Performed By: #### L 400.0001 ####[facility] [address] [place], [address] WBC 5-10 SEEN Normal 0-5 [facility] Comment on above: Order Comment: CLEAN CATCH Performed By: #### L 400.0001 ####[facility] [address] [place], [address] BACTERIA 1+ /hpf Normal None Seen [facility] Comment on above: Order Comment: CLEAN CATCH Performed By: #### L 400.0001 ####[facility] [address] [place], [address] Mucus Ql (Urine sed) 0 SEEN Normal [facility] Comment on above: Order Comment: CLEAN CATCH Performed By: #### L 400.0001 ####[facility] [address] [place], [address] RBC 0 SEEN Normal 0-5 [facility] Comment on above: Order Comment: CLEAN CATCH Performed By: #### L 400.0001 ####[facility] [address] [facility] [address] Urine blood detectionOrdered By: Dinora Weiss on 06-27-2024 Urine Occult Blood Negative Negative [facility] Urine clarityOrdered By: Corey Weiss on 06-27-2024 Clarity (U) Clear Clear [facility] Urine color determinationOrd ered By: Dinora Weiss on 06-27-2024 Color (U) Straw Yellow [facility] Urine glucose detectionOrder ed By: Dinora Weiss on 06-27-2024 Glucose Ql (U) Normal mg/dl Normal [facility] Urine leukocyte esterase det ection by dipstickOrdered By: Dinora Weiss on 06-27-2024 Leukocyte esterase Test strip Ql (U) 100 /ul High Negative [facility] Urine pHOrdered By: Pawan Weiss on 06-27-2024 pH (U) 6.0 [pH] 5.0 - 8.0 [facility] Urine sediment bacteria coun t by microscopy (number/high power field)Ordered By: Dinora Weiss on 06-27-2024 Bacteria LM.HPF (Urine sed) [#/Area] 1 /[HPF] None Seen [facility] Urine specific gravity measu rementOrdered By: Dinora Weiss on 06-27-2024 Specific gravity (U) [Rel density] 1.015 1.002-1.030 [facility] Urine urobilinogen measureme ntOrdered By: Dinora Weiss on 06-27-2024 Urobilinogen Ql (U) Normal mg/dl Normal [facility] Urobilinogen Ql (U)Ordered B y: Dinora Weiss on 06-27-2024 Urine Urobilinogen Normal mg/dl Normal [facility] White blood cell (WBC) count Ordered By: Dinora Weiss on 06-27-2024 WBC (Bld) [#/Vol] 11.7 10*3/uL High 4.4-11.0 [facility] White blood cell countOrdere d By: Dinora Weiss on 06-27-2024 Urine WBC 5-10 SEEN /hpf 0-5 [facility] White blood cell count 5-10 SEEN /hpf 0-5 [facility] Cerv Spine 2 or 3 Viewson Cerv Spine 2 or 3 Views Normal [facility] Lumbar Spine 2 or 3 Viewson 06-21-2024 Lumbar Spine 2 or 3 Views Normal [facility] Thoracic Spine 2 Viewson Thoracic Spine 2 Views Normal [facility] Urgent Care Visit Reporton 0 06-21-2024 Urgent Care Visit Report Normal [facility] MR/BMS.BVSon 06-08-2024 MR/BMS.BVS Normal [facility] Abdominal aortic duplex scan reportOrdered By: Marck Thompson on 05-23-2024 US.doppler Thoracic and abdominal aorta [facility] Work Phone: Chest without Contraston Chest without Contrast Normal [facility] Abd Aortic/IVC Duplex scanon 05-16-2024 Abd Aortic/IVC Duplex scan Normal [facility] Gastroenterology Visit Repor ton 04-25-2024 Gastroenterology Visit Report Normal [facility] [id number] 04-19-2024 [facility]. COMMENT Normal . [facility] Comment on above: Order Comment: SERUM [id number] C1q QUANT Result Comment: Test Ordered: [id number] Complement C1q, QuantitativeComplement C1q, Quantitative 17.4 mg/dL Reference Range: 10.3-20.5Performed at: [facility] [address] [id number] Director: David King MD, Phone: [phone] at: [facility] [address] [id number] Director: Uziel Abrams PhD, Phone: [phone] Performed By: #### L 3410.9998 ####[facility] [address] [place], [place], [id number] [facility]. COMMENT Normal . [facility] [facility] Comment on above: Order Comment: 1-SER UM RT1-SERUM [id number] ANGIOEDEMA Result Comment: Test Ordered: [id number] Hereditary Angioedema (HAE)Complement C4, Serum 31 mg/dL CB Reference Range: 12-38C1 Esterase Inhibitor, Serum 35 mg/dL BN Reference Range: 21-39C1 Est.Inhib.Funct. BN Units of Measure: %mean normal Reference Range: .Test not performed. One specimen was submitted withrequests for multiple tests. The requested testing requiresa separate specimen for each test requested. Abnormal <41 Equivocal 41 - 67 Normal >67CONTACTED JOY YULISSA AT YOUR FACILITY VIA EMAIL ON [id number] at: [facility] [address] [place], [place] [id number] Director: Uziel Abrams PhD, Phone: [phone] at: [facility] [address] [id number] Director: David King MD, Phone: [phone] Performed By: #### L 3100.5700, L3100.5800, L3100.5440, L3400.4300, L3100.6900, L3100.5600, L3410.9998, L3300.1200, L3400.4350 ####[facility] [address] [place], [address] ANCAon 04-14-2024 Atypical pANCA <1:20 Normal Neg:<1:20 [facility] Comment on above: Result Comment: The atypical pANCA pattern has been observed in asignificant percentage of patients with ulcerative colitis,primary sclerosing cholangitis and autoimmune hepatitis. Performed By: #### L 3100.5700, L3100.5800, L3100.5440, L3400.4300, L3100.6900, L3100.5600, L3410.9998, L3300.1200, L3400.4350 ####[facility] [address] [place], [place], [id number] Cytoplasmic Ab <1:20 Normal Neg:<1:20 [facility] Comment on above: Performed By: #### L 3100.5700, L3100.5800, L3100.5440, L3400.4300, L3100.6900, L3100.5600, L3410.9998, L3300.1200, L3400.4350 ####[facility] [address] [place], [place], [id number] Perinuclear Ab. <1:20 Normal Neg:<1:20 [facility] Comment on above: Result Comment: The presence of positive fluorescence exhibiting P-ANCA orC-ANCA patterns alone is not specific for the diagnosis ofWegener's Granulomatosis (WG) or microscopic polyangiitis.Decisions about treatment should not be based solely onANCA IFA results. The International ANCA Group Consensusrecommends follow up testing of positive sera with both UT-3 and MPO-ANCA enzyme immunoassays. As many as 5% serumsamples are positive only by EIA. Ref. AM J Clin Xnoiyv3699;111:507-513. Performed By: #### L 3100.5700, L3100.5800, L3100.5440, L3400.4300, L3100.6900, L3100.5600, L3410.9998, L3300.1200, L3400.4350 ####[facility] [address] [place], [place], [phone] Angiotensin Convert Enzymeon 04-14-2024 ANGIOT-CONV.ENZ 60 U/L Normal 14-82 [facility] Comment on above: Performed By: #### L 3100.5700, L3100.5800, L3100.5440, L3400.4300, L3100.6900, L3100.5600, L3410.9998, L3300.1200, L3400.4350 ####[facility] [address] [place], [address] C1 EST Inhibitor, Functional on 04-14-2024 C1 EST INH FUNC >110 Normal . [facility] Comment on above: Result Comment: Resu lt Units: %mean normal Abnormal <41 Equivocal 41 - 67 Normal >67 Performed By: #### L 3100.5700, L3100.5800, L3100.5440, L3400.4300, L3100.6900, L3100.5600, L3410.9998, L3300.1200, L3400.4350 ####[facility] [address] [place], [address] C1 Esterase Inhibitor, Quant on 04-14-2024 C1 EST INHIBIT 37 mg/dL Normal 21-39 [facility] Comment on above: Order Comment: [id number] Result Comment: Perf ormed at: CB - [facility] [address] [place], [place] [id number] Director: Uziel bArams PhD, Phone: [phone] at: - [facility] [address] [place], [place] [id number] Director: David King MD, Phone: [phone] Performed By: #### L 3100.5700, L3100.5800, L3100.5440, L3400.4300, L3100.6900, L3100.5600, L3410.9998, L3300.1200, L3400.4350 ####[facility] [address] [place], [place], [phone] Complement C3on 04-14-2024 COMP C3 197 mg/dL High 82-167 [facility] Comment on above: Performed By: #### L 3100.5700, L3100.5800, L3100.5440, L3400.4300, L3100.6900, L3100.5600, L3410.9998, L3300.1200, L3400.4350 ####[facility] [address] [place], [place], [address] Complement C4on 04-14-2024 COMPLEMENT, C4 32 mg/dL Normal 12-38 [facility] Comment on above: Performed By: #### L 3100.5700, L3100.5800, L3100.5440, L3400.4300, L3100.6900, L3100.5600, L3410.9998, L3300.1200, L3400.4350 ####[facility] [address] [place], [place], [address] Complement CH50on 04-14-2024 COMPLEMENT,CH50 > 60 Normal >41 [facility] Comment on above: Result Comment: Age Male Female 1 - 30 days Not Estab. Not Estab. 31 days - 6 months >32 >20 7 months - 17 years >39 >39 >17 years >41 >41 NOTE: The adult (>17 years) reference interval range is used to flag abnormals on this report. If the patient is 17 years old or younger, use the table above to determine out of range values. Performed By: #### L 3100.5700, L3100.5800, L3100.5440, L3400.4300, L3100.6900, L3100.5600, L3410.9998, L3300.1200, L3400.4350 ####[facility] [address] [place], [place], [phone] PRIMO Comprehensive Panelon ANTI-DNA (DS)AB <1 Normal 0-9 [facility] Comment on above: Result Comment: Nega tive <5 Equivocal 5 - 9 Positive >9 Performed By: #### L 3100.5700, L3100.5800, L3100.5440, L3400.4300, L3100.6900, L3100.5600, L3410.9998, L3300.1200, L3400.4350 ####[facility] [address] [place], [address] ANTISCLERODERM <0.2 Normal 0.0-0.9 [facility] Comment on above: Performed By: #### L 3100.5700, L3100.5800, L3100.5440, L3400.4300, L3100.6900, L3100.5600, L3410.9998, L3300.1200, L3400.4350 ####[facility] [address] [place], [place], [address] Angiotensin converting enzym e [Catalytic activity/Vol]Ordered By: Brian Zuniga on 04-11-2024 Serum or plasma angiotensin converting enzyme measurement (enzymatic activity/volume) 60 U/L 14-82 [facility] Atypical perinuclear antineu trophil cytoplasmic antibodies measurementOrdered By: Brian Zuniga on 04-11-2024 Atypical p-ANCA <1:20 titer Neg:<1:20 [facility] Comment on above: The atypical pANCA p attern has been observed in asignificant percentage of patients with ulcerative colitis,primary sclerosing cholangitis and autoimmune hepatitis. Centromere B antibody assayO rdered By: Brian Zuniga on 04-11-2024 Centromere B Antibody <0.2 AI 0.0-0.9 [facility] Comment on above: Previous reported re sult: TNP AIEdited by: AJ on 04/13/24:1307 AMENDED REPORT 04/13/24 130 ANTI-CENT B previously reported as: Test not performed Chromatin antibody assayOrde red By: Brian Zuniga on 04-11-2024 Antichromatin Antibodies <0.2 AI 0.0-0.9 [facility] Comment on above: Previous reported re sult: TNP AIEdited by: AJ on 04/13/24:1307 AMENDED REPORT 04/13/24 130 ANTICHROMATIN previously reported as: Test not performed Complement C1 esterase inhib itor measurementOrdered By: Brian Zuniga on 04-11-2024 C1 Esterase Inhibitor 37 mg/dL 21- [facility] Comment on above: Performed at: [facility] [address] [id number] Director: Uziel Abrams PhD, Phone: [phone] at: [facility] [id number] Director: David King MD, Phone: [phone] Complement C1 esterase inhibitor measurement 37 mg/dL 21-39 [facility] Complement C1 esterase inhib itor.functional QlOrdered By: Brian Zuniga on 04-11-2024 Functional C1 Esterase Inhibitor >110 . [facility] Comment on above: Result Units: %mean normal Abnormal <41 Equivocal 41 - 67 Normal >67 Serum or plasma functional complement C1 esterase inhibitor detection >110 . [facility] Complement C3 assayOrdered B y: Brian Zuniga on 04-11-2024 Complement C3 197 mg/dL High 82-167 [facility] Complement C3 assay 197 mg/dL High 82-167 [facility] Complement C4 [Mass/Vol]Orde red By: Brian Zuniga on 04-11-2024 Complement C4 32 mg/dL 12-38 [facility] Serum or plasma complement C4 measurement (mass/volume) 32 mg/dL 12-38 [facility] DNA double strand Ab Qn (S)O rdered By: Brian Zuniga on 04-11-2024 Anti-Double Strand DNA Antibody <1 IU/mL 0-9 [facility] Comment on above: Negative <5 Equivoca l 5 - 9 Positive >9 Serum DNA double strand antibody assay (units/volume) <1 IU/mL 0-9 [facility] Elaine-1 antibody assayOrdered B y: Brianjosie Zuniga on 04-11-2024 ELAINE-1 Antibody <0.2 AI 0.0-0.9 [facility] Comment on above: Previous reported re sult: TNP AIEdited by: AJ on 04/13/24:1307 AMENDED REPORT 04/13/241306 ANTI-ELAINE previously reported as: Test not performed Neutrophil cytoplasmic Ab.cl assic Qn (S)Ordered By: Brian Zuniga on 04-11-2024 Cytoplasmic ANCA (c-ANCA) Antibody <1:20 titer Neg:<1:20 [facility] Neutrophil cytoplasmic Ab.pe rinuclear IF (S) [Titer]Ordered By: Brian Zuniga on 04-11-2024 Perinuclear ANCA (p-ANCA) Antibody <1:20 titer Neg:<1:20 [facility] Comment on above: The presence of posi tive fluorescence exhibiting P-ANCA orC-ANCA patterns alone is not specific for the diagnosis ofWegener's Granulomatosis (WG) or microscopic polyangiitis.Decisions about treatment should not be based solely onANCA IFA results. The International ANCA Group Consensusrecommends follow up testing of positive sera with both UT-3 and MPO-ANCA enzyme immunoassays. As many as 5% serumsamples are positive only by EIA. Ref. AM J Clin Idhaqo3697;111:507-513. DRAWBENCH OPERATOR HELPER abOrdered By: Brian Mckeon iend on 04-11-2024 DRAWBENCH OPERATOR HELPER Antibody 0.2 AI 0.0-0.9 [facility] Comment on above: Previous reported re sult: TNP AIEdited by: AJ on 04/13/24:1307 AMENDED REPORT 04/13/24 130 DRAWBENCH OPERATOR HELPER Ab previously reported as: Test not performed DRAWBENCH OPERATOR HELPER ab 0.2 AI 0.0-0.9 [facility] SCL-70 extractable nuclear A b Qn (S)Ordered By: Brian Zuniga on 04-11-2024 Scl-70 (Scleroderma) Antibody <0.2 AI 0.0-0.9 [facility] SS-A IgG antibody assayOrder ed By: Brian Zuniga on 04-11-2024 SS-A/Ro IgG Antibody > 8.0 AI High 0.0-0.9 [facility] Comment on above: Previous reported re sult: TNP AIEdited by: AJ on 04/13/24:1307 AMENDED REPORT 04/13/24 1307 Anti-SS-A previously reported as: Test not performed SS-A IgG antibody assay > 8.0 AI High 0.0-0.9 [facility] SS-B IgG antibody assayOrder ed By: Brian Zuniga on 04-11-2024 SS-B/La IgG Antibody < 0.2 AI 0.0-0.9 [facility] Comment on above: Previous reported re sult: TNP AIEdited by: AJ on 04/13/24:1307 AMENDED REPORT 04/13/24 1307 Anti-SS-B previously reported as: Test not performed SS-B IgG antibody assay < 0.2 AI 0.0-0.9 [facility] Serum DNA double strand anti body assay (units/volume)Ordered By: Brian Zuniga on 04-11-2024 DNA double strand Ab Qn (S) [IU]/mL 0-9 [facility] Comment on above: Negative <5 Equivoca l 5 - 9 Positive >9 Serum Scl-70 antibody assay (units/volume)Ordered By: Brian Zuniga on 04-11-2024 SCL-70 extractable nuclear Ab Qn (S) <0.2 AI 0.0-0.9 [facility] Serum classic neutrophil cyt oplasmic antibody assay (units/volume)Ordered By: Brian Zuniga on 04-11-2024 Neutrophil cytoplasmic Ab.classic Qn (S) <1:20 titer Neg:<1:20 [facility] Serum classic neutrophil cytoplasmic antibody assay (units/volume) <1:20 titer Neg:<1:20 [facility] Serum or plasma angiotensin converting enzyme measurement (enzymatic activity/volume)Ordered By: Brian Zuniga on 04-11-2024 Angiotensin converting enzyme [Catalytic activity/Vol] 60 U/L 14-82 [facility] Serum or plasma complement C 4 measurement (mass/volume)Ordered By: Brian Zuniga on 04-11-2024 Complement C4 [Mass/Vol] 32 mg/dL 12-38 [facility] Serum or plasma functional c omplement C1 esterase inhibitor detectionOrdered By: Brian Zuniga on 04-11-2024 Complement C1 esterase inhibitor.functional Ql >110 . [facility] Comment on above: Result Units: %mean normal Abnormal <41 Equivocal 41 - 67 Normal >67 Serum perinuclear neutrophil cytoplasmic antibody titer by immunofluorescenceOrdered By: Brian Zuniga on 04-11-2024 Neutrophil cytoplasmic Ab.perinuclear IF (S) [Titer] <1:20 titer Neg:<1:20 [facility] Comment on above: The presence of posi tive fluorescence exhibiting P-ANCA orC-ANCA patterns alone is not specific for the diagnosis ofWegener's Granulomatosis (WG) or microscopic polyangiitis.Decisions about treatment should not be based solely onANCA IFA results. The International ANCA Group Consensusrecommends follow up testing of positive sera with both UT-3 and MPO-ANCA enzyme immunoassays. As many as 5% serumsamples are positive only by EIA. Ref. AM J Clin Ecfxfc3467;111:507-513. Palmer antibody assayOrdered By: Brian Zuniga on 04-11-2024 SM Antibody <0.2 AI 0.0-0.9 [facility] Comment on above: Previous reported re sult: TNP AIEdited by: AJ on 04/13/24:1307 AMENDED REPORT 04/13/24 1307 PALMER Ab previously reported as: Test not performed Total hemolytic (CH50) compl ement assayOrdered By: Brian Zuniga on 04-11-2024 Total Complement (CH50) > 60 U/mL >41 [facility] Comment on above: Age Male Female 1 - 30 days Not Estab. Not Estab. 31 days - 6 months >32 >20 7 months - 17 years >39 >39 >17 years >41 >41 NOTE: The adult (>17 years) reference interval range is used to flag abnormals on this report. If the patient is 17 years old or younger, use the table above to determine out of range values. Total hemolytic (CH50) complement assay > 60 U/mL >41 [facility] Gastroenterology Visit Repor ton 04-07-2024 Gastroenterology Visit Report Normal [facility] ANCAon 03-21-2024 Atypical pANCA <1:20 Normal Neg:<1:20 [facility] Comment on above: Order Comment: RICCO HANSEN ORDERED IGE IGE TO SHRIMP AND SEASAME SEEDY Result Comment: The atypical pANCA pattern has been observed in asignificant percentage of patients with ulcerative colitis,primary sclerosing cholangitis and autoimmune hepatitis.Performed at: [facility] [address] [id number] Director: Uziel Abrams PhD, Phone: [phone] at: [facility] [address] [id number] Director: David King MD, Phone: [phone] Performed By: #### L 5500.0410, L3410.2400, L3300.1200, L506.0250, L700.6800, L2100.0000, L503.0105, L506.1000, L500.4050, L503.6075, L3200.1100, L501.6710, L101.9900, L100.0100 ####[facility] [address] [place], [address] Cytoplasmic Ab <1:20 Normal Neg:<1:20 [facility] Comment on above: Order Comment: RICCO HANSEN ORDERED IGE IGE TO SHRIMP AND SEASAME SEEDY Performed By: #### L 5500.0410, L3410.2400, L3300.1200, L506.0250, L700.6800, L2100.0000, L503.0105, L506.1000, L500.4050, L503.6075, L3200.1100, L501.6710, L101.9900, L100.0100 ####[facility] [address] [place], [place], [phone] Perinuclear Ab. <1:20 Normal Neg:<1:20 [facility] Comment on above: Order Comment: RICCO DESAI ORDERED IGE IGE TO SHRIMP AND SEASAME SEEDY Result Comment: The presence of positive fluorescence exhibiting P-ANCA orC-ANCA patterns alone is not specific for the diagnosis ofWegener's Granulomatosis (WG) or microscopic polyangiitis.Decisions about treatment should not be based solely onANCA IFA results. The International ANCA Group Consensusrecommends follow up testing of positive sera with both UT-3 and MPO-ANCA enzyme immunoassays. As many as 5% serumsamples are positive only by EIA. Ref. AM J Clin Wemgsi9939;111:507-513. Performed By: #### L 5500.0410, L3410.2400, L3300.1200, L506.0250, L700.6800, L2100.0000, L503.0105, L506.1000, L500.4050, L503.6075, L3200.1100, L501.6710, L101.9900, L100.0100 ####[facility] [address] [place], [place], [address] Allergen, Food Profileon CLAM <0.10 Normal Class 0 [facility] Comment on above: Order Comment: RICCO HANSEN ORDERED IGE IGE TO SHRIMP AND SEASAME SEED Performed By: #### L 5500.0410, L3410.2400, L3300.1200, L506.0250, L700.6800, L2100.0000, L503.0105, L506.1000, L500.4050, L503.6075, L3200.1100, L501.6710, L101.9900, L100.0100 ####[facility] [address] [place], [place], [phone] CODFISH <0.10 Normal Class 0 [facility] Comment on above: Order Comment: RICCO HANSEN ORDERED IGE IGE TO SHRIMP AND SEASAME SEED Performed By: #### L 5500.0410, L3410.2400, L3300.1200, L506.0250, L700.6800, L2100.0000, L503.0105, L506.1000, L500.4050, L503.6075, L3200.1100, L501.6710, L101.9900, L100.0100 ####[facility] [address] [place], [address] COMMENT Comment Normal . [facility] Comment on above: Order Comment: RICCO HANSEN ORDERED IGE IGE TO SHRIMP AND SEASAME SEED Result Comment: Jun saleh of Specific IgE Class Description of Class ----- < 0.10 0 Negative 0.10 - 0.31 0/I Equivocal/Low 0.32 - 0.55 I Low 0.56 - 1.40 II Moderate 1.41 - 3.90 III High 3.91 - 19.00 IV Very High 19.01 - 100.00 V Very High >100.00 Very High Performed By: #### L 5500.0410, L3410.2400, L3300.1200, L506.0250, L700.6800, L2100.0000, L503.0105, L506.1000, L500.4050, L503.6075, L3200.1100, L501.6710, L101.9900, L100.0100 ####[facility] [address] [place], [address] CORN <0.10 Normal Class 0 [facility] Comment on above: Order Comment: RICCO HANSEN ORDERED IGE IGE TO SHRIMP AND SEASAME SEED Performed By: #### L 5500.0410, L3410.2400, L3300.1200, L506.0250, L700.6800, L2100.0000, L503.0105, L506.1000, L500.4050, L503.6075, L3200.1100, L501.6710, L101.9900, L100.0100 ####[facility] [address] [place], [place], [phone] EGG, WHITE <0.10 Normal Class 0 [facility] Comment on above: Order Comment: RICCO HANSEN ORDERED IGE IGE TO SHRIMP AND SEASAME SEED Performed By: #### L 5500.0410, L3410.2400, L3300.1200, L506.0250, L700.6800, L2100.0000, L503.0105, L506.1000, L500.4050, L503.6075, L3200.1100, L501.6710, L101.9900, L100.0100 ####[facility] [address] [place], [place], [phone] MILK (COW) <0.10 Normal Class 0 [facility] Comment on above: Order Comment: RICCO HANSEN ORDERED IGE IGE TO SHRIMP AND SEASAME SEED Performed By: #### L 5500.0410, L3410.2400, L3300.1200, L506.0250, L700.6800, L2100.0000, L503.0105, L506.1000, L500.4050, L503.6075, L3200.1100, L501.6710, L101.9900, L100.0100 ####[facility] [address] [place], [place], [phone] PEANUT <0.10 Normal Class 0 [facility] Comment on above: Order Comment: RICCO HANSEN ORDERED IGE IGE TO SHRIMP AND SEASAME SEED Performed By: #### L 5500.0410, L3410.2400, L3300.1200, L506.0250, L700.6800, L2100.0000, L503.0105, L506.1000, L500.4050, L503.6075, L3200.1100, L501.6710, L101.9900, L100.0100 ####[facility] [address] [place], [address] SCALLOP <0.10 Normal Class 0 [facility] Comment on above: Order Comment: [facility] IGE IGE TO SHRIMP AND SEASAME SEED Performed By: #### L 5500.0410, L3410.2400, L3300.1200, L506.0250, L700.6800, L2100.0000, L503.0105, L506.1000, L500.4050, L503.6075, L3200.1100, L501.6710, L101.9900, L100.0100 ####[facility] [address] [place], [address] SESAME SEED <0.10 Normal Class 0 [facility] Comment on above: Order Comment: [facility] IGE IGE TO SHRIMP AND SEASAME SEED Result Comment: Perf ormed at: BN - [facility] [id number] Director: David King MD, Phone: [phone] Performed By: #### L 5500.0410, L3410.2400, L3300.1200, L506.0250, L700.6800, L2100.0000, L503.0105, L506.1000, L500.4050, L503.6075, L3200.1100, L501.6710, L101.9900, L100.0100 ####[facility] [address] [place], [address] SHRIMP <0.10 Normal Class 0 [facility] Comment on above: Order Comment: RICCO HANSEN ORDERED IGE IGE TO SHRIMP AND SEASAME SEED Performed By: #### L 5500.0410, L3410.2400, L3300.1200, L506.0250, L700.6800, L2100.0000, L503.0105, L506.1000, L500.4050, L503.6075, L3200.1100, L501.6710, L101.9900, L100.0100 ####[facility] [address] [place], [place], [address] SOYBEAN <0.10 Normal Class 0 [facility] Comment on above: Order Comment: RICCO HANSEN ORDERED IGE IGE TO SHRIMP AND SEASAME SEED Performed By: #### L 5500.0410, L3410.2400, L3300.1200, L506.0250, L700.6800, L2100.0000, L503.0105, L506.1000, L500.4050, L503.6075, L3200.1100, L501.6710, L101.9900, L100.0100 ####[facility] [address] [place], [place], [phone] WALNUT,(Food) <0.10 Normal Class 0 [facility] Comment on above: Order Comment: RICCO HANSEN ORDERED IGE IGE TO SHRIMP AND SEASAME SEED Performed By: #### L 5500.0410, L3410.2400, L3300.1200, L506.0250, L700.6800, L2100.0000, L503.0105, L506.1000, L500.4050, L503.6075, L3200.1100, L501.6710, L101.9900, L100.0100 ####[facility] [address] [place], [place], [phone] WHEAT <0.10 Normal Class 0 [facility] Comment on above: Order Comment: RICCO HANSEN ORDERED IGE IGE TO SHRIMP AND SEASAME SEED Performed By: #### L 5500.0410, L3410.2400, L3300.1200, L506.0250, L700.6800, L2100.0000, L503.0105, L506.1000, L500.4050, L503.6075, L3200.1100, L501.6710, L101.9900, L100.0100 ####[facility] [address] [place], [place], [address] C1 EST Inhibitor, Functional on 03-21-2024 C1 EST INH FUNC >110 Normal . [facility] Comment on above: Result Comment: Resu lt Units: %mean normal Abnormal <41 Equivocal 41 - 67 Normal >67Performed at: [facility] [id number] [place], [place] [id number] Director: Uziel Abrams PhD, Phone: [phone] at: [facility] [id number] Director: David King MD, Phone: [phone] Performed By: #### L 3400.5105, L3100.5800, L3400.4350 ####[facility] [address] [place], [address] Celiac Disease Profileon ENDOMYSIAL IGA Negative Normal Negative [facility] Comment on above: Order Comment: RICCO HANSEN ORDERED IGE IGE TO SHRIMP AND SEASAME SEEDY Performed By: #### L 5500.0410, L3410.2400, L3300.1200, L506.0250, L700.6800, L2100.0000, L503.0105, L506.1000, L500.4050, L503.6075, L3200.1100, L501.6710, L101.9900, L100.0100 ####[facility] [address] [place], [place], [address] tTG IGA <2 Normal 0-3 [facility] Comment on above: Order Comment: RICCO HANSEN ORDERED IGE IGE TO SHRIMP AND SEASAME SEEDY Result Comment: Nega tive 0 - 3 Weak Positive 4 - 10 Positive >10 Tissue Transglutaminase (tTG) has been identified as the endomysial antigen. Studies have demonstr- ated that endomysial IgA antibodies have over 99% specificity for gluten sensitive enteropathy. Performed By: #### L 5500.0410, L3410.2400, L3300.1200, L506.0250, L700.6800, L2100.0000, L503.0105, L506.1000, L500.4050, L503.6075, L3200.1100, L501.6710, L101.9900, L100.0100 ####[facility] [address] [place], [address] Complement C4on 03-21-2024 COMPLEMENT, C4 32 mg/dL Normal 12-38 [facility] Comment on above: Performed By: #### L 3400.5105, L3100.5800, L3400.4350 ####[facility] [address] [place], [address] Immunoglobulins G/A/M/Aldo IMMUNOGLOB A QN 216 mg/dL Normal 87-352 [facility] Comment on above: Order Comment: [facility] ORDERED IGE IGE TO SHRIMP AND SEASAME SEEDY Performed By: #### L 5500.0410, L3410.2400, L3300.1200, L506.0250, L700.6800, L2100.0000, L503.0105, L506.1000, L500.4050, L503.6075, L3200.1100, L501.6710, L101.9900, L100.0100 ####[facility] [address] [place], [address] IMMUNOGLOB E QN 24 IU/mL Normal 6-495 [facility] Comment on above: Order Comment: [facility] ORDERED IGE IGE TO SHRIMP AND SEASAME SEEDY Performed By: #### L 5500.0410, L3410.2400, L3300.1200, L506.0250, L700.6800, L2100.0000, L503.0105, L506.1000, L500.4050, L503.6075, L3200.1100, L501.6710, L101.9900, L100.0100 ####[facility] [address] [place], [address] IMMUNOGLOB G QN 1022 mg/dL Normal 586-1602 [facility] Comment on above: Order Comment: [facility] ORDERED IGE IGE TO SHRIMP AND SEASAME SEEDY Performed By: #### L 5500.0410, L3410.2400, L3300.1200, L506.0250, L700.6800, L2100.0000, L503.0105, L506.1000, L500.4050, L503.6075, L3200.1100, L501.6710, L101.9900, L100.0100 ####[facility] [address] [place], [address] IMMUNOGLOB M QN 41 mg/dL Normal 26-217 [facility] Comment on above: Order Comment: [facility] IGE IGE TO SHRIMP AND SEASAME SEEDY Performed By: #### L 5500.0410, L3410.2400, L3300.1200, L506.0250, L700.6800, L2100.0000, L503.0105, L506.1000, L500.4050, L503.6075, L3200.1100, L501.6710, L101.9900, L100.0100 ####[facility] [address] [place], [address] L2100.0000on 03-21-2024 ACCA 100 units Abnormal 0-90 [facility] Comment on above: Order Comment: [facility] ORDERED IGE IGE TO SHRIMP AND SEASAME SEEDY Result Comment: Nega tive: <80 Equivocal: 80-90 Positive: >90 Performed By: #### L 5500.0410, L3410.2400, L3300.1200, L506.0250, L700.6800, L2100.0000, L503.0105, L506.1000, L500.4050, L503.6075, L3200.1100, L501.6710, L101.9900, L100.0100 ####[facility] [address] [place], [address] ALCA 0 units Normal 0-60 [facility] Comment on above: Order Comment: [facility] ORDERED IGE IGE TO SHRIMP AND SEASAME SEEDY Result Comment: Nega tive:<55 Equivocal: 55-60 Positive: >60 Performed By: #### L 5500.0410, L3410.2400, L3300.1200, L506.0250, L700.6800, L2100.0000, L503.0105, L506.1000, L500.4050, L503.6075, L3200.1100, L501.6710, L101.9900, L100.0100 ####[facility] [address] [place], [address] AMCA 20 units Normal 0-100 [facility] Comment on above: Order Comment: [facility] ORDERED IGE IGE TO SHRIMP AND SEASAME SEEDY Result Comment: Nega tive: <90 Equivocal: 90-100 Positive: >100 This test was developed and its performance characteristics determined by [facility]. It has not been cleared or approved by the Food and Drug Administration. The FDA has determined that such clearance or approval is not necessary. Performed By: #### L 5500.0410, L3410.2400, L3300.1200, L506.0250, L700.6800, L2100.0000, L503.0105, L506.1000, L500.4050, L503.6075, L3200.1100, L501.6710, L101.9900, L100.0100 ####[facility] [address] [place], [address] Atypical pANCA Negative Normal Negative [facility] Comment on above: Order Comment: [facility] ORDERED IGE IGE TO SHRIMP AND SEASAME SEEDY Performed By: #### L 5500.0410, L3410.2400, L3300.1200, L506.0250, L700.6800, L2100.0000, L503.0105, L506.1000, L500.4050, L503.6075, L3200.1100, L501.6710, L101.9900, L100.0100 ####[facility] [address] [place], [place], [phone] COMMENT Comment Abnormal . [facility] Comment on above: Order Comment: [facility] ORDERED IGE IGE TO SHRIMP AND SEASAME SEEDY Result Comment: Sugg estive of Crohn's Disease. Pattern is not conclusivefor disease behavior risk stratification. Performed By: #### L 5500.0410, L3410.2400, L3300.1200, L506.0250, L700.6800, L2100.0000, L503.0105, L506.1000, L500.4050, L503.6075, L3200.1100, L501.6710, L101.9900, L100.0100 ####[facility] [address] [place], [place], [phone] Yasmine 34 units Normal 0-50 [facility] Comment on above: Order Comment: [facility] ORDERED IGE IGE TO SHRIMP AND SEASAME SEEDY Result Comment: Nega tive: <45 Equivocal: 45-50 Positive: >50 Performed By: #### L 5500.0410, L3410.2400, L3300.1200, L506.0250, L700.6800, L2100.0000, L503.0105, L506.1000, L500.4050, L503.6075, L3200.1100, L501.6710, L101.9900, L100.0100 ####[facility] [address] [place], [place], [phone] Tryptaseon 03-21-2024 TRYPTASE 4.0 ug/L Normal 2.2-13.2 [facility] Comment on above: Performed By: #### L 3400.5105, L3100.5800, L3400.4350 ####[facility] [address] [place], [address] 23-EK-Dvnueer DOrdered By: Ina Shepard on 03-17-2024 Vitamin D 25-Hydroxy 26.1 ng/mL [facility] Comment on above: Vitamin D 25(OH) Sta tus Range Deficiency <20 ng/mL (50nmol/L) Insufficiency 20 - 30 ng/mL (50 - 75 nmol/L) Sufficiency 30 - 100 ng/mL (75 - 250 nmol/L) Toxicity >100 ng/mL (>250 nmol/L) 85-ZB-Exfxrrm D 26.1 ng/mL [facility] ALP [Catalytic activity/Vol] Ordered By: Joy Shepard on 03-17-2024 Serum or plasma alkaline phosphatase measurement 113 U/L 45-117 [facility] ALT [Catalytic activity/Vol] Ordered By: Joy Shepard on 03-17-2024 Serum or plasma alanine aminotransferase (ALT) measurement 19 U/L 13-56 [facility] ASCA IgG abOrdered By: Delisa Shepard on 03-17-2024 Saccharomyces cerevisiae (Yasmine)IgG 34 units 0-50 [facility] Comment on above: Negative: <45 Equivo merlyn: 45-50 Positive: >50 ASCA IgG ab 34 units 0-50 [facility] Absolute neutrophil countOrd ered By: Joy Shepard on 03-17-2024 Neutrophils (Bld) [#/Vol] 4.8 10*3/uL 2.0-7.7 [facility] Absolute neutrophil count 4.8 X10^3/uL 2.0-7.7 [facility] Albumin [Mass/Vol]Ordered By : Joy Shepard on 03-17-2024 Serum or plasma albumin measurement (mass/volume) 3.1 g/dL Low 3.2-5.0 [facility] Albumin to globulin ratioOrd ered By: Joy Shepard on 03-17-2024 Albumin/Globulin [Mass ratio] 0.8 {ratio} Low 0.9-2.4 [facility] Albumin to globulin ratio 0.8 RATIO Low 0.9-2.4 [facility] Atypical perinuclear antineu trophil cytoplasmic antibodies measurementOrdered By: Joy Shepard on 03-17-2024 Atypical p-ANCA <1:20 titer Neg:<1:20 [facility] Comment on above: *Additional results available. Contact laboratory/see report*The atypical pANCA pattern has been observed in asignificant percentage of patients with ulcerative colitis,primary sclerosing cholangitis and autoimmune hepatitis.Performed at: - [facility] [id number] [place], [place] [id number] Director: Uziel Abrams PhD, Phone: [phone] at: - [facility] [id number] Director: David King MD, Phone: [phone] Basophil percentageOrdered B y: Joy Shepard on 03-17-2024 Basophils/100 WBC (Bld) 0.6 % 0-1 [facility] Basophil percentage 0.6 % 0-1 [facility] Beta HCG ( test) Ql Ordered By: Joy Shepard on 03-17-2024 Serum Test, Qualitative Negative [facility] Bilirubin, totalOrdered By: Joy Shepard on 03-17-2024 Bilirubin [Mass/Vol] 0.40 mg/dL 0.20-1.00 [facility] Comment on above: For patients on eltr ombopag therapy, use of Dimension [place] TBIL is not recommended. Bilirubin, total 0.40 mg/dL 0.20-1.00 [facility] [place] IgE Qn (S)Order ed By: Joy Shepard on 03-17-2024 [place] Allergen <0.10 kU/L Class 0 [facility] Blood urea nitrogen (BUN)/cr eatinine ratioOrdered By: Joy Shepard on 03-17-2024 Urea nitrogen/Creatinine [Mass ratio] 19.2 mg/mg - [facility] Blood urea nitrogen (BUN)/creatinine ratio 19.2 RATIO 12-19 [facility] C-reactive protein measureme nt by high sensitivity methodOrdered By: Joy Shepard on 03-17-2024 C-Reactive Protein Extended Range 9.42 mg/L High 0.0-3.0 [facility] Comment on above: C-Reactive Protein ( CRP) provides useful information for thediagnosis, therapy and monitoring of inflammatory processesand associated diseases. For the evaluation of Relative Riskfor Cardiovascular Disease, a High Sensitivity CRP (HSCRP)should be ordered. C-reactive protein measurement by high sensitivity method 9.42 mg/L High 0.0-3.0 [facility] CBC W/Diff, Automatedon 03-02 Absolute Lymph 1.48 X10 3/uL Normal 0.83-4.51 [facility] Comment on above: Order Comment: [facility] ORDERED IGE IGE TO SHRIMP AND SEASAME SEED Performed By: #### L 5500.0410, L3410.2400, L3300.1200, L506.0250, L700.6800, L2100.0000, L503.0105, L506.1000, L500.4050, L503.6075, L3200.1100, L501.6710, L101.9900, L100.0100 ####[facility] [address] [place], [place], [phone] Absolute Neut 4.8 X10 3/uL Normal 2.0-7.7 [facility] Comment on above: Order Comment: [facility] ORDERED IGE IGE TO SHRIMP AND SEASAME SEED Performed By: #### L 5500.0410, L3410.2400, L3300.1200, L506.0250, L700.6800, L2100.0000, L503.0105, L506.1000, L500.4050, L503.6075, L3200.1100, L501.6710, L101.9900, L100.0100 ####[facility] [address] [place], [place], [phone] Basophils/100 WBC (Bld) 0.6 % Normal 0-1 [facility] Comment on above: Order Comment: [facility] ORDERED IGE IGE TO SHRIMP AND SEASAME SEED Performed By: #### L 5500.0410, L3410.2400, L3300.1200, L506.0250, L700.6800, L2100.0000, L503.0105, L506.1000, L500.4050, L503.6075, L3200.1100, L501.6710, L101.9900, L100.0100 ####[facility] [address] [place], [address] Eosinophils/100 WBC (Bld) 2.7 % Normal 0-5 [facility] Comment on above: Order Comment: [facility] ORDERED IGE IGE TO SHRIMP AND SEASAME SEED Performed By: #### L 5500.0410, L3410.2400, L3300.1200, L506.0250, L700.6800, L2100.0000, L503.0105, L506.1000, L500.4050, L503.6075, L3200.1100, L501.6710, L101.9900, L100.0100 ####[facility] [address] [place], [place], [phone]) Erythrocyte distribution width (RBC) [Ratio] 14.5 % Normal 11.6-14.6 [facility] Comment on above: Order Comment: [facility] Div[facility] ORDERED IGE IGE TO SHRIMP AND SEASAME SEED Performed By: #### L 5500.0410, L3410.2400, L3300.1200, L506.0250, L700.6800, L2100.0000, L503.0105, L506.1000, L500.4050, L503.6075, L3200.1100, L501.6710, L101.9900, L100.0100 ####[facility] [address] [place], [place], [phone]) Hematocrit (Bld) [Volume fraction] 32.6 % Low 37-47 [facility] Comment on above: Order Comment: [facility] ORDERED IGE IGE TO SHRIMP AND SEASAME SEED Performed By: #### L 5500.0410, L3410.2400, L3300.1200, L506.0250, L700.6800, L2100.0000, L503.0105, L506.1000, L500.4050, L503.6075, L3200.1100, L501.6710, L101.9900, L100.0100 ####[facility] [address] [place], [address] Hemoglobin (Bld) [Mass/Vol] 10.7 g/dL Low 12.0-15.0 [facility] Comment on above: Order Comment: [facility] ORDERED IGE IGE TO SHRIMP AND SEASAME SEED Performed By: #### L 5500.0410, L3410.2400, L3300.1200, L506.0250, L700.6800, L2100.0000, L503.0105, L506.1000, L500.4050, L503.6075, L3200.1100, L501.6710, L101.9900, L100.0100 ####[facility] [address] [place], [address] IG% 0.400 Normal 0.0-0.9 [facility] Comment on above: Order Comment: [facility] ORDERED IGE IGE TO SHRIMP AND SEASAME SEED Result Comment: IG% - Immature Granulocytes (promyelocytes, myelocytes andmetamyelocytes) > 1% indicates that a LEFT SHIFT is Present. Performed By: #### L 5500.0410, L3410.2400, L3300.1200, L506.0250, L700.6800, L2100.0000, L503.0105, L506.1000, L500.4050, L503.6075, L3200.1100, L501.6710, L101.9900, L100.0100 ####[facility] [address] [place], [address] Lymphocytes/100 WBC (Bld) 21.2 % Normal 19-41 [facility] Comment on above: Order Comment: [facility] H[facility] ORDERED IGE IGE TO SHRIMP AND SEASAME SEED Performed By: #### L 5500.0410, L3410.2400, L3300.1200, L506.0250, L700.6800, L2100.0000, L503.0105, L506.1000, L500.4050, L503.6075, L3200.1100, L501.6710, L101.9900, L100.0100 ####[facility] [address] [place], [address] MCH (RBC) [Entitic mass] 27.7 pg Normal 27.0-32.0 [facility] Comment on above: Order Comment: [facility] ORDERED IGE IGE TO SHRIMP AND SEASAME SEED Performed By: #### L 5500.0410, L3410.2400, L3300.1200, L506.0250, L700.6800, L2100.0000, L503.0105, L506.1000, L500.4050, L503.6075, L3200.1100, L501.6710, L101.9900, L100.0100 ####[facility] [address] [place], [address] MCHC (RBC) [Mass/Vol] 32.8 g/dL Normal 32-36 [facility] Comment on above: Order Comment: [facility] ORDERED IGE IGE TO SHRIMP AND SEASAME SEED Performed By: #### L 5500.0410, L3410.2400, L3300.1200, L506.0250, L700.6800, L2100.0000, L503.0105, L506.1000, L500.4050, L503.6075, L3200.1100, L501.6710, L101.9900, L100.0100 ####[facility] [address] [place], [address] MCV (RBC) [Entitic vol] 84.5 fL Normal 81-99 [facility] Comment on above: Order Comment: [facility] ORDERED IGE IGE TO SHRIMP AND SEASAME SEED Performed By: #### L 5500.0410, L3410.2400, L3300.1200, L506.0250, L700.6800, L2100.0000, L503.0105, L506.1000, L500.4050, L503.6075, L3200.1100, L501.6710, L101.9900, L100.0100 ####[facility] [address] [place], [address] Monocytes/100 WBC (Bld) 7.0 % Normal 0-10 [facility] Comment on above: Order Comment: [facility] ORDERED IGE IGE TO SHRIMP AND SEASAME SEED Performed By: #### L 5500.0410, L3410.2400, L3300.1200, L506.0250, L700.6800, L2100.0000, L503.0105, L506.1000, L500.4050, L503.6075, L3200.1100, L501.6710, L101.9900, L100.0100 ####[facility] [address] [place], [address] Neutrophils/100 WBC (Bld) 68.1 % Normal 47-70 [facility] Comment on above: Order Comment: [facility] ORDERED IGE IGE TO SHRIMP AND SEASAME SEED Performed By: #### L 5500.0410, L3410.2400, L3300.1200, L506.0250, L700.6800, L2100.0000, L503.0105, L506.1000, L500.4050, L503.6075, L3200.1100, L501.6710, L101.9900, L100.0100 ####[facility] [address] [place], [address] Nucleated RBC (Bld) [#/Vol] 0 10*3/uL Normal 0-5 [facility] Comment on above: Order Comment: [facility] ORDERED IGE IGE TO SHRIMP AND SEASAME SEED Performed By: #### L 5500.0410, L3410.2400, L3300.1200, L506.0250, L700.6800, L2100.0000, L503.0105, L506.1000, L500.4050, L503.6075, L3200.1100, L501.6710, L101.9900, L100.0100 ####[facility] [address] [place], [address] Platelet mean volume (Bld) [Entitic vol] 10.4 fL Normal 6.2-12.0 [facility] Comment on above: Order Comment: [facility] ORDERED IGE IGE TO SHRIMP AND SEASAME SEED Performed By: #### L 5500.0410, L3410.2400, L3300.1200, L506.0250, L700.6800, L2100.0000, L503.0105, L506.1000, L500.4050, L503.6075, L3200.1100, L501.6710, L101.9900, L100.0100 ####[facility] [address] [place], [address] Platelets (Bld) [#/Vol] 264 10*3/uL Normal 150-450 [facility] Comment on above: Order Comment: [facility] ORDERED IGE IGE TO SHRIMP AND SEASAME SEED Performed By: #### L 5500.0410, L3410.2400, L3300.1200, L506.0250, L700.6800, L2100.0000, L503.0105, L506.1000, L500.4050, L503.6075, L3200.1100, L501.6710, L101.9900, L100.0100 ####[facility] [address] [place], [address] RBC (Bld) [#/Vol] 3.86 10*6/uL Low 4.2-5.4 [facility] Comment on above: Order Comment: [facility] ORDERED IGE IGE TO SHRIMP AND SEASAME SEED Performed By: #### L 5500.0410, L3410.2400, L3300.1200, L506.0250, L700.6800, L2100.0000, L503.0105, L506.1000, L500.4050, L503.6075, L3200.1100, L501.6710, L101.9900, L100.0100 ####[facility] [address] [place], [place], [phone] RDW SD 44.2 fl High 35.1-43.9 [facility] Comment on above: Order Comment: [facility] ORDERED IGE IGE TO SHRIMP AND SEASAME SEED Performed By: #### L 5500.0410, L3410.2400, L3300.1200, L506.0250, L700.6800, L2100.0000, L503.0105, L506.1000, L500.4050, L503.6075, L3200.1100, L501.6710, L101.9900, L100.0100 ####[facility] [address] [place], [place], [phone] WBC (Bld) [#/Vol] 7.0 10*3/uL Normal 4.4-11.0 [facility] Comment on above: Order Comment: [facility] ORDERED IGE IGE TO SHRIMP AND SEASAME SEED Performed By: #### L 5500.0410, L3410.2400, L3300.1200, L506.0250, L700.6800, L2100.0000, L503.0105, L506.1000, L500.4050, L503.6075, L3200.1100, L501.6710, L101.9900, L100.0100 ####[facility] [address] [place], [place], [phone] CRPon 03-17-2024 C-REACTIVE PROT 9.42 mg/L High 0.0-3.0 [facility] Comment on above: Order Comment: [facility] ORDERED IGE IGE TO SHRIMP AND SEASAME SEEDN Result Comment: C-Re active Protein (CRP) provides useful information for thediagnosis, therapy and monitoring of inflammatory processesand associated diseases. For the evaluation of Relative Riskfor Cardiovascular Disease, a High Sensitivity CRP (HSCRP)should be ordered. Performed By: #### L 5500.0410, L3410.2400, L3300.1200, L506.0250, L700.6800, L2100.0000, L503.0105, L506.1000, L500.4050, L503.6075, L3200.1100, L501.6710, L101.9900, L100.0100 ####[facility] [address] [place], [address] Calcium [Mass/Vol]Ordered By : Joy Shepard on 03-17-2024 Serum or plasma calcium measurement (mass/volume) 9.6 mg/dL 8.5-10.1 [facility] Carbon dioxide measurementOr dered By: Joy Shepard on 03-17-2024 CO2 [Moles/Vol] 24.0 mmol/L 21.0-32.0 [facility] Carbon dioxide measurement 24.0 mmol/L 21.0-32. 0 [facility] Chitobioside IgA IA QnOrdere d By: Joy Shepard on 03-17-2024 Chitobioside Carbohydrat (ACCA) IgA 100 units High 0-90 [facility] Comment on above: Negative: <80 Equivo merlyn: 80-90 Positive: >90 Chitobioside IgA antibody assay 100 units High 0-90 [facility] Chloride measurementOrdered By: Joy Shepard on 03-17-2024 Chloride [Moles/Vol] 109 mmol/L High 98-107 [facility] Chloride measurement 109 mmol/L High 98-107 [facility] Clam IgE Qn (S)Ordered By: Ina Shepard on 03-17-2024 Clam Allergen (RAST) <0.10 kU/L Class 0 [facility] Codfish IgE Qn (S)Ordered By : Joy Shepard on 03-17-2024 Codfish Allergen (RAST) <0.10 kU/L Class 0 [facility] Complement C1 esterase inhib itor.functional QlOrdered By: Brian Friend on 03-17-2024 Functional C1 Esterase Inhibitor >110 . [facility] Comment on above: Result Units: %mean normal Abnormal <41 Equivocal 41 - 67 Normal >67Performed at: [facility] [id number] [place], [place] [id number] Director: Uizel Abrams PhD, Phone: [phone] at: [facility] [address] [id number] Director: David King MD, Phone: [phone] Serum or plasma functional complement C1 esterase inhibitor detection >110 . [facility] Complement C4 [Mass/Vol]Orde red By: Brian Friend on 03-17-2024 Complement C4 32 mg/dL [facility] Serum or plasma complement C4 measurement (mass/volume) 32 mg/dL [facility] Comprehensive Metabolic Prof ilon 03-17-2024 Albumin [Mass/Vol] 3.1 g/dL Low 3.2-5.0 [facility] Comment on above: Order Comment: [facility]ina [facility] ORDERED IGE IGE TO SHRIMP AND SEASAME SEEDN Performed By: #### L 5500.0410, L3410.2400, L3300.1200, L506.0250, L700.6800, L2100.0000, L503.0105, L506.1000, L500.4050, L503.6075, L3200.1100, L501.6710, L101.9900, L100.0100 ####[facility] [address] [place], [place], [phone] Albumin/Globulin [Mass ratio] 0.8 {ratio} Low 0.9-2.4 [facility] Comment on above: Order Comment: [facility] ORDERED IGE IGE TO SHRIMP AND SEASAME SEEDN Performed By: #### L 5500.0410, L3410.2400, L3300.1200, L506.0250, L700.6800, L2100.0000, L503.0105, L506.1000, L500.4050, L503.6075, L3200.1100, L501.6710, L101.9900, L100.0100 ####[facility] [id number] [place], [place], [id number] ALK P 113 U/L Normal 45-117 [facility] Comment on above: [facility] IGE IGE TO SHRIMP AND SEASAME SEEDN Performed By: #### L 5500.0410, L3410.2400, L3300.1200, L506.0250, L700.6800, L2100.0000, L503.0105, L506.1000, L500.4050, L503.6075, L3200.1100, L501.6710, L101.9900, L100.0100 ####[facility] [id number] [place], [address] ALT [Catalytic activity/Vol] 19 U/L Normal 13-56 [facility] Comment on above: Order Comment: [facility] ORDERED IGE IGE TO SHRIMP AND SEASAME SEEDN Performed By: #### L 5500.0410, L3410.2400, L3300.1200, L506.0250, L700.6800, L2100.0000, L503.0105, L506.1000, L500.4050, L503.6075, L3200.1100, L501.6710, L101.9900, L100.0100 ####[facility] [address] [place], [place], [id number] AST [Catalytic activity/Vol] 14 U/L Low 15-37 [facility] Comment on above: Order Comment: [facility] IGE IGE TO SHRIMP AND SEASAME SEEDN Performed By: #### L 5500.0410, L3410.2400, L3300.1200, L506.0250, L700.6800, L2100.0000, L503.0105, L506.1000, L500.4050, L503.6075, L3200.1100, L501.6710, L101.9900, L100.0100 ####[facility] [address] [place], [place], [phone] Bilirubin [Mass/Vol] 0.40 mg/dL Normal 0.20-1.00 [facility] Comment on above: Order Comment: [facility] IGE IGE TO SHRIMP AND SEASAME SEEDN Result Comment: For patients on eltrombopag therapy, use of Dimension [place] TBIL is not recommended. Performed By: #### L 5500.0410, L3410.2400, L3300.1200, L506.0250, L700.6800, L2100.0000, L503.0105, L506.1000, L500.4050, L503.6075, L3200.1100, L501.6710, L101.9900, L100.0100 ####[facility] [address] [place], [address] BUN/CRE 19.2 RATIO Normal 10-20 [facility] Comment on above: Order Comment: [facility] ORDERED IGE IGE TO SHRIMP AND SEASAME SEEDN Performed By: #### L 5500.0410, L3410.2400, L3300.1200, L506.0250, L700.6800, L2100.0000, L503.0105, L506.1000, L500.4050, L503.6075, L3200.1100, L501.6710, L101.9900, L100.0100 ####[facility] [address] [place], [address] CA,Total 9.6 mg/dL Normal 8.5-10.1 [facility] Comment on above: Order Comment: [facility] ORDERED IGE IGE TO SHRIMP AND SEASAME SEEDN Performed By: #### L 5500.0410, L3410.2400, L3300.1200, L506.0250, L700.6800, L2100.0000, L503.0105, L506.1000, L500.4050, L503.6075, L3200.1100, L501.6710, L101.9900, L100.0100 ####[facility] [address] [place], [place], [phone] Chloride [Moles/Vol] 109 mmol/L High 98-107 [facility] Comment on above: Order Comment: [facility] ORDERED IGE IGE TO SHRIMP AND SEASAME SEEDN Performed By: #### L 5500.0410, L3410.2400, L3300.1200, L506.0250, L700.6800, L2100.0000, L503.0105, L506.1000, L500.4050, L503.6075, L3200.1100, L501.6710, L101.9900, L100.0100 ####[facility] [address] [place], [place], [phone] CO2 [Moles/Vol] 24.0 mmol/L Normal 21.0-32.0 [facility] Comment on above: Order Comment: [facility] ORDERED IGE IGE TO SHRIMP AND SEASAME SEEDN Performed By: #### L 5500.0410, L3410.2400, L3300.1200, L506.0250, L700.6800, L2100.0000, L503.0105, L506.1000, L500.4050, L503.6075, L3200.1100, L501.6710, L101.9900, L100.0100 ####[facility] [address] [place], [place], [phone] Creatinine [Mass/Vol] 0.57 mg/dL Normal 0.55-1.02 [facility] Comment on above: Order Comment: [facility] ORDERED IGE IGE TO SHRIMP AND SEASAME SEEDN Result Comment: The validity of the calculated GFR GFRAA in patients over70 years has not been determined. Clinical correlation isessential. Performed By: #### L 5500.0410, L3410.2400, L3300.1200, L506.0250, L700.6800, L2100.0000, L503.0105, L506.1000, L500.4050, L503.6075, L3200.1100, L501.6710, L101.9900, L100.0100 ####[facility] [address] [place], [address] ECRCL 160.35 ml/min Normal [facility] Comment on above: Order Comment: [facility] ORDERED IGE IGE TO SHRIMP AND SEASAME SEEDN Performed By: #### L 5500.0410, L3410.2400, L3300.1200, L506.0250, L700.6800, L2100.0000, L503.0105, L506.1000, L500.4050, L503.6075, L3200.1100, L501.6710, L101.9900, L100.0100 ####[facility] [address] [place], [address] EST GFR - AA 145 mL/min Normal >60 [facility] Comment on above: Order Comment: [facility] ORDERED IGE IGE TO SHRIMP AND SEASAME SEEDN Result Comment: Afri can Mozambican GFR Calc Performed By: #### L 5500.0410, L3410.2400, L3300.1200, L506.0250, L700.6800, L2100.0000, L503.0105, L506.1000, L500.4050, L503.6075, L3200.1100, L501.6710, L101.9900, L100.0100 ####[facility] [address] [place], [address] GAP 7 Normal 5-15 [facility] Comment on above: Order Comment: [facility] ORDERED IGE IGE TO SHRIMP AND SEASAME SEEDN Performed By: #### L 5500.0410, L3410.2400, L3300.1200, L506.0250, L700.6800, L2100.0000, L503.0105, L506.1000, L500.4050, L503.6075, L3200.1100, L501.6710, L101.9900, L100.0100 ####[facility] [address] [place], [address] GFR/1.73 sq M.predicted among non-blacks MDRD (S/P/Bld) [Vol rate/Area] 120 mL/min/{1.73_m2} Normal >60 [facility] Comment on above: Order Comment[facility] IGE IGE TO SHRIMP AND SEASAME SEEDN Result Comment: Non- GFR Calc Performed By: #### L 5500.0410, L3410.2400, L3300.1200, L506.0250, L700.6800, L2100.0000, L503.0105, L506.1000, L500.4050, L503.6075, L3200.1100, L501.6710, L101.9900, L100.0100 ####[facility] [address] [place], [address] Globulin (S) [Mass/Vol] 4.0 g/dL Normal 2.2-4.2 [facility] Comment on above: Order Comment: [facility] ORDERED IGE IGE TO SHRIMP AND SEASAME SEEDN Performed By: #### L 5500.0410, L3410.2400, L3300.1200, L506.0250, L700.6800, L2100.0000, L503.0105, L506.1000, L500.4050, L503.6075, L3200.1100, L501.6710, L101.9900, L100.0100 ####[facility] [address] [place], [address] Glucose [Mass/Vol] 92 mg/dL Normal 74-106 [facility] Comment on above: Order Comment: [facility] ORDERED IGE IGE TO SHRIMP AND SEASAME SEEDN Performed By: #### L 5500.0410, L3410.2400, L3300.1200, L506.0250, L700.6800, L2100.0000, L503.0105, L506.1000, L500.4050, L503.6075, L3200.1100, L501.6710, L101.9900, L100.0100 ####[facility] [address] [place], [place], [phone] Potassium [Moles/Vol] 3.5 mmol/L Normal 3.5-5.1 [facility] Comment on above: Order Comment: [facility] ORDERED IGE IGE TO SHRIMP AND SEASAME SEEDN Performed By: #### L 5500.0410, L3410.2400, L3300.1200, L506.0250, L700.6800, L2100.0000, L503.0105, L506.1000, L500.4050, L503.6075, L3200.1100, L501.6710, L101.9900, L100.0100 ####[facility] [address] [place], [place], [phone] Sodium [Moles/Vol] 140 mmol/L Normal 136-145 [facility] Comment on above: Order Comment: [facility] ORDERED IGE IGE TO SHRIMP AND SEASAME SEEDN Performed By: #### L 5500.0410, L3410.2400, L3300.1200, L506.0250, L700.6800, L2100.0000, L503.0105, L506.1000, L500.4050, L503.6075, L3200.1100, L501.6710, L101.9900, L100.0100 ####[facility] [address] [place], [place], [phone] T PROT 7.1 g/dL Normal 6.4-8.2 [facility] Comment on above: Order Comment: [facility] ORDERED IGE IGE TO SHRIMP AND SEASAME SEEDN Performed By: #### L 5500.0410, L3410.2400, L3300.1200, L506.0250, L700.6800, L2100.0000, L503.0105, L506.1000, L500.4050, L503.6075, L3200.1100, L501.6710, L101.9900, L100.0100 ####[facility] [address] [place], [place], [phone] Urea nitrogen [Mass/Vol] 11 mg/dL Normal 7-18 [facility] Comment on above: Order Comment: [facility] ORDERED IGE IGE TO SHRIMP AND SEASAME SEEDN Performed By: #### L 5500.0410, L3410.2400, L3300.1200, L506.0250, L700.6800, L2100.0000, L503.0105, L506.1000, L500.4050, L503.6075, L3200.1100, L501.6710, L101.9900, L100.0100 ####[facility] [address] [place], [place], [phone] [place] IgE Qn (S)Ordered By: Ina Shepard on 03-17-2024 [place] Allergen (RAST) <0.10 kU/L Class 0 [facility] Cow milk IgE Qn (S)Ordered B y: Joy Shepard on 03-17-2024 Cow's Milk Allergen <0.10 kU/L Class 0 [facility] Creatinine [Mass/Vol]Ordered By: Joy Shepard on 03-17-2024 Serum or plasma creatinine measurement (mass/volume) 0.57 mg/dL 0.55-1.02 [facility] EGD Reporton 03-17-2024 EGD Report Normal [facility] ESR (Bld) [Velocity]Ordered By: Joy Shepard on 03-17-2024 Erythrocyte sedimentation rate 35 mm/hr High 0-30 [facility] Egg white IgE Qn (S)Ordered By: Joy Shepard on 03-17-2024 Egg White Allergen (RAST) <0.10 kU/L Class 0 [facility] Endomysial IgA antibody assa yOrdered By: Joy Shepard on 03-17-2024 Endomysial IgA Antibody Negative Negative [facility] Eosinophil percentageOrdered By: Joy Shepard on 03-17-2024 Eosinophils/100 WBC (Bld) 2.7 % 0-5 [facility] Eosinophil percentage 2.7 % 0-5 [facility] Erythrocyte Sed Rateon 03-17 SED RATE 35 mm/hr High 0-30 [facility] Comment on above: Order Comment: [facility] ORDERED IGE IGE TO SHRIMP AND SEASAME SEED Performed By: #### L 5500.0410, L3410.2400, L3300.1200, L506.0250, L700.6800, L2100.0000, L503.0105, L506.1000, L500.4050, L503.6075, L3200.1100, L501.6710, L101.9900, L100.0100 ####[facility] [address] [place], [address] Erythrocyte distribution wid th (RBC) [Entitic vol]Ordered By: Joy Shepard on 03-17-2024 Erythrocyte distribution width standard deviation 44.2 fl High 35.1-43.9 [facility] Erythrocyte distribution wid th (RBC) [Ratio]Ordered By: Joy Shepard on 03-17-2024 Erythrocyte distribution width ratio 14.5 % 11.6-14.6 [facility] Erythrocyte distribution width (RBC) [Entitic vol] 44.2 fL High 35.1-43.9 [facility] Erythrocyte distribution wid th ratioOrdered By: Joy Shepard on 03-17-2024 Erythrocyte distribution width (RBC) [Ratio] 14.5 % 11.6-14.6 [facility] Erythrocyte sedimentation ra teOrdered By: Joy Shepard on 03-17-2024 ESR (Bld) [Velocity] 35 mm/h High 0-30 [facility] Estimated glomerular filtrat ion rate (GFR) AmericanOrdered By: Joy Shepard on 03-17-2024 Estimated GFR (MDRD) Amer 145 mL/min >60 [facility] Comment on above: GFR Calc Estimated glomerular filtration rate (GFR) 145 mL/min >60 [facility] Estimation of creatinine orin aranceOrdered By: Joy Shepard on 03-17-2024 Estimated Creatinine Clearance Calc 160.35 ml/min [facility] Estimation of creatinine clearance 160.35 ml/min [facility] Folates, (Folic Acid)on 03-02 FOLATES 8.50 ng/mL Normal 3.1-55.4 [facility] Comment on above: Order Comment: [facility] ORDERED IGE IGE TO SHRIMP AND SEASAME SEEDN Performed By: #### L 5500.0410, L3410.2400, L3300.1200, L506.0250, L700.6800, L2100.0000, L503.0105, L506.1000, L500.4050, L503.6075, L3200.1100, L501.6710, L101.9900, L100.0100 ####[facility] [address] [place], [address] Folic acid measurementOrdere d By: Joy Shepard on 03-17-2024 Folate 8.50 ng/mL 3.1-55.4 [facility] Folic acid measurement 8.50 ng/mL 3.1-55.4 [facility] Glomerular filtration rate ( GFR) estimationOrdered By: Joy Shepard on 03-17-2024 Estimated GFR (MDRD) Non-Af Amer 120 mL/min >60 [facility] Comment on above: Non- GFR Calc Glomerular filtration rate (GFR) estimation 120 mL/min >60 [facility] Glucose measurementOrdered B y: Joy Shepard on 03-17-2024 Glucose [Mass/Vol] 92 mg/dL 74-106 [facility] Glucose measurement 92 mg/dL 74-106 [facility] Hematocrit Auto (Bld) [Volum e fraction]Ordered By: Joy Shepard on 03-17-2024 Hematocrit (Bld) [Volume fraction] 32.6 % Low 37-47 [facility] Automated blood hematocrit (percentage) 32.6 % Low 37-47 [facility] Hemoglobin measurementOrdere d By: Joy Shepard on 03-17-2024 Hemoglobin (Bld) [Mass/Vol] 10.7 g/dL Low 12.0-15.0 [facility] Hemoglobin measurement 10.7 g/dL Low 12.0-15.0 [facility] IgA [Mass/Vol]Ordered By: Joi Shepard on 03-17-2024 Immunoglobulin A 216 mg/dL 87-352 [facility] Serum or plasma IgA measurement (mass/volume) 216 mg/dL 87-352 [facility] IgEOrdered By: Joy whiting on 03-17-2024 Immunoglobulin E 24 IU/mL 6-495 [facility] IgE 24 IU/mL 6-495 [facility] IgG [Mass/Vol]Ordered By: Joi Shepard on 03-17-2024 Immunoglobulin G 1022 mg/dL 586-1602 [facility] Serum or plasma IgG measurement (mass/volume) 1022 mg/dL 586-1602 [facility] Immature granulocytes/100 WB C Auto (Bld)Ordered By: Joy Shepard on 03-17-2024 Immature granulocytes/100 WBC (Bld) 0.400 % 0.0-0.9 [facility] Comment on above: IG% - Immature Granu locytes (promyelocytes, myelocytes and metamyelocytes) > 1% indicates that a LEFT SHIFT is Present. Automated immature granulocyte percentage 0.400 % 0.0-0.9 [facility] Immunoglobulin M measurement Ordered By: Joy Shepard on 03-17-2024 Immunoglobulin M 41 mg/dL 26-217 [facility] Immunoglobulin M measurement 41 mg/dL -217 [facility] Iron Binding Capacity,Totalo n 03-17-2024 TIBC 316 ug/dL Normal 250-450 [facility] Comment on above: Order Comment: [facility] ORDERED IGE IGE TO SHRIMP AND SEASAME SEEDN Performed By: #### L 5500.0410, L3410.2400, L3300.1200, L506.0250, L700.6800, L2100.0000, L503.0105, L506.1000, L500.4050, L503.6075, L3200.1100, L501.6710, L101.9900, L100.0100 ####[facility] [address] [place], [address] Laboratory - Chemistry and C hemistry - challengeOrdered By: Joy Sheprad on 03-17-2024 AST [Catalytic activity/Vol] 14 U/L Low 15-37 [facility] Laboratory comment Gonzales (Repo rt)Ordered By: Joy Shepard on 03-17-2024 IBD Serology Comment Comment High . [facility] Comment on above: Suggestive of Crohn' s Disease. Pattern is not conclusivefor disease behavior risk stratification. Laminaribioside IgG IA QnOrd ered By: Joy Shepard on 03-17-2024 Laminaribioside Carbohyd (ALCA) IgG 0 units 0-60 [facility] Comment on above: Negative:<55 Equivoc al: 55-60 Positive: >60 Laminaribioside carbohydrate IgG antibody assay 0 units 0-60 [facility] Lymphocytes Auto (Unsp spec) [#/Vol]Ordered By: Joy Shepard on 03-17-2024 Lymphocytes (Bld) [#/Vol] 1.48 10*3/uL 0.83-4.5 1 [facility] Absolute lymphocyte count 1.48 X10^3/uL 0.83-4. 51 [facility] Lymphocytes/100 WBC Auto (Un sp spec)Ordered By: Joy Shepard on 03-17-2024 Lymphocytes/100 WBC (Bld) 21.2 % [facility] Automated lymphocyte count as percentage of total leukocytes 21.2 % - [facility] MCV (RBC) [Entitic vol]Order ed By: Joy Shepard on 03-17-2024 MCV (mean corpuscular volume) determination 84.5 fL 81-99 [facility] MCV (mean corpuscular volume ) determinationOrdered By: Joy Shepard on 03-17-2024 MCV (RBC) [Entitic vol] 84.5 fL 81-99 [facility] MR/POSTOP.ANEon 03-17-2024 MR/POSTOP.ANE Normal [facility] MR/[id number] 03-17-2024 MR/POSTOPAN2 Normal [facility] Mannobioside IgG IA QnOrdere d By: Joy Shepard on 03-17-2024 Mannobioside Carbohydrat (AMCA) IgG 20 units 0-100 [facility] Comment on above: Negative: <90 Equivo merlyn: 90-100 Positive: >100 This test was developed and its performance characteristics determined by [facility]. It has not been cleared or approved by the Food and Drug Administration. The FDA has determined that such clearance or approval is not necessary. Serum or plasma mannobioside IgG antibody assay by immunoassay (units/volume) 20 units 0-100 [facility] Mean corpuscular hemoglobin (MCH) determinationOrdered By: Joy Shepard on 03-17-2024 MCH (RBC) [Entitic mass] 27.7 pg 27.0-32.0 [facility] Mean corpuscular hemoglobin (MCH) determination 27.7 pg 27.0-32.0 [facility] Mean corpuscular hemoglobin concentration (MCHC) determinationOrdered By: Joy Shepard on 03-17-2024 MCHC (RBC) [Mass/Vol] 32.8 g/dL 32-36 [facility] Mean corpuscular hemoglobin concentration (MCHC) determination 32.8 g/dL 32-36 [facility] Mean platelet volume determi nationOrdered By: Joy Shepard on 03-17-2024 Platelet mean volume (Bld) [Entitic vol] 10.4 fL 6.2-12.0 [facility] Mean platelet volume determination 10.4 fl 6.2-12.0 [facility] Monocyte percentageOrdered B y: Joy Shepard on 03-17-2024 Monocytes/100 WBC (Bld) 7.0 % 0-10 [facility] Monocyte percentage 7.0 % 0-10 [facility] Neutrophil cytoplasmic Ab.cl assic Qn (S)Ordered By: Joy Shepard on 03-17-2024 Cytoplasmic ANCA (c-ANCA) Antibody <1:20 titer Neg:<1:20 [facility] Neutrophil cytoplasmic Ab.pe rinuclear IF (S) [Titer]Ordered By: Joy Shepard on 03-17-2024 Perinuclear ANCA (p-ANCA) Antibody <1:20 titer Neg:<1:20 [facility] Comment on above: The presence of posi tive fluorescence exhibiting P-ANCA orC-ANCA patterns alone is not specific for the diagnosis ofWegener's Granulomatosis (WG) or microscopic polyangiitis.Decisions about treatment should not be based solely onANCA IFA results. The International ANCA Group Consensusrecommends follow up testing of positive sera with both UT-3 and MPO-ANCA enzyme immunoassays. As many as 5% serumsamples are positive only by EIA. Ref. AM J Clin Exhfiy7946;111:507-513. Neutrophil percentageOrdered By: Joy Shepard on 03-17-2024 Neutrophils/100 WBC (Bld) 68.1 % 47-70 [facility] Neutrophil percentage 68.1 % 47-70 [facility] No Panel InformationOrdered By: Joy Shepard on 03-17-2024 14 U/L Low 15-37 [facility] Comment . [facility] Nucleated red blood cell per centageOrdered By: Joy Shepard on 03-17-2024 Nucleated RBC/100 WBC (Bld) [Ratio] 0 % 0-5 [facility] Nucleated red blood cell percentage 0 % 0-5 [facility] Peanut IgE Qn (S)Ordered By: Joy Shepard on 03-17-2024 Peanut Allergen (RAST) <0.10 kU/L Class 0 [facility] Platelet countOrdered By: Joi Shepard on 03-17-2024 Platelets (Bld) [#/Vol] 264 10*3/uL 150-450 [facility] Platelet count 264 K/mm3 150-450 [facility] Potassium measurementOrdered By: Joy Shepard on 03-17-2024 Potassium [Moles/Vol] 3.5 mmol/L 3.5-5.1 [facility] Potassium measurement 3.5 mmol/L 3.5-5.1 [facility] ,Serum,hCG Quali.on 03-17-2024 HCG, SERUM QUAL Negative Normal [facility] Comment on above: Order Comment: [facility] ORDERED IGE IGE TO SHRIMP AND SEASAME SEED Performed By: #### L 5500.0410, L3410.2400, L3300.1200, L506.0250, L700.6800, L2100.0000, L503.0105, L506.1000, L500.4050, L503.6075, L3200.1100, L501.6710, L101.9900, L100.0100 ####[facility] [address] [place], [address] RBC Auto (Bld) [#/Vol]Ordere d By: Joy Shepard on 03-17-2024 RBC (Bld) [#/Vol] 3.86 10*6/uL Low 4.2-5.4 [facility] Automated blood erythrocyte count 3.86 M/mm3 Low 4.2-5.4 [facility] Scallop IgE serumOrdered By: Joy Shepard on 03-17-2024 Scallop Allergen <0.10 kU/L Class 0 [facility] Serum anion gap measurementO rdered By: Joy Shepard on 03-17-2024 Anion gap [Moles/Vol] 7 mmol/L 5-15 [facility] Serum anion gap measurement 7 5-15 [facility] Serum beta-hCG test, qualita tiveOrdered By: Joy Shepard on 03-17-2024 Serum beta-hCG test, qualitative Negative Negative [facility] Serum classic neutrophil cyt oplasmic antibody assay (units/volume)Ordered By: Joy Shepard on 03-17-2024 Serum classic neutrophil cytoplasmic antibody assay (units/volume) <1:20 titer Neg:<1:20 [facility] Serum cow milk IgE antibody assay (units/volume)Ordered By: Joy Shepard on 03-17-2024 Serum cow milk IgE antibody assay (units/volume) <0.10 kU/L Class 0 [facility] Serum globulin measurementOr dered By: Joy Shepard on 03-17-2024 Globulin (S) [Mass/Vol] 4.0 g/dL 2.2-4.2 [facility] Serum globulin measurement 4.0 g/dL 2.2-4.2 [facility] Serum or plasma alanine ronquillo otransferase (ALT) measurementOrdered By: Joy Shepard on 03-17-2024 ALT [Catalytic activity/Vol] 19 U/L 13-56 [facility] Serum or plasma albumin lizzeth urement (mass/volume)Ordered By: Joy Shepard on 03-17-2024 Albumin [Mass/Vol] 3.1 g/dL Low 3.2-5.0 [facility] Serum or plasma alkaline jarrett sphatase measurementOrdered By: Joyemiliana Shepard on 03-17-2024 ALP [Catalytic activity/Vol] 113 U/L 45-117 [facility] Serum or plasma calcium lizzeth urement (mass/volume)Ordered By: Joy Shepard on 03-17-2024 Calcium [Mass/Vol] 9.6 mg/dL 8.5-10.1 [facility] Serum or plasma creatinine m easurement (mass/volume)Ordered By: Joy Shepard on 03-17-2024 Creatinine [Mass/Vol] 0.57 mg/dL 0.55-1.02 [facility] Comment on above: The validity of the calculated GFR & GFRAA in patients over 70 years has not been determined. Clinical correlation is essential. Serum or plasma urea nitroge n measurement (mass/volume)Ordered By: Joy Shepard on 03-17-2024 Urea nitrogen [Mass/Vol] 11 mg/dL 7-18 [facility] Serum shrimp specific IgE an tibody assayOrdered By: Joy Shepard on 03-17-2024 Shrimp Allergen <0.10 kU/L Class 0 [facility] Service comment (Unsp spec) [Interp]Ordered By: Joy Shepard on 03-17-2024 RAST Comment Comment . [facility] Comment on above: Levels of Specific I gE Class Description of Class ----- < 0.10 0 Negative 0.10 - 0.31 0/I Equivocal/Low 0.32 - 0.55 I Low 0.56 - 1.40 II Moderate 1.41 - 3.90 III High 3.91 - 19.00 IV Very High 19.01 - 100.00 V Very High >100.00 Very High Sesame seed IgE serumOrdered By: Joy Shepard on 03-17-2024 Sesame Seed Allergen IgE Antibody <0.10 kU/L Class 0 [facility] Comment on above: Performed at: [address] [id number] Director: David King MD, Phone: [phone] Sodium levelOrdered By: Russel Shepard on 03-17-2024 Sodium [Moles/Vol] 140 mmol/L 136-145 [facility] Sodium level 140 mmol/L 136-145 [facility] Soybean IgE Qn (S)Ordered By : Joy Shepard on 03-17-2024 Soybean Allergen (RAST) <0.10 kU/L Class 0 [facility] Surgery Specimen Level Nick 03-17-2024 Surgery Specimen Level IV Normal [facility] Comment on above: Performed By: #### P SUIV ####[facility] [address] [place], [place], [phone] TIBCOrdered By: Joy phelps on 03-17-2024 Total Iron Binding Capacity 316 ug/dL 250-450 [facility] TIBC 316 ug/dL 250-450 [facility] Total proteinOrdered By: Chiquita Shepard on 03-17-2024 Protein [Mass/Vol] 7.1 g/dL 6.4-8.2 [facility] Total protein 7.1 g/dL 6.4-8.2 [facility] TryptaseOrdered By: Brian Zuniga on 03-17-2024 Tryptase 4.0 ug/L 2.2-13.2 [facility] Tryptase 4.0 ug/L 2.2-13.2 [facility] Urea nitrogen [Mass/Vol]Orde red By: Joy Shepard on 03-17-2024 Serum or plasma urea nitrogen measurement (mass/volume) 11 mg/dL 7-18 [facility] Vitamin B12on 03-17-2024 Cobalamin (Vitamin B12) [Mass/Vol] 453 pg/mL Normal 911 [facility] Comment on above: Order Comment: RICCO HANSEN ORDERED IGE IGE TO SHRIMP AND SEASAME SEED Performed By: #### L 5500.0410, L3410.2400, L3300.1200, L506.0250, L700.6800, L2100.0000, L503.0105, L506.1000, L500.4050, L503.6075, L3200.1100, L501.6710, L101.9900, L100.0100 ####[facility] [address] [place], [address] Vitamin B12 measurementOrder ed By: Joy Shepard on 03-17-2024 Cobalamin (Vitamin B12) [Mass/Vol] 453 pg/mL [facility] Vitamin B12 measurement 453 pg/mL [facility] Vitamin D,25 Hydroxyon 03-17 Vitamin D 25-OH 26.1 ng/mL Normal [facility] Comment on above: Order Comment: RICCO HANSEN ORDERED IGE IGE TO SHRIMP AND SEASAME SEED Result Comment: Kylee min D 25(OH) Status Range Deficiency <20 ng/mL (50nmol/L) Insufficiency 20 - 30 ng/mL (50 - 75 nmol/L) Sufficiency 30 - 100 ng/mL (75 - 250 nmol/L) Toxicity >100 ng/mL (>250 nmol/L) Performed By: #### L 5500.0410, L3410.2400, L3300.1200, L506.0250, L700.6800, L2100.0000, L503.0105, L506.1000, L500.4050, L503.6075, L3200.1100, L501.6710, L101.9900, L100.0100 ####[facility] [address] [place], [address] Wheat IgE Qn (S)Ordered By: Joy Shepard on 03-17-2024 Wheat Allergen (RAST) <0.10 kU/L Class 0 [facility] White blood cell (WBC) count Ordered By: Joy Shepard on 03-17-2024 WBC (Bld) [#/Vol] 7.0 10*3/uL 4.4-11.0 [facility] White blood cell (WBC) count 7.0 K/mm3 4.4-11.0 [facility] tTG IgA Qn (S)Ordered By: Joi Shepard on 03-17-2024 Tissue Transglutaminase IgA Ab <2 U/mL 0-3 [facility] Comment on above: Negative 0 - 3 Weak Positive 4 - 10 Positive >10 Tissue Transglutaminase (tTG) has been identified as the endomysial antigen. Studies have demonstr- ated that endomysial IgA antibodies have over 99% specificity for gluten sensitive enteropathy. Serum tissue transglutaminase (tTG) IgA antibody assay (units/volume) <2 U/mL 0-3 [facility] PRIMO Comprehensive Panelon ANTI-CENT B AB TNP Normal [facility] Comment on above: Result Comment: UTO Performed By: #### L 3410.2400, L3300.1200, L101.9900, L2100.0000, L503.6030, L3100.5440, L500.4050, L5500.0550, L3200.1100, L100.0100 ####[facility] [address] [place], [place], [phone] ANTI-ELAINE-1 TNP Normal [facility] Comment on above: Result Comment: UTO Performed By: #### L 3410.2400, L3300.1200, L101.9900, L2100.0000, L503.6030, L3100.5440, L500.4050, L5500.0550, L3200.1100, L100.0100 ####[facility] [address] [place], [place], [phone] ANTI-SS-A TNP Normal [facility] Comment on above: Result Comment: UTO Performed By: #### L 3410.2400, L3300.1200, L101.9900, L2100.0000, L503.6030, L3100.5440, L500.4050, L5500.0550, L3200.1100, L100.0100 ####[facility] [address] [place], [place], [phone] ANTI-SS-B TNP Normal [facility] Comment on above: Result Comment: UTO Performed By: #### L 3410.2400, L3300.1200, L101.9900, L2100.0000, L503.6030, L3100.5440, L500.4050, L5500.0550, L3200.1100, L100.0100 ####[facility] [address] [place], [place], [phone] ANTICHROMATIN TNP Normal [facility] Comment on above: Result Comment: UTO Performed By: #### L 3410.2400, L3300.1200, L101.9900, L2100.0000, L503.6030, L3100.5440, L500.4050, L5500.0550, L3200.1100, L100.0100 ####[facility] [address] [place], [place], [phone] ANTISCLERODERM TNP Normal [facility] Comment on above: Result Comment: UTO Performed By: #### L 3410.2400, L3300.1200, L101.9900, L2100.0000, L503.6030, L3100.5440, L500.4050, L5500.0550, L3200.1100, L100.0100 ####[facility] [address] [place], [address] DRAWBENCH OPERATOR HELPER Ab TNP Normal [facility] Comment on above: Result Comment: UTO Performed By: #### L 3410.2400, L3300.1200, L101.9900, L2100.0000, L503.6030, L3100.5440, L500.4050, L5500.0550, L3200.1100, L100.0100 ####[facility] [address] [place], [address] PALMER Ab TNP Normal [facility] Comment on above: Result Comment: UTO Performed By: #### L 3410.2400, L3300.1200, L101.9900, L2100.0000, L503.6030, L3100.5440, L500.4050, L5500.0550, L3200.1100, L100.0100 ####[facility] [address] [place], [address] PRIMO TABLE Normal [facility] Comment on above: Result Comment: UTO Performed By: #### L 3410.2400, L3300.1200, L101.9900, L2100.0000, L503.6030, L3100.5440, L500.4050, L5500.0550, L3200.1100, L100.0100 ####[facility] [address] [place], [address] ANTI-DNA (DS)AB Normal [facility] Comment on above: Result Comment: UTO Performed By: #### L 3410.2400, L3300.1200, L101.9900, L2100.0000, L503.6030, L3100.5440, L500.4050, L5500.0550, L3200.1100, L100.0100 ####[facility] [address] [place], [address] ANCAon 03-16-2024 Cytoplasmic Ab Normal Neg:<1:20 [facility] Comment on above: Order Comment: N Result Comment: UTO Performed By: #### L 3410.2400, L3300.1200, L101.9900, L2100.0000, L503.6030, L3100.5440, L500.4050, L5500.0550, L3200.1100, L100.0100 ####[facility] [address] [place], [address] Perinuclear Ab. Normal Neg:<1:20 [facility] Comment on above: Order Comment: N Result Comment: UTO Performed By: #### L 3410.2400, L3300.1200, L101.9900, L2100.0000, L503.6030, L3100.5440, L500.4050, L5500.0550, L3200.1100, L100.0100 ####[facility] [address] [place], [place], [phone] CBC W/Diff, Automatedon 03-02 Absolute Neut Normal 2.0-7.7 [facility] Comment on above: Result Comment: UTO Performed By: #### L 3410.2400, L3300.1200, L101.9900, L2100.0000, L503.6030, L3100.5440, L500.4050, L5500.0550, L3200.1100, L100.0100 ####[facility] [address] [place], [place], [phone] HCT Normal 37-47 [facility] Comment on above: Result Comment: UTO Performed By: #### L 3410.2400, L3300.1200, L101.9900, L2100.0000, L503.6030, L3100.5440, L500.4050, L5500.0550, L3200.1100, L100.0100 ####[facility] [address] [place], [place], [phone] HGB Normal 12.0-15.0 [facility] Comment on above: Result Comment: UTO Performed By: #### L 3410.2400, L3300.1200, L101.9900, L2100.0000, L503.6030, L3100.5440, L500.4050, L5500.0550, L3200.1100, L100.0100 ####[facility] [address] [place], [place], [phone] MCH Normal 27.0-32.0 [facility] Comment on above: Result Comment: UTO Performed By: #### L 3410.2400, L3300.1200, L101.9900, L2100.0000, L503.6030, L3100.5440, L500.4050, L5500.0550, L3200.1100, L100.0100 ####[facility] [address] [place], [address] MCHC Normal 32-36 [facility] Comment on above: Result Comment: UTO Performed By: #### L 3410.2400, L3300.1200, L101.9900, L2100.0000, L503.6030, L3100.5440, L500.4050, L5500.0550, L3200.1100, L100.0100 ####[facility] [address] [place], [address] MCV Normal 81-99 [facility] Comment on above: Result Comment: UTO Performed By: #### L 3410.2400, L3300.1200, L101.9900, L2100.0000, L503.6030, L3100.5440, L500.4050, L5500.0550, L3200.1100, L100.0100 ####[facility] [address] [place], [address] NEUT% Normal 47-70 [facility] Comment on above: Result Comment: UTO Performed By: #### L 3410.2400, L3300.1200, L101.9900, L2100.0000, L503.6030, L3100.5440, L500.4050, L5500.0550, L3200.1100, L100.0100 ####[facility] [address] [place], [address] PLT Normal 150-450 [facility] Comment on above: Result Comment: UTO Performed By: #### L 3410.2400, L3300.1200, L101.9900, L2100.0000, L503.6030, L3100.5440, L500.4050, L5500.0550, L3200.1100, L100.0100 ####[facility] [address] [place], [address] RBC Normal 4.2-5.4 [facility] Comment on above: Result Comment: UTO Performed By: #### L 3410.2400, L3300.1200, L101.9900, L2100.0000, L503.6030, L3100.5440, L500.4050, L5500.0550, L3200.1100, L100.0100 ####[facility] [address] [place], [address] RDW CV Normal 11.6-14.6 [facility] Comment on above: Result Comment: UTO Performed By: #### L 3410.2400, L3300.1200, L101.9900, L2100.0000, L503.6030, L3100.5440, L500.4050, L5500.0550, L3200.1100, L100.0100 ####[facility] [address] [place], [address] RDW SD Normal 35.1-43.9 [facility] Comment on above: Result Comment: UTO Performed By: #### L 3410.2400, L3300.1200, L101.9900, L2100.0000, L503.6030, L3100.5440, L500.4050, L5500.0550, L3200.1100, L100.0100 ####[facility] [address] [place], [address] WBC Normal 4.4-11.0 [facility] Comment on above: Result Comment: UTO Performed By: #### L 3410.2400, L3300.1200, L101.9900, L2100.0000, L503.6030, L3100.5440, L500.4050, L5500.0550, L3200.1100, L100.0100 ####[facility] [address] [place], [address] Celiac Disease Profileon tTG IGA Normal [facility] Comment on above: Order Comment: N Result Comment: UTO Performed By: #### L 3410.2400, L3300.1200, L101.9900, L2100.0000, L503.6030, L3100.5440, L500.4050, L5500.0550, L3200.1100, L100.0100 ####[facility] [address] [place], [address] Comprehensive Metabolic Prof ilon 03-16-2024 ALB Normal 3.2-5.0 [facility] Comment on above: Order Comment: N Result Comment: UTO Performed By: #### L 3410.2400, L3300.1200, L101.9900, L2100.0000, L503.6030, L3100.5440, L500.4050, L5500.0550, L3200.1100, L100.0100 ####[facility] [address] [place], [address] ALK P Normal 45-117 [facility] Comment on above: Order Comment: N Result Comment: UTO Performed By: #### L 3410.2400, L3300.1200, L101.9900, L2100.0000, L503.6030, L3100.5440, L500.4050, L5500.0550, L3200.1100, L100.0100 ####[facility] [address] [place], [address] ALT Normal 13-56 [facility] Comment on above: Order Comment: N Result Comment: UTO Performed By: #### L 3410.2400, L3300.1200, L101.9900, L2100.0000, L503.6030, L3100.5440, L500.4050, L5500.0550, L3200.1100, L100.0100 ####[facility] [address] [place], [address] AST Normal 15-37 [facility] Comment on above: Order Comment: N Result Comment: UTO Performed By: #### L 3410.2400, L3300.1200, L101.9900, L2100.0000, L503.6030, L3100.5440, L500.4050, L5500.0550, L3200.1100, L100.0100 ####[facility] [address] [place], [address] BUN Normal 7-18 [facility] Comment on above: Order Comment: N Result Comment: UTO Performed By: #### L 3410.2400, L3300.1200, L101.9900, L2100.0000, L503.6030, L3100.5440, L500.4050, L5500.0550, L3200.1100, L100.0100 ####[facility] [address] [place], [address] BUN/CRE Normal 10-20 [facility] Comment on above: Order Comment: N Result Comment: UTO Performed By: #### L 3410.2400, L3300.1200, L101.9900, L2100.0000, L503.6030, L3100.5440, L500.4050, L5500.0550, L3200.1100, L100.0100 ####[facility] [address] [place], [address] CA,Total Normal 8.5-10.1 [facility] Comment on above: Order Comment: N Result Comment: UTO Performed By: #### L 3410.2400, L3300.1200, L101.9900, L2100.0000, L503.6030, L3100.5440, L500.4050, L5500.0550, L3200.1100, L100.0100 ####[facility] [address] [place], [address] CL Normal 98-107 [facility] Comment on above: Order Comment: N Result Comment: UTO Performed By: #### L 3410.2400, L3300.1200, L101.9900, L2100.0000, L503.6030, L3100.5440, L500.4050, L5500.0550, L3200.1100, L100.0100 ####[facility] [address] [place], [place], [phone] CO2 Normal 21.0-32.0 [facility] Comment on above: Order Comment: N Result Comment: UTO Performed By: #### L 3410.2400, L3300.1200, L101.9900, L2100.0000, L503.6030, L3100.5440, L500.4050, L5500.0550, L3200.1100, L100.0100 ####[facility] [address] [place], [place], [phone] CREAT,SERUM Normal 0.55-1.02 [facility] Comment on above: Order Comment: N Result Comment: UTO Performed By: #### L 3410.2400, L3300.1200, L101.9900, L2100.0000, L503.6030, L3100.5440, L500.4050, L5500.0550, L3200.1100, L100.0100 ####[facility] [address] [place], [place], [phone] EST GFR Normal >60 [facility] Comment on above: Order Comment: N Result Comment: UTO Performed By: #### L 3410.2400, L3300.1200, L101.9900, L2100.0000, L503.6030, L3100.5440, L500.4050, L5500.0550, L3200.1100, L100.0100 ####[facility] [address] [place], [place], [phone] EST GFR - AA Normal >60 [facility] Comment on above: Order Comment: N Result Comment: UTO Performed By: #### L 3410.2400, L3300.1200, L101.9900, L2100.0000, L503.6030, L3100.5440, L500.4050, L5500.0550, L3200.1100, L100.0100 ####[facility] [address] [place], [address] GAP Normal 5-15 [facility] Comment on above: Order Comment: N Result Comment: UTO Performed By: #### L 3410.2400, L3300.1200, L101.9900, L2100.0000, L503.6030, L3100.5440, L500.4050, L5500.0550, L3200.1100, L100.0100 ####[facility] [address] [place], [address] GLU Normal 74-106 [facility] Comment on above: Order Comment: N Result Comment: UTO Performed By: #### L 3410.2400, L3300.1200, L101.9900, L2100.0000, L503.6030, L3100.5440, L500.4050, L5500.0550, L3200.1100, L100.0100 ####[facility] [address] [place], [address] Potassium Normal 3.5-5.1 [facility] Comment on above: Order Comment: N Result Comment: UTO Performed By: #### L 3410.2400, L3300.1200, L101.9900, L2100.0000, L503.6030, L3100.5440, L500.4050, L5500.0550, L3200.1100, L100.0100 ####[facility] [address] [place], [address] T BILI Normal 0.20-1.00 [facility] Comment on above: Order Comment: N Result Comment: UTO Performed By: #### L 3410.2400, L3300.1200, L101.9900, L2100.0000, L503.6030, L3100.5440, L500.4050, L5500.0550, L3200.1100, L100.0100 ####[facility] [address] [place], [place], [address] T PROT Normal 6.4-8.2 [facility] Comment on above: Order Comment: N Result Comment: UTO Performed By: #### L 3410.2400, L3300.1200, L101.9900, L2100.0000, L503.6030, L3100.5440, L500.4050, L5500.0550, L3200.1100, L100.0100 ####[facility] [address] [place], [place], [phone] Comprehensive Metabolic Profil Normal 136-145 [facility] Comment on above: Order Comment: N Result Comment: UTO Performed By: #### L 3410.2400, L3300.1200, L101.9900, L2100.0000, L503.6030, L3100.5440, L500.4050, L5500.0550, L3200.1100, L100.0100 ####[facility] [address] [place], [place], [address] Erythrocyte Sed Rateon 03-16 SED RATE Normal 0-30 [facility] Comment on above: Result Comment: UTO Performed By: #### L 3410.2400, L3300.1200, L101.9900, L2100.0000, L503.6030, L3100.5440, L500.4050, L5500.0550, L3200.1100, L100.0100 ####[facility] [address] [place], [address] Immunoglobulins G/A/M/Aldo IMMUNOGLOB A QN Normal [facility] Comment on above: Order Comment: N Result Comment: UTO Performed By: #### L 3410.2400, L3300.1200, L101.9900, L2100.0000, L503.6030, L3100.5440, L500.4050, L5500.0550, L3200.1100, L100.0100 ####[facility] [address] [place], [address] IMMUNOGLOB E [facility] Comment on above: Order Comment: N Result Comment: UTO Performed By: #### L 3410.2400, L3300.1200, L101.9900, L2100.0000, L503.6030, L3100.5440, L500.4050, L5500.0550, L3200.1100, L100.0100 ####[facility] [address] [place], [place], [address] IMMUNOGLOB G [facility] Comment on above: Order Comment: N Result Comment: UTO Performed By: #### L 3410.2400, L3300.1200, L101.9900, L2100.0000, L503.6030, L3100.5440, L500.4050, L5500.0550, L3200.1100, L100.0100 ####[facility] [address] [place], [place], [address] IMMUNOGLOB M [facility] Comment on above: Order Comment: N Result Comment: UTO Performed By: #### L 3410.2400, L3300.1200, L101.9900, L2100.0000, L503.6030, L3100.5440, L500.4050, L5500.0550, L3200.1100, L100.0100 ####[facility] [address] [place], [place], [phone] Iron+Iron Binding Capacityon 03-16-2024 IRON Normal 50-170 [facility] Comment on above: Order Comment: N Result Comment: UTO Performed By: #### L 3410.2400, L3300.1200, L101.9900, L2100.0000, L503.6030, L3100.5440, L500.4050, L5500.0550, L3200.1100, L100.0100 ####[facility] [address] [place], [place], [phone] IRON SATURATION Normal 15.0-55.0 [facility] Comment on above: Order Comment: N Result Comment: UTO Performed By: #### L 3410.2400, L3300.1200, L101.9900, L2100.0000, L503.6030, L3100.5440, L500.4050, L5500.0550, L3200.1100, L100.0100 ####[facility] [address] [place], [place], [phone] TIBC Normal 250-450 [facility] Comment on above: Order Comment: N Result Comment: UTO Performed By: #### L 3410.2400, L3300.1200, L101.9900, L2100.0000, L503.6030, L3100.5440, L500.4050, L5500.0550, L3200.1100, L100.0100 ####[facility] [address] [place], [place], [phone] L2100.0000on 03-16-2024 [facility] Comment on above: Order Comment: N Result Comment: UTO Performed By: #### L 3410.2400, L3300.1200, L101.9900, L2100.0000, L503.6030, L3100.5440, L500.4050, L5500.0550, L3200.1100, L100.0100 ####[facility] [address] [place], [place], [phone] [facility] Comment on above: Order Comment: N Result Comment: UTO Performed By: #### L 3410.2400, L3300.1200, L101.9900, L2100.0000, L503.6030, L3100.5440, L500.4050, L5500.0550, L3200.1100, L100.0100 ####[facility] [address] [place], [address] AMCA Normal [facility] Comment on above: Order Comment: N Result Comment: UTO Performed By: #### L 3410.2400, L3300.1200, L101.9900, L2100.0000, L503.6030, L3100.5440, L500.4050, L5500.0550, L3200.1100, L100.0100 ####[facility] [address] [place], [address] Atypical pANCA Normal [facility] Comment on above: Order Comment: N Result Comment: UTO Performed By: #### L 3410.2400, L3300.1200, L101.9900, L2100.0000, L503.6030, L3100.5440, L500.4050, L5500.0550, L3200.1100, L100.0100 ####[facility] [address] [place], [address] COMMENT Normal [facility] Comment on above: Order Comment: N Result Comment: UTO Performed By: #### L 3410.2400, L3300.1200, L101.9900, L2100.0000, L503.6030, L3100.5440, L500.4050, L5500.0550, L3200.1100, L100.0100 ####[facility] [address] [place], [address] Yasmine Normal [facility] Comment on above: Order Comment: N Result Comment: UTO Performed By: #### L 3410.2400, L3300.1200, L101.9900, L2100.0000, L503.6030, L3100.5440, L500.4050, L5500.0550, L3200.1100, L100.0100 ####[facility] [address] [place], [address] L5500.0550on 03-16-2024 [facility] Comment on above: Result Comment: UTO Performed By: #### L 3410.2400, L3300.1200, L101.9900, L2100.0000, L503.6030, L3100.5440, L500.4050, L5500.0550, L3200.1100, L100.0100 ####[facility] [address] [place], [address] [facility] Comment on above: Result Comment: UTO Performed By: #### L 3410.2400, L3300.1200, L101.9900, L2100.0000, L503.6030, L3100.5440, L500.4050, L5500.0550, L3200.1100, L100.0100 ####[facility] [address] [place], [address] [facility] Comment on above: Result Comment: UTO Performed By: #### L 3410.2400, L3300.1200, L101.9900, L2100.0000, L503.6030, L3100.5440, L500.4050, L5500.0550, L3200.1100, L100.0100 ####[facility] [address] [place], [address] [facility] Comment on above: Result Comment: UTO Performed By: #### L 3410.2400, L3300.1200, L101.9900, L2100.0000, L503.6030, L3100.5440, L500.4050, L5500.0550, L3200.1100, L100.0100 ####[facility] [address] [place], [address] [place], WHOLE [facility] Comment on above: Result Comment: UTO Performed By: #### L 3410.2400, L3300.1200, L101.9900, L2100.0000, L503.6030, L3100.5440, L500.4050, L5500.0550, L3200.1100, L100.0100 ####[facility] [address] [place], [place], [id number] MIL[place] (COW) Normal [facility] Comment on above: Result Comment: UTO Performed By: #### L 3410.2400, L3300.1200, L101.9900, L2100.0000, L503.6030, L3100.5440, L500.4050, L5500.0550, L3200.1100, L100.0100 ####[facility] [address] [place], [place], [id number] [place] [facility] Comment on above: Result Comment: UTO Performed By: #### L 3410.2400, L3300.1200, L101.9900, L2100.0000, L503.6030, L3100.5440, L500.4050, L5500.0550, L3200.1100, L100.0100 ####[facility] [address] [place], [place], [id number] [place] [facility] Comment on above: Result Comment: UTO Performed By: #### L 3410.2400, L3300.1200, L101.9900, L2100.0000, L503.6030, L3100.5440, L500.4050, L5500.0550, L3200.1100, L100.0100 ####[facility] [address] [place], [place], [id number] [place] [facility] Comment on above: Result Comment: UTO Performed By: #### L 3410.2400, L3300.1200, L101.9900, L2100.0000, L503.6030, L3100.5440, L500.4050, L5500.0550, L3200.1100, L100.0100 ####[facility] [address] [place], [place], [id number] [facility] Comment on above: Result Comment: UTO Performed By: #### L 3410.2400, L3300.1200, L101.9900, L2100.0000, L503.6030, L3100.5440, L500.4050, L5500.0550, L3200.1100, L100.0100 ####[facility] [address] [place], [place], [id number] [facility] Comment on above: Result Comment: UTO Performed By: #### L 3410.2400, L3300.1200, L101.9900, L2100.0000, L503.6030, L3100.5440, L500.4050, L5500.0550, L3200.1100, L100.0100 ####[facility] [address] [place], [address] [facility] Comment on above: Result Comment: UTO Performed By: #### L 3410.2400, L3300.1200, L101.9900, L2100.0000, L503.6030, L3100.5440, L500.4050, L5500.0550, L3200.1100, L100.0100 ####[facility] [address] [place], [address] [facility] Comment on above: Result Comment: UTO Performed By: #### L 3410.2400, L3300.1200, L101.9900, L2100.0000, L503.6030, L3100.5440, L500.4050, L5500.0550, L3200.1100, L100.0100 ####[facility] [address] [place], [address] [facility] Comment on above: Result Comment: UTO Performed By: #### L 3410.2400, L3300.1200, L101.9900, L2100.0000, L503.6030, L3100.5440, L500.4050, L5500.0550, L3200.1100, L100.0100 ####[facility] [address] [place], [address] MR/PAT.ANEon 03-16-2024 MR/PAT.ANE Normal [facility] Sesame Seedon 03-16-2024 SESAME SEED Normal [facility] Comment on above: Result Comment: JOSSUE Thomas ACCOUNT # Performed By: #### L 5530.1449, L5530.1439 ####[facility] [address] [place], [address] Shrimpon 03-16-2024 SHRIMP Normal [facility] Comment on above: Result Comment: JOSSUE Thomas ACCOUNT # Performed By: #### L 5530.1449, L5530.1439 ####[facility] [address] [place], [address] Gastroenterology Visit Repor ton 03-03-2024 Gastroenterology Visit Report Normal [facility] SP/HP.SP.Leyla 02-29-2024 SP/HP.SP.EV Normal [facility] Chest PA and Lateralon 02-19 Chest PA and Lateral Normal [facility] Emergency Department Summary on 02-20-2024 Emergency Department Summary Normal [facility] Modified Barium Swallow Stud yon 02-18-2024 Modified Barium Swallow Study Normal [facility] Absolute neutrophil countOrd ered By: Zebulun Beam on 02-16-2024 Absolute neutrophil count 4.5 X10^3/uL 2.0-7.7 [facility] Basophil percentageOrdered B y: Zebulun Beam on 02-16-2024 Basophil percentage 0.7 % 0-1 [facility] CBC W/Diff, Automatedon 01-30 Absolute Lymph 1.58 X10 3/uL Normal 0.83-4.51 [facility] Comment on above: Order Comment: PER P T-ONLY THIS ORDER TODAY Performed By: #### L 100.0100 ####[facility] [address] [place], [address] Absolute Neut 4.5 X10 3/uL Normal 2.0-7.7 [facility] Comment on above: Order Comment: PER P T-ONLY THIS ORDER TODAY Performed By: #### L 100.0100 ####[facility] [address] [place], [address] Basophils/100 WBC (Bld) 0.7 % Normal 0-1 [facility] Comment on above: Order Comment: PER P T-ONLY THIS ORDER TODAY Performed By: #### L 100.0100 ####[facility] [address] [place], [address] Eosinophils/100 WBC (Bld) 2.1 % Normal 0-5 [facility] Comment on above: Order Comment: PER P T-ONLY THIS ORDER TODAY Performed By: #### L 100.0100 ####[facility] [address] [place], [address] Erythrocyte distribution width (RBC) [Ratio] 14.1 % Normal 11.6-14.6 [facility] Comment on above: Order Comment: PER P T-ONLY THIS ORDER TODAY Performed By: #### L 100.0100 ####[facility] [address] [place], [address] Hematocrit (Bld) [Volume fraction] 36.7 % Low 37-47 [facility] Comment on above: Order Comment: PER P T-ONLY THIS ORDER TODAY Performed By: #### L 100.0100 ####[facility] [address] [place], [address] Hemoglobin (Bld) [Mass/Vol] 11.9 g/dL Low 12.0-15.0 [facility] Comment on above: Order Comment: PER P T-ONLY THIS ORDER TODAY Performed By: #### L 100.0100 ####[facility] [address] [place], [address] IG% 0.400 Normal 0.0-0.9 [facility] Comment on above: Order Comment: PER P T-ONLY THIS ORDER TODAY Result Comment: IG% - Immature Granulocytes (promyelocytes, myelocytes andmetamyelocytes) > 1% indicates that a LEFT SHIFT is Present. Performed By: #### L 100.0100 ####[facility] [address] [place], [address] Lymphocytes/100 WBC (Bld) 23.2 % Normal 19-41 [facility] Comment on above: Order Comment: PER P T-ONLY THIS ORDER TODAY Performed By: #### L 100.0100 ####[facility] [address] [place], [address] MCH (RBC) [Entitic mass] 27.6 pg Normal 27.0-32.0 [facility] Comment on above: Order Comment: PER P T-ONLY THIS ORDER TODAY Performed By: #### L 100.0100 ####[facility] [address] [place], [address] MCHC (RBC) [Mass/Vol] 32.4 g/dL Normal 32-36 [facility] Comment on above: Order Comment: PER P T-ONLY THIS ORDER TODAY Performed By: #### L 100.0100 ####[facility] [address] [place], [address] MCV (RBC) [Entitic vol] 85.2 fL Normal 81-99 [facility] Comment on above: Order Comment: PER P T-ONLY THIS ORDER TODAY Performed By: #### L 100.0100 ####[facility] [address] [place], [address] Monocytes/100 WBC (Bld) 7.3 % Normal 0-10 [facility] Comment on above: Order Comment: PER P T-ONLY THIS ORDER TODAY Performed By: #### L 100.0100 ####[facility] [address] [place], [address] Neutrophils/100 WBC (Bld) 66.3 % Normal 47-70 [facility] Comment on above: Order Comment: PER P T-ONLY THIS ORDER TODAY Performed By: #### L 100.0100 ####[facility] [address] [place], [address] Nucleated RBC (Bld) [#/Vol] 0 10*3/uL Normal 0-5 [facility] Comment on above: Order Comment: PER P T-ONLY THIS ORDER TODAY Performed By: #### L 100.0100 ####[facility] [address] [place], [address] Platelet mean volume (Bld) [Entitic vol] 10.5 fL Normal 6.2-12.0 [facility] Comment on above: Order Comment: PER P T-ONLY THIS ORDER TODAY Performed By: #### L 100.0100 ####[facility] [address] [place], [address] Platelets (Bld) [#/Vol] 351 10*3/uL Normal 150-450 [facility] Comment on above: Order Comment: PER P T-ONLY THIS ORDER TODAY Performed By: #### L 100.0100 ####[facility] [address] [place], [address] RBC (Bld) [#/Vol] 4.31 10*6/uL Normal 4.2-5.4 [facility] Comment on above: Order Comment: PER P T-ONLY THIS ORDER TODAY Performed By: #### L 100.0100 ####[facility] [address] [place], [address] RDW SD 43.8 fl Normal 35.1-43.9 [facility] Comment on above: Order Comment: PER P T-ONLY THIS ORDER TODAY Performed By: #### L 100.0100 ####[facility] [address] [place], [address] WBC (Bld) [#/Vol] 6.8 10*3/uL Normal 4.4-11.0 [facility] Comment on above: Order Comment: PER P T-ONLY THIS ORDER TODAY Performed By: #### L 100.0100 ####[facility] [address] [place], [address] Eosinophil percentageOrdered By: [facility] on 02-16-2024 Eosinophil percentage 2.1 % 0-5 [facility] Erythrocyte distribution wid th (RBC) [Entitic vol]Ordered By: [facility] on 02-16-2024 Erythrocyte distribution width standard deviation 43.8 fl 35.1-43.9 [facility] Erythrocyte distribution wid th (RBC) [Ratio]Ordered By: [facility] on 02-16-2024 Erythrocyte distribution width ratio 14.1 % 11.6-14.6 [facility] Hematocrit Auto (Bld) [Volum e fraction]Ordered By: [facility] on 02-16-2024 Automated blood hematocrit (percentage) 36.7 % Low 37-47 [facility] Hemoglobin measurementOrdere d By: [facility] on 02-16-2024 Hemoglobin measurement 11.9 g/dL Low 12.0-15.0 [facility] Immature granulocytes/100 WB C Auto (Bld)Ordered By: [facility] on 02-16-2024 Automated immature granulocyte percentage 0.400 % 0.0-0.9 [facility] Lymphocytes Auto (Unsp spec) [#/Vol]Ordered By: [facility] on 02-16-2024 Absolute lymphocyte count 1.58 X10^3/uL 0.83-4. 51 [facility] Lymphocytes/100 WBC Auto (Un sp spec)Ordered By: [facility] on 02-16-2024 Automated lymphocyte count as percentage of total leukocytes 23.2 % 19-41 [facility] MCV (RBC) [Entitic vol]Order ed By: [facility] on 02-16-2024 MCV (mean corpuscular volume) determination 85.2 fL 81-99 [facility] Mean corpuscular hemoglobin (MCH) determinationOrdered By: carmelosybil [facility] on 02-16-2024 Mean corpuscular hemoglobin (MCH) determination 27.6 pg 27.0-32.0 [facility] Mean corpuscular hemoglobin concentration (MCHC) determinationOrdered By: Zebulun Beam on 02-16-2024 Mean corpuscular hemoglobin concentration (MCHC) determination 32.4 g/dL 32-36 [facility] Mean platelet volume determi nationOrdered By: Zebulun Beam on 02-16-2024 Mean platelet volume determination 10.5 fl 6.2-12.0 [facility] Monocyte percentageOrdered B y: Zebulun Beam on 02-16-2024 Monocyte percentage 7.3 % 0-10 [facility] Neutrophil percentageOrdered By: Zebulun Beam on 02-16-2024 Neutrophil percentage 66.3 % 47-70 [facility] Nucleated red blood cell per centageOrdered By: Zebulun Beam on 02-16-2024 Nucleated red blood cell percentage 0 % 0-5 [facility] Platelet countOrdered By: Ze bulun Beam on 02-16-2024 Platelet count 351 K/mm3 150-450 [facility] RBC Auto (Bld) [#/Vol]Ordere d By: Zebulun Beam on 02-16-2024 Automated blood erythrocyte count 4.31 M/mm3 4.2-5.4 [facility] White blood cell (WBC) count Ordered By: Famlun Beam on 02-16-2024 White blood cell (WBC) count 6.8 K/mm3 4.4-11.0 [facility] Absolute neutrophil countOrd ered By: Omar Betancourt on 02-10-2024 Absolute neutrophil count 9.3 X10^3/uL High 2.0-7.7 [facility] Basic Metabolic Profile (BMP )on 02-10-2024 BUN/CRE 36.8 RATIO High 10-20 [facility] Comment on above: Performed By: #### L 100.0100, L500.2500 ####[facility] [address] [place], [address] CA,Total 9.9 mg/dL Normal 8.5-10.1 [facility] Comment on above: Performed By: #### L 100.0100, L500.2500 ####[facility] [address] [place], [address] Chloride [Moles/Vol] 109 mmol/L High 98-107 [facility] Comment on above: Performed By: #### L 100.0100, L500.2500 ####[facility] [address] [place], [address] CO2 [Moles/Vol] 26.0 mmol/L Normal 21.0-32.0 [facility] Comment on above: Performed By: #### L 100.0100, L500.2500 ####[facility] [address] [place], [address] Creatinine [Mass/Vol] 0.60 mg/dL Normal 0.55-1.02 [facility] Comment on above: Result Comment: The validity of the calculated GFR GFRAA in patients over70 years has not been determined. Clinical correlation isessential. Performed By: #### L 100.0100, L500.2500 ####[facility] [address] [place], [address] ECRCL 149.44 ml/min Normal [facility] Comment on above: Performed By: #### L 100.0100, L500.2500 ####[facility] [address] [place], [address] EST GFR - AA 139 mL/min Normal >60 [facility] Comment on above: Result Comment: Afri can Mozamb[place] GFR Calc Performed By: #### L 100.0100, L500.2500 ####[facility] [address] [place], [address] GAP 6 Normal 5-15 [facility] Comment on above: Performed By: #### L 100.0100, L500.2500 ####[facility] [address] [place], [address] GFR/1.73 sq M.predicted among non-blacks MDRD (S/P/Bld) [Vol rate/Area] 114 mL/min/{1.73_m2} Normal >60 [facility] Comment on above: Result Comment: Non- GFR Calc Performed By: #### L 100.0100, L500.2500 ####[facility] [address] [place], [address] Glucose [Mass/Vol] 95 mg/dL Normal 74-106 [facility] Comment on above: Performed By: #### L 100.0100, L500.2500 ####[facility] [address] [place], [address] Potassium [Moles/Vol] 3.3 mmol/L Low 3.5-5.1 [facility] Comment on above: Performed By: #### L 100.0100, L500.2500 ####[facility] [address] [place], [address] Sodium [Moles/Vol] 141 mmol/L Normal 136-145 [facility] Comment on above: Performed By: #### L 100.0100, L500.2500 ####[facility] [address] [place], [address] Urea nitrogen [Mass/Vol] 22 mg/dL High 7-18 [facility] Comment on above: Performed By: #### L 100.0100, L500.2500 ####[facility] [address] [place], [address] Basophil percentageOrdered B y: Omar Betancourt on 02-10-2024 Basophil percentage 0.2 % 0-1 [facility] Blood urea nitrogen (BUN)/cr eatinine ratioOrdered By: Omar Betancourt on 02-10-2024 Blood urea nitrogen (BUN)/creatinine ratio 36.8 RATIO High 10-20 [facility] CBC W/Diff, Automatedon 12- Absolute Lymph 1.73 X10 3/uL Normal 0.83-4.51 [facility] Comment on above: Performed By: #### L 100.0100, L500.2500 ####[facility] [address] [place], [address] Absolute Neut 9.3 X10 3/uL High 2.0-7.7 [facility] Comment on above: Performed By: #### L 100.0100, L500.2500 ####[facility] [address] [place], [address] Basophils/100 WBC (Bld) 0.2 % Normal 0-1 [facility] Comment on above: Performed By: #### L 100.0100, L500.2500 ####[facility] [address] [place], [address] Eosinophils/100 WBC (Bld) 0.4 % Normal 0-5 [facility] Comment on above: Performed By: #### L 100.0100, L500.2500 ####[facility] [address] [place], [address] Erythrocyte distribution width (RBC) [Ratio] 14.1 % Normal 11.6-14.6 [facility] Comment on above: Performed By: #### L 100.0100, L500.2500 ####[facility] [address] [place], [address] Hematocrit (Bld) [Volume fraction] 36.8 % Low 37-47 [facility] Comment on above: Performed By: #### L 100.0100, L500.2500 ####[facility] [address] [place], [address] Hemoglobin (Bld) [Mass/Vol] 11.7 g/dL Low 12.0-15.0 [facility] Comment on above: Performed By: #### L 100.0100, L500.2500 ####[facility] [address] [place], [address] IG% 0.600 Normal 0.0-0.9 [facility] Comment on above: Result Comment: IG% - Immature Granulocytes (promyelocytes, myelocytes andmetamyelocytes) > 1% indicates that a LEFT SHIFT is Present. Performed By: #### L 100.0100, L500.2500 ####[facility] [address] [place], [address] Lymphocytes/100 WBC (Bld) 14.8 % Low 19-41 [facility] Comment on above: Performed By: #### L 100.0100, L500.2500 ####[facility] [address] [place], [address] MCH (RBC) [Entitic mass] 27.3 pg Normal 27.0-32.0 [facility] Comment on above: Performed By: #### L 100.0100, L500.2500 ####[facility] [address] [place], [address] MCHC (RBC) [Mass/Vol] 31.8 g/dL Low 32-36 [facility] Comment on above: Performed By: #### L 100.0100, L500.2500 ####[facility] [address] [place], [address] MCV (RBC) [Entitic vol] 85.8 fL Normal 81-99 [facility] Comment on above: Performed By: #### L 100.0100, L500.2500 ####[facility] [address] [place], [address] Monocytes/100 WBC (Bld) 4.8 % Normal 0-10 [facility] Comment on above: Performed By: #### L 100.0100, L500.2500 ####[facility] [address] [place], [address] Neutrophils/100 WBC (Bld) 79.2 % High 47-70 [facility] Comment on above: Performed By: #### L 100.0100, L500.2500 ####[facility] [address] [place], [address] Nucleated RBC (Bld) [#/Vol] 0 10*3/uL Normal 0-5 [facility] Comment on above: Performed By: #### L 100.0100, L500.2500 ####[facility] [address] [place], [address] Platelet mean volume (Bld) [Entitic vol] 10.1 fL Normal 6.2-12.0 [facility] Comment on above: Performed By: #### L 100.0100, L500.2500 ####[facility] [address] [place], [address] Platelets (Bld) [#/Vol] 283 10*3/uL Normal 150-450 [facility] Comment on above: Performed By: #### L 100.0100, L500.2500 ####[facility] [address] [place], [address] RBC (Bld) [#/Vol] 4.29 10*6/uL Normal 4.2-5.4 [facility] Comment on above: Performed By: #### L 100.0100, L500.2500 ####[facility] [address] [place], [address] RDW SD 43.7 fl Normal 35.1-43.9 [facility] Comment on above: Performed By: #### L 100.0100, L500.2500 ####[facility] [address] [place], [address] WBC (Bld) [#/Vol] 11.7 10*3/uL High 4.4-11.0 [facility] Comment on above: Performed By: #### L 100.0100, L500.2500 ####[facility] [address] [place], [address] Calcium [Mass/Vol]Ordered By : Omar Betancourt on 02-10-2024 Serum or plasma calcium measurement (mass/volume) 9.9 mg/dL 8.5-10.1 [facility] Carbon dioxide measurementOr dered By: Omar Betancourt on 02-10-2024 Carbon dioxide measurement 26.0 mmol/L 21.0-32. 0 [facility] Chloride measurementOrdered By: Omar Betancourt on 02-10-2024 Chloride measurement 109 mmol/L High 98-107 [facility] Creatinine [Mass/Vol]Ordered By: Omar Betancourt on 02-10-2024 Serum or plasma creatinine measurement (mass/volume) 0.60 mg/dL 0.55-1.02 [facility] Discharge Instructionon 01-30 Discharge Instruction Normal [facility] Eosinophil percentageOrdered By: Omar Betancourt on 02-10-2024 Eosinophil percentage 0.4 % 0-5 [facility] Erythrocyte distribution wid th (RBC) [Entitic vol]Ordered By: Omar Betancourt on 02-10-2024 Erythrocyte distribution width standard deviation 43.7 fl 35.1-43.9 [facility] Erythrocyte distribution wid th (RBC) [Ratio]Ordered By: Omar Betancourt on 02-10-2024 Erythrocyte distribution width ratio 14.1 % 11.6-14.6 [facility] Estimated glomerular filtrat ion rate (GFR) AmericanOrdered By: Omar Betancourt on 02-10-2024 Estimated glomerular filtration rate (GFR) 139 mL/min >60 [facility] Estimation of creatinine orin aranceOrdered By: Omar Betancourt on 02-10-2024 Estimation of creatinine clearance 149.44 ml/min [facility] Glomerular filtration rate ( GFR) estimationOrdered By: Omar Betancourt on 02-10-2024 Glomerular filtration rate (GFR) estimation 114 mL/min >60 [facility] Glucose measurementOrdered B y: Omar Betancourt on 02-10-2024 Glucose measurement 95 mg/dL 74-106 [facility] Hematocrit Auto (Bld) [Volum e fraction]Ordered By: Omar Betancourt on 02-10-2024 Automated blood hematocrit (percentage) 36.8 % Low 37-47 [facility] Hemoglobin measurementOrdere d By: Omar Betancourt on 02-10-2024 Hemoglobin measurement 11.7 g/dL Low 12.0-15.0 [facility] Immature granulocytes/100 WB C Auto (Bld)Ordered By: Omar Betancourt on 02-10-2024 Automated immature granulocyte percentage 0.600 % 0.0-0.9 [facility] Lymphocytes Auto (Unsp spec) [#/Vol]Ordered By: Omar Betancourt on 02-10-2024 Absolute lymphocyte count 1.73 X10^3/uL 0.83-4. 51 [facility] Lymphocytes/100 WBC Auto (Un sp spec)Ordered By: Omar Betancourt on 02-10-2024 Automated lymphocyte count as percentage of total leukocytes 14.8 % Low 19-41 [facility] MCV (RBC) [Entitic vol]Order ed By: Omar Betancourt on 02-10-2024 MCV (mean corpuscular volume) determination 85.8 fL 81-99 [facility] Magnesiumon 02-10-2024 Magnesium [Mass/Vol] 2.0 mg/dL Normal 1.6-2.6 [facility] Comment on above: Performed By: #### L 501.5200, L501.2300 ####[facility] [address] [place], [place], [id number] Magnesium measurementOrdered By: Omar Betancourt on 02-10-2024 Magnesium measurement 2.0 mg/dL 1.6-2.6 [facility] Mean corpuscular hemoglobin (MCH) determinationOrdered By: Omar Betancourt on 02-10-2024 Mean corpuscular hemoglobin (MCH) determination 27.3 pg 27.0-32.0 [facility] Mean corpuscular hemoglobin concentration (MCHC) determinationOrdered By: Omar Betancourt on 02-10-2024 Mean corpuscular hemoglobin concentration (MCHC) determination 31.8 g/dL Low 32-36 [facility] Mean platelet volume determi nationOrdered By: Omar Betancourt on 02-10-2024 Mean platelet volume determination 10.1 fl 6.2-12.0 [facility] Monocyte percentageOrdered B y: Omar Betancourt on 02-10-2024 Monocyte percentage 4.8 % 0-10 [facility] Neutrophil percentageOrdered By: Omar Betancourt on 02-10-2024 Neutrophil percentage 79.2 % High 47-70 [facility] Nucleated red blood cell per centageOrdered By: Omar Betancourt on 02-10-2024 Nucleated red blood cell percentage 0 % 0-5 [facility] Phosphoruson 02-10-2024 Phosphate [Mass/Vol] 2.7 mg/dL Normal 2.5-4.9 [facility] Comment on above: Performed By: #### L 501.5200, L501.2300 ####[facility] [facility] [address] [place], [address] Phosphorus measurementOrdere d By: Omar Betancourt on 02-10-2024 Phosphorus measurement 2.7 mg/dL 2.5-4.9 [facility] Platelet countOrdered By: Moira Betancourt on 02-10-2024 Platelet count 283 K/mm3 150-450 [facility] Potassium measurementOrdered By: Omar Betancourt on 02-10-2024 Potassium measurement 3.3 mmol/L Low 3.5-5.1 [facility] RBC Auto (Bld) [#/Vol]Ordere d By: Omar Betancourt on 02-10-2024 Automated blood erythrocyte count 4.29 M/mm3 4.2-5.4 [facility] SP/SP.FEESon 02-10-2024 SP/SP.FEES Normal [facility] Serum anion gap measurementO rdered By: Omar Betancourt on 02-10-2024 Serum anion gap measurement 6 5-15 [facility] Sodium levelOrdered By: Sathya Betancourt on 02-10-2024 Sodium level 141 mmol/L 136-145 [facility] Urea nitrogen [Mass/Vol]Orde red By: Omar Betancourt on 02-10-2024 Serum or plasma urea nitrogen measurement (mass/volume) 22 mg/dL High 7-18 [facility] White blood cell (WBC) count Ordered By: Omar Betancourt on 02-10-2024 White blood cell (WBC) count 11.7 K/mm3 High 4.4-11.0 [facility] Abdomen Single View (Portabl e)on 02-09-2024 Abdomen Single View (Portable) Normal [facility] Basic Metabolic Profile (BMP )on 02-09-2024 BUN/CRE 33.9 RATIO High 10-20 [facility] Comment on above: Performed By: #### L 100.0100, L500.2500 ####[facility] [address] [place], [address] CA,Total 10.5 mg/dL High 8.5-10.1 [facility] Comment on above: Performed By: #### L 100.0100, L500.2500 ####[facility] [address] [place], [address] Chloride [Moles/Vol] 110 mmol/L High 98-107 [facility] Comment on above: Performed By: #### L 100.0100, L500.2500 ####[facility] [address] [place], [address] CO2 [Moles/Vol] 22.0 mmol/L Normal 21.0-32.0 [facility] Comment on above: Performed By: #### L 100.0100, L500.2500 ####[facility] [address] [place], [address] Creatinine [Mass/Vol] 0.62 mg/dL Normal 0.55-1.02 [facility] Comment on above: Result Comment: The validity of the calculated GFR GFRAA in patients over70 years has not been determined. Clinical correlation isessential. Performed By: #### L 100.0100, L500.2500 ####[facility] [address] [place], [address] ECRCL 144.62 ml/min Normal [facility] Comment on above: Performed By: #### L 100.0100, L500.2500 ####[facility] [address] [place], [address] EST GFR - AA 133 mL/min Normal >60 [facility] Comment on above: Result Comment: Afri can Mozambican GFR Calc Performed By: #### L 100.0100, L500.2500 ####[facility] [address] [place], [address] GAP 8 Normal 5-15 [facility] Comment on above: Performed By: #### L 100.0100, L500.2500 ####[facility] [address] [place], [address] GFR/1.73 sq M.predicted among non-blacks MDRD (S/P/Bld) [Vol rate/Area] 110 mL/min/{1.73_m2} Normal >60 [facility] Comment on above: Result Comment: Non- GFR Calc Performed By: #### L 100.0100, L500.2500 ####[facility] [address] [place], [address] Glucose [Mass/Vol] 80 mg/dL Normal 74-106 [facility] Comment on above: Performed By: #### L 100.0100, L500.2500 ####[facility] [address] [place], [address] Potassium [Moles/Vol] 3.8 mmol/L Normal 3.5-5.1 [facility] Comment on above: Performed By: #### L 100.0100, L500.2500 ####[facility] [address] [place], [address] Sodium [Moles/Vol] 140 mmol/L Normal 136-145 [facility] Comment on above: Performed By: #### L 100.0100, L500.2500 ####[facility] [address] [place], [address] Urea nitrogen [Mass/Vol] 21 mg/dL High 7-18 [facility] Comment on above: Performed By: #### L 100.0100, L500.2500 ####[facility] [address] [place], [address] CBC W/Diff, Automatedon 12-1 0-2024 Absolute Lymph 2.69 X10 3/uL Normal 0.83-4.51 [facility] Comment on above: Performed By: #### L 100.0100, L500.2500 ####[facility] [address] [place], [address] Absolute Neut 8.0 X10 3/uL High 2.0-7.7 [facility] Comment on above: Performed By: #### L 100.0100, L500.2500 ####[facility] [address] [place], [address] Basophils/100 WBC (Bld) 0.3 % Normal 0-1 [facility] Comment on above: Performed By: #### L 100.0100, L500.2500 ####[facility] [address] [place], [address] Eosinophils/100 WBC (Bld) 0.2 % Normal 0-5 [facility] Comment on above: Performed By: #### L 100.0100, L500.2500 ####[facility] [address] [place], [address] Erythrocyte distribution width (RBC) [Ratio] 13.7 % Normal 11.6-14.6 [facility] Comment on above: Performed By: #### L 100.0100, L500.2500 ####[facility] [address] [place], [address] Hematocrit (Bld) [Volume fraction] 39.3 % Normal 37-47 [facility] Comment on above: Performed By: #### L 100.0100, L500.2500 ####[facility] [address] [place], [address] Hemoglobin (Bld) [Mass/Vol] 13.4 g/dL Normal 12.0-15.0 [facility] Comment on above: Performed By: #### L 100.0100, L500.2500 ####[facility] [address] [place], [address] IG% 0.600 Normal 0.0-0.9 [facility] Comment on above: Result Comment: IG% - Immature Granulocytes (promyelocytes, myelocytes andmetamyelocytes) > 1% indicates that a LEFT SHIFT is Present. Performed By: #### L 100.0100, L500.2500 ####[facility] [address] [place], [address] Lymphocytes/100 WBC (Bld) 23.3 % Normal 19-41 [facility] Comment on above: Performed By: #### L 100.0100, L500.2500 ####[facility] [address] [place], [address] MCH (RBC) [Entitic mass] 29.3 pg Normal 27.0-32.0 [facility] Comment on above: Performed By: #### L 100.0100, L500.2500 ####[facility] [address] [place], [address] MCHC (RBC) [Mass/Vol] 34.1 g/dL Normal 32-36 [facility] Comment on above: Performed By: #### L 100.0100, L500.2500 ####[facility] [address] [place], [address] MCV (RBC) [Entitic vol] 86.0 fL Normal 81-99 [facility] Comment on above: Performed By: #### L 100.0100, L500.2500 ####[facility] [address] [place], [address] Monocytes/100 WBC (Bld) 5.8 % Normal 0-10 [facility] Comment on above: Performed By: #### L 100.0100, L500.2500 ####[facility] [address] [place], [address] Neutrophils/100 WBC (Bld) 69.8 % Normal 47-70 [facility] Comment on above: Performed By: #### L 100.0100, L500.2500 ####[facility] [address] [place], [address] Nucleated RBC (Bld) [#/Vol] 0 10*3/uL Normal 0-5 [facility] Comment on above: Performed By: #### L 100.0100, L500.2500 ####[facility] [address] [place], [address] Platelet mean volume (Bld) [Entitic vol] 9.9 fL Normal 6.2-12.0 [facility] Comment on above: Performed By: #### L 100.0100, L500.2500 ####[facility] [address] [place], [address] Platelets (Bld) [#/Vol] 372 10*3/uL Normal 150-450 [facility] Comment on above: Performed By: #### L 100.0100, L500.2500 ####[facility] [address] [place], [address] RBC (Bld) [#/Vol] 4.57 10*6/uL Normal 4.2-5.4 [facility] Comment on above: Performed By: #### L 100.0100, L500.2500 ####[facility] [address] [place], [address] RDW SD 42.6 fl Normal 35.1-43.9 [facility] Comment on above: Performed By: #### L 100.0100, L500.2500 ####[facility] [address] [place], [address] WBC (Bld) [#/Vol] 11.5 10*3/uL High 4.4-11.0 [facility] Comment on above: Performed By: #### L 100.0100, L500.2500 ####[facility] [address] [place], [address] Respiratory Cultureon 2023 RESPC Mixed normal respiratory manolo. No Haemophilus, Streptococcus pneumoniae, beta-hemolytic Streptococcus or Staphylococcus aureus isolated. Microorganism Spec Cult Normal [facility] Comment on above: Performed By: #### M 100.2400, M100.2000 ####[facility] [address] [place], [address] Abdomen Single View (Portabl e)on 02-08-2024 Abdomen Single View (Portable) Normal [facility] Basic Metabolic Profile (BMP )on 02-08-2024 BUN/CRE 30.3 RATIO High 10-20 [facility] Comment on above: Performed By: #### L 500.2500 ####[facility] [address] [place], [address] CA,Total 9.6 mg/dL Normal 8.5-10.1 [facility] Comment on above: Performed By: #### L 500.2500 ####[facility] [address] [place], [address] Chloride [Moles/Vol] 110 mmol/L High 98-107 [facility] Comment on above: Performed By: #### L 500.2500 ####[facility] [address] [place] [address] CO2 [Moles/Vol] 25.0 mmol/L Normal 21.0-32.0 [facility] Comment on above: Performed By: #### L 500.2500 ####[facility] [address] [place] [address] Creatinine [Mass/Vol] 0.63 mg/dL Normal 0.55-1.02 [facility] Comment on above: Result Comment: The validity of the calculated GFR GFRAA in patients over70 years has not been determined. Clinical correlation isessential. Performed By: #### L 500.2500 ####[facility] [address] [place] [address] ECRCL 140.64 ml/min Normal [facility] Comment on above: Performed By: #### L 500.2500 ####[facility] [address] [place], [address] EST GFR - AA 131 mL/min Normal >60 [facility] Comment on above: Result Comment: Afri can Moz[place] GFR Calc Performed By: #### L 500.2500 ####[facility] [address] [place] [address] GAP 8 Normal 5-15 [facility] Comment on above: Performed By: #### L 500.2500 ####[facility] [address] [place] [address] GFR/1.73 sq M.predicted among non-blacks MDRD (S/P/Bld) [Vol rate/Area] 108 mL/min/{1.73_m2} Normal >60 [facility] Comment on above: Result Comment: Non- GFR Calc Performed By: #### L 500.2500 ####[facility] [address] [place], [address] Glucose [Mass/Vol] 92 mg/dL Normal 74-106 [facility] Comment on above: Performed By: #### L 500.2500 ####[facility] [address] [place], [address] Potassium [Moles/Vol] 3.5 mmol/L Normal 3.5-5.1 [facility] Comment on above: Performed By: #### L 500.2500 ####[facility] [address] [place], [address] Sodium [Moles/Vol] 143 mmol/L Normal 136-145 [facility] Comment on above: Performed By: #### L 500.2500 ####[facility] [address] [place], [address] Urea nitrogen [Mass/Vol] 19 mg/dL High 7-18 [facility] Comment on above: Performed By: #### L 500.2500 ####[facility] [address] [place], [address] BUN Normal 7-18 [facility] Comment on above: Result Comment: Canc elled via OM: MD Ordered Performed By: #### L 100.0100, L500.2500 ####[facility] [address] [place], [address] BUN/CRE Normal 10-20 [facility] Comment on above: Result Comment: Canc elled via OM: MD Ordered Performed By: #### L 100.0100, L500.2500 ####[facility] [address] [place], [address] CA,Total Normal 8.5-10.1 [facility] Comment on above: Result Comment: Canc elled via OM: MD Ordered Performed By: #### L 100.0100, L500.2500 ####[facility] [address] [place], [address] CL Normal 98-107 [facility] Comment on above: Result Comment: Canc elled via OM: MD Ordered Performed By: #### L 100.0100, L500.2500 ####[facility] [address] [place], [address] CO2 Normal 21.0-32.0 [facility] Comment on above: Result Comment: Canc elled via OM: MD Ordered Performed By: #### L 100.0100, L500.2500 ####[facility] [address] [place], [address] CREAT,SERUM Normal 0.55-1.02 [facility] Comment on above: Result Comment: Canc elled via OM: MD Ordered Performed By: #### L 100.0100, L500.2500 ####[facility] [address] [place], [address] EST GFR Normal >60 [facility] Comment on above: Result Comment: Canc elled via OM: MD Ordered Performed By: #### L 100.0100, L500.2500 ####[facility] [address] [place], [address] EST GFR - AA Normal >60 [facility] Comment on above: Result Comment: Canc elled via OM: MD Ordered Performed By: #### L 100.0100, L500.2500 ####[facility] [address] [place], [address] GAP Normal 5-15 [facility] Comment on above: Result Comment: Canc elled via OM: MD Ordered Performed By: #### L 100.0100, L500.2500 ####[facility] [address] [place], [address] GLU Normal 74-106 [facility] Comment on above: Result Comment: Canc elled via OM: MD Ordered Performed By: #### L 100.0100, L500.2500 ####[facility] [address] [place], [address] Potassium Normal 3.5-5.1 [facility] Comment on above: Result Comment: Canc elled via OM: MD Ordered Performed By: #### L 100.0100, L500.2500 ####[facility] [address] [place], [address] Basic Metabolic Profile (BMP) Normal 136-145 [facility] Comment on above: Result Comment: Canc elled via OM: MD Ordered Performed By: #### L 100.0100, L500.2500 ####[facility] [address] [place], [address] CBC W/Diff, Automatedon 12-0 9-2023 Absolute Lymph 1.96 X10 3/uL Normal 0.83-4.51 [facility] Comment on above: Performed By: #### L 100.0100 ####[facility] [address] [place], [address] Absolute Neut 5.7 X10 3/uL Normal 2.0-7.7 [facility] Comment on above: Performed By: #### L 100.0100 ####[facility] [address] [place], [address] Basophils/100 WBC (Bld) 0.4 % Normal 0-1 [facility] Comment on above: Performed By: #### L 100.0100 ####[facility] [address] [place], [address] Eosinophils/100 WBC (Bld) 2.2 % Normal 0-5 [facility] Comment on above: Performed By: #### L 100.0100 ####[facility] [address] [place], [address] Erythrocyte distribution width (RBC) [Ratio] 13.7 % Normal 11.6-14.6 [facility] Comment on above: Performed By: #### L 100.0100 ####[facility] [address] [place], [address] Hematocrit (Bld) [Volume fraction] 37.0 % Normal 37-47 [facility] Comment on above: Performed By: #### L 100.0100 ####[facility] [address] [place], [address] Hemoglobin (Bld) [Mass/Vol] 12.0 g/dL Normal 12.0-15.0 [facility] Comment on above: Performed By: #### L 100.0100 ####[facility] [address] [place], [address] IG% 0.600 Normal 0.0-0.9 [facility] Comment on above: Result Comment: IG% - Immature Granulocytes (promyelocytes, myelocytes andmetamyelocytes) > 1% indicates that a LEFT SHIFT is Present. Performed By: #### L 100.0100 ####[facility] [address] [place], [address] Lymphocytes/100 WBC (Bld) 23.2 % Normal 19-41 [facility] Comment on above: Performed By: #### L 100.0100 ####[facility] [address] [place], [address] MCH (RBC) [Entitic mass] 27.8 pg Normal 27.0-32.0 [facility] Comment on above: Performed By: #### L 100.0100 ####[facility] [address] [place], [address] MCHC (RBC) [Mass/Vol] 32.4 g/dL Normal 32-36 [facility] Comment on above: Performed By: #### L 100.0100 ####[facility] [address] [place], [address] MCV (RBC) [Entitic vol] 85.8 fL Normal 81-99 [facility] Comment on above: Performed By: #### L 100.0100 ####[facility] [address] [place], [address] Monocytes/100 WBC (Bld) 6.6 % Normal 0-10 [facility] Comment on above: Performed By: #### L 100.0100 ####[facility] [address] [place], [address] Neutrophils/100 WBC (Bld) 67.0 % Normal 47-70 [facility] Comment on above: Performed By: #### L 100.0100 ####[facility] [address] [place], [address] Nucleated RBC (Bld) [#/Vol] 0 10*3/uL Normal 0-5 [facility] Comment on above: Performed By: #### L 100.0100 ####[facility] [address] [place], [address] Platelet mean volume (Bld) [Entitic vol] 9.5 fL Normal 6.2-12.0 [facility] Comment on above: Performed By: #### L 100.0100 ####[facility] [address] [place], [address] Platelets (Bld) [#/Vol] 277 10*3/uL Normal 150-450 [facility] Comment on above: Performed By: #### L 100.0100 ####[facility] [address] [place], [address] RBC (Bld) [#/Vol] 4.31 10*6/uL Normal 4.2-5.4 [facility] Comment on above: Performed By: #### L 100.0100 ####[facility] [address] [place], [address] RDW SD 42.9 fl Normal 35.1-43.9 [facility] Comment on above: Performed By: #### L 100.0100 ####[facility] [address] [place], [address] WBC (Bld) [#/Vol] 8.5 10*3/uL Normal 4.4-11.0 [facility] Comment on above: Performed By: #### L 100.0100 ####[facility] [address] [place], [address] Absolute Neut Normal 2.0-7.7 [facility] Comment on above: Result Comment: Canc elled via OM: MD Ordered Performed By: #### L 100.0100, L500.2500 ####[facility] [address] [place], [address] HCT Normal 37-47 [facility] Comment on above: Result Comment: Canc elled via OM: MD Ordered Performed By: #### L 100.0100, L500.2500 ####[facility] [address] [place], [address] HGB Normal 12.0-15.0 [facility] Comment on above: Result Comment: Canc elled via OM: MD Ordered Performed By: #### L 100.0100, L500.2500 ####[facility] [address] [place], [address] MCH Normal 27.0-32.0 [facility] Comment on above: Result Comment: Canc elled via OM: MD Ordered Performed By: #### L 100.0100, L500.2500 ####[facility] [address] [place], [address] MCHC Normal 32-36 [facility] Comment on above: Result Comment: Canc elled via OM: MD Ordered Performed By: #### L 100.0100, L500.2500 ####[facility] [address] [place], [address] MCV Normal 81-99 [facility] Comment on above: Result Comment: Canc elled via OM: MD Ordered Performed By: #### L 100.0100, L500.2500 ####[facility] [address] [place], [address] NEUT% Normal 47-70 [facility] Comment on above: Result Comment: Canc elled via OM: MD Ordered Performed By: #### L 100.0100, L500.2500 ####[facility] [address] [place], [address] PLT Normal 150-450 [facility] Comment on above: Result Comment: Canc elled via OM: MD Ordered Performed By: #### L 100.0100, L500.2500 ####[facility] [address] [place], [address] RBC Normal 4.2-5.4 [facility] Comment on above: Result Comment: Canc elled via OM: MD Ordered Performed By: #### L 100.0100, L500.2500 ####[facility] [address] [place], [address] RDW CV Normal 11.6-14.6 [facility] Comment on above: Result Comment: Canc elled via OM: MD Ordered Performed By: #### L 100.0100, L500.2500 ####[facility] [address] [place], [address] RDW SD Normal 35.1-43.9 [facility] Comment on above: Result Comment: Canc elled via OM: MD Ordered Performed By: #### L 100.0100, L500.2500 ####[facility] [address] [place], [address] WBC Normal 4.4-11.0 [facility] Comment on above: Result Comment: Jesenia rivera via OM: Ordered Performed By: #### L 100.0100, L500.2500 ####[facility] [address] [place], [address] EGD Reporton 02-08-2024 EGD Report Normal [facility] International normalized rat io (INR) calculationOrdered By: Sunny Esteban on 02-08-2024 International normalized ratio (INR) calculation 1.1 [facility] MR/POSTOP.ANEon 02-08-2024 MR/POSTOP.ANE Normal [facility] MR/[id number] 02-08-2024 MR/POSTOPAN2 Normal [facility] Prothrombin Time w/INRon INR Coag (PPP) [Relative time] 1.1 {INR} Normal [facility] Comment on above: Performed By: #### L 300.3900 ####[facility] [address] [place], [address] PT Coag (PPP) [Time] 14.6 s Normal 11.7-14.9 [facility] Comment on above: Performed By: #### L 300.3900 ####[facility] [address] [place], [address] Prothrombin timeOrdered By: Sunny Esteban on 02-08-2024 Prothrombin time 14.6 SECONDS 11.7-14.9 [facility] Basic Metabolic Profile (BMP )on 02-07-2024 BUN/CRE 27.7 RATIO High 10-20 [facility] Comment on above: Performed By: #### L 100.0100, L500.2500 ####[facility] [address] [place], [address] CA,Total 9.2 mg/dL Normal 8.5-10.1 [facility] Comment on above: Performed By: #### L 100.0100, L500.2500 ####[facility] [address] [place], [address] Chloride [Moles/Vol] 107 mmol/L Normal 98-107 [facility] Comment on above: Performed By: #### L 100.0100, L500.2500 ####[facility] [address] [place], [address] CO2 [Moles/Vol] 27.0 mmol/L Normal 21.0-32.0 [facility] Comment on above: Performed By: #### L 100.0100, L500.2500 ####[facility] [address] [place], [address] Creatinine [Mass/Vol] 0.58 mg/dL Normal 0.55-1.02 [facility] Comment on above: Result Comment: The validity of the calculated GFR GFRAA in patients over70 years has not been determined. Clinical correlation isessential. Performed By: #### L 100.0100, L500.2500 ####[facility] [address] [place], [address] ECRCL 161.79 ml/min Normal [facility] Comment on above: Performed By: #### L 100.0100, L500.2500 ####[facility] [address] [place], [address] EST GFR - AA 144 mL/min Normal >60 [facility] Comment on above: Result Comment: Afri can Mozambican GFR Calc Performed By: #### L 100.0100, L500.2500 ####[facility] [address] [place], [address] GAP 7 Normal 5-15 [facility] Comment on above: Performed By: #### L 100.0100, L500.2500 ####[facility] [address] [place], [address] GFR/1.73 sq M.predicted among non-blacks MDRD (S/P/Bld) [Vol rate/Area] 119 mL/min/{1.73_m2} Normal >60 [facility] Comment on above: Result Comment: Non- GFR Calc Performed By: #### L 100.0100, L500.2500 ####[facility] [address] [place], [address] Glucose [Mass/Vol] 86 mg/dL Normal 74-106 [facility] Comment on above: Performed By: #### L 100.0100, L500.2500 ####[facility] [address] [place], [address] Potassium [Moles/Vol] 3.6 mmol/L Normal 3.5-5.1 [facility] Comment on above: Performed By: #### L 100.0100, L500.2500 ####[facility] [address] [place], [address] Sodium [Moles/Vol] 141 mmol/L Normal 136-145 [facility] Comment on above: Performed By: #### L 100.0100, L500.2500 ####[facility] [address] [place], [address] Urea nitrogen [Mass/Vol] 16 mg/dL Normal 7-18 [facility] Comment on above: Performed By: #### L 100.0100, L500.2500 ####[facility] [address] [place], [address] CBC W/Diff, Automatedon 12-0 8-2023 Absolute Lymph 1.97 X10 3/uL Normal 0.83-4.51 [facility] Comment on above: Performed By: #### L 100.0100, L500.2500 ####[facility] [address] [place], [address] Absolute Neut 6.2 X10 3/uL Normal 2.0-7.7 [facility] Comment on above: Performed By: #### L 100.0100, L500.2500 ####[facility] [address] [place], [address] Basophils/100 WBC (Bld) 0.2 % Normal 0-1 [facility] Comment on above: Performed By: #### L 100.0100, L500.2500 ####[facility] [address] [place], [address] Eosinophils/100 WBC (Bld) 2.1 % Normal 0-5 [facility] Comment on above: Performed By: #### L 100.0100, L500.2500 ####[facility] [address] [place], [address] Erythrocyte distribution width (RBC) [Ratio] 13.7 % Normal 11.6-14.6 [facility] Comment on above: Performed By: #### L 100.0100, L500.2500 ####[facility] [address] [place], [address] Hematocrit (Bld) [Volume fraction] 39.1 % Normal 37-47 [facility] Comment on above: Performed By: #### L 100.0100, L500.2500 ####[facility] [address] [place], [address] Hemoglobin (Bld) [Mass/Vol] 12.6 g/dL Normal 12.0-15.0 [facility] Comment on above: Performed By: #### L 100.0100, L500.2500 ####[facility] [address] [place], [address] IG% 0.400 Normal 0.0-0.9 [facility] Comment on above: Result Comment: IG% - Immature Granulocytes (promyelocytes, myelocytes andmetamyelocytes) > 1% indicates that a LEFT SHIFT is Present. Performed By: #### L 100.0100, L500.2500 ####[facility] [address] [place], [address] Lymphocytes/100 WBC (Bld) 21.8 % Normal 19-41 [facility] Comment on above: Performed By: #### L 100.0100, L500.2500 ####[facility] [address] [place], [address] MCH (RBC) [Entitic mass] 27.6 pg Normal 27.0-32.0 [facility] Comment on above: Performed By: #### L 100.0100, L500.2500 ####[facility] [address] [place], [address] MCHC (RBC) [Mass/Vol] 32.2 g/dL Normal 32-36 [facility] Comment on above: Performed By: #### L 100.0100, L500.2500 ####[facility] [address] [place], [address] MCV (RBC) [Entitic vol] 85.7 fL Normal 81-99 [facility] Comment on above: Performed By: #### L 100.0100, L500.2500 ####[facility] [address] [place], [address] Monocytes/100 WBC (Bld) 7.1 % Normal 0-10 [facility] Comment on above: Performed By: #### L 100.0100, L500.2500 ####[facility] [address] [place], [address] Neutrophils/100 WBC (Bld) 68.4 % Normal 47-70 [facility] Comment on above: Performed By: #### L 100.0100, L500.2500 ####[facility] [address] [place], [address] Nucleated RBC (Bld) [#/Vol] 0 10*3/uL Normal 0-5 [facility] Comment on above: Performed By: #### L 100.0100, L500.2500 ####[facility] [address] [place], [address] Platelet mean volume (Bld) [Entitic vol] 9.6 fL Normal 6.2-12.0 [facility] Comment on above: Performed By: #### L 100.0100, L500.2500 ####[facility] [address] [place], [address] Platelets (Bld) [#/Vol] 271 10*3/uL Normal 150-450 [facility] Comment on above: Performed By: #### L 100.0100, L500.2500 ####[facility] [address] [place], [address] RBC (Bld) [#/Vol] 4.56 10*6/uL Normal 4.2-5.4 [facility] Comment on above: Performed By: #### L 100.0100, L500.2500 ####[facility] [address] [place], [address] RDW SD 42.5 fl Normal 35.1-43.9 [facility] Comment on above: Performed By: #### L 100.0100, L500.2500 ####[facility] [address] [place], [address] WBC (Bld) [#/Vol] 9.1 10*3/uL Normal 4.4-11.0 [facility] Comment on above: Performed By: #### L 100.0100, L500.2500 ####[facility] [address] [place], [address] MR/CON.PCM.GIon 02-07-2024 MR/CON.PCM.GI Normal [facility] ,Urineon 02-07-2024 Beta HCG ( test) Ql (U) Negative Normal [facility] Comment on above: Order Comment: Anyon saravanan has had a period within 12 mo Result Comment: Very dilute urine specimens, as indicated by a low specificgravity, may not contain litigation claim representative levels of hCG.If is still suspected, a first morning urinespecimen should be collected 48 hours later and tested. Performed By: #### L 400.8110 ####[facility] [address] [place], [address] Urine testOrdered By: Brian Zuniga on 02-07-2024 Urine test Negative [facility] ALP [Catalytic activity/Vol] Ordered By: Abdias Gallagher on 02-06-2024 Serum or plasma alkaline phosphatase measurement 103 U/L 45-117 [facility] ALT [Catalytic activity/Vol] Ordered By: Abdias Gallagher on 02-06-2024 Serum or plasma alanine aminotransferase (ALT) measurement 60 U/L High 13-56 [facility] Albumin [Mass/Vol]Ordered By : Abdias Gallagher on 02-06-2024 Serum or plasma albumin measurement (mass/volume) 3.1 g/dL Low 3.2-5.0 [facility] Basic Metabolic Profile (BMP )on 02-06-2024 BUN/CRE 32.6 RATIO High 10-20 [facility] Comment on above: Performed By: #### L 500.2500, L100.0100 ####[facility] [address] [facility] [place], [address] CA,Total 9.5 mg/dL Normal 8.5-10.1 [facility] Comment on above: Performed By: #### L 500.2500, L100.0100 ####[facility] [address] [place], [address] Chloride [Moles/Vol] 107 mmol/L Normal 98-107 [facility] Comment on above: Performed By: #### L 500.2500, L100.0100 ####[facility] [address] [place], [address] CO2 [Moles/Vol] 27.0 mmol/L Normal 21.0-32.0 [facility] Comment on above: Performed By: #### L 500.2500, L100.0100 ####[facility] [address] [place], [address] Creatinine [Mass/Vol] 0.64 mg/dL Normal 0.55-1.02 [facility] Comment on above: Result Comment: The validity of the calculated GFR GFRAA in patients over70 years has not been determined. Clinical correlation isessential. Performed By: #### L 500.2500, L100.0100 ####[facility] [address] [place], [address] ECRCL 146.69 ml/min Normal [facility] Comment on above: Performed By: #### L 500.2500, L100.0100 ####[facility] [address] [place], [address] EST GFR - AA 127 mL/min Normal >60 [facility] Comment on above: Result Comment: Afri can Moz[place] GFR Calc Performed By: #### L 500.2500, L100.0100 ####[facility] [address] [place], [address] GAP 6 Normal 5-15 [facility] Comment on above: Performed By: #### L 500.2500, L100.0100 ####[facility] [address] [place], [address] GFR/1.73 sq M.predicted among non-blacks MDRD (S/P/Bld) [Vol rate/Area] 105 mL/min/{1.73_m2} Normal >60 [facility] Comment on above: Result Comment: Non- GFR Calc Performed By: #### L 500.2500, L100.0100 ####[facility] [address] [place], [address] Glucose [Mass/Vol] 95 mg/dL Normal 74-106 [facility] Comment on above: Performed By: #### L 500.2500, L100.0100 ####[facility] [address] [place], [address] Potassium [Moles/Vol] 3.2 mmol/L Low 3.5-5.1 [facility] Comment on above: Performed By: #### L 500.2500, L100.0100 ####[facility] [address] [place], [address] Sodium [Moles/Vol] 140 mmol/L Normal 136-145 [facility] Comment on above: Performed By: #### L 500.2500, L100.0100 ####[facility] [address] [place], [address] Urea nitrogen [Mass/Vol] 21 mg/dL High 7-18 [facility] Comment on above: Performed By: #### L 500.2500, L100.0100 ####[facility] [address] [place], [address] Bilirubin, totalOrdered By: Abdias Gallagher on 02-06-2024 Bilirubin, total 1.00 mg/dL 0.20-1.00 [facility] Bilirubin.direct [Mass/Vol]O rdered By: Abdias Gallagher on 02-06-2024 Bilirubin direct 0.32 mg/dL High 0.00-0.30 [facility] CBC W/Diff, Automatedon 12-0 Absolute Lymph 2.03 X10 3/uL Normal 0.83-4.51 [facility] Comment on above: Performed By: #### L 500.2500, L100.0100 ####[facility] [address] [place], [address] Absolute Neut 7.1 X10 3/uL Normal 2.0-7.7 [facility] Comment on above: Performed By: #### L 500.2500, L100.0100 ####[facility] [address] [place], [address] Basophils/100 WBC (Bld) 0.3 % Normal 0-1 [facility] Comment on above: Performed By: #### L 500.2500, L100.0100 ####[facility] [address] [place], [address] Eosinophils/100 WBC (Bld) 0.8 % Normal 0-5 [facility] Comment on above: Performed By: #### L 500.2500, L100.0100 ####[facility] [address] [place], [address] Erythrocyte distribution width (RBC) [Ratio] 13.7 % Normal 11.6-14.6 [facility] Comment on above: Performed By: #### L 500.2500, L100.0100 ####[facility] [address] [place], [address] Hematocrit (Bld) [Volume fraction] 37.4 % Normal 37-47 [facility] Comment on above: Performed By: #### L 500.2500, L100.0100 ####[facility] [address] [place], [address] Hemoglobin (Bld) [Mass/Vol] 12.1 g/dL Normal 12.0-15.0 [facility] Comment on above: Performed By: #### L 500.2500, L100.0100 ####[facility] [address] [place], [address] IG% 0.600 Normal 0.0-0.9 [facility] Comment on above: Result Comment: IG% - Immature Granulocytes (promyelocytes, myelocytes andmetamyelocytes) > 1% indicates that a LEFT SHIFT is Present. Performed By: #### L 500.2500, L100.0100 ####[facility] [address] [place], [address] Lymphocytes/100 WBC (Bld) 20.2 % Normal 19-41 [facility] Comment on above: Performed By: #### L 500.2500, L100.0100 ####[facility] [address] [place], [address] MCH (RBC) [Entitic mass] 27.9 pg Normal 27.0-32.0 [facility] Comment on above: Performed By: #### L 500.2500, L100.0100 ####[facility] [address] [place], [address] MCHC (RBC) [Mass/Vol] 32.4 g/dL Normal 32-36 [facility] Comment on above: Performed By: #### L 500.2500, L100.0100 ####[facility] [address] [place], [address] MCV (RBC) [Entitic vol] 86.2 fL Normal 81-99 [facility] Comment on above: Performed By: #### L 500.2500, L100.0100 ####[facility] [address] [place], [address] Monocytes/100 WBC (Bld) 7.0 % Normal 0-10 [facility] Comment on above: Performed By: #### L 500.2500, L100.0100 ####[facility] [address] [place], [address] Neutrophils/100 WBC (Bld) 71.1 % High 47-70 [facility] Comment on above: Performed By: #### L 500.2500, L100.0100 ####[facility] [address] [place], [address] Nucleated RBC (Bld) [#/Vol] 0 10*3/uL Normal 0-5 [facility] Comment on above: Performed By: #### L 500.2500, L100.0100 ####[facility] [address] [place], [address] Platelet mean volume (Bld) [Entitic vol] 9.7 fL Normal 6.2-12.0 [facility] Comment on above: Performed By: #### L 500.2500, L100.0100 ####[facility] [address] [place], [address] Platelets (Bld) [#/Vol] 281 10*3/uL Normal 150-450 [facility] Comment on above: Performed By: #### L 500.2500, L100.0100 ####[facility] [address] [place], [address] RBC (Bld) [#/Vol] 4.34 10*6/uL Normal 4.2-5.4 [facility] Comment on above: Performed By: #### L 500.2500, L100.0100 ####[facility] [address] [place], [address] RDW SD 42.9 fl Normal 35.1-43.9 [facility] Comment on above: Performed By: #### L 500.2500, L100.0100 ####[facility] [address] [place], [address] WBC (Bld) [#/Vol] 10.0 10*3/uL Normal 4.4-11.0 [facility] Comment on above: Performed By: #### L 500.2500, L100.0100 ####[facility] [address] [place], [address] Gram Stainon 02-06-2024 GS Acceptable Specimen? Yes (<25 Epithelial cells per/lpf) Gram Stain 3+ Gram positive rods 3+ Gram positive cocci 1+ White Blood Cells 1+ Epithelial cells Normal [facility] Comment on above: Performed By: #### M 100.2400, M100.2000 ####[facility] [address] [place], [address] Liver Profileon 02-06-2024 Albumin [Mass/Vol] 3.1 g/dL Low 3.2-5.0 [facility] Comment on above: Performed By: #### L 500.3400 ####[facility] [address] [place], [address] ALK P 103 U/L Normal 45-117 [facility] Comment on above: Performed By: #### L 500.3400 ####[facility] [address] [place], [address] ALT [Catalytic activity/Vol] 60 U/L High 13-56 [facility] Comment on above: Performed By: #### L 500.3400 ####[facility] [address] [place], [address] AST [Catalytic activity/Vol] 30 U/L Normal 15-37 [facility] Comment on above: Performed By: #### L 500.3400 ####[facility] [address] [place], [address] Bilirubin [Mass/Vol] 1.00 mg/dL Normal 0.20-1.00 [facility] Comment on above: Result Comment: For patients on eltrombopag therapy, use of Dimension [place] TBIL is not recommended. Performed By: #### L 500.3400 ####[facility] [address] [place], [address] Bilirubin.direct [Mass/Vol] 0.32 mg/dL High 0.00-0.30 [facility] Comment on above: Performed By: #### L 500.3400 ####[facility] [address] [place], [address] Globulin (S) [Mass/Vol] 4.2 g/dL Normal 2.2-4.2 [facility] Comment on above: Performed By: #### L 500.3400 ####[facility] [address] [place], [address] T PROT 7.3 g/dL Normal 6.4-8.2 [facility] Comment on above: Performed By: #### L 500.3400 ####[facility] [address] [place], [address] No Panel InformationOrdered By: Abdias Gallagher on 02-06-2024 30 U/L 15-37 [facility] Serum globulin measurementOr dered By: Abdias Gallagher on 02-06-2024 Serum globulin measurement 4.2 g/dL 2.2-4.2 [facility] Total proteinOrdered By: Callie Gallagher on 02-06-2024 Total protein 7.3 g/dL 6.4-8.2 [facility] Basic Metabolic Profile (BMP )on 02-05-2024 BUN/CRE 37.8 RATIO High 10-20 [facility] Comment on above: Performed By: #### L 500.2500, L501.5200, L100.0100, L501.2300 ####[facility] [address] [place], [address] CA,Total 9.8 mg/dL Normal 8.5-10.1 [facility] Comment on above: Performed By: #### L 500.2500, L501.5200, L100.0100, L501.2300 ####[facility] [address] [place], [address] Chloride [Moles/Vol] 107 mmol/L Normal 98-107 [facility] Comment on above: Performed By: #### L 500.2500, L501.5200, L100.0100, L501.2300 ####[facility] [address] [place], [address] CO2 [Moles/Vol] 30.0 mmol/L Normal 21.0-32.0 [facility] Comment on above: Performed By: #### L 500.2500, L501.5200, L100.0100, L501.2300 ####[facility] [address] [place], [address] Creatinine [Mass/Vol] 0.82 mg/dL Normal 0.55-1.02 [facility] Comment on above: Result Comment: The validity of the calculated GFR GFRAA in patients over70 years has not been determined. Clinical correlation isessential. Performed By: #### L 500.2500, L501.5200, L100.0100, L501.2300 ####[facility] [address] [place], [address] ECRCL 114.49 ml/min Normal [facility] Comment on above: Performed By: #### L 500.2500, L501.5200, L100.0100, L501.2300 ####[facility] [address] [place], [address] EST GFR - AA 96 mL/min Normal >60 [facility] Comment on above: Result Comment: Afri can [place]ican GFR Calc Performed By: #### L 500.2500, L501.5200, L100.0100, L501.2300 ####[facility] [address] [place], [address] GAP 6 Normal 5-15 [facility] Comment on above: Performed By: #### L 500.2500, L501.5200, L100.0100, L501.2300 ####[facility] [address] [place], [address] GFR/1.73 sq M.predicted among non-blacks MDRD (S/P/Bld) [Vol rate/Area] 80 mL/min/{1.73_m2} Normal >60 [facility] Comment on above: Result Comment: Non- GFR Calc Performed By: #### L 500.2500, L501.5200, L100.0100, L501.2300 ####[facility] [address] [place], [address] Glucose [Mass/Vol] 87 mg/dL Normal 74-106 [facility] Comment on above: Performed By: #### L 500.2500, L501.5200, L100.0100, L501.2300 ####[facility] [address] [place], [address] Potassium [Moles/Vol] 3.0 mmol/L Low 3.5-5.1 [facility] Comment on above: Performed By: #### L 500.2500, L501.5200, L100.0100, L501.2300 ####[facility] [address] [place], [address] Sodium [Moles/Vol] 143 mmol/L Normal 136-145 [facility] Comment on above: Performed By: #### L 500.2500, L501.5200, L100.0100, L501.2300 ####[facility] [address] [place], [address] Urea nitrogen [Mass/Vol] 31 mg/dL High 7-18 [facility] Comment on above: Performed By: #### L 500.2500, L501.5200, L100.0100, L501.2300 ####[facility] [address] [place], [address] CBC W/Diff, Automatedon 12-0 -2023 Absolute Lymph 3.23 X10 3/uL Normal 0.83-4.51 [facility] Comment on above: Performed By: #### L 500.2500, L501.5200, L100.0100, L501.2300 ####[facility] [address] [place], [address] Absolute Neut 7.2 X10 3/uL Normal 2.0-7.7 [facility] Comment on above: Performed By: #### L 500.2500, L501.5200, L100.0100, L501.2300 ####[facility] [address] [place], [address] Basophils/100 WBC (Bld) 0.2 % Normal 0-1 [facility] Comment on above: Performed By: #### L 500.2500, L501.5200, L100.0100, L501.2300 ####[facility] [address] [place], [address] Eosinophils/100 WBC (Bld) 0.1 % Normal 0-5 [facility] Comment on above: Performed By: #### L 500.2500, L501.5200, L100.0100, L501.2300 ####[facility] [address] [place], [address] Erythrocyte distribution width (RBC) [Ratio] 13.9 % Normal 11.6-14.6 [facility] Comment on above: Performed By: #### L 500.2500, L501.5200, L100.0100, L501.2300 ####[facility] [address] [place], [address] Hematocrit (Bld) [Volume fraction] 38.8 % Normal 37-47 [facility] Comment on above: Performed By: #### L 500.2500, L501.5200, L100.0100, L501.2300 ####[facility] [address] [place], [address] Hemoglobin (Bld) [Mass/Vol] 12.3 g/dL Normal 12.0-15.0 [facility] Comment on above: Performed By: #### L 500.2500, L501.5200, L100.0100, L501.2300 ####[facility] [address] [place], [address] IG% 0.400 Normal 0.0-0.9 [facility] Comment on above: Result Comment: IG% - Immature Granulocytes (promyelocytes, myelocytes andmetamyelocytes) > 1% indicates that a LEFT SHIFT is Present. Performed By: #### L 500.2500, L501.5200, L100.0100, L501.2300 ####[facility] [address] [place], [address] Lymphocytes/100 WBC (Bld) 28.8 % Normal 19-41 [facility] Comment on above: Performed By: #### L 500.2500, L501.5200, L100.0100, L501.2300 ####[facility] [address] [place], [address] MCH (RBC) [Entitic mass] 27.6 pg Normal 27.0-32.0 [facility] Comment on above: Performed By: #### L 500.2500, L501.5200, L100.0100, L501.2300 ####[facility] [address] [place], [address] MCHC (RBC) [Mass/Vol] 31.7 g/dL Low 32-36 [facility] Comment on above: Performed By: #### L 500.2500, L501.5200, L100.0100, L501.2300 ####[facility] [address] [place], [address] MCV (RBC) [Entitic vol] 87.0 fL Normal 81-99 [facility] Comment on above: Performed By: #### L 500.2500, L501.5200, L100.0100, L501.2300 ####[facility] [address] [place], [address] Monocytes/100 WBC (Bld) 6.3 % Normal 0-10 [facility] Comment on above: Performed By: #### L 500.2500, L501.5200, L100.0100, L501.2300 ####[facility] [address] [place], [address] Neutrophils/100 WBC (Bld) 64.2 % Normal 47-70 [facility] Comment on above: Performed By: #### L 500.2500, L501.5200, L100.0100, L501.2300 ####[facility] [address] [place], [address] Nucleated RBC (Bld) [#/Vol] 0 10*3/uL Normal 0-5 [facility] Comment on above: Performed By: #### L 500.2500, L501.5200, L100.0100, L501.2300 ####[facility] [address] [place], [address] Platelet mean volume (Bld) [Entitic vol] 9.5 fL Normal 6.2-12.0 [facility] Comment on above: Performed By: #### L 500.2500, L501.5200, L100.0100, L501.2300 ####[facility] [address] [place], [address] Platelets (Bld) [#/Vol] 249 10*3/uL Normal 150-450 [facility] Comment on above: Performed By: #### L 500.2500, L501.5200, L100.0100, L501.2300 ####[facility] [address] [place], [address] RBC (Bld) [#/Vol] 4.46 10*6/uL Normal 4.2-5.4 [facility] Comment on above: Performed By: #### L 500.2500, L501.5200, L100.0100, L501.2300 ####[facility] [address] [place], [address] RDW SD 43.8 fl Normal 35.1-43.9 [facility] Comment on above: Performed By: #### L 500.2500, L501.5200, L100.0100, L501.2300 ####[facility] [address] [place], [address] WBC (Bld) [#/Vol] 11.2 10*3/uL High 4.4-11.0 [facility] Comment on above: Performed By: #### L 500.2500, L501.5200, L100.0100, L501.2300 ####[facility] [address] [place], [address] Magnesiumon 02-05-2024 Magnesium [Mass/Vol] 2.4 mg/dL Normal 1.6-2.6 [facility] Comment on above: Performed By: #### L 500.2500, L501.5200, L100.0100, L501.2300 ####[facility] [address] [place], [address] Phosphoruson 02-05-2024 Phosphate [Mass/Vol] 3.5 mg/dL Normal 2.5-4.9 [facility] Comment on above: Performed By: #### L 500.2500, L501.5200, L100.0100, L501.2300 ####[facility] [address] [place], [address] Basic Metabolic Profile (BMP )on 02-04-2024 BUN/CRE 39.7 RATIO High 10-20 [facility] Comment on above: Performed By: #### L 100.0100, L500.2500 ####[facility] [address] [place], [address] CA,Total 9.5 mg/dL Normal 8.5-10.1 [facility] Comment on above: Performed By: #### L 100.0100, L500.2500 ####[facility] [address] [place], [address] Chloride [Moles/Vol] 107 mmol/L Normal 98-107 [facility] Comment on above: Performed By: #### L 100.0100, L500.2500 ####[facility] [address] [place], [address] CO2 [Moles/Vol] 24.0 mmol/L Normal 21.0-32.0 [facility] Comment on above: Performed By: #### L 100.0100, L500.2500 ####[facility] [address] [place], [address] Creatinine [Mass/Vol] 0.60 mg/dL Normal 0.55-1.02 [facility] Comment on above: Result Comment: The validity of the calculated GFR GFRAA in patients over70 years has not been determined. Clinical correlation isessential. Performed By: #### L 100.0100, L500.2500 ####[facility] [address] [place], [address] ECRCL 160.47 ml/min Normal [facility] Comment on above: Performed By: #### L 100.0100, L500.2500 ####[facility] [address] [place], [address] EST GFR - AA 137 mL/min Normal >60 [facility] Comment on above: Result Comment: Afri can Mozambican GFR Calc Performed By: #### L 100.0100, L500.2500 ####[facility] [address] [place], [address] GAP 8 Normal 5-15 [facility] Comment on above: Performed By: #### L 100.0100, L500.2500 ####[facility] [address] [place], [address] GFR/1.73 sq M.predicted among non-blacks MDRD (S/P/Bld) [Vol rate/Area] 113 mL/min/{1.73_m2} Normal >60 [facility] Comment on above: Result Comment: Non- GFR Calc Performed By: #### L 100.0100, L500.2500 ####[facility] [address] [place], [address] Glucose [Mass/Vol] 111 mg/dL High 74-106 [facility] Comment on above: Result Comment: Fast ing Glucose result from 100 to 125 mg/dLsuggests IMPAIRED HOMEOSTASIS per A.D.A. criteria. Performed By: #### L 100.0100, L500.2500 ####[facility] [address] [place], [address] Potassium [Moles/Vol] 4.0 mmol/L Normal 3.5-5.1 [facility] Comment on above: Performed By: #### L 100.0100, L500.2500 ####[facility] [address] [place], [address] Sodium [Moles/Vol] 139 mmol/L Normal 136-145 [facility] Comment on above: Performed By: #### L 100.0100, L500.2500 ####[facility] [address] [place], [address] Urea nitrogen [Mass/Vol] 24 mg/dL High 7-18 [facility] Comment on above: Performed By: #### L 100.0100, L500.2500 ####[facility] [address] [place], [address] CBC W/Diff, Automatedon 12-0 5-4 Absolute Lymph 1.43 X10 3/uL Normal 0.83-4.51 [facility] Comment on above: Performed By: #### L 100.0100, L500.2500 ####[facility] [address] [place], [address] Absolute Neut 11.0 X10 3/uL High 2.0-7.7 [facility] Comment on above: Performed By: #### L 100.0100, L500.2500 ####[facility] [address] [place], [address] Basophils/100 WBC (Bld) 0.2 % Normal 0-1 [facility] Comment on above: Performed By: #### L 100.0100, L500.2500 ####[facility] [address] [place], [address] Eosinophils/100 WBC (Bld) 0.1 % Normal 0-5 [facility] Comment on above: Performed By: #### L 100.0100, L500.2500 ####[facility] [address] [place], [address] Erythrocyte distribution width (RBC) [Ratio] 13.9 % Normal 11.6-14.6 [facility] Comment on above: Performed By: #### L 100.0100, L500.2500 ####[facility] [address] [place], [address] Hematocrit (Bld) [Volume fraction] 34.1 % Low 37-47 [facility] Comment on above: Performed By: #### L 100.0100, L500.2500 ####[facility] [address] [place], [address] Hemoglobin (Bld) [Mass/Vol] 11.1 g/dL Low 12.0-15.0 [facility] Comment on above: Performed By: #### L 100.0100, L500.2500 ####[facility] [address] [place], [address] IG% 0.700 Normal 0.0-0.9 [facility] Comment on above: Result Comment: IG% - Immature Granulocytes (promyelocytes, myelocytes andmetamyelocytes) > 1% indicates that a LEFT SHIFT is Present. Performed By: #### L 100.0100, L500.2500 ####[facility] [address] [place], [address] Lymphocytes/100 WBC (Bld) 10.8 % Low 19-41 [facility] Comment on above: Performed By: #### L 100.0100, L500.2500 ####[facility] [address] [place], [address] MCH (RBC) [Entitic mass] 27.8 pg Normal 27.0-32.0 [facility] Comment on above: Performed By: #### L 100.0100, L500.2500 ####[facility] [address] [place], [address] MCHC (RBC) [Mass/Vol] 32.6 g/dL Normal 32-36 [facility] Comment on above: Performed By: #### L 100.0100, L500.2500 ####[facility] [address] [place], [address] MCV (RBC) [Entitic vol] 85.3 fL Normal 81-99 [facility] Comment on above: Performed By: #### L 100.0100, L500.2500 ####[facility] [address] [place], [address] Monocytes/100 WBC (Bld) 5.6 % Normal 0-10 [facility] Comment on above: Performed By: #### L 100.0100, L500.2500 ####[facility] [address] [place], [address] Neutrophils/100 WBC (Bld) 82.6 % High 47-70 [facility] Comment on above: Performed By: #### L 100.0100, L500.2500 ####[facility] [address] [place], [address] Nucleated RBC (Bld) [#/Vol] 0 10*3/uL Normal 0-5 [facility] Comment on above: Performed By: #### L 100.0100, L500.2500 ####[facility] [address] [place], [address] Platelet mean volume (Bld) [Entitic vol] 9.5 fL Normal 6.2-12.0 [facility] Comment on above: Performed By: #### L 100.0100, L500.2500 ####[facility] [address] [place], [address] Platelets (Bld) [#/Vol] 234 10*3/uL Normal 150-450 [facility] Comment on above: Performed By: #### L 100.0100, L500.2500 ####[facility] [address] [place], [address] RBC (Bld) [#/Vol] 4.00 10*6/uL Low 4.2-5.4 [facility] Comment on above: Performed By: #### L 100.0100, L500.2500 ####[facility] [address] [place], [address] RDW SD 43.3 fl Normal 35.1-43.9 [facility] Comment on above: Performed By: #### L 100.0100, L500.2500 ####[facility] [address] [place], [address] WBC (Bld) [#/Vol] 13.3 10*3/uL High 4.4-11.0 [facility] Comment on above: Performed By: #### L 100.0100, L500.2500 ####[facility] [address] [place], [address] Allergen, Food Profileon CLAM <0.10 Normal Class 0 [facility] Comment on above: Performed By: #### L 5500.0410 ####[facility] [address] [place], [address] CODFISH <0.10 Normal Class 0 [facility] Comment on above: Performed By: #### L 5500.0410 ####[facility] [address] [place], [place], [id number] COMMENT Comment Normal . [facility] Comment on above: Result Comment: Jun saleh of Specific IgE Class Description of Class ----- < 0.10 0 Negative 0.10 - 0.31 0/I Equivocal/Low 0.32 - 0.55 I Low 0.56 - 1.40 II Moderate 1.41 - 3.90 III High 3.91 - 19.00 IV Very High 19.01 - 100.00 V Very High >100.00 Very High Performed By: #### L 5500.0410 ####[facility] [address] [place], [place], [id number] CORN <0.10 Normal Class 0 [facility] Comment on above: Performed By: #### L 5500.0410 ####[facility] [address] [place], [place], [phone] EGG, WHITE <0.10 Normal Class 0 [facility] Comment on above: Performed By: #### L 5500.0410 ####[facility] [address] [place], [place], [phone] MILK (COW) <0.10 Normal Class 0 [facility] Comment on above: Performed By: #### L 5500.0410 ####[facility] [address] [place], [place], [phone] PEANUT <0.10 Normal Class 0 [facility] Comment on above: Performed By: #### L 5500.0410 ####[facility] [address] [place], [place], [phone] SCALLOP <0.10 Normal Class 0 [facility] Comment on above: Performed By: #### L 5500.0410 ####[facility] [address] [place], [address] SESAME SEED 0.18 kU/L Abnormal Class 0/I [facility] Comment on above: Result Comment: Perf ormed at: [facility] [id number] Director: David King MD, Phone: [phone] Performed By: #### L 5500.0410 ####[facility] [address] [place], [address] SHRIMP <0.10 Normal Class 0 [facility] Comment on above: Performed By: #### L 5500.0410 ####[facility] [address] [place], [address] SOYBEAN <0.10 Normal Class 0 [facility] Comment on above: Performed By: #### L 5500.0410 ####[facility] [address] [place], [address] WALNUT,(Food) <0.10 Normal Class 0 [facility] Comment on above: Performed By: #### L 5500.0410 ####[facility] [address] [place], [address] WHEAT <0.10 Normal Class 0 [facility] Comment on above: Performed By: #### L 5500.0410 ####[facility] [address] [place], [address] Basic Metabolic Profile (BMP )on 02-03-2024 BUN/CRE 30.7 RATIO High 10-20 [facility] Comment on above: Performed By: #### L 500.2500, L100.0100 ####[facility] [address] [place], [address] CA,Total 9.4 mg/dL Normal 8.5-10.1 [facility] Comment on above: Performed By: #### L 500.2500, L100.0100 ####[facility] [address] [place], [address] Chloride [Moles/Vol] 105 mmol/L Normal 98-107 [facility] Comment on above: Performed By: #### L 500.2500, L100.0100 ####[facility] [address] [place], [address] CO2 [Moles/Vol] 26.0 mmol/L Normal 21.0-32.0 [facility] Comment on above: Performed By: #### L 500.2500, L100.0100 ####[facility] [address] [place], [address] Creatinine [Mass/Vol] 0.62 mg/dL Normal 0.55-1.02 [facility] Comment on above: Result Comment: The validity of the calculated GFR GFRAA in patients over70 years has not been determined. Clinical correlation isessential. Performed By: #### L 500.2500, L100.0100 ####[facility] [address] [place], [address] ECRCL 153.36 ml/min Normal [facility] Comment on above: Performed By: #### L 500.2500, L100.0100 ####[facility] [address] [place], [address] EST GFR - AA 133 mL/min Normal >60 [facility] Comment on above: Result Comment: Afri can Mozambican GFR Calc Performed By: #### L 500.2500, L100.0100 ####[facility] [address] [place], [address] GAP 6 Normal 5-15 [facility] Comment on above: Performed By: #### L 500.2500, L100.0100 ####[facility] [address] [place], [address] GFR/1.73 sq M.predicted among non-blacks MDRD (S/P/Bld) [Vol rate/Area] 110 mL/min/{1.73_m2} Normal >60 [facility] Comment on above: Result Comment: Non- GFR Calc Performed By: #### L 500.2500, L100.0100 ####[facility] [address] [place], [address] Glucose [Mass/Vol] 102 mg/dL Normal 74-106 [facility] Comment on above: Result Comment: Fast ing Glucose result from 100 to 125 mg/dLsuggests IMPAIRED HOMEOSTASIS per A.D.A. criteria. Performed By: #### L 500.2500, L100.0100 ####[facility] [address] [place], [address] Potassium [Moles/Vol] 4.0 mmol/L Normal 3.5-5.1 [facility] Comment on above: Performed By: #### L 500.2500, L100.0100 ####[facility] [address] [place], [address] Sodium [Moles/Vol] 137 mmol/L Normal 136-145 [facility] Comment on above: Performed By: #### L 500.2500, L100.0100 ####[facility] [address] [place], [address] Urea nitrogen [Mass/Vol] 19 mg/dL High 7-18 [facility] Comment on above: Performed By: #### L 500.2500, L100.0100 ####[facility] [address] [place], [address] CBC W/Diff, Automatedon 12-0 Absolute Lymph 1.54 X10 3/uL Normal 0.83-4.51 [facility] Comment on above: Performed By: #### L 500.2500, L100.0100 ####[facility] [address] [place], [address] Absolute Neut 15.5 X10 3/uL High 2.0-7.7 [facility] Comment on above: Performed By: #### L 500.2500, L100.0100 ####[facility] [address] [place], [address] Basophils/100 WBC (Bld) 0.1 % Normal 0-1 [facility] Comment on above: Performed By: #### L 500.2500, L100.0100 ####[facility] [address] [place], [address] Eosinophils/100 WBC (Bld) 0.0 % Normal 0-5 [facility] Comment on above: Performed By: #### L 500.2500, L100.0100 ####[facility] [address] [place], [address] Erythrocyte distribution width (RBC) [Ratio] 14.5 % Normal 11.6-14.6 [facility] Comment on above: Performed By: #### L 500.2500, L100.0100 ####[facility] [address] [place], [address] Hematocrit (Bld) [Volume fraction] 33.3 % Low 37-47 [facility] Comment on above: Performed By: #### L 500.2500, L100.0100 ####[facility] [address] [place], [address] Hemoglobin (Bld) [Mass/Vol] 10.4 g/dL Low 12.0-15.0 [facility] Comment on above: Performed By: #### L 500.2500, L100.0100 ####[facility] [address] [place], [address] IG% 0.600 Normal 0.0-0.9 [facility] Comment on above: Result Comment: IG% - Immature Granulocytes (promyelocytes, myelocytes andmetamyelocytes) > 1% indicates that a LEFT SHIFT is Present. Performed By: #### L 500.2500, L100.0100 ####[facility] [address] [place], [address] Lymphocytes/100 WBC (Bld) 8.6 % Low 19-41 [facility] Comment on above: Performed By: #### L 500.2500, L100.0100 ####[facility] [address] [place], [address] MCH (RBC) [Entitic mass] 27.4 pg Normal 27.0-32.0 [facility] Comment on above: Performed By: #### L 500.2500, L100.0100 ####[facility] [address] [place], [address] MCHC (RBC) [Mass/Vol] 31.2 g/dL Low 32-36 [facility] Comment on above: Performed By: #### L 500.2500, L100.0100 ####[facility] [address] [place], [address] MCV (RBC) [Entitic vol] 87.9 fL Normal 81-99 [facility] Comment on above: Performed By: #### L 500.2500, L100.0100 ####[facility] [address] [place], [address] Monocytes/100 WBC (Bld) 4.8 % Normal 0-10 [facility] Comment on above: Performed By: #### L 500.2500, L100.0100 ####[facility] [address] [place], [address] Neutrophils/100 WBC (Bld) 85.9 % High 47-70 [facility] Comment on above: Performed By: #### L 500.2500, L100.0100 ####[facility] [address] [place], [address] Nucleated RBC (Bld) [#/Vol] 0 10*3/uL Normal 0-5 [facility] Comment on above: Performed By: #### L 500.2500, L100.0100 ####[facility] [address] [place], [address] Platelet mean volume (Bld) [Entitic vol] 9.9 fL Normal 6.2-12.0 [facility] Comment on above: Performed By: #### L 500.2500, L100.0100 ####[facility] [address] [place], [address] Platelets (Bld) [#/Vol] 250 10*3/uL Normal 150-450 [facility] Comment on above: Performed By: #### L 500.2500, L100.0100 ####[facility] [address] [place], [address] RBC (Bld) [#/Vol] 3.79 10*6/uL Low 4.2-5.4 [facility] Comment on above: Performed By: #### L 500.2500, L100.0100 ####[facility] [address] [place], [address] RDW SD 46.8 fl High 35.1-43.9 [facility] Comment on above: Performed By: #### L 500.2500, L100.0100 ####[facility] [address] [place], [address] WBC (Bld) [#/Vol] 18.0 10*3/uL High 4.4-11.0 [facility] Comment on above: Performed By: #### L 500.2500, L100.0100 ####[facility] [address] [place], [address] Basic Metabolic Profile (BMP )on 02-02-2024 BUN/CRE 24.0 RATIO High 10-20 [facility] Comment on above: Performed By: #### L 501.5200, L500.2500, L100.0100, L501.2300 ####[facility] [address] [place], [address] CA,Total 9.3 mg/dL Normal 8.5-10.1 [facility] Comment on above: Performed By: #### L 501.5200, L500.2500, L100.0100, L501.2300 ####[facility] [address] [place], [address] Chloride [Moles/Vol] 106 mmol/L Normal 98-107 [facility] Comment on above: Performed By: #### L 501.5200, L500.2500, L100.0100, L501.2300 ####[facility] [address] [place], [address] CO2 [Moles/Vol] 26.0 mmol/L Normal 21.0-32.0 [facility] Comment on above: Performed By: #### L 501.5200, L500.2500, L100.0100, L501.2300 ####[facility] [address] [place], [address] Creatinine [Mass/Vol] 0.67 mg/dL Normal 0.55-1.02 [facility] Comment on above: Result Comment: The validity of the calculated GFR GFRAA in patients over70 years has not been determined. Clinical correlation isessential. Performed By: #### L 501.5200, L500.2500, L100.0100, L501.2300 ####[facility] [address] [place], [address] ECRCL 144.10 ml/min Normal [facility] Comment on above: Performed By: #### L 501.5200, L500.2500, L100.0100, L501.2300 ####[facility] [address] [place], [address] EST GFR - AA 122 mL/min Normal >60 [facility] Comment on above: Result Comment: Afri can Mozambican GFR Calc Performed By: #### L 501.5200, L500.2500, L100.0100, L501.2300 ####[facility] [address] [place], [address] GAP 4 Low 5-15 [facility] Comment on above: Performed By: #### L 501.5200, L500.2500, L100.0100, L501.2300 ####[facility] [address] [place], [address] GFR/1.73 sq M.predicted among non-blacks MDRD (S/P/Bld) [Vol rate/Area] 101 mL/min/{1.73_m2} Normal >60 [facility] Comment on above: Result Comment: Non- GFR Calc Performed By: #### L 501.5200, L500.2500, L100.0100, L501.2300 ####[facility] [address] [place], [address] Glucose [Mass/Vol] 119 mg/dL High 74-106 [facility] Comment on above: Result Comment: Fast ing Glucose result from 100 to 125 mg/dLsuggests IMPAIRED HOMEOSTASIS per A.D.A. criteria. Performed By: #### L 501.5200, L500.2500, L100.0100, L501.2300 ####[facility] [address] [place], [address] Potassium [Moles/Vol] 4.0 mmol/L Normal 3.5-5.1 [facility] Comment on above: Performed By: #### L 501.5200, L500.2500, L100.0100, L501.2300 ####[facility] [address] [place], [address] Sodium [Moles/Vol] 136 mmol/L Normal 136-145 [facility] Comment on above: Performed By: #### L 501.5200, L500.2500, L100.0100, L501.2300 ####[facility] [address] [place], [address] Urea nitrogen [Mass/Vol] 16 mg/dL Normal 7-18 [facility] Comment on above: Performed By: #### L 501.5200, L500.2500, L100.0100, L501.2300 ####[facility] [address] [place], [address] Bedside Glucoseon 02-02-2024 FINGERSTICK GLU 109 mg/dL High 74-106 [facility] Comment on above: Result Comment: ALISHA GEMENT OF PATIENT CARE PER NURSING PROTOCOL Performed By: #### L 501.080 ####[facility] [address] [place], [address] FINGERSTICK GLU 104 mg/dL Normal 74-106 [facility] Comment on above: Result Comment: ALISHA GEMENT OF PATIENT CARE PER NURSING PROTOCOL Performed By: #### L 501.080 ####[facility] [address] [place], [address] FINGERSTICK GLU 90 mg/dL Normal 74-106 [facility] Comment on above: Result Comment: ALISHA GEMENT OF PATIENT CARE PER NURSING PROTOCOL Performed By: #### L 501.080 ####[facility] [address] [place], [address] FINGERSTICK GLU 81 mg/dL Normal 74-106 [facility] Comment on above: Result Comment: ALISHA GEMENT OF PATIENT CARE PER NURSING PROTOCOL Performed By: #### L 501.080 ####[facility] [address] [place], [address] CBC W/Diff, Automatedon 12-0 Absolute Lymph 1.50 X10 3/uL Normal 0.83-4.51 [facility] Comment on above: Performed By: #### L 501.5200, L500.2500, L100.0100, L501.2300 ####[facility] [address] [place], [address] Absolute Neut 16.3 X10 3/uL High 2.0-7.7 [facility] Comment on above: Performed By: #### L 501.5200, L500.2500, L100.0100, L501.2300 ####[facility] [address] [place], [address] Basophils/100 WBC (Bld) 0.1 % Normal 0-1 [facility] Comment on above: Performed By: #### L 501.5200, L500.2500, L100.0100, L501.2300 ####[facility] [address] [place], [address] Eosinophils/100 WBC (Bld) 0.0 % Normal 0-5 [facility] Comment on above: Performed By: #### L 501.5200, L500.2500, L100.0100, L501.2300 ####[facility] [address] [place], [address] Erythrocyte distribution width (RBC) [Ratio] 14.6 % Normal 11.6-14.6 [facility] Comment on above: Performed By: #### L 501.5200, L500.2500, L100.0100, L501.2300 ####[facility] [address] [place], [address] Hematocrit (Bld) [Volume fraction] 33.3 % Low 37-47 [facility] Comment on above: Performed By: #### L 501.5200, L500.2500, L100.0100, L501.2300 ####[facility] [address] [place], [address] Hemoglobin (Bld) [Mass/Vol] 10.6 g/dL Low 12.0-15.0 [facility] Comment on above: Performed By: #### L 501.5200, L500.2500, L100.0100, L501.2300 ####[facility] [address] [place], [address] IG% 0.800 Normal 0.0-0.9 [facility] Comment on above: Result Comment: IG% - Immature Granulocytes (promyelocytes, myelocytes andmetamyelocytes) > 1% indicates that a LEFT SHIFT is Present. Performed By: #### L 501.5200, L500.2500, L100.0100, L501.2300 ####[facility] [address] [place], [address] Lymphocytes/100 WBC (Bld) 8.0 % Low 19-41 [facility] Comment on above: Performed By: #### L 501.5200, L500.2500, L100.0100, L501.2300 ####[facility] [address] [place], [address] MCH (RBC) [Entitic mass] 27.5 pg Normal 27.0-32.0 [facility] Comment on above: Performed By: #### L 501.5200, L500.2500, L100.0100, L501.2300 ####[facility] [address] [place], [address] MCHC (RBC) [Mass/Vol] 31.8 g/dL Low 32-36 [facility] Comment on above: Performed By: #### L 501.5200, L500.2500, L100.0100, L501.2300 ####[facility] [address] [place], [address] MCV (RBC) [Entitic vol] 86.3 fL Normal 81-99 [facility] Comment on above: Performed By: #### L 501.5200, L500.2500, L100.0100, L501.2300 ####[facility] [address] [place], [address] Monocytes/100 WBC (Bld) 3.7 % Normal 0-10 [facility] Comment on above: Performed By: #### L 501.5200, L500.2500, L100.0100, L501.2300 ####[facility] [address] [place], [address] Neutrophils/100 WBC (Bld) 87.4 % High 47-70 [facility] Comment on above: Performed By: #### L 501.5200, L500.2500, L100.0100, L501.2300 ####[facility] [address] [place], [address] Nucleated RBC (Bld) [#/Vol] 0 10*3/uL Normal 0-5 [facility] Comment on above: Performed By: #### L 501.5200, L500.2500, L100.0100, L501.2300 ####[facility] [address] [place], [address] Platelet mean volume (Bld) [Entitic vol] 9.8 fL Normal 6.2-12.0 [facility] Comment on above: Performed By: #### L 501.5200, L500.2500, L100.0100, L501.2300 ####[facility] [address] [place], [address] Platelets (Bld) [#/Vol] 283 10*3/uL Normal 150-450 [facility] Comment on above: Performed By: #### L 501.5200, L500.2500, L100.0100, L501.2300 ####[facility] [address] [place], [address] RBC (Bld) [#/Vol] 3.86 10*6/uL Low 4.2-5.4 [facility] Comment on above: Performed By: #### L 501.5200, L500.2500, L100.0100, L501.2300 ####[facility] [address] [place], [address] RDW SD 45.6 fl High 35.1-43.9 [facility] Comment on above: Performed By: #### L 501.5200, L500.2500, L100.0100, L501.2300 ####[facility] [address] [place], [address] WBC (Bld) [#/Vol] 18.7 10*3/uL High 4.4-11.0 [facility] Comment on above: Performed By: #### L 501.5200, L500.2500, L100.0100, L501.2300 ####[facility] [address] [place], [address] [facility] deOrdered By: Jez Cuba on 02-02-2024 Glucose measurement at bedside 109 mg/dL High 74-106 [facility] Magnesiumon 02-02-2024 Magnesium [Mass/Vol] 2.2 mg/dL Normal 1.6-2.6 [facility] Comment on above: Performed By: #### L 501.5200, L500.2500, L100.0100, L501.2300 ####[facility] [address] [place], [address] Phosphoruson 02-02-2024 Phosphate [Mass/Vol] 3.3 mg/dL Normal 2.5-4.9 [facility] Comment on above: Performed By: #### L 501.5200, L500.2500, L100.0100, L501.2300 ####[facility] [address] [place], [address] Albumin to globulin ratioOrd ered By: Mary Kern on 02-01-2024 Albumin to globulin ratio 0.8 RATIO Low 0.9-2.4 [facility] Bedside Glucoseon 02-01-2024 FINGERSTICK GLU 123 mg/dL High 74-106 [facility] Comment on above: Result Comment: ALISHA GEMENT OF PATIENT CARE PER NURSING PROTOCOL Performed By: #### L 501.080 ####[facility] [address] [place], [address] FINGERSTICK GLU 105 mg/dL Normal 74-106 [facility] Comment on above: Result Comment: ALISHA GEMENT OF PATIENT CARE PER NURSING PROTOCOL Performed By: #### L 501.080 ####[facility] [address] [place], [address] FINGERSTICK GLU 111 mg/dL High 74-106 [facility] Comment on above: Result Comment: ALIHSA GEMENT OF PATIENT CARE PER NURSING PROTOCOL Performed By: #### L 501.080 ####[facility] [address] [place], [address] CBC W/Diff, Automatedon 12- Absolute Lymph 0.62 X10 3/uL Low 0.83-4.51 [facility] Comment on above: Performed By: #### L 500.4050, L100.0100 ####[facility] [address] [place], [address] Absolute Neut 13.4 X10 3/uL High 2.0-7.7 [facility] Comment on above: Performed By: #### L 500.4050, L100.0100 ####[facility] [address] [place], [address] Basophils/100 WBC (Bld) 0.1 % Normal 0-1 [facility] Comment on above: Performed By: #### L 500.4050, L100.0100 ####[facility] [address] [place], [address] Eosinophils/100 WBC (Bld) 0.1 % Normal 0-5 [facility] Comment on above: Performed By: #### L 500.4050, L100.0100 ####[facility] [address] [place], [address] Erythrocyte distribution width (RBC) [Ratio] 14.4 % Normal 11.6-14.6 [facility] Comment on above: Performed By: #### L 500.4050, L100.0100 ####[facility] [address] [place], [address] Hematocrit (Bld) [Volume fraction] 37.1 % Normal 37-47 [facility] Comment on above: Performed By: #### L 500.4050, L100.0100 ####[facility] [address] [place], [address] Hemoglobin (Bld) [Mass/Vol] 12.0 g/dL Normal 12.0-15.0 [facility] Comment on above: Performed By: #### L 500.4050, L100.0100 ####[facility] [address] [place], [address] IG% 0.600 Normal 0.0-0.9 [facility] Comment on above: Result Comment: IG% - Immature Granulocytes (promyelocytes, myelocytes andmetamyelocytes) > 1% indicates that a LEFT SHIFT is Present. Performed By: #### L 500.4050, L100.0100 ####[facility] [address] [place], [address] Lymphocytes/100 WBC (Bld) 4.3 % Low 19-41 [facility] Comment on above: Performed By: #### L 500.4050, L100.0100 ####[facility] [address] [place], [address] MCH (RBC) [Entitic mass] 27.8 pg Normal 27.0-32.0 [facility] Comment on above: Performed By: #### L 500.4050, L100.0100 ####[facility] [address] [place], [address] MCHC (RBC) [Mass/Vol] 32.3 g/dL Normal 32-36 [facility] Comment on above: Performed By: #### L 500.4050, L100.0100 ####[facility] [address] [place], [address] MCV (RBC) [Entitic vol] 85.9 fL Normal 81-99 [facility] Comment on above: Performed By: #### L 500.4050, L100.0100 ####[facility] [address] [place], [address] Monocytes/100 WBC (Bld) 1.6 % Normal 0-10 [facility] Comment on above: Performed By: #### L 500.4050, L100.0100 ####[facility] [address] [place], [address] Neutrophils/100 WBC (Bld) 93.3 % High 47-70 [facility] Comment on above: Performed By: #### L 500.4050, L100.0100 ####[facility] [address] [place], [address] Nucleated RBC (Bld) [#/Vol] 0 10*3/uL Normal 0-5 [facility] Comment on above: Performed By: #### L 500.4050, L100.0100 ####[facility] [address] [place], [address] Platelet mean volume (Bld) [Entitic vol] 9.6 fL Normal 6.2-12.0 [facility] Comment on above: Performed By: #### L 500.4050, L100.0100 ####[facility] [address] [place], [address] Platelets (Bld) [#/Vol] 335 10*3/uL Normal 150-450 [facility] Comment on above: Performed By: #### L 500.4050, L100.0100 ####[facility] [address] [place], [address] RBC (Bld) [#/Vol] 4.32 10*6/uL Normal 4.2-5.4 [facility] Comment on above: Performed By: #### L 500.4050, L100.0100 ####[facility] [address] [place], [address] RDW SD 45.0 fl High 35.1-43.9 [facility] Comment on above: Performed By: #### L 500.4050, L100.0100 ####[facility] [address] [place], [address] WBC (Bld) [#/Vol] 14.4 10*3/uL High 4.4-11.0 [facility] Comment on above: Performed By: #### L 500.4050, L100.0100 ####[facility] [address] [place], [address] Comprehensive Metabolic Prof kyon 02-01-2024 Albumin [Mass/Vol] 3.1 g/dL Low 3.2-5.0 [facility] Comment on above: Performed By: #### L 500.4050, L100.0100 ####[facility] [address] [place], [address] Albumin/Globulin [Mass ratio] 0.8 {ratio} Low 0.9-2.4 [facility] Comment on above: Performed By: #### L 500.4050, L100.0100 ####[facility] [address] [place], [address] ALK P 125 U/L High 45-117 [facility] Comment on above: Performed By: #### L 500.4050, L100.0100 ####[facility] [address] [place], [address] ALT [Catalytic activity/Vol] 21 U/L Normal 13-56 [facility] Comment on above: Performed By: #### L 500.4050, L100.0100 ####[facility] [address] [place], [address] AST [Catalytic activity/Vol] 22 U/L Normal 15-37 [facility] Comment on above: Performed By: #### L 500.4050, L100.0100 ####[facility] [address] [place], [address] Bilirubin [Mass/Vol] 0.30 mg/dL Normal 0.20-1.00 [facility] Comment on above: Result Comment: For patients on eltrombopag therapy, use of Dimension [place] TBIL is not recommended. Performed By: #### L 500.4050, L100.0100 ####[facility] [address] [place], [address] BUN/CRE 7.7 RATIO Low 10-20 [facility] Comment on above: Performed By: #### L 500.4050, L100.0100 ####[facility] [address] [place], [address] CA,Total 7.3 mg/dL Low 8.5-10.1 [facility] Comment on above: Performed By: #### L 500.4050, L100.0100 ####[facility] [address] [place], [address] Chloride [Moles/Vol] 108 mmol/L High 98-107 [facility] Comment on above: Performed By: #### L 500.4050, L100.0100 ####[facility] [address] [place], [address] CO2 [Moles/Vol] 16.0 mmol/L Low 21.0-32.0 [facility] Comment on above: Performed By: #### L 500.4050, L100.0100 ####[facility] [address] [place], [address] Creatinine [Mass/Vol] 0.91 mg/dL Normal 0.55-1.02 [facility] Comment on above: Result Comment: The validity of the calculated GFR GFRAA in patients over70 years has not been determined. Clinical correlation isessential. Performed By: #### L 500.4050, L100.0100 ####[facility] [address] [place], [address] ECRCL 106.09 ml/min Normal [facility] Comment on above: Performed By: #### L 500.4050, L100.0100 ####[facility] [address] [place], [address] EST GFR - AA 85 mL/min Normal >60 [facility] Comment on above: Result Comment: Afri can Mozambican GFR Calc Performed By: #### L 500.4050, L100.0100 ####[facility] [address] [place], [address] GAP 14 Normal 5-15 [facility] Comment on above: Performed By: #### L 500.4050, L100.0100 ####[facility] [address] [place], [address] GFR/1.73 sq M.predicted among non-blacks MDRD (S/P/Bld) [Vol rate/Area] 70 mL/min/{1.73_m2} Normal >60 [facility] Comment on above: Result Comment: Non- GFR Calc Performed By: #### L 500.4050, L100.0100 ####[facility] [address] [place], [address] Globulin (S) [Mass/Vol] 4.0 g/dL Normal 2.2-4.2 [facility] Comment on above: Performed By: #### L 500.4050, L100.0100 ####[facility] [address] [place], [address] Glucose [Mass/Vol] 180 mg/dL High 74-106 [facility] Comment on above: Result Comment: Fast ing Glucose result greater than or equal to 126 mg/dLsuggests DIABETES MELLITUS per A.D.A. criteria. Performed By: #### L 500.4050, L100.0100 ####[facility] [address] [place], [address] Potassium [Moles/Vol] 4.8 mmol/L Normal 3.5-5.1 [facility] Comment on above: Performed By: #### L 500.4050, L100.0100 ####[facility] [address] [place], [address] Sodium [Moles/Vol] 138 mmol/L Normal 136-145 [facility] Comment on above: Performed By: #### L 500.4050, L100.0100 ####[facility] [address] [place], [address] T PROT 7.1 g/dL Normal 6.4-8.2 [facility] Comment on above: Performed By: #### L 500.4050, L100.0100 ####[facility] [address] [place], [address] Urea nitrogen [Mass/Vol] 7 mg/dL Normal 7-18 [facility] Comment on above: Performed By: #### L 500.4050, L100.0100 ####[facility] [address] [place], [place], [id number] Consultation - Intensiviston 02-01-2024 Consultation - Foot Worker Normal [facility] Lactic Acidon 02-01-2024 Lactate [Moles/Vol] 1.9 mmol/L Normal 0.4-1.9 [facility] Comment on above: Performed By: #### L 503.6005 ####[facility] [address] [place], [place], [id number] Lactate [Moles/Vol] 8.1 mmol/L Invalid Interpretation Code 0.4-1.9 [facility] Comment on above: Order Comment: Y Result Comment: Crit ical Result(s) Called at: 05:32:33 02/01/2024 by:Rachel hassan. Results read back by same. Performed By: #### L 503.6005 ####[facility] [address] [place], [place], [id number] Lactate [Moles/Vol] 5.4 mmol/L Invalid Interpretation Code 0.4-1.9 [facility] Comment on above: Result Comment: Crit ical Result(s) Called at: 01:34:42 02/01/2024 by:Rachel zazueta. Results read back by same. Performed By: #### L 503.6005 ####[facility] [address] [place], [address] Lactic acid measurementOrder ed By: Abdias Gallagher on 02-01-2024 Lactic acid measurement 1.9 mmol/L 0.4-2.0 [facility] Respiratory Cultureon 2023 RESPC Mixed normal respiratory manolo. No Streptococcus pneumoniae, beta-hemolytic Streptococcus or Staphylococcus aureus isolated. Normal [facility] Comment on above: Performed By: #### M 100.2400, M100.2000 ####[facility] [address] [place], [place], [id number] Serum cow milk IgE antibody assay (units/volume)Ordered By: Mary Kern on 02-01-2024 Serum cow milk IgE antibody assay (units/volume) <0.10 kU/L Class 0 [facility] Service comment (Unsp spec) [Interp]Ordered By: Mary Kern on 02-01-2024 Comment . [facility] Sesame seed IgE serumOrdered By: Mary Kern on 02-01-2024 Sesame seed IgE serum 0.18 kU/L High Class 0/I [facility] 12 Lead EKGon 01-31-2024 12 Lead EKG Normal [facility] Arterial patency Wrist arter y --pre arterial punctureOrdered By: Mary Kern on 01-31-2024 Assessment of wrist artery patency prior to arterial puncture N/A [facility] Base excess Calc (BldV) [Mol es/Vol]Ordered By: Mary Kern on 01-31-2024 Blood base excess determination -5 mmol/L Low -2-2 [facility] Basic Metabolic Profile (BMP )on 01-31-2024 BUN Normal 7-18 [facility] Comment on above: Result Comment: CANC ELED BECAUSE WHILE IT WAS SPINNING, THEY ORDERED A CMPAND CPK. Performed By: #### L 100.0100, L500.2500 ####[facility] [address] [place], [address] BUN/CRE Normal 10-20 [facility] Comment on above: Result Comment: CANC ELED BECAUSE WHILE IT WAS SPINNING, THEY ORDERED A CMPAND CPK. Performed By: #### L 100.0100, L500.2500 ####[facility] [address] [place], [address] CA,Total Normal 8.5-10.1 [facility] Comment on above: Result Comment: CANC ELED BECAUSE WHILE IT WAS SPINNING, THEY ORDERED A CMPAND CPK. Performed By: #### L 100.0100, L500.2500 ####[facility] [address] [place], [address] CL Normal 98-107 [facility] Comment on above: Result Comment: CANC ELED BECAUSE WHILE IT WAS SPINNING, THEY ORDERED A CMPAND CPK. Performed By: #### L 100.0100, L500.2500 ####[facility] [address] [place], [address] CO2 Normal 21.0-32.0 [facility] Comment on above: Result Comment: CANC ELED BECAUSE WHILE IT WAS SPINNING, THEY ORDERED A CMPAND CPK. Performed By: #### L 100.0100, L500.2500 ####[facility] [address] [place], [address] CREAT,SERUM Normal 0.55-1.02 [facility] Comment on above: Result Comment: CANC ELED BECAUSE WHILE IT WAS SPINNING, THEY ORDERED A CMPAND CPK. Performed By: #### L 100.0100, L500.2500 ####[facility] [address] [place], [address] EST GFR Normal >60 [facility] Comment on above: Result Comment: CANC ELED BECAUSE WHILE IT WAS SPINNING, THEY ORDERED A CMPAND CPK. Performed By: #### L 100.0100, L500.2500 ####[facility] [address] [place], [address] EST GFR - AA Normal >60 [facility] Comment on above: Result Comment: CANC ELED BECAUSE WHILE IT WAS SPINNING, THEY ORDERED A CMPAND CPK. Performed By: #### L 100.0100, L500.2500 ####[facility] [address] [place], [address] GAP Normal 5-15 [facility] Comment on above: Result Comment: CANC ELED BECAUSE WHILE IT WAS SPINNING, THEY ORDERED A CMPAND CPK. Performed By: #### L 100.0100, L500.2500 ####[facility] [address] [place], [address] GLU Normal 74-106 [facility] Comment on above: Result Comment: CANC ELED BECAUSE WHILE IT WAS SPINNING, THEY ORDERED A CMPAND CPK. Performed By: #### L 100.0100, L500.2500 ####[facility] [address] [place], [address] Potassium Normal 3.5-5.1 [facility] Comment on above: Result Comment: CANC ELED BECAUSE WHILE IT WAS SPINNING, THEY ORDERED A CMPAND CPK. Performed By: #### L 100.0100, L500.2500 ####[facility] [address] [place], [address] Basic Metabolic Profile (BMP) Normal 136-145 [facility] Comment on above: Result Comment: CANC ELED BECAUSE WHILE IT WAS SPINNING, THEY ORDERED A CMPAND CPK. Performed By: #### L 100.0100, L500.2500 ####[facility] [address] [place], [address] Blood Gases by [facility] 024 DEEPIKA TEST N/A Normal [facility] Comment on above: Performed By: #### L 9000.0800 ####[facility] [address] [place], [address] Base excess Calc (Bld) [Moles/Vol] -5 mmol/L Low -2 to +2 [facility] Comment on above: Performed By: #### L 9000.0800 ####[facility] [address] [place], [address] Blood Gas Type ART Normal [facility] Comment on above: Performed By: #### L 9000.0800 ####[facility] [address] [place], [address] CO2 [Moles/Vol] 21 mmol/L Normal [facility] Comment on above: Performed By: #### L 9000.0800 ####[facility] [address] [place], [address] FI02 25.0 Normal [facility] Comment on above: Performed By: #### L 9000.0800 ####[facility] [address] [place], [address] HCO3 (Bld) [Moles/Vol] 20.0 mmol/L Low 22-26 [facility] Comment on above: Performed By: #### L 9000.0800 ####[facility] [address] [place], [address] Mode AC Normal [facility] Comment on above: Performed By: #### L 9000.0800 ####[facility] [address] [place], [address] O2 Delivery Dev Adult Vent Normal [facility] Comment on above: Performed By: #### L 9000.0800 ####[facility] [address] [place], [address] pCO2 35.3 mmHg Normal 35-45 [facility] Comment on above: Performed By: #### L 9000.0800 ####[facility] [address] [place], [address] PEEP 5 Normal [facility] Comment on above: Performed By: #### L 9000.0800 ####[facility] [address] [place], [address] pH (Bld) 7.36 [pH] Normal 7.35-7.45 [facility] Comment on above: Performed By: #### L 9000.0800 ####[facility] [address] [place], [address] PO2 91 mmHG Normal 75-100 [facility] Comment on above: Performed By: #### L 9000.0800 ####[facility] [address] [place], [address] RR 14 Normal [facility] Comment on above: Performed By: #### L 9000.0800 ####[facility] [address] [place], [address] SITE L Radial Normal [facility] Comment on above: Performed By: #### L 9000.0800 ####[facility] [address] [place], [address] SO2 97 Normal 95-99 [facility] Comment on above: Performed By: #### L 9000.0800 ####[facility] [address] [place], [address] Vt 500.0 mL Normal [facility] Comment on above: Performed By: #### L 9000.0800 ####[facility] [address] [place], [address] DEEPIKA TEST Positive Normal [facility] Comment on above: Performed By: #### L 9000.0800 ####[facility] [address] [place], [address] Base excess Calc (Bld) [Moles/Vol] -6 mmol/L Low -2 to +2 [facility] Comment on above: Performed By: #### L 9000.0800 ####[facility] [address] [place], [address] Blood Gas Type ART [facility] Comment on above: Performed By: #### L 9000.0800 ####[facility] [address] [place], [address] CO2 [Moles/Vol] 22 mmol/L Normal [facility] Comment on above: Performed By: #### L 9000.0800 ####[facility] [address] [place], [address] FI02 40.0 Normal [facility] Comment on above: Performed By: #### L 9000.0800 ####[facility] [address] [place], [address] HCO3 (Bld) [Moles/Vol] 20.9 mmol/L Low 22-26 [facility] Comment on above: Performed By: #### L 9000.0800 ####[facility] [address] [place], [address] Mode AC Normal [facility] Comment on above: Performed By: #### L 9000.0800 ####[facility] [address] [place], [address] O2 Delivery Dev Adult Vent Normal [facility] Comment on above: Performed By: #### L 9000.0800 ####[facility] [address] [place], [address] pCO2 46.1 mmHg High 35-45 [facility] Comment on above: Performed By: #### L 9000.0800 ####[facility] [address] [place], [address] PEEP 5 Normal [facility] Comment on above: Performed By: #### L 9000.0800 ####[facility] [address] [place], [address] pH (Bld) 7.27 [pH] Low 7.35-7.45 [facility] Comment on above: Performed By: #### L 9000.0800 ####[facility] [address] [place], [address] PO2 92 mmHG Normal 75-100 [facility] Comment on above: Performed By: #### L 9000.0800 ####[facility] [address] [place], [address] RR 14 Normal [facility] Comment on above: Performed By: #### L 9000.0800 ####[facility] [address] [place], [address] SITE L Radial Normal [facility] Comment on above: Performed By: #### L 9000.0800 ####[facility] [address] [place], [address] SO2 96 Normal 95-99 [facility] Comment on above: Performed By: #### L 0.0800 ####[facility] [address] [place], [address] Vt 450.0 mL Normal [facility] Comment on above: Performed By: #### L 9000.0800 ####[facility] [address] [place], [address] Blood bicarbonate measuremen tOrdered By: Mary Kern on 01-31-2024 Blood bicarbonate measurement 20.0 mmol/L Low - [facility] CBC W/Diff, Automatedon 12-0 Absolute Lymph 2.96 X10 3/uL Normal 0.83-4.51 [facility] Comment on above: Performed By: #### L 100.0100, L500.2500 ####[facility] [address] [place], [address] Absolute Neut 3.8 X10 3/uL Normal 2.0-7.7 [facility] Comment on above: Performed By: #### L 100.0100, L500.2500 ####[facility] [address] [place], [address] Basophils/100 WBC (Bld) 0.3 % Normal 0-1 [facility] Comment on above: Performed By: #### L 100.0100, L500.2500 ####[facility] [address] [place], [address] Eosinophils/100 WBC (Bld) 1.1 % Normal 0-5 [facility] Comment on above: Performed By: #### L 100.0100, L500.2500 ####[facility] [address] [place], [address] Erythrocyte distribution width (RBC) [Ratio] 14.1 % Normal 11.6-14.6 [facility] Comment on above: Performed By: #### L 100.0100, L500.2500 ####[facility] [address] [place], [address] Hematocrit (Bld) [Volume fraction] 38.5 % Normal 37-47 [facility] Comment on above: Performed By: #### L 100.0100, L500.2500 ####[facility] [address] [place], [address] Hemoglobin (Bld) [Mass/Vol] 12.8 g/dL Normal 12.0-15.0 [facility] Comment on above: Performed By: #### L 100.0100, L500.2500 ####[facility] [address] [place], [address] IG% 0.500 Normal 0.0-0.9 [facility] Comment on above: Result Comment: IG% - Immature Granulocytes (promyelocytes, myelocytes andmetamyelocytes) > 1% indicates that a LEFT SHIFT is Present. Performed By: #### L 100.0100, L500.2500 ####[facility] [address] [place], [address] Lymphocytes/100 WBC (Bld) 40.2 % Normal 19-41 [facility] Comment on above: Performed By: #### L 100.0100, L500.2500 ####[facility] [address] [place], [address] MCH (RBC) [Entitic mass] 28.1 pg Normal 27.0-32.0 [facility] Comment on above: Performed By: #### L 100.0100, L500.2500 ####[facility] [address] [place], [address] MCHC (RBC) [Mass/Vol] 33.2 g/dL Normal 32-36 [facility] Comment on above: Performed By: #### L 100.0100, L500.2500 ####[facility] [address] [place], [address] MCV (RBC) [Entitic vol] 84.6 fL Normal 81-99 [facility] Comment on above: Performed By: #### L 100.0100, L500.2500 ####[facility] [address] [place], [address] Monocytes/100 WBC (Bld) 6.2 % Normal 0-10 [facility] Comment on above: Performed By: #### L 100.0100, L500.2500 ####[facility] [address] [place], [address] Neutrophils/100 WBC (Bld) 51.7 % Normal 47-70 [facility] Comment on above: Performed By: #### L 100.0100, L500.2500 ####[facility] [address] [place], [address] Nucleated RBC (Bld) [#/Vol] 0 10*3/uL Normal 0-5 [facility] Comment on above: Performed By: #### L 100.0100, L500.2500 ####[facility] [address] [place], [address] Platelet mean volume (Bld) [Entitic vol] 9.8 fL Normal 6.2-12.0 [facility] Comment on above: Performed By: #### L 100.0100, L500.2500 ####[facility] [address] [place], [address] Platelets (Bld) [#/Vol] 336 10*3/uL Normal 150-450 [facility] Comment on above: Performed By: #### L 100.0100, L500.2500 ####[facility] [address] [place], [address] RBC (Bld) [#/Vol] 4.55 10*6/uL Normal 4.2-5.4 [facility] Comment on above: Performed By: #### L 100.0100, L500.2500 ####[facility] [address] [place], [address] RDW SD 43.3 fl Normal 35.1-43.9 [facility] Comment on above: Performed By: #### L 100.0100, L500.2500 ####[facility] [address] [place], [address] WBC (Bld) [#/Vol] 7.4 10*3/uL Normal 4.4-11.0 [facility] Comment on above: Performed By: #### L 100.0100, L500.2500 ####[facility] [address] [place], [address] Absolute Neut Normal 2.0-7.7 [facility] Comment on above: Result Comment: DUPL ICATE@SHIRA Content FleetL SAID IT WAS OKAY TO CANCEL. H96 LABEL WAS@SENT DOWN WITH TUBE. H99 LABEL WAS SENT DOWN A@FEW MINUTES LATER WITH NO TUBE. H96 WAS ALREADY RAN@OFF TUBE. ASSUMED DUPLICATE. -DREX Performed By: #### L 503.6005, L100.0100 ####[facility] [address] [place], [address] HCT Normal 37-47 [facility] Comment on above: Result Comment: DUPL ICATE@SHIRA TEAL SAID IT WAS OKAY TO CANCEL. H96 LABEL WAS@SENT DOWN WITH TUBE. H99 LABEL WAS SENT DOWN A@FEW MINUTES LATER WITH NO TUBE. H96 WAS ALREADY RAN@OFF TUBE. ASSUMED DUPLICATE. -DREX Performed By: #### L 503.6005, L100.0100 ####[facility] [address] [place], [address] HGB Normal 12.0-15.0 [facility] Comment on above: Result Comment: DUPL ICATE@SHIRA TEAL SAID IT WAS OKAY TO CANCEL. H96 LABEL WAS@SENT DOWN WITH TUBE. H99 LABEL WAS SENT DOWN A@FEW MINUTES LATER WITH NO TUBE. H96 WAS ALREADY RAN@OFF TUBE. ASSUMED DUPLICATE. -DREX Performed By: #### L 503.6005, L100.0100 ####[facility] [address] [place], [address] MCH Normal 27.0-32.0 [facility] Comment on above: Result Comment: DUPL ICATE@SHIRA TEAL SAID IT WAS OKAY TO CANCEL. H96 LABEL WAS@SENT DOWN WITH TUBE. H99 LABEL WAS SENT DOWN A@FEW MINUTES LATER WITH NO TUBE. H96 WAS ALREADY RAN@OFF TUBE. ASSUMED DUPLICATE. -DREX Performed By: #### L 503.6005, L100.0100 ####[facility] [address] [place], [address] MCHC Normal 32-36 [facility] Comment on above: Result Comment: DUPL ICATE@SHIRA TEAL SAID IT WAS OKAY TO CANCEL. H96 LABEL WAS@SENT DOWN WITH TUBE. H99 LABEL WAS SENT DOWN A@FEW MINUTES LATER WITH NO TUBE. H96 WAS ALREADY RAN@OFF TUBE. ASSUMED DUPLICATE. -DREX Performed By: #### L 503.6005, L100.0100 ####[facility] [address] [place], [address] MCV Normal 81-99 [facility] Comment on above: Result Comment: DUPL ICATE@SHIRA TEAL SAID IT WAS OKAY TO CANCEL. H96 LABEL WAS@SENT DOWN WITH TUBE. H99 LABEL WAS SENT DOWN A@FEW MINUTES LATER WITH NO TUBE. H96 WAS ALREADY RAN@OFF TUBE. ASSUMED DUPLICATE. -DREX Performed By: #### L 503.6005, L100.0100 ####[facility] [address] [place], [address] NEUT% Normal 47-70 [facility] Comment on above: Result Comment: DUPL ICATE@SHIRA TEAL SAID IT WAS OKAY TO CANCEL. H96 LABEL WAS@SENT DOWN WITH TUBE. H99 LABEL WAS SENT DOWN A@FEW MINUTES LATER WITH NO TUBE. H96 WAS ALREADY RAN@OFF TUBE. ASSUMED DUPLICATE. -DREX Performed By: #### L 503.6005, L100.0100 ####[facility] [address] [place], [address] PLT Normal 150-450 [facility] Comment on above: Result Comment: DUPL ICATE@SHIRA TEAL SAID IT WAS OKAY TO CANCEL. H96 LABEL WAS@SENT DOWN WITH TUBE. H99 LABEL WAS SENT DOWN A@FEW MINUTES LATER WITH NO TUBE. H96 WAS ALREADY RAN@OFF TUBE. ASSUMED DUPLICATE. -DREX Performed By: #### L 503.6005, L100.0100 ####[facility] [address] [place], [address] RBC Normal 4.2-5.4 [facility] Comment on above: Result Comment: DUPL ICATE@SHIRA TEAL SAID IT WAS OKAY TO CANCEL. H96 LABEL WAS@SENT DOWN WITH TUBE. H99 LABEL WAS SENT DOWN A@FEW MINUTES LATER WITH NO TUBE. H96 WAS ALREADY RAN@OFF TUBE. ASSUMED DUPLICATE. -DREX Performed By: #### L 503.6005, L100.0100 ####[facility] [address] [place], [address] RDW CV Normal 11.6-14.6 [facility] Comment on above: Result Comment: DUPL ICATE@SHIRA TEAL SAID IT WAS OKAY TO CANCEL. H96 LABEL WAS@SENT DOWN WITH TUBE. H99 LABEL WAS SENT DOWN A@FEW MINUTES LATER WITH NO TUBE. H96 WAS ALREADY RAN@OFF TUBE. ASSUMED DUPLICATE. -DREX Performed By: #### L 503.6005, L100.0100 ####[facility] [address] [place], [address] RDW SD Normal 35.1-43.9 [facility] Comment on above: Result Comment: DUPL ICATE@SHIRA TEAL SAID IT WAS OKAY TO CANCEL. H96 LABEL WAS@SENT DOWN WITH TUBE. H99 LABEL WAS SENT DOWN A@FEW MINUTES LATER WITH NO TUBE. H96 WAS ALREADY RAN@OFF TUBE. ASSUMED DUPLICATE. -DREX Performed By: #### L 503.6005, L100.0100 ####[facility] [address] [place], [address] WBC Normal 4.4-11.0 [facility] Comment on above: Result Comment: DUPL ICATE@SHIRA TEAL SAID IT WAS OKAY TO CANCEL. H96 LABEL WAS@SENT DOWN WITH TUBE. H99 LABEL WAS SENT DOWN A@FEW MINUTES LATER WITH NO TUBE. H96 WAS ALREADY RAN@OFF TUBE. ASSUMED DUPLICATE. -DREX Performed By: #### L 503.6005, L100.0100 ####[facility] [address] [place], [address] CPK Total, Creatine Kinaseon 01-31-2024 CPK TOTAL 128 U/L Normal 26-192 [facility] Comment on above: Performed By: #### L 501.3620, L500.4050 ####[facility] [address] [place], [address] Chest 1 View (Portable)on Chest 1 View (Portable) Normal [facility] Comprehensive Metabolic Prof ilon 01-31-2024 Albumin [Mass/Vol] 3.4 g/dL Normal 3.2-5.0 [facility] Comment on above: Performed By: #### L 501.3620, L500.4050 ####[facility] [address] [place], [address] Albumin/Globulin [Mass ratio] 0.8 {ratio} Low 0.9-2.4 [facility] Comment on above: Performed By: #### L 501.3620, L500.4050 ####[facility] [address] [place], [address] ALK P 139 U/L High 45-117 [facility] Comment on above: Performed By: #### L 501.3620, L500.4050 ####[facility] [address] [place], [address] ALT [Catalytic activity/Vol] 21 U/L Normal 13-56 [facility] Comment on above: Performed By: #### L 501.3620, L500.4050 ####[facility] [address] [place], [address] AST [Catalytic activity/Vol] 5 U/L Low 15-37 [facility] Comment on above: Performed By: #### L 501.3620, L500.4050 ####[facility] [address] [place], [address] Bilirubin [Mass/Vol] 0.20 mg/dL Normal 0.20-1.00 [facility] Comment on above: Result Comment: For patients on eltrombopag therapy, use of Dimension [place] TBIL is not recommended. Performed By: #### L 501.3620, L500.4050 ####[facility] [address] [place], [address] BUN/CRE 12.5 RATIO Normal 10-20 [facility] Comment on above: Performed By: #### L 501.3620, L500.4050 ####[facility] [address] [place], [address] CA,Total 9.5 mg/dL Normal 8.5-10.1 [facility] Comment on above: Performed By: #### L 501.3620, L500.4050 ####[facility] [address] [place], [address] Chloride [Moles/Vol] 108 mmol/L High 98-107 [facility] Comment on above: Performed By: #### L 501.3620, L500.4050 ####[facility] [address] [place], [address] CO2 [Moles/Vol] 22.0 mmol/L Normal 21.0-32.0 [facility] Comment on above: Performed By: #### L 501.3620, L500.4050 ####[facility] [address] [place], [address] Creatinine [Mass/Vol] 0.88 mg/dL Normal 0.55-1.02 [facility] Comment on above: Result Comment: The validity of the calculated GFR GFRAA in patients over70 years has not been determined. Clinical correlation isessential. Performed By: #### L 501.3620, L500.4050 ####[facility] [address] [place], [address] ECRCL 107.88 ml/min Normal [facility] Comment on above: Performed By: #### L 501.3620, L500.4050 ####[facility] [address] [place], [address] EST GFR - AA 89 mL/min Normal >60 [facility] Comment on above: Result Comment: Afri can [place] GFR Calc Performed By: #### L 501.3620, L500.4050 ####[facility] [address] [place], [address] GAP 10 Normal 5-15 [facility] Comment on above: Performed By: #### L 501.3620, L500.4050 ####[facility] [address] [place], [address] GFR/1.73 sq M.predicted among non-blacks MDRD (S/P/Bld) [Vol rate/Area] 74 mL/min/{1.73_m2} Normal >60 [facility] Comment on above: Result Comment: Non- GFR Calc Performed By: #### L 501.3620, L500.4050 ####[facility] [address] [place], [address] Globulin (S) [Mass/Vol] 4.1 g/dL Normal 2.2-4.2 [facility] Comment on above: Performed By: #### L 501.3620, L500.4050 ####[facility] [address] [place], [address] Glucose [Mass/Vol] 121 mg/dL High 74-106 [facility] Comment on above: Result Comment: Fast ing Glucose result from 100 to 125 mg/dLsuggests IMPAIRED HOMEOSTASIS per A.D.A. criteria. Performed By: #### L 501.3620, L500.4050 ####[facility] [address] [place], [address] Potassium [Moles/Vol] 3.7 mmol/L Normal 3.5-5.1 [facility] Comment on above: Performed By: #### L 501.3620, L500.4050 ####[facility] [address] [place], [address] Sodium [Moles/Vol] 140 mmol/L Normal 136-145 [facility] Comment on above: Performed By: #### L 501.3620, L500.4050 ####[facility] [address] [place], [address] T PROT 7.5 g/dL Normal 6.4-8.2 [facility] Comment on above: Performed By: #### L 501.3620, L500.4050 ####[facility] [address] [place], [address] Urea nitrogen [Mass/Vol] 11 mg/dL Normal 7-18 [facility] Comment on above: Performed By: #### L 501.3620, L500.4050 ####[facility] [id number] [place], [place], [id number] Determination of fraction of inspired oxygenOrdered By: Mary Kern on 01-31-2024 Determination of fraction of inspired oxygen 25.0 [facility] Emergency Department Summary on 01-31-2024 Emergency Department Summary Normal [facility] H AND P Exam - Hospital[place] 01-31-2024 H&P Exam - Hospitalist Normal [facility] Lactic Acidon 01-31-2024 Lactate [Moles/Vol] 3.9 mmol/L Invalid Interpretation Code 0.4-1.9 [facility] Comment on above: Order Comment: Y Result Comment: Crit ical Result(s) Called at: 19:17:21 01/31/2024 by:Belinda to Shira Lo. Results read back by same. Performed By: #### L 503.6005, L100.0100 ####[facility] [id number] [place], [place], [address] Microorganism identified Cx Nom (Unsp spec)Ordered By: Mary Kern on 01-31-2024 Microbial respiratory culture or Staphylococcus aureus isolated. [facility] No Panel InformationOrdered By: Mary Kern on 01-31-2024 ART [facility] L Radial [facility] AC [facility] Adult Vent [facility] 500.0 mL [facility] 14 [facility] 5 [facility] Oxygen saturation measuremen tOrdered By: Mary Kern on 01-31-2024 Oxygen saturation measurement 97 % 95-99 [facility] Partial pressure of carbon d ioxide measurementOrdered By: Mary Kern on 01-31-2024 Partial pressure of carbon dioxide measurement 35.3 mmHg 35-45 [facility] Partial pressure of oxygen m easurementOrdered By: Mary Kern on 01-31-2024 Partial pressure of oxygen measurement 91 mmHG 75-100 [facility] Total carbon dioxide measure mentOrdered By: Mary Kern on 01-31-2024 Total carbon dioxide measurement 21 mmol/L [facility] Total creatine kinase measur ementOrdered By: Mickey Gage on 01-31-2024 Total creatine kinase measurement 128 U/L 26-192 [facility] Triglycerideson 01-31-2024 Triglyceride [Mass/Vol] 170 mg/dL Normal [facility] Comment on above: Order Comment: DC wh en propofol is d/c'd Result Comment: The drugs N-Acetylcysteine and Metamizole may falselydepress this assay.Serum Triglycerides Reference Interval Normal <150 mg/dL Borderline high 150 - 199 mg/dL High 200 - 499 mg/dL Very High > or = 500 mg/dL Performed By: #### L 501.5000 ####[facility] [id number] [place], [address] Triglycerides measurementOrd ered By: Mickey Gage on 01-31-2024 Triglycerides measurement 170 mg/dL <199 [facility] pH (Unsp spec)Ordered By: Cierra Kern on 01-31-2024 Measurement, pH 7.36 7.35-7.45 [facility] Absolute lymphocyte countOrd ered By: Wayne Lara on 05-18-2023 Lymphocytes Auto (Unsp spec) [#/Vol] 1.95 10*3/uL 0.83-4.51 [facility] Automated lymphocyte count a s percentage of total leukocytesOrdered By: Wayne Lara on 05-18-2023 Lymphocytes/100 WBC Auto (Unsp spec) 22.2 % 19-41 [facility] Basophil percentageOrdered B y: Wayne Lara on 05-18-2023 Basophil percentage 0-5 SEEN /hpf 0-5 [facility] Basophils/100 WBC (Bld) 0.2 % 0-1 [facility] Chloride [Moles/Vol] 106 mmol/L 98-107 [facility] Eosinophils/100 WBC (Bld) 1.0 % 0-5 [facility] Glucose [Mass/Vol] 88 mg/dL 74-106 [facility] Hemoglobin (Bld) [Mass/Vol] 10.0 g/dL 12.0-15.0 [facility] Monocytes/100 WBC (Bld) 7.6 % 0-10 [facility] Neutrophils (Bld) [#/Vol] 6.0 10*3/uL 2.0-7.7 [facility] Neutrophils/100 WBC (Bld) 68.5 % 47-70 [facility] Potassium [Moles/Vol] 3.5 mmol/L 3.5-5.1 [facility] Sodium [Moles/Vol] 138 mmol/L 136-145 [facility] WBC (Bld) [#/Vol] 8.8 10*3/uL 4.4-11.0 [facility] Bilirubin Test strip Ql (U)O rdered By: Wayne Lara on 05-18-2023 Bilirubin Ql (U) Negative Negative [facility] Determination of erythrocyte mean corpuscular volume (MCV)Ordered By: Wayne Lara on 05-18-2023 MCV (RBC) [Entitic vol] 85.1 fL 81-99 [facility] Erythrocyte distribution wid th ratioOrdered By: Wayne Lara on 05-18-2023 Erythrocyte distribution width (RBC) [Ratio] 13.6 % 11.6-14.6 [facility] Erythrocyte distribution wid th standard deviationOrdered By: Wayne Lara on 05-18-2023 Erythrocyte distribution width (RBC) [Entitic vol] 42.4 fL 35.1-43.9 [facility] Hematocrit Auto (Bld) [Volum e fraction]Ordered By: Wayne Lara on 05-18-2023 Hematocrit (Bld) [Volume fraction] 31.3 % 37-47 [facility] Immature granulocytes/100 WB C Auto (Bld)Ordered By: Wayne Lara on 05-18-2023 Immature granulocytes/100 WBC (Bld) 0.500 % 0.0-0.9 [facility] Comment on above: IG% - Immature Granu locytes (promyelocytes, myelocytes and metamyelocytes) > 1% indicates that a LEFT SHIFT is Present. Ketones Test strip Ql (U)Ord ered By: Wayne Lara on 05-18-2023 Ketones Ql (U) Negative Negative [facility] Laboratory - Chemistry and C hemistry - challengeOrdered By: Wayne Lara on 03-18-2024 CO2 [Moles/Vol] 25.0 mmol/L 21.0-32.0 [facility] Urea nitrogen/Creatinine [Mass ratio] 21.4 mg/mg 10-20 [facility] Laboratory - Hematology and Cell countsOrdered By: Wayne Lara on 05-18-2023 MCH (RBC) [Entitic mass] 27.2 pg 27.0-32.0 [facility] MCHC (RBC) [Mass/Vol] 31.9 g/dL 32-36 [facility] Nucleated RBC/100 WBC (Bld) [Ratio] 0 % 0-5 [facility] Platelet mean volume (Bld) [Entitic vol] 9.7 fL 6.2-12.0 [facility] Platelets (Bld) [#/Vol] 216 10*3/uL 150-450 [facility] Laboratory - Microbiology an d Antimicrobial susceptibilityOrdered By: Wayne Lara on 05-18-2023 SARS-CoV-2 (COVID-19) RNA PARESH+probe Ql (Unsp spec) [facility] Mucus LM Ql (Urine sed)Order ed By: Wayne Lara on 05-18-2023 Mucus Ql (Urine sed) 0 SEEN /hpf [facility] Nitrite Test strip Ql (U)Ord ered By: Wayne aLra on 05-18-2023 Nitrite Ql (U) Negative Negative [facility] No Panel InformationOrdered By: Wayne Lara on 05-18-2023 Urine RBC 10-25 SEEN /hpf 0-5 [facility] Estimated Creatinine Clearance Calc 128.28 ml/min [facility] Estimated GFR (MDRD) Amer 116 mL/min >60 [facility] Comment on above: GFR Calc Estimated GFR (MDRD) Non-Af Amer 96 mL/min >60 [facility] Comment on above: Non- GFR Calc Troponin I High Sensitivity 5 pg/mL 3.0-54.0 [facility] Comment on above: Please Note: New Luisa t Units and Gender Specific Reference Ranges. For more information see Policy Stat Procedure [place] High Sensitivity Troponin (TNIH) and attachments. Protein Test strip Ql (U)Ord ered By: Wayne Lraa on 05-18-2023 Protein Ql (U) Negative Negative [facility] RBC Auto (Bld) [#/Vol]Ordere d By: Wayne Lara on 05-18-2023 RBC (Bld) [#/Vol] 3.68 10*6/uL 4.2-5.4 [facility] Serum or plasma calcium lizzeth urement (mass/volume)Ordered By: Wayne Lara on 05-18-2023 Calcium [Mass/Vol] 9.8 mg/dL 8.5-10.1 [facility] Serum or plasma creatinine m easurement (mass/volume)Ordered By: Wayne Lara on 05-18-2023 Creatinine [Mass/Vol] 0.70 mg/dL 0.55-1.02 [facility] Comment on above: The validity of the calculated GFR & GFRAA in patients over 70 years has not been determined. Clinical correlation is essential. Serum or plasma urea nitroge n measurement (mass/volume)Ordered By: Wayne Lara on 05-18-2023 Urea nitrogen [Mass/Vol] 15 mg/dL 7-18 [facility] Squamous epithelial cells de tection in urine sediment by light microscopyOrdered By: Wayne Lara on 05-18-2023 Epithelial cells.squamous LM Ql (Urine sed) 10-25 SEEN /hpf 5-10 [facility] Thin prep Papanicolaou smear with manual screeningOrdered By: Wayne Lara on 05-18-2023 Thin prep Papanicolaou smear with manual screening 7 5-15 [facility] Urine blood detectionOrdered By: Wayne Lara on 05-18-2023 RBC Ql (U) Negative Negative [facility] Urine clarityOrdered By: Elizabeth Lara on 05-18-2023 Clarity (U) Clear Clear [facility] Urine color determinationOrd ered By: Wayne Lara on 05-18-2023 Color (U) Yellow Yellow [facility] Urine glucose detectionOrder ed By: Wayne Lara on 05-18-2023 Glucose Ql (U) Normal mg/dl Normal [facility] Urine leukocyte esterase det ection by dipstickOrdered By: Wayne Lara on 05-18-2023 Leukocyte esterase Test strip Ql (U) 25 /ul Negative [facility] Urine pHOrdered By: Wayne Lara on 05-18-2023 pH (U) 5.0 [pH] 5.0 - 8.0 [facility] Urine sediment bacteria coun t by microscopy (number/high power field)Ordered By: Wayne Lara on 05-18-2023 Bacteria LM.HPF (Urine sed) [#/Area] 2 /[HPF] None Seen [facility] Urine specific gravity measu rementOrdered By: Wayne Lara on 05-18-2023 Specific gravity (U) [Rel density] 1.020 1.002-1.030 [facility] Urine urobilinogen measureme ntOrdered By: Wayne Lara on 05-18-2023 Urobilinogen Ql (U) Normal mg/dl Normal [facility] Basophil percentageOrdered B y: Marck Thompson on 05-13-2023 Chloride [Moles/Vol] 106 mmol/L 98-107 [facility] Glucose [Mass/Vol] 91 mg/dL 74-106 [facility] Hemoglobin (Bld) [Mass/Vol] 11.9 g/dL 12.0-15.0 [facility] Potassium [Moles/Vol] 3.9 mmol/L 3.5-5.1 [facility] Comment on above: Slight Hemolysis, Re sult may be falsely increased. Sodium [Moles/Vol] 142 mmol/L 136-145 [facility] WBC (Bld) [#/Vol] 7.1 10*3/uL 4.4-11.0 [facility] Determination of erythrocyte mean corpuscular volume (MCV)Ordered By: Marck Thompson on 05-13-2023 MCV (RBC) [Entitic vol] 85.7 fL 81-99 [facility] Erythrocyte distribution wid th ratioOrdered By: Marck Thompson on 05-13-2023 Erythrocyte distribution width (RBC) [Ratio] 13.7 % 11.6-14.6 [facility] Erythrocyte distribution wid th standard deviationOrdered By: Marck Thompson on 05-13-2023 Erythrocyte distribution width (RBC) [Entitic vol] 42.7 fL 35.1-43.9 [facility] Hematocrit Auto (Bld) [Volum e fraction]Ordered By: Marck Thompson on 05-13-2023 Hematocrit (Bld) [Volume fraction] 38.2 % 37-47 [facility] Laboratory - Chemistry and C hemistry - challengeOrdered By: Marck Thompson on 05-13-2023 CO2 [Moles/Vol] 28.0 mmol/L 21.0-32.0 [facility] Urea nitrogen/Creatinine [Mass ratio] 17.1 mg/mg 10-20 [facility] Laboratory - Hematology and Cell countsOrdered By: Marck Thompson on 05-13-2023 MCH (RBC) [Entitic mass] 26.7 pg 27.0-32.0 [facility] MCHC (RBC) [Mass/Vol] 31.2 g/dL 32-36 [facility] Platelet mean volume (Bld) [Entitic vol] 10.3 fL 6.2-12.0 [facility] Platelets (Bld) [#/Vol] 287 10*3/uL 150-450 [facility] No Panel InformationOrdered By: Marck Thompson on 05-13-2023 Estimated Creatinine Clearance Calc 126.53 ml/min [facility] Estimated GFR (MDRD) Amer 115 mL/min >60 [facility] Comment on above: GFR Calc Estimated GFR (MDRD) Non-Af Amer 95 mL/min >60 [facility] Comment on above: Non- GFR Calc RBC Auto (Bld) [#/Vol]Ordere d By: Marck Thompson on 05-13-2023 RBC (Bld) [#/Vol] 4.46 10*6/uL 4.2-5.4 [facility] Serum or plasma calcium lizzeth urement (mass/volume)Ordered By: Marck Thompson on 05-13-2023 Calcium [Mass/Vol] 9.6 mg/dL 8.5-10.1 [facility] Serum or plasma creatinine m easurement (mass/volume)Ordered By: Marck Thompson on 05-13-2023 Creatinine [Mass/Vol] 0.70 mg/dL 0.55-1.02 [facility] Comment on above: The validity of the calculated GFR & GFRAA in patients over 70 years has not been determined. Clinical correlation is essential. Serum or plasma urea nitroge n measurement (mass/volume)Ordered By: Marck Thompson on 05-13-2023 Urea nitrogen [Mass/Vol] 12 mg/dL 7-18 [facility] Thin prep Papanicolaou smear with manual screeningOrdered By: Marck Thompson on 05-13-2023 Thin prep Papanicolaou smear with manual screening 8 5-15 [facility] Absolute lymphocyte countOrd ered By: HEALTH ASSESSMENT on 12-29-2022 Lymphocytes Auto (Unsp spec) [#/Vol] 1.89 10*3/uL 0.83-4.51 [facility] Absolute reticulocyte countO rdered By: HEALTH ASSESSMENT on 12-29-2022 Reticulocytes (Bld) [#/Vol] 0.00 10*3/uL 0-5 [facility] Basophil percentageOrdered B y: HEALTH ASSESSMENT on 12-29-2022 Basophil percentage 3.0 mg/dL 2.5-4.9 [facility] Bilirubin [Mass/Vol] 0.50 mg/dL 0.20-1.00 [facility] Comment on above: For patients on eltr ombopag therapy, use of Dimension [place] TBIL is not recommended. Chloride [Moles/Vol] 108 mmol/L 98-107 [facility] Cholesterol [Mass/Vol] 231 mg/dL <200 [facility] Comment on above: <200 mg/dL Desirable 200-240 mg/dL Borderline >240 mg/dL High Risk Glucose [Mass/Vol] 84 mg/dL 74-106 [facility] LDH [Catalytic activity/Vol] 104 U/L 84-246 [facility] Neutrophils (Bld) [#/Vol] 3.4 10*3/uL 2.0-7.7 [facility] Potassium [Moles/Vol] 3.6 mmol/L 3.5-5.1 [facility] Protein [Mass/Vol] 7.8 g/dL 6.4-8.2 [facility] Sodium [Moles/Vol] 136 mmol/L 136-145 [facility] Triglyceride [Mass/Vol] 161 mg/dL <199 [facility] Comment on above: The drugs N-Acetylcy steine and Metamizole may falsely depress this assay.Serum Triglycerides Reference Interval Normal <150 mg/dL Borderline high 150 - 199 mg/dL High 200 - 499 mg/dL Very High > or = 500 mg/dL WBC (Bld) [#/Vol] 5.8 10*3/uL 4.4-11.0 [facility] Blood erythrocytes count (nu mber/volume)Ordered By: HEALTH ASSESSMENT on 12-29-2022 RBC (Bld) [#/Vol] 4.53 10*6/uL 4.2-5.4 [facility] Blood hemoglobin measurement (mass/volume)Ordered By: HEALTH ASSESSMENT on 12-29-2022 Hemoglobin (Bld) [Mass/Vol] 12.8 g/dL 12.0-15.0 [facility] Blood platelet mean volumeOr dered By: HEALTH ASSESSMENT on 12-29-2022 Platelet mean volume (Bld) [Entitic vol] 10.0 fL 6.2-12.0 [facility] Determination of erythrocyte mean corpuscular volume (MCV)Ordered By: HEALTH ASSESSMENT on 12-29-2022 MCV (RBC) [Entitic vol] 87.2 fL 81-99 [facility] Direct bilirubinOrdered By: HEALTH ASSESSMENT on 12-29-2022 Bilirubin.direct [Mass/Vol] 0.13 mg/dL 0.00-0.30 [facility] Hematocrit Auto (Bld) [Volum e fraction]Ordered By: HEALTH ASSESSMENT on 12-29-2022 Hematocrit (Bld) [Volume fraction] 39.5 % 37-47 [facility] Laboratory - Chemistry and C hemistry - challengeOrdered By: HEALTH ASSESSMENT on 12-29-2022 ALP [Catalytic activity/Vol] 131 U/L 45-117 [facility] ALT [Catalytic activity/Vol] 24 U/L 13-56 [facility] Cholesterol.total/Choleste rol in HDL [Mass ratio] 4.40 {ratio} [facility] CO2 [Moles/Vol] 24.0 mmol/L 21.0-32.0 [facility] Globulin (S) [Mass/Vol] 4.3 g/dL 2.2-4.2 [facility] Urea nitrogen/Creatinine [Mass ratio] 19.3 mg/mg 10-20 [facility] Laboratory - Hematology and Cell countsOrdered By: HEALTH ASSESSMENT on 12-29-2022 Erythrocyte distribution width (RBC) [Entitic vol] 42.7 fL 35.1-43.9 [facility] Erythrocyte distribution width (RBC) [Ratio] 13.3 % 11.6-14.6 [facility] MCH (RBC) [Entitic mass] 28.3 pg 27.0-32.0 [facility] Nucleated RBC/100 WBC (Bld) [Ratio] 0 % 0-5 [facility] MCHC Auto (RBC) [Mass/Vol]Or dered By: HEALTH ASSESSMENT on 12-29-2022 MCHC (RBC) [Mass/Vol] 32.4 g/dL 32-36 [facility] No Panel InformationOrdered By: HEALTH ASSESSMENT on 12-29-2022 Estimated GFR (MDRD) Amer 111 mL/min >60 [facility] Comment on above: GFR Calc Estimated GFR (MDRD) Non-Af Amer 92 mL/min >60 [facility] Comment on above: Non- GFR Calc Platelets bldOrdered By: HEA LT ASSESSMENT on 12-29-2022 Platelets (Bld) [#/Vol] 317 10*3/uL 150-450 [facility] Segmented neutrophils/100 WB C Auto (Bld)Ordered By: HEALTH ASSESSMENT on 12-29-2022 Segmented neutrophils/100 WBC (Bld) 58.8 % 47-70 [facility] Serum or plasma albumin lizzeth urement (mass/volume)Ordered By: HEALTH ASSESSMENT on 12-29-2022 Albumin [Mass/Vol] 3.5 g/dL 3.2-5.0 [facility] Serum or plasma albumin/glob ulin mass ratioOrdered By: HEALTH ASSESSMENT on 12-29-2022 Albumin/Globulin [Mass ratio] 0.8 {ratio} 0.9-2.4 [facility] Serum or plasma calcium lizzeth urement (mass/volume)Ordered By: HEALTH ASSESSMENT on 12-29-2022 Calcium [Mass/Vol] 9.4 mg/dL 8.5-10.1 [facility] Serum or plasma cholesterol in HDL measurement (mass/volume)Ordered By: HEALTH ASSESSMENT on 12-29-2022 Cholesterol in HDL [Mass/Vol] 53 mg/dL >40 [facility] Comment on above: The drugs N-Acetylcy steine and Metamizole may falsely depress this assay. Reference Range HDL <40 mg/dL Low HDL Cholesterol HDL >or= 60 mg/dL High HDL Cholesterol Serum or plasma cholesterol in VLDL measurement (mass/volume)Ordered By: HEALTH ASSESSMENT on 12-29-2022 Cholesterol in VLDL [Mass/Vol] 32 mg/dL 5-40 [facility] Serum or plasma creatinine m easurement (mass/volume)Ordered By: HEALTH ASSESSMENT on 12-29-2022 Creatinine [Mass/Vol] 0.73 mg/dL 0.55-1.02 [facility] Comment on above: The validity of the calculated GFR & GFRAA in patients over 70 years has not been determined. Clinical correlation is essential. Serum or plasma low density lipoprotein (LDL) cholesterol measurement (mass/volume)Ordered By: HEALTH ASSESSMENT on 12-29-2022 Cholesterol in LDL [Mass/Vol] 146 mg/dL 0-130 [facility] Serum or plasma urea nitroge n measurement (mass/volume)Ordered By: HEALTH ASSESSMENT on 12-29-2022 Urea nitrogen [Mass/Vol] 14 mg/dL 7-18 [facility] Serum or plasma uric acid me asurement (mass/volume)Ordered By: HEALTH ASSESSMENT on 12-29-2022 Urate [Mass/Vol] 5.6 mg/dL 2.6-6.0 [facility] Comment on above: The drugs N-Acetylcy steine and Metamizole may falsely depress this assay. Thin prep Papanicolaou smear with manual screeningOrdered By: HEALTH ASSESSMENT on 12-29-2022 Thin prep Papanicolaou smear with manual screening 14 U/L 15-37 [facility] Thin prep Papanicolaou smear with manual screening 4 5-15 [facility] Gram stain for investigation of transfusion reactionOrdered By: Allie Trinidad on 12-15-2022 Microscopic observation Gram stain Nom (Unsp spec) [facility] Microscopic observation Gram stain Nom (Unsp spec) [facility] Thin prep Papanicolaou smear with manual screeningOrdered By: Allie Trinidad on 12-15-2022 Thin prep Papanicolaou smear with manual screening Neisseria or beta-hemolytic Streptococcus isolated. [facility] Thin prep Papanicolaou smear with manual screening Neisseria or beta-hemolytic Streptococcus isolated. [facility] Absolute lymphocyte countOrd ered By: Jp Barnard on 12-10-2022 Lymphocytes Auto (Unsp spec) [#/Vol] 1.43 10*3/uL 0.83-4.51 [facility] Basophil percentageOrdered B y: Jp Barnard on 12-10-2022 Basophils/100 WBC (Bld) 0.4 % 0-1 [facility] Chloride [Moles/Vol] 111 mmol/L 98-107 [facility] Eosin[facility]/100 WBC (Bld) 1.5 % 0-5 [facility] Glucose [Mass/Vol] 91 mg/dL 74-106 [facility] Neutrophils (Bld) [#/Vol] 4.8 10*3/uL 2.0-7.7 [facility] Neutrophils/100 WBC (Bld) 70.2 % 47-70 [facility] Potassium [Moles/Vol] 3.8 mmol/L 3.5-5.1 [facility] Sodium [Moles/Vol] 140 mmol/L 136-145 [facility] WBC (Bld) [#/Vol] 6.8 10*3/uL 4.4-11.0 [facility] Blood erythrocytes count (nu mber/volume)Ordered By: Jp Barnard on 12-10-2022 RBC (Bld) [#/Vol] 4.22 10*6/uL 4.2-5.4 [facility] Blood hemoglobin measurement (mass/volume)Ordered By: Jp Barnard on 12-10-2022 Hemoglobin (Bld) [Mass/Vol] 11.8 g/dL 12.0-15.0 [facility] Blood lymphocytes/100 leukoc ytesOrdered By: Jp Barnard on 12-10-2022 Lymphocytes/100 WBC (Bld) 21.0 % 19-41 [facility] Blood monocytes/100 leukocyt esOrdered By: Jp Barnard on 12-10-2022 Monocytes/100 WBC (Bld) 6.8 % 0-10 [facility] Blood platelet mean volumeOr dered By: Jp Barnard on 12-10-2022 Platelet mean volume (Bld) [Entitic vol] 9.8 fL 6.2-12.0 [facility] Determination of erythrocyte mean corpuscular volume (MCV)Ordered By: Jp Barnard on 12-10-2022 MCV (RBC) [Entitic vol] 88.9 fL 81-99 [facility] Hematocrit Auto (Bld) [Volum e fraction]Ordered By: Jp Barnard on 12-10-2022 Hematocrit (Bld) [Volume fraction] 37.5 % 37-47 [facility] Laboratory - Chemistry and C hemistry - challengeOrdered By: Jp Barnard on 12-10-2022 CO2 [Moles/Vol] 25.0 mmol/L 21.0-32.0 [facility] Urea nitrogen/Creatinine [Mass ratio] 21.0 mg/mg 10-20 [facility] Laboratory - Hematology and Cell countsOrdered By: Jp Barnard on 12-10-2022 Erythrocyte distribution width (RBC) [Entitic vol] 43.3 fL 35.1-43.9 [facility] Erythrocyte distribution width (RBC) [Ratio] 13.3 % 11.6-14.6 [facility] Immature granulocytes/100 WBC (Bld) 0.100 % 0.0-0.9 [facility] Comment on above: IG% - Immature Granu locytes (promyelocytes, myelocytes and metamyelocytes) > 1% indicates that a LEFT SHIFT is Present. MCH (RBC) [Entitic mass] 28.0 pg 27.0-32.0 [facility] Nucleated RBC/100 WBC (Bld) [Ratio] 0 % 0-5 [facility] MCHC Auto (RBC) [Mass/Vol]Or dered By: Jp Barnard on 12-10-2022 MCHC (RBC) [Mass/Vol] 31.5 g/dL 32-36 [facility] No Panel InformationOrdered By: Jp Barnard on 12-10-2022 Estimated Creatinine Clearance Calc 98.95 ml/min [facility] Estimated GFR (MDRD) Amer 134 mL/min >60 [facility] Comment on above: GFR Calc Estimated GFR (MDRD) Non-Af Amer 110 mL/min >60 [facility] Comment on above: Non- GFR Calc Platelets bldOrdered By: Callie Barnard on 12-10-2022 Platelets (Bld) [#/Vol] 233 10*3/uL 150-450 [facility] Serum or plasma calcium lizzeth urement (mass/volume)Ordered By: Jp Barnard on 12-10-2022 Calcium [Mass/Vol] 8.9 mg/dL 8.5-10.1 [facility] Serum or plasma creatinine m easurement (mass/volume)Ordered By: Jp Barnard on 12-10-2022 Creatinine [Mass/Vol] 0.62 mg/dL 0.55-1.02 [facility] Comment on above: The validity of the calculated GFR & GFRAA in patients over 70 years has not been determined. Clinical correlation is essential. Serum or plasma urea nitroge n measurement (mass/volume)Ordered By: Jp Barnard on 12-10-2022 Urea nitrogen [Mass/Vol] 13 mg/dL 7-18 [facility] Thin prep Papanicolaou smear with manual screeningOrdered By: Jp Akil on 12-10-2022 Thin prep Papanicolaou smear with manual screening 4 5-15 [facility] Culture, urineOrdered By: St matias Lewis on 09-23-2022 Bacteria identified Cx Nom (U) Presumptive E. coli [facility] Laboratory - Chemistry and C hemistry - challengeon 09-23-2022 Bilirubin Ql (U) Small (1+) [facility] Glucose Ql (U) Negative [facility] Ketones Ql (U) Negative [facility] pH (U) 5.0 [pH] [facility] Specific gravity (U) [Rel density] 1.020 [facility] Urobilinogen (U) [Mass/Vol] 0.4047716 mg/dL [facility] Laboratory - Specimen inform ationon 09-23-2022 Clarity (U) [place] [facility] Color (U) [place] [facility] Laboratory - Urinalysison Nitrite Ql (U) Positive [facility] Protein Ql (U) Trace [facility] No Panel Informationon 09-23 Urine Leukocytes Positive [facility] Urine Non-Hemolyzed Blood Small [facility] Basophil percentageOrdered B y: Dr. Garcia on 07-24-2022 Cholesterol [Mass/Vol] 183 mg/dL <200 [facility] [place] Comment on above: <200 mg/dL Desirable 200-240 mg/dL Borderline >240 mg/dL High Risk Triglyceride [Mass/Vol] 80 mg/dL <199 [facility] Comment on above: The drugs N-Acetylcy steine and Metamizole may falsely depress this assay.Serum Triglycerides Reference Interval Normal <150 mg/dL Borderline high 150 - 199 mg/dL High 200 - 499 mg/dL Very High > or = 500 mg/dL Serum or plasma cholesterol in HDL measurement (mass/volume)Ordered By: Dr. Garcia on 07-24-2022 Cholesterol in HDL [Mass/Vol] 49 mg/dL >40 [facility] Comment on above: The drugs N-Acetylcy steine and Metamizole may falsely depress this assay. Reference Range HDL <40 mg/dL Low HDL Cholesterol HDL >or= 60 mg/dL High HDL Cholesterol Serum or plasma cholesterol in VLDL measurement (mass/volume)Ordered By: Dr. Garcia on 07-24-2022 Cholesterol in VLDL [Mass/Vol] 16 mg/dL 5-40 [facility] Serum or plasma low density lipoprotein (LDL) cholesterol measurement (mass/volume)Ordered By: Dr. Garcia on 07-24-2022 Cholesterol in LDL [Mass/Vol] 118 mg/dL 0-130 [facility] Absolute lymphocyte counton 12-19-2021 Lymphocytes Auto (Unsp spec) [#/Vol] 2.25 10*3/uL 0.83-4.51 [facility] Work Phone: Absolute reticulocyte counto n 12-19-2021 Reticulocytes (Bld) [#/Vol] 0.00 10*3/uL 0-5 [facility] Work Phone: Basophil percentageon 2021 Basophil percentage 3.7 mg/dL 2.5-4.9 [facility] Work Phone: Bilirubin [Mass/Vol] 0.40 mg/dL 0.20-1.00 [facility] Work Phone: Comment on above: For patients on eltr ombopag therapy, use of Dimension [place] TBIL is not recommended. Chloride [Moles/Vol] 109 mmol/L 98-107 [facility] Work Phone: Cholesterol [Mass/Vol] 204 mg/dL <200 [facility] Work Phone: Comment on above: <200 mg/dL Desirable 200-240 mg/dL Borderline >240 mg/dL High Risk Glucose [Mass/Vol] 82 mg/dL 74-106 [facility] Work Phone: Neutrophils (Bld) [#/Vol] 4.5 10*3/uL 2.0-7.7 [facility] Work Phone: [phone] Potassium [Moles/Vol] 3.9 mmol/L 3.5-5.1 [facility] Work Phone: [phone] Protein [Mass/Vol] 7.4 g/dL 6.4-8.2 [facility] Work Phone: Sodium [Moles/Vol] 141 mmol/L 136-145 [facility] Work Phone: Triglyceride [Mass/Vol] 96 mg/dL <199 [facility] Work Phone: Comment on above: The drugs N-Acetylcy steine and Metamizole may falsely depress this assay.Serum Triglycerides Reference Interval Normal <150 mg/dL Borderline high 150 - 199 mg/dL High 200 - 499 mg/dL Very High > or = 500 mg/dL WBC (Bld) [#/Vol] 7.4 10*3/uL 4.4-11.0 [facility] Work Phone: Bilirubin Test strip Ql (U)o n 12-19-2021 Bilirubin Ql (U) Negative Negative [facility] Work Phone: [phone] Blood erythrocytes count (nu mber/volume)on 12-19-2021 RBC (Bld) [#/Vol] 4.02 10*6/uL 4.2-5.4 [facility] Work Phone: Blood hemoglobin measurement (mass/volume)on 12-19-2021 Hemoglobin (Bld) [Mass/Vol] 11.4 g/dL 12.0-15.0 [facility] Work Phone: Blood platelet mean volumeon 12-19-2021 Platelet mean volume (Bld) [Entitic vol] 9.5 fL 6.2-12.0 [facility] Work Phone: Determination of erythrocyte mean corpuscular volume (MCV)on 12-19-2021 MCV (RBC) [Entitic vol] 84.3 fL 81-99 [facility] Work Phone: [phone] Direct bilirubinon Bilirubin.direct [Mass/Vol] 0.10 mg/dL 0.00-0.30 [facility] Work Phone: Hematocrit Auto (Bld) [Volum e fraction]on 12-19-2021 Hematocrit (Bld) [Volume fraction] 33.9 % 37-47 [facility] Work Phone: [phone] Ketones Test strip Ql (U)on 12-19-2021 Ketones Ql (U) Negative Negative [facility] Work Phone: Laboratory - Chemistry and C hemistry - challengeon 12-19-2021 ALP [Catalytic activity/Vol] 134 U/L 45-117 [facility] Work Phone: ALT [Catalytic activity/Vol] 16 U/L 13-56 [facility] Work Phone: Cholesterol.total/Choleste rol in HDL [Mass ratio] 3.90 {ratio} [facility] Work Phone: [phone] CO2 [Moles/Vol] 25.0 mmol/L 21.0-32.0 [facility] Work Phone: [phone] Globulin (S) [Mass/Vol] 3.8 g/dL 2.2-4.2 [facility] Work Phone: [phone] Urea nitrogen/Creatinine [Mass ratio] 25.8 mg/mg 12-19 [facility] Work Phone: [phone] Cobalamin (Vitamin B12) [Mass/Vol] 630 pg/mL 211-911 [facility] Work Phone: [phone] Laboratory - Hematology and Cell countson 12-19-2021 Erythrocyte distribution width (RBC) [Entitic vol] 41.5 fL 35.1-43.9 [facility] Work Phone: Erythrocyte distribution width (RBC) [Ratio] 13.4 % 11.6-14.6 [facility] Work Phone: MCH (RBC) [Entitic mass] 28.4 pg 27.0-32.0 [facility] Work Phone: Nucleated RBC/100 WBC (Bld) [Ratio] 0 % 0-5 [facility] Work Phone: MCHC Auto (RBC) [Mass/Vol]on 12-19-2021 MCHC (RBC) [Mass/Vol] 33.6 g/dL 32-36 [facility] Work Phone: Nitrite Test strip Ql (U)on 12-19-2021 Nitrite Ql (U) Negative Negative [facility] Work Phone: No Panel Informationon 12-19 Estimated GFR (MDRD) Amer 125 mL/min >60 [facility] Work Phone: Comment on above: GFR Calc Estimated GFR (MDRD) Non-Af Amer 103 mL/min >60 [facility] Work Phone: Comment on above: Non- GFR Calc Thyroid Stimulating Hormone (TSH) 2.45 uIU/mL 0.358-3.74 [facility] Work Phone: Vitamin D 25-Hydroxy 24.3 ng/mL [facility] Work Phone: Comment on above: Vitamin D 25(OH) Sta tus Range Deficiency <20 ng/mL (50nmol/L) Insufficiency 20 - 30 ng/mL (50 - 75 nmol/L) Sufficiency 30 - 100 ng/mL (75 - 250 nmol/L) Toxicity >100 ng/mL (>250 nmol/L) Platelets bldon 12-19-2021 Platelets (Bld) [#/Vol] 251 10*3/uL 150-450 [facility] Work Phone: Protein Test strip Ql (U)on 12-19-2021 Protein Ql (U) Negative Negative [facility] Work Phone: Segmented neutrophils/100 WB C Auto (Bld)on 12-19-2021 Segmented neutrophils/100 WBC (Bld) 60.7 % 47-70 [facility] Work Phone: Serum or plasma albumin lizzeth urement (mass/volume)on 12-19-2021 Albumin [Mass/Vol] 3.6 g/dL 3.2-5.0 [facility] Work Phone: Serum or plasma albumin/glob ulin mass ratioon 12-19-2021 Albumin/Globulin [Mass ratio] 0.9 {ratio} 0.9-2.4 [facility] Work Phone: Serum or plasma calcium lizzeth urement (mass/volume)on 12-19-2021 Calcium [Mass/Vol] 9.5 mg/dL 8.5-10.1 [facility] Work Phone: Serum or plasma cholesterol in HDL measurement (mass/volume)on 12-19-2021 Cholesterol in HDL [Mass/Vol] 52 mg/dL >40 [facility] Work Phone: Comment on above: The drugs N-Acetylcy steine and Metamizole may falsely depress this assay. Reference Range HDL <40 mg/dL Low HDL Cholesterol HDL >or= 60 mg/dL High HDL Cholesterol Serum or plasma cholesterol in VLDL measurement (mass/volume)on 12-19-2021 Cholesterol in VLDL [Mass/Vol] 19 mg/dL 5-40 [facility] Work Phone: Serum or plasma creatinine m easurement (mass/volume)on 12-19-2021 Creatinine [Mass/Vol] 0.66 mg/dL 0.55-1.02 [facility] Work Phone: Comment on above: The validity of the calculated GFR & GFRAA in patients over 70 years has not been determined. Clinical correlation is essential. Serum or plasma low density lipoprotein (LDL) cholesterol measurement (mass/volume)on 12-19-2021 Cholesterol in LDL [Mass/Vol] 133 mg/dL 0-130 [facility] Work Phone: Serum or plasma urea nitroge n measurement (mass/volume)on 12-19-2021 Urea nitrogen [Mass/Vol] 17 mg/dL 7-18 [facility] Work Phone: Serum or plasma uric acid me asurement (mass/volume)on 12-19-2021 Urate [Mass/Vol] 6.6 mg/dL 2.6-6.0 [facility] Work Phone: Comment on above: The drugs N-Acetylcy steine and Metamizole may falsely depress this assay. Thin prep Papanicolaou smear with manual screeningon 12-19-2021 Thin prep Papanicolaou smear with manual screening 12 U/L 15-37 [facility] Work Phone: Thin prep Papanicolaou smear with manual screening 7 5-15 [facility] Work Phone: Thin prep Papanicolaou smear with manual screening 97 U/L 84-246 [facility] Work Phone: [phone] Urine blood detectionon 12-01 RBC Ql (U) Negative Negative [facility] Work Phone: Urine clarityon 12-19-2021 Clarity (U) Clear Clear [facility] Work Phone: Urine color determinationon 12-19-2021 Color (U) Yellow Yellow [facility] Work Phone: Urine glucose detectionon Glucose Ql (U) Normal mg/dl Normal [facility] Work Phone: [phone] Urine leukocyte esterase det ection by dipstickon 12-19-2021 Leukocyte esterase Test strip Ql (U) Negative Negative [facility] Work Phone: [phone] Urine pHon 12-19-2021 pH (U) 5.0 [pH] 5.0 - 8.0 [facility] Work Phone: [phone] Urine specific gravity measu rementon 12-19-2021 Specific gravity (U) [Rel density] 1.025 1.002-1.030 [facility] Work Phone: [phone] Urobilinogen Auto test strip Ql (U)on 12-19-2021 Urobilinogen Ql (U) Normal mg/dl Normal [facility] Work Phone: [phone] Basophil percentageon 2021 WBC (Bld) [#/Vol] 10.1 10*3/uL 4.4-11.0 [facility] Work Phone: [phone] Blood erythrocytes count (nu mber/volume)on 10-18-2021 RBC (Bld) [#/Vol] 3.68 10*6/uL 4.2-5.4 [facility] Work Phone: [phone] Blood hemoglobin measurement (mass/volume)on 10-18-2021 Hemoglobin (Bld) [Mass/Vol] 10.3 g/dL 12.0-15.0 [facility] Work Phone: [phone] Blood platelet mean volumeon 10-18-2021 Platelet mean volume (Bld) [Entitic vol] 10.3 fL 6.2-12.0 [facility] Work Phone: Determination of erythrocyte mean corpuscular volume (MCV)on 10-18-2021 MCV (RBC) [Entitic vol] 87.0 fL 81-99 [facility] Work Phone: [phone] Hematocrit Auto (Bld) [Volum e fraction]on 10-18-2021 Hematocrit (Bld) [Volume fraction] 32.0 % 37-47 [facility] Work Phone: Laboratory - Hematology and Cell countson 10-18-2021 Erythrocyte distribution width (RBC) [Entitic vol] 43.5 fL 35.1-43.9 [facility] Work Phone: [phone] Erythrocyte distribution width (RBC) [Ratio] 13.6 % 11.6-14.6 [facility] Work Phone: [phone] MCH (RBC) [Entitic mass] 28.0 pg 27.0-32.0 [facility] Work Phone: [phone] MCHC Auto (RBC) [Mass/Vol]on 10-18-2021 MCHC (RBC) [Mass/Vol] 32.2 g/dL 32-36 [facility] Work Phone: Platelets bldon 10-18-2021 Platelets (Bld) [#/Vol] 231 10*3/uL 150-450 [facility] Work Phone: Glucose Glucometer (BldC) [M ass/Vol]on 10-17-2021 Glucose [Mass/Vol] 77 mg/dL 74-106 [facility] Work Phone: Comment on above: MANAGEMENT OF PATIEN T CARE PER NURSING PROTOCOL Laboratory - Chemistry and C hemistry - challengeon 10-17-2021 HCG ( test) Ql (U) Negative [facility] Work Phone: Comment on above: Very dilute urine sp ecimens, as indicated by a low specificgravity, may not contain litigation claim representative levels of hCG. If is still suspected, a first morning urinespecimen should be collected 48 hours later and tested. INR in Blood by Coagulation assayon 10-14-2021 INR Coag (Bld) [Relative time] 1.0 {INR} [facility] Work Phone: Laboratory - Chemistry and C hemistry - challengeon 10-14-2021 Magnesium [Mass/Vol] 2.2 mg/dL 1.6-2.6 [facility] Work Phone: Laboratory - Coagulationon 0 10-14-2021 aPTT Coag (Bld) [Time] 29.7 s 24.1-36.2 [facility] [place] Work Phone: PT Coag (PPP) [Time] 13.0 s 11.7-14.9 [facility] Work Phone: Basophil percentageon 2021 Basophil percentage 10-25 SEEN /hpf 0-5 [facility] Work Phone: Bilirubin Test strip Ql (U)o n 09-08-2021 Bilirubin Ql (U) Negative Negative [facility] Work Phone: Ketones Test strip Ql (U)on 09-08-2021 Ketones Ql (U) Negative Negative [facility] Work Phone: Laboratory - Chemistry and C hemistry - challengeon 09-08-2021 Bilirubin Ql (U) Negative [facility] Work Phone: Glucose Ql (U) Negative [facility] Work Phone: Ketones Ql (U) Negative [facility] Work Phone: [phone] pH (U) 6.0 [pH] [facility] Work Phone: Specific gravity (U) [Rel density] 1.005 [facility] Work Phone: Urobilinogen (U) [Mass/Vol] 0.9969888 mg/dL [facility] Work Phone: Laboratory - Hematology and Cell countson 09-08-2021 Hemoglobin Ql (U) Hemolyzed [facility] Work Phone: Laboratory - Specimen inform ationon 09-08-2021 Clarity (U) Clear [facility] Work Phone: Color (U) YELLOW [facility] Work Phone: Laboratory - Urinalysison Nitrite Ql (U) Negative [facility] Work Phone: Protein Ql (U) 1+ [facility] Work Phone: Mucus LM Ql (Urine sed)on Mucus Ql (Urine sed) 0 SEEN /hpf [facility] Work Phone: [phone] Nitrite Test strip Ql (U)on 09-08-2021 Nitrite Ql (U) Negative Negative [facility] Work Phone: No Panel Informationon 09-08 Urine Leukocytes Positive [facility] Work Phone: [phone] Urine Non-Hemolyzed Blood Moderate [facility] Work Phone: [phone] Protein Test strip Ql (U)on 09-08-2021 Protein Ql (U) 30 mg/dl Negative [facility] Work Phone: Squamous epithelial cells de tection in urine sediment by light microscopyon 09-08-2021 Epithelial cells.squamous LM Ql (Urine sed) 0-5 SEEN /hpf 5-10 [facility] Work Phone: [phone] Urine blood detectionon 08-30 RBC Ql (U) 150 /ul Negative [facility] Work Phone: RBC Ql (U) 5-10 SEEN /hpf 0-5 [facility] Work Phone: Urine clarityon 09-08-2021 Clarity (U) Clear Clear [facility] Work Phone: [phone] Urine color determinationon 09-08-2021 Color (U) Straw Yellow [facility] Work Phone: Urine glucose detectionon Glucose Ql (U) Normal mg/dl Normal [facility] Work Phone: [phone] Urine leukocyte esterase det ection by dipstickon 09-08-2021 Leukocyte esterase Test strip Ql (U) 500 /ul Negative [facility] Work Phone: Urine pHon 09-08-2021 pH (U) 6.0 [pH] 5.0 - 8.0 [facility] Work Phone: [phone] Urine sediment bacteria coun t by microscopy (number/high power field)on 09-08-2021 Bacteria LM.HPF (Urine sed) [#/Area] 0 /[HPF] None Seen [facility] Work Phone: [phone] Urine specific gravity measu rementon 09-08-2021 Specific gravity (U) [Rel density] 1.010 1.002-1.030 [facility] Work Phone: Urobilinogen Auto test strip Ql (U)on 09-08-2021 Urobilinogen Ql (U) Normal mg/dl Normal [facility] Work Phone: [phone] Basophil percentageon 2021 Basophil percentage 10-25 SEEN /hpf 0-5 [facility] Work Phone: [phone] Bilirubin Test strip Ql (U)o n 08-25-2021 Bilirubin Ql (U) Negative Negative [facility] Work Phone: Ketones Test strip Ql (U)on 08-25-2021 Ketones Ql (U) Negative Negative [facility] Work Phone: Laboratory - Chemistry and C hemistry - challengeon 08-25-2021 Bilirubin Ql (U) Negative [facility] Work Phone: Glucose Ql (U) Negative [facility] Work Phone: Ketones Ql (U) Trace (5) [facility] Work Phone: pH (U) 5.0 [pH] [facility] Work Phone: Specific gravity (U) [Rel density] 1.005 [facility] Work Phone: Urobilinogen (U) [Mass/Vol] Negative [facility] Work Phone: Laboratory - Hematology and Cell countson 08-25-2021 Hemoglobin Ql (U) Hemolyzed [facility] Work Phone: Laboratory - Specimen inform ationon 08-25-2021 Clarity (U) Cloudy [facility] Work Phone: Color (U) STRAW [facility] Work Phone: Laboratory - Urinalysison Nitrite Ql (U) Negative [facility] Work Phone: Protein Ql (U) Negative [facility] Work Phone: Mucus LM Ql (Urine sed)on Mucus Ql (Urine sed) 0 SEEN /hpf [facility] Work Phone: Nitrite Test strip Ql (U)on 08-25-2021 Nitrite Ql (U) Negative Negative [facility] Work Phone: No Panel Informationon 08-25 Urine Leukocytes Positive [facility] Work Phone: Urine Non-Hemolyzed Blood Large [facility] Work Phone: Protein Test strip Ql (U)on 08-25-2021 Protein Ql (U) 30 mg/dl Negative [facility] Work Phone: [phone] Squamous epithelial cells de tection in urine sediment by light microscopyon 08-25-2021 Epithelial cells.squamous LM Ql (Urine sed) 0 SEEN /hpf 5-10 [facility] Work Phone: [phone] Urine blood detectionon 08-01 RBC Ql (U) 250 /ul Negative [facility] Work Phone: RBC Ql (U) 0 SEEN /hpf 0-5 [facility] Work Phone: [phone] Urine clarityon 08-25-2021 Clarity (U) Clear Clear [facility] Work Phone: [phone] Urine color determinationon 08-25-2021 Color (U) Yellow Yellow [facility] Work Phone: [phone] Urine glucose detectionon Glucose Ql (U) Normal mg/dl Normal [facility] Work Phone: Urine leukocyte esterase det ection by dipstickon 08-25-2021 Leukocyte esterase Test strip Ql (U) 500 /ul Negative [facility] Work Phone: Urine pHon 08-25-2021 pH (U) 7.0 [pH] 5.0 - 8.0 [facility] Work Phone: [phone] Urine sediment bacteria coun t by microscopy (number/high power field)on 08-25-2021 Bacteria LM.HPF (Urine sed) [#/Area] 0 /[HPF] None Seen [facility] Work Phone: [phone] Urine specific gravity measu rementon 08-25-2021 Specific gravity (U) [Rel density] 1.010 1.002-1.030 [facility] Work Phone: [phone] Urobilinogen Auto test strip Ql (U)on 08-25-2021 Urobilinogen Ql (U) Normal mg/dl Normal [facility] Work Phone: [phone] Cervical or vagninal specime n microscopic examination by cytology stain (reported ason 06-07-2021 Cytology report Cyto stain Doc (Cvx/Vag) Comment . [facility] Work Phone: Comment on above: The Pap smear is a s creening test designed to aid in thedetection of premalignant and malignant conditions of theuterine cervix. It is not a diagnostic procedure andshould not be used as the sole means of detecting cervicalcancer. Both false-positive and false-negative reports dooccur. Detection in cervical specim en of any of human papilloma virus (HPV) 16, 18, 31, 33,on 06-07-2021 HPV 16+18+31+33+35+39+45+51+52 +56+58+59+66+68 DNA Probe+sig amp Ql (Cvx) Negative Negative [facility] Work Phone: Comment on above: This nucleic acid am plification test detects fourteen high-risk HPV types (16,18,31,33,35,39,45,51,52,56,58,59,66,68)without differentiation.Performed at: - [address] [id number] Director: Annel Prasad MD, Phone: [phone] at: =[facility] [id number] Director: Annel Prasad MD, Phone: [phone] Laboratory - Cytologyon [employer] Cyto stain Nom (Cvx/Vag) [ID] Comment . [facility] Work Phone: Comment on above: Joy Tong, Cytot echnologist (ASCP) Laboratory - Miscellaneous t estson 06-07-2021 Service comment (Unsp spec) [Interp] Comment . [facility] Work Phone: Comment on above: This liquid based Th inPrep(R) pap test was screened withthe use of an image guided system. Service comment (Unsp spec) [Interp] . . [facility] Work Phone: No Panel Informationon 06-07 Pathology report final diagnosis Narrative Comment . [facility] Work Phone: Comment on above: NEGATIVE FOR INTRAEP ITHELIAL LESION OR MALIGNANCY. Basophil percentageon 2021 Chloride [Moles/Vol] 107 mmol/L 98-107 [facility] Work Phone: Glucose [Mass/Vol] 84 mg/dL 74-106 [facility] Work Phone: Potassium [Moles/Vol] 4.5 mmol/L 3.5-5.1 [facility] Work Phone: Sodium [Moles/Vol] 140 mmol/L 136-145 [facility] Work Phone: Laboratory - Chemistry and C hemistry - challengeon 03-13-2021 CO2 [Moles/Vol] 28.0 mmol/L 21.0-32.0 [facility] Work Phone: Urea nitrogen/Creatinine [Mass ratio] 18.3 mg/mg 10-20 [facility] Work Phone: No Panel Informationon 03-13 Estimated GFR (MDRD) Amer 127 mL/min >60 [facility] Work Phone: Comment on above: GFR Calc Estimated GFR (MDRD) Non-Af Amer 105 mL/min >60 [facility] Work Phone: Comment on above: Non- GFR Calc Thyroid Stimulating Hormone (TSH) 1.10 uIU/mL 0.358-3.74 [facility] Work Phone: Serum or plasma calcium lizzeth urement (mass/volume)on 03-13-2021 Calcium [Mass/Vol] 9.9 mg/dL 8.5-10.1 [facility] Work Phone: Serum or plasma creatinine m easurement (mass/volume)on 03-13-2021 Creatinine [Mass/Vol] 0.65 mg/dL 0.55-1.02 [facility] Work Phone: Comment on above: The validity of the calculated GFR & GFRAA in patients over 70 years has not been determined. Clinical correlation is essential. Serum or plasma urea nitroge n measurement (mass/volume)on 03-13-2021 Urea nitrogen [Mass/Vol] 12 mg/dL 7-18 [facility] Work Phone: Thin prep Papanicolaou smear with manual screeningon 03-13-2021 Thin prep Papanicolaou smear with manual screening 5 5-15 [facility] Work Phone: OPERATIVE PROCEDURESon 03-26 OPERATIVE PROCEDURES [facility] OPERATIVE REPORT NAME ACCOUNT SEX AGE ADMIT DISCHARGE PT MED. RECORD# NUMBER DATE DATE TYPE GOLDEN [id number] F 44 03/21/20 03/21/20 2 FABIENNE Yuen [id number] ROOM: [facility] DATE OF : 1975 DICTATING PHYSICIAN: Scot Clemens DATE OF SURGERY: March 21, 2020 SURGEON: Scot Clemens MD RESPIRATORY CARE INSTRUCTOR: JENNIFER Guaman ANESTHESIOLOGIST: ANESTHETIC: General endotracheal with 1% lidocaine and 0.5% Marcaine without epinephrine locally. PREOPERATIVE DIAGNOSIS: Biliary colic. POSTOPERATIVE DIAGNOSIS: Biliary colic. OPERATION PERFORMED: Laparoscopic cholecystectomy. COMPLICATIONS: None. ESTIMATED BLOOD LOSS: 8 mL. DRAINS: None. SPECIMENS: Gallbladder. DISPOSITION: Home. Diet: Regular. Activity: The patient was instructed not to lift more than 20 pounds or the equivalent of exertion for a period of 4 weeks. Otherwise, activity as tolerated. Medications: The patient was given Percocet as needed for pain and Colace as needed for constipation. The patient was instructed to resume any previous home medications. Work: The patient was given a two-week excused absence from work and reminded to remain on light duty until 2020. Follow up in Dr. Clemens's clinic in 2 weeks. DESCRIPTION OF OPERATION: Following the initiation of general endotracheal anesthesia, the patient was sterilely prepped and draped in the usual sterile supine position, and 1% lidocaine and 0.5% Marcaine without epinephrine were infused into the supraumbilical position. An 11 blade scalpel was then used to create a semi-circumferential supraumbilical incision. The incision was completed using electrocautery, and hemostasis was achieved using electrocautery as well. Blunt dissection was used to dissect down to the level of the anterior abdominal fascia. The anterior abdominal fascia was grasped with two Angélica clamps, and the Page 1 of 2 FABIENNE FRANKS Operative Report YUANCORYBilly FRANKS : 1975 abdomen was entered using Metzenbaum scissors. A finger was inserted through the defect in the anterior abdominal wall and inspected. There were no anterior abdominal wall defects. There were some minor loose adhesions around the periumbilical region that were easily swept out using a finger. Following this, a 12 mm Mone trocar was secured into the supraumbilical position, and the abdomen was insufflated with CO2 gas. A 5 mm, 30-degree camera was inserted through the trocar and the abdomen inspected. There were no acute intra-abdominal abnormalities. Under direct visualization, a 5 mm trocar was established in the subxiphoid position, and two 5 mm port sites were established in the right subcostal position. Prior to establishment of these 5 mm trocar sites, the areas were anesthetized with 1% lidocaine and 0.5% Marcaine without epinephrine locally. The patient was then placed in reverse Trendelenburg with left side down positioning. The edge of the liver was raised, exposing the dome of the gallbladder. The dome of the gallbladder was grasped and retracted in a cranial direction. It was noted that there were some whimsical omental adhesions to the fundus and body of the gallbladder. These adhesions were taken down using a combination of sharp dissection and blunt dissection. Blunt dissection was then used to dissect free the cystic artery and cystic duct. Once a critical view of these structures were obtained, both the cystic artery and cystic duct were clipped twice proximally and once distally and transected with laparoscopic scissors. Electrocautery was then used to remove the gallbladder from the gallbladder fossa. Hemostasis within the gallbladder fossa was obtained using electrocautery as well. Once the gallbladder was removed, it was placed within an Endo Catch bag. It should be noted that there was some minor bile spillage during the removal of the gallbladder. Thus, copious amounts of normal saline were used to irrigate the infrahepatic and suprahepatic space. Serial irrigations and aspirations were performed until the irrigant ran clear. The liver again was lifted, and the gallbladder fossa was inspected and found to have adequate hemostasis within the gallbladder fossa. The cystic artery and cystic duct stumps were inspected and found to have adequate clip placement. The patient was returned to a neutral position. The abdomen was allowed to desufflate through all port sites. The subxiphoid and two right subcostal ports were then removed under direct visualization. The abdomen was allowed to completely desufflate through the supraumbilical port. The supraumbilical port and the Endo Catch bag containing the gallbladder were then removed from the supraumbilical position. The supraumbilical anterior abdominal fascia was repaired using interrupted 0 Vicryl sutures. The dermis was repaired using interrupted 4-0 Vicryl sutures, and all skin incisions were repaired using 5-0 Monocryl. All instrument, needle and sponge counts were correct x2. The wounds were appropriately dressed and bandaged. The patient was then awakened, extubated, and taken to the PACU in good and stable condition. Dictated By: Scot Clemens MD 03/21/20 14:36 JOB #: [id number] Transcribed By: екатерина 03/22/20 09:40 Electronically signed by: E-SIGN DR. CLEMENS 03/26/20 12:09 Page 2 of 2 FABIENNE FRANKS Operative Report Normal [facility] URINEon 03-21-2020 Beta HCG ( test) Ql (U) Negative Normal NEGATIVE [facility] Comment on above: Performed By: #### 2 33090 #### [place] [address] EXTERNAL QC DONE? YES Normal [facility] Comment on above: Performed By: #### 2 47658 #### [address] [address] INTERNAL QC PASS Normal [facility] Comment on above: Performed By: #### 2 74604 #### [address] [address] EMERGENCY REPORTon 1 EMERGENCY REPORT [facility] EMERGENCY ROOM REPORT NAME ACCOUNT SEX AGE ADMIT DISCHARGE PT MED. RECORD# NUMBER DATE DATE TYPE GOLDEN [id number] F 44 02/22/20 02/22/20 3 FABIENNE Yuen [id number] ROOM: ER DATE OF : 1975 DICTATING PHYSICIAN: Melina Segal HISTORY OF PRESENT ILLNESS: A 44-year-old female who presents with abdominal pain. The patient states around midnight she developed sudden onset of right upper quadrant and epigastric pain that radiated into her right flank. The patient endorses nausea without vomiting. No diarrhea. The patient has a history of a gastric sleeve. She still has her gallbladder. She denies chest pain or shortness of breath. No cardiac history. No history of DVT or PE. She is not on any anticoagulants. She denies dysuria and hematuria. No fevers or chills. No history of this pain in the past. REVIEW OF SYSTEMS: Constitutional: Negative for chills and fever. HEENT: Negative for congestion and rhinorrhea. Respiratory: Negative for cough and shortness of breath. Cardiovascular: Negative for chest pain and leg swelling. GI: Positive for abdominal pain and nausea. Negative for diarrhea and constipation. : Negative for dysuria and hematuria. Musculoskeletal: Negative for arthralgias and myalgias. Neurologic: Negative for dizziness, lightheadedness, headaches, and weakness. Psych: Negative for confusion. PHYSICAL EXAMINATION: Constitutional: The patient is alert and nontoxic-appearing, in no acute distress. Head: Normocephalic, atraumatic. Eyes: PERRLA. Conjunctivae are normal. Neck: Range of motion is normal, supple. Cardiovascular: Normal rate and rhythm. No murmurs, rubs or gallops. Pulmonary: Lungs are clear to auscultation bilaterally. No stridor or wheezing. Abdomen: Soft and nondistended. The patient has epigastric and right upper quadrant tenderness to palpation. Positive Horton's sign. No cva tenderness to palpation. No masses or hernia. Musculoskeletal: Normal range of motion. No deformities. Skin: Warm and dry with no rashes. Neurologic: Oriented x3 with no focal neurologic deficits. DIAGNOSTIC DATA: EKG demonstrates normal sinus rhythm without acute ischemic changes. Bloodwork is pertinent for no leukocytosis. The patient has chronic anemia with a hemoglobin of 11.1. Electrolytes are unremarkable. AST is slightly elevated at 41. Alkaline phosphatase is slightly elevated at 119. Urinalysis does not suggest a UTI. CT of the abdomen demonstrates nonspecific distention of the gallbladder. MEDICAL DECISION-MAKING/EMERGEN CY DEPARTMENT COURSE AND TREATMENT: Differential diagnoses include biliary colic, cholecystitis, pancreatitis, kidney stone, and pyelonephritis. I have low suspicion for PE or other cardiac event given lack of risk factors and onset of presentation. The patient initially was given one Page 1 of 2 FABIENNE FRANKS Emergency Room Report GOLDEN FABIENNE Alpa : 1975 liter of normal saline, 4 mg of morphine and 4 mg of Zofran. On reevaluation, the patient's pain has improved. At this time, the seal delivery vehicle team technician will arrive in the next one to two hours. The patient is agreeable to waiting to receive a formal right upper quadrant ultrasound. Once again, the patient remains hemodynamically stable, and pain is controlled at this time. At the time of sign-out, disposition is pending the right upper quadrant ultrasound. The patient was signed out to Dr. Madrigal in stable condition. Dictated By: Melina Segal DO 03/04/20 03:32 JOB #: [id number] Transcribed By: екатерина 03/05/20 08:03 Electronically signed by: Dr. Melina Segal DO 03/10/20 21:26 Page 2 of 2 FABIENNE FRANKS Emergency Room Report Normal [facility] EMERGENCY REPORT [facility] EMERGENCY ROOM REPORT NAME ACCOUNT SEX AGE ADMIT DISCHARGE PT MED. RECORD# NUMBER DATE DATE TYPE GOLDEN [id number] F 44 02/22/20 02/22/20 3 FABIENNE Yuen [id number] ROOM: ER DATE OF : 1975 DICTATING PHYSICIAN: Melina Segal HISTORY OF PRESENT ILLNESS: The patient is a 44-year-old female with no pertinent medical history presents with abdominal pain. The patient states around midnight she developed sudden onset of sharp epigastric and right upper quadrant pain. The pain radiates into her right flank. The patient endorses nausea without vomiting. No diarrhea or fevers. The patient says she has no history of this in the past. No chest pain or shortness of breath. The patient is not on anticoagulation. She has no cardiac history. The patient denies a history of hematuria. No history of kidney stones. She still has her gallbladder. PAST SURGICAL HISTORY: Past surgical surgery includes a gastric sleeve and . REVIEW OF SYSTEMS: Constitutional: Negative for chills or fever. HEENT: Negative for congestion and rhinorrhea. Cardiovascular: Negative for chest pain or leg swelling. Respiratory: Negative for cough and shortness of breath. GI: Positive for abdominal pain and nausea. Negative for vomiting, diarrhea or constipation. : Negative for dysuria and hematuria. Musculoskeletal: Negative for arthralgias and myalgias. Neurologic: Negative for dizziness, lightheaded, headaches and weakness. Psychiatric: Negative for confusion and agitation. PHYSICAL EXAMINATION: Vital signs: Initial vitals: Blood pressure 166/111, heart rate 101, respiratory rate 16, and 97% on room air. Constitutional: The patient is alert and in no acute distress. She is nontoxic appearing. HEENT: Head is normocephalic and atraumatic. Eyes: Conjunctivae normal. PERRLA. Neck: Range of motion is normal. Neck is supple. Cardiovascular: Tachycardic, regular rhythm. No murmurs, rubs, or gallops. Pulmonary: Lungs are clear to auscultation bilaterally. No stridor or wheezing. Abdomen: Soft and nondistended. The patient has epigastric and right upper quadrant tenderness to palpation. Positive Horton sign. No guarding or rebound. No palpable masses or visible hernias. The patient has right CVA tenderness to palpation. Musculoskeletal: Normal range of motion. No deformities. Skin: Warm and dry. No rashes. Capillary refill is less than 2. Neurologic: The patient is oriented x3. No focal or neurologic deficits. DIAGNOSTIC DATA: EKG shows normal sinus rhythm with no acute ischemic changes. Page 1 of 2 FABIENNE FRANKS Emergency Room Report FABIENNE FRANKS : 1975 Blood work is pertinent for no leukocytosis. The patient has mild anemia with a hemoglobin of 11.1. No electrolyte derangements. Urinalysis does not show a UTI. CT abdomen shows nonspecific distension of the gallbladder. MEDICAL DECISION MAKING/EMERGENCY DEPARTMENT COURSE AND TREATMENT: This is a 64-year-old female presenting with abdominal pain. The patient is hemodynamically stable and afebrile. The patient is nontoxic appearing. Differential diagnoses include cholecystitis, gastritis, pancreatitis, pyelonephritis, biliary colic, renal colic. The patient was initially given 1 liter of normal saline, 4 mg of morphine and 4 mg of Zofran. PLAN/DISPOSITION: With the patient having discrete right upper quadrant tenderness with a positive Horton sign, I think she would benefit from a right upper quadrant ultrasound. watch technician will arrive in the next hour or so. The patient is agreeable to waiting until seal delivery vehicle team technician arrives. At time of sign out, disposition is pending right upper quadrant ultrasound. The patient was signed out to Dr. Madrigal in stable condition. Dictated By: Melina Segal DO 02/22/20 06:06 JOB #: [id number] Transcribed By: am 02/22/20 12:06 Electronically signed by: Dr. Melina Segal DO 03/10/20 21:05 Page 2 of 2 FABIENNE FRANKS Emergency Room Report Normal [facility] CBC + DIFFon 02-22-2020 Basophils (Bld) [#/Vol] 0.10 x10EE3/UL Normal 0.00 - 0 .10 [facility] Comment on above: Performed By: #### 2 95450 #### [facility],[address] [place] [address] Basophils/100 WBC (Bld) 1.2 % Normal 0.0 - 2.0 [facility] Comment on above: Performed By: #### 2 42190 #### [facility],[address] [place] [address] CBC + DIFF Normal [facility] Comment on above: Result Comment: CBC- COMPLETE BLOOD COUNT Performed By: #### 2 00256 #### [facility],[address] [place] [address] Eosinophils (Bld) [#/Vol] 0.10 x10EE3/UL Normal 0.00 - 0.50 [facility] Comment on above: Performed By: #### 2 82450 #### [facility],[address] [place] [address] Eosinophils/100 WBC (Bld) 0.8 % Normal 0.0 - 7.0 [facility] Comment on above: Performed By: #### 2 68695 #### [facility],[address] [place] [address] Erythrocyte distribution width (RBC) [Ratio] 15.7 % High 12.0 - 15.6 [facility] Comment on above: Performed By: #### 2 12241 #### [facility],[address] [place] [address] Hematocrit (Bld) [Volume fraction] 32.7 % Low 34.0 - 46.0 [facility] Comment on above: Performed By: #### 2 94852 #### [facility],[address] [place] [address] 23040 Hemoglobin (Bld) [Mass/Vol] 11.1 g/dL Low 12.0 - 16.0 [facility] Comment on above: Performed By: #### 2 74058 #### [facility],[address] [place] [address] Lymphocytes (Bld) [#/Vol] 1.50 x10EE3/UL Normal 0.80 - 2.80 [facility] Comment on above: Performed By: #### 2 45279 #### [facility],[address] [place] [address] 40167 Lymphocytes/100 WBC (Bld) 16.3 % Low 20.0 - 45. 0 [facility] Comment on above: Performed By: #### 2 96369 #### [facility],[address] [place] [address] MANUAL DIFF N/A Normal [facility] Comment on above: Performed By: #### 2 70660 #### [facility],[address] [place] [address] 14191 MCH (RBC) [Entitic mass] 25 pg Low 27 - 33 [facility] Comment on above: Performed By: #### 2 34096 #### [facility],[address] [place] [address] 51455 MCHC (RBC) [Mass/Vol] 34 X10 3 Normal 32 - 36 [facility] Comment on above: Performed By: #### 2 80100 #### [facility],[address] [place] [address] 33382 MCV (RBC) [Entitic vol] 74 fL Low 80 - 99 [facility] Comment on above: Performed By: #### 2 93667 #### [facility],[address] [place] [address]15 Monocytes (Bld) [#/Vol] 0.50 x10EE3/UL Normal 0.20 - 1 .00 [facility] Comment on above: Performed By: #### 2 82627 #### [facility],[address] [place] [address] MONOS % 5.9 % Normal 0.0 - 10.0 [facility] Comment on above: Performed By: #### 2 73410 #### [facility],[address] [place] [address] 35071 Morphology Gonzales (Bld) [Interp] N/A Normal [facility] Comment on above: Result Comment: {CD] Performed By: #### 2 73800 #### [address] [address] Neutrophils (Bld) [#/Vol] 6.80 x10EE3/UL Normal 1.50 - 7.10 [facility] Comment on above: Performed By: #### 2 91810 #### [facility],[address] [place], [place] [id number] Neutrophils/100 WBC (Bld) 75.8 % Normal 46.0 - 76. 0 [facility] Comment on above: Performed By: #### 2 00163 #### [facility],[address] [place] [address] 18271 Platelet mean volume (Bld) [Entitic vol] 7.5 fL Normal 6.6 - 10.5 [facility] Comment on above: Result Comment: AUTO MATED DIFFERENTIAL Performed By: #### 2 72861 #### [facility],[address] [place] [address] 86888 Platelets (Bld) [#/Vol] 273 x10EE3/UL Normal 150 - 450 [facility] Comment on above: Performed By: #### 2 69559 #### [facility],[address] [place] [address] 55085 RBC (Bld) [#/Vol] 4.42 x 10EE6/UL Normal 4.10 - 5.30 [facility] Comment on above: Performed By: #### 2 17619 #### [facility],[address] [place] [address] 20451 WBC (Bld) [#/Vol] 8.9 x 10EE3/UL Normal 4.5 - 10.8 [facility] Comment on above: Performed By: #### 2 25462 #### [facility],[address] [place] [address] 91143 CMP with eGFRon 02-22-2020 Age - Reported 44 years Normal [facility] Comment on above: Performed By: #### 2 41280 ####[facility],[address] [place] [address] 96192 Albumin [Mass/Vol] 3.2 g/dL Low 3.4 - 5.0 [facility] Comment on above: Performed By: #### 2 48382 ####[facility],[address] [place] [address] 78584 Albumin/Globulin [Mass ratio] 0.8 {ratio} Low 0.9 - 1.6 [facility] Comment on above: Performed By: #### 2 99154 ####[facility],[address] [place] [address] 81924 ALK PHOS 119 U/L High 46 - 116 [facility] Comment on above: Performed By: #### 2 21802 ####[facility],[address] [place] [address] 57132 ALT/SGPT 35 U/L Normal 14 - 59 [facility] Comment on above: Performed By: #### 2 65109 ####[facility],[address] [place] [address] 00621 Anion gap [Moles/Vol] 11 mmol/L Normal 10 - 20 [facility] Comment on above: Performed By: #### 2 17913 ####[facility],[address] [place] [address] 96850 AST/SGOT 41 U/L High 13 - 39 [facility] Comment on above: Performed By: #### 2 12334 ####[facility],[address] [place] [address] 39814 B/C RATIO 17 ratio Normal 0 - 30 [facility] Comment on above: Performed By: #### 2 51590 ####[facility],[address] [place] [address] 71385 Bilirubin [Mass/Vol] 0.4 mg/dL Normal 0.2 - 1.0 [facility] Comment on above: Performed By: #### 2 36235 ####[facility],[address] [place] [address] 58106 Calcium [Mass/Vol] 8.4 mg/dL Low 8.5 - 10.1 [facility] Comment on above: Performed By: #### 2 39031 ####[facility],[address] [place] [address] 54103 Chloride [Moles/Vol] 105 mmol/L Normal 98 - 107 [facility] Comment on above: Performed By: #### 2 46956 ####[facility],[address] [place] [address] 53184 CO2 [Moles/Vol] 24.2 mmol/L Normal 21.0 - 32.0 [facility] Comment on above: Performed By: #### 2 44295 ####[facility],[address] [place] [address] 12427 Creatinine [Mass/Vol] 0.7 mg/dL Normal 0.5 - 1.0 [facility] Comment on above: Performed By: #### 2 26958 ####[facility],[address] [place] [address] 78007 GFR/1.73 sq M predicted among non-blacks MDRD (S/P/Bld) [Vol rate/Area] mL/min/{1.73_m2} Normal 60 - 999 [facility] Comment on above: Result Comment: ACCO RDING TO THE NATIONAL KIDNEY DISEASE EDUCATION PROGRAM(NKDE), A NORMAL eGFR IS A VALUE GREATER THAN OR EQUAL TO 60 ML/MIN/1.73 SQ METERS. CHRONIC KIDNEY DISEASE: <60mL/MIN/1.73 SQ METERS KIDNEY FAILURE: <15mL/MIN/1.73 SQ METERS THIS TEST SHOULD ONLY BE USED FOR PATIENTS 18 YEARS OF AGE AND OLDER. Performed By: #### 2 87460 ####[facility],[address] [place] [address] 35850 GFR/1.73 sq M predicted among non-blacks MDRD (S/P/Bld) [Vol rate/Area] Normal [facility] Comment on above: Result Comment: COMP REHENSIVE METABOLIC PANEL Performed By: #### 2 57182 ####[facility],[address] [place] [address] 16167 Globulin (S) [Mass/Vol] 3.8 g/dL Normal 1.5 - 3.8 [facility] Comment on above: Performed By: #### 2 87074 ####[facility],[address] [place] [address] 10248 Glucose [Mass/Vol] 104 mg/dL Normal 74 - 106 [facility] Comment on above: Performed By: #### 2 63968 ####[facility],[address] [place] [address] 24967 Potassium [Moles/Vol] 4.0 mmol/L Normal 3.5 - 5.1 [facility] Comment on above: Performed By: #### 2 79080 ####[facility],[address] [place] [address] 18703 Protein [Mass/Vol] 7.0 g/dL Normal 6.4 - 8.2 [facility] Comment on above: Performed By: #### 2 73045 ####[facility],[address] [place] [address] 41027 Sodium [Moles/Vol] 136 mmol/L Normal 136 - 145 [facility] Comment on above: Performed By: #### 2 44205 ####[facility],[address] [place] [address] 84206 Urea nitrogen [Mass/Vol] 12 mg/dL Normal 7 - 18 [facility] Comment on above: Performed By: #### 2 01529 ####[facility],[address] [place] [address] ABDOMEN/PELVIS [facility] [address] ABDOMEN/PELVIS [place] [address] Patient: FABIENNE FRANKS Phone#: : 1975 Age: 44 Gender: F Pt. Type: ER Account: [id number] Location: [facility] Ordering: DR. MELINA SEGAL Exam Date: 02/22/2020/3:57 Family Phys: ANGEL VASQUEZ Charge Code: [id number] Physician: Oceana Order #: [id number] DLP Dose#: PROCEDURE: CT ABDOMEN/PELVIS WITH CONTRAST COMPARISON: None. INDICATIONS: Abdominal Pain TECHNIQUE: After obtaining the patient's consent, CT images were created with non-ionic intravenous contrast material. All CT scans at this facility use dose modulation, iterative reconstruction, and/or weight based dosing when appropriate to reduce radiation dose to as low as reasonably achievable. IV CONTRAST: Omnipaque 350,80ml TOTAL DOSE: 38.40 CTDIvol(mGy) FINDINGS: LIVER: Normal. No enlargement, atrophy, abnormal density, or significant focal lesion. BILIARY: The gallbladder is distended. There is minimal increase in density in the dependent aspect raising possibility of gravel. PANCREAS: Normal. No lesion, fluid collection, ductal dilatation, or atrophy. SPLEEN: Normal. No enlargement or focal lesion. KIDNEYS: Normal. No mass, obstruction, or calcification. ADRENALS: Normal. No mass or enlargement. AORTA/VASCULAR: Normal. No aneurysm or dissection. RETROPERITONEUM: Normal. No mass or adenopathy. BOWEL/MESENTERY: A small hiatal hernia is present. There has been gastric sleeve resection. ABDOMINAL WALL: Normal. No mass or hernia. URINARY BLADDER: Normal. No visible focal wall thickening, lesion, or calculus. PELVIC NODES: Normal. No adenopathy. PELVIC ORGANS: Tubal ligation clips are present. No visible mass. Pelvic organs appropriate for patient age. Continued Report - Page 2 of 2 Patient: FABIENNE FRANKS Phone#: : 1975 Age: 44 Gender: F Pt. Type: ER Account: [id number] Location: 052 Ordering: DR. MELINA SEGAL Exam Date: 02/22/2020/3:57 Family Phys: ANGEL AVSQUEZ Charge Code: [id number] Physician: Oceana Order #: [id number] DLP Dose#: BONES: Mild degenerative changes of the spine are present. There is disc space narrowing at the L5-S1 level. LUNG BASES: Linear atelectasis is present in the left lung base. No visible pulmonary or pleural disease. OTHER: Negative. CONCLUSION: 1. There is no evidence of acute abdominal or pelvic abnormality. 2. The gallbladder is distended. Sludge/gravel in the dependent aspect the gallbladder cannot be excluded. Dictated by: Lillian Max MD on 02/22/2020 at 9:29 Approved by: Lillian Max MD on 02/22/2020 at 9:42 Normal [facility] LIPASEon 02-22-2020 Lipase [Catalytic activity/Vol] 136.0 U/L Normal 73.0 - 393 [facility] Comment on above: Performed By: #### 2 49030 #### [facility],[address] [place] [address] SERUM QUALon 02-21 EXTERNAL QC DONE? YES Normal [facility] Comment on above: Performed By: #### 2 77222 #### [facility],[address] [place] [address] INTERNAL QC PASS Normal [facility] Comment on above: Performed By: #### 2 73617 #### [facility],[address] [place], [place] [id number] SER Negative Normal NEGATIVE [facility] Comment on above: Performed By: #### 2 17556 #### [facility],[address] [place], [place] [id number] URINALYSISon 02-22-2020 Bilirubin [Mass/Vol] Negative Normal NORMAL: NEGATIVE [facility] Comment on above: Performed By: #### 2 40966 #### [facility],[address] [place], [place] [id number] Blood Negative Normal NORMAL: NEGATIVE [facility] Comment on above: Performed By: #### 2 20325 #### [facility],[address] [place] [address] Clarity (U) clear Normal NORMAL: CLEAR [facility] Comment on above: Performed By: #### 2 29129 #### [facility],[address] [place] [address] Color (U) p.yel Normal NORMAL: YELLOW [facility] Comment on above: Performed By: #### 2 09860 #### [facility],[address] [place] [address] 95508 Glucose [Mass/Vol] NORM Normal NORMAL: NORMAL [facility] Comment on above: Performed By: #### 2 61652 #### [facility],[address] [place] [address] 85899 Ketone Negative Normal NORMAL: NEGATIVE [facility] Comment on above: Performed By: #### 2 52575 #### [facility],[address] [place] [address] 89426 Microscopic NOT INDICATED Normal [facility] Comment on above: Performed By: #### 2 31498 #### [facility],[address] [place] [address] 26137 Nitrite Ql (U) Negative Normal NORMAL: NEGATIVE [facility] Comment on above: Performed By: #### 2 87820 #### [facility],[address] [place] [address] pH (Bld) 7 Normal NORMAL: 5.0-8.0 [facility] Comment on above: Performed By: #### 2 61980 #### [facility],[address] [place] [address] Protein (U) [Mass/Vol] Negative Normal RAISA L: NEGATIVE [facility] Comment on above: Performed By: #### 2 44811 #### [facility],[address] [place] [address] Sp [place] 1.005 Low NORMAL: 1.010-1.030 [facility] Comment on above: Performed By: #### 2 43985 #### [facility],[address] [place] [address] Specimen type Nom (Spec) UNSPECIFIED Normal [facility] Comment on above: Performed By: #### 2 44952 #### [facility],[address] [place] [address] Urobilinog NORM Normal NORMAL: NORMAL [facility] Comment on above: Performed By: #### 2 83792 #### [facility],[address] [place] [address] WBC (Bld) [#/Vol] Negative Normal NORMAL: NEGATIVE [facility] Comment on above: Performed By: #### 2 78169 #### [facility],[address] [place], [place] [address] US RUQ (GB/PANCREAS)on 02-21 US RUQ (GB/PANCREAS) [place] [address] Patient: FABIENNE FRANKS Phone#: : 1975 Age: 44 Gender: F Pt. Type: ER Account: [id number] Location: 2 Ordering: DR. MELINA SEGAL Exam Date: 02/22/2020/6:28 Family Phys: ISABEL DAVIS Charge Code: [id number] Physician: Oceana Order #: [id number] DLP Dose#: PROCEDURE: RUQ (GB) ULTRASOUND COMPARISON: None. INDICATIONS: Abdominal pain FINDINGS: LIVER: Normal. Normal size and echotexture. No significant masses. BILIARY: The gallbladder is distended. There is increased echogenicity in the dependent aspect of the gallbladder with shadowing consistent with gravel/sand. The gallbladder wall is normal in thickness. The common bile duct is mildly dilated at 7.6 millimeters. Intraluminal ductal calculus is not identified. PANCREAS: Normal. No visible mass, abnormal atrophy, or ductal dilatation. RIGHT KIDNEY: Normal. No mass or obstruction. OTHER: Negative. CONCLUSION: 1. The gallbladder is distended. Increased echogenicity in the dependent aspect is consistent with sand/gravel. 2. Common bile duct is mildly distended. Intraductal calculus is not identified. DICTATED BY: LILLIAN MAX MD ON 02/22/2020 AT 9:42 APPROVED BY: LILLIAN MAX MD ON 02/22/2020 AT 9:58 Normal [facility] VITAMIN D, 1,25 - DIHYDROXY [CCL]on 12-27-2019 1,25 Dihydroxy VitD2 <4.0 Normal [facility] Comment on above: Performed By: #### 2 49986 #### [place] [id number] 1,25 Dihydroxy VitD3 74.9 pg/mL Normal [facility] Comment on above: Performed By: #### 2 93785 #### [facility],[address] [place] [address] 51412 Vit D,1,25 DiOH 74.9 pg/mL High 15.0-60.0 [facility] Comment on above: Result Comment: This test was developed and its performance characteristics determined by [facility] [place] ( [place]). It has not been cleared or approved by the FDA. [facility] is regulated under CLIA as qualified to perform high complexity testing. This test is used for clinical purposes. It should not be regarded as investigational or for research. [facility] [address] [place] [address] Omid Palacios III, M.D. [id number] Performed By: #### 2 21066 #### [facility],[address] [place] [address] 52874 VitD, 1,25 Dihydroxyon 12-26 1,25 Dihydroxy VitD2 <4.0 Normal [facility] Comment on above: Performed By: #### 1 25VTD #### [facility] [address] [place] [phone] 1,25 Dihydroxy VitD3 74.9 pg/mL Normal [facility] Comment on above: Performed By: #### 1 25VTD #### [facility] [address] [place] [phone] Vit D,1,25 DiOH High 15.0-60.0 [facility] Comment on above: Result Comment: 74.9 This test was developed and its performance characteristics determined by [facility] [place] ([facility]). It has not been cleared or approved by the FDA. [facility] is regulated under CLIA as qualified to perform high complexity testing. This test is used for clinical purposes. It should not be regarded as investigational or for research. Performed By: #### 1 25VTD #### [facility] [address] [place] [phone] CBC + DIFFon 12-23-2019 Basophils (Bld) [#/Vol] 0.10 x10EE3/UL Normal 0.00 - 0 .10 [facility] Comment on above: Performed By: #### 2 06792 #### [facility],[address] [place] [address] 54851 Basophils/100 WBC (Bld) 1.4 % Normal 0.0 - 2.0 [facility] Comment on above: Performed By: #### 2 84722 #### [facility] [place] [address] 51495 CBC + DIFF Normal [facility] Comment on above: Result Comment: CBC- COMPLETE BLOOD COUNT Performed By: #### 2 70786 #### [facility],[address] [place] [address] 68813 Eosinophils (Bld) [#/Vol] 0.10 x10EE3/UL Normal 0.00 - 0.50 [facility] Comment on above: Performed By: #### 2 50554 #### [facility],[address] [place] [address] 90055 Eosinophils/100 WBC (Bld) 2.0 % Normal 0.0 - 7.0 [facility] Comment on above: Performed By: #### 2 16548 #### [facility],[address] [place] [address] 64095 Erythrocyte distribution width (RBC) [Ratio] 15.2 % Normal 12.0 - 15.6 [facility] Comment on above: Performed By: #### 2 01982 #### [facility],[address] [place] [address] 80755 Hematocrit (Bld) [Volume fraction] 32.6 % Low 34.0 - 46.0 [facility] Comment on above: Performed By: #### 2 75338 #### [facility],[address] [place] [address] 76851 Hemoglobin (Bld) [Mass/Vol] 10.7 g/dL Low 12.0 - 16.0 [facility] Comment on above: Performed By: #### 2 09326 #### [facility],[address] [place] [address] 75461 Lymphocytes (Bld) [#/Vol] 1.40 x10EE3/UL Normal 0.80 - 2.80 [facility] Comment on above: Performed By: #### 2 01600 #### [facility],[address] [place] [address] 17984 Lymphocytes/100 WBC (Bld) 23.9 % Normal 20.0 - 45. 0 [facility] Comment on above: Performed By: #### 2 55754 #### [facility],[address] [place] [address] 50753 MANUAL DIFF N/A Normal [facility] Comment on above: Performed By: #### 2 74888 #### [facility],[address] [place], [place] [phone] MCH (RBC) [Entitic mass] 25 pg Low 27 - 33 [facility] Comment on above: Performed By: #### 2 00656 #### [facility],[address] [place] [address] 71909 MCHC (RBC) [Mass/Vol] 33 X10 3 Normal 32 - 36 [facility] Comment on above: Performed By: #### 2 60944 #### [facility],[address] [place], [place] [phone] MCV (RBC) [Entitic vol] 75 fL Low 80 - 99 [facility] Comment on above: Performed By: #### 2 19017 #### [facility],[address] [place] [address] 70235 Monocytes (Bld) [#/Vol] 0.40 x10EE3/UL Normal 0.20 - 1 .00 [facility] Comment on above: Performed By: #### 2 45947 #### [facility],[address] [place] [address] 45322 MONOS % 7.5 % Normal 0.0 - 10.0 [facility] Comment on above: Performed By: #### 2 33560 #### [facility],[address] [place] [address] 33968 Morphology Gonzales (Bld) [Interp] N/A Normal [facility] Comment on above: Performed By: #### 2 43527 #### [facility],[address] [place] [address] 76305 Neutrophils (Bld) [#/Vol] 3.80 x10EE3/UL Normal 1.50 - 7.10 [facility] Comment on above: Performed By: #### 2 04566 #### [facility],[address] [place] [address] 67117 Neutrophils/100 WBC (Bld) 65.2 % Normal 46.0 - 76. 0 [facility] Comment on above: Performed By: #### 2 58437 #### [facility],[address] [place] [address] 93094 Platelet mean volume (Bld) [Entitic vol] 8.2 fL Normal 6.6 - 10.5 [facility] Comment on above: Result Comment: AUTO MATED DIFFERENTIAL Performed By: #### 2 97491 #### [address] [address] Platelets (Bld) [#/Vol] 294 x10EE3/UL Normal 150 - 450 [facility] Comment on above: Performed By: #### 2 92512 #### [facility],[address] [place] [address] 51843 RBC (Bld) [#/Vol] 4.32 x 10EE6/UL Normal 4.10 - 5.30 [facility] Comment on above: Performed By: #### 2 55686 #### [address] [address] WBC (Bld) [#/Vol] 5.9 x 10EE3/UL Normal 4.5 - 10.8 [facility] Comment on above: Performed By: #### 2 01471 #### [facility],[address] [place] [address] 84322 CMP with eGFRon 12-23-2019 Age - Reported 44 years Normal [facility] Comment on above: Performed By: #### 2 89190 #### [facility],[address] [place] [address] 57338 Albumin [Mass/Vol] 4.0 g/dL Normal 3.4 - 4.8 [facility] Comment on above: Performed By: #### 2 28161 #### [facility],[address] [place] [address] 42587 Albumin/Globulin [Mass ratio] 1.1 {ratio} Normal 0.9 - 1.6 [facility] Comment on above: Performed By: #### 2 76197 #### [facility],[address] [place] [address] 36457 ALK PHOS 75 U/L Normal 38 - 126 [facility] Comment on above: Performed By: #### 2 47341 #### [facility],[address] [place] [address] 97373 ALT/SGPT 9 U/L Normal 8 - 35 [facility] Comment on above: Performed By: #### 2 19758 #### [facility],[address] [place] [address] 65824 Anion gap [Moles/Vol] 13 mmol/L Normal 10 - 20 [facility] Comment on above: Performed By: #### 2 47444 #### [facility],[address] [place] [address] 71092 AST/SGOT 13 U/L Normal 13 - 39 [facility] Comment on above: Performed By: #### 2 60280 #### [facility],[address] [place] [address] 98732 B/C RATIO 25 ratio Normal 0 - 30 [facility] Comment on above: Performed By: #### 2 25052 #### [facility],[address] [place] [address] 52557 Bilirubin [Mass/Vol] 0.5 mg/dL Normal 0.0 - 1.5 [facility] Comment on above: Performed By: #### 2 29264 #### [facility],[address] [place] [address] 76909 Calcium [Mass/Vol] 9.8 mg/dL Normal 8.6 - 10.2 [facility] Comment on above: Performed By: #### 2 18553 #### [facility],[address] [place] [address] 54547 Chloride [Moles/Vol] 105 mmol/L Normal 98 - 107 [facility] Comment on above: Performed By: #### 2 14336 #### [facility],[address] [place] [address] 32495 CO2 [Moles/Vol] 25.0 mmol/L Normal 21.0 - 31.0 [facility] Comment on above: Performed By: #### 2 48720 #### [facility],[address] [place] [address] 66611 Creatinine [Mass/Vol] 0.6 mg/dL Normal 0.6 - 1.2 [facility] Comment on above: Performed By: #### 2 39252 #### [facility],[address] [place] [address] 94311 GFR/1.73 sq M predicted among non-blacks MDRD (S/P/Bld) [Vol rate/Area] Normal [facility] Comment on above: Result Comment: COMP REHENSIVE METABOLIC PANEL Performed By: #### 2 19659 #### [facility],[address] [place] [address] 01149 GFR/1.73 sq M predicted among non-blacks MDRD (S/P/Bld) [Vol rate/Area] mL/min/{1.73_m2} Normal 60 - 999 [facility] Comment on above: Performed By: #### 2 68645 #### [facility],[address] [place] [address] 44448 Result Comment: ACCO RDING TO THE NATIONAL KIDNEY DISEASE EDUCATION PROGRAM(NKDE), A NORMAL eGFR IS A VALUE GREATER THAN OR EQUAL TO 60 ML/MIN/1.73 SQ METERS. CHRONIC KIDNEY DISEASE: <60mL/MIN/1.73 SQ METERS KIDNEY FAILURE: <15mL/MIN/1.73 SQ METERS THIS TEST SHOULD ONLY BE USED FOR PATIENTS 18 YEARS OF AGE AND OLDER. Globulin (S) [Mass/Vol] 3.5 g/dL Normal 1.5 - 3.8 [facility] Comment on above: Performed By: #### 2 95831 #### [facility],[address] [place] [address] 35320 Glucose [Mass/Vol] 79 mg/dL Normal 74 - 106 [facility] Comment on above: Performed By: #### 2 81152 #### [facility],[address] [place] [address] 08083 Potassium [Moles/Vol] 3.8 mmol/L Normal 3.5 - 5.1 [facility] Comment on above: Performed By: #### 2 90754 #### [facility],[address] [place] [address] 44228 Protein [Mass/Vol] 7.5 g/dL Normal 6.4 - 8.3 [facility] Comment on above: Performed By: #### 2 03762 #### [facility],[address] [place] [address] 45930 Sodium [Moles/Vol] 139 mmol/L Normal 136 - 145 [facility] Comment on above: Performed By: #### 2 84589 #### [facility],[address] [place] [address] 66537 Urea nitrogen [Mass/Vol] 15 mg/dL Normal 6 - 20 [facility] Comment on above: Performed By: #### 2 72450 #### [facility],[address] [place] [address] 36799 LIPID PROFILEon 12-23-2019 Cholesterol [Mass/Vol] 177 mg/dL Normal 0 - 200 [facility] Comment on above: Performed By: #### 2 24735 #### [facility],[address] [place] [address] 66633 Cholesterol in HDL [Mass/Vol] 52 mg/dL Normal 40 - 60 [facility] Comment on above: Performed By: #### 2 62415 #### [facility],[address] [place] [address] 52705 Cholesterol in LDL [Mass/Vol] 109 mg/dL Normal 0 - 129 [facility] Comment on above: Performed By: #### 2 54023 #### [facility],[address] [place] [address] 15112 Cholesterol.total/Choleste rol in HDL [Mass ratio] 3.4 {ratio} Normal 0.0 - 5.0 [facility] Comment on above: Performed By: #### 2 80813 #### [facility],[address] [place] [address] 86661 Lipid 1996 panel Normal [facility] Comment on above: Result Comment: LIPI D PROFILE Performed By: #### 2 18975 #### [facility],[address] [place] [address] 41286 Triglyceride [Mass/Vol] 78 mg/dL Normal 0 - 150 [facility] Comment on above: Performed By: #### 2 87864 #### [facility],[address] [place] [address] 67447 VITAMIN B-12on 12-23-2019 Cobalamin (Vitamin B12) [Mass/Vol] 215 pg/mL Normal 180 - 914 [facility] Comment on above: Performed By: #### 2 81577 #### [facility],[address] [place] [address] 73054 DORSAL SPINE 2 VIEWSon 11-24 DORSAL SPINE 2 VIEWS [place] [address] Patient: FABIENNE FRANKS Phone#: : 1975 Age: 44 Gender: F Pt. Type: Out Account: [id number] Location: [facility] Ordering: ISABEL DAVIS Exam Date: 11/25/2019/15:47 Family Phys: ANGEL VASQUEZ Charge Code: [id number] Physician: Oceana Order #: [id number] [facility] Dose#: PROCEDURE: X-RAY DORSAL SPINE 2 VIEWS COMPARISON: None. INDICATIONS: Chronic Bilateral Thoracic Back Pain. FINDINGS: BONES: Limited view of T1 due to overlapping osseous structures. Otherwise, vertebral bodies are maintained in height. There is normal alignment. There are osteophyte formations present. DISC SPACES: There is disc height loss throughout the thoracic spine. PARASPINOUS: Negative. No paraspinous abnormality is seen. OTHER: Negative. CONCLUSION: 1. Degenerative changes of the thoracic spine. Dictated by: Berenice Paula MD on 11/25/2019 at 17:51 Approved by: Berenice Paula MD on 11/25/2019 at 17:51 Normal [facility] Culture, urine Bacteria identified Cx Nom (U) Staphylococcus saprophyticus [facility] Work Phone: Vital Signs Date Time Vital Sign Value Performing Clinician Facility 07-20-2024 10:08-0400 Body temperature 98.6 [degF] Andreas Calvert SCREENING TECH-C Work Phone: [phone](151)[phone] [place] [address] 07-20-2024 10:08-0400 Body weight 122.01 kg Andreas Calvert SCREENING TECH-C Work Phone: 4(431)449-644892 [place] [address] 07-20-2024 10:08-0400 Diastolic blood pressure 77 mm[Hg] Andreas Calvert SCREENING TECH-C Work Phone: 8(981)612-283692 [place] [address] 07-20-2024 10:08-0400 Heart rate 106 /min Andreas Calvert SCREENING TECH-C Work Phone: 9(137)232-884592 [place] [address] 07-20-2024 10:08-0400 Respiratory rate 16 /min Andreas Calvert SCREENING TECH-C Work Phone: 6(667)619-334992 [place] [address] 07-20-2024 10:08-0400 SaO2% (BldA) [Mass fraction] 96 % Andreas Calvert SCREENING TECH-C Work Phone: [facility] 07-20-2024 10:08-0400 Systolic blood pressure 134 mm[Hg] Andreas Calvert SCREENING TECH-C Work Phone: 3(789)876-429799 [address] 06-29-2024 07:09-0400 Body height 165.1 cm Andreas Calvert SCREENING TECH-C Work Phone: 3(480)397-707492 [place] [address] 06-29-2024 07:09-0400 Body weight 122.46 kg Andreas Calvert SCREENING TECH-C Work Phone: 9(771)213-042108 [place] [address] 06-28-2024 08:09-0400 Body mass index (BMI) [Ratio] 44.9 kg/m2 Andreas Calvert SCREENING TECH-C Work Phone: 5(883)[phone] [place] [address] 06-27-2024 18:59-0400 Body temperature 98.4 [degF] Andreas Calvert SCREENING TECH-C Work Phone: 1(895)[phone] [place] [address] 06-27-2024 18:59-0400 Diastolic blood pressure 74 mm[Hg] Andreas Calvert SCREENING TECH-C Work Phone: 0(133)664-816908 [place] [address] 06-27-2024 18:59-0400 Heart rate 89 /min Andreas Calvert SCREENING TECH-C Work Phone: 9(393)480-085308 [place] [address] 06-27-2024 18:59-0400 Respiratory rate 18 /min Andreas Calvert SCREENING TECH-C Work Phone: 9(281)390-208308 [place] [address] 06-27-2024 18:59-0400 SaO2% (BldA) [Mass fraction] 97 % Andreas Calvert SCREENING TECH-C Work Phone: 6(749)757-287808 [place] [address] 06-27-2024 18:59-0400 Systolic blood pressure 138 mm[Hg] Andreas Calvert SCREENING TECH-C Work Phone: 4(955)316-262608 [place] [address] 06-27-2024 14:00-0400 Body height 165.1 cm Andreas Calvert SCREENING TECH-C Work Phone: 5(948)228-925408 [place] [address] 06-27-2024 14:00-0400 Body mass index (BMI) [Ratio] 45.1 kg/m2 Andreas Calvert SCREENING TECH-C Work Phone: 4(716)408-203408 [place] [address] 06-27-2024 14:00-0400 Body weight 122.96 kg Andreas Calvert SCREENING TECH-C Work Phone: 0(424)391-341508 [place] [address] 06-21-2024 16:38-0400 Body temperature 98.2 [degF] Andreas Calvert SCREENING TECH-C Work Phone: 6(433)400-101008 [place] [address] 06-21-2024 16:38-0400 Diastolic blood pressure 84 mm[Hg] Andreas Calvert SCREENING TECH-C Work Phone: 8(603)361-085308 [place] [address] 06-21-2024 16:38-0400 Heart rate 73 /min Andreas Calvert SCREENING TECH-C Work Phone: 6(766)361-724908 [place] [address] 06-21-2024 16:38-0400 Respiratory rate 14 /min Andreas Calvert SCREENING TECH-C Work Phone: 6(631)121-845508 [place] [address] 06-21-2024 16:38-0400 SaO2% (BldA) [Mass fraction] 96 % Andreas Calvert SCREENING TECH-C Work Phone: 6(049)746-741808 [place] [address] 06-21-2024 16:38-0400 Systolic blood pressure 126 mm[Hg] Andreas Calvert SCREENING TECH-C Work Phone: 0(271)325-347908 [place] [address] 06-08-2024 14:40-0400 Body temperature 98.2 [degF] Andreas Calvert SCREENING TECH-C Work Phone: 1(216)000-021308 [place] [address] 06-08-2024 14:40-0400 Body weight 122.46 kg Andreas Calvert SCREENING TECH-C Work Phone: 5(436)019-425408 [place] [address] 06-08-2024 14:40-0400 Diastolic blood pressure 76 mm[Hg] Andreas Calvert SCREENING TECH-C Work Phone: 4(161)373-244108 [place] [address] 06-08-2024 14:40-0400 Heart rate 80 /min Andreas Calvert SCREENING TECH-C Work Phone: 3(961)254-364008 [place] [address] 06-08-2024 14:40-0400 Respiratory rate 14 /min Andreas Calvert SCREENING TECH-C Work Phone: 1(001)096-226708 [place] [address] 06-08-2024 14:40-0400 SaO2% (BldA) [Mass fraction] 98 % Andreas Calvert SCREENING TECH-C Work Phone: 8(224)650-593108 [place] [address] 06-08-2024 14:40-0400 Systolic blood pressure 119 mm[Hg] Andreas Calvert SCREENING TECH-C Work Phone: 2(692)825-634808 [place] [address] 03-17-2024 08:30-0500 Body temperature 97 [degF] Andreas Calvert SCREENING TECH-C Work Phone: 5(011)029-030608 [place] [address] 03-17-2024 08:30-0500 Diastolic blood pressure 83 mm[Hg] Andreas Calvert SCREENING TECH-C Work Phone: 3(153)862-476908 [place] [address] 03-17-2024 08:30-0500 Heart rate 75 /min Andreas Calvert SCREENING TECH-C Work Phone: 9(948)640-268508 [place] [address] 03-17-2024 08:30-0500 Respiratory rate 16 /min Andreas Calvert SCREENING TECH-C Work Phone: 8(706)192-034108 [place] [address] 03-17-2024 08:30-0500 SaO2% (BldA) [Mass fraction] 95 % Andreas Calvert SCREENING TECH-C Work Phone: 9(720)489-625808 [place] [address] 03-17-2024 08:30-0500 Systolic blood pressure 127 mm[Hg] Andreas Calvert SCREENING TECH-C Work Phone: 3(894)985-873908 [place] [address] 03-17-2024 07:02-0500 Body height 165.1 cm Andreas Calvert SCREENING TECH-C Work Phone: 9(758)535-352608 [place] [address] 03-17-2024 07:02-0500 Body mass index (BMI) [Ratio] 44.1 kg/m2 Andreas Calvert SCREENING TECH-C Work Phone: 7(743)609-154908 [place] [address] 03-17-2024 07:02-0500 Body weight 120.4 kg Andreas Calvert SCREENING TECH-C Work Phone: 6(098)462-699108 [place] [address] 02-20-2024 14:37-0500 Body temperature 97.8 [degF] Andreas Calvert SCREENING TECH-C Work Phone: 6(884)763-862808 [place] [address] 02-20-2024 14:37-0500 Diastolic blood pressure 62 mm[Hg] Andreas Calvert SCREENING TECH-C Work Phone: 7(820)642-182308 [place] [address] 02-20-2024 14:37-0500 Heart rate 74 /min Andreas Calvert SCREENING TECH-C Work Phone: 9(805)060-752008 [place] [address] 02-20-2024 14:37-0500 Respiratory rate 15 /min Andreas Calvert SCREENING TECH-C Work Phone: 8(504)380-443608 [place] [address] 02-20-2024 14:37-0500 SaO2% (BldA) [Mass fraction] 99 % Andreas Calvert SCREENING TECH-C Work Phone: 4(793)721-633508 [place] [address] 02-20-2024 14:37-0500 Systolic blood pressure 133 mm[Hg] Andreas Calvert SCREENING TECH-C Work Phone: 9(108)195-672608 [place] [address] 02-20-2024 12:34-0500 Body mass index (BMI) [Ratio] 42.3 kg/m2 Andreas Calvert SCREENING TECH-C Work Phone: 9(553)401-926108 [place] [address] 02-20-2024 12:34-0500 Body weight 115.21 kg Andreas Calvert SCREENING TECH-C Work Phone: 8(798)410-015008 [place] [address] 02-10-2024 14:28-0500 Body weight 117.3 kg Andreas Calvert SCREENING TECH-C Work Phone: 2(796)386-472708 [place] [address] 02-10-2024 11:07-0500 Body temperature 97.9 [degF] Andreas Calvert SCREENING TECH-C Work Phone: 1(628)077-990408 [place] [address] 02-10-2024 11:07-0500 Diastolic blood pressure 100 mm[Hg] Andreas Calvert SCREENING TECH-C Work Phone: 3(234)898-611408 [place] [address] 02-10-2024 11:07-0500 Heart rate 105 /min Andreas Calvert SCREENING TECH-C Work Phone: 3(870)962-106508 [place] [address] 02-10-2024 11:07-0500 Respiratory rate 16 /min Andreas Calvert SCREENING TECH-C Work Phone: 9(093)044-231108 [place] [address] 02-10-2024 11:07-0500 SaO2% (BldA) [Mass fraction] 100 % Andreas Calvert SCREENING TECH-C Work Phone: 5(057)823-363408 [place] [address] 02-10-2024 11:07-0500 Systolic blood pressure 133 mm[Hg] Andreas Calvert SCREENING TECH-C Work Phone: 1(166)174-233208 [place] [address] 02-10-2024 06:00-0500 Body mass index (BMI) [Ratio] 43 kg/m2 Andreas Calvert SCREENING TECH-C Work Phone: 8(947)011-602708 [place] [address] 02-08-2024 16:15-0500 Inhaled oxygen concentration 21 % Andreas Calvert SCREENING TECHAihsa Work Phone: [facility] 05-19-2023 00:44-0400 Body temperature 97.9 [degF] Dr. Mynor Garcai Work Phone: [facility] 05-19-2023 00:44-0400 Diastolic blood pressure 68 mm[Hg] Dr. Mynor Garcia Work Phone: [facility] 05-19-2023 00:44-0400 Heart rate 80 /min Dr. Mynor Garcia Work Phone: [facility] 05-19-2023 00:44-0400 Respiratory rate 17 /min Dr. Mynor Garcia Work Phone: [facility] 05-19-2023 00:44-0400 SaO2% (BldA) [Mass fraction] 96 % Dr. Mynor Garcia Work Phone: [facility] 05-19-2023 00:44-0400 Systolic blood pressure 129 mm[Hg] Dr. Mynor Garcia Work Phone: [facility] 05-18-2023 21:43-0400 Body height 165.[address] Mynor Garcia Work Phone: [facility] 05-18-2023 21:43-0400 Body mass index (BMI) [Ratio] 42.8 kg/m2 Dr. Mynor Garcia Work Phone: [facility] 05-18-2023 21:43-0400 Body weight 116.[address] Mynor Garcia Work Phone: [facility] 05-13-2023 08:44-0400 Body height 162.[address] Mynor Garcia Work Phone: [facility] 05-13-2023 08:44-0400 Body weight 117.[address] Mynor Garcia Work Phone: [facility] 05-12-2023 07:33-0400 Body mass index (BMI) [Ratio] 44.4 kg/m2 Dr. Mynor Garcia Work Phone: [facility] 04-06-2023 15:19-0500 Body temperature 98.4 [degF] Dr. Mynor Garcia Work Phone: [facility] 04-06-2023 15:19-0500 Body weight 117.[address] Mynor Garcia Work Phone: [facility] 04-06-2023 15:19-0500 Diastolic blood pressure 78 mm[Hg] Dr. Mynor Garcia Work Phone: [facility] 04-06-2023 15:19-0500 Heart rate 68 /min Dr. Mynor Garcia Work Phone: [facility] 04-06-2023 15:19-0500 Respiratory rate 16 /min Dr. Mynor Garcia Work Phone: [facility] 04-06-2023 15:19-0500 SaO2% (BldA) [Mass fraction] 100 % Dr. Mynor Garcia Work Phone: [facility] 04-06-2023 15:19-0500 Systolic blood pressure 141 mm[Hg] Dr. Mynor Garcia Work Phone: [facility] 03-17-2023 10:18-0500 Body temperature 98.4 [degF] Dr. Mynor Garcia Work Phone: [facility] 03-17-2023 10:18-0500 Body weight 119.[address] Mynor Garcia Work Phone: [facility] 03-17-2023 10:18-0500 Diastolic blood pressure 86 mm[Hg] Dr. Mynor Garcia Work Phone: [facility] 03-17-2023 10:18-0500 Heart rate 68 /min Dr. Mynor Garcia Work Phone: [facility] 03-17-2023 10:18-0500 Respiratory rate 16 /min Dr. Mynor Garcia Work Phone: [facility] 03-17-2023 10:18-0500 SaO2% (BldA) [Mass fraction] 98 % Dr. Mynor Garcia Work Phone: [facility] 03-17-2023 10:18-0500 Systolic blood pressure 134 mm[Hg] Dr. Mynor Garcia Work Phone: [facility] 12-19-2022 15:02-0400 Body height 162.[address] Mynor Garcia Work Phone: [facility] 12-19-2022 15:02-0400 Body mass index (BMI) [Ratio] 44.1 kg/m2 Dr. Mynor Garcia Work Phone: [facility] 12-19-2022 15:02-0400 Body temperature 97.8 [degF] Dr. Mynor Garcia Work Phone: [facility] 12-19-2022 15:02-0400 Body weight 116.[address] Mynor Garcia Work Phone: [facility] 12-19-2022 15:02-0400 Diastolic blood pressure 80 mm[Hg] Dr. Mynor Garcia Work Phone: [facility] 12-19-2022 15:02-0400 Heart rate 78 /min Dr. Mynor Garcia Work Phone: [facility] 12-19-2022 15:02-0400 Respiratory rate 16 /min Dr. Mynor Garcia Work Phone: [facility] 12-19-2022 15:02-0400 SaO2% (BldA) [Mass fraction] 97 % Dr. Mynor Garcia Work Phone: [facility] 12-19-2022 15:02-0400 Systolic blood pressure 122 mm[Hg] Dr. Mynor Garcia Work Phone: [facility] 12-15-2022 14:43-0400 Body height 162.[address] Mynor Garcia Work Phone: [facility] 12-15-2022 14:41-0400 Body mass index (BMI) [Ratio] 43.7 kg/m2 Dr. Mynor Garcia Work Phone: [facility] 12-15-2022 14:41-0400 Body weight 115.[address] Mynor Garcia Work Phone: [facility] 12-15-2022 14:41-0400 Diastolic blood pressure 86 mm[Hg] Dr. Mynor Garcia Work Phone: [facility] 12-15-2022 14:41-0400 Systolic blood pressure 128 mm[Hg] Dr. Mynor Garcia Work Phone: [facility] 12-10-2022 07:17-0400 Respiratory rate 16 /min Dr. Mynor Garcia Work Phone: [facility] 12-10-2022 04:35-0400 Body mass index (BMI) [Ratio] 43.9 kg/m2 Dr. Mynor Garcia Work Phone: [facility] 12-10-2022 04:35-0400 Body temperature 96.7 [degF] Dr. Mynor Garcia Work Phone: [facility] 12-10-2022 04:35-0400 Body weight 116.[address] Mynor Garcia Work Phone: [facility] 12-10-2022 04:35-0400 Diastolic blood pressure 72 mm[Hg] Dr. Mynor Garcia Work Phone: [facility] 12-10-2022 04:35-0400 Heart rate 76 /min Dr. Mynor Garcia Work Phone: [facility] 12-10-2022 04:35-0400 SaO2% (BldA) [Mass fraction] 96 % Dr. Mynor Garcia Work Phone: [facility] 12-10-2022 04:35-0400 Systolic blood pressure 130 mm[Hg] Dr. Mynor Garcia Work Phone: [facility] 10-12-2022 08:26-0400 Body mass index (BMI) [Ratio] 43.7 kg/m2 Dr. Mynor Garcia Work Phone: [facility] 10-12-2022 08:26-0400 Body temperature 97.5 [degF] Dr. Mynor Garcia Work Phone: [facility] 10-12-2022 08:26-0400 Body weight 115.[address] Mynor Garcia Work Phone: [facility] 10-12-2022 08:26-0400 Diastolic blood pressure 83 mm[Hg] Dr. Mynor Garcia Work Phone: [facility] 10-12-2022 08:26-0400 Heart rate 60 /min Dr. Mynor Garcia Work Phone: [facility] 10-12-2022 08:26-0400 Respiratory rate 16 /min Dr. Mynor Garcia Work Phone: [facility] 10-12-2022 08:26-0400 SaO2% (BldA) [Mass fraction] 97 % Dr. Mynor Garcia Work Phone: [facility] 10-12-2022 08:26-0400 Systolic blood pressure 128 mm[Hg] Dr. Mynor Garcia Work Phone: [facility] 09-23-2022 14:16-0400 Body mass index (BMI) [Ratio] 42.9 kg/m2 Dr. Mynor Garcia Work Phone: [facility] 09-23-2022 14:16-0400 Body temperature 97.8 [degF] Dr. Mynor Garcia Work Phone: [facility] 09-23-2022 14:16-0400 Body weight 113.[address] Mynor Garcia Work Phone: [facility] 09-23-2022 14:16-0400 Diastolic blood pressure 82 mm[Hg] Dr. Mynor Garcia Work Phone: [facility] 09-23-2022 14:16-0400 Heart rate 89 /min Dr. Mynor Garcia Work Phone: [facility] 09-23-2022 14:16-0400 Respiratory rate 16 /min Dr. Mynor Garcia Work Phone: [facility] 09-23-2022 14:16-0400 SaO2% (BldA) [Mass fraction] 98 % Dr. Mynor Garcia Work Phone: [facility] 09-23-2022 14:16-0400 Systolic blood pressure 120 mm[Hg] Dr. Mynor Garcia Work Phone: [facility] 09-03-2022 15:47-0400 Body mass index (BMI) [Ratio] 42.5 kg/m2 Dr. Mynor Garcia Work Phone: [facility] 09-03-2022 15:47-0400 Body temperature 97.8 [degF] Dr. Mynor Garcia Work Phone: [facility] 09-03-2022 15:47-0400 Body weight 112.[address] Mynor Garcia Work Phone: [facility] 09-03-2022 15:47-0400 Diastolic blood pressure 78 mm[Hg] Dr. Mynor Garcai Work Phone: [facility] 09-03-2022 15:47-0400 Heart rate 92 /min Dr. Mynor Garcia Work Phone: [facility] 09-03-2022 15:47-0400 Respiratory rate 18 /min Dr. Mynor Garcia Work Phone: [facility] 09-03-2022 15:47-0400 SaO2% (BldA) [Mass fraction] 98 % Dr. Mynor Garcia Work Phone: [facility] 09-03-2022 15:47-0400 Systolic blood pressure 118 mm[Hg] Dr. Mynor Garcia Work Phone: [facility] 07-14-2022 14:20-0400 Body height 162.[address] Mynor Garcia Work Phone: [facility] 07-14-2022 14:20-0400 Body mass index (BMI) [Ratio] 43.2 kg/m2 Dr. Mynor Garcia Work Phone: [facility] 07-14-2022 14:20-0400 Body temperature 98.3 [degF] Dr. Mynor Garcia Work Phone: [facility] 07-14-2022 14:20-0400 Body weight 114.[address] Mynor Garcia Work Phone: [facility] 07-14-2022 14:20-0400 Diastolic blood pressure 98 mm[Hg] Dr. Mynor Garcia Work Phone: [facility] 07-14-2022 14:20-0400 Heart rate 78 /min Dr. Mynor Garcia Work Phone: [facility] 07-14-2022 14:20-0400 Respiratory rate 16 /min Dr. Mynor Garcia Work Phone: [facility] 07-14-2022 14:20-0400 SaO2% (BldA) [Mass fraction] 99 % Dr. Mynor Garcia Work Phone: [facility] 07-14-2022 14:20-0400 Systolic blood pressure 130 mm[Hg] Dr. Mynor Garcia Work Phone: [facility] 04-16-2022 14:37-0500 Body mass index (BMI) [Ratio] 43.4 kg/m2 Dr. Mynor Garcia Work Phone: [facility] 04-16-2022 14:37-0500 Body weight 114.[address] Mynor Garcia Work Phone: [facility] 04-16-2022 14:37-0500 Diastolic blood pressure 84 mm[Hg] Dr. Mynor Garcia Work Phone: [facility] 04-16-2022 14:37-0500 Systolic blood pressure 126 mm[Hg] Dr. Mynor Garcia Work Phone: [facility] 12-19-2021 15:52-0400 Body height 162.[address] Mynor Garcia Work Phone: [facility] Work Phone: 12-19-2021 15:52-0400 Body mass index (BMI) [Ratio] 44.8 kg/m2 Dr. Mynor Garcia Work Phone: [facility] Work Phone: 12-19-2021 15:52-0400 Body temperature 97.9 [degF] Dr. Mynor Garcia Work Phone: [facility] Work Phone: 12-19-2021 15:52-0400 Body weight 118.[address] Mynor Garcia Work Phone: [facility] Work Phone: 12-19-2021 15:52-0400 Diastolic blood pressure 74 mm[Hg] Dr. Mynor Garcia Work Phone: [facility] Work Phone: 12-19-2021 15:52-0400 Heart rate 73 /min Dr. Mynor Garcia Work Phone: [facility] Work Phone: 12-19-2021 15:52-0400 Respiratory rate 14 /min Dr. Mynor Garcia Work Phone: [facility] Work Phone: 12-19-2021 15:52-0400 SaO2% (BldA) [Mass fraction] 99 % Dr. Mynor Garcia Work Phone: [facility] Work Phone: 12-19-2021 15:52-0400 Systolic blood pressure 122 mm[Hg] Dr. Mynor Garcia Work Phone: [facility] Work Phone: 12-10-2021 15:35-0400 Body mass index (BMI) [Ratio] 44.6 kg/m2 Dr. Mynor Garcia Work Phone: [facility] Work Phone: 12-10-2021 15:35-0400 Body weight 117.[address] Mynor Garcia Work Phone: [facility] Work Phone: 12-10-2021 15:35-0400 Diastolic blood pressure 75 mm[Hg] Dr. Mynor Garcia Work Phone: [facility] Work Phone: 12-10-2021 15:35-0400 Systolic blood pressure 118 mm[Hg] Dr. Mynor Garcia Work Phone: [facility] Work Phone: 11-27-2021 15:11-0400 Body mass index (BMI) [Ratio] 44.3 kg/m2 Dr. Mynor Garcia Work Phone: [facility] Work Phone: 11-27-2021 15:11-0400 Body weight 117.[address] Mynor Garcia Work Phone: [facility] Work Phone: 11-27-2021 15:11-0400 Diastolic blood pressure 84 mm[Hg] Dr. Mynor Garcia Work Phone: [facility] Work Phone: 11-27-2021 15:11-0400 Systolic blood pressure 127 mm[Hg] Dr. Mynor Garcia Work Phone: [facility] Work Phone: 10-30-2021 11:55-0400 Body mass index (BMI) [Ratio] 42.8 kg/m2 Dr. Mynor Garcia Work Phone: [facility] Work Phone: 10-30-2021 11:55-0400 Body weight 113.[address] Mynor Garcia Work Phone: [facility] Work Phone: 10-30-2021 11:55-0400 Diastolic blood pressure 82 mm[Hg] Dr. Mynor Garcia Work Phone: [facility] Work Phone: 10-30-2021 11:55-0400 Systolic blood pressure 112 mm[Hg] Dr. Mynor Garcia Work Phone: [facility] Work Phone: 10-18-2021 07:47-0400 Body temperature 98 [degF] Dr. Mynor Garcia Work Phone: [facility] Work Phone: 10-18-2021 07:47-0400 Diastolic blood pressure 70 mm[Hg] Dr. Mynor Garcia Work Phone: [facility] Work Phone: 10-18-2021 07:47-0400 Heart rate 68 /min Dr. Mynor Garcia Work Phone: [facility] Work Phone: 10-18-2021 07:47-0400 Respiratory rate 16 /min Dr. Mynor Garcia Work Phone: [facility] Work Phone: 10-18-2021 07:47-0400 SaO2% (BldA) [Mass fraction] 94 % Dr. Mynor Garcia Work Phone: [facility] Work Phone: 10-18-2021 07:47-0400 Systolic blood pressure 110 mm[Hg] Dr. Mynor Garcia Work Phone: [facility] Work Phone: 10-18-2021 06:48-0400 Inhaled oxygen flow rate 2 L/min Dr. Mynor Garcia Work Phone: [facility] Work Phone: 10-17-2021 17:59-0400 Body mass index (BMI) [Ratio] 43.4 kg/m2 Dr. Mynor Garcia Work Phone: [facility] Work Phone: 10-17-2021 17:59-0400 Body weight 114.[address] Mynor Garcia Work Phone: [facility] Work Phone: 09-26-2021 15:20-0400 Body mass index (BMI) [Ratio] 44.1 kg/m2 Dr. Mynor Garcia Work Phone: [facility] Work Phone: 09-26-2021 15:20-0400 Body weight 116.[address] Mynor Garcia Work Phone: [facility] Work Phone: 09-26-2021 15:20-0400 Diastolic blood pressure 82 mm[Hg] Dr. Mynor Garcia Work Phone: [facility] Work Phone: 09-26-2021 15:20-0400 Systolic blood pressure 118 mm[Hg] Dr. Mynor Garcia Work Phone: [facility] Work Phone: 09-08-2021 11:03-0400 Body temperature 98.2 [degF] Dr. Mynor Garcia Work Phone: [facility] Work Phone: 09-08-2021 11:03-0400 Diastolic blood pressure 82 mm[Hg] Dr. Mynor Garcia Work Phone: [facility] Work Phone: 09-08-2021 11:03-0400 Heart rate 93 /min Dr. Mynor Garcia Work Phone: [facility] Work Phone: 09-08-2021 11:03-0400 Respiratory rate 12 /min Dr. Mynor Garcia Work Phone: [facility] Work Phone: 09-08-2021 11:03-0400 SaO2% (BldA) [Mass fraction] 98 % Dr. Mynor Garcia Work Phone: [facility] Work Phone: 09-08-2021 11:03-0400 Systolic blood pressure 134 mm[Hg] Dr. Mynor Garcia Work Phone: [facility] Work Phone: 08-25-2021 12:01-0400 Body temperature 98.6 [degF] Dr. Myonr Garcia Work Phone: [facility] Work Phone: 08-25-2021 12:01-0400 Diastolic blood pressure 74 mm[Hg] Dr. Mynor Garcia Work Phone: [facility] Work Phone: 08-25-2021 12:01-0400 Heart rate 85 /min Dr. Mynor Garcia Work Phone: [facility] Work Phone: 08-25-2021 12:01-0400 Respiratory rate 14 /min Dr. Mynor Garcia Work Phone: [facility] Work Phone: 08-25-2021 12:01-0400 SaO2% (BldA) [Mass fraction] 97 % Dr. Mynor Garcia Work Phone: [facility] Work Phone: 08-25-2021 12:01-0400 Systolic blood pressure 128 mm[Hg] Dr. Mynor Garcia Work Phone: [facility] Work Phone: 07-16-2021 15:43-0400 Body height 162.[address] Mynor Garcia Work Phone: [facility] Work Phone: 07-16-2021 15:43-0400 Body mass index (BMI) [Ratio] 43.6 kg/m2 Dr. Mynor Garcia Work Phone: [facility] Work Phone: 07-16-2021 15:43-0400 Body weight 115.[address] Mynor Garcia Work Phone: [facility] Work Phone: 07-16-2021 15:43-0400 Diastolic blood pressure 84 mm[Hg] Dr. Mynor Garcia Work Phone: [facility] Work Phone: 07-16-2021 15:43-0400 Systolic blood pressure 128 mm[Hg] Dr. Mynor Garcia Work Phone: [facility] Work Phone: 07-04-2021 15:50-0400 Body mass index (BMI) [Ratio] 43.7 kg/m2 Dr. Mynor Garcia Work Phone: [facility] Work Phone: 07-04-2021 15:50-0400 Body weight 115.[address] Mynor Garcia Work Phone: [facility] Work Phone: 07-04-2021 15:50-0400 Diastolic blood pressure 90 mm[Hg] Dr. Mynor Garcia Work Phone: [facility] Work Phone: 07-04-2021 15:50-0400 Systolic blood pressure 112 mm[Hg] Dr. Mynor Garcia Work Phone: [facility] Work Phone: 06-26-2021 16:42-0400 Body mass index (BMI) [Ratio] 43.6 kg/m2 Dr. Mynor Garcia Work Phone: [facility] [facility] Work Phone: 06-26-2021 16:42-0400 Body temperature 97.7 [degF] Dr. Mynor Garcia Work Phone: [facility] Work Phone: 06-26-2021 16:42-0400 Body weight 115.[address] Mynor Garcia Work Phone: [facility] Work Phone: 06-26-2021 16:42-0400 Diastolic blood pressure 80 mm[Hg] Dr. Mynor Garcia Work Phone: [facility] Work Phone: 06-26-2021 16:42-0400 Heart rate 71 /min Dr. Mynor Garcia Work Phone: [facility] Work Phone: 06-26-2021 16:42-0400 Respiratory rate 18 /min Dr. Mynor Garcia Work Phone: [facility] Work Phone: 06-26-2021 16:42-0400 SaO2% (BldA) [Mass fraction] 98 % Dr. Mynor Garcia Work Phone: [facility] Work Phone: 06-26-2021 16:42-0400 Systolic blood pressure 116 mm[Hg] Dr. Mynor Garcia Work Phone: [facility] Work Phone: 06-07-2021 15:40-0400 Body mass index (BMI) [Ratio] 43.9 kg/m2 Dr. Mynor Garcia Work Phone: [facility] Work Phone: 06-07-2021 15:40-0400 Body weight 116.[address] Mynor Garcia Work Phone: [facility] Work Phone: 06-07-2021 15:40-0400 Diastolic blood pressure 70 mm[Hg] Dr. Mynor Garcia Work Phone: [facility] Work Phone: 06-07-2021 15:40-0400 Systolic blood pressure 100 mm[Hg] Dr. Mynor Garcia Work Phone: [facility] Work Phone: 06-07-2021 15:40-0400 Body height 162.[address] Mynor Garcia Work Phone: [facility] Work Phone: 06-07-2021 15:40-0400 Body mass index (BMI) [Ratio] 43.9 kg/m2 Dr. Mynor Garcia Work Phone: [facility] Work Phone: 06-07-2021 15:40-0400 Body weight 116.[address] Mynor Garcia Work Phone: [facility] Work Phone: 06-07-2021 15:40-0400 Diastolic blood pressure 70 mm[Hg] Dr. Mynor Garcia Work Phone: [facility] Work Phone: 06-07-2021 15:40-0400 Systolic blood pressure 100 mm[Hg] Dr. Mynor Garcia Work Phone: [facility] Work Phone: 05-18-2021 10:06-0400 Body temperature 98.2 [degF] Dr. Mynor Garcia Work Phone: [facility] Work Phone: 05-18-2021 10:06-0400 Diastolic blood pressure 72 mm[Hg] Dr. Mynor Garcia Work Phone: [facility] Work Phone: 05-18-2021 10:06-0400 Heart rate 64 /min Dr. Mynor Garcia Work Phone: [facility] Work Phone: 05-18-2021 10:06-0400 Respiratory rate 16 /min Dr. Mynor Garcia Work Phone: [facility] Work Phone: 05-18-2021 10:06-0400 SaO2% (BldA) [Mass fraction] 99 % Dr. Mynor Garcia Work Phone: [facility] Work Phone: 05-18-2021 10:06-0400 Systolic blood pressure 128 mm[Hg] Dr. Mynor Garcia Work Phone: [facility] Work Phone: 05-18-2021 10:06-0400 Body temperature 98.2 [degF] Dr. Mynor Garcia Work Phone: [facility] Work Phone: 05-18-2021 10:06-0400 Diastolic blood pressure 72 mm[Hg] Dr. Mynor Garcia Work Phone: [facility] Work Phone: 05-18-2021 10:06-0400 Heart rate 64 /min Dr. Mynor Garcia Work Phone: [facility] Work Phone: 05-18-2021 10:06-0400 Respiratory rate 16 /min Dr. Mynor Garcia Work Phone: [facility] Work Phone: 05-18-2021 10:06-0400 SaO2% (BldA) [Mass fraction] 99 % Dr. Mynor Garcia Work Phone: [facility] Work Phone: 05-18-2021 10:06-0400 Systolic blood pressure 128 mm[Hg] Dr. Mynor Garcia Work Phone: [facility] Work Phone: Encounters Encounter Date Encounter Type Care Provider Facility Start: 01-10-2025 ambulatory AMUDHA TERRI Selby lity:[facility] Start: 01-04-2025 End: 01-04-2025 ambulatory AMEMPAM PAZROBYNCHINAMY Facility:[facility] Start: 12-26-2024 End: 12-26-2024 Emergency department patient visit Andreas Chuader [facility] Facility:[facility] Start: 12-25-2024 End: 12-25-2024 ambulatory SCOT BARRON Facility:[facility] Start: 12-08-2024 End: 12-08-2024 ambulatory CASANDRALISETH KHARIJACLYN Facility:[facility] Start: 10-27-2024 End: 10-27-2024 Telemedicine consultation with patient Jordan Ayala MD Work Phone: Rheumatology/Pulmonary Start: 10-27-2024 End: 10-27-2024 ambulatory Jordan Ayala MD Work Phone: Rheumatology/Pulmonary Comment on above: Seropositive rheumat oid arthritis (HCC) (Primary Dx); Acute cystitis without hematuria; Sjogren's syndrome with keratoconjunctivitis sicca (HCC); Long-term use of hydroxychloroquine Start: 10-07-2024 End: 10-07-2024 ambulatory JORDAN AYALA Facility:[facility] Start: 10-07-2024 End: 10-07-2024 Subsequent hospital visit by physician Xr Main A21 Radiology Comment on above: Acute anterior uveit is [H20.00] Start: 10-07-2024 End: 10-07-2024 ambulatory JORDAN AYALA Facility:[facility] Start: 07-20-2024 End: 07-20-2024 Patient encounter procedure Elizabeth BECERRIL -[facility] Work Phone: Start: 07-20-2024 End: 07-20-2024 ambulatory Andreas Calvert SCREENING TECH-C Work Phone: [facility] Work Phone: Start: 07-11-2024 ambulatory Andreas Calvert [facility] Facility :[facility] Start: 06-29-2024 ambulatory Andreas Calvert [facility] Facility :[facility] Start: 06-29-2024 Non-patient / Non-visit Dr. Marck vicente MD -[facility] Start: 06-29-2024 End: 06-29-2024 Admission to same day surgery center Dr. Marck Thompson MD -Flaker Tender/Special Procedures Work Phone: Start: 06-29-2024 End: 06-29-2024 ambulatory Marck Thompson Facility:[facility] Start: 06-27-2024 End: 06-27-2024 Emergency department patient visit Andreas Calvert SCREENING TECH-C Work Phone: -Emergency Department Work Phone: Start: 06-21-2024 End: 06-21-2024 Patient encounter procedure Tomas Lewis [place] -[facility] Work Phone: Start: 06-21-2024 End: 06-21-2024 ambulatory Andreas Chuader VSC Facility:[facility] Start: 06-21-2024 End: 06-21-2024 ambulatory Andreas Calvert [facility] Facility:[facility] Start: 06-08-2024 End: 06-08-2024 Patient encounter procedure Elizabeth BECERRIL -[facility] Work Phone: Start: 06-08-2024 End: 06-08-2024 ambulatory Andreas Chuader VSC Facility:[facility] Start: 05-17-2024 End: 05-17-2024 ambulatory Andreas Calvert SCREENING TECH-C Work Phone: [facility] Work Phone: Start: 05-17-2024 End: 05-17-[address] Mynor Garcia MD -Cat Scan, [facility] Work Phone: Start: 05-17-2024 End: 05-17-2024 Dr. Mynor Garcia MD -Cat Scan, [facility] Work Phone: Start: 05-16-2024 Non-patient / Non-visit Dr. Marck vicente MD -[facility] Start: 05-16-2024 End: 05-17-2024 ambulatory Andreas Calvert SCREENING TECH-C Work Phone: [facility] Work Phone: Start: 05-16-2024 End: 05-16-2024 Patient encounter procedure Elizabeth Melendez PA -Cardiovascu lar Services Work Phone: Start: 05-16-2024 End: 05-16-2024 Dr. Marck Thompson MD -[facility] Start: 05-16-2024 End: 05-16-2024 ambulatory Elizabeth Melendez Facility:[facility] Start: 04-25-2024 End: 04-25-2024 Patient encounter procedure Brian Zuniga -[facility] Work Phone: Start: 04-25-2024 End: 04-25-2024 Brianjuan alberto Zuniga -[facility] Work Phone: Start: 04-25-2024 End: 04-25-2024 ambulatory Brianjuan alberto Zuniga Facility:[facility] Start: 04-11-2024 End: 04-11-2024 Patient encounter procedure Brian Zuniga DO -Laboratory, [facility] Start: 04-11-2024 End: 04-11-2024 Brian Nadia DO -Laboratory, [facility] Start: 04-11-2024 End: 04-11-2024 ambulatory Brian Zungia Facility:[facility] Start: 04-07-2024 End: 04-07-2024 Patient encounter procedure Brian Zuniga -[facility] Work Phone: Start: 04-07-2024 End: 04-07-2024 Brianjuan alberto Zuniga -[facility] Work Phone: Start: 04-07-2024 End: 04-07-2024 ambulatory Brian Zuniga Facility:[facility] Start: 03-25-2024 End: 03-25-2024 ambulatory Andreas Calvert NP-C Work Phone: [facility] Work Phone: Start: 03-25-2024 End: 03-25-[address] Omar Betancourt MD -Speech Therapy Work Phone: Start: 03-25-[address] Benny Betancourt MD -Speech Therapy Work Phone: Start: 03-25-2024 Dr. Omar Betancourt MD -Speech Therapy Work Phone: Start: 03-17-2024 ambulatory Brian Nadia Facility :[facility] Start: 03-17-2024 Non-patient / Non-visit Brian Palmer nd DO -[facility] Start: 03-17-2024 Brian Nadia DO -[facility] Start: 03-17-2024 End: 03-17-2024 Admission to same day surgery center Brian Nadia DO -Endoscopy Work Phone: Start: 03-17-2024 End: 03-17-2024 Brian Nadia DO -Endoscopy Work Phone: Start: 03-17-2024 End: 03-17-2024 ambulatory Brian Zuniga Facility:[facility] Start: 03-16-2024 ambulatory Andreas Calvert [facility] Facility :[facility] Start: 03-03-2024 End: 03-03-2024 Patient encounter procedure Brian Nadia DO -[facility] Work Phone: Start: 03-03-2024 End: 03-03-2024 Briansybil Zuniga DO -[facility] Work Phone: Start: 03-03-2024 End: 03-03-2024 ambulatory Brian Zuniga Facility:[facility] Start: 02-20-2024 End: 02-20-2024 Dr. Alex Perales DO -Emergency Department Work Phone: Start: 02-20-2024 End: 02-20-2024 Emergency department patient visit Alex Perales Facility:[facility] Start: 02-18-2024 End: 02-18-2024 Zebulusybil Beam SCREENING TECH-C -Radiology, [facility] Work Phone: Start: 02-18-2024 End: 02-18-2024 ambulatory Zebulun Beam VSC Facility:[facility] Start: 02-16-2024 End: 02-16-2024 Zebulun Beam SCREENING TECH-C -LaboratoryDian Start: 02-16-2024 End: 02-16-2024 ambulatory [facility] Facility:[facility] Start: 02-10-2024 Dr. Omar Betancourt MD -[facility] Work Phone: Start: 02-09-2024 Dr. Omar Betancourt MD -[facility] Work Phone: Start: 02-08-2024 ambulatory Briansybil Zuniga Facility :[facility] Start: 02-08-2024 [facility] DO -[facility] Start: 02-08-2024 Dr. Omar Betancoutr MD -[facility] Work Phone: Start: 02-07-2024 Brian Council DO -[facility] Start: 02-07-2024 Dr. Abdias Gallagher [facility] Work Phone: Start: 02-06-2024 Dr. Abdias Gallagher [facility] Work Phone: Start: 02-05-2024 Dr. Jez bey MD [facility] Work Phone: Start: 02-04-2024 Dr. Raulito Campbell DO -[facility] Start: 02-04-2024 Dr. Jez bey MD [facility] Work Phone: Start: 02-03-2024 Dr. Raulito Campbell DO [facility] Start: 02-03-2024 Dr. Jez bey MD [facility] Work Phone: Start: 02-02-2024 Dr. Raulito Campbell DO -[facility] Start: 02-02-2024 Dr. Jez bey MD [facility] Work Phone: Start: 02-01-2024 Dr. Raulito Campbell DO [facility] Start: 02-01-2024 Dr. Jez bey MD [facility] Work Phone: Start: 01-31-2024 ambulatory Andreas Calvert VS Facility :[facility] Start: 01-31-2024 End: 02-10-2024 Evaluation and management of inpatient Andreas Calvert [facility] Facility:[facility] Start: 01-31-2024 End: 02-10-2024 Dr. Omar Betancourt MD -Medical Surgical 3 Work Phone: Start: 05-18-2023 End: 05-19-2023 Emergency department patient visit Dr. Mynor Garcia Work Phone: [facility]-Emergency Department Work Phone: Start: 05-13-2023 Non-patient / Non-visit Dr. Kayla Garcia Work Phone: [facility] Start: 05-13-2023 End: 05-13-2023 Admission to same day surgery center Dr. Mynor Garcia Work Phone: [facility]-Flaker Tender/Special Procedures Work Phone: Start: 05-13-2023 End: 05-13-[address] Mnyor Garcia Work Phone: [facility] Work Phone: Start: 04-14-2023 End: 04-14-[address] Mynor Garcia Work Phone: [facility] Work Phone: Start: 04-14-2023 End: 04-14-[address] Mynor Garcia Work Phone: [facility] Work Phone: Start: 04-06-2023 End: 04-06-[address] Mynor Garcia Work Phone: [facility] Vascular Surgery Work Phone: Start: 03-27-2023 Non-patient / Non-visit Dr. Kayla Garcia Work Phone: [facility] Start: 03-27-2023 End: 03-27-[address] Mynor Garcia Work Phone: [facility] Work Phone: Start: 03-27-2023 End: 03-27-[address] [facility] Work [facility] Start: 03-17-2023 End: 03-17-[address] Mynor Garcia Work Phone: [facility] Vascular Surgery Work Phone: Start: 03-04-2023 End: 03-04-[address] Mynor Garcia Work Phone: [facility] Work Phone: Start: 03-04-2023 End: 03-04-[address] Mynor Garcia Work Phone: [facility] Work Phone: Start: 12-29-[address] Sawyer Garcia Work Phone: [facility]-Employee Health Start: 12-19-[address] Janett Garcia Work Phone: [facility] Start: 12-19-2022 End: 12-19-2022 Encounter for general adult medical examination without abnormal findings Dr. Mynor Garcia Work Phone: [facility] Start: 12-19-2022 End: 12-19-[address] Mynor Garcia Work Phone: [facility] Internal Medicine Work Phone: Start: 12-15-2022 End: 12-15-[address] Mynor Garcia Work Phone: [facility] Work Phone: Start: 12-15-2022 End: 12-15-[address] Mynor Garcia [facility] Work Phone: Start: 12-15-2022 End: 12-15-[address] Mynor Garcia Work Phone: [facility] Women's [facility] [place] Work Phone: Start: 12-10-2022 End: 12-10-2022 Emergency department patient visit Dr. Mynor Garcia [facility] Work [facility]: Start: 10-12-2022 End: 10-12-[address] Mynor Garcia Work Phone: [facility] Work Phone: Start: 09-23-2022 End: 09-23-[address] Mynor Garcia [facility] Work Phone: Start: 09-23-2022 End: 09-23-[address] Mynor Garcia Work Phone: [facility] Work Phone: Start: 09-03-2022 End: 09-03-[address] Mynor Garcia Work Phone: [facility] Internal Medicine Work Phone: Start: 08-27-2022 Non-patient / Non-visit Dr. Kayla Garcia Work Phone: [facility] Start: 08-27-2022 End: 08-27-[address] Mynor Garcia Work Phone: [facility] Work Phone: Start: 08-27-2022 End: 08-27-[address] Mynor Garcia Work Phone: [facility] Work Phone: Start: 08-22-2022 End: 08-22-[address] Mynor Garcia Work Phone: [facility] Work Phone: Start: 08-22-2022 End: 08-22-[address] Mynor Garcia Work Phone: [facility]-Outpatient Breast Imaging Start: 08-10-2022 End: 08-10-[address] Mynor Garcia Work Phone: [facility] Start: 07-24-2022 End: 07-24-[address] Mynor Garcia Work Phone: [facility] Work Phone: Start: 07-24-2022 End: 07-24-[address] Mynor Garcia Work Phone: [facility]-Laboratory Start: 07-18-2022 End: 07-18-[address] Mynor Garcia Work Phone: [facility]-Pulmonary Services/Neurology Start: 07-14-2022 End: 07-14-[address] Mynor Garcia Work Phone: [facility] Start: 04-16-2022 End: 04-16-[address] Mynor Garcia Work Phone: [facility] Start: 12-19-2021 End: 12-19-[address] Mynor Garcia Work Phone: [facility] Work Phone: Start: 12-19-[address] Sawyer Garcia Work Phone: [facility] Start: 12-19-2021 End: 12-19-2021 Encounter for general adult medical examination without abnormal findings Dr. Mynor Garcia Work Phone: [facility] Start: 12-19-2021 End: 12-19-[address] Mynor Garcia Work Phone: [facility] Start: 12-10-2021 End: 12-10-[address] Mynor Garcia Work Phone[facility] Start: 11-27-2021 End: 11-27-[address] Mynor Garcia Work Phone: [facility] Start: 10-30-2021 End: 10-30-[address] Mynor Garcia Work Phone: [facility] Start: 10-18-2021 Non-patient / Non-visit Dr. Kayla Garcia Work Phone: [facility] Start: 10-17-2021 End: 10-18-2021 Evaluation and management of inpatient Dr. Mynor Garcia [facility] Phone: [facility] Start: 10-17-2021 Non-patient / Non-visit Dr. Kayla Garcia Work Phone: [facility] Start: 09-26-2021 End: 09-26-[address] Mynor Garcia Work Phone: [facility] [place] Start: 09-08-2021 End: 09-08-[address] Mynor Garcia [facility] Start: 09-08-2021 End: 09-08-[address] Mynor Garcia Work Phone: [facility] Start: 08-25-2021 End: 08-25-[address] Mynor Garcia [facility] Start: 08-25-2021 End: 08-25-[address] Mynor Mccarthy Phone: [facility] Start: 07-22-2021 End: 07-22-[address] Mynor Garcia Work Phone: [facility] Start: 07-22-2021 End: 07-22-[address] Mynor Mccarthy Phone: [facility], [facility] Start: 07-16-2021 End: 07-16-[address] Mynor Garcia Work Phone: [facility] Start: 07-04-2021 End: 07-04-[address] Mynor Garcia Work Phone: [facility] [place] Start: 06-26-2021 End: 06-26-[address] Mynor Garcia Work Phone: [facility] Start: 06-20-2021 End: 06-20-[address] Mynor Mccarthy Phone: [facility] Start: 06-14-2021 End: 06-14-[address] Mynor Garcia Work Phone: [facility]-Ultrasound, [facility] Start: 06-13-2021 End: 06-13-[address] Mynor Garcia Work Phone: [facility]-Outpatient Breast Imaging Start: 06-07-2021 End: 06-07-[address] Mynor Garcia Work Phone: [facility]-Outpatient Breast Imaging Start: 06-07-[address] Janett Garcia Work Phone: [facility] Work Phone: Start: 06-07-2021 End: 06-07-[address] Mynor Garcia Work Phone: [facility] Start: 06-07-2021 End: 06-07-[address] Mynor Garcia Work Phone: [facility] Start: 05-18-2021 End: 05-18-[address] Mynor Garcia Work Phone: [facility] Start: 04-19-2021 End: 04-19-[address] Mynor Garcia Work Phone: [facility]-Cardiovascular Services Start: 03-13-2021 End: 03-13-[address] Mynor Garcia Work Phone: [facility]-Laboratory, [facility] Start: 03-21-2020 End: 03-21-2020 Patient encounter procedure SCOT Cai ROSS [facility] Start: 03-15-2020 End: 03-15-2020 Patient encounter procedure [place] Ayala [facility] Start: 02-22-2020 End: 02-22-2020 Emergency department patient visit MELINA DEGROOT [facility] Start: 12-26-2019 Encounter for gyneco logical examination (general) (routine) without abnormal findings [facility] Start: 12-26-2019 End: 12-26-2019 Patient encounter procedure [facility] Start: 12-23-2019 Encounter for genera l adult medical examination without abnormal findings [facility] Start: 12-23-2019 End: 12-23-2019 Patient encounter procedure ISABEL [facility] Start: 11-25-2019 End: 11-25-2019 Patient encounter procedure [facility] Encounter for genera l adult medical examination without abnormal findings [facility] Procedures Date Procedure Procedure Detail Performing Clinician Start: 10-07-2024 Radex spine cervical 4 or 5 views Patomp kmjessy Ayala MD Work Phone: Start: 10-07-2024 Radiologic exam chest 2 views Patken Ayala MD Work Phone: Start: 06-29-2024 Estimated creatinine clearance Andreas Hendricks r SCREENING TECH-C Work Phone: Start: 06-27-2024 Estimated creatinine clearance Andraes murcia SCREENING TECH-C Work Phone: Start: 06-27-2024 Urnls dip stick/tablet reagent auto microscopy Andreas Calvert SCREENING TECH-C Work Phone: Start: 06-21-2024 X-ray of cervical spine Andreas Calvert SCREENING TECH-C Work Phone: Start: 06-21-2024 X-ray of lumbar spine, two or three views Andreas Calvert SCREENING TECH-C Work Phone: Start: 06-21-2024 Xray thoracic spine Andreas Calvert SCREENING TECH-C Work Phone: Start: 05-17-2024 CT of chest without contrast Andreas Calvert SCREENING TECH-C Work Phone: Start: 04-11-2024 Antibody measurement Andreas Calvert SCREENING TECH-C Work Phone: Comment on above: The atypical pANCA pattern has been obse rved in asignificant percentage of patients with ulcerative colitis,primary sclerosing cholangitis and autoimmune hepatitis. Start: 04-11-2024 Antibody to centromere measurement Andreas Calvert SCREENING TECH-C Work Phone: Comment on above: Previous reported result: TNP AIEdited b y: INFCE on 04/13/24:1307 AMENDED REPORT 04/13/24 1307 ANTI-CENT B previously reported as: Test not performed Start: 04-11-2024 Antibody to extractable nuclear antigen measurement Andreas Calvert SCREENING TECH-C Work Phone: Comment on above: Previous reported result: TNP AIEdited b y: INFCE on 04/13/24:1307 AMENDED REPORT 04/13/24 1309 PALMER Ab previously reported as: Test not performed Start: 04-11-2024 Antibody to ELAINE-1 measurement Andreas Calvert SCREENING TECH-C Work Phone: Comment on above: Previous reported result: TNP AIEdited b y: INFCE on 04/13/24:1307 AMENDED REPORT 04/13/24 1307 ANTI-ELAINE previously reported as: Test not performed Start: 04-11-2024 Antibody to lupus La protein measurement Andreas Calvert SCREENING TECH-C Work Phone: Comment on above: Previous reported result: TNP AIEdited b y: INFCE on 04/13/24:1307 AMENDED REPORT 04/13/24 1307 Anti-SS-B previously reported as: Test not performed Start: 04-11-2024 Antibody to SS-A measurement Andreas Calvert SCREENING TECH-C Work Phone: Comment on above: Previous reported result: TNP AIEdited b y: INFCE on 04/13/24:1307 AMENDED REPORT 04/13/24 1307 Anti-SS-A previously reported as: Test not performed Start: 04-11-2024 Autoantibody measurement Andreas Calvert SCREENING TECH-C Work Phone: Comment on above: Previous reported result: TNP AIEdited b y: INFCE on 04/13/24:1307 AMENDED REPORT 04/13/24 1307 ANTICHROMATIN previously reported as: Test not performed Start: 04-11-2024 C>1 Andreas Calvert SCREENING TECH-C Work Phone: Comment on above: Performed at: [facility] [id number] [place], [place] [id number] Director: Uziel Abrams PhD, Phone: [phone] at: [facility] Lab[address] [id number] Director: David King MD, Phone: [phone] Start: 04-11-2024 C>3< complement assay Andreas Calvert SCREENING TECH-C Work Phone: Start: 04-11-2024 Hemolytic complement CH50 level Andreas le SCREENING TECH-C Work Phone: Comment on above: Age Male Female 1 - 30 days Not Estab. N ot Estab. 31 days - 6 months >32 >20 7 months - 17 years >39 >39 >17 years >41 >41 NOTE: The adult (>17 years) reference interval range is used to flag abnormals on this report. If the patient is 17 years old or younger, use the table above to determine out of range values. Start: 04-11-2024 DRAWBENCH OPERATOR HELPER antibody measurement Andreas Calvert SCREENING TECH-C Work Phone: Comment on above: Previous reported result: TNP AIEdited b y: INFCE on 04/13/24:1307 AMENDED REPORT 04/13/24 1307 DRAWBENCH OPERATOR HELPER Ab previously reported as: Test not performed Start: 02-20-2024 X-ray of chest, PA and lateral views Andreas Calvert SCREENING TECH-C Work Phone: Start: 02-18-2024 Videoswallow Andreas Calvert SCREENING TECH-C Work Phone: Start: 02-09-2024 Plain X-ray abdomen Andreas Calvert SCREENING TECH-C Work Phone: Start: 02-08-2024 Plain X-ray abdomen Andreas Calvert SCREENING TECH-C Work Phone: Start: 02-08-2024 Esophagogastroduodenoscopy Andreas Calvert SCREENING TECH -C Work Phone: Start: 02-06-2024 Gram stain microscopy Andreas Calvert SCREENING TECH-C Work Phone: Start: 02-06-2024 Respiratory microbial culture Andreas Calvert SCREENING TECH-C Work Phone: Start: 01-31-2024 Plain chest X-ray Andreas Calvert SCREENING TECH-C Work Phone: Start: 01-31-2024 Gram stain microscopy Andreas Calvert SCREENING TECH-C Work Phone: Start: 01-31-2024 Respiratory microbial culture Andreas Calvert SCREENING TECH-C Work Phone: Start: 05-18-2023 Computed tomography of abdomen and pelvis with intravenous contrast Dr. Mynor Garcia Work Phone: Start: 05-18-2023 CT of head without contrast Dr. China Garcia Work Phone: Start: 05-18-2023 SARS-CoV-2, Influenza & RSV (PCR) Dr. Kayla Garcia Work Phone: Start: 04-14-2023 Computed tomography of abdomen and pelvis with intravenous contrast Dr. Mynor Garcia Work Phone: Start: 03-04-2023 CT of chest without contrast Dr. Rola Garcia Work Phone: Start: 12-15-2022 Cytopathology procedure, preparation of smear, genital source Dr. Mynor Garcia Work Phone: Start: 12-15-2022 Investigation of transfusion reaction Dr. Mynor Garcia Work Phone: Start: 12-10-2022 CT of head without contrast Dr. China Garcia Work Phone: Start: 09-23-[address] Mynor Garcia Work Phone: Start: 08-27-2022 CT angiography of coronary arteries Dr. Mynor Garcia Work Phone: Start: 08-22-[address] Mynor Garcia Work Phone: Start: 09-30-2021 H/O: hysterectomy Status post hysterectomy Dr. Mynor Garcia Work Phone: Comment on above: robotic, BS, cysto Start: 07-22-2021 Radiography of thoracic spine Dr. Sawyer Garcia Work Phone: Start: 06-14-[address] Mynor Garcia Work Phone: Start: 06-14-[address] Mynor Garcia Work Phone: Start: 06-13-[address] Mynor Garica Work Phone: Start: 02-22-2020 Urinalysis MELINA SEGAL Comment on above: Result Comment: URINALYSIS Performed By: #### 2 [id number] #### [facility],[address] [place] [address] Start: 09-06-2011 Lipid 1996 panel - Serum or Plasma Xr A2 1 H/O: hysterectomy Status post hysterectomy Dr. Mynor Garcia Work Phone: Comment on above: total r obotic hysterectomy - endometria l fibroids and adenomyosis on pathology Urine culture Dr. Mynor Garcia Work Phone: Plan of Treatment Date Care Activity Detail Author Start: 09-04-2030 Urine microalbumin profile DTa P,Tdap,Td Vaccine (2 - Td or Tdap) [facility] Start: 12-08-2024 End: 12-08-2024 Patient encounter procedure 12/08/2024 1:30 PM EDT Office Visit Allergy [address] [facility] [address] [place], [place] [address] Janina Govea DO [address] [place], [place] [id number] What would have caused me to be put on a ventilato Allergy Comment on above: What would have caus ed me to be put on a ventilato Start: 10-31-2024 Influenza vaccination Influenz a Vaccine (#1) [facility] Start: 06-29-2024 Patient discharge [facility] Start: 06-27-2024 End: 06-27-2024 [facility] Start: 03-17-2024 Egd transoral biopsy single/multiple [facility] Start: 03-17-2024 Patient discharge [facility] Start: 02-20-2024 [facility] Start: 02-10-2024 [facility] Start: 02-10-2024 Patient discharge [facility] Start: 02-09-2024 [facility] Start: 02-07-2024 Referral to gastroenterology service [facility] Start: 02-07-2024 Following clinical p athway protocol [facility] Start: 02-05-2024 [facility] Start: 02-04-2024 Care planning and pr oblem solving actions [facility] Start: 02-03-2024 Speech therapy assessment [facility] Start: 02-01-2024 Respiratory therapy [facility] Start: 01-31-2024 End: 02-01-2024 [facility] Start: 01-31-2024 Following clinical p athway protocol [facility] Start: 01-31-2024 Assessment of risk o f venous thromboembolism [facility] Start: 01-31-2024 Assessment using ass essment scale [facility] Start: 01-31-2024 Elevation of head of bed [facility] Start: 01-31-2024 Inhalation therapy procedure [facility] Start: 01-31-2024 Insertion of cathete r into peripheral vein [facility] Start: 01-31-2024 Introduction of urin niki catheter [facility] Start: 01-31-2024 Measuring intake and output [facility] Start: 01-31-2024 Mouth care [facility] Start: 01-31-2024 Notification of physician [facility] Start: 01-31-2024 Patient referral to dietitian [facility] Start: 01-31-2024 Providing care accor ding to standard [facility] Start: 01-31-2024 Provision of activit y privileges [facility] Start: 01-31-2024 Referral to service [facility] Start: 01-31-2024 Tracheostomy care [facility] Start: 01-31-2024 Trial for daily interruption of sedation during mechanically assisted ventilation [facility] Start: 01-31-2024 Vital signs measurements [facility] Start: 01-31-2024 Respiratory therapy [facility] Start: 01-31-2024 Admission procedure [facility] Start: 01-31-2024 Patient referral to dietitian [facility] Start: 05-19-2023 [facility] Start: 05-13-2023 Patient discharge [facility] Start: 12-19-2022 Patient referral [facility] Work Phone: Start: 12-10-2022 [facility] Start: 11-19-2022 Screening for malign ant neoplasm of cervix Cervical Cancer Screening [facility] Start: 07-14-2022 Patient referral [facility] Work Phone: Start: 2022 Diabetes Screening Diabetes Screenin g [facility] Start: 2022 Lipid panel Lipid Screening [facility] Start: 2022 Screening for malign ant neoplasm of colon [facility] Start: 12-19-2021 Patient referral [facility] Work Phone: Start: 10-18-2021 Patient discharge [facility] Work Phone: Start: 10-17-2021 Following clinical p athway protocol [facility] Work Phone: Start: 10-17-2021 Admission procedure [facility] Work Phone: Start: 10-17-2021 Ambulation therapy management [facility] Work Phone: Start: 10-17-2021 End: 10-17-2021 Application of intermittent pneumatic compression device [facility] Work Phone: Start: 10-17-2021 Continuous pulse oximetry [facility] Work Phone: Start: 10-17-2021 Elevation of head of bed [facility] Work Phone: Start: 10-17-2021 Incentive spirometry [facility] Work Phone: Start: 10-17-2021 Measuring intake and output [facility] Work Phone: Start: 10-17-2021 Notification of physician [facility] Work Phone: Start: 10-17-2021 Oxygen therapy [facility] Work Phone: Start: 10-17-2021 Patient education [facility] Work Phone: Start: 10-17-2021 Procedures relating to eating and drinking [facility] Work Phone: Start: 10-17-2021 Taking patient vital signs [facility] Work Phone: Start: 10-17-2021 [facility] Work Phone: Start: 10-17-2021 Introduction of urin niki catheter [facility] Work Phone: Start: 10-17-2021 Anesthesia intraperi toneal lower abd w/laps nos ANESTH SURG LOWER ABDOMEN [facility] Work Phone: Start: 10-17-2021 Laps total hysterect 250 gm/< w/rmvl tube/ovary TLH W/T/O 250 G OR LESS [facility] Work Phone: Start: 10-17-2021 Sling operation stre ss incontinence REPAIR BLADDER DEFECT [facility] Work Phone: Start: 10-17-2021 Admission procedure [facility] Work Phone: Start: 06-07-2021 Patient referral [facility] Work Phone: Start: 03-13-2021 Patient referral [facility] Work Phone: Start: 2017 Screening for malign ant neoplasm of breast Mammogram [facility] Start: 1995 Anxiety Screening Anxiety Screening [facility] Start: 1995 Depression Screening Depression Scre ening [facility] Start: 1995 [facility] CBC W Auto Different ial panel - Blood [facility] MG Breast - bilatera l Screening [facility] Patient Education [facility] Work Phone: Patient referral [facility] Work Phone: Urine test [facility] Work Phone: XR Foot GE 3 Views [facility] Work Phone: [facility] Immunizations Immunization Date Immunization Notes Care Provider Catrachita woodson 12-17-2023 influenza, seasonal, injectable, preservative free Andreas KWONC Work Phone: [facility] 12-17-2023 influenza virus vaccine, unspecified formulation Xr A21 [facility] 01-15-2023 influenza, injectabl e, quadrivalent, preservative free Dr. Mynor Garcia Work Phone: [facility] 12-23-2021 influenza, injectabl e, quadrivalent, preservative free Dr. Mynor Garcia Work Phone: [facility] 12-23-2021 influenza, seasonal, injectable Dr. Mynor Garcia Work Phone: [facility] 05-02-2021 hepatitis B vaccine, adult dosage Dr. Mynor Garcia Work Phone: [facility] 12-13-2020 influenza, injectabl e, quadrivalent, preservative free Dr. Mynor Garcia Work Phone: [facility] 12-13-2020 influenza, seasonal, injectable Dr. Mynor Garcia Work Phone: [facility] 11-06-2020 hepatitis B vaccine, adult dosage Dr. Mynor Garcia Work Phone: [facility] 09-11-2020 hepatitis B vaccine, adult dosage Dr. Mynor Garcia Work Phone: [facility] 09-04-2020 tetanus toxoid, redu mitchell diphtheria toxoid, and acellular pertussis vaccine, adsorbed Dr. Mynor Garcia Work Phone: [facility] Payers Date Payer Category Payer Self-pay [id number] 2023 Private Health Insurance [facility] [id number] 2023 Unknown [id number] 1977 Unknown [id number] 2.840.1.374926.3.579.2. 67 1977 Unknown [id number] 2.840.1.259320.3.579.2. 1977 Unknown [id number] .840.1.797720.3.579.2. 67 1977 Unknown [id number] 2.840.1.841504.3.579.2. 67 1977 Unknown [id number] 2.16840.1.130319.3.579.2. 67 1977 Unknown [id number] 2.840.1.080097.3.579.2. 67 Unknown [id number] Unknown [id number] Unknown [id number] [facility] [id number] Unknown [id number] 2.16.840.1.597099.3.579.2. 462 Unknown [id number] 2.16.840.1.735433.3.579.2. 462 Unknown [id number] 2.16.840.1.470721.3.579.2. 462 Unknown [id number] 2.16.840.1.440724.3.579.2. 462 Unknown [id number] 2.16.840.1.105725.3.579.2. 462 Unknown [id number] 2.16.840.1.654156.3.579.2. 462 Unknown [id number] 2.16.840.1.405167.3.579.2. 462 Unknown [id number] 2.16.840.1.968762.3.579.2. 462 Unknown [id number] 2.16840.1.005354.3.579.2. 462 Unknown [id number] 2.840.1.890004.3.579.2. 462 Unknown [id number] 2.16.840.1.116165.3.579.2. 462 Unknown [id number] 2.16.840.1.326623.3.579.2. 462 Unknown [id number] 2.16.840.1.378346.3.579.2. 462 Unknown [id number] 2.16.840.1.311583.3.579.2. 462 Unknown [id number] 2.16.840.1.445971.3.579.2. 462 Unknown [id number] 2.16.840.1.337353.3.579.2. 462 Unknown [id number] 2.16.840.1.680792.3.579.2. 462 Unknown [id number] 2.16.840.1.998527.3.579.2. 462 Unknown [id number] 2.16.840.1.601599.3.579.2. 462 Unknown [id number] 2.16.840.1.546254.3.579.2. 462 Unknown [id number] 2.16.840.1.488480.3.579.2. 462 Unknown [id number] 2.840.1.837763.3.579.2. 462 Unknown [id number] 2.16840.1.137175.3.579.2. 462 Unknown [id number] 2.840.1.398703.3.579.2. 462 Unknown [id number] 2.840.1.473378.3.579.2. 462 Unknown [id number] 2.16.840.1.715212.3.579.2. 462 Unknown [id number] 2.16.840.1.377515.3.579.2. 462 Unknown [id number] 2.16840.1.173339.3.579.2. 462 Unknown [id number] 2.16.840.1.770989.3.579.2. 462 Unknown [id number] 2.16.840.1.280849.3.579.2. 462 Unknown [id number] 2.16.840.1.835039.3.579.2. 462 Unknown [id number] 2.16.840.1.835755.3.579.2. 462 Unknown [id number] 2.16.840.1.363611.3.579.2. 462 Unknown [id number] 2.16840.1.613666.3.579.2. 462 Unknown [id number] 2.16.840.1.500254.3.579.2. 462 Unknown [id number] 2.16.840.1.345387.3.579.2. 462 Unknown [id number] 2.16.840.1.194178.3.579.2. 462 Unknown [id number] 2.16.840.1.166508.3.579.2. 462 Unknown [id number] 2.16.840.1.868345.3.579.2. 462 Unknown [id number] 2.16.840.1.120578.3.579.2. 462 Unknown [id number] 2.16.840.1.359289.3.579.2. 462 Social History Date Type Detail Facility Start: 06-07-2021 End: 05-18-2023 Tobacco smoking status NCIS Unknown if ever smoked [facility] Start: 01-28-2018 Non-smoker [facility] Start: 1975 Sex Assigned At Female [facility] Start: 03-13-2011 End: 03-16-2024 Tobacco smoking status NCIS Never smoked tobacco (finding) [facility] Start: 05-25-2024 End: 06-27-2024 Sex Female (finding) [facility] Start: 03-13-2011 Tobacco use and exposure Smokeless tobacco non-user [facility] Start: 07-18-2019 Alcoholic beverage intake Current non-drinker of alcohol (finding) [facility] Start: 07-18-2019 End: 10-27-2024 History of Social function [facility] Start: 07-18-2019 End: 10-27-2024 Tobacco use panel [facility] Start: 02-01-2012 National Score (1-100), lower number is lower risk 72 [facility] Start: 1975 Sex assigned at Not [facility] file [facility] NEGATED: Highlighted row [facility] Medical Equipment Procedure Code Equipment Code Equipment Origin al Text Equipment Identifier Dates Abdominal hysterectomy with conservation of ovaries DRESSING,FIBRILLAR 1X2 1960 FDA Start: 10-17-2021 Abdominal hysterectomy with conservation of ovaries SEALANT,FLOSEAL HEMOSTATIC 5ML FDA Start: 10-17-2021 Abdominal hysterectomy with conservation of ovaries SLING, ALTIS VAGINAL FDA Start: 10-17-2021 Abdominal hysterectomy with conservation of ovaries DRESSING,FIBRILLAR 1X2 196 FDA Start: 10-17-2021 Abdominal hysterectomy with conservation of ovaries SEALANT,FLOSEAL HEMOSTATIC 5ML FDA Start: 10-17-2021 Abdominal hysterectomy with conservation of ovaries SLING, ALTIS VAGINAL FDA Start: 10-17-2021 Abdominal hysterectomy with conservation of ovaries DRESSING,FIBRILLAR 1X2 1960 FDA Start: 10-17-2021 Abdominal hysterectomy with conservation of ovaries SEALANT,FLOSEAL HEMOSTATIC 5ML FDA Start: 10-17-2021 Abdominal hysterectomy with conservation of ovaries SLING, ALTIS VAGINAL FDA Start: 10-17-2021 Abdominal hysterectomy with conservation of ovaries DRESSING,FIBRILLAR 1X2 1960 FDA Start: 10-17-2021 Abdominal hysterectomy with conservation of ovaries SEALANT,FLOSEAL HEMOSTATIC 5ML FDA Start: 10-17-2021 Abdominal hysterectomy with conservation of ovaries SLING, ALTIS VAGINAL FDA Start: 10-17-2021 Abdominal hysterectomy with conservation of ovaries DRESSING,FIBRILLAR 1X2 1960 FDA Start: 10-17-2021 Abdominal hysterectomy with conservation of ovaries SEALANT,FLOSEAL HEMOSTATIC 5ML FDA Start: 10-17-2021 Abdominal hysterectomy with conservation of ovaries SLING, ALTIS VAGINAL FDA Start: 10-17-2021 Abdominal hysterectomy with conservation of ovaries DRESSING,FIBRILLAR 1X2 1960 FDA Start: 10-17-2021 Abdominal hysterectomy with conservation of ovaries SEALANT,FLOSEAL HEMOSTATIC 5ML FDA Start: 10-17-2021 Abdominal hysterectomy with conservation of ovaries SLING, ALTIS VAGINAL FDA Start: 10-17-2021 Abdominal hysterectomy with conservation of ovaries DRESSING,FIBRILLAR 1X2 1960 FDA Start: 10-17-2021 Abdominal hysterectomy with conservation of ovaries SEALANT,FLOSEAL HEMOSTATIC 5ML FDA Start: 10-17-2021 Abdominal hysterectomy with conservation of ovaries SLING, ALTIS VAGINAL FDA Start: 10-17-2021 Abdominal hysterectomy with conservation of ovaries DRESSING,FIBRILLAR 1X2 1960 FDA Start: 10-17-2021 Abdominal hysterectomy with conservation of ovaries SEALANT,FLOSEAL HEMOSTATIC 5ML FDA Start: 10-17-2021 Abdominal hysterectomy with conservation of ovaries SLING, ALTIS VAGINAL FDA Start: 10-17-2021 Abdominal hysterectomy with conservation of ovaries DRESSING,FIBRILLAR 1X2 1960 FDA Start: 10-17-2021 Abdominal hysterectomy with conservation of ovaries SEALANT,FLOSEAL HEMOSTATIC 5ML FDA Start: 10-17-2021 Abdominal hysterectomy with conservation of ovaries SLING, ALTIS VAGINAL FDA Start: 10-17-2021 Abdominal hysterectomy with conservation of ovaries DRESSING,FIBRILLAR 1X2 1960 FDA Start: 10-17-2021 Abdominal hysterectomy with conservation of ovaries SEALANT,FLOSEAL HEMOSTATIC 5ML FDA Start: 10-17-2021 Abdominal hysterectomy with conservation of ovaries SLING, ALTIS VAGINAL FDA Start: 10-17-2021 Abdominal hysterectomy with conservation of ovaries FDA Start: 10-17-2021 Abdominal hysterectomy with conservation of ovaries FDA Start: 10-17-2021 Abdominal hysterectomy with conservation of ovaries FDA Start: 10-17-2021 Abdominal hysterectomy with conservation of ovaries FDA Start: 10-17-2021 Abdominal hysterectomy with conservation of ovaries FDA Start: 10-17-2021 Abdominal hysterectomy with conservation of ovaries FDA Start: 10-17-2021 Abdominal hysterectomy with conservation of ovaries DRESSING,FIBRILLAR 1X2 1960 FDA Start: 10-17-2021 Abdominal hysterectomy with conservation of ovaries SEALANT,FLOSEAL HEMOSTATIC 5ML FDA Start: 10-17-2021 Abdominal hysterectomy with conservation of ovaries SLING, ALTIS VAGINAL FDA Start: 10-17-2021 Abdominal hysterectomy with conservation of ovaries DRESSING,FIBRILLAR 1X2 1960 FDA Start: 10-17-2021 Abdominal hysterectomy with conservation of ovaries SEALANT,FLOSEAL HEMOSTATIC 5ML FDA Start: 10-17-2021 Abdominal hysterectomy with conservation of ovaries SLING, ALTIS VAGINAL FDA Start: 10-17-2021 Abdominal hysterectomy with conservation of ovaries DRESSING,FIBRILLAR 1X2 1960 FDA Start: 10-17-2021 Abdominal hysterectomy with conservation of ovaries SEALANT,FLOSEAL HEMOSTATIC 5ML FDA Start: 10-17-2021 Abdominal hysterectomy with conservation of ovaries SLING, ALTIS VAGINAL FDA Start: 10-17-2021 Needle (Disp) 25 Gauge Start: 12-19-2021 Needle (Disp) 25 Gauge Start: 12-19-2021 Needle (Disp) 25 Gauge Start: 12-19-2021 Needle (Disp) 25 Gauge Start: 12-19-2021 Needle (Disp) 25 Gauge Start: 12-19-2021 End: 12-15-2022 Needle (Disp) 25 Gauge Start: 12-19-2021 End: 12-15-2022 Syringe With Needle, Safety (Easy Touch [place] Syrg-Ndl) 3 mL 25 gauge x 1 syringe Start: 03-18-2023 Needle (Disp) 25 Gauge Start: 12-19-2021 End: 12-15-2022 Syringe With Needle, Safety (Easy Touch [place] Syrg-Ndl) 3 mL 25 gauge x 1 syringe Start: 03-18-2023 End: 03-18-2023 Syringe With Needle, Safety (Easy Touch [place] Syrg-Ndl) 3 mL 25 gauge x 1 syringe Start: 03-18-2023 Needle (Disp) 25 Gauge Start: 12-19-2021 End: 12-15-2022 Syringe With Needle, Safety (Easy Touch [place] Syrg-Ndl) 3 mL 25 gauge x 1 syringe Start: 03-18-2023 End: 03-18-2023 [id number] Start: 05-13-2023 Syringe With Needle, Safety (Easy Touch [place] Syrg-Ndl) 3 mL 25 gauge x 1 syringe Start: 03-18-2023 Needle (Disp) 25 Gauge Start: 12-19-2021 End: 12-15-2022 Syringe With Needle, Safety (Easy Touch [place] Syrg-Ndl) 3 mL 25 gauge x 1 syringe Start: 03-18-2023 End: 03-18-2023 Syringe With Needle, Safety (Easy Touch [place] Syrg-Ndl) 3 mL 25 gauge x 1 syringe Start: 03-18-2023 Needle (Disp) 25 Gauge Start: 12-19-2021 End: 12-15-2022 Syringe With Needle, Safety (Easy Touch [place] Syrg-Ndl) 3 mL 25 gauge x 1 syringe Start: 03-18-2023 End: 03-18-2023 Syringe With Needle, Safety (Easy Touch [place] Syrg-Ndl) 3 mL 25 gauge x 1 syringe Start: 03-18-2023 Needle (Disp) 25 Gauge 25 gauge x 1 needle Start: 12-19-2021 End: 12-15-2022 Syringe With Needle, Safety (Easy Touch [place] Syrg-Ndl) 3 mL 25 gauge x 1 syringe Start: 03-18-2023 End: 03-18-2023 Syringe With Needle, Safety (Easy Touch [place] Syrg-Ndl) 3 mL 25 gauge x 1 syringe Start: 03-18-2023 Needle (Disp) 25 Gauge 25 gauge x 1 needle Start: 12-19-2021 End: 12-15-2022 Syringe With Needle, Safety (Easy Touch [place] Syrg-Ndl) 3 mL 25 gauge x 1 syringe Start: 03-18-2023 End: 03-18-2023 Syringe With Needle, Safety (Easy Touch [place] Syrg-Ndl) 3 mL 25 gauge x 1 syringe Start: 03-18-2023 Needle (Disp) 25 Gauge 25 gauge x 1 needle Start: 12-19-2021 End: 12-15-2022 Syringe With Needle, Safety (Easy Touch [place] Syrg-Ndl) 3 mL 25 gauge x 1 syringe Start: 03-18-2023 End: 03-18-2023 Goals Date Patient Goal Desired Activity /State Functional Status Date Assessment Result Facility 02-10-2024 Functional status Chair [facility] Work Phone: 10-18-2021 Functional status Ambulates;Bath room Privilege [facility] Work Phone: 07-18-2014 Are you deaf, or do you have serious difficulty hearing No 07/18/2014 10:54 AM Mindy Roldan MA [facility] 07-18-2014 Are you blind, or do you have serious difficulty seeing, even when wearing glasses No 07/18/2014 10:54 AM Mindy Roldan MA [facility] 07-18-2014 Do you have serious difficulty walking or climbing stairs No 07/18/2014 10:54 AM Mindy Roldan MA [facility] 07-18-2014 Do you have difficul ty dressing or bathing No 07/18/2014 10:54 AM Mindy Roldan MA [facility] 07-18-2014 Because of a physica l, mental, or emotional condition, do you have difficulty doing errands alone such as visiting a physician's office or shopping No 07/18/2014 10:54 AM Mindy Roldan MA [facility] Mental Status Date Assessment Result Facility 06-27-2024 Cognitive function Level Of Cons ciousness Awake;Alert;Appropriate [facility] Work Phone: 03-17-2024 Cognitive function Sedated [facility] Work Phone: 03-17-2024 Cognitive function Voice/Name [facility] Work Phone: 02-20-2024 Cognitive function Awake;Alert;Appropriat e [facility] Work Phone: 02-10-2024 Cognitive function Voice/Name [facility] Work Phone: 02-09-2024 Cognitive function Appropriate;Cooperativ e [facility] Work Phone: 05-18-2023 Cognitive function Level Of Cons ciousness Awake;Alert;Appropriate;Fol lows Commands [facility] Work Phone: 12-10-2022 Cognitive function Level Of Cons ciousness Awake;Alert;Appropriate;Fol lows Commands [facility] Work Phone: 10-18-2021 Cognitive function Voice/Name [facility] Work Phone: 07-18-2014 Because of a physica l, mental, or emotional condition, do you have serious difficulty concentrating, remembering, or making decisions No 07/18/2014 10:54 AM EDT Mindy Tamayo MA No [facility] Clinical Notes 06-07-2021 to 01-10-2025 Jordan Ayala MD - 10/27/2024 3:20 PM Rufina Spears RT(R) - 10/07/2024 11:00 AM EDT Note Date & Type Note Facility 01-10-2025 Note HNO ID: [id number] Author: JANINA GOVEA, DO Service: ? Author Type: Physician Type: Progress Notes Filed: 01/10/2025 14:41 Note Text: Allergy and Immunology 01/10/2025 CHIEF COMPLAINT: recurrent swelling episodes HISTORY OF PRESENT ILLNESS: Here today to review results and do potential skin testing She has eaten shrimp occasionally but pre treats with benadryl and prednisone and eats only a few at a time She has been avoiding [employer] Feels as though plaquenil has made her joint symptoms worse No interval hives/angioedema since last visit Today she recalls more episodes of hives and angioedema Was told she was allergic to pine nut, peanut, tree nuts based on skin testing but is able to tolerate these foods. 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 PAST MEDICAL HISTORY Diagnosis Date Localization-related (focal) (partial) epilepsy and epileptic syndromes with simple partial seizures, without mention of intractable epilepsy AFTER OF FIRST CHILD FAMILY HISTORY Problem Relation Age of Onset Lipids Mother Arthritis Father Diabetes Father Heart Father Hypertension Father Cancer Maternal Grandmother ?THROAT. Goiter? PAST SURGICAL HISTORY Procedure Laterality Date CARPAL TUNNEL DELIVERY ONLY 1998 AND 2000 , low cervical ENDOSEE TUBING FOR DEVICE 12/24/2017 with EMB GASTRIC BYPASS-MORBID OBESITY 04/06/2017 gastric sleeve HYSTEROSCOPY ENDOMETRIAL ABLATION 02/04/2018 [place] PAST SURGICAL HISTORY OF NAIL EVERSION TONSILLECTOMY PRIMARY/SECONDARY Tonsillectomy TUBAL LIGATION, Current Outpatient Medications Medication Sig prednisoLONE acetate (PRED FORTE) 1 % ophthalmic suspension 1 drop two times a day. prednisoLONE sodium phosphate (ORAPRED) 15 mg/5 mL (3 mg/mL) oral liquid Take 20 mL by mouth once daily. Start wiith onset of swelling. Repeat in 24 hours if not resolved hydrOXYchloroQUINE (PLAQUENIL) 200 mg tablet Take 1 tablet by mouth two times a day. clopidogrel (PLAVIX) 75 mg tablet Take 75 mg by mouth once daily. predniSONE (DELTASONE) 10 mg tablet Take 5 mg by mouth as needed. cyanocobalamin (VITAMIN B-12) 500 mcg tab tab(s) WE desonide (DESOWEN) 0.05 % ointment Apply to affected area two times a day. albuterol HFA (PROAIR HFA) 90 mcg/actuation inhaler Inhale 2 Puffs as instructed every 4 hours as needed for Wheezing/Shortness of Breath. (Patient not taking: Reported on 07/18/2019) biotin 5,000 mcg ODT DAILY (Patient not taking: Reported on 10/07/2024) calcium citrate (CALCITRATE) 200 mg (950 mg) tab TWICE A DAY (Patient not taking: Reported on 10/07/2024) Cholecalciferol, Vitamin D3, 2,000 unit cap TWICE A DAY (Patient not taking: Reported on 10/07/2024) ferrous sulfate 325 mg (65 mg iron) tablet Take 1 tablet by mouth twice daily. (Patient not taking: Reported on 10/07/2024) No current facility-administered medications for this visit. ALLERGIES Allergen Reactions Ibuprofen Shortness of Breath but able to take Aleve PHYSICAL EXAM: BP 140/82 (BP Site: Left Arm, BP Position: Sitting, BP Cuff Size: Large Adult) Pulse 89 Temp 36.6 ?C (97.8 ?F) Resp 18 Wt 121.6 kg (268 lb) LMP 02/25/2018 SpO2 97% BMI 45.19 kg/m? GENERAL: alert, oriented, comfortable EYES: non icteric sclera EARS: external ears normal NOSE: no audible congestion CHEST/LUNGS: respirations easy and regular Phone pictures: From first episode after [employer], flushed face with chemosis bilaterally, generalized facial plethora, enlarged tongue, no discrete angioedema of lips While intubated, facial fullness + enlarged tongue, no discrete angioedema of lips DATA/DIAGNOSTICS: I personally reviewed and interpreted relevant prior results, notable as below: CBC 01/30-02/09 notable for lympholeukocytosis peak of 18 wit left shift, no eosinophilia on admission, CMPs unremarkable 02/01/24 IgE to cod, corn, cow's milk, egg white, peanut, scallop, shrimp, soybean, walnut, wheat all negative. Sesame mildly elevated (<1) Sputum cultures during admission all negative - (01/04/2025) - Complement studies pending - Inflammatory markers: elevated ESR 36, CRP normalized to 0.9 - CBCd, CMP normal - TSH/T4 normal - IgE sesame, shrimp, dust mite components, alpha gal negative - Respiratory allergen panel + weed, grass, tree pollens - (10/07/2024) - Rheumatoid factor: 42 (elevated) - ESR: 43 (elevated) - CRP: 1.3 (elevated) - CBC: Within normal limits - CCP antibody: Positive - C3: 213 (elevated) - C4: 33 (within normal limits) (more content not included)... [facility] 01-10-2025 Note HNO ID: [id number] Author: JOCY HUMPHREY RN Service: ? Author Type: Registered Nurse Type: Progress Notes Filed: 01/10/2025 14:41 Note Text: Patient here for allergy testing. In January of 2024, had [employer] and stated her throat closed up. Was seen at [facility]. Did have a reaction at [facility] but was able to control her symptoms by going home and taking a cold shower. [facility] 12-25-2024 Note HNO ID: [id number] Author: SCOT BARRON MD Service: ? Author Type: Physician Type: Progress Notes Filed: 12/25/2024 09:37 Note Text: URGENT CARE [facility] Fabienne Franks is a 49 year old female. Patient presents with: Back Pain: Mid to upper back pain x 1 day Pt is here with back spasms that occur occasionally and now pain is mid back bilateral feels muscle spasms no chest pain no dyspnea no rashes no N/V no light headedness Back Pain Pertinent negatives include no chest pain, no fever, no numbness, no abdominal pain and no weakness. Review of Systems Constitutional: Negative for chills, diaphoresis, fatigue and fever. Respiratory: Negative for cough, chest tightness, shortness of breath, wheezing and stridor. Cardiovascular: Negative for chest pain and palpitations. Gastrointestinal: Negative for abdominal pain. Musculoskeletal: Positive for back pain and myalgias. Negative for neck pain and neck stiffness. Skin: Negative for rash. Neurological: Negative for weakness and numbness. Objective BP 126/82 Pulse 88 Temp 36.6 ?C (97.9 ?F) (Tympanic) Resp 18 Wt 121.2 kg (267 lb 3.2 oz) LMP 02/25/2018 SpO2 98% BMI 45.06 kg/m? Physical Exam Vitals and nursing note reviewed. Constitutional: Appearance: Normal appearance. She is not ill-appearing. Cardiovascular: Rate and Rhythm: Normal rate and regular rhythm. Heart sounds: Normal heart sounds. Pulmonary: Effort: Pulmonary effort is normal. No respiratory distress. Breath sounds: Normal breath sounds. No stridor. No wheezing, rhonchi or rales. Chest: Chest wall: No tenderness. Abdominal: Palpations: Abdomen is soft. Tenderness: There is no abdominal tenderness. Musculoskeletal: Cervical back: Normal range of motion and neck supple. No rigidity or tenderness. Comments: Pain to palpation bilateral mid back + spasms Skin: Findings: No rash. Neurological: Mental Status: She is alert and oriented to person, place, and time. Psychiatric: Mood and Affect: Mood normal. Behavior: Behavior normal. {ASSESSMENT/PLAN: 1. Acute bilateral thoracic back pain - ICD9: 724.1, ICD10: M54.6 Advised pt to call pcp and be seen tomorrow and if any worse today go to the ED - CYCLOBENZAPRINE 10 MG TABLET - METHYLPREDNISOLONE 4 MG TABLETS IN A DOSE PACK Scot Barron MD History and Record Review External record(s) reviewed: prior outpatient record. Differential Diagnoses - acute muscle strain is more likely for the following reason(s): suggested by HANDP - other back pain is less likely for the following reason(s): no systemic Sx, HANDP not suggestive Disposition The patient was discharged. Procedures [facility] 12-13-2024 Note HNO ID: [id number] Author: JANINA GOVEA, DO Service: ? Author Type: Physician Type: Progress Notes Filed: 12/15/2024 16:05 Note Text: Allergy and Immunology 12/13/2024 REFERRING PROVIDER: Jordan Ayala MD Consultation requested for an allergy/immunology evaluation. My final impression and recommendations will be communicated back to the requesting physician by way of shared medical record, fax, or US mail. CHIEF COMPLAINT: recurrent swelling episodes HISTORY OF PRESENT ILLNESS: The patient reports three episodes of angioedema, the first occurring in January while eating at [employer]. She experienced immediate pruritus of the hands and induration under the lower lip, followed by rapid swelling of the face, tongue, and throat. She took a chewable Zyrtec without relief and presented to the ER, where her throat completely closed within 10-15 minutes. Initial vitals per discharge summary were HR 113, BP 139/112, respiratory rate 24, sat 100%.She was intubated for 4 days due to persistent edema. She denies prior issues with the same meal, which she consumed weekly. She ordered the Broccoli Beef, which contains, sesame, soy, wheat, beef, wyatt, broccoli. She has eaten beef, broccoli, wheat, and soy sauce since. She is now hesitant to eat seafood because she is concerned there was cross-contamination. Since these episodes, she has been avoiding new foods, spicy foods, seafood, and seasonings due to fear of reactions. 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 She recalls one time when she brought home shrimp, ate some before bed, and awoke at 1 AM with difficulty swallowing. Unsure if she had angioedema. The second episode occurred in April at [employer], where she developed pruritus and swelling, possibly triggered by leather or an unknown contact. The third episode was in August, with sudden onset of symptoms upon stepping out of her truck, without known exposure to allergens. She denies any new medications at the time of these episodes but has a known allergy to ibuprofen, causing chest tightness and wheezing. She has a history of environmental allergies, including grass, trees, dust, and mold. She carries chewable Zyrtec, prednisone, and EpiPens but has not used the EpiPen during subsequent episodes due to uncertainty about when to administer it. Before she goes out to eat at a restaurant she takes a dose of prednisone just in case. She reports ongoing dysphagia since the intubation, attributed to ulcers from the procedure. She also notes increased joint pain since starting Plaquenil for Sjogren's syndrome and rheumatoid arthritis, diagnosed after an episode of severe photophobia and eye pain in July. She experiences pain in her legs and feet. Family history is notable for her mother having episodes of swelling in the neck, face, hands, and feet, with no definitive diagnosis. Brother has recent diagnosis of Bill's thyroiditis, presenting with fatigue and vision problems. 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 Morbid obesity HTN HLD Seizure disorder CHRISTIANA on CPAP Anxiety/Depression Chronic migraine Chronic anemia Hx of varicose veins R common iliac vein obstruction Answers submitted by the patient for this visit: Allergy Review of Symptoms (Submitted on 12/08/2024) Eye pain: Yes Eye redness: Yes Vision Disturbance: Yes Ear pain: Yes Hearing Loss: Yes Nasal Congestion: Yes Runny Nose: Yes Itchy Nose: Yes Sore throat: Yes Throat clearing: Yes Abdominal pain: Yes Trouble swallowing : Yes Diarrhea: Yes Constipation: Yes Headaches: Yes Dry skin: Yes [facility] COLLATERAL ALLERGY HISTORY Question 12/08/2024 12:01 PM EDT - Filed by Patient Do you have or have you ever been diagnosed with allergic rhinitis? Not Sure Have you ever been skin tested for allergies? Yes Do you have asthma? No Do you have or have you ever been diagnosed with eczema or atopic dermatitis? Not Sure Do you get frequent sinus infections? Do you have nasal polyps? Do you have or have you ever been diagnosed with urticaria / hives? Do you have or have you ever been diagnosed with angioedema? Do you have or have you ever been diagnosed with food allergy? Yes Do you have or have you ever been diagnosed with stinging insect allergy (bee, wasp, yellow jacket, hornet)? No Are you allergic to Penicillin antibiotics? No [facility] ALLERGY ENVIROMENTAL EXPOSURES Question 12/08/2024 12:01 PM EDT - Filed by Patient Aeroallergens Exposure What pet(s) you have at home? Cat Is there evidence of a mouse infestation in your home? No Is there evidence of a cockroach infestation in your home? No Is there evidence of mold or mildew in your home? No Is your home air conditioned during the summer? Yes Do you (more content not included)... [facility] 12-08-2024 Note HNO ID: [id number] Author: LAWANDA GIBSON LPN Service: ? Author Type: Licensed Nurse Type: Progress Notes Filed: 12/14/2024 10:58 Note Text: Patient reports that in January she had a reaction to something after eating [employer]. She was put on a ventilator for 4 days and in the hospital for a total of 2 weeks. Patient reports that she has 2 other reactions since then to something but was not food related. Patient was skin tested by another motorcycle deliverer and their test showed, cat, pine nuts, and mustard. Patient has not had any antihistamines in the last 5 days. [facility] 10-27-2024 History of Present illness Narrative VIRTUAL VISIT PROGRESS NOTE This is a virtual visit using Real Time [employer] Zoom Video Visit. It required patient-provider interaction for the medical decision making as documented below. I have communicated my name and active licensure. The patient's identity and physical location were verified at the time of this visit. Either the patient or their legal litigation claim representative has been informed of the risks and benefits of -- and alternatives to -- treatment through a remote evaluation and consents to proceed with the evaluation remotely. MD Fabienne Jon Alpa Franks October 27, 2024 Referring Provider: PCP: No primary care provider on file. Chief Complaint: Patient presents with: Joint Pain Background Rheumatologic History: Fabienne reports a significant allergic reaction in January after consuming food from [employer]. Within 10 minutes, she experienced pruritus of the hands and a sensation of swelling in the face and oral cavity. Upon arrival at the ER, her airway occluded, necessitating emergent intubation and mechanical ventilation for 4 days. Subsequent allergy testing was inconclusive. Since then, she has experienced similar reactions triggered by environmental exposures, such as the smell in a boot store and the scent of weeds at her [place]. These episodes were managed with antihistamines and cold showers, which provided relief. Approximately one month ago, she awoke with acute onset of erythema, pain, and photophobia in the right eye, described as a sensation of sand in the eye. An customer service advocate diagnosed her with a condition resembling arthritis of the eye and prescribed PF drops, which initially alleviated symptoms. However, upon tapering the medication, she began experiencing photopsia and a sensation of seeing her heartbeat in her vision. She missed a follow-up appointment last week and reports that this morning, her right eye was erythematous and watery again. She is going to make an appointment to see her customer service advocate again soon. She also notes intermittent watering of both eyes over the past week and occasional dryness. She underwent bilateral cataract surgery several years ago and reports a decline in visual acuity over the past year. She has a history of chronic upper back pain between the shoulder blades for approximately 20 years, with occasional lower back discomfort. She also reports bilateral ankle and foot pain for 3-4 years, with nocturnal exacerbation after prolonged standing during the day. Pain severity can reach 10/10. Morning stiffness and swelling are noted, predominantly in the left foot and ankle. Prolonged sitting, such as during car rides, exacerbates back pain and causes swelling and stiffness in the feet and ankles. She occasionally experiences shoulder pain and recently had difficulty ambulating due to right hip pain two days ago. She denies current use of analgesics but notes that gabapentin, previously prescribed for hot flashes, incidentally alleviated her leg pain. She reports xerostomia, requiring fluids to assist with swallowing, which has worsened since intubation. She denies oral ulcers or rashes. She also mentions a dent in one of her fingernails and a history of a lump on her hand, which has since resolved. Family history is significant for her brother's recent diagnosis of Bill's thyroiditis, presenting with fatigue and vision problems. Her mother has experienced recurrent swelling of the face, neck, hands, arms, and feet over the past 1.5-2 years, currently managed with injections. She denies family history of lupus, psoriasis, Crohn's disease, ulcerative colitis, ankylosing spondylitis, uveitis, or iritis. I first saw her 10/07/24 Based on what she describes, it seems to me that she just suffered from first episode of acute anterior uveitis last month. I asked her to ask her customer service advocate to send in the medical record to my office for further review. Anterior uveitis is often associated with underlying systemic rheumatologic autoimmune diseases, taking into consideration that she also reports history of polyarthralgia, back pain and sicca syndrome. Therefore, I will obtain a comprehensive set of inflammatory markers and serology as well as check x-ray (to look for sarcoidosis) and SI joint x-ray (to look for spondylarthritis). Her internal medicine doctor raises a concern over angioedema as the cause of her airway obstruction back in January of last year. I discussed with her that I do not diagnose or treat angioedema and would refer her to allergy medicine instead. Interim History: Patient returns for follow up, last visit Visit date not found. Labs are notable for markedly positive CCP, CCA and rheumatoid factor. Sed rate and CRP are also elevated. UA shows some bacteria and white blood cell. She reports dysuria and lower abdominal pain. PAST MEDICAL HISTORY Diagnosis Date Localization-related (focal) (partial) epilepsy and epileptic syndromes with simple partial seizures, without mention of intractable epilepsy AFTER OF FIRST CHILD PAST SURGICAL HISTORY Procedure Laterality Date CARPAL TUNNEL DELIVERY ONLY 1998 AND 2000 , low cervical ENDOSEE TUBING FOR DEVICE 12/24/2017 with EMB GASTRIC BYPASS-MORBID OBESITY 04/06/2017 gastric sleeve HYSTEROSCOPY, SURGICAL; WITH ENDOME 02/04/2018 [place] PAST SURGICAL HISTORY OF NAIL EVERSION REMOVAL OF TONSILS,<14 Y/O Tonsillectomy TUBAL LIGATION, SOCIAL HISTORY[1] Health Maintenance Depression Screening Never done Anxiety Screening Never done HIV Screening Never done Mammogram Screening Never done Lipid Screening due on 2022 Diabetes Screening due on 2022 Colorectal Cancer Screening Never done Cervical Cancer Screening due on 11/19/2022 There is no immunization history on file for this patient. Current Outpatient Medications Medication Sig Dispense Refill hydrOXYchloroQUINE (PLAQUENIL) 200 mg tablet Take 1 tablet by mouth two times a day. 180 tablet 3 nitrofurantoin monohydrate and macrocrystal (MACROBID) 100 mg capsule Take 1 capsule by mouth two times a day for 5 days. 10 capsule 0 clopidogrel (PLAVIX) 75 mg tablet Take 75 mg by mouth once daily. predniSONE (DELTASONE) 10 mg tablet Take 5 mg by mouth as needed. albuterol HFA (PROAIR HFA) 90 mcg/actuation inhaler Inhale 2 Puffs as instructed every 4 hours as needed for Wheezing/Shortness of Breath. (Patient not taking: Reported on 07/18/2019) 1 Inhaler 0 biotin 5,000 mcg ODT DAILY (Patient not taking: Reported on 10/07/2024) calcium citrate (CALCITRATE) 200 mg (950 mg) tab TWICE A DAY (Patient not taking: Reported on 10/07/2024) Cholecalciferol, Vitamin D3, 2,000 unit cap TWICE A DAY (Patient not taking: Reported on 10/07/2024) cyanocobalamin (VITAMIN B-12) 500 mcg tab tab(s) WE ibuprofen (MOTRIN) 600 mg tablet (Patient not taking: Reported on 10/07/2024) MULTIVITAMIN ORAL DAILY (Patient not taking: Reported on 10/07/2024) ferrous sulfate 325 mg (65 mg iron) tablet Take 1 tablet by mouth twice daily. (Patient not taking: Reported on 10/07/2024) No current facility-administered medications for this visit. ALLERGIES Allergen Reactions Ibuprofen Shortness of Breath but able to take Aleve Physical Exam: [facility] 02/25/2018 Impression: Seropositive rheumatoid arthritis Secondary Sjogren syndrome Inflammatory eye disease Acute cystitis Long-term use of hydroxychloroquine I think she has seropositive rheumatoid arthritis based on markedly positive rheumatoid factor/CCP, elevated inflammatory markers and polyarthralgia. I also seen that she has secondary Sjogren syndrome based on the presence of sicca syndrome and positive SSA. Rheumatoid arthritis is not classically associated acute uveitis. I start to wonder if it is scleritis/episcleritis instead of uveitis. I have not received medical records from her customer service advocate yet. The patient will remind them again. She also has acute cystitis based on her UA and symptomatology Recommendations/Plan Plan discussed with patient I will start her on Plaquenil for her RA and secondary Sjogren syndrome based on its favorable safety profile. Side effects of HCQ, especially HCQ maculopathy, were discussed. The patient will need regular eye exam. Will give her Macrobid for acute cystitis. Confirms no prior history of antibiotic allergy Return Visit: Follow-up in person February 02 at 4 PM I spent a total of 40 minutes on the date of the service which included preparing to see the patient, [id number] patient care, completing clinical documentation, obtaining and/or reviewing separately obtained history, performing a medically appropriate examination, counseling and educating the patient/family/caregiver, and ordering medications, tests, or procedures. Jordan Ayala MD Referring Provider: PCP: No primary care provider on file. [1] Social History Tobacco Use Smoking status: Never Smokeless tobacco: Never Substance Use Topics Alcohol use: No Drug use: No documented in this encounter [facility] 10-27-2024 Note HNO ID: [id number] Author: JORDAN AYALA MD Service: ? Author Type: Physician Type: Progress Notes Filed: 10/27/2024 15:44 Note Text: VIRTUAL VISIT PROGRESS NOTE This is a virtual visit using Real Time [employer] Zoom Video Visit. It required patient-provider interaction for the medical decision making as documented below. I have communicated my name and active licensure. The patient's identity and physical location were verified at the time of this visit. Either the patient or their legal litigation claim representative has been informed of the risks and benefits of -- and alternatives to -- treatment through a remote evaluation and consents to proceed with the evaluation remotely. MD Fawn Jonbilly Franks October 27, 2024 Referring Provider: PCP: No primary care provider on file. Chief Complaint: Patient presents with: Joint Pain Background Rheumatologic History: Fabienne reports a significant allergic reaction in January after consuming food from [employer]. Within 10 minutes, she experienced pruritus of the hands and a sensation of swelling in the face and oral cavity. Upon arrival at the ER, her airway occluded, necessitating emergent intubation and mechanical ventilation for 4 days. Subsequent allergy testing was inconclusive. Since then, she has experienced similar reactions triggered by environmental exposures, such as the smell in a boot store and the scent of weeds at [place]. These episodes were managed with antihistamines and cold showers, which provided relief. Approximately one month ago, she awoke with acute onset of erythema, pain, and photophobia in the right eye, described as a sensation of sand in the eye. An customer service advocate diagnosed her with a condition resembling arthritis of the eye and prescribed PF drops, which initially alleviated symptoms. However, upon tapering the medication, she began experiencing photopsia and a sensation of seeing her heartbeat in her vision. She missed a follow-up appointment last week and reports that this morning, her right eye was erythematous and watery again. She is going to make an appointment to see her customer service advocate again soon. She also notes intermittent watering of both eyes over the past week and occasional dryness. She underwent bilateral cataract surgery several years ago and reports a decline in visual acuity over the past year. She has a history of chronic upper back pain between the shoulder blades for approximately 20 years, with occasional lower back discomfort. She also reports bilateral ankle and foot pain for 3-4 years, with nocturnal exacerbation after prolonged standing during the day. Pain severity can reach 10/10. Morning stiffness and swelling are noted, predominantly in the left foot and ankle. Prolonged sitting, such as during car rides, exacerbates back pain and causes swelling and stiffness in the feet and ankles. She occasionally experiences shoulder pain and recently had difficulty ambulating due to right hip pain two days ago. She denies current use of analgesics but notes that gabapentin, previously prescribed for hot flashes, incidentally alleviated her leg pain. She reports xerostomia, requiring fluids to assist with swallowing, which has worsened since intubation. She denies oral ulcers or rashes. She also mentions a dent in one of her fingernails and a history of a lump on her hand, which has since resolved. Family history is significant for her brother's recent diagnosis of Bill's thyroiditis, presenting with fatigue and vision problems. Her mother has experienced recurrent swelling of the face, neck, hands, arms, and feet over the past 1.5-2 years, currently managed with injections. She denies family history of lupus, psoriasis, Crohn's disease, ulcerative colitis, ankylosing spondylitis, uveitis, or iritis. I first saw her 10/07/24 Based on what she describes, it seems to me that she just suffered from first episode of acute anterior uveitis last month. I asked her to ask her customer service advocate to send in the medical record to my office for further review. Anterior uveitis is often associated with underlying systemic rheumatologic autoimmune diseases, taking into consideration that she also reports history of polyarthralgia, back pain and sicca syndrome. Therefore, I will obtain a comprehensive set of inflammatory markers and serology as well as check x-ray (to look for sarcoidosis) and SI joint x-ray (to look for spondylarthritis). Her internal medicine doctor raises a concern over angioedema as the cause of her airway obstruction back in January of last year. I discussed with her that I do not diagnose or treat angioedema and would refer her to allergy medicine instead. Interim History: Patient returns for follow up, last visit Visit date not found. Labs are notable for markedly positive CCP, CCA and rheumatoid factor. Sed rate and CRP (more content not included)... [facility] 10-07-2024 History of Present illness Narrative Radiology Service Progress Note PATIENT NAME: Fabienne Franks DATE OF SERVICE: October 07, 2024 TIME: 10:29 AM PATIENT IDENTITY VERIFICATION COMPLETED USING TWO (2) IDENTIFIERS: Name and Date of confirmed by patient verbally. FALL SCREENING: Has the patient had 2 falls in the last year or 1 fall with injury or currently using an Ambulatory Assistive Device (Walker, Cane, Wheelchair, Crutches, etc.)? No PATIENT GENDER DATA: Assigned female at . status: : No status: NO. PATIENT RELEVANT IMPLANT DATA REVIEWED: Not Applicable PATIENT PRESENTS WITH AN IMPLANTABLE OR ATTACHED HEAT SEALING MACHINE OPERATOR: No RADIOLOGY DEPARTMENT: General X-ray: Exam(s) Completed: Chest X-Ray Spine X-Ray(s): Cervical AP / LAT Pelvis X-Ray: sacroiliac joints Lower Extremity X-Ray(s): Foot, Bilateral Upper Extremity X-Ray(s): Hand, bilateral PERIPHERAL IV DATA: Not applicable SIGNED BY: RT Uri(R) October 07, 2024 10:29 AM documented in this encounter [facility] 10-07-2024 Note HNO ID: [id number] Author: RUFINA PABLO RT(R) Service: Radiology Author Type: Addictions Counselor Type: Progress Notes Filed: 10/07/2024 10:30 Note Text: Radiology Service Progress Note PATIENT NAME: Fabienne Franks DATE OF SERVICE: October 07, 2024 TIME: 10:29 AM PATIENT IDENTITY VERIFICATION COMPLETED USING TWO (2) IDENTIFIERS: Name and Date of confirmed by patient verbally. FALL SCREENING: Has the patient had 2 falls in the last year or 1 fall with injury or currently using an Ambulatory Assistive Device (Walker, Cane, Wheelchair, Crutches, etc.)? No PATIENT GENDER DATA: Assigned female at . status: : No status: NO. PATIENT RELEVANT IMPLANT DATA REVIEWED: Not Applicable PATIENT PRESENTS WITH AN IMPLANTABLE OR ATTACHED HEAT SEALING MACHINE OPERATOR: No RADIOLOGY DEPARTMENT: General X-ray: Exam(s) Completed: Chest X-Ray Spine X-Ray(s): Cervical AP / LAT Pelvis X-Ray: sacroiliac joints Lower Extremity X-Ray(s): Foot, Bilateral Upper Extremity X-Ray(s): Hand, bilateral PERIPHERAL IV DATA: Not applicable SIGNED BY: RT Uri(R) October 07, 2024 10:29 AM [facility] 10-07-2024 Note HNO ID: [id number] Author: JORDAN AYALA MD Service: ? Author Type: Physician Type: Progress Notes Filed: 10/07/2024 12:28 Note Text: Jordan Ayala MD Fabienne Franks October 06, 2024 Referring Provider: PCP: No primary care provider on file. Chief Complaint: Patient presents with: Consult HPI:Fabienne Franks is a 49 year old female who comes here today for ?autoimmune disease. Fabienne reports a significant allergic reaction in January after consuming food from [employer]. Within 10 minutes, she experienced pruritus of the hands and a sensation of swelling in the face and oral cavity. Upon arrival at the ER, her airway occluded, necessitating emergent intubation and mechanical ventilation for 4 days. Subsequent allergy testing was inconclusive. Since then, she has experienced similar reactions triggered by environmental exposures, such as the smell in a boot store and the scent of weeds at her [place]. These episodes were managed with antihistamines and cold showers, which provided relief. Approximately one month ago, she awoke with acute onset of erythema, pain, and photophobia in the right eye, described as a sensation of sand in the eye. An customer service advocate diagnosed her with a condition resembling arthritis of the eye and prescribed PF drops, which initially alleviated symptoms. However, upon tapering the medication, she began experiencing photopsia and a sensation of seeing her heartbeat in her vision. She missed a follow-up appointment last week and reports that this morning, her right eye was erythematous and watery again. She is going to make an appointment to see her customer service advocate again soon. She also notes intermittent watering of both eyes over the past week and occasional dryness. She underwent bilateral cataract surgery several years ago and reports a decline in visual acuity over the past year. She has a history of chronic upper back pain between the shoulder blades for approximately 20 years, with occasional lower back discomfort. She also reports bilateral ankle and foot pain for 3-4 years, with nocturnal exacerbation after prolonged standing during the day. Pain severity can reach 10/10. Morning stiffness and swelling are noted, predominantly in the left foot and ankle. Prolonged sitting, such as during car rides, exacerbates back pain and causes swelling and stiffness in the feet and ankles. She occasionally experiences shoulder pain and recently had difficulty ambulating due to right hip pain two days ago. She denies current use of analgesics but notes that gabapentin, previously prescribed for hot flashes, incidentally alleviated her leg pain. She reports xerostomia, requiring fluids to assist with swallowing, which has worsened since intubation. She denies oral ulcers or rashes. She also mentions a dent in one of her fingernails and a history of a lump on her hand, which has since resolved. Family history is significant for her brother's recent diagnosis of Bill's thyroiditis, presenting with fatigue and vision problems. Her mother has experienced recurrent swelling of the face, neck, hands, arms, and feet over the past 1.5-2 years, currently managed with injections. She denies family history of lupus, psoriasis, Crohn's disease, ulcerative colitis, ankylosing spondylitis, uveitis, or iritis. PAST MEDICAL HISTORY Diagnosis Date Localization-related (focal) (partial) epilepsy and epileptic syndromes with simple partial seizures, without mention of intractable epilepsy AFTER OF FIRST CHILD PAST SURGICAL HISTORY Procedure Laterality Date CARPAL TUNNEL DELIVERY ONLY 1998 AND 2000 , low cervical ENDOSEE TUBING FOR DEVICE 12/24/2017 with EMB GASTRIC BYPASS-MORBID OBESITY 04/06/2017 gastric sleeve HYSTEROSCOPY, SURGICAL; WITH ENDOME 02/04/2018 [place] PAST SURGICAL HISTORY OF NAIL EVERSION REMOVAL OF TONSILS,<12 Y/O Tonsillectomy TUBAL LIGATION, Social History Tobacco Use Smoking status: Never Smokeless tobacco: Never Substance Use Topics Alcohol use: No Drug use: No Health Maintenance: Depression Screening Never done Anxiety Screening Never done Hepatitis C Screening Never done HIV Screening Never done Mammogram Screening Never done Lipid Screening due on 2022 Diabetes Screening due on 2022 Colorectal Cancer Screening Never done Cervical Cancer Screening due on 11/19/2022 There is no immunization history on file for this patient. Current Outpatient Medications Medication Sig Dispense Refill clopidogrel (PLAVIX) 75 mg tablet Take 75 mg by mouth once daily. predniSONE (DELTASONE) 10 mg tablet Take 5 mg by mouth as needed. cyanocobalamin (VITAMIN B-12) 500 mcg tab tab(s) WE albuterol HFA (PROAIR HFA) 90 mcg/actuation inhaler Inhale 2 Puffs as instructed every 4 hours as needed for Wheezing/Shortness of Nataly (more content not included)... [facility] 05-17-2024 Radiology Diagnostic study note [facility] 04-07-2024 Evaluation note Diagnosis Onset Date Resolution Allergic angioedema due to ingested food acute April 07, 2 025 2:24pm Anaphylaxis acute April 07, 2024 2:24pm Celiac disease acute April 072024 2:24pm Dysphagia acute April 07, 2024 2:24pm Vasculitis acute April 07, 2024 2:24pm Allergic angioedema due to ingested food acute April 25, 2024 2:59pm Anaphylaxis acute April 2:59pm Celiac disease acute April 032024 2:59pm Dysphagia acute April 25, 2024 2:59pm Vasculitis acute April 25, 2024 2:59pm Iliac vein stenosis, right acute June 08, 2024 2:26pm Cervical myofascial strain acute June 21, 2024 4:36pm Lumbar strain acute June 21, 2024 4:36pm Thoracic myofascial strain acute June 21, 2024 4:36pm [facility] Work Phone: 1(273) 328-807901-16-2025 [facility]01-02-2025 Evaluation note* Diagnosis Onset Date Resolution Status Admit Date Anaphylaxis acute March 03, 2024 2:49pm Celiac disease acute March 2:49pm Dysphagia acute March 03 025 2:49pm Dysphagia acute March 17, 2024 6:41am Allergic angioedema due to ingested food acute April 07 2:24pm Anaphylaxis acute April 07, 2024 2:24pm Celiac disease acute April 072024 2:24pm Dysphagia acute April 07, 2024 2:24pm Vasculitis acute April 07, 2024 2:24pm Allergic angioedema due to ingested food acute April 25, 2 025 2:59pm Anaphylaxis acute April 2:59pm Celiac disease acute April 032024 2:59pm Dysphagia acute April 25, 2024 2:59pm Vasculitis acute April 25, 2024 2:59pm Iliac vein stenosis, right acute June 08, 2024 2:26pm Cervical myofascial strain acute June 21, 2024 4:36pm Lumbar strain acute June 21, 2024 4:36pm Thoracic myofascial strain acute June 21, 2024 4:36[facility] Work Phone: 1(650) 706-430812-11-2024 [facility]12-02-2024 NoteAcceptable Specimen? Acceptable Specimen(Evaluation not needed) Gram Stain 2+ White Blood Cells 1+ Red Blood Cells 3+ Gram positive cocci 1+ Gram negative rodsLake County Memorial Hospital - WestComment on above:Performed By: #### [id number], M100.2000 ####[facility] [address] [place], [phone] Evaluation note* Diagnosis Onset Date Resolution Status Admit Date Acute airway obstruction acute January 31, 2024 6:43pm Acute respiratory distress acute January 31, 2024 6:43pm Allergic angioedema due to ingested food acute January 30 6:43pm Anaphylaxis acute January 31, 2024 6:43pm BMI 40.0-44.9, adult acute Dece mber 2023 6:43pm Dysphagia acute January 31, 2024 6:43pm Sinus tachycardia acute Decembe r 2023 6:43pm Hyperlipidemia chronic January 302023 6:43pm Hypertension chronic January 6:43pm CHRISTIANA (obstructive sleep apnea) chroni c January 31, 2024 6:43pm Anaphylaxis acute March 03, 2024 2:49pm Celiac disease acute March 2:49pm Dysphagia acute March 03, 2 025 2:49pm Dysphagia acute March 17, 2024 6:41am Allergic angioedema due to ingested food acute April 07 2:24pm Anaphylaxis acute April 07, 2024 2:24pm Celiac disease acute April 072024 2:24pm Dysphagia acute April 07, 2024 2:24pm Vasculitis acute April 07, 2024 2:24pm Allergic angioedema due to ingested food acute April 25, 2 025 2:59pm Anaphylaxis acute April 2:59pm Celiac disease acute April 032024 2:59pm Dysphagia acute April 25, 2024 2:59pm Vasculitis acute April 25, 2024 2:59pm [facility] Work Phone: 1(928) 297-226903-18-2024 Discharge summary Author Wayne Lara [facility] May 19, 2023 12:54am Note Date/Time May 18, 2023 11: 10pm [facility] Medical Records Department [address] [place] [address] Emergency Department Summary 05/18/23 MR#: [id number] Acct: [id number] Name: FABIENNE FRANKS Rep #:[id number] : 1975 48 From: Wayne Lara MD PCP: Dr. Mynor Garcia MD Status:R EG ER Location: ED HPI History of Present Illness Chief Complaint: Headache Informant: patient Narrative Narrative: Patient presents with right-sided headache going down the back of her neck and into her right upper chest, discomfort in her chest that hurts more to take a deep breath, and pain in her right lower quadrant of her abdomen. She states all of this started yesterday, when she woke up with a headache and neck pain. She denies any neurologic symptoms. She had said some sensitivity to light, yesterday she had an episode of vomiting, she does not know if it was associatedwith severe headache or abdominal pain at that time. States she does not usually get headaches but she did have headaches similar to this couple months ago. Of note just 5 days ago she had a procedure where stents were placed in her lower extremity venous system. She states it was due to varicose veins thatwere pinched off. She is on aspirin and clopidogrel as a result of this, no other new medications. She denies any head injuries lately. She denies anything that she can think of that would result in straining her neck although she admits she did wake up withthe symptoms yesterday. She has had some feelings of being hot, denies any known fevers or chills. Denies any coughing or shortness of breath. She statesprior to this has been placed she was having pain and swelling in her leg, thereis been no major changes there she is wearing her compression stockings. [facility] Medical History Abnormal uterine bleeding Anemia Arthritis Back pain Chest pain Chronic back pain Chronic fatigue Colon cancer screening CPAP (continuous positive airway pressure) dependence Family history of early CAD Generalized anxiety disorder Hair loss disorder History of edema History of pain when walking Hyperlipidemia Hypertension Leg cramps Lung nodule seen on imaging study Lung nodules Migraine headache Neck pain Non-smoker Obesity CHRISTIANA (obstructive sleep apnea) Preventative health care Seizures Sleep apnea Tiredness UTI (urinary tract infection) Varicose veins of both lower extremities Vitamin B12 deficiency Weight loss Home Medications fluoxetine 20 mg tablet 20 mg PO BID #180 tabs 09/03/22 [Rx Last Taken Unknown] mecobalamin (vitamin B12) 10,000 mcg solution for injection 10,000 mcg IM .once a month 12/15/22 [History Last Taken Unknown] cyanocobalamin (vitamin B-12) 1,000 mcg/mL injection solution See Rx Instructions .Route .COMPLEX #3 mL 01/02/23 [Rx Last Taken Unknown] syringe with needle, safety 3 mL 25 gauge x 1 (Easy Touch SheathLock Syringe with Needle) #100 ea 03/18/23 [Rx Last Taken Unknown] clopidogrel 75 mg tablet (Plavix) 75 mg PO .daily #90 tabs 05/13/23 [Rx Last Taken Unknown] Allergy/AdvReac Type Severity Reaction Status Date / Time ibuprofen [From Motrin] AdvReac Intermediate Shortness Verified 05/18/23 21:43 of breath Family History Father Diabetes Heart disease Lung cancer smoker- agent orange Arthritis Cancer Mother High cholesterol Surgical History History of History of carpal tunnel surgery of left wrist History of endometrial ablation History of gastric stapling History of tonsillectomy History of tubal ligation Hx laparoscopic cholecystectomy Hx of bilateral cataract extraction Status post hysterectomy (~10/17/21) Social History Smoking Status: Never smoker alcohol intake: never substance use type: does not use caffeine: Yes what type of physical activity do you participate in: none seatbelt use: always do you feel safe at home: Yes additional social history: [employer] in [place] patient works at [employer] ROS ROS ED Constitutional Constitutional ED: Denies chills or fever(s) Eyes Eyes: Reports photophobia; Denies blurry vision or diplopia ENT ENT ED: Denies ear pain, rhinorrhea or sore throat Cardiovascular Cardiovascular: Reports chest pain; Denies palpitations Respiratory/Chest Respiratory/Chest: Denies cough or dyspnea Gastrointestinal Gastrointestinal: Reports abdominal pain; Denies diarrhea, hematemesis, hematochezia or melena Genitourinary Genitourinary ED: Denies dysuria, hematuria or urinary frequency Musculoskeletal Musculoskeletal: Reports neck pain; Denies back pain or myalgias Integumentary Denies abscess or rash Neurologic Neurologic: Reports headache(s); Denies paresthesias or weakness Psychiatric Psychiatric: Denies suicidal ideation or suicidal thoughts EXAM Physical Exam Const Vital Signs: 05/18/23 21:43 05/18/23 23:32 05/19/23 00:20 Temperature 97 F L Temperature Source Temporal Pulse Rate 89 74 79 Respiratory Rate 16 16 16 Blood Pressure 151/79 H 132/82 H 107/68 Blood Pressure Mean 103 98 81 Pulse Ox 100 98 97 Oxygen Delivery Method Room Air Room Air Positive well nourished, well developed and obese General Appearance ED: well developed and NAD Nutritional Appearance: obese HEENT Reports normocephalic and moist mucous membranes atraumatic Eyes PERRL, EOMs intact bilaterally and conjunctivae normal Eyes Narrative: photophobia Neck no lymphadenopathy, supple and no meningeal signs Neck Narrative: Tender in the right posterior cervical spine spinal musculature going down into the rhomboids and more lateral portions of the upper trapezius as well. Also tender in the insertion of the right sternocleidomastoid and surrounding areas around that clavicle. Normal on inspection. No mastoid process tenderness. Full range of motion of the neck, no meningismus. General: tenderness Chest Wall inspection of chest normal Resp normal respiratory effort and clear to auscultation bilaterally Cardio regular rate, regular rhythm and no murmurs Rate: Negative for tachycardic GI non-distended GI Narrative: Mild diffuse lower abdominal tenderness, but not immediate suprapubic tenderness. No guarding or rebound tenderness. No upper abdominal tenderness negative Horton. Auscultation: normoactive bowel sounds Palpation: soft Back/Spine no CVA tenderness General Back: other FROM Extremity normal to inspection and full ROM General Extremety ED: Negative for pulses abnormal or tenderness General Extremity: Negative for pulses abnormal Neuro oriented x3 and CN's II-XII intact bilaterally Sensorium / Orientation: awake and alert Speech: speech normal Gait (Neuro): normal gait Motor Exam: strength 5/5 throughout Psych mental status grossly normal Skin no rashes or lesions noted and no wounds Skin Narrative: 2 small surgical incisions each with [address] both inguinal areas benign appearing without discharge, significant tenderness, signs of infection, or dehiscence. Lesions: no lesions Rashes: no rashes MDM MDM MDM Narrative Medical decision making narrative: Patient presents with headache, vomiting, abdominal pain, and also today has been having chest discomfort all day that she states has a bit of a pleuritic component but denies any dyspnea. Based on my exam I think that the chest and neck discomfort are all musculoskeletal which we talked about. She is understanding of that. We did some test to rule out other etiologies of this including a CT of the head to evaluate for intracranial hemorrhage and she is now on clopidogrel that she was not on before, and EKG which is normal, chest x-ray 2 views my interpretation negative, which radiology is in agreement with, and a troponin that is negative. Given that her PERC score is 0 I do not think she needs further workup for pulmonary embolus in context of all of this. I reviewed her records of her recent procedure. 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 It seems part of the reasonthey took her for the venogram was that she was having pelvic pain. With regards to her abdominal pain, she seemed to indicate that this was something new and was worse when she was having a bowel movement earlier, different than her other pelvic pain, so we sent her for CT of the abdomen/pelvis with IV contrast to rule out appendicitis. I reviewed the CT images, which show her right common iliac vein stent, fatty liver, other couple incidental findings, I reviewed the radiologist interpretation and I agree with it, there is nothing acute, including acute vascular complications of the recent manipulation. Patient was given Reglan while she was getting workup, it helped her headache a little bit. She still having some abdominal discomfort although she was never in any distress. Will give her something for pain prior to discharge, she is due to follow-up postoperatively but does not have the appointment yet is post to receive a phone call from the office tomorrow. Unknown if this could be related to her stent, it is in the general area where she is having pain. History & Record Review Additional record(s) reviewed:: Prior outpatient record Lab Data Attestation: I reviewed the patient's lab results. Labs: Laboratory Results - last 24 hr 05/18/23 05/18/23 23:17 23:34 WBC 8.8 RBC 3.68 L Hgb 10.0 L Hct 31.3 L MCV 85.1 MCH 27.2 MCHC 31.9 L RDW Std Deviation 42.4 RDW Coeff of Aretha 13.6 Plt Count 216 MPV 9.7 Immature Gran % (Auto) 0.500 Neut % (Auto) 68.5 Lymph % (Auto) 22.2 Cloud % (Auto) 7.6 Eos % (Auto) 1.0 Baso % (Auto) 0.2 Absolute Neuts (auto) 6.0 Absolute Lymphs (auto) 1.95 Nucleated RBC % 0 Sodium 138 Potassium 3.5 Chloride 106 Carbon Dioxide 25.0 Anion Gap 7 BUN 15 Creatinine 0.70 Estim Creat Clear Calc 128.28 Est GFR (MDRD) Af Amer 116 Est GFR (MDRD) Non-Af 96 BUN/Creatinine Ratio 21.4 H Glucose 88 Calcium 9.8 Troponin I High Sens 5 Urine Color Yellow Urine Clarity Clear Urine pH 5.0 Ur Specific [place] 1.020 Urine Protein Negative Urine Glucose (UA) Normal Urine Ketones Negative Urine Occult Blood Negative Urine Nitrite Negative Urine Bilirubin Negative Urine Urobilinogen Normal Ur Leukocyte Esterase 25 H Urine RBC 10-25 SEEN Urine WBC 0-5 SEEN Ur Squamous Epith Cells 10-25 SEEN Urine Bacteria 2+ Urine Mucus 0 SEEN Radiography Diagnostic Testing: Clinical Impression(s) from Imaging Studies Brain CT 05/18/23 23:00 IMPRESSION: Negative head/brain CT without intravenous contrast. Electronically Signed: Scot Grayson MD at 0:40 EDT , Abdomen/Pelvis CT 05/18/23 23:01 IMPRESSION: 1. Fatty liver. 2. Cholecystectomy. 3. Stents within the right common iliac vein. 4. Hysterectomy. 5. No acute abdominal pelvic abnormality. 6. Status post gastric sleeve surgery. No obstruction. Electronically Signed: Scot Grayson MD at 0:42 EDT , Rhythm Strip Rhythm Strip: Sinus Rhythm Rate: 80 Ectopy: None EKG Initial EKG: Attestation: I personally reviewed and interpreted this EKG as follows: Interpretation: Sinus Rhythm and No Acute Injury Pattern Comments: nml EKG Discharge Plan Triage Chief Complaint: Headache ED Provider: Wayne Lara Dx/Rx/DC Orders Clinical Impression: Acute headache, Musculoskeletal neck pain, Musculoskeletal chest pain, Lower abdominal pain Instructions: Abdominal Pain, ED, Migraine (Classical) Prescriptions: No Action mecobalamin (vitamin B12) 10,000 mcg recon soln 10,000 mcg IM .once a month fluoxetine 20 mg tablet 20 mg PO BID Qty: 180 1RF Rx Instructions: administer in the morning and at noon/midday clopidogrel [Plavix] 75 mg tablet 75 mg PO .daily Qty: 90 3RF cyanocobalamin (vitamin B-12) 1,000 mcg/mL solution See Rx Instructions .ROUTE .COMPLEX Qty: 3 3RF Dose Instruction: INJECT 1000 MCG (1ML) INTRAMUSCULARLY ONCE A MONTH Rx Instructions: INJECT 1000 MCG (1ML) INTRAMUSCULARLY ONCE A MONTH (DME) Easy Touch SheathLock Syrg-Ndl 3 mL 25 gauge x 1 syringe See Rx Instructions .Route Qty: 100 1RF Rx Instructions: As directed for B-12 injections Primary Care Provider: Mynor Garcia Referrals: Mynor Garcia MD [Primary Care Provider] - 3-5 Days if not improving Marck Thompson MD [Med Staff - Active Staff] - (As directed for follow-up) Disposition Disposition: Home, Self Care What to do if you have Problems For any increased pain, shortness of breath, bleeding, nausea or vomiting, chestpain, or any unexpected problems, contact your Primary Care Provider. Call [facility] ([phone]) or report to the closest Emergency Room. Call 911 if necessary. 05/19/23 0054 <Electronically signed by Wayne Lara MD> Cosigner Signature (if applicable): CC: Dr. Mynor Garcia MD; Dr. Marck Thompson MD ~ Signed [facility] Work Phone: [phone]) 540-562603-13-2024 History and physical note Author Marck Thompson [facility] May 13, 2023 9:01am Note Date/Time May 13, 2023 9:0 1am [facility] Medical Records Department [address] [place] [address] History & Physical Exam 05/13/23 0858 MR#: [id number] Acct: [id number] Name: FABIENNE FRANKS Rep #:[id number] : 1975 48 From: Marck Thompson MD PCP: Dr. Mynor Garcia MD Status:R [facility] Location: [facility] HPI - General HPI Narrative FABIENNE FRANKS, is a 48 F who presents with bilateral lower extremity varicose veins. Also has increased pelvic pain/pressure, worse with physical activity, dyspareunia. No prior DVT or venous procedures. Did have hysterectomy for bleeding fibroids, bladder sling, x 3. CT did not reveal varicosities in the pelvis or enlarged ovarian vein PFSH Medical History Abnormal uterine bleeding Anemia Arthritis Back pain Chest pain Chronic back pain Chronic fatigue Colon cancer screening CPAP (continuous positive airway pressure) dependence Family history of early CAD Generalized anxiety disorder Hair loss disorder History of edema History of pain when walking Hyperlipidemia Hypertension Leg cramps Lung nodule seen on imaging study Lung nodules Migraine headache Neck pain Non-smoker Obesity CHRISTIANA (obstructive sleep apnea) Preventative health care Seizures Sleep apnea Tiredness UTI (urinary tract infection) Varicose veins of both lower extremities Vitamin B12 deficiency Weight loss Home Medications fluoxetine 20 mg tablet 20 mg PO BID #180 tabs 09/03/22 [Rx Last Taken Unknown] mecobalamin (vitamin B12) 10,000 mcg solution for injection 10,000 mcg IM .once a month 12/15/22 [History Last Taken Unknown] cyanocobalamin (vitamin B-12) 1,000 mcg/mL injection solution See Rx Instructions .Route .COMPLEX #3 mL 01/02/23 [Rx Last Taken Unknown] syringe with needle, safety 3 mL 25 gauge x 1 (Easy Touch SheathLock Syringe with Needle) #100 ea 03/18/23 [Rx Last Taken Unknown] Allergy/AdvReac Type Severity Reaction Status Date / Time ibuprofen [From Motrin] AdvReac Intermediate Shortness Verified 04/06/23 15:20 of breath Family History Father Diabetes Heart disease Lung cancer smoker- agent orange Arthritis Cancer Mother High cholesterol Surgical History History of History of carpal tunnel surgery of left wrist History of endometrial ablation History of gastric stapling History of tonsillectomy History of tubal ligation Hx laparoscopic cholecystectomy Hx of bilateral cataract extraction Status post hysterectomy (~10/17/21) Social History Smoking Status: Never smoker alcohol intake: never substance use type: does not use caffeine: Yes what type of physical activity do you participate in: none seatbelt use: always do you feel safe at home: Yes additional social history: [employer] in [place] patient works at [employer] ROS Constitutional Constitutional: Denies chills, fever(s), frequent falls, lethargy or weakness Eyes Eyes: Denies blind spots, change in vision or loss of vision ENT HEENT: Denies bleeding gums, hoarseness or sore throat Cardiovascular Cardiovascular: Denies abdominal pain, bluish discoloration of hand/feet, chest pain with activity, claudication, cold extremities, cyanosis, dyspnea on exertion, erythema on extremities, irregular heart rhythm, leg edema, leg ulcers, numbness in extremities or weakness in extremities Respiratory/Chest Respiratory/Chest: Denies cough, excessive phlegm production, shortness of breath at rest, shortness of breath with exertion or wheezing Gastrointestinal Gastrointestinal: Denies anorexia, change in stool character, constipation, diarrhea, melena or rectal bleeding Genitourinary Genitourinary: Denies dysuria or hematuria Musculoskeletal Musculoskeletal: Denies abnormal gait Integumentary Integumentary: Reports other Details: ; Denies erythema, non-healing lesions or wounds Neurologic Neurologic: Denies abnormal speech, focal weakness, headache(s), loss of vision,numbness, paresthesias or sensory deficit Hematologic/Lymphatic Hematologic/Lymphatic: Denies easy bleeding, easy bruising or lymphadenopathy Vital Signs Vital Signs Vital Signs: Weight Weight: 259 lb Body Mass Index (BMI) 44.4 Physical Exam Const alert, oriented x3, no apparent distress and healthy appearing General Appearance: cooperative; Negative for combative or lethargic Orientation / Consciousness: awake Exam Limitations: no limitations HEENT Head and Scalp: normocephalic and atraumatic Eyes EOMs intact bilaterally General Eye: normal appearance of both eyes Neck full ROM, no lymphadenopathy, thyroid normal and No no carotid bruits General: trachea midline; Negative for lymphadenopathy or tenderness Thyroid: thyroid normal Lymph Lymphatic: Negative for no lymphadenopathy noted Resp normal respiratory effort and no use of accessory muscles Effort and Inspection: Negative for labored, stridor or audible wheezes Cardio regular rate and regular rhythm Peripheral Pulses: brachial pulses present and radial pulses present Back/Spine Cervical Spine: cervical ROM normal Extremity full ROM, normal capillary refill and no clubbing, cyanosis or edema Skin no rashes or lesions noted and no wounds Neuro oriented x3, CN's II-XII intact bilaterally, no focal motor deficits and no sensory deficits noted Psych thought process normal, cooperative, affect normal, speech normal and activity/motor behavior normal Results Lab / Micro Data 05/13/23 08:28 05/13/23 08:28 Assessment & Plan Assessment/Plan (1) Varicose veins of bilateral lower extremities with pain: PLAN: -venogram 05/13/23 09 <Electronically signed by Marck Thompson MD> Cosigner Signature (if applicable): CC: Dr. Mynor Garcia MD; Dr. Marck Thompson MD~ Signed [facility] Work Phone: [phone]) 474-264804-08-2022 NotePap Smear Specimen AdequacyApril 2021 4:53pmCommentSatisfactory for evaluation. Endocervical and/or squamous metaplasticcells (endocervical component)are present.[facility] INTER[facility]ED A#[id number] [facility] Work Phone: Comment on above:Satisfactory for evaluation. Endocervical and/or squamous metaplasticcells (endocervical component)are present.06-07-2021 NotePap Smear Specimen AdequacyApril 2021 4:53pmComment. Satisfactory for evaluation. Endocervical and/or squamous metaplasticcells (endocervical component)are present.[facility] A#[id number] [facility] Work Phone: Comment on above:Satisfactory for evaluation. Endocervical and/or squamous metaplasticcells (endocervical component)are present.06-07-2021 NotePap Smear Specimen AdequacyApril 2021 4:53pmComment. Satisfactory for evaluation. Endocervical and/or squamous metaplasticcells (endocervical component)are present.[facility] A#[id number] County Memorial Hospital [facility] Work Phone: Comment on above:Satisfactory for evaluation. Endocervical and/or squamous metaplasticcells (endocervical component)are present.Evaluation note* Diagnosis Onset Date Resolution Status Hair loss disorder acute Varicose veins of both lower extremities acute Bilateral otitis media acute Abnormal uterine bleeding ac [employer] Dyspareunia acute [id number] acute Hypoactive sexual desire disorder acute Mixed incontinence urge and stress acute [facility] Work Phone: Evaluation note* Diagnosis Onset Date Resolution Status Bilateral otitis media acute Abnormal uterine bleeding ac [employer] Dyspareunia acute [id number] acute Hypoactive sexual desire disorder acute Mixed incontinence urge and stress acute Chronic back pain chronic Hair loss disorder chronic Varicose veins of both lower extremities chronic Abnormal uterine bleeding ac [employer] Dyspareunia acute Back pain acute Segmental and somatic dysfunction of thoracic region acute Back pain acute Segmental and somatic dysfunction of thoracic region acute UTI (urinary tract infection) acute [facility] Work Phone: Evaluation note* Diagnosis Onset Date Resolution Status Bilateral otitis media acute Abnormal uterine bleeding ac [employer] Dyspareunia acute [id number] acute Hypoactive sexual desire disorder acute Mixed incontinence urge and stress acute Chronic back pain chronic Hair loss disorder chronic Varicose veins of both lower extremities chronic Abnormal uterine bleeding ac [employer] Dyspareunia acute Back pain acute Segmental and somatic dysfunction of thoracic region acute Back pain acute Segmental and somatic dysfunction of thoracic region acute UTI (urinary tract infection) acute Dysuria acute UTI (urinary tract infection) acute [facility] Work Phone: Evaluation note* Diagnosis Onset Date Resolution Status Dysuria acute UTI (urinary tract infection) acute Dyspareunia acute Obesity acute Status post hysterectomy acu te Status post hysterectomy acu te Status post hysterectomy acu te Vitamin B12 deficiency acute Varicose veins of both lower extremities chronic Encounter for preventative a dult health care examination noneactive Left foot pain noneactive [facility] Work Phone: Evaluation note* Diagnosis Onset Date Resolution Status Breast pain, left noneactive Family history of early CAD acute Generalized anxiety disorder chronic Hyperlipidemia chronic Hypertension chronic [facility] Work Phone: Evaluation note* Diagnosis Onset Date Resolution Status Family history of early CAD acute Generalized anxiety disorder chronic Hyperlipidemia chronic Hypertension chronic Wound, open, nose, septum ac [employer] [facility] Work Phone: Evaluation note* Diagnosis Onset Date Resolution Status Chronic fatigue chronic Generalized anxiety disorder chronic CHRIST[place] (obstructive sleep apnea) chronic UTI (urinary tract infection) acute Back pain acute Erosion of transobturator mid-urethral sling acute Encounter for routine gynecological examination noneactive [facility] Work Phone: Evaluation note* Diagnosis Onset Date Resolution Status Erosion of transobturator mid-urethral sling acute Encounter for routine gynecological examination noneactive Preventative health care acu te Chronic fatigue chronic Generalized anxiety disorder chronic CHRIST[place] (obstructive sleep apnea) chronic [facility] Work Phone: Evaluation note* Diagnosis Onset Date Resolution Status Erosion of transobturator mid-urethral sling acute Encounter for routine gynecological examination noneactive Preventative health care acu te Chronic fatigue chronic Generalized anxiety disorder chronic CHRIST[place] (obstructive sleep apnea) chronic Varicose veins of both lower extremities chronic [facility] Work Phone: Evaluation note* Diagnosis Onset Date Resolution Status Varicose veins of both lower extremities chronic Pelvic congestion syndrome c hronic [facility] Work Phone: Evaluation note* Diagnosis Onset Date Resolution Status Varicose veins of both lower extremities chronic Pelvic congestion syndrome c hronic Varicose veins of bilateral lower extremities with shannon n acute [facility] Work Phone: Evaluation note* Diagnosis Acute anterior uveitis Acute and subacute iridocyclitis, unspecified Polyarthralgia Pain in joint, multiple sites documented in this encounter [facility] note* Diagnosis Seropositive rheumatoid arthritis (HCC)- Primary Rheumatoid arthritis Acute cystitis without hematuria Acute cystitis Sjogren's syndrome with keratoconjunctivitis sicca (HCC) Long-term use of hydroxychloroquine Encounter for long-term (current) use of other medications [facility] Work Phone: Hospital Discharge instructions Additional Instructions Follow-up with your PCP and return for any other concerns.[facility] Work Phone: Reason for referral (narrative)No reason for referral information availableWMercy Health Work Phone: Summary Purpose Family History No Family History Records Found Relationship Condition Age at Onset Recorded Date/T jose father Diabetes mellitus Unknown Cardiac disease Unknown Malignant neoplasm of lung Unknown Relationship Condition Age at Onset Recorded Date/T jose father Diabetes mellitus Unknown Cardiac disease Unknown Malignant neoplasm of lung Unknown Arthritis Unknown Malignant neoplasm Unknown mother High blood cholesterol Unknown Advance Directives No Advanced Directives Records Found Advance Directive Response Recorded Date/ Time Living Will No November 02 7:10pm Power of Activity Therapy Specialist No November 03, 2019 7:10pm Advance Directive Response Recorded Date/ Time Living Will No July 04, 2021 5: 23pm Power of Activity Therapy Specialist No July 04, 2021 5:23pm Advance Directive Response Recorded Date/ Time Living Will No October 17 5:59pm Power of Activity Therapy Specialist No October 17 5:59pm Advance Directive Response Recorded Date/ Time Living Will No December 10 4:37am Power of Activity Therapy Specialist No December 10, 2022 4:37am Advance Directive Response Recorded Date/ Time Living Will No December 10 3:37am Power of Activity Therapy Specialist No December 10, 2022 3:37am Advance Directive Response Recorded Date/ Time Advance Directives No May 12 8:44am Living Will No May 13, 2023 8:44am Power of Activity Therapy Specialist No May 12 8:44am Advance Directive Response Recorded Date/ Time Advance Directives No May 12 8:44am Living Will No May 18, 2023 9:53pm Power of Activity Therapy Specialist No May 17 9:53pm Advance Directive Response Recorded Date/ Time Living Will No December 01 9:45am Do you have a Healthcare Power of Activity Therapy Specialist? No December 02, 2023 9:45am Living Will No December 10 4:37am Do you have a Healthcare Power of Activity Therapy Specialist? No December 10, 2022 4:37am Living Will No September 11, 2023 4:55pm Do you have a Healthcare Power of Activity Therapy Specialist? No September 11, 2023 4:55pm Living Will No January 30 11:00pm Do you have a Healthcare Power of Activity Therapy Specialist? No January 31, 2024 11:00pm Living Will No February 19 2:06pm Do you have a Healthcare Power of Activity Therapy Specialist? No February 20, 2024 2:06pm Living Will No March 16 10:05am Do you have a Healthcare Power of Activity Therapy Specialist? No March 16, 2024 10:05am Advance Directives No May 18 024 1:20pm Advance Directive Response Recorded Date/ Time Living Will No December 01 9:45am Do you have a Healthcare Power of Activity Therapy Specialist? No December 02, 2023 9:45am Living Will No December 10 4:37am Do you have a Healthcare Power of Activity Therapy Specialist? No December 10, 2022 4:37am Living Will No September 11, 2023 4:55pm Do you have a Healthcare Power of Activity Therapy Specialist? No September 11, 2023 4:55pm Living Will No March 16 10:05am Do you have a Healthcare Power of Activity Therapy Specialist? No March 16, 2024 10:05am Do you have a Healthcare Power of Activity Therapy Specialist? No June 27, 2024 4:16pm Advance Directives No May 18 024 1:20pm Advance Directive Response Recorded Date/ Time Living Will No December 01 9:45am Do you have a Healthcare Power of Activity Therapy Specialist? No December 02, 2023 9:45am Living Will No December 10 4:37am Do you have a Healthcare Power of Activity Therapy Specialist? No December 10, 2022 4:37am Living Will No September 11, 2023 4:55pm Do you have a Healthcare Power of Activity Therapy Specialist? No September 11, 2023 4:55pm Living Will No June 29, 2024 7:09am Do you have a Healthcare Power of Activity Therapy Specialist? No June 29, 2024 7:09am Advance Directives No June 29 7:09am Do you have a Healthcare Power of Activity Therapy Specialist? No June 27, 2024 4:16pm Chief Complaint and Reason for Visit Chief Complaint HAIR LOSS LEG PAIN, LEG SWELLING BILATERAL EAR DISCOMFORT NEW annual (EVS) SCREENING SCREENING MIXED INCONTINENCE PE DRUG SCREEN/DOMETIC Reason for Visit Hair loss disorder Varicose veins of both lower extremities Bilateral otitis media Abnormal uterine bleeding Dyspareunia [id number] Hypoactive sexual desire disorder Mixed incontinence urge and stress Chief Complaint BILATERAL EAR DISCOM FORT NEW annual (EVS) SCREENING SCREENING MIXED INCONTINENCE PE DRUG SCREEN/DOMETIC 6 M FU possible hysterectomy EST CARE Back pain CONCERN FOR UTI/KIDNEY INFECTION Reason for Visit Bilateral otitis med ia Abnormal uterine bleeding Dyspareunia [id number] Hypoactive sexual desire disorder Mixed incontinence urge and stress Chronic back pain Hair loss disorder Varicose veins of both lower extremities Abnormal uterine bleeding Dyspareunia Back pain Segmental and somatic dysfunction of thoracic region Back pain Segmental and somatic dysfunction of thoracic region UTI (urinary tract infection) Chief Complaint BILATERAL EAR DISCOM FORT NEW annual (EVS) SCREENING SCREENING MIXED INCONTINENCE PE DRUG SCREEN/DOMETIC 6 M FU possible hysterectomy EST CARE Back pain CONCERN FOR UTI/KIDNEY INFECTION CONCERN FOR UTI/2ND VISIT Reason for Visit Bilateral otitis med ia Abnormal uterine bleeding Dyspareunia [id number] Hypoactive sexual desire disorder Mixed incontinence urge and stress Chronic back pain Hair loss disorder Varicose veins of both lower extremities Abnormal uterine bleeding Dyspareunia Back pain Segmental and somatic dysfunction of thoracic region Back pain Segmental and somatic dysfunction of thoracic region UTI (urinary tract infection) Dysuria UTI (urinary tract infection) Chief Complaint CONCERN FOR UTI/2ND VISIT total robotic hyst BS cysto LAP ROBOTIC HYSTER, BS LAP ROBOTIC HYSTER, BS LAP ROBOTIC HYSTER, BS 2WK POST OP 6WK POST OP 2wk follow up PHYSICAL Reason for Visit Dysuria UTI (urinary tract infection) Dyspareunia Obesity Status post hysterectomy Status post hysterectomy Status post hysterectomy Vitamin B12 deficiency Varicose veins of both lower extremities Encounter for preventative adult health care examination Left foot pain Chief Complaint Sore L Breast FAMILY HISTORY OF HEART PROBLEMS HYPERTENSION INT LABS Reason for Visit Breast pain, left Family history of early CAD Generalized anxiety disorder Hyperlipidemia Hypertension Chief Complaint FAMILY HISTORY OF HE ART PROBLEMS HYPERTENSION INT LABS BILATERAL OPEN WOUND/NASAL SCREENING Reason for Visit Family history of ea rly CAD Generalized anxiety disorder Hyperlipidemia Hypertension Wound, open, nose, septum Chief Complaint FAMILY HISTORY OF HE ART PROBLEMS HYPERTENSION INT LABS BILATERAL OPEN WOUND/NASAL SCREENING HYPERTENSION HYPERTENSION Reason for Visit Family history of ea rly CAD Generalized anxiety disorder Hyperlipidemia Hypertension Wound, open, nose, septum Chief Complaint SCREENING HYPERTENSION HYPERTENSION 1 Y FU CONCERN FOR UTI LABSPEC BACK SPASM headhache Annual ([facility]) Reason for Visit Chronic fatigue Generalized anxiety disorder [place]ST[place] (obstructive sleep apnea) UTI (urinary tract infection) Back pain Erosion of transobturator mid-urethral sling Encounter for routine gynecological examination Chief Complaint headhache Annual ([facility]) 3 M FU employee labs F/U LUNG NODULE Reason for Visit Erosion of transobtu rator mid-urethral sling Encounter for routine gynecological examination Preventative health care Chronic fatigue Generalized anxiety disorder CHRISTIANA (obstructive sleep apnea) Chief Complaint headhache Annual ([facility] 3 M FU employee labs F/U LUNG NODULE VARICOSE VEIN Asymptomatic varicose veins of bilateral lower ext Reason for Visit Erosion of transobtu rator mid-urethral sling Encounter for routine gynecological examination Preventative health care Chronic fatigue Generalized anxiety disorder CHRISTIANA (obstructive sleep apnea) Varicose veins of both lower extremities Chief Complaint employee labs F/U LUNG NODULE VARICOSE VEIN Asymptomatic varicose veins of bilateral lower ext DISCUSS POSSIBLE VENOGRAM Other specified conditions associated with female Reason for Visit Varicose veins of max th lower extremities Pelvic congestion syndrome Chief Complaint F/U LUNG NODULE VARICOSE VEIN Asymptomatic varicose veins of bilateral lower ext DISCUSS POSSIBLE VENOGRAM Other specified conditions associated with female BLE VARICOSE VEINS/stat labs BLE VARICOSE VEINS/stat labs Reason for Visit Varicose veins of max th lower extremities Pelvic congestion syndrome Varicose veins of bilateral lower extremities with pain Chief Complaint F/U LUNG NODULE VARICOSE VEIN Asymptomatic varicose veins of bilateral lower ext DISCUSS POSSIBLE VENOGRAM Other specified conditions associated with female BLE VARICOSE VEINS/stat labs BLE VARICOSE VEINS/stat labs [facility]OZCO Reason for Visit Varicose veins of max th lower extremities Pelvic congestion syndrome Varicose veins of bilateral lower extremities with pain Chief Complaint Admit Date ANAPHYLAXIS, ACUTE HYPOXIC RESPIRATORY F AILURE January 31, 2024 6:43pm ANAPHYLAXIS, ACUTE HYPOXIC RESPIRATORY F AILURE February 01, 2024 2:15am ANAPHYLAXIS, ACUTE HYPOXIC RESPIRATORY F AILURE February 01, 2024 8:34am ANAPHYLAXIS, ACUTE HYPOXIC RESPIRATORY F AILURE February 02, 2024 7:13am ANAPHYLAXIS, ACUTE HYPOXIC RESPIRATORY F AILURE February 02, 2024 8:18am ANAPHYLAXIS, ACUTE HYPOXIC RESPIRATORY F AILURE February 03, 2024 8:10am ANAPHYLAXIS, ACUTE HYPOXIC RESPIRATORY F AILURE February 03, 2024 10:04am ANAPHYLAXIS, ACUTE HYPOXIC RESPIRATORY F AILURE February 04, 2024 8:31am ANAPHYLAXIS, ACUTE HYPOXIC RESPIRATORY F AILURE February 04, 2024 10:45am ANAPHYLAXIS, ACUTE HYPOXIC RESPIRATORY F AILURE February 05, 2024 7:20am ANAPHYLAXIS, ACUTE HYPOXIC RESPIRATORY F AILURE February 06, 2024 11:36am ANAPHYLAXIS, ACUTE HYPOXIC RESPIRATORY F AILURE February 07, 2024 12:07pm ANAPHYLAXIS, ACUTE HYPOXIC RESPIRATORY F AILURE February 07, 2024 4:54pm ANAPHYLAXIS, ACUTE HYPOXIC RESPIRATORY F AILURE February 08, 2024 11:23am ANAPHYLAXIS, ACUTE HYPOXIC RESPIRATORY F AILURE February 09, 2024 9:02am ANAPHYLAXIS, ACUTE HYPOXIC RESPIRATORY F AILURE February 10, 2024 12:04pm DYSPHAGIA, ACUTE AIRWAY OBSTRUCTION [facility] 2023 12:44pm OTHER February 20, 2024 12:33pm Hospital March 03, 2024 2: 49pm DYSPHAGIA. DR TO FAX RX March 25 10:00am 3 M FU April 07, 2024 2 :24pm Test Result April 25, 2024 2:59pm Compression of vein May 16, 2024 7:4 2am F/U LUNG NODULE May 17, 2024 5:4 8pm Reason for Visit Admit Date Acute airway obstruction January 30, 2 024 6:43pm Acute respiratory distress January 31, 2024 6:43pm Allergic angioedema due to ingested food January 31, 2024 6:43pm Anaphylaxis January 31, 2024 6 :43pm BMI 40.0-44.9, adult January 31, 2024 6:43pm Dysphagia January 31, 2024 6 :43pm Sinus tachycardia January 31, 2024 6 :43pm Hyperlipidemia January 31, 2024 6 :43pm Hypertension January 31, 2024 6 :43pm CHRISTIANA (obstructive sleep apnea) January 302023 6:43pm Anaphylaxis March 03, 2024 2: 49pm Celiac disease March 03, 2024 2: 49pm Dysphagia March 03, 2024 2: 49pm Dysphagia March 17, 2024 6 :41am Allergic angioedema due to ingested food April 07, 2024 2:24pm Anaphylaxis April 07, 2024 2 :24pm Celiac disease April 07, 2024 2 :24pm Dysphagia April 07, 2024 2 :24pm Vasculitis April 07, 2024 2 :24pm Allergic angioedema due to ingested food April 25, 2024 2:59pm Anaphylaxis April 25, 2024 2:59pm Celiac disease April 25, 2024 2:59pm Dysphagia April 25, 2024 2:59pm Vasculitis April 25, 2024 2:59pm Chief Complaint Admit Date Hospital FU March 03, 2024 2: 49pm DYSPHAGIA. TO FAX RX March 25 10:00am 3 M FU April 07, 2024 2 :24pm Test Result April 25, 2024 2:59pm Compression of vein May 16, 2024 7:4 2am F/U LUNG NODULE May 17, 2024 5:4 8pm 1 Y FU June 08, 2024 2:26 pm BACK PAIN/REOCCURING June 21, 2024 4: 36pm pain June 21, 2024 4:4 9pm general illness June 27, 2024 1:5 9pm Reason for Visit Admit Date Anaphylaxis March 03, 2024 2: 49pm Celiac disease March 03, 2024 2: 49pm Dysphagia March 03, 2024 2: 49pm Dysphagia March 17, 2024 6 :41am Allergic angioedema due to ingested food April 07, 2024 2:24pm Anaphylaxis April 07, 2024 2 :24pm Celiac disease April 07, 2024 2 :24pm Dysphagia April 07, 2024 2 :24pm Vasculitis April 07, 2024 2 :24pm Allergic angioedema due to ingested food April 25, 2024 2:59pm Anaphylaxis April 25, 2024 2:59pm Celiac disease April 25, 2024 2:59pm Dysphagia April 25, 2024 2:59pm Vasculitis April 25, 2024 2:59pm Iliac vein stenosis, 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 DR BARRAGAN FAX RX March 25 10:00am 3 M FU April 07, 2024 2 :24pm Test Result April 25, 2024 2:59pm Compression of vein May 16, 2024 7:4 2am F/U LUNG NODULE May 17, 2024 5:4 8pm 1 Y FU June 08, 2024 2:26 pm BACK PAIN/REOCCURING June 21, 2024 4: 36pm pain June 21, 2024 4:4 9pm general illness June 27, 2024 1:5 9pm Compression of vein June 29, 2024 6:4 4am Compression of vein June 29, 2024 2:4 1pm Reason for Visit Admit Date Allergic angioedema due to ingested food April 07, 2024 2:24pm Anaphylaxis April 07, 2024 2 :24pm Celiac disease April 07, 2024 2 :24pm Dysphagia April 07, 2024 2 :24pm Vasculitis April 07, 2024 2 :24pm Allergic angioedema due to ingested food April 25, 2024 2:59pm Anaphylaxis April 25, 2024 2:59pm Celiac disease April 25, 2024 2:59pm Dysphagia April 25, 2024 2:59pm Vasculitis April 25, 2024 2:59pm Iliac vein stenosis, 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 DR BARRAGAN FAX RX March 25 10:00am 3 M FU April 07, 2024 2 :24pm Test Result April 25, 2024 2:59pm Compression of vein May 16, 2024 7:4 2am F/U LUNG NODULE May 17, 2024 5:4 8pm 1 Y FU June 08, 2024 2:26 pm BACK PAIN/REOCCURING June 21, 2024 4: 36pm pain June 21, 2024 4:4 9pm general illness June 27, 2024 1:5 9pm Compression of vein June 29, 2024 6:4 4am Compression of vein June 29, 2024 2:4 1pm Post Venogram 3-4 WK FU July 20, 2024 1 0:01am Additional Source Comments INFORMATION SOURCE (unrecogn ized section and content) DATE CREATED AUTHOR 12/27/2019 [facility] DATE CREATED AUTHOR AUTHOR'S ORGANIZ ATION 12/28/2019 [facility] DATE CREATED AUTHOR AUTHOR'S ORGANIZ ATION 03/26/2020 [facility] DATE CREATED AUTHOR AUTHOR'S ORGANIZ ATION 12/26/2024 [facility] DATE CREATED AUTHOR AUTHOR'S ORGANIZ ATION 01/10/2025 [facility] Goals (unrecognized section and content) Goals may be documented in a n alternate section Care Teams (unrecognized sec tion and content) Team Status: Active Member Role Status Dates No Primary Care Physician Family Provider Active Dr. Mynor Garcia MD Primary Care Provider Active Team Status: Inactive Member Role Status Dates Dr. Mynor Garcia MD Primary Care Provider, Refer ring Provider Active Talia Irwin SCREENING TECH, SCREENING TECH-C Attending Provider Active Team Status: Inactive Member Role Status Dates Dr. Mynor Garcia MD Primary Care P rovider, Attending Provider, Referring Provider Active Team Status: Inactive Member Role Status Dates Dr. Mynor Garcia MD Primary Care Provider, Refer ring Provider Active Angel Eubanks SCREENING TECH, SCREENING TECH-C Attending Provider Active Team Status: Inactive Member Role Status Dates Dr. Mynor Garcia MD Primary Care Provider Active Talia Irwin SCREENING TECH, SCREENING TECH-C Attending Provider, Referring Provider Active Team Status: Active Member Role Status Dates Dr. Mynor Garcia MD Primary Care P rovider, Referring Provider, Other Provider Active Dr. Leo Oconnell MD Attending Provider Active Team Status: Inactive Member Role Status Dates Dr. Mynor Garcia MD Primary Care Provider, Refer ring Provider Active Dr. Allie Coker DO Attending Provider Activ e Team Status: Inactive Member Role Status Dates Dr. Mynor Garcia MD Primary Care Provider, Refer ring Provider Active Tomas Lewis PA, PA Attending Provider Active Team Status: Inactive Member Role Status Dates Dr. Mynor Garcia MD Primary Care Provider Active Jp Barnard MD Attending Provider, Emergency Provid er Active Team Status: Inactive Member Role Status Dates Dr. Mynor Garcia MD Primary Care Provider Active Dr. Allie Coker DO Attending Provider, Refe rring Provider Active Team Status: Inactive Member Role Status Dates Dr. Mynor Garcia MD Primary Care Provider Active Tomas BECERRIL, PA Attending Provider Active Team Status: Inactive Member Role Status Dates Dr. Mynor Garcia MD Primary Care Provider, Atten ding Provider Active Team Status: Active Member Role Status Dates Dr. Mynor Garcia MD Primary Care Provider Active Health Risk Assessment Attending Provider, Referring P kasey Active Team Status: Inactive Member Role Status Dates Dr. Mynor Garcia MD Primary Care Provider, Refer ring Provider Active JERRICA Terry Attending Provider Active Team Status: Active Member Role Status Dates Dr. Mynor Garcia MD Primary Care Provider Active Dr. Marck Thompson MD Attending Provider Active Team Status: Inactive Member Role Status Dates Dr. Mynor Garcia MD Primary Care Provider Active JERRICA Terry Attending Provider, Referring Provid er Active Team Status: Active Member Role Status Dates Dr. Mynor Garcia MD Primary Care Provider Active Dr. Marck Thompson MD Attending Provider Active JERRICA Terry Referring Provider Active Team Status: Inactive Member Role Status Dates Dr. Mynor Garcia MD Primary Care Provider, Refer ring Provider Active Dr. Marck Thompson MD Attending Provider Active Team Status: Inactive Member Role Status Dates Dr. Mynor Garcia MD Primary Care Provider Active Dr. Marck Thompson MD Attending Provider, Referring Pro vider Active Team Status: Active Member Role Status Dates Dr. Mynor Garcia MD Primary Care Provider Active Dr. Marck Thompson MD Attending Provider, Referring Provider, Other Provider Active Team Status: Inactive Member Role Status Dates Dr. Mynor Garcia MD Primary Care Provider Active Dr. Wayne Lara MD Emergency Provider Active Team Status: Active Member Role Status Dates Andreas Calvert VSC, SCREENING TECH-C Primary Care Provider Active Team Status: Inactive Member Role Status Dates Andreas Calvert VSRanjan, SCREENING TECH-C Primary Care Provider Active Start: January 31, 2024 End: February 10, 2024 Dr. Mickey Gage MD Emergency Provider Active Sta rt: January 31, 2024 End: February 10, 2024 Dr. Mary Kern MD Admit Provider Active St art: January 31, 2024 End: February 10, 2024 Dr. Mary Kern MD Other Provider Active St art: January 31, 2024 End: February 10, 2024 Dr. Jez Cuba MD Other Provider Active Star t: January 31, 2024 End: February 10, 2024 Dr. Brian Zuniga DO Other Provider Active St art: January 31, 2024 End: February 10, 2024 Dr. Omar Betancourt MD Attending Provider Active Start: January 31, 2024 End: February 10, 2024 Dr. Abdias Gallagher DO Other Provider Active Start: January 31, 2024 End: February 10, 2024 Team Status: Active Member Role Status Dates Andreas Calvert [facility], SCREENING TECH-C Primary Care Provider Active Start: February 01, 2024 Dr. Mickey Gage MD Emergency Provider Active Sta rt: February 01, 2024 Dr. Mary Kern MD Admit Provider Active St art: February 01, 2024 Dr. Mary Kern MD Other Provider Active St art: February 01, 2024 Dr. Sarabjit Rodríguez MD Other Provider Active Start: February 01, 2024 Dr. Sharad Nelson MD Other Provider Active Start: February 01, 2024 Dr. Jimbo Feliciano MD Other Provider Active Star t: February 01, 2024 Dr. Raulito Campbell DO Other Provider Active Start : February 01, 2024 Dr. Jez Grayson MD Other Provider Active Sta rt: February 01, 2024 Dr. Juanpablo Musa MD Other Provider Active St art: February 01, 2024 Dr. Miquel Sam MD Other Provider Active S tart: February 01, 2024 Dr. Sunita Andersen MD Other Provider Active Start: February 01, 2024 Dr. Miguel A Franz MD Other Provider Active Start : February 01, 2024 Dr. Rishi Alvarado MD Other Provider Active Start: February 01, 2024 Dr. Flora Roberson MD Other Provider Active Star t: February 01, 2024 Dr. Misa Euceda MD Other Provider Active Sta rt: February 01, 2024 Dr. Pee Parry MD Other Provider Active Star t: February 01, 2024 Dr. Manan Carson MD Other Provider Active St art: February 01, 2024 Dr. Juvenal Perez MD Other Provider Active Star t: February 01, 2024 Dr. Partha Booth , Other Provider Active St art: February 01, 2024 Dr. Shital Blanco MD Other Provider Active Start: February 01, 2024 Dr. Giovanny Juan DO Other Provider Active Start: February 01, 2024 Dr. Armani San MD Other Provider Active Star t: February 01, 2024 Dr. Lyle Rodriguez MD Other Provider Active Sta rt: February 01, 2024 Dr. Jez Cuba MD Attending Provider Active Start: February 01, 2024 Team Status: Active Member Role Status Dates Andreas Calvert [facility], SCREENING TECH-C Primary Care Provider Active Start: February 01, 2024 Dr. Mickey Gage MD Emergency Provider Active Sta rt: February 01, 2024 Dr. Mary Kern MD Admit Provider Active St art: February 01, 2024 Dr. Mary Kern MD Other Provider Active St art: February 01, 2024 Dr. Sarabjit Rodríguez MD Other Provider Active Start: February 01, 2024 Dr. Sharad Nelson MD Other Provider Active Start: February 01, 2024 Dr. Jimbo Feliciano MD Other Provider Active Star t: February 01, 2024 Dr. Raulito Campbell DO Attending Provider Active S tart: February 01, 2024 Dr. Raulito Campbell DO Other Provider Active Start : February 01, 2024 Dr. Jez Grayson MD Other Provider Active Sta rt: February 01, 2024 Dr. Juanpablo Musa MD Other Provider Active St art: February 01, 2024 Dr. Miquel Sam MD Other Provider Active S tart: February 01, 2024 Dr. Sunita Andersen MD Other Provider Active Start: February 01, 2024 Dr. Miguel A Franz MD Other Provider Active Start : February 01, 2024 Dr. Rishi Alvarado MD Other Provider Active Start: February 01, 2024 Dr. Flora Roberson MD Other Provider Active Star t: February 01, 2024 Dr. Misa Euceda MD Other Provider Active Sta rt: February 01, 2024 Dr. Pee Parry MD Other Provider Active Star t: February 01, 2024 Dr. Manan Carson MD Other Provider Active St art: February 01, 2024 Dr. Juvenal Perez MD Other Provider Active Star t: February 01, 2024 Dr. Partha Booth , Other Provider Active St art: February 01, 2024 Dr. Shital Blanco MD Other Provider Active Start: February 01, 2024 Dr. Giovanny Juan DO Other Provider Active Start: February 01, 2024 Dr. Armani San MD Other Provider Active Star t: February 01, 2024 Dr. Lyle Rodriguez MD Other Provider Active Sta rt: February 01, 2024 Dr. Jez Cuba MD Referring Provider Active Start: February 01, 2024 Dr. Jez Cuba MD Other Provider Active Star t: February 01, 2024 Team Status: Active Member Role Status Dates Andreas Calvert [facility], SCREENING TECH-C Primary Care Provider Active Start: February 02, 2024 Dr. Mickey Gage MD Emergency Provider Active Sta rt: February 02, 2024 Dr. Mary Kern MD Admit Provider Active St art: February 02, 2024 Dr. Mary Kern MD Other Provider Active St art: February 02, 2024 Dr. Sarabjit Rodríguez MD Other Provider Active Start: February 02, 2024 Dr. Sharad Nelson MD Other Provider Active Start: February 02, 2024 Dr. Jimbo Feliciano MD Other Provider Active Star t: February 02, 2024 Dr. Raulito Campbell DO Other Provider Active Start : February 02, 2024 Dr. Jez Grayson MD Other Provider Active Sta rt: February 02, 2024 Dr. Juanpablo Musa MD Other Provider Active St art: February 02, 2024 Dr. Miquel Sam MD Other Provider Active S tart: February 02, 2024 Dr. Sunita Andersen MD Other Provider Active Start: February 02, 2024 Dr. Miguel A Franz MD Other Provider Active Start : February 02, 2024 Dr. Rishi Alvarado MD Other Provider Active Start: February 02, 2024 Dr. Flora Roberson MD Other Provider Active Star t: February 02, 2024 Dr. Misa Euceda MD Other Provider Active Sta rt: February 02, 2024 Dr. Pee Parry MD Other Provider Active Star t: February 02, 2024 Dr. Manan Carson MD Other Provider Active St art: February 02, 2024 Dr. Juvenal Perez MD Other Provider Active Star t: February 02, 2024 Dr. Partha Booth , Other Provider Active St art: February 02, 2024 Dr. Shital Blanco MD Other Provider Active Start: February 02, 2024 Dr. Giovanny Juan , Other Provider Active Start: February 02, 2024 Dr. Armani San MD Other Provider Active Star t: February 02, 2024 Dr. Lyle Rodriguez MD Other Provider Active Sta rt: February 02, 2024 Dr. Jez Cuba MD Attending Provider Active Start: February 02, 2024 Dr. Jez Cuba MD Other Provider Active Star t: February 02, 2024 Team Status: Active Member Role Status Dates Andreas Calvert [facility], SCREENING TECH-C Primary Care Provider Active Start: February 02, 2024 Dr. Mickey Gage MD Emergency Provider Active Sta rt: February 02, 2024 Dr. Mary Kern MD Admit Provider Active St art: February 02, 2024 Dr. Mary Kern MD Other Provider Active St art: February 02, 2024 Dr. Sarabjit Rodríguez MD Other Provider Active Start: February 02, 2024 Dr. Sharad Nelson MD Other Provider Active Start: February 02, 2024 Dr. Jimbo Feliciano MD Other Provider Active Star t: February 02, 2024 Dr. Raulito Campbell DO Attending Provider Active S tart: February 02, 2024 Dr. Raulito Campbell DO Other Provider Active Start : February 02, 2024 Dr. Jez Grayson MD Other Provider Active Sta rt: February 02, 2024 Dr. Juanpablo Musa MD Other Provider Active St art: February 02, 2024 Dr. Miquel Sam MD Other Provider Active S tart: February 02, 2024 Dr. Sunita Andersen MD Other Provider Active Start: February 02, 2024 Dr. Miguel A Franz MD Other Provider Active Start : February 02, 2024 Dr. Rishi Alvarado MD Other Provider Active Start: February 02, 2024 Dr. Flora Roberson MD Other Provider Active Star t: February 02, 2024 Dr. Misa Euceda MD Other Provider Active Sta rt: February 02, 2024 Dr. Pee Parry MD Other Provider Active Star t: February 02, 2024 Dr. Manan Carson MD Other Provider Active St art: February 02, 2024 Dr. Juvenal Perez MD Other Provider Active Star t: February 02, 2024 Dr. Partha Booth DO Other Provider Active St art: February 02, 2024 Dr. Shital Blanco MD Other Provider Active Start: February 02, 2024 Dr. Giovanny Juan DO Other Provider Active Start: February 02, 2024 Dr. Armani San MD Other Provider Active Star t: February 02, 2024 Dr. Lyle Rodriguez MD Other Provider Active Sta rt: February 02, 2024 Dr. Jez Cuba MD Referring Provider Active Start: February 02, 2024 Dr. Jez Cuba MD Other Provider Active Star t: February 02, 2024 Team Status: Active Member Role Status Dates Andreas Calvert [facility], SCREENING TECH-C Primary Care Provider Active Start: February 03, 2024 Dr. Mickey Gage MD Emergency Provider Active Sta rt: February 03, 2024 Dr. Mary Kern MD Admit Provider Active St art: February 03, 2024 Dr. Mary Kern MD Other Provider Active St art: February 03, 2024 Dr. Sarabjit Rodríguez MD Other Provider Active Start: February 03, 2024 Dr. Sharad Nelson MD Other Provider Active Start: February 03, 2024 Dr. Jimbo Feliciano MD Other Provider Active Star t: February 03, 2024 Dr. Raulito Campbell DO Other Provider Active Start : February 03, 2024 Dr. Jez Grayson MD Other Provider Active Sta rt: February 03, 2024 Dr. Juanpablo Musa MD Other Provider Active St art: February 03, 2024 Dr. Miquel Sam MD Other Provider Active S tart: February 03, 2024 Dr. Sunita Andersen MD Other Provider Active Start: February 03, 2024 Dr. Miguel A Franz MD Other Provider Active Start : February 03, 2024 Dr. Rishi Alvarado MD Other Provider Active Start: February 03, 2024 Dr. Flora Roberson MD Other Provider Active Star t: February 03, 2024 Dr. Misa Euceda MD Other Provider Active Sta rt: February 03, 2024 Dr. Pee Parry MD Other Provider Active Star t: February 03, 2024 Dr. Manan Carson MD Other Provider Active St art: February 03, 2024 Dr. Juvenal Perez MD Other Provider Active Star t: February 03, 2024 Dr. Partha Booth , Other Provider Active St art: February 03, 2024 Dr. Shital Blanco MD Other Provider Active Start: February 03, 2024 Dr. Giovanny Juan DO Other Provider Active Start: February 03, 2024 Dr. Armani San MD Other Provider Active Star t: February 03, 2024 Dr. Lyle Rodriguez MD Other Provider Active Sta rt: February 03, 2024 Dr. Jez Cuba MD Attending Provider Active Start: February 03, 2024 Dr. Jez Cuba MD Other Provider Active Star t: February 03, 2024 Team Status: Active Member Role Status Dates Andreas Calvert [facility], SCREENING TECH-C Primary Care Provider Active Start: February 03, 2024 Dr. Mickey Gage MD Emergency Provider Active Sta rt: February 03, 2024 Dr. Mary Kern MD Admit Provider Active St art: February 03, 2024 Dr. Mary Kern MD Other Provider Active St art: February 03, 2024 Dr. Sarabjit Rodríguez MD Other Provider Active Start: February 03, 2024 Dr. Sharad Nelson MD Other Provider Active Start: February 03, 2024 Dr. Jimbo Feliciano MD Other Provider Active Star t: February 03, 2024 Dr. Raulito Campbell DO Attending Provider Active S tart: February 03, 2024 Dr. Raulito Campbell DO Other Provider Active Start : February 03, 2024 Dr. Jez Grayson MD Other Provider Active Sta rt: February 03, 2024 Dr. Juanpablo Musa MD Other Provider Active St art: February 03, 2024 Dr. Miquel Sam MD Other Provider Active S tart: February 03, 2024 Dr. Sunita Andersen MD Other Provider Active Start: February 03, 2024 Dr. Miguel A Franz MD Other Provider Active Start : February 03, 2024 Dr. Rishi Alvarado MD Other Provider Active Start: February 03, 2024 Dr. Flora Roberson MD Other Provider Active Star t: February 03, 2024 Dr. Misa Euceda MD Other Provider Active Sta rt: February 03, 2024 Dr. Pee Parry MD Other Provider Active Star t: February 03, 2024 Dr. Manan Carson MD Other Provider Active St art: February 03, 2024 Dr. Juvenal Perez MD Other Provider Active Star t: February 03, 2024 Dr. Partha Booth , Other Provider Active St art: February 03, 2024 Dr. Shital Blanco MD Other Provider Active Start: February 03, 2024 Dr. Giovanny Juan DO Other Provider Active Start: February 03, 2024 Dr. Armani San MD Other Provider Active Star t: February 03, 2024 Dr. Lyle Rodriguez MD Other Provider Active Sta rt: February 03, 2024 Dr. Jez Cuba MD Referring Provider Active Start: February 03, 2024 Dr. Jez Cuba MD Other Provider Active Star t: February 03, 2024 Team Status: Active Member Role Status Dates Andreas Calvert [facility], SCREENING TECH-C Primary Care Provider Active Start: February 04, 2024 Dr. Mickey Gage MD Emergency Provider Active Sta rt: February 04, 2024 Dr. Mary Kern MD Admit Provider Active St art: February 04, 2024 Dr. Mary Kern MD Other Provider Active St art: February 04, 2024 Dr. Sarabjit Rodríguez MD Other Provider Active Start: February 04, 2024 Dr. Sharad Nelson MD Other Provider Active Start: February 04, 2024 Dr. Jimbo Feliciano MD Other Provider Active Star t: February 04, 2024 Dr. Raulito Campbell DO Other Provider Active Start : February 04, 2024 Dr. Jez Grayson MD Other Provider Active Sta rt: February 04, 2024 Dr. Juanpablo Musa MD Other Provider Active St art: February 04, 2024 Dr. Miquel Sam MD Other Provider Active S tart: February 04, 2024 Dr. Sunita Andersen MD Other Provider Active Start: February 04, 2024 Dr. Miguel A Franz MD Other Provider Active Start : February 04, 2024 Dr. Rishi Alvarado MD Other Provider Active Start: February 04, 2024 Dr. Flora Roberson MD Other Provider Active Star t: February 04, 2024 Dr. Misa Euceda MD Other Provider Active Sta rt: February 04, 2024 Dr. Pee Parry MD Other Provider Active Star t: February 04, 2024 Dr. Manan Carson MD Other Provider Active St art: February 04, 2024 Dr. Juvenal Perez MD Other Provider Active Star t: February 04, 2024 Dr. Partha Booth DO Other Provider Active St art: February 04, 2024 Dr. Shital Blanco MD Other Provider Active Start: February 04, 2024 Dr. Giovanny Juan DO Other Provider Active Start: February 04, 2024 Dr. Armani San MD Other Provider Active Star t: February 04, 2024 Dr. Lyle Rodriguez MD Other Provider Active Sta rt: February 04, 2024 Dr. Jez Cuba MD Attending Provider Active Start: February 04, 2024 Dr. Jez Cuba MD Other Provider Active Star t: February 04, 2024 Team Status: Active Member Role Status Dates Andreas GARCIA, SCREENING TECH-C Primary Care Provider Active Start: February 04, 2024 Dr. Mickey Gage MD Emergency Provider Active Sta rt: February 04, 2024 Dr. Mary Kern MD Admit Provider Active St art: February 04, 2024 Dr. Mary Kern MD Other Provider Active St art: February 04, 2024 Dr. Jez Cuba MD Referring Provider Active Start: February 04, 2024 Dr. Jez Cuba MD Other Provider Active Star t: February 04, 2024 Dr. Raulito Campbell DO Attending Provider Active S tart: February 04, 2024 Team Status: Active Member Role Status Dates Andreas BENITEZ, SCREENING TECH-C Primary Care Provider Active Start: February 05, 2024 Dr. Mickey Gage MD Emergency Provider Active Sta rt: February 05, 2024 Dr. Mary Kern MD Admit Provider Active St art: February 05, 2024 Dr. Mary Kern MD Other Provider Active St art: February 05, 2024 Dr. Jez Cuba MD Attending Provider Active Start: February 05, 2024 Dr. Jez Cuba MD Other Provider Active Star t: February 05, 2024 Team Status: Active Member Role Status Dates Andreas Nehal [facility], SCREENING TECH-C Primary Care Provider Active Start: February 06, 2024 Dr. Mickey Gage MD Emergency Provider Active Sta rt: February 06, 2024 Dr. Mary Kern MD Admit Provider Active St art: February 06, 2024 Dr. Mary Kern MD Other Provider Active St art: February 06, 2024 Dr. Abdias Gallagher DO Attending Provider Active Start: February 06, 2024 Dr. Abdias Gallagher DO Other Provider Active Start: February 06, 2024 Dr. Jez Cuba MD Other Provider Active Star t: February 06, 2024 Team Status: Active Member Role Status Dates Andreas Nehal GARCIA, SCREENING TECH-C Primary Care Provider Active Start: February 07, 2024 Dr. Mickey Gage MD Emergency Provider Active Sta rt: February 07, 2024 Dr. Mary Kern MD Admit Provider Active St art: February 07, 2024 Dr. Mary Kern MD Other Provider Active St art: February 07, 2024 Dr. Abdias Gallagher DO Attending Provider Active Start: February 07, 2024 Dr. Abdias Gallagher DO Other Provider Active Start: February 07, 2024 Dr. Jez Cuba MD Other Provider Active Star t: February 07, 2024 Team Status: Active Member Role Status Dates Andreas Nehal Ran[facility], SCREENING TECH-C Primary Care Provider Active Start: February 07, 2024 Dr. Mickey Gage MD Emergency Provider Active Sta rt: February 07, 2024 Dr. Mary Kern MD Admit Provider Active St art: February 07, 2024 Dr. Mary Kern MD Other Provider Active St art: February 07, 2024 Dr. Jez Cuba MD Other Provider Active Star t: February 07, 2024 Dr. Brian Zuniga DO Attending Provider Active Start: February 07, 2024 Dr. Brian Zuniga DO Other Provider Active St art: February 07, 2024 Dr. Omar Betancourt MD Other Provider Active Start: February 07, 2024 Dr. Abdias Gallagher DO Referring Provider Active Start: February 07, 2024 Dr. Abdias Gallagher DO Other Provider Active Start: February 07, 2024 Team Status: Active Member Role Status Dates Andreas Nehal BENITEZ, SCREENING TECH-C Primary Care Provider Active Start: February 08, 2024 Dr. Mickey Gage MD Emergency Provider Active Sta rt: February 08, 2024 Dr. Mary Kern MD Admit Provider Active St art: February 08, 2024 Dr. Mary Kern MD Other Provider Active St art: February 08, 2024 Dr. Jez Cuba MD Other Provider Active Star t: February 08, 2024 Dr. Brian Zuniga DO Other Provider Active St art: February 08, 2024 Dr. Omar Betancourt MD Attending Provider Active Start: February 08, 2024 Dr. Omar Betancourt MD Other Provider Active Start: February 08, 2024 Dr. Abdias Gallagher DO Other Provider Active Start: February 08, 2024 Team Status: Active Member Role Status Dates Andreas Nehal BENITEZ, SCREENING TECH-C Primary Care Provider Active Start: February 08, 2024 Dr. Brian Zuniga DO Attending Provider Active Start: February 08, 2024 Dr. Abdias Gallagher DO Referring Provider Active Start: February 08, 2024 Team Status: Active Member Role Status Dates Andreas Nehal BENITEZ, SCREENING TECH-C Primary Care Provider Active Start: February 09, 2024 Dr. Mickey Gage MD Emergency Provider Active Sta rt: February 09, 2024 Dr. Mary Kern MD Admit Provider Active St art: February 09, 2024 Dr. Mary Kern MD Other Provider Active St art: February 09, 2024 Dr. Jez Cuba MD Other Provider Active Star t: February 09, 2024 Dr. Brian Zuniga DO Other Provider Active St art: February 09, 2024 Dr. Omar Betancourt MD Attending Provider Active Start: February 09, 2024 Dr. Omar Betancourt MD Other Provider Active Start: February 09, 2024 Dr. Abdias Gallagher DO Other Provider Active Start: February 09, 2024 Team Status: Active Member Role Status Dates Andreas Nehal BENITEZ, SCREENING TECH-C Primary Care Provider Active Start: February 10, 2024 Dr. Mickey Gage MD Emergency Provider Active Sta rt: February 10, 2024 Dr. Mary Kern MD Admit Provider Active St art: February 10, 2024 Dr. Mary Kern MD Other Provider Active St art: February 10, 2024 Dr. Jez Cuba MD Other Provider Active Star t: February 10, 2024 Dr. Brian Zuniga DO Other Provider Active St art: February 10, 2024 Dr. Omar Betancourt MD Attending Provider Active Start: February 10, 2024 Dr. Omar Betancourt MD Other Provider Active Start: February 10, 2024 Dr. Abdias Gallagher DO Other Provider Active Start: February 10, 2024 Team Status: Inactive Member Role Status Dates Andreas Calvert [facility], SCREENING TECH-C Primary Care Provider Active Start: February 16, 2024 End: February 16, 2024 Zebulun Beam VSC, SCREENING TECH-C Attending Provider Active Start: February 16, 2024 End: February 16, 2024 Team Status: Inactive Member Role Status Dates Andreas Chuader [facility], SCREENING TECH-C Primary Care Provider Active Start: February 18, 2024 End: February 18, 2024 Zebulun Beam V[facility], SCREENING TECH-C Attending Provider Active Start: February 18, 2024 End: February 18, 2024 Zebulun Beam V[facility], SCREENING TECH-C Referring Provider Active Start: February 18, 2024 End: February 18, 2024 Team Status: Inactive Member Role Status Dates Andreas Calvert [facility], SCREENING TECH-C Primary Care Provider Active Start: February 20, 2024 End: February 20, 2024 Dr. Alex Perales DO Attending Provider Active Start: February 20, 2024 End: February 20, 2024 Dr. Alex Perales DO Emergency Provider Active Start: February 20, 2024 End: February 20, 2024 Team Status: Inactive Member Role Status Dates Andreas Calvert [facility], SCREENING TECH-C Primary Care Provider Active Start: March 03, 2024 End: March 03, 2024 Andreas Calvert [facility], SCREENING TECH-C Referring Provider Active S tart: March 03, 2024 End: March 03, 2024 Dr. Brian Zuniga DO Attending Provider Active Start: March 03, 2024 End: March 03, 2024 Team Status: Inactive Member Role Status Dates Andreas Chuader V[facility], SCREENING TECH-C Primary Care Provider Active Start: March 17, 2024 End: March 17, 2024 Andreas Chuader VSC, SCREENING TECH-C Referring Provider Active S tart: March 17, 2024 End: March 17, 2024 Dr. Brian Zuniga DO Attending Provider Active Start: March 17, 2024 End: March 17, 2024 Dr. Juvenal Hansen MD Other Provider Active Sta rt: March 17, 2024 End: March 17, 2024 JERRICA Denton Other Provider Active Star t: March 17, 2024 End: March 17, 2024 Team Status: Active Member Role Status Dates Andreas Chuader [facility], SCREENING TECH-C Primary Care Provider Active Start: March 17, 2024 Andreas Nehal GARCIAC, SCREENING TECH-C Referring Provider Active S tart: March 17, 2024 Dr. Brian Zuniga DO Attending Provider Active Start: March 17, 2024 Dr. Brian Zuniga DO Other Provider Active St art: March 17, 2024 Team Status: Active Member Role Status Dates Andreas Chuader V[facility], SCREENING TECH-C Primary Care Provider Active Start: March 25, 2024 Dr. Omar Betancourt MD Attending Provider Active Start: March 25, 2024 Dr. Omar Betancourt MD Referring Provider Active Start: March 25, 2024 Team Status: Inactive Member Role Status Dates Andreas Chuader [facility], SCREENING TECH-C Primary Care Provider Active Start: April 07, 2024 End: April 07, 2024 Andreas ChuaSuttonC, SCREENING TECH-C Referring Provider Active S tart: April 07, 2024 End: April 07, 2024 Dr. Brian Zuniga DO Attending Provider Active Start: April 07, 2024 End: April 07, 2024 Team Status: Inactive Member Role Status Dates Andreas Calvert [facility], SCREENING TECH-C Primary Care Provider Active Start: April 11, 2024 End: April 11, 2024 Dr. Brian Zuniga DO Attending Provider Active Start: April 11, 2024 End: April 11, 2024 Dr. Brian Zuniga DO Referring Provider Active Start: April 11, 2024 End: April 11, 2024 Team Status: Inactive Member Role Status Dates Andreas Calvert [facility], SCREENING TECH-C Primary Care Provider Active Start: April 25, 2024 End: April 25, 2024 Andreas Chuader VSC, SCREENING TECH-C Referring Provider Active S tart: April 25, 2024 End: April 25, 2024 Dr. Brian Zuniga DO Attending Provider Active Start: April 25, 2024 End: April 25, 2024 Team Status: Inactive Member Role Status Dates Andreas Calvert [facility], SCREENING TECH-C Primary Care Provider Active Start: May 16, 2024 End: May 16, 2024 JERRICA Terry Attending Provider Active Star t: May 16, 2024 End: May 16, 2024 JERRICA Terry Referring Provider Active Star t: May 16, 2024 End: May 16, 2024 Team Status: Active Member Role Status Dates Andreas Nehal [facility], SCREENING TECH-C Primary Care Provider Active Start: May 16, 2024 Dr. Marck Thompson MD Attending Provider Active S tart: May 16, 2024 JERRICA Terry Referring Provider Active Star t: May 16, 2024 Team Status: Active Member Role Status Dates Dr. Mynor Garcia MD Attending Provider Active Start: May 17, 2024 Dr. Mynor Garcia MD Referring Provider Active Start: May 17, 2024 Andreas Calvert VSC, SCREENING TECH-C Primary Care Provider Active Start: May 17, 2024 Team Status: Inactive Member Role Status Dates Dr. Mynor Garcia MD Attending Provider Active Start: May 17, 2024 End: May 17, 2024 Dr. Mynor Garcia MD Referring Provider Active Start: May 17, 2024 End: May 17, 2024 Andreas Nehal VSC, SCREENING TECH-C Primary Care Provider Active Start: May 17, 2024 End: May 17, 2024 Team Status: Inactive Member Role Status Dates Andreas Chuader VSC, SCREENING TECH-C Primary Care Provider Active Start: June 08, 2024 End: June 08, 2024 Andreas Nehal VSC, SCREENING TECH-C Referring Provider Active S tart: June 08, 2024 End: June 08, 2024 JERRICA Terry Attending Provider Active Star t: June 08, 2024 End: June 08, 2024 Team Status: Inactive Member Role Status Dates Andreas Nehal VSC, SCREENING TECH-C Primary Care Provider Active Start: June 21, 2024 End: June 21, 2024 Andreas Nehal GARCIAC, SCREENING TECH-C Referring Provider Active S tart: June 21, 2024 End: June 21, 2024 JERRICA Livingston Attending Provider Active Start: June 21, 2024 End: June 21, 2024 Team Status: Inactive Member Role Status Dates JERRICA Livingston Attending Provider Active Start: June 21, 2024 End: June 21, 2024 JERRICA Livingston Referring Provider Active Start: June 21, 2024 End: June 21, 2024 Andreas Nehal VSC, SCREENING TECH-C Primary Care Provider Active Start: June 21, 2024 End: June 21, 2024 Team Status: Inactive Member Role Status Dates Andreas Nehal V[facility], SCREENING TECH-C Primary Care Provider Active Start: June 27, 2024 End: June 27, 2024 Dr. Alex Perales DO Emergency Provider Active Start: June 27, 2024 End: June 27, 2024 Team Status: Inactive Member Role Status Dates Andreas Nehal [facility], SCREENING TECH-C Primary Care Provider Active Start: March 25, 2024 End: March 25, 2024 Dr. Omar Betancourt MD Attending Provider Active Start: March 25, 2024 End: March 25, 2024 Dr. Omar Betancourt MD Referring Provider Active Start: March 25, 2024 End: March 25, 2024 Team Status: Inactive Member Role Status Dates Andreas Calvert V[facility], SCREENING TECH-C Primary Care Provider Active Start: June 27, 2024 End: June 27, 2024 Dr. Alex Perales DO Attending Provider Active Start: June 27, 2024 End: June 27, 2024 Dr. Alex Perales DO Emergency Provider Active Start: June 27, 2024 End: June 27, 2024 Team Status: Inactive Member Role Status Dates Andreas Calvert [facility], SCREENING TECH-C Primary Care Provider Active Start: June 29, 2024 End: June 29, 2024 Dr. Marck Thompson MD Attending Provider Active S tart: June 29, 2024 End: June 29, 2024 Dr. Marck Thompson MD Referring Provider Active S tart: June 29, 2024 End: June 29, 2024 Team Status: Active Member Role Status Dates Andreas Calvert VSC, SCREENING TECH-C Primary Care Provider Active Start: June 29, 2024 Dr. Marck Thompson MD Attending Provider Active S tart: June 29, 2024 Dr. Marck Thompson MD Referring Provider Active S tart: June 29, 2024 Dr. Marck Thompson MD Other Provider Active Start : June 29, 2024 Team Status: Inactive Member Role Status Dates Andreas Calvert VSC, SCREENING TECH-C Primary Care Provider Active Start: July 20, 2024 End: July 20, 2024 Andreas Calvert VSC, SCREENING TECH-C Referring Provider Active S tart: July 20, 2024 End: July 20, 2024 JERRICA Terry Attending Provider Active Star t: July 20, 2024 End: July 20, 2024 Source Comments (unrecognize d section and content) In the event this informatio n is protected by the Federal Confidentiality of Alcohol and Drug Abuse Patient Records regulations: The Federal rules restrict any use of the information to criminally investigate or prosecute any alcohol or drug abuse patient[facility] event this information is protected by the Federal Confidentiality of Alcohol and Drug Abuse Patient Records regulations: The Federal rules restrict any use of the information to criminally investigate or prosecute any alcohol or drug abuse patient[facility] Reason for Visit (unrecogniz ed section and content) Reason Comments Radio Gen A21 Specialty Diagnoses / Procedures Referred By Contac t Referred To Contact XR IMAGING Diagnoses Acute anterior uveitis Polyarthralgia Procedures XR HAND GENERAL 3V PA/LAT/OBL BILATERAL RADEX HAND MINIMUM 3 VIEWS Jordan Ayala MD [address] [place] [address] Phone: tel: fax: [place] [id number] Referral ID Status Reason Start Date Expiration Date V isits Requested Visits Authorized [id number] Closed Auto-Generate d Referral 10/07/2024 11/06/2025 1 1 Reason Comments Joint Pain FOR RECORDS PERTAINING TO PATIENTS WHO ARE [...] BE BASED ON THE PRIMARY CLINICAL RECORDS. [facility]. provides no warranty or guarantee of the accuracy or completeness of information in this document.
--- NOTE | 2025-02-24 14:21 | EKG12_ITS ---
Test Reason : GENERAL ILLNESS Blood Pressure : */* mmHG Vent. Rate : 78 BPM Atrial Rate : 78 BPM P-R Int : 164 ms QRS Dur : 92 ms QT Int : 388 ms P-R-T Axes : 27 7 21 degrees QTcB Int : 442 ms Normal sinus rhythm Normal ECG Confirmed by Jez Costa ([id number]), manager editorial DANYA ONTIVEROS ([id number]) on 02/28/2025 6:15:15 AM Referred By: Confirmed By: Jez Costa
== END 2025-02-24 15:30 | disposition home or self-care (01) ==
PROVIDERS: Emergency Provider Emergency Medicine; PCP Nurse Practitioner Family; Visit Provider Emergency Medicine
DX: U07.1 COVID-19 (principal); E78.5 Hyperlipidemia, unspecified; I10 Essential (primary) hypertension; J06.9 Acute upper respiratory infection, unspecified; G47.33 Obstructive sleep apnea (adult) (pediatric); Z99.89 Dependence on other enabling machines and devices; Z90.49 Acquired absence of other specified parts of digestive tract; Z90.710 Acquired absence of both cervix and uterus; Z98.41 Cataract extraction status, right eye; Z98.42 Cataract extraction status, left eye; Z98.51 Tubal ligation status
CPT/HCPCS: 71046; 87631; 87651; 93005; 99282